=== PATIENT | female | born 1940 | race Caucasian/White ===

== ENCOUNTER 2016-08-28 12:55 | Outpatient (RCR) | payer MEDICARE, OTHER ==
--- OUTSIDE RECORDS SUMMARY | 2016-07-10 09:30 | XMS REPORT | Continuity of Care Document ---
Author Author [facility] Organization [facility] Address Unknown Phone Unavailable Care Team Providers Care Drywall Professional Name Role Phone Elizabeth Jaramillo III PCP [phone] Source Comments Some departments are not documenting in the electronic medical record. If you do not see the information that you expected, contact Release of Information in the Health Information Management department at [phone] for further assistance in locating additional records.[facility] Active Allergies and Adverse Reactions Allergen Noted Date Severity Reactions Comments Amoxicillin 05/07/2015 Medium RASH Chocolate 05/07/2015 Low HEADACHE Lanolin 05/07/2015 Low SEE COMMENTS Patient experiences swelling and hot skin to the touch. Latex 05/07/2015 Medium RASH, ITCHING Current Medications Prescription Sig. Disp. Refills Start End Date Status Date pregabalin (LYRICA) 50 mg Take 50 mg by mouth every Active capsule other day as needed. Patient takes medication once every other day ciprofloxacin HCl (CIPRO) Take 250 mg by mouth Active 250 mg tablet twice daily. lisinopril (PRINIVIL; Take 20 mg by mouth Active ZESTRIL) 20 mg tablet daily. ranitidine(+) (ZANTAC) Take 150 mg by mouth Active 150 mg tablet twice daily. ANTIOX Take by mouth. Active #11/OM3/DHA/EPA/LUT/CLAUDIA (OCUVITE ADULT 50+ PO) MULTIVIT-MIN/FA/LYCOPENE/ Take by mouth daily. Active LUT (SENTRY SENIOR PO) IBUPROFEN PO Take by mouth daily. Active cetirizine (ALLERGY Take 10 mg by mouth as Active RELIEF (CETIRIZINE)) 10 Needed for Allergy mg tablet symptoms. artificial Apply 1 Drop to both eyes Active tears/hypromellose daily. Two drops in each (ISOPTO TEARS) 0.5 % eye daily. ophthalmic solution INSULIN Inject 34 Units into Active GLARGINE,HUM.REC.ANLOG area(s) as directed (LANTUS SC) daily. potassium Patient takes one capsule Active a day for four days every other week. Active Problems Problem Noted Date Adenocarcinoma of the endometrium/uterus (HCC) 05/09/2015 Overview: Referring Physician: Dr. Cirilo Salinas PCP: Blanche Jaramillo APRN Wound care: Dr. Eitan Herreraarp 74 yo with endometrial adenocarcinoma FIGO grade 2 1. Patient has a history of hysterectomy 05/15/[address] Mario Michael in [place], [place] with a diagnosis of endometrial FIGO grade 1. Per pt., was told that they got it all and did not need further tx. Pt. has not had annual pelvic examinations or f/u since that time. 2. Pt. was referred from PCP Dr. Jaramillo to DENT REM[employer] Dr. Salinas in [place], [place] on 04/18/15 for post-menopausal bleeding beginning 03/29 (after LE US) through 04/23 (has had spotting a few days since). Upon examination the vaginal cuff was completely unidentifiable as all that is visible is friable fleshy appearing tissue that bleeds to touch. Tissue was collected and sent to pathology with results of a glandular carcinoma likely endometrial grade 2. She has had no other episodes of bleeding since hysterectomy in 2003 until this March. She had one pelvic exam since her hyst in 2010 during an IP hospital stay for a UTI. Per the pt, no mass or bleeding was noted at that time, but she was told she had some discharge. She is not aware that she received any tx at that time. Testing US 04/23/15 s/p hysterectomy, bilateral oophorectomy Pathology 04/18/15 Vaginal biopsy moderately differentiated adenocarcinoma Sections of fragments of tissue which are heavily infiltrated by atypical glands. Many of the glands show back to back gland formation with large, pleomorphic nuclei which are hyperchromatic and often contain multiple eosinophilic nuclei. Consistent with endometrial primary, but endocervical primary cannot be excluded. CT ABD/PELVIS 04/13/15 1. Diverticulosis 2. s/p hysterectomy 3. fat-containing periumbilical hernia Original Surgical Pathology 05/15/2004 - [place], [facility] Uterus with infiltrating adenocarcinoma of endometrium, FIGO grade I, nuclear grade II, invadnig to 50-80% of the myometrium, with no involvement of parametria, isthmus or cervix, and adenomyoma (3 cm). Last Assessment & Plan: Ms. Nicole is not a surgical candidate for several reasons: 1. She has locally advanced cancer and involves the entire vagina and extends off the vagina to the right sidewall region. While it may not invade the sidewall, it would require an exenteration, at best, to remove the disease. 2. Her medical comorbidites preclude any aggressive surgical intervention, including her diabetes, poor healing, blindness, limited mobility. On her CT Scan, which was done in [place], I suspect the areas of interest are: Series 2-74 to 2-79. The best mode of therapy would be to proceed with a PET to determine whether or not there is metastatic disease. If not, then to proceed with primary radiation and consideration for chemoradiation, and subsequent chemotherapy based upon response. The patient herself may be the limiting factor in getting the chemotherapy, or any therapy for that matter. She is highly anxious about leaving the confines of her home-although she has used the [facility]. She is anxious that she cannot/will not tolerate any therapy, became very upset at the thought of traveling from her home in [place] to the cancer center, radiation/chemotherapy. I also discussed her options should she decline any therapy-would recommend hospice. Consideration for epidural pain pump in the event of progressive pain. I have contacted the [facility] [place] and she has been scheduled with one of the medical oncologists as well as with Dr. Field, the radiation oncologist. If her tumor is ER+, after radiation, consideration for antiestrogen therapy, such as megace, AI, could be considered. Social History Tobacco Use Types Packs/Day Years Used Date Never Smoker Last Filed Vital Signs Vital Sign Reading Time Taken Blood Pressure - - Pulse 66 05/07/2015 1:24 PM CDT Temperature 36.7 C (98.1 F) 05/07/2015 1:24 PM CDT Respiratory Rate - - Height 1.549 m (5' 1") 05/07/2015 1:24 PM CDT Weight 104.509 kg (230 lb 6.4 05/07/2015 1:24 PM CDT oz) Body Mass Index 43.56 05/07/2015 1:24 PM CDT Oxygen Saturation 97% 05/07/2015 1:24 PM CDT Plan of Care Health Maintenance Due Date Last Done Comments Physical (Comprehensive) 1947 Exam Pertussis Vaccine 1949 Tetanus Vaccine 1955 Shingles Vaccine 1998 Osteoporosis Screening 2003 Prevnar/Pneumovax (#1) 2003 Influenza Vaccine 05/15/2016 Results from Last 3 Months Not on file
[2016-07-10 09:53] LABS: BASOPHILS % (AUTO) 1 % (0-10); EOSINOPHILS # (AUTO) 0.3 10^3/uL (0.0-0.3); EOSINOPHILS % (AUTO) 7 % (0-10); LYMPHOCYTES # (AUTO) 0.6 X 10^3 (1.0-4.0); LYMPHOCYTES % (AUTO) 13 % (12-44); MEAN CORPUSCULAR HEMOGLOBIN 33 PG (25-34); MEAN CORPUSCULAR HGB CONC 35 G/DL (32-36); MEAN CORPUSCULAR VOLUME 96 FL (80-99); MEAN PLATELET VOLUME 9.8 FL (7.4-10.4); MONOCYTES # (AUTO) 0.4 X 10^3 (0.0-1.0); MONOCYTES % (AUTO) 9 % (0-12); NEUTROPHILS # (AUTO) 3.1 X 10^3 (1.8-7.8); NEUTROPHILS % (AUTO) 71 % (42-75); PLATELET COUNT 194 10^3/uL (130-400); RED CELL DISTRIBUTION WIDTH 12.6 % (10.0-14.5); WHITE BLOOD COUNT 4.3 10^3/uL (4.3-11.0)
[2016-07-10 10:21] LABS: ALBUMIN 3.7 G/DL (3.2-4.5); BILIRUBIN,TOTAL 0.7 MG/DL (0.1-1.0); CALCIUM 8.5 MG/DL (8.5-10.1); CREATININE SERUM 1.22 MG/DL (0.60-1.30); MAGNESIUM 1.5 MG/DL (1.8-2.4); POTASSIUM 3.4 MMOL/L (3.6-5.0); TOTAL PROTEIN 5.9 G/DL (6.4-8.2)
[~2016-08-28 12:55] MED LIST: ALBU8.5H2 IH; CALC-719 PO; CEFU250T PO; GABPENTIN; HYDR-3730 PO; IBUP-30 PO; IBUP200T48 PO; INSU100V6 SC; IRBE300T13 PO; LEVO500T2 PO; LISI-552 PO; MULT-407 PO; MUPI22OI29; NF-PREG50C PO; NFAMINITAB PO; OMEP20TA7 PO; ONDA8TAB6 PO; POTA99TA18 PO; POTA99TA25 PO; SILV20CR14 TOP; VIT1CAPS8 PO
== END 2016-10-08 | disposition home or self-care (01) ==
LOC: ONC 12:55
PROVIDERS: ATTEND Internal Medicine Hematology & Oncology
DX: C54.1 Malignant neoplasm of endometrium (principal); E11.319 Type 2 diabetes mellitus with unspecified diabetic retinopathy without macular edema; H54.8 Legal blindness, as defined in USA; I10 Essential (primary) hypertension; E66.01 Morbid (severe) obesity due to excess calories; Z68.41 Body mass index [BMI] 40.0-44.9, adult; R82.99 Other abnormal findings in urine; Z79.4 Long term (current) use of insulin; Z79.899 Other long term (current) drug therapy; Z45.2 Encounter for adjustment and management of vascular access device
CPT/HCPCS: 36591; 80053; 83735; 85025; 96523; 99213

== ENCOUNTER 2017-01-05 13:07 | Outpatient (RCR) | payer MEDICARE, OTHER ==
--- OUTSIDE RECORDS SUMMARY | 2016-10-13 12:49 | XMS REPORT | Continuity of Care Document ---
Author Author [facility] Organization [facility] Address Unknown Phone Unavailable Care Team Providers Care Electric Shipyard Operator Name Role Phone Elizabeth Jaramillo III PCP [phone] Source Comments Some departments are not documenting in the electronic medical record. If you do not see the information that you expected, contact Release of Information in the Health Information Management department at [phone] for further assistance in locating additional records.[facility] Active Allergies and Adverse Reactions Allergen [...] hysterectomy 05/15/[address] Mario Michael in [place], [place] with a diagnosis of endometrial FIGO grade 1. Per pt., was told that they got it all and did not need further tx. Pt. has not had annual pelvic examinations or f/u since that time. 2. Pt. was referred from PCP Dr. Jaramillo to [facility] Dr. Salinas in [place], [place] on 04/18/15 for post-menopausal bleeding beginning [...] her CT Scan, which was done in [place], I suspect the areas of interest are: [...] her home-although she has used the hospital [facility]. She is anxious that she cannot/will not tolerate any therapy, became very upset at the thought of traveling from her home in [place] to the cancer center, radiation/chemotherapy. I also discussed her options should she decline any therapy-would recommend hospice. Consideration for epidural pain pump in the event of progressive pain. I have contacted the [facility] [place] and she has been scheduled with one [...]
[2016-10-13 13:36] LABS: BASOPHILS % (AUTO) 1 % (0-10); EOSINOPHILS # (AUTO) 0.4 10^3/uL (0.0-0.3); EOSINOPHILS % (AUTO) 7 % (0-10); LYMPHOCYTES # (AUTO) 0.7 X 10^3 (1.0-4.0); LYMPHOCYTES % (AUTO) 14 % (12-44); MEAN CORPUSCULAR HEMOGLOBIN 32 PG (25-34); MEAN CORPUSCULAR HGB CONC 33 G/DL (32-36); MEAN CORPUSCULAR VOLUME 98 FL (80-99); MEAN PLATELET VOLUME 9.2 FL (7.4-10.4); MONOCYTES # (AUTO) 0.5 X 10^3 (0.0-1.0); MONOCYTES % (AUTO) 10 % (0-12); NEUTROPHILS # (AUTO) 3.3 X 10^3 (1.8-7.8); NEUTROPHILS % (AUTO) 69 % (42-75); PLATELET COUNT 235 10^3/uL (130-400); RED BLOOD COUNT 3.34 10^6/uL (4.35-5.85); RED CELL DISTRIBUTION WIDTH 13.2 % (10.0-14.5); WHITE BLOOD COUNT 4.9 10^3/uL (4.3-11.0)
[2016-10-13 14:23] LABS: ALBUMIN 3.7 G/DL (3.2-4.5); BILIRUBIN,TOTAL 0.2 MG/DL (0.1-1.0); CALCIUM 8.8 MG/DL (8.5-10.1); CREATININE SERUM 0.99 MG/DL (0.60-1.30); POTASSIUM 4.5 MMOL/L (3.6-5.0); TOTAL PROTEIN 6.3 G/DL (6.4-8.2)
[2016-10-13 16:40] LABS: %SAT TOTAL IRON BINDING CAPIC 14 % (15-50); TIBC 314 ug/dL (280-380)
[2016-10-14 07:23] LABS: UIBC 271 ug/dL (55-450)
[2017-01-05 13:49] LABS: BASOPHILS # (AUTO) 0.1 10^3/uL (0.0-0.1); BASOPHILS % (AUTO) 1 % (0-10); EOSINOPHILS # (AUTO) 0.4 10^3/uL (0.0-0.3); EOSINOPHILS % (AUTO) 7 % (0-10); LYMPHOCYTES # (AUTO) 0.6 X 10^3 (1.0-4.0); LYMPHOCYTES % (AUTO) 9 % (12-44); MEAN CORPUSCULAR HEMOGLOBIN 33 PG (25-34); MEAN CORPUSCULAR HGB CONC 33 G/DL (32-36); MEAN CORPUSCULAR VOLUME 98 FL (80-99); MONOCYTES # (AUTO) 0.6 X 10^3 (0.0-1.0); MONOCYTES % (AUTO) 10 % (0-12); NEUTROPHILS # (AUTO) 4.8 X 10^3 (1.8-7.8); NEUTROPHILS % (AUTO) 74 % (42-75); PLATELET COUNT 252 10^3/uL (130-400); RED BLOOD COUNT 3.35 10^6/uL (4.35-5.85); RED CELL DISTRIBUTION WIDTH 14.2 % (10.0-14.5); WHITE BLOOD COUNT 6.5 10^3/uL (4.3-11.0)
[2017-01-05 14:26] LABS: ALBUMIN 3.5 G/DL (3.2-4.5); BILIRUBIN,TOTAL 0.3 MG/DL (0.1-1.0); CALCIUM 8.8 MG/DL (8.5-10.1); CREATININE SERUM 1.27 MG/DL (0.60-1.30); POTASSIUM 4.8 MMOL/L (3.6-5.0)
[2017-01-05 16:39] LABS: %SAT TOTAL IRON BINDING CAPIC 15 % (15-50); TIBC 273 ug/dL (280-380)
[2017-01-06 10:16] LABS: UIBC 231 ug/dL (55-450)
== END 2017-01-11 | disposition home or self-care (01) ==
LOC: ONC 13:07
PROVIDERS: ATTEND Internal Medicine Hematology & Oncology
DX: C54.1 Malignant neoplasm of endometrium (principal); D63.0 Anemia in neoplastic disease; E11.319 Type 2 diabetes mellitus with unspecified diabetic retinopathy without macular edema; H54.8 Legal blindness, as defined in USA; I10 Essential (primary) hypertension; E66.01 Morbid (severe) obesity due to excess calories; Z68.41 Body mass index [BMI] 40.0-44.9, adult; R82.99 Other abnormal findings in urine; Z79.4 Long term (current) use of insulin; Z79.899 Other long term (current) drug therapy; Z45.2 Encounter for adjustment and management of vascular access device; R93.3 Abnormal findings on diagnostic imaging of other parts of digestive tract
CPT/HCPCS: 36591; 80053; 82378; 82728; 83540; 83735; 85025; 96523; 99213

== ENCOUNTER → 2017-02-05 | Outpatient (CLI) | payer MEDICARE, OTHER ==
[2017-02-05] MEDS: IOHEXOL 350 MG/ML 100 ML (OMNIPAQUE 350) VIAL IV ONE (12:54)
[2017-02-05] MEDS: BARIUM SUSPENSION 2.1% (VANILLA SILQ) 450 ML PO ONE (12:54)
[2017-02-05] MEDS: NS 100 ML (IVPB) BAG IV ONE (12:54)
--- NOTE | 2017-02-05 17:48 | Diagnostic Imaging Report ---
PROCEDURE: CT abdomen and pelvis with contrast. TECHNIQUE: Multiple contiguous axial images were obtained through the abdomen and pelvis after administration of intravenous contrast. INDICATION: Endometrial cancer. History of endometriosis. Urinary incontinence. 100 mL of Omnipaque 350 is administered intravenously. COMPARISON: 07/10/2016. FINDINGS: The lung bases demonstrate minimal scarring. The liver, the spleen, the pancreas, and adrenal glands appear unremarkable. The kidneys have symmetric enhancement and excretion. There is no hydronephrosis. The abdominal aorta is normal in caliber. No para-aortic significantly enlarged lymph node is seen. There is a periumbilical fat-containing hernia with defect measuring 1.7 cm transversely and 2.2 cm in craniocaudal dimension. There is thickening in the sigmoid colon and rectum similar to the previous study. As stated previously, it could be from radiation changes. Similarly, radiation cystitis may be responsible for the thickening in the urinary bladder wall. Areas of thickening in the transverse colon have resolved. There is no bowel obstruction. Perirectal fatty stranding is again seen without change. No pelvic lymphadenopathy. No soft tissue mass in the abdomen or pelvis to suggest tumor recurrence. Advanced degenerative changes in the osseous structures seen. IMPRESSION: 1. Stable thickening in the rectosigmoid and the urinary bladder presumably related to radiation changes. No developing mass or lymphadenopathy seen to suggest tumor recurrence or metastasis. 2. Periumbilical fat-containing hernia. Dictated by: Dictated on workstation # [id number]
== END ==
LOC: RAD 12:16
PROVIDERS: ATTEND Internal Medicine Hematology & Oncology
DX: C54.1 Malignant neoplasm of endometrium (principal); K42.9 Umbilical hernia without obstruction or gangrene
CPT/HCPCS: 74177

== ENCOUNTER 2017-02-19 14:02 | Observation (INO) | payer MEDICARE, OTHER ==
[~2017-02-19] VITALS: Ht 149.9 cm; Wt 81.2 kg
[2017-02-19] MEDS ORDERED: fentaNYL INJECTION 100 MCG/2 ML AMP ONE ×2 (14:19→17:01)
--- NOTE | 2017-02-19 14:24 | ED General ---
General Stated Complaint: R SIDE ABD/BREAST PAIN Source of Information: Patient Exam Limitations: No Limitations History of Present Illness Time Seen by Provider: 14:19 Initial Comments The patient is a 76-year-old white female who was to have an appointment with Dr. Vargas at the cancer center this morning. On her arrival there she appeared to be in such distress that she was sent to the emergency room. She reports that she has been having a right lower chest radicular type pain for approximately one month. She has recently been seen at [facility]. Studies from there are not available to us but apparently included CT scanning and perhaps a PET scan. She is known to have endometrial carcinoma of some duration. It is recurrent and she has been treated for this. The extent of disease is not clear to us. Timing/Duration: Other (1 month) Associated Systoms: Chest Pain, Shortness of Air Allergies and Home Medications Allergies Coded Allergies: ampicillin (Unverified Allergy, Unknown, 12/23/06) lanolin (Unverified Allergy, Unknown, 12/23/06) metformin (Unverified Allergy, Unknown, 12/23/06) Munthjb-Bsg-Qou Reductase Inhibitor (Unverified Adverse Reaction, Unknown , 12/17/14) adhesive tape (Unverified Adverse Reaction, Unknown, 12/23/06) latex (Unverified Adverse Reaction, Unknown, 12/17/14) Home Medications Calcium Carbonate 300 Mg Tab.chew, 300 MG PO TID PRN for INDIGESTION, (Reported) Hydrocodone/Acetaminophen 1 Each Tablet, 1-2 EACH PO Q6H, #35 Prescribed by: TELMA GRIER on 10/11/15 0906 Ibuprofen 200 Mg Tablet, 400 MG PO EVERY OTHER NIGHT, (Reported) TAKES 2 (200MG) TABLETS EVERY OTHER NIGHT, TAKES ON NIGHTS SHE DOES NOT TAKE LYRICA Insulin Glargine,Hum.rec.anlog 100 Unit/1 Ml Vial, 34 UNITS SC HS, (Reported) Levofloxacin 500 Mg Tablet, 500 MG PO DAILY, #10 Prescribed by: HUGH MCCULLOUGH on 03/17/16 1410 Lisinopril 20 Mg Tablet, 20 MG PO DAILY, (Reported) Multivitamin with Minerals 1 Each Tablet, 1 TAB PO DAILY, (Reported) Omeprazole 20 Mg Tablet.dr, 20 MG PO, (Reported) Ondansetron HCl 8 Mg Tablet, 8 MG PO, (Reported) Potassium Gluconate 99 Mg Tablet.er, 99 MG PO DAILY PRN for CRAMPS, (Reported) Silver Sulfadiazine 20 Gm Cream..g., 0 GM TOP DAILY, #1 Ref 2 Prescribed by: KAREN MORALES on 08/06/15 0937 Vit C/E/Zn/Coppr/Lutein/Zeaxan 1 Each Capsule, 1 CAP PO DAILY, (Reported) [Gabpentin] , (Reported) Constitutional: see HPI EENTM: no symptoms reported, other (blind) Respiratory: short of breath Cardiovascular: no symptoms reported Gastrointestinal: abdominal pain, loss of appetite, other (weight loss in the 12 pound range) Genitourinary: no symptoms reported Skin: other (as yet undiagnosed rash and ulcerations on both lower legs) Psychiatric/Neurological: No Symptoms Reported Hematologic/Lymphatic: No Symptoms Reported Immunological/Allergic: no symptoms reported Past Bkpvanq-Kwatwm-Xcgoxq Hx Patient Social History Recent Foreign Travel: No Contact w/Someone Who Travel: No Immunizations Up To Date Date of Pneumonia Vaccine: Oct 02, 2015 Date of Influenza Vaccine: Jul 15, 2015 Surgeries HX Surgeries: Yes Surgeries: Abdominal, Section, Eye Surgery, Gallbladder, Hysterectomy , Oophorectomy, Orthopedic Respiratory Hx Respiratory Disorders: No Cardiovascular Hx Cardiac Disorders: Yes Cardiac Disorders: Chronic Edema/Swelling Neurological Hx Neurological Disorders: Yes Neurological Disorders: Neuropathy Reproductive System Hx Reproductive Disorders: No Genitourinary Hx Genitourinary Disorders: No Gastrointestinal Hx Gastrointestinal Disorders: No Musculoskeletal Hx Musculoskeletal Disorders: Yes Musculoskeletal Disorders: Degenerate Disk Disease, Arthritis, Chronic Back Pain Endocrine Hx Endocrine Disorders: Yes (Type II, obesity) Endocrine Disorders: Diabetes, Insulin dep HEENT HX ENT Disorders: Yes HEENT Disorders: Macular Degeneration Loss of Vision: Bilateral Cancer Hx Cancer: Yes Cancer: Uterine, Vaginal Psychosocial Hx Psychiatric Problems: No Integumentary HX Skin/Integumentary Disorder: No Blood Transfusions Hx Blood Disorders: No ("I have thin blood") Adverse Reaction to a Blood Tr: No Physical Exam Vital Signs Vital Sign - Last 12Hours 02/19/17 14:02 Temp 98.2 Pulse 82 Resp 18 B/P (MAP) 158/88 Pulse Ox 99 O2 Delivery Room Air Capillary Refill : General Appearance: Anxious, Chronically ill HEENT: Normal ENT Inspection Neck: Normal Inspection Respiratory: Other (tachypneic but breath sounds are heard throughout) Cardiovascular: Regular Rate, Rhythm, No Edema, No Gallop, No JVD, No Murmur, Normal Peripheral Pulses Gastrointestinal: Normal Bowel Sounds, No Organomegaly, No Pulsatile Mass, Non Tender, Soft Back: Normal Inspection, No CVA Tenderness, No Vertebral Tenderness Extremity: Normal Capillary Refill, Normal Inspection, Normal Range of Motion, Non Tender, No Calf Tenderness, No Pedal Edema Neurologic/Psychiatric: Alert, Oriented x3, No Motor/Sensory Deficits, Normal Mood/Affect Skin: Other Comments No vesicles on the right lower chest to suggest shingles. Both lower extremities show multiple shallow ulcerations from knee to malleoli Progress/Results/Core Measures Results/Orders Lab Results Laboratory Tests Test 02/19/17 14:24 Range/Units White Blood Count 5.8 4.3-11.0 10^3/uL Red Blood Count 2.78 L 4.35-5.85 10^6/uL Hemoglobin 8.9 L 11.5-16.0 G/DL Hematocrit 27 L 35-52 % Mean Corpuscular Volume 98 80-99 FL Mean Corpuscular Hemoglobin 32 25-34 PG Mean Corpuscular Hemoglobin Concent 33 32-36 G/DL Red Cell Distribution Width 13.3 10.0-14.5 % Platelet Count 300 130-400 10^3/uL Mean Platelet Volume 9.0 7.4-10.4 FL Neutrophils (%) (Auto) 78 H 42-75 % Lymphocytes (%) (Auto) 10 L 12-44 % Monocytes (%) (Auto) 9 0-12 % Eosinophils (%) (Auto) 3 0-10 % Basophils (%) (Auto) 1 0-10 % Neutrophils # (Auto) 4.5 1.8-7.8 X 10^3 Lymphocytes # (Auto) 0.6 L 1.0-4.0 X 10^3 Monocytes # (Auto) 0.5 0.0-1.0 X 10^3 Eosinophils # (Auto) 0.2 0.0-0.3 10^3/uL Basophils # (Auto) 0.0 0.0-0.1 10^3/uL Sodium Level 136 135-145 MMOL/L Potassium Level 4.7 3.6-5.0 MMOL/L Chloride Level 105 98-107 MMOL/L Carbon Dioxide Level 21 21-32 MMOL/L Anion Gap 10 5-14 MMOL/L Blood Urea Nitrogen 22 H 7-18 MG/DL Creatinine 1.47 H 0.60-1.30 MG/DL Estimat Glomerular Filtration Rate 34 BUN/Creatinine Ratio 15 Glucose Level 173 H 70-105 MG/DL Calcium Level 8.8 8.5-10.1 MG/DL Total Bilirubin 0.4 0.1-1.0 MG/DL Aspartate Amino Transf (AST/SGOT) 15 5-34 U/L Alanine Aminotransferase (ALT/SGPT) 9 0-55 U/L Alkaline Phosphatase 65 40-136 U/L Total Protein 5.9 L 6.4-8.2 G/DL Albumin 3.3 3.2-4.5 G/DL My Orders Orders - LESIA MERAZ MD Cbc With Automated Diff (02/19/17 14:16) Comprehensive Metabolic Panel (02/19/17 14:16) Ua Culture If Indicated (02/19/17 14:16) Fentanyl Injection (Sublimaze Injection (02/19/17 14:19) Fentanyl Injection (Sublimaze Injection (02/19/17 14:45) Ct Thoracic Spine Wo (02/19/17 14:44) Medications Given in ED Current Medications Medications Dose Ordered Sig/Anupam Route Start Time Stop Time Status Last Admin Dose Admin Fentanyl Citrate 50 mcg ONCE ONCE IVP 02/19/17 14:45 02/19/17 14:46 DC 02/19/17 14:57 50 MCG Fentanyl Citrate 100 mcg STK-MED ONCE .ROUTE 02/19/17 14:19 02/19/17 14:24 DC 02/19/17 14:31 50 MCG Vital Signs/I&O Vital Sign - Last 12Hours 02/19/17 14:02 Temp 98.2 Pulse 82 Resp 18 B/P (MAP) 158/88 Pulse Ox 99 O2 Delivery Room Air Departure Communication Progress Notes [address] Mcdowell and she will be admitted Impression Impression: Primary Impression: right thoracic radicular pain Disposition: ADMITTED INPATIENT Condition: Stable/Unchanged Decision to Admit Reason: Admit from ER (General) Decision to Admit/Date: Feb 19, 2017 Time/Decision to Admit Time: 16:06 Departure-Patient Inst. Referrals: KAREN MORALES DO (PCP/Family) Primary Care Physician LESIA MERAZ MD Feb 19, 2017 14:24
[2017-02-19 14:40] LABS: BASOPHILS % (AUTO) 1 % (0-10); EOSINOPHILS # (AUTO) 0.2 10^3/uL (0.0-0.3); EOSINOPHILS % (AUTO) 3 % (0-10); LYMPHOCYTES # (AUTO) 0.6 X 10^3 (1.0-4.0); LYMPHOCYTES % (AUTO) 10 % (12-44); MEAN CORPUSCULAR HEMOGLOBIN 32 PG (25-34); MEAN CORPUSCULAR HGB CONC 33 G/DL (32-36); MEAN CORPUSCULAR VOLUME 98 FL (80-99); MONOCYTES # (AUTO) 0.5 X 10^3 (0.0-1.0); MONOCYTES % (AUTO) 9 % (0-12); NEUTROPHILS # (AUTO) 4.5 X 10^3 (1.8-7.8); NEUTROPHILS % (AUTO) 78 % (42-75); PLATELET COUNT 300 10^3/uL (130-400); RED BLOOD COUNT 2.78 10^6/uL (4.35-5.85); RED CELL DISTRIBUTION WIDTH 13.3 % (10.0-14.5); WHITE BLOOD COUNT 5.8 10^3/uL (4.3-11.0)
[2017-02-19] MEDS ORDERED: fentaNYL INJECTION 100 MCG/2 ML AMP IVP ONE ×2 (14:45→17:15)
[2017-02-19 14:52] LABS: ALBUMIN 3.3 G/DL (3.2-4.5); BILIRUBIN,TOTAL 0.4 MG/DL (0.1-1.0); CALCIUM 8.8 MG/DL (8.5-10.1); CREATININE SERUM 1.47 MG/DL (0.60-1.30); POTASSIUM 4.7 MMOL/L (3.6-5.0); TOTAL PROTEIN 5.9 G/DL (6.4-8.2)
--- NOTE | 2017-02-19 15:28 | Diagnostic Imaging Report ---
PROCEDURE: CT thoracic spine without contrast. TECHNIQUE: Multiple axial computerized tomography images were obtained from the base of the thoracic spine to the vertex without intravenous contrast. INDICATION: Back pain. FINDINGS: There is satisfactory alignment of the thoracic spine. The vertebral body heights are preserved. Disc heights are also preserved. There is mild right convexity curvature of the thoracic spine. There is bridging syndesmophytes, anteriorly and laterally, in the mid and lower thoracic spine levels. There is minimal posterior osteophyte formation at the lower lumbar spine levels and suggestion of slight disc herniation with no definite evidence of high-grade spinal canal stenosis. This, however, could be better evaluated with MRI. The facet joints have normal alignment. No fracture is seen. There is fluid distention seen within the distal esophagus, presumably related to reflux, with thickening in the distal esophagus suggestive of esophagitis. Correlate clinically and consider endoscopic evaluation. IMPRESSION: Degenerative changes. No fracture is seen. Dictated by: Dictated on workstation # [id number]
[2017-02-19 17:25] VITALS: BP 191/80
[2017-02-19] MEDS: fentaNYL INJECTION 100 MCG/2 ML AMP IV PRN ×2 (17:57→20:35)
[2017-02-19] MEDS ORDERED: CATHETER FLUSH 10 ML SYR IV PRN (18:00)
[2017-02-19] MEDS: NS IV 1000 ML 1,000 ML IV SCH (18:00)
[2017-02-19 19:30] VITALS: BP 189/64
--- NOTE | 2017-02-19 20:19 | CONSULTATION REPORT ---
DATE OF SERVICE: 02/19/2017 HISTORY OF PRESENT ILLNESS: The patient is a 76-year-old female who was seen at the [facility] by Dr. Vargas for an appointment. During the visit, she did have pain in the right lower chest and states that this was a chronic issue; however, this has worsened over time. She has a history of endometrial cancer of some duration; however, we are not sure of what stage this is at this point. She was also recently seen at [facility] for evaluation of this as well as skin lesions of the lower extremities. She reports that she has also had some issues with dysphagia and, also, reports a longstanding history of gastroesophageal reflux disease. She does not report any chasidy episodes of nausea and vomiting as well as no hematemesis, no coffee ground emesis. For the most part, she states that her bowel movements have been normal. PAST MEDICAL HISTORY: Endometrial cancer, degenerative joint disease, type 2 diabetes, macular degeneration, neuropathy, bilateral lower extremity edema. PAST SURGICAL HISTORY: section, bilateral eye surgery, cholecystectomy, hysterectomy and completion oophorectomy. ALLERGIES: AMPICILLIN, LANOLIN, METFORMIN, STATIN DRUGS, SOME ADHESIVE TAPES, LATEX. MEDICATIONS: Hydrocodone p.r.n., insulin 34 units at bedtime, lisinopril 20 mg daily, omeprazole 20 mg daily, potassium 99 mg p.r.n., gabapentin daily. SOCIAL HISTORY: Negative smoke. Negative alcohol. FAMILY HISTORY: Mother, uterine cancer. Sister, brother and child lung cancer and diabetes. Father myocardial infarction at age 46. VITAL SIGNS: Temperature 98.2, blood pressure 150/88, pulse 82, respirations 18, pulse ox 99% on room air. REVIEW OF SYSTEMS: This is a well-nourished female, currently guarded secondary to the pain in the right upper chest. Intermittent episodes of dysphagia. No known hematemesis. No coffee ground emesis. She states that she does have constipation due to pain medication; however, this is her baseline. No red blood per rectum. No dark tarry stools. No fever or chills. No recent inadvertent weight loss. PHYSICAL EXAMINATION: CHEST: Good breath sounds bilaterally. HEART: Regular. EXTREMITIES: No lower extremity edema. Negative Homans sign. HEENT: No scleral icterus. NECK: No cervical lymphadenopathy. ABDOMEN: Soft. Nondistended. There is mild discomfort in the epigastric region upon deep palpation. ASSESSMENT AND PLAN: A 68-year-old female with radicular right upper chest pain as well as esophageal dilatation detected on a computerized tomography scan of the thoracic spine. This may be related to gastroesophageal reflux disease and esophagitis; however, we cannot rule out stricture versus hiatal hernia versus tumor obstruction. We will proceed with esophagogastroduodenoscopy as well as biopsy as appropriate as well as possible dilatation if the stricture is identified. We will also discuss the possibility of a gastrostomy tube if there is metastatic disease that will cause impending distal esophageal obstruction. Job ID: [id number] DocumentID: [id number] Dictated Date: 02/19/2017 18:29:15 Insurance Agency Sales Manager Date: 02/19/2017 20:18:42 Dictated By: TELMA GRIER MD
--- NOTE | 2017-02-19 22:08 | Conscious Sedation/ASA ---
Conscious Sedation Pre-Proced Time Reviewed: 22:00 ASA Class: 4 Airway Mallampati Classification: ([place] appropriate class) I. II. III, IV Lungs Heart ASA score ASA 1: a normal healthy patient ASA 2: a patient with a mild systemic disease (mid diabetes, controlled hypertension, obesity ASA 3: a patient with a severe systemic disease that limits activity (angina , COPD, prior Myocardial infarction) ASA 4: a patient with an incapacitating disease that is a constant threat to life (CHF, renal failure) ASA 5: a moribund patient not expected to survive 24 hrs. (ruptured aneurysm) ASA 6: a declared brain patient whose organs are being harvested. For emergent operations, add the letter E after the classification Grade 3 Sedation Plan: Analgesia, Amnesia, Plan communicated to team members, Discussed options with patient/fam, Discussed risks with patient/fam Note The patient is an appropriate candidate to undergo the planned procedure, sedation, and anesthesia. The patient immediately re-assessed prior to indication. TELMA GRIER MD Feb 19, 2017 10:08 pm
--- NOTE | 2017-02-19 22:10 | Progress Note-Pre Operative ---
Pre-Operative Progress Note H&P Reviewed The H&P was reviewed, patient examined and no changes noted. Date Seen by Provider: Feb 19, 2017 Time Seen by Provider: 22:00 Date H&P Reviewed: Feb 19, 2017 Time H&P Reviewed: 22:00 Pre-Operative Diagnosis: distal esophageal lesion TELMA GRIER MD Feb 19, 2017 10:10 pm
[2017-02-19] MEDS: PANTOPRAZOLE 40 MG/10 ML (PROTONIX) VIAL IV SCH (22:46)
[2017-02-20 00:35] VITALS: BP 167/68
[2017-02-20] MEDS: fentaNYL INJECTION 100 MCG/2 ML AMP IV PRN (01:08)
[2017-02-20] MEDS: NS IV 1000 ML 1,000 ML IV SCH ×3 (02:01→18:05)
[2017-02-20 04:30] VITALS: BP 161/66
[2017-02-20] MEDS: inSUlin ASPART (NovoLOG) 1 UNIT/0.01 ML (CHARGE PER UNIT) SC SCH ×4 (06:33→21:15)
[2017-02-20 08:00] VITALS: BP 137/62
[2017-02-20] MEDS ORDERED: METF500T8 PO (08:56)
[2017-02-20] MEDS ORDERED: TRIM100T PO (08:56)
[2017-02-20] MEDS ORDERED: NF-SOLIF5T PO (08:56)
[2017-02-20] MEDS ORDERED: CITA10TA7 PO (08:56)
[2017-02-20] MEDS ORDERED: AMIT25TA9 PO (08:56)
[2017-02-20] MEDS ORDERED: TRUBIOTIC PO (09:06)
[2017-02-20] MEDS ORDERED: HYDR-700 PO (09:06)
[2017-02-20] MEDS ORDERED: VIT1CAPS9 PO (09:06)
[2017-02-20] MEDS ORDERED: MAGN400C PO (09:06)
[2017-02-20] MEDS ORDERED: RANI150T15 PO (09:06)
[2017-02-20] MEDS ORDERED: CARB15DR58 OU (09:06)
[2017-02-20] MEDS: PANTOPRAZOLE 40 MG/10 ML (PROTONIX) VIAL IV SCH ×2 (09:31→20:30)
[2017-02-20] MEDS ORDERED: LIDOCAINE JELLY 2% (XYLOCAINE) 5 ML TUBE ONE (10:03)
[2017-02-20] MEDS ORDERED: HURRICAINE EXT TUBE (BENZOCAINE) ONE (10:03)
[2017-02-20] MEDS ORDERED: NS IV 500 ML 500 ML ONE (10:03)
[2017-02-20] MEDS ORDERED: fentaNYL INJECTION 100 MCG/2 ML AMP ONE (10:03)
[2017-02-20] MEDS ORDERED: MIDAZOLAM 2 MG/2 ML (VERSED) VIAL ONE ×2 (10:03)
[2017-02-20] MEDS: NS IV 500 ML 500 ML IV SCH (10:10)
[2017-02-20] MEDS ORDERED: FAMOTIDINE 20 MG (PEPCID) TABLET PO PRN (10:14)
[2017-02-20] MEDS ORDERED: ARTIFICAL TEARS 0.4 ML UNIT DOSE (REFRESH PLUS) OU PRN (10:30)
[2017-02-20] MEDS: fentaNYL INJECTION 100 MCG/2 ML AMP IVP PRN ×2 (10:30→10:37)
[2017-02-20] MEDS ORDERED: hydrOXYzine (VISTARIL) 25 MG CAP PO PRN (10:45)
[2017-02-20] MEDS ORDERED: LIDOCAINE JELLY 2% (XYLOCAINE) 5 ML TUBE TOP ONE (11:00)
[2017-02-20] MEDS ORDERED: MIDAZOLAM 2 MG/2 ML (VERSED) VIAL IVP PRN (11:00)
[2017-02-20] MEDS ORDERED: HURRICAINE EXT TUBE (BENZOCAINE) XX ONE (11:00)
--- NOTE | 2017-02-20 11:05 | Progress Note-Post Operative ---
Post-Operative Progess Note Surgeon (s)/Frame Pulley Mortising Machine Operator (s) Surgeon TELMA GRIER MD Frame Pulley Mortising Machine Operator: none Pre-Operative Diagnosis distal esophageal lesion Post-Operative Diagnosis distal esophageal candidiasis, reflux esophagitis(class C), small HH(2cm), moderate gastritis, no distal obstructions. Procedure & Operative Findings Date of Procedure 02/20/17 Procedure Performed/Findings EGD with brushings and bx. Anesthesia Type CS Estimated Blood Loss Estimated blood loss (mL): minimal Specimens/Packing Specimens Removed distal esophageal brushings, GE jxn, antrum TELMA GRIER MD Feb 20, 2017 11:05
--- NOTE | 2017-02-20 11:27 | History & Physical-Hospitalist ---
HPI History of Present Illness: HPI/Chief Complaint CC: Left Side Pain HPI: This is a 76 yoWF pt who presents with Right Thoracic Radiculopathy along with difficulty swallowing with 12# weight loss the past 4 weeks. Left side pain occurs on/off of the past 1 month and multiple scans have been obtained all reveal no abnl. Currently she has no side pain now. Pt sees Dermatology at [facility] for the chronic and itchy skin condition and they have no cure. 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 Pt continues to have skin irritation. EGD revealed yeast esophagitis so appropriate treatment has been started Plan: Reconcile home meds - hold Ibuprofen and Metformin SCDs Scribed by Savannah Cornelius under the direct supervision of Dr. Mcdowell. Source: patient, RN/MD Exam Limitations: no limitations Date Seen 02/20/17 Time Seen by Provider: 12:20 Attending Physician Pauline Mcdowell Mary K MD Referring Physician Date of Admission Feb 19, 2017 at 16:20 Home Medications & Allergies Home Medications Reviewed patient Home Medication Reconciliation Form Allergies Allergies Coded Allergies ampicillin (Unverified Allergy, Unknown, 12/23/06) lanolin (Unverified Allergy, Unknown, 12/23/06) metformin (Unverified Allergy, Unknown, 12/23/06) Ykquprq-Zph-Lsu Reductase Inhibitor (Unverified Adverse Reaction, Unknown, 12/17) adhesive tape (Unverified Adverse Reaction, Unknown, 12/23/06) latex (Unverified Adverse Reaction, Unknown, 12/17/14) Past Gaahwxz-Bjtijd-Mmoclq Hx Patient Social History Marrital Status: Employed/Student: retired Alcohol Use: Denies Use Recreational Drug Use: No Smoking Status: Never a Smoker Physical Abuse Screen: No Sexual Abuse: No Recent Foreign Travel: No Contact w/other who traveled: No Recent Infectious Disease Expo: No Immunizations Up To Date Date of Pneumonia Vaccine: Oct 02, 2015 Date of Influenza Vaccine: Jul 15, 2015 Seasonal Allergies Seasonal Allergies: No Surgeries HX Surgeries: Yes Surgeries: Abdominal, Section, Eye Surgery, Gallbladder, Hysterectomy , Oophorectomy, Orthopedic Respiratory Hx Respiratory Disorders: No Cardiovascular Hx Cardiovascular Disorders: Yes Cardiac Disorders: Chronic Edema/Swelling Neurological Hx Neurological Disorders: Yes Neurological Disorders: Neuropathy Reproductive System Hx Reproductive Disorders: No Genitourinary Hx Genitourinary Disorders: Yes Genitourinary Disorders: Renal Failure Gastrointestinal Hx Gastrointestinal Disorders: No Musculoskeletal Hx Musculoskeletal Disorders: Yes Musculoskeletal Disorders: Degenerate Disk Disease, Arthritis, Chronic Back Pain Endocrine Hx Endocrine Disorders: Yes (Type II, obesity) Endocrine Disorders: Diabetes, Insulin dep HEENT HX ENT Disorders: Yes HEENT Disorders: Macular Degeneration Loss of Vision: Bilateral Cancer Hx Cancer: Yes Cancer: Uterine, Vaginal Psychosocial Hx Psychiatric Problems: No Behavioral Health Disorders: Sleep Difficulties Integumentary HX Skin/Integumentary Disorder: No Skin/Integumentary Disorders: Pruritis, Recent Skin Changes Blood Transfusions Hx Blood Disorders: No ("I have thin blood") Adverse Reaction to a Blood Tr: No Family Medical History Family Hx: FH: lung cancer G8 SISTER FH: stomach cancer G8 BROTHER FH: uterine cancer 19 MOTHER Myocardial infarction 19 FATHER Neoplasm SON Review of Systems Date Seen by Provider: Feb 20, 2017 Time Seen by Provider: 12:20 Constitutional: see HPI, malaise, weakness, weight loss EENTM: no symptoms reported Respiratory: no symptoms reported Cardiovascular: no symptoms reported Gastrointestinal: dysphagia Genitourinary: no symptoms reported Musculoskeletal: no symptoms reported Skin: rash Psychiatric/Neurological: Depressed All Other Systems Reviewed Negative Unless Noted: Yes Physical Exam Physical Exam Vital Signs Vital Sign - Last 12Hours 02/19/17 14:02 Temp 98.2 Pulse 82 Resp 18 B/P (MAP) 158/88 Pulse Ox 99 O2 Delivery Room Air Capillary Refill : Less Than 3 Seconds General Appearance: WD/WN, Mild Distress (due to itching) Eyes: Bilateral Eye Normal Inspection, Bilateral Eye PERRL HEENT: PERRL/EOMI, Normal ENT Inspection, Pharynx Normal Neck: Full Range of Motion, Normal Inspection, Non Tender, Supple, Carotid Bruit Respiratory: Chest Non Tender, Lungs Clear, Normal Breath Sounds, No Accessory Muscle Use, No Respiratory Distress Cardiovascular: Regular Rate, Rhythm, No Edema, No Gallop, No JVD, No Murmur, Normal Peripheral Pulses Gastrointestinal: Normal Bowel Sounds, No Organomegaly, No Pulsatile Mass, Non Tender, Soft Back: Normal Inspection, No CVA Tenderness, No Vertebral Tenderness Extremity: Normal Capillary Refill, Normal Inspection, Normal Range of Motion, Non Tender, No Calf Tenderness, No Pedal Edema Neurologic/Psychiatric: Alert, Oriented x3, No Motor/Sensory Deficits, Normal Mood/Affect Skin: Rash (with multiple ulcerations on arms and legs w/excoriation) Lymphatic: No Adenopathy Results Results/Procedures Lab Laboratory Tests 02/19/17 14:24 Assessment/Plan Admission Diagnosis Assessment: Severe dysphagia with 12 pound weight loss the last 1 month EGD reveals yeast esophagitis placed on appropriate treatment Severe and recurrent left sided rib pain with negative multiple scans done recently but no current pain today Chronic skin condition that has severe itching and subsequent excoriation seen at [facility] but no cure available Diabetes mellitus Acute dehydration with acute renal insufficiency 1.47 creatinine Overactive bladder GERD Recurrent UTI Assessment and Plan Plan: Reconcile all home meds Maintain Diflucan IV maintain itching treatment Continue IV fluids Check labs in a.m. Clinical Quality Measures DVT/VTE Risk/Contraindication: Risk Factor Score Per Nursin RFS Level Per Nursing on Admit: 4+=Very High PAULINE MCDOWELL DO Feb 20, 2017 11:27
[2017-02-20] MEDS ORDERED: FLUCONAZOLE 200 MG/100 ML 100 ML IV NR (11:29)
--- NOTE | 2017-02-20 11:43 | OPERATIVE REPORT ---
DATE OF SERVICE: 02/19/2017 ATTENDING PRIMARY CARE PHYSICIAN: Dr. Missael Jaramillo. PREOPERATIVE DIAGNOSES: Dysphagia and abdominal pain. POSTOPERATIVE DIAGNOSES: Mid to distal esophageal candidiasis, reflux esophagitis class C, small hiatal hernia approximately 2 cm in size, moderate severity gastritis, no distal obstructions. PROCEDURE: EGD with biopsy and brushings. SURGEON: Dr. Telma Grier. ANESTHESIA: Conscious sedation. ESTIMATED BLOOD LOSS: Minimal. FINDINGS: Esophageal candidiasis encompassing the middle and distal third of the esophagus, reflux esophagitis class C, small hiatal hernia 2 cm in size, moderate severity gastritis. No formal ulcers, polyps or any neoplasms identified. Pylorus and duodenum appeared normal with no distal obstructions. DISPOSITION: The patient tolerated the procedure well. INDICATIONS: The patient is a 76-year-old female who presented to [facility] Emergency Department with right upper abdominal quadrant and epigastric pain with radiation towards the back. She reports that this occurs several times a month; however, usually resolves on its own. She does have a history of endometrial cancer and reoccurrence identified approximately 09/2016. She was seen by oncology and a port was placed and then she was started on chemotherapy. She reports that she recently finished her course of chemotherapy. During this process, she does report that she has had some issues with gastroesophageal reflux disease, which have worsened. She also reports dysphagia for solids and liquids. She reports that most of the time she is able to tolerate both of these; however, on occasion she will have dysphagia and have regurgitation and spit up a substantial amount of saliva and has this associated pain. She reports that she does have constipation; however, for the most part this is normal for her. DESCRIPTION OF PROCEDURE: The patient was brought to the endoscopy suite, laid in the left lateral decubitus position. After adequate IV pain and sedating medications and conscious sedation anesthesia, the mouthpiece was applied. Endoscope was placed in the mouth, visualizing the pharynx and hypopharyngeal region. Vocal cords, epiglottis and vallecula identified and appeared to be normal. The endoscope was then advanced through the first and second portions of the esophagus. At the second and distal portion of the esophagus, a esophageal candidiasis, which was circumferential, was identified. Multiple brushings were taken with visualization of good hemostasis. The endoscope was then advanced to the GE junction, where the GE junction was intrathoracic, consistent with a hiatal hernia. There was also significant reflux esophagitis class C; however, no strictures identified. A biopsy was taken using forceps with visualization of good hemostasis. The endoscope was then advanced in the stomach. The endoscope retroflexed, again, visualizing a hiatal hernia approximately 2 cm in size. There was moderate severity gastritis throughout the stomach; however, there were no polyps, ulcers or any neoplasms identified. A biopsy was taken of the antrum with forceps with visualization of good hemostasis. The endoscope was then advanced to the pylorus into the first and second portions of the duodenum, which appeared normal with no distal obstructions. The endoscope was slowly withdrawn, taking a second look and suctioning of residual air with no additional findings. The patient tolerated the procedure well. We will start her on Diflucan 200 mg today and then on 100 mg daily for approximately 14 days. We will also increase her omeprazole to Protonix 40 mg daily and have her proceed with smaller, more frequent meals, avoiding eating at night as well as head elevation while lying supine. She also needs to avoid caffeinated beverages, spicy, greasy and acidic foods. We will start her on a dysphagia soft diet and once she is tolerating a diet and has good pain control, she may be discharged from our perspective. Job ID: [id number] DocumentID: [id number] Dictated Date: 02/20/2017 11:03:26 Certified Wellness Program Coordinator Date: 02/20/2017 11:42:36 Dictated By: TELMA GRIER MD [facility]
[2017-02-20 12:00] VITALS: BP 124/64
[2017-02-20] MEDS ORDERED: MAGNESIUM OXIDE (MAG-OX)400 MG TAB PO SCH (12:00)
--- NOTE | 2017-02-20 13:19 | Consultation ---
History of Present Illness History of Present Illness Patient Consulted On(catarina/time) 02/20/17 13:18 Date of Admission Ayleen Nicole is a 76-year-old lady known history of locally advanced/recurrent endometrial cancer which has been treated as described below in past history. Her last chemotherapy was administered more than one year ago , in January 2016. She has lost 34 pounds in the past 12 months. She has had a CT scan done of her abdomen and pelvis done on 02/12/17 which showed no significant abnormalities and is reported below. No definite evidence of recurrent disease was identified on the study. She continues to have recurrent rashes involving all 4 extremities and has been followed by dermatology for this. She was scheduled for follow-up visit with ar on yesterday when her daughter states she was in severe pain from the time she arrived to transport her to the clinic visit. The pain in her chest was so severe that they were delivered to the emergency room for further evaluation. She is feeling much better today. CT of the T-spine has been reviewed and EGD has been done which showed Jane esophagitis. The biopsies done during the EGD are pending. Past medical history is significant for: 1. Recurrent endometrial cancer treated with local radiation. Initial diagnosis was 2004. a. Patient received 5400 cGy initiated on 06/07/15 and completed . b. Weekly paclitaxel and carboplatin 3 of 4 weeks then off 1 week initiated on 10/18/2015 and 4 cycles completed on 02/07/16. 2. Patient states she had a colonoscopy done in an outside hospital 3 years ago and was told everything was "clean as a whistle". 3. Incontinence /Recurrent UTIs--Denies recent UTI and incontinence is much improved with use of Kegel exercises and Vesicare. 4. Type II diabetes-Longstanding with multiple sequelae 5. History of recurrent skin rashes involving all 4 extremities-- Continue follow-up at [facility] dermatology 6. Legal blindness/diabetic retinopathy 7. Comorbidities including hypertension, obesity, increasing debility 8. Weight loss--patient has lost 34 pounds in the last 1 year and BMI has fallen from 41 to currently level of 34(last clinic visit) to 36 (this admission ). Allergies and Home Medications Allergies Coded Allergies: miconazole (Verified Allergy, Intermediate, RASH, 02/20/17) rash/hives ampicillin (Unverified Allergy, Unknown, 12/23/06) lanolin (Unverified Allergy, Unknown, 12/23/06) metformin (Unverified Allergy, Unknown, 12/23/06) Tlpxowr-Cau-Xld Reductase Inhibitor (Unverified Adverse Reaction, Unknown , 12/17/14) adhesive tape (Unverified Adverse Reaction, Unknown, 12/23/06) latex (Unverified Adverse Reaction, Unknown, 12/17/14) Home Medications Amitriptyline HCl 25 Mg Tablet, 25 MG PO HS, (Reported) Carboxymethylcellulose Sodium 15 Ml Drops, 1-2 DROPS OU QID PRN for DRY EYES, ( Reported) Citalopram Hydrobromide 10 Mg Tablet, 10 MG PO HS, (Reported) Hydroxyzine HCl 25 Mg Tablet, 25 MG PO Q8H PRN for ITCHING, (Reported) Ibuprofen 200 Mg Tablet, 400 MG PO Q8H PRN for PAIN-MILD, (Reported) TAKES 2 (200MG) TABLETS Insulin Glargine,Hum.rec.anlog 100 Unit/1 Ml Vial, 10 UNITS SC HS, (Reported) Lisinopril 20 Mg Tablet, 20 MG PO DAILY, (Reported) Magnesium Oxide 400 Mg Capsule, 400 MG PO 1200, (Reported) Metformin HCl 500 Mg Tab.er.24h, 500 MG PO DAILY, (Reported) Ranitidine HCl 150 Mg Tablet, 150 MG PO DAILY PRN for HEARTBURN, (Reported) Solifenacin Succinate 5 Mg Tablet, 5 MG PO DAILY, (Reported) Trimethoprim 100 Mg Tablet, 100 MG PO HS, (Reported) Vit C/Vit E/Lutein/Min/[place]-3 1 Each Capsule, 1 CAP PO DAILY, (Reported) [Trubiotic] , 1 TAB PO 1200, (Reported) Past Otwnndt-Qfvuvv-Nwroso Hx Patient Social History Alcohol Use: Denies Use Recreational Drug Use: No Smoking Status: Never a Smoker Recent Foreign Travel: No Contact w/Someone Who Travel: No Recent Infectious Disease Expo: No Physical Abuse Screen: No Sexual Abuse: No Immunizations Up To Date Date of Pneumonia Vaccine: Oct 02, 2015 Date of Influenza Vaccine: Jul 15, 2015 Seasonal Allergies Seasonal Allergies: No Surgeries HX Surgeries: Yes Surgeries: Abdominal, Section, Eye Surgery, Gallbladder, Hysterectomy , Oophorectomy, Orthopedic Respiratory Hx Respiratory Disorders: No Cardiovascular Hx Cardiac Disorders: Yes Cardiac Disorders: Chronic Edema/Swelling Neurological Hx Neurological Disorders: Yes Neurological Disorders: Neuropathy Reproductive System Hx Reproductive Disorders: No Genitourinary Hx Genitourinary Disorders: Yes Genitourinary Disorders: Renal Failure Gastrointestinal Hx Gastrointestinal Disorders: No Musculoskeletal Hx Musculoskeletal Disorders: Yes Musculoskeletal Disorders: Degenerate Disk Disease, Arthritis, Chronic Back Pain Endocrine Hx Endocrine Disorders: Yes (Type II, obesity) Endocrine Disorders: Diabetes, Insulin dep HEENT HX ENT Disorders: Yes HEENT Disorders: Macular Degeneration Loss of Vision: Bilateral Cancer Hx Cancer: Yes Cancer: Uterine, Vaginal Psychosocial Hx Psychiatric Problems: No Behavioral Health Disorders: Sleep Difficulties Integumentary HX Skin/Integumentary Disorder: No Skin/Integumentary Disorders: Pruritis, Recent Skin Changes Blood Transfusions Hx Blood Disorders: No ("I have thin blood") Adverse Reaction to a Blood Tr: No Family Medical History Family Medial History: FH: lung cancer G8 SISTER FH: stomach cancer G8 BROTHER FH: uterine cancer 19 MOTHER Myocardial infarction 19 FATHER Neoplasm SON Review of Systems-General Time Seen by Provider: 12:15 Constitutional: malaise, weight loss EENTM: vision loss Gastrointestinal: heartburn Genitourinary: frequency, incontinence Skin: rash Physical Exam-General Problems Physical Exam Vital Signs Vital Sign - Last 12Hours 02/19/17 14:02 Temp 98.2 Pulse 82 Resp 18 B/P (MAP) 158/88 Pulse Ox 99 O2 Delivery Room Air Capillary Refill : Less Than 3 Seconds General Appearance: obese HEENT: PERRL/EOMI Neck: supple Respiratory: lungs clear Cardiovascular: regular rate, rhythm Gastrointestinal: normal bowel sounds, other (mild tenderness epigastric area) Rectal: deferred Back: no CVA tenderness Extremities: swelling Neurologic/Psychiatric: oriented x 3, abnormal gait Skin: rash (scarring and rash all 4 extremities;) Comments Laboratory Tests 02/19/17 14:24 RADIOLOGY REVIEW: CAT scan of the abdomen and pelvis done 02/12/17: FINDINGS: The lung bases demonstrate no significant abnormality. The liver, the spleen, the pancreas, and the adrenal glands appear unremarkable. The kidneys demonstrate no stones or hydronephrosis. The abdominal aorta is normal in caliber. No para-aortic significantly enlarged lymph node is seen. There is slight distention of the urinary bladder with minimal wall thickening. No focal lesion is identified. There is oral contrast seen within the colon. Minimal nonspecific thickening in the sigmoid colon is seen with multiple diverticula noted. No diverticulitis. No bowel obstruction. There is overall moderate amount of fecal material in the colon. There is no significant free fluid or fluid collection in the abdomen or pelvis. Stranding around the rectum and presacral region is similar to prior exam suggestive of scarring. Evidence of prior hysterectomy is seen. There is a fat-containing periumbilical hernia similar to the prior study. The osseous structures demonstrate prominent degenerative changes and mild left convexity scoliosis. Bilateral sacroiliac joints degenerative change is seen. IMPRESSION: 1. Minimal nonspecific thickening in the sigmoid colon with diverticulosis is seen. No evidence of diverticulitis. There is suggestion of perirectal and presacral scarring similar to previous study. 2. Stable fat- containing periumbilical hernia. CT scan of the T-spine done in 02/19/17: No fracture is seen. There is fluid distention seen within the distal esophagus, presumably related to reflux, with thickening in the distal esophagus suggestive of esophagitis. Correlate clinically and consider endoscopic evaluation. IMPRESSION: Degenerative changes. No fracture is seen. Assessment/Plan Assessment/Plan Admission Diagnosis/Plan 1. Epigastric pain/dysphagia-EGD done and shows fungal esophagitis a. Last chemotherapy was more than one year ago. Last radiation to her pelvis received August 2015. Unlikely to be related to chemotherapy. 2. Dehydration/elevated creatinine 1.47 3. Long-standing diabetes 4. History of recurrent skin rashes likely also related to diabetes--such as necrobiosis lipoidica diabeticorum vs other diabetes related skin conditions 5. Weight Loss of 34 lbs in last 8-12 months with BMI falling from morbid obesity to current level of 34-36. 6. Recurrent endometrial cancer-initial diagnosis in 2004; tumor recurrence noted 2014. Last chemotherapy treatment received January 2016 more than one year ago; 7. Comorbidities of history recurrent UTIs, legal blindness, obesity Clinical Quality Measures DVT/VTE Risk/Contraindication: Risk Factor Score Per Nursin RFS Level Per Nursing on Admit: 4+=Very High FABIÁN POSADA MD Feb 20, 2017 13:18
[2017-02-20] MEDS ORDERED: PATIENT MAY USE OWN MEDS, ALL MC SCH (13:45)
[2017-02-20] MEDS ORDERED: diphenhydrAMINE 50 MG/ML INJ (BENADRYL) IV PRN (14:15)
[2017-02-20] MEDS ORDERED: HYDROXYZINE 25 MG PO PRN (14:45)
[2017-02-20] MEDS ORDERED: THERA TEARS OU PRN (14:45)
[2017-02-20] MEDS: MAGNESIUM OXIDE (MAG-OX)400 MG TAB PO SCH (15:07)
[2017-02-20] MEDS: TRUBIOTIC PO SCH (15:07)
[2017-02-20 16:40] VITALS: BP 173/72
[2017-02-20 19:50] VITALS: BP 142/61
[2017-02-20] MEDS ORDERED: AMITRIPTYLINE 25 MG (ELAVIL) TAB PO SCH (21:00)
[2017-02-20] MEDS ORDERED: inSUlin DETERMIR 1 UNIT/0.01 ML (LEVEMIR) CHARGE PER UNIT SQ SCH (21:00)
[2017-02-20] MEDS ORDERED: TRIMETHOPRIM 100 MG TAB (PROLOPRIM) PO SCH (21:00)
[2017-02-21] VITALS: BP 146/63
[2017-02-21] MEDS: NS IV 1000 ML 1,000 ML IV SCH ×2 (03:06→10:10)
[2017-02-21] MEDS: NS IV 500 ML 500 ML IV SCH (03:45)
[2017-02-21 05:42] LABS: BASOPHILS % (AUTO) 1 % (0-10); EOSINOPHILS # (AUTO) 0.4 10^3/uL (0.0-0.3); EOSINOPHILS % (AUTO) 10 % (0-10); LYMPHOCYTES # (AUTO) 0.5 X 10^3 (1.0-4.0); LYMPHOCYTES % (AUTO) 13 % (12-44); MEAN CORPUSCULAR HEMOGLOBIN 32 PG (25-34); MEAN CORPUSCULAR HGB CONC 32 G/DL (32-36); MEAN CORPUSCULAR VOLUME 101 FL (80-99); MEAN PLATELET VOLUME 8.6 FL (7.4-10.4); MONOCYTES # (AUTO) 0.5 X 10^3 (0.0-1.0); MONOCYTES % (AUTO) 11 % (0-12); NEUTROPHILS # (AUTO) 2.6 X 10^3 (1.8-7.8); NEUTROPHILS % (AUTO) 65 % (42-75); PLATELET COUNT 214 10^3/uL (130-400); RED BLOOD COUNT 2.38 10^6/uL (4.35-5.85); RED CELL DISTRIBUTION WIDTH 13.6 % (10.0-14.5)
[2017-02-21 06:25] LABS: ALBUMIN 2.9 G/DL (3.2-4.5); BILIRUBIN,TOTAL 0.2 MG/DL (0.1-1.0); CALCIUM 8.1 MG/DL (8.5-10.1); CREATININE SERUM 0.92 MG/DL (0.60-1.30); POTASSIUM 4.2 MMOL/L (3.6-5.0); TOTAL PROTEIN 4.8 G/DL (6.4-8.2)
[2017-02-21] MEDS: inSUlin ASPART (NovoLOG) 1 UNIT/0.01 ML (CHARGE PER UNIT) SC SCH ×2 (06:34→11:33)
[2017-02-21 08:00] VITALS: BP 147/66
[2017-02-21] MEDS: PANTOPRAZOLE 40 MG/10 ML (PROTONIX) VIAL IV SCH (08:19)
[2017-02-21] MEDS ORDERED: VITAMIN E PO SCH (09:00)
[2017-02-21] MEDS ORDERED: lisINopril 20 MG (ZESTRIL) TAB PO SCH (09:00)
[2017-02-21] MEDS ORDERED: FLUCONAZOLE 200 MG/100 ML 100 ML IV SCH (09:00)
[2017-02-21] MEDS ORDERED: VITAMIN C PO SCH (09:00)
[2017-02-21] MEDS ORDERED: SOLIFENACIN 5 MG PO SCH (09:00)
[2017-02-21] MEDS ORDERED: HYDR-3812 PO (12:56)
[2017-02-21] MEDS ORDERED: FLUC200T PO (12:56)
[2017-02-21] MEDS ORDERED: PANT40VI PO (12:56)
[2017-02-21] MEDS: TRUBIOTIC PO SCH (13:11)
[2017-02-21] MEDS: MAGNESIUM OXIDE (MAG-OX)400 MG TAB PO SCH (13:11)
[2017-02-21] MEDS ORDERED: PANT40TA2 PO (14:21)
[2017-02-21 14:30] VITALS: BP 147/66
== END 2017-02-21 14:45 | disposition home or self-care (01) ==
LOC: EDUNIT# 14:02 → ER 14:04 → 4TH 16:20 → UNDOADMOB 16:20 → 4TH 17:25
PROVIDERS: ADMIT Internal Medicine; ATTEND Internal Medicine
DX: K20.8 Other esophagitis (principal); M54.14 Radiculopathy, thoracic region; R07.9 Chest pain, unspecified; C54.1 Malignant neoplasm of endometrium; L29.9 Pruritus, unspecified; E86.0 Dehydration; N28.9 Disorder of kidney and ureter, unspecified; E11.40 Type 2 diabetes mellitus with diabetic neuropathy, unspecified; E11.319 Type 2 diabetes mellitus with unspecified diabetic retinopathy without macular edema; R63.4 Abnormal weight loss; N32.81 Overactive bladder; E66.9 Obesity, unspecified; K44.9 Diaphragmatic hernia without obstruction or gangrene; Z68.36 Body mass index [BMI] 36.0-36.9, adult; Z79.4 Long term (current) use of insulin; Z87.440 Personal history of urinary (tract) infections; Z92.21 Personal history of antineoplastic chemotherapy; Z92.3 Personal history of irradiation; H54.8 Legal blindness, as defined in USA
CPT/HCPCS: 36415; 72128; 80053; 82962; 85025; 87101; 99284

== ENCOUNTER 2017-03-25 12:40 | Outpatient (RCR) | payer MEDICARE, OTHER ==
[~2017-03-25 12:40] MED LIST changes: +AMIT25TA9 PO; +CARB15DR58 OU; +CITA10TA7 PO; +FLUC200T PO; +HYDR-3812 PO; +HYDR-700 PO; +MAGN400C PO; +METF500T8 PO; +NF-SOLIF5T PO; +PANT40TA2 PO; +PANT40VI PO; +RANI150T15 PO; +TRIM100T PO; +TRUBIOTIC PO; +VIT1CAPS9 PO
== END 2017-03-25 16:00 | disposition home or self-care (01) ==
LOC: WOUNDCARE 12:40
PROVIDERS: ATTEND Surgery
DX: L95.8 Other vasculitis limited to the skin (principal); L97.211 Non-pressure chronic ulcer of right calf limited to breakdown of skin; I87.333 Chronic venous hypertension (idiopathic) with ulcer and inflammation of bilateral lower extremity; L98.491 Non-pressure chronic ulcer of skin of other sites limited to breakdown of skin; E11.622 Type 2 diabetes mellitus with other skin ulcer
CPT/HCPCS: 99213; 99215

== ENCOUNTER 2017-04-09 13:34 | Outpatient (RCR) | payer MEDICARE, OTHER ==
[2017-02-12 14:42] LABS: BASOPHILS % (AUTO) 1 % (0-10); EOSINOPHILS # (AUTO) 0.3 10^3/uL (0.0-0.3); EOSINOPHILS % (AUTO) 5 % (0-10); LYMPHOCYTES # (AUTO) 0.5 X 10^3 (1.0-4.0); LYMPHOCYTES % (AUTO) 7 % (12-44); MEAN CORPUSCULAR HEMOGLOBIN 33 PG (25-34); MEAN CORPUSCULAR HGB CONC 33 G/DL (32-36); MEAN CORPUSCULAR VOLUME 100 FL (80-99); MEAN PLATELET VOLUME 8.5 FL (7.4-10.4); MONOCYTES # (AUTO) 0.5 X 10^3 (0.0-1.0); MONOCYTES % (AUTO) 7 % (0-12); NEUTROPHILS # (AUTO) 5.6 X 10^3 (1.8-7.8); NEUTROPHILS % (AUTO) 81 % (42-75); PLATELET COUNT 287 10^3/uL (130-400); RED BLOOD COUNT 2.72 10^6/uL (4.35-5.85); RED CELL DISTRIBUTION WIDTH 13.9 % (10.0-14.5); WHITE BLOOD COUNT 6.9 10^3/uL (4.3-11.0)
[2017-02-12 15:21] LABS: ALBUMIN 3.3 G/DL (3.2-4.5); BILIRUBIN,TOTAL 0.3 MG/DL (0.1-1.0); CALCIUM 8.5 MG/DL (8.5-10.1); CREATININE SERUM 1.63 MG/DL (0.60-1.30); POTASSIUM 4.8 MMOL/L (3.6-5.0); TOTAL PROTEIN 5.6 G/DL (6.4-8.2)
--- NOTE | 2017-02-12 16:12 | Diagnostic Imaging Report ---
PROCEDURE: CT abdomen and pelvis without contrast. TECHNIQUE: Multiple contiguous axial images were obtained through the abdomen and pelvis without the use of intravenous contrast. INDICATION: Uterine cancer. COMPARISON: 02/05/2017. FINDINGS: The lung bases demonstrate no significant abnormality. The liver, the spleen, the pancreas, and the adrenal glands appear unremarkable. The kidneys demonstrate no stones or hydronephrosis. The abdominal aorta is normal in caliber. No para-aortic significantly enlarged lymph node is seen. There is slight distention of the urinary bladder with minimal wall thickening. No focal lesion is identified. There is oral contrast seen within the colon. Minimal nonspecific thickening in the sigmoid colon is seen with multiple diverticula noted. No diverticulitis. No bowel obstruction. There is overall moderate amount of fecal material in the colon. There is no significant free fluid or fluid collection in the abdomen or pelvis. Stranding around the rectum and presacral region is similar to prior exam suggestive of scarring. Evidence of prior hysterectomy is seen. There is a fat-containing periumbilical hernia similar to the prior study. The osseous structures demonstrate prominent degenerative changes and mild left convexity scoliosis. Bilateral sacroiliac joints degenerative change is seen. IMPRESSION: 1. Minimal nonspecific thickening in the sigmoid colon with diverticulosis is seen. No evidence of diverticulitis. There is suggestion of perirectal and presacral scarring similar to previous study. 2. Stable fat-containing periumbilical hernia. Dictated by: Dictated on workstation # [id number]
[2017-04-02 13:09] LABS: BASOPHILS % (AUTO) 1 % (0-10); EOSINOPHILS # (AUTO) 0.3 10^3/uL (0.0-0.3); EOSINOPHILS % (AUTO) 7 % (0-10); LYMPHOCYTES # (AUTO) 0.5 X 10^3 (1.0-4.0); LYMPHOCYTES % (AUTO) 13 % (12-44); MEAN CORPUSCULAR HEMOGLOBIN 30 PG (25-34); MEAN CORPUSCULAR HGB CONC 31 G/DL (32-36); MEAN CORPUSCULAR VOLUME 96 FL (80-99); MEAN PLATELET VOLUME 8.5 FL (7.4-10.4); MONOCYTES # (AUTO) 0.5 X 10^3 (0.0-1.0); MONOCYTES % (AUTO) 11 % (0-12); NEUTROPHILS # (AUTO) 2.9 X 10^3 (1.8-7.8); NEUTROPHILS % (AUTO) 69 % (42-75); PLATELET COUNT 250 10^3/uL (130-400); RED BLOOD COUNT 2.83 10^6/uL (4.35-5.85); RED CELL DISTRIBUTION WIDTH 13.6 % (10.0-14.5); RETICULOCYTE % 0.52 % (0.50-2.40); WHITE BLOOD COUNT 4.2 10^3/uL (4.3-11.0)
[2017-04-02 13:34] LABS: ALBUMIN 3.5 GM/DL (3.2-4.5); BILIRUBIN,TOTAL 0.3 MG/DL (0.1-1.0); CALCIUM 8.9 MG/DL (8.5-10.1); CREATININE SERUM 1.37 MG/DL (0.60-1.30); POTASSIUM 4.9 MMOL/L (3.6-5.0); TOTAL PROTEIN 6.3 GM/DL (6.4-8.2)
[2017-04-02 16:27] LABS: %SAT TOTAL IRON BINDING CAPIC 10 % (15-50); TIBC 334 ug/dL (280-380)
[2017-04-03 08:01] LABS: FOLIC ACID >24.0 ng/mL (1.5-24.0); UIBC 302 ug/dL
[2017-04-09] MEDS ORDERED: FERRIC CARBOXYMALTOSE (CANCER) 750 MG in NS (IVPB) 250 ML IV SCH (15:15)
== END 2017-04-12 | disposition home or self-care (01) ==
LOC: ONC 13:34
PROVIDERS: ATTEND Internal Medicine Hematology & Oncology
DX: C54.1 Malignant neoplasm of endometrium (principal); D63.0 Anemia in neoplastic disease; D50.0 Iron deficiency anemia secondary to blood loss (chronic); E11.319 Type 2 diabetes mellitus with unspecified diabetic retinopathy without macular edema; H54.8 Legal blindness, as defined in USA; I10 Essential (primary) hypertension; E66.01 Morbid (severe) obesity due to excess calories; Z68.41 Body mass index [BMI] 40.0-44.9, adult; R82.99 Other abnormal findings in urine; Z79.4 Long term (current) use of insulin; Z79.899 Other long term (current) drug therapy
CPT/HCPCS: 36591; 74176; 80053; 82607; 82728; 82746; 83540; 85025; 85045; 86304; 96365; 96372; 99213

== ENCOUNTER → 2017-04-16 | Outpatient (CLI) | payer MEDICARE, OTHER ==
[~2017-04-16] MED LIST changes: +CATHETER FLUSH 10 ML SYR IV PRN; +IOHEXOL 350 MG/ML 100 ML (OMNIPAQUE 350) VIAL IV ONE; +NS 100 ML (IVPB) BAG IV ONE
--- NOTE | 2017-04-16 13:32 | Diagnostic Imaging Report ---
PROCEDURE: CT chest with contrast only. TECHNIQUE: Multiple contiguous axial images were obtained through the chest after administration of intravenous contrast. INDICATION: Unexplained abnormal weight loss, dyspnea. Additional dysphagia. COMPARISON: 10/10/2015. DISCUSSION: Exam is slightly degraded due to patient respiratory motion. Calcified granulomas again noted within the right middle lobe. 3 mm pleural-based nodule within the anterior right mid lung, image #27, stable, likely benign. Suspect focal high-grade stenosis of the mid left subclavian vein, likely related to left chest wall [id number]. Normal heart size. No focal consolidation, pleural fluid, or pneumothorax. Small hiatal hernia is stable. The thoracic aorta is normal in caliber and configuration. The pulmonary arteries are not dilated. The visualized upper abdomen is unremarkable. No acute osseous abnormality. IMPRESSION: 1. Chronic changes of benign granulomatous disease. 2. 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 3. Small hiatal hernia, stable. Dictated by: Dictated on workstation # [id number]
== END ==
LOC: RAD 11:17
PROVIDERS: ATTEND Internal Medicine Hematology & Oncology
DX: J84.10 Pulmonary fibrosis, unspecified (principal); K44.9 Diaphragmatic hernia without obstruction or gangrene; R63.4 Abnormal weight loss; Z12.31 Encounter for screening mammogram for malignant neoplasm of breast
CPT/HCPCS: 71260; 77067

== ENCOUNTER 2017-04-21 13:19 | Outpatient (CLI) | payer MEDICARE, OTHER ==
[~2017-04-21] VITALS: Ht 149.9 cm; Wt 76.2 kg
[~2017-04-21 13:19] MED LIST changes: -CATHETER FLUSH 10 ML SYR IV PRN; -IOHEXOL 350 MG/ML 100 ML (OMNIPAQUE 350) VIAL IV ONE; -NS 100 ML (IVPB) BAG IV ONE
== END 2017-04-21 13:27 ==
LOC: PREOP 13:19
PROVIDERS: ATTEND Surgery
DX: Z01.818 Encounter for other preprocedural examination (principal); R19.5 Other fecal abnormalities; D64.9 Anemia, unspecified

== ENCOUNTER 2017-04-22 11:00 | Day surgery (SDC) | payer MEDICARE, OTHER ==
[2017-04-22 11:05] VITALS: BP 156/75
[2017-04-22] MEDS ORDERED: NS IV 500 ML 500 ML IV PRN (11:05)
--- OUTSIDE RECORDS SUMMARY | 2017-04-22 11:05 | XMS REPORT | Clinical Summary ---
Author Author [facility] Organization [facility] Address Unknown Phone Unavailable Care Team Providers [facility] [employer] Name Role Phone PCP Unavailable Source Comments Some departments are not documenting in the electronic medical record. If you do not see the information that you expected, contact Release of Information in the Health Information Management department at [phone] for further assistance in locating additional records.[facility] Allergies Active Allergy Reactions Severity Noted Date Comments Sulfa (Sulfonamide SHORTNESS OF BREATH High 12/26/2016 Antibiotics) Amoxicillin RASH Medium 05/07/2015 Latex RASH, ITCHING Medium 05/07/2015 Chocolate HEADACHE Low 05/07/2015 Lanolin SEE COMMENTS Low 05/07/2015 Patient experiences swelling and hot skin to the touch. Current Medications Prescription Sig. Disp. Refills Start End Date Status Date lisinopril (PRINIVIL; Take 20 mg by mouth Active ZESTRIL) 20 mg tablet daily. ranitidine(+) (ZANTAC) Take 150 mg by mouth Active 150 mg tablet twice daily. ANTIOX Take by mouth. Active #11/OM3/DHA/EPA/LUT/CLAUDIA (OCUVITE ADULT 50+ PO) MULTIVIT-MIN/FA/LYCOPENE/ Take by mouth daily. Active LUT (SENTRY SENIOR PO) IBUPROFEN PO Take by mouth daily. Active artificial Apply 1 Drop to both eyes Active tears/hypromellose daily. Two drops in each (ISOPTO TEARS) 0.5 % eye daily. ophthalmic solution INSULIN Inject 34 Units into Active GLARGINE,HUM.REC.ANLOG area(s) as directed (LANTUS SC) daily. Amitriptyline-Chlordiazep Take by mouth. Active oxide 25-10 mg tab trimethoprim (TRIMPEX) Take 100 mg by mouth Active 100 mg tablet twice daily. FERROUS SULFATE (IRON PO) Take by mouth. Active metFORMIN-XR(+) Take 500 mg by mouth Active (GLUCOPHAGE XR) 500 mg daily with dinner. extended release tablet hydroCHLOROthiazide Take 25 mg by mouth every Active (HYDRODIURIL) 25 mg morning. tablet Active Problems Problem Noted Date Adenocarcinoma of the endometrium/uterus (HCC) 05/09/2015 Overview: Referring Physician: Dr. Cirilo Salinas PCP: Blanche Jaramillo APRN Wound care: Dr. Eitan Herreraarp 74 yo with endometrial adenocarcinoma FIGO grade 2 1. Patient has a history of hysterectomy 05/15/[address] Mario Michael in [place], [place] with a diagnosis of endometrial FIGO grade 1. Per pt., was told that they got it all and did not need further tx. Pt. has not had annual pelvic examinations or f/u since that time. 2. Pt. was referred from PCP Dr. Jaramillo to [employer] Dr. Salinas in [place], [place] on 04/18/15 for post-menopausal bleeding beginning [...] her CT Scan, which was done in [place], I suspect the areas of interest are: [...] her home-although she has used the hospital [facility] She is anxious that she cannot/will not tolerate any therapy, became very upset at the thought of traveling from her home in [place] to the [facility], radiation/chemotherapy. I also discussed her options should she decline any therapy-would recommend hospice. Consideration for epidural pain pump in the event of progressive pain. I have contacted the [facility] [place] and she has been scheduled with one of the medical oncologists as well as with Dr. Field, the radiation oncologist. If her tumor is ER+, after radiation, consideration for antiestrogen therapy, such as megace, AI, could be considered. Family History Relation Name Status Comments Social History Tobacco Use Types Packs/Day Years Used Date Never Smoker Sex Assigned at Date Recorded Not on file Last Filed Vital Signs Vital Sign Reading Time Taken Blood Pressure - - Pulse 66 05/07/2015 1:24 PM CDT Temperature 36.7 C (98.1 F) 05/07/2015 1:24 PM CDT Respiratory Rate - - Oxygen Saturation 97% 05/07/2015 1:24 PM CDT Inhaled Oxygen - - Concentration Weight 83 kg (183 lb) 12/26/2016 1:39 PM CDT Height 154.9 cm (5' 1") 12/26/2016 1:39 PM CDT Body Mass Index 34.58 12/26/2016 1:39 PM CDT Plan of Treatment Health Maintenance Due Date Last Done Comments PHYSICAL (COMPREHENSIVE) 1945 EXAM PERTUSSIS VACCINE 1949 TETANUS VACCINE 1955 SHINGLES VACCINE 1998 OSTEOPOROSIS SCREENING 2003 PREVNAR/PNEUMOVAX (#1) 2003 INFLUENZA VACCINE 05/15/2017 Results Not on filefrom Last 3 Months
[2017-04-22] MEDS ORDERED: NS IV 500 ML 500 ML ONE (11:46)
[2017-04-22] MEDS ORDERED: ONDANSETRON 4 MG/2 ML (SDV) Z0FRAN IV PRN (12:30)
[2017-04-22] MEDS ORDERED: ACETAMINOPHEN 325 MG TABLET/CAPLET (TYLENOL) PO PRN (12:30)
[2017-04-22] MEDS ORDERED: morphine INJ 10 MG/ML 1ML (SYR OR VIAL) IV PRN (12:30)
--- NOTE | 2017-04-22 12:30 | Progress Note-Pre Operative ---
Pre-Operative Progress Note H&P Reviewed The H&P was reviewed, patient examined and no changes noted. Date Seen by Provider: Apr 22, 2017 Time Seen by Provider: 11:00 Date H&P Reviewed: Apr 22, 2017 Time H&P Reviewed: 11:00 Pre-Operative Diagnosis: anemia, GERD TELMA GRIER MD Apr 22, 2017 12:30 pm
--- NOTE | 2017-04-22 12:30 | Conscious Sedation/ASA ---
Conscious Sedation Pre-Proced Time Reviewed: 11:00 ASA Class: 2 Airway Mallampati Classification: ([place] appropriate class) I. II. III, IV Lungs Heart ASA score ASA 1: a normal healthy patient ASA 2: a patient with a mild systemic disease (mid diabetes, controlled hypertension, obesity ASA 3: a patient with a severe systemic disease that limits activity (angina , COPD, prior Myocardial infarction) ASA 4: a patient with an incapacitating disease that is a constant threat to life (CHF, renal failure) ASA 5: a moribund patient not expected to survive 24 hrs. (ruptured aneurysm) ASA 6: a declared brain patient whose organs are being harvested. For emergent operations, add the letter E after the classification Grade 2 Sedation Plan: Analgesia, Amnesia, Plan communicated to team members, Discussed options with patient/fam, Discussed risks with patient/fam Note The patient is an appropriate candidate to undergo the planned procedure, sedation, and anesthesia. The patient immediately re-assessed prior to indication. TELMA GRIER MD Apr 22, 2017 12:30 pm
[2017-04-22] MEDS ORDERED: LIDOCAINE JELLY 2% (XYLOCAINE) 5 ML TUBE ONE (13:37)
[2017-04-22] MEDS ORDERED: fentaNYL INJECTION 100 MCG/2 ML AMP ONE ×2 (13:37→14:37)
[2017-04-22] MEDS ORDERED: MIDAZOLAM 2 MG/2 ML (VERSED) VIAL ONE ×3 (13:37)
[2017-04-22] MEDS: fentaNYL INJECTION 100 MCG/2 ML AMP IVP PRN ×4 (14:01→14:50)
[2017-04-22] MEDS: MIDAZOLAM 2 MG/2 ML (VERSED) VIAL IVP PRN ×3 (14:05→14:15)
[2017-04-22] MEDS ORDERED: LIDOCAINE JELLY 2% (XYLOCAINE) 5 ML TUBE TOP ONE (14:45)
[2017-04-22 15:20] VITALS: BP 132/72
--- NOTE | 2017-04-22 15:43 | Progress Note-Post Operative ---
Post-Operative Progess Note Surgeon (s)/Fraud Analyst (s) Surgeon TELMA GRIER MD Fraud Analyst: none Pre-Operative Diagnosis anemia, GERD Post-Operative Diagnosis sigmoid polyp, sigmoid diverticulosis. Procedure & Operative Findings Date of Procedure 04/22/17 Procedure Performed/Findings Sigmoidoscopy with bx Anesthesia Type CS Estimated Blood Loss Estimated blood loss (mL): minimal Specimens/Packing Specimens Removed sigmoid polyp TELMA GRIER MD Apr 22, 2017 3:43 pm
--- NOTE | 2017-04-22 15:45 | Discharge Inst-Surgical ---
D/C Lap Instructions-MARVEL Will call to schedule rectal contrast CT colography Activity as tolerated High Fiber Diet 25g or more per day Avoid Alcohol, Caffeine, Spicy [place] and Acid foods. Drink 64 fluid oz or more of fluids per day. Symptoms to Report: Fever over 101 degree F, Nausea/Vomiting If any problems/questions: Contact your physician or go to Emergency Room TELMA GRIER MD Apr 22, 2017 3:45 pm
[2017-04-22 15:49] VITALS: BP 132/72
--- NOTE | 2017-04-23 04:34 | OPERATIVE REPORT ---
DATE OF SERVICE: 04/22/2017 ATTENDING PHYSICIAN: Dr. Jaramillo. PREOPERATIVE DIAGNOSES: History of anemia and endometrial cancer as well as sigmoid colonic thickening identified on CT scan. POSTOPERATIVE DIAGNOSES: Redundant sigmoid colon with a sigmoid colonic polyp due to the tortuosity of the sigmoid colon as well as resistance we did not proceed further from that point. A biopsy was taken of the polyp. PROCEDURE: Sigmoidoscopy and polypectomy. SURGEON: Dr. Grier. ANESTHESIA: Conscious sedation. ESTIMATED BLOOD LOSS: Minimal. FINDINGS: Chronic stage II external and internal hemorrhoids, redundant sigmoid colon with diverticulosis with no signs of diverticulitis, a small polyp of the sigmoid colon. DISPOSITION: The patient tolerated the procedure well. INDICATIONS: The patient is a 76-year-old female with history of endometrial cancer. She had a CT scan performed which showed nonspecific thickening of the sigmoid colon as well as multiple diverticula. There was also stranding around the rectum and presacral region consistent with scarring from her previous hysterectomy as well as radiation. She has had a colonoscopy before in the past which was 6 years ago. She did report that she did notice an episode of a darker stool as well as anemia on laboratory work. She has had a change in bowel habits since starting radiation therapy in August 2015. DESCRIPTION OF PROCEDURE: The patient was brought to the endoscopy suite, laid in the left lateral decubitus position. After adequate IV pain and sedative medications and conscious sedation anesthesia, a digital rectal examination was performed. Chronic stage II external and internal hemorrhoids were identified which were not actually edematous or inflamed and no bleeding. Normal sphincter tone was felt and there were no palpable masses. The endoscope was then intubated to the anus and rectum and gently insufflated. The anal sphincters appeared to be patulous because we could not retain air for very long period. The endoscope was advanced to the valves of [place] of the rectum with no polyps or any neoplasms identified. Through the sigmoid colon, a few diverticulosis identified. A small polyp was also identified at approximately 2 mm in size which was biopsied and destroyed using forceps. Multiple attempts were made to go past the sigmoid colon; however, due to her previous scarring and abdominal surgeries, there was a substantial amount of resistance on the endoscope and it was decided to stop the procedure at this point in risk of perforation. The endoscope was then slowly withdrawn taking a second look and suctioning residual air with no additional findings. The patient tolerated the procedure well. We will await the biopsy results; however, due to the findings and inability to pass the colonoscope, we will talk with interventional radiology to see if they do a contrast colorragraphy to identify the nature of the lesion. Job ID: [id number] DocumentID: [id number] Dictated Date: 04/22/2017 15:15:15 Merchandise Appraiser Date: 04/23/2017 01:40:47 Dictated By: TELMA GRIER MD MTDD
== END 2017-04-22 16:00 | disposition home or self-care (01) ==
LOC: ENDO 11:00
PROVIDERS: ATTEND Surgery
DX: K63.5 Polyp of colon (principal); K64.1 Second degree hemorrhoids; K57.30 Diverticulosis of large intestine without perforation or abscess without bleeding; Z85.44 Personal history of malignant neoplasm of other female genital organs; Z92.3 Personal history of irradiation; E11.40 Type 2 diabetes mellitus with diabetic neuropathy, unspecified; I10 Essential (primary) hypertension; Z79.899 Other long term (current) drug therapy
CPT/HCPCS: 88305

== ENCOUNTER → 2017-04-29 | Outpatient (CLI) | payer MEDICARE, OTHER ==
[~2017-04-29] MED LIST changes: +DIATRIZOATE MEGLUM/SODIUM 37% 120 ML (GASTROGRAFIN) PO ONE
[2017-04-29 11:00] LABS: CREATININE SERUM 1.42 MG/DL (0.60-1.30)
--- NOTE | 2017-04-29 14:06 | Diagnostic Imaging Report ---
PROCEDURE: CT abdomen and pelvis without contrast. TECHNIQUE: Multiple contiguous axial images were obtained through the abdomen and pelvis without the use of intravenous contrast. However, rectal contrast was administered. INDICATION: Sigmoid mass, diverticulosis. FINDINGS: The previous CT abdomen/pelvis exam of 02/12/2017 noted nonspecific minimal thickening of the sigmoid colon as well as diverticulosis. There is no sign of acute diverticulitis. On this exam, there is now a suggestion of a soft tissue density along the anterior wall of the rectosigmoid colon on the left. This area measures approximately 1.1 x 0.7 x 3.0 cm in maximum transverse AP and longitudinal dimensions. This finding could be secondary to incomplete distention of the colon. The possibility that there is a mass in this area should certainly be considered. Endoscopy would be recommended for further study. The remainder of the colon is unremarkable for a mass lesion. The colon is difficult to evaluate as there is a fair amount of fecal material throughout the colon. There are a few diverticula in the sigmoid colon, but there is no sign of acute diverticulitis. As noted on the prior exam, the uterus is surgically absent. The urinary bladder is grossly unremarkable. The liver, spleen, pancreas, adrenals, kidneys, aorta, and inferior vena cava show no sign of an acute abnormality. As seen on the prior exam, the gallbladder is surgically absent. The stomach is not well distended and difficult to assess. The small hiatal hernia seen previously is again evident. The previous exam did note that a portion of the mesenteric fat extending through a defect in the anterior abdominal wall just along the right lateral aspect of the umbilicus. That finding is again evident and unchanged. There is no incarceration or obstruction of the bowel in this area. The lung bases are clear. The bone windows show no sign of a fracture or of a destructive lesion. IMPRESSION: 1. The findings are suspicious for a small mass along the anterior aspect of the rectosigmoid colon on the left. Endoscopy would be recommended for further study. 2. There are a few diverticula in the sigmoid colon, but there is no sign of acute diverticulitis. 3. There is no acute abnormality of the abdomen or pelvis noted otherwise. 4. The uterus and gallbladder are surgically absent. Dictated by: Dictated on workstation # [id number]
== END ==
LOC: RAD 10:17
PROVIDERS: ATTEND Nurse Practitioner Family
DX: K63.89 Other specified diseases of intestine (principal); K57.30 Diverticulosis of large intestine without perforation or abscess without bleeding; Z90.49 Acquired absence of other specified parts of digestive tract; Z90.710 Acquired absence of both cervix and uterus; Z85.42 Personal history of malignant neoplasm of other parts of uterus
CPT/HCPCS: 36415; 74176; 82565; 84520

== ENCOUNTER → 2017-05-06 | Outpatient (CLI) | payer MEDICARE, OTHER ==
[~2017-05-06] MED LIST changes: -DIATRIZOATE MEGLUM/SODIUM 37% 120 ML (GASTROGRAFIN) PO ONE
--- NOTE | 2017-05-06 12:01 | Diagnostic Imaging Report ---
EXAMINATION: Ultrasound of the right breast complete. INDICATION: Abnormal mammogram. FINDINGS: The mammogram performed on 04/16/2017 noted a poorly defined 1.7 x 1.6 cm spiculated mass in the 9 to 10 o'clock position of the right breast roughly 8 cm from the nipple. The ultrasound examination of this area reveals that there is a poorly defined spiculated hypoechoic mass measuring 1.6 x 1.5 x 1.6 cm in this region. There is internal blood flow. This finding should be considered neoplastic until proven otherwise. An ultrasound guided biopsy would be recommended. IMPRESSION: 1. There is a suspicious hypoechoic mass in the area of the previously described spiculated mass seen on the mammogram. This finding should be considered neoplastic until proven otherwise. An ultrasound guided biopsy would be recommended. 2. These results were discussed with Dr. Contreras. ACR BI-RADS Category 5: Highly suggestive of malignancy. Dictated by: Dictated on workstation # [id number]
== END ==
LOC: RAD 10:36
PROVIDERS: ATTEND Internal Medicine Hematology & Oncology
DX: R92.8 Other abnormal and inconclusive findings on diagnostic imaging of breast (principal)
CPT/HCPCS: 76641

== ENCOUNTER → 2017-05-11 | Outpatient (CLI) | payer MEDICARE, OTHER ==
[~2017-05-11] VITALS: Ht 149.9 cm; Wt 76.2 kg
[~2017-05-11] MED LIST changes: +LIDOCAINE 1% INJ 20 ML (XYLOCAINE) VIAL INJ ONE; +LIDOCAINE 1% INJ 20 ML (XYLOCAINE) VIAL ONE
[2017-05-11 13:10] VITALS: BP 127/71
[2017-05-11 13:59] VITALS: BP 120/80
--- NOTE | 2017-05-11 19:33 | Diagnostic Imaging Report ---
INDICATION: Clip placement. FINDINGS: Comparison is made with a prior examination from 04/16/2017. FINDINGS: A surgical clip is immediately adjacent to the mass in the upper-outer aspect of the right breast. IMPRESSION: Satisfactory postbiopsy clip placement, as described. Dictated by: Dictated on workstation # [id number]
--- NOTE | 2017-05-12 15:33 | RADIOLOGY REPORT ---
NAME: SUSANA BELCHER [facility] REC#: [id number] PT STATUS: REG CLI : 1940 PHYSICIAN: ANNETTE JIMENEZ ADMIT DATE: 05/11/17/RAD CORRECTED Signed Date of Exam:05/11/17 US BRST BX 1ST LES RT W/G INDICATION: Right breast mass. TECHNIQUE AND FINDINGS: After explaining the risks, benefits and alternatives of the procedure to the patient written consent was obtained. The patient's right breast was prepped and draped utilizing maximal sterile barrier technique. Local anesthesia was obtained with 2% lidocaine. An 18-gauge Temno needle was advanced into the lesion under ultrasound guidance. Four core biopsy specimens were obtained and submitted directly to pathology for evaluation. Following biopsy a clip was placed. Adequate hemostasis was obtained. Patient tolerated the procedure well and left the department in stable condition. IMPRESSION: Successful ultrasound-guided right breast biopsy as described Dictated by: Dictated on workstation # [id number] Dict: 05/11/17 1425 Trans: 05/12/17 0726 VALENTÍN [id number] Interpreted by: SRUTHI MCKENZIE Electronically signed by: SRUTHI MCKENZIE 05/12/17 0726 MTDD
== END ==
LOC: RAD 12:49
PROVIDERS: ATTEND Nurse Practitioner Adult Health
DX: N63 Unspecified lump in breast (principal)
CPT/HCPCS: 19083

== ENCOUNTER → 2017-05-19 | Outpatient (CLI) | payer MEDICARE, OTHER ==
[~2017-05-19] MED LIST changes: -LIDOCAINE 1% INJ 20 ML (XYLOCAINE) VIAL INJ ONE; -LIDOCAINE 1% INJ 20 ML (XYLOCAINE) VIAL ONE
--- NOTE | 2017-05-20 12:50 | Diagnostic Imaging Report ---
EXAMINATION: PET/CT. INDICATION: Breast cancer. TECHNIQUE: After intravenous administration of 12.95 mCi of F18-FDG, a series of overlapping emission and transmission PET images was obtained. In the coronal, transaxial and sagittal planes, the area imaged extended from the skull base through the upper thighs. FINDINGS: The previous PET/CT exam performed on 05/29/2015 failed to show any sign of malignancy. There was abnormal uptake involving the left side of the posterior arch of C1. This is felt to be related to prior trauma and/or inflammation. There was also moderate physiologic uptake in the sigmoid colon. Moderately increased activity was also noted in the perineum and overlying the vagina. This was felt to be possibly related to urine contamination. The possibility of neoplastic involvement of this area was also raised, given the patient's history of endometrial carcinoma. The bilateral screening mammogram of 04/16/2017 noted an abnormal mass in the 9 to 10 o'clock position of the right breast. This finding was subsequently biopsied with ultrasound guidance on 05/11/2017 and a diagnosis of carcinoma was established. On this study, there is a small area of hypermetabolic activity in the lateral aspect of the right breast in the area of the patient's recent biopsy. The maximum SUV in this area is 2.1. This finding would correspond with the patient's known diagnosis of malignancy. There is no other hypermetabolic focus to suggest neoplastic disease. There is slightly increased uptake in both hilar regions. This appearance is similar to the prior exam and the maximum SUV in this area is only 2.7. There is no hypermetabolic activity in the pelvis to suggest malignancy related to the patient's diagnosis of endometrial carcinoma. The CT abdomen/pelvis exam performed on 04/29/2017 did raise the question of a small mass along the anterior aspect of the rectosigmoid colon on the left. This area is difficult to evaluate as there is a considerable amount of physiologic activity in the rectosigmoid portion of the colon. There is no clear evidence for a mass, however. Even so, clinical followup is recommended. IMPRESSION: 1. There is a small area of slightly increased metabolic activity in the right breast. This would correspond to the patient's recent diagnosis of breast cancer. 2. There is no abnormal hypermetabolic activity to suggest metastatic disease. 3. The questionable small neoplasm involving the rectosigmoid colon on the left seen on the recent CT abdomen/pelvis exam is not clearly hypermetabolic. This area is difficult to assess, however, due to the physiologic activity of the rectosigmoid portion of the colon. If further evaluation is desired, then sigmoidoscopy would be recommended. Dictated by: Dictated on workstation # [id number]
== END ==
LOC: RAD 10:17
PROVIDERS: ATTEND Nurse Practitioner Adult Health
DX: C50.911 Malignant neoplasm of unspecified site of right female breast (principal); K63.9 Disease of intestine, unspecified

== ENCOUNTER 2017-05-26 15:31 | Outpatient (RCR) | payer MEDICARE, OTHER ==
[2017-05-07 14:52] LABS: BILIRUBIN,URINE NEGATIVE (NEGATIVE); KETONES,URINE NEGATIVE (NEGATIVE); NITRITE,URINE NEGATIVE (NEGATIVE); PH,URINE 6 (5-9); PROTEIN,URINE 3+ (NEGATIVE); UROBILINOGEN,URINE NORMAL (NORMAL)
[2017-05-07 14:53] LABS: LEUKOCYTE ESTERASE ,URINE 3+ (NEGATIVE); WBC,URINE TNTC /HPF
[2017-05-07 15:25] LABS: LYMPHOCYTES % (AUTO) 11 % (12-44); MEAN CORPUSCULAR HEMOGLOBIN 31 PG (25-34); MEAN CORPUSCULAR HGB CONC 32 G/DL (32-36); MEAN CORPUSCULAR VOLUME 99 FL (80-99); MEAN PLATELET VOLUME 8.9 FL (7.4-10.4); MONOCYTES % (AUTO) 10 % (0-12); NEUTROPHILS % (AUTO) 66 % (42-75); PLATELET COUNT 224 10^3/uL (130-400); RED BLOOD COUNT 3.15 10^6/uL (4.35-5.85); RED CELL DISTRIBUTION WIDTH 17.3 % (10.0-14.5); WHITE BLOOD COUNT 3.6 10^3/uL (4.3-11.0)
[2017-05-07 15:26] LABS: BASOPHILS % (AUTO) 1 % (0-10); EOSINOPHILS # (AUTO) 0.4 10^3/uL (0.0-0.3); EOSINOPHILS % (AUTO) 12 % (0-10); LYMPHOCYTES # (AUTO) 0.4 X 10^3 (1.0-4.0); MONOCYTES # (AUTO) 0.4 X 10^3 (0.0-1.0); NEUTROPHILS # (AUTO) 2.4 X 10^3 (1.8-7.8)
[2017-05-07 15:29] LABS: BILIRUBIN,TOTAL 0.3 MG/DL (0.1-1.0); CALCIUM 8.9 MG/DL (8.5-10.1); CREATININE SERUM 1.25 MG/DL (0.60-1.30); MAGNESIUM 1.8 MG/DL (1.8-2.4); POTASSIUM 4.9 MMOL/L (3.6-5.0)
[2017-05-07 15:30] LABS: ALBUMIN 3.5 GM/DL (3.2-4.5); TOTAL PROTEIN 6.2 GM/DL (6.4-8.2)
[2017-05-08 06:55] LABS: FERRITIN 371.0 H NG/ML (15.0-150.0)
[~2017-05-26 15:31] MED LIST changes: +FERRIC CARBOXYMALTOSE (CANCER) 750 MG in NS (IVPB) CANCER CENTER 250 ML IV SCH; +NS IV 500 ML (CANCER CENTER) 500 ML ONE
[2017-05-26 15:39] LABS: BASOPHILS % (AUTO) 1 % (0-10); EOSINOPHILS # (AUTO) 0.5 10^3/uL (0.0-0.3); EOSINOPHILS % (AUTO) 12 % (0-10); LYMPHOCYTES # (AUTO) 0.6 X 10^3 (1.0-4.0); LYMPHOCYTES % (AUTO) 14 % (12-44); MEAN CORPUSCULAR HEMOGLOBIN 33 PG (25-34); MEAN CORPUSCULAR HGB CONC 33 G/DL (32-36); MEAN CORPUSCULAR VOLUME 99 FL (80-99); MEAN PLATELET VOLUME 8.6 FL (7.4-10.4); MONOCYTES # (AUTO) 0.5 X 10^3 (0.0-1.0); MONOCYTES % (AUTO) 13 % (0-12); NEUTROPHILS # (AUTO) 2.5 X 10^3 (1.8-7.8); NEUTROPHILS % (AUTO) 60 % (42-75); PLATELET COUNT 202 10^3/uL (130-400); RED BLOOD COUNT 3.16 10^6/uL (4.35-5.85); RED CELL DISTRIBUTION WIDTH 17.1 % (10.0-14.5); WHITE BLOOD COUNT 4.2 10^3/uL (4.3-11.0)
[2017-05-26 16:05] LABS: ALBUMIN 3.7 GM/DL (3.2-4.5); BILIRUBIN,TOTAL 0.4 MG/DL (0.1-1.0); CALCIUM 8.9 MG/DL (8.5-10.1); CREATININE SERUM 1.39 MG/DL (0.60-1.30); POTASSIUM 5.2 MMOL/L (3.6-5.0); TOTAL PROTEIN 6.4 GM/DL (6.4-8.2)
[2017-05-26 16:41] LABS: BILIRUBIN,URINE NEGATIVE (NEGATIVE); KETONES,URINE NEGATIVE (NEGATIVE); LEUKOCYTE ESTERASE ,URINE 2+ (NEGATIVE); NITRITE,URINE NEGATIVE (NEGATIVE); PH,URINE 5 (5-9); PROTEIN,URINE 2+ (NEGATIVE); UROBILINOGEN,URINE NORMAL (NORMAL)
[2017-05-26 16:59] LABS: SQUAMOUS EPITHELIAL CELL,UR 0-2 /HPF
== END 2017-06-13 | disposition home or self-care (01) ==
LOC: ONC 15:31
PROVIDERS: ATTEND Internal Medicine Hematology & Oncology
DX: Z79.899 Other long term (current) drug therapy; E11.319 Type 2 diabetes mellitus with unspecified diabetic retinopathy without macular edema; R82.99 Other abnormal findings in urine; I10 Essential (primary) hypertension; E66.01 Morbid (severe) obesity due to excess calories; Z68.41 Body mass index [BMI] 40.0-44.9, adult; C54.1 Malignant neoplasm of endometrium; Z79.4 Long term (current) use of insulin; H54.8 Legal blindness, as defined in USA; N63 Unspecified lump in breast
CPT/HCPCS: 36415; 36591; 80053; 81000; 82378; 82728; 83735; 85025; 87088; 87186; 96361; 96365; 99213

== ENCOUNTER → 2017-06-25 | Outpatient (CLI) | payer MEDICARE, OTHER ==
[~2017-06-25] MED LIST changes: -FERRIC CARBOXYMALTOSE (CANCER) 750 MG in NS (IVPB) CANCER CENTER 250 ML IV SCH; -NS IV 500 ML (CANCER CENTER) 500 ML ONE
--- NOTE | 2017-06-25 12:26 | Diagnostic Imaging Report ---
EXAMINATION: DEXA scan. INDICATION: Menopause. Breast cancer. TECHNIQUE: Bone mineral density estimated based on dual energy radiography over the lumbar spine and femoral necks, was performed. FINDINGS: The lumbar spine T-score is 1.5. T score over the left femoral neck is -0.3 and on the right side is 0.2. The T score over the lumbar spine is exaggerated by sclerotic degenerative changes. IMPRESSION: Normal bone mineral density. Dictated by: Dictated on workstation # [id number]
== END ==
LOC: RAD 09:57
PROVIDERS: ATTEND Nurse Practitioner Adult Health
DX: Z78.0 Asymptomatic menopausal state (principal); C50.411 Malignant neoplasm of upper-outer quadrant of right female breast; C54.1 Malignant neoplasm of endometrium
CPT/HCPCS: 77080

== ENCOUNTER → 2017-06-29 | Outpatient (CLI) | payer MEDICARE, OTHER ==
--- NOTE | 2017-06-29 10:57 | Diagnostic Imaging Report ---
EXAMINATION: Modified barium swallow. Indication: Dysphagia Different consistencies of fluid and food was given mixed with barium and swallowing was visualized under fluoroscopy. FLUOROSCOPY TIME: 42 seconds FINDINGS: No aspiration seen.. IMPRESSION: No aspiration seen. Please refer to speech therapist's report for additional details . Dictated by: Dictated on workstation # [id number]
== END ==
LOC: RAD 10:04
PROVIDERS: ATTEND Internal Medicine
DX: R13.14 Dysphagia, pharyngoesophageal phase (principal)
CPT/HCPCS: 74230

== ENCOUNTER 2017-08-14 12:36 | Outpatient (RCR) | payer MEDICARE, OTHER ==
[2017-07-06 14:48] LABS: BASOPHILS % (AUTO) 0 % (0-10); EOSINOPHILS # (AUTO) 0.4 10^3/uL (0.0-0.3); EOSINOPHILS % (AUTO) 8 % (0-10); LYMPHOCYTES # (AUTO) 0.6 X 10^3 (1.0-4.0); LYMPHOCYTES % (AUTO) 13 % (12-44); MEAN CORPUSCULAR HEMOGLOBIN 33 PG (25-34); MEAN CORPUSCULAR HGB CONC 33 G/DL (32-36); MEAN CORPUSCULAR VOLUME 99 FL (80-99); MEAN PLATELET VOLUME 9.2 FL (7.4-10.4); MONOCYTES # (AUTO) 0.5 X 10^3 (0.0-1.0); MONOCYTES % (AUTO) 10 % (0-12); NEUTROPHILS # (AUTO) 3.1 X 10^3 (1.8-7.8); NEUTROPHILS % (AUTO) 69 % (42-75); PLATELET COUNT 227 10^3/uL (130-400); RED BLOOD COUNT 3.19 10^6/uL (4.35-5.85); RED CELL DISTRIBUTION WIDTH 13.8 % (10.0-14.5); WHITE BLOOD COUNT 4.6 10^3/uL (4.3-11.0)
[2017-07-06 15:04] LABS: ALBUMIN 3.6 GM/DL (3.2-4.5); BILIRUBIN,TOTAL 0.2 MG/DL (0.1-1.0); CALCIUM 8.9 MG/DL (8.5-10.1); CREATININE SERUM 1.16 MG/DL (0.60-1.30); POTASSIUM 4.6 MMOL/L (3.6-5.0); TOTAL PROTEIN 6.5 GM/DL (6.4-8.2)
[2017-08-14 13:03] LABS: BASOPHILS % (AUTO) 1 % (0-10); EOSINOPHILS # (AUTO) 0.3 10^3/uL (0.0-0.3); EOSINOPHILS % (AUTO) 6 % (0-10); LYMPHOCYTES # (AUTO) 0.6 X 10^3 (1.0-4.0); LYMPHOCYTES % (AUTO) 13 % (12-44); MEAN CORPUSCULAR HEMOGLOBIN 34 PG (25-34); MEAN CORPUSCULAR HGB CONC 35 G/DL (32-36); MEAN CORPUSCULAR VOLUME 97 FL (80-99); MEAN PLATELET VOLUME 8.7 FL (7.4-10.4); MONOCYTES # (AUTO) 0.5 X 10^3 (0.0-1.0); MONOCYTES % (AUTO) 11 % (0-12); NEUTROPHILS # (AUTO) 3.1 X 10^3 (1.8-7.8); NEUTROPHILS % (AUTO) 71 % (42-75); PLATELET COUNT 194 10^3/uL (130-400); RED BLOOD COUNT 3.14 10^6/uL (4.35-5.85); RED CELL DISTRIBUTION WIDTH 11.5 % (10.0-14.5); WHITE BLOOD COUNT 4.4 10^3/uL (4.3-11.0)
[2017-08-14 13:20] LABS: ALBUMIN 3.8 GM/DL (3.2-4.5); BILIRUBIN,TOTAL 0.4 MG/DL (0.1-1.0); CALCIUM 9.3 MG/DL (8.5-10.1); CREATININE SERUM 1.26 MG/DL (0.60-1.30); POTASSIUM 4.7 MMOL/L (3.6-5.0); TOTAL PROTEIN 6.7 GM/DL (6.4-8.2)
== END 2017-08-20 14:30 | disposition home or self-care (01) ==
LOC: ONC 12:36
PROVIDERS: ATTEND Internal Medicine Hematology & Oncology
DX: C50.411 Malignant neoplasm of upper-outer quadrant of right female breast (principal); C54.1 Malignant neoplasm of endometrium; E11.319 Type 2 diabetes mellitus with unspecified diabetic retinopathy without macular edema; E11.40 Type 2 diabetes mellitus with diabetic neuropathy, unspecified; I10 Essential (primary) hypertension; E66.9 Obesity, unspecified
CPT/HCPCS: 36591; 80053; 82728; 85025

== ENCOUNTER → 2017-08-19 | Outpatient (CLI) | payer MEDICARE, OTHER ==
--- NOTE | 2017-08-19 10:15 | Diagnostic Imaging Report ---
EXAMINATION: Right breast ultrasound. INDICATION: Followup right breast cancer. COMPARISON: 05/06/2017. FINDINGS: At the 9:30 o'clock position 6 cm from the nipple, there is a hypoechoic mass with irregular margins measuring 1.3 x 1.5 x 1.4 cm and demonstrates internal vascularity which appears slightly less prominent compared to the prior exam. This is minimally smaller in size compared to the prior measurements of 1.6 x 1.5 x 1.6 cm. IMPRESSION: The biopsy-proven 1.5 cm breast cancer mass is minimally smaller compared to the prior exam. ACR BI-RADS Category 6: Known biopsy proven malignancy. Dictated by: Dictated on workstation # [id number]
== END ==
LOC: RAD 09:08
PROVIDERS: ATTEND Internal Medicine Hematology & Oncology
DX: C50.411 Malignant neoplasm of upper-outer quadrant of right female breast (principal)

== ENCOUNTER → 2017-09-16 | Outpatient (CLI) | payer MEDICARE, OTHER ==
[~2017-09-16] MED LIST changes: +ACHD5005 PO; -HYDR-3812 PO
--- NOTE | 2017-09-16 09:35 | Diagnostic Imaging Report ---
INDICATION: Breast cancer. Comparison made with prior examination from 08/19/2017. TECHNIQUE: Targeted ultrasound of the right breast in the 9 o'clock position was performed. FINDINGS: In the 9:30 position of the right breast 6 cm from the nipple there is an ill-defined hypoechoic mass with posterior acoustic shadowing. The measures 1.5 x 1.3 x 1.3 cm. This is essentially unchanged when compared to prior examination. No other discrete solid or cystic masses are appreciated. IMPRESSION: Stable biopsy-proven 1.5 cm breast cancer. This is unchanged in size when compared to the prior examination. BI-RADS category 6: Known biopsy-proven malignancy. ACR BI-RADS Category 6: Known biopsy proven malignancy. Dictated by: Dictated on workstation # [id number]
== END ==
LOC: RAD 08:54
PROVIDERS: ATTEND Internal Medicine Hematology & Oncology
DX: C50.411 Malignant neoplasm of upper-outer quadrant of right female breast (principal)

== ENCOUNTER → 2017-10-06 | Outpatient (CLI) | payer MEDICARE, OTHER ==
[~2017-10-06] MED LIST changes: +CATHETER FLUSH 10 ML SYR IV PRN; +REGADENOSON 0.4 MG/5 ML SYR (LEXISCAN) IV ONE
[2017-10-06 10:09] VITALS: BP 134/64
--- NOTE | 2017-10-06 17:05 | STRESS TEST ---
DATE OF SERVICE: 10/06/2017 RESTING AND POST REGADENOSON TECHNETIUM-99M TETROFOSMIN SPECT CT IMAGING ORDERING PHYSICIAN: Karolyn Tang MD, ADORE, FACP, FACC Baseline images were carried out after injection of 10.24 mCi of technetium-99m Tetrofosmin for stress imaging. This was followed by 0.4 mg regadenoson and 31.5 mCi of technetium-99m Tetrofosmin for stress imaging. The electrocardiogram showed sinus rhythm with left anterior fascicular and right bundle branch block. The electrocardiogram did not change significantly with the regadenoson infusion. The patient tolerated the procedure well. Review of images at rest and following stress does not indicate significant perfusion defects consistent with significant myocardial ischemia or infarction. Gated images show normal global left ventricular systolic function with normal regional wall motion. Left ventricular ejection fraction is calculated to be 68%. Left ventricular end diastolic volume is 63 mL. TID is absent (1.03). CONCLUSIONS: 1. No evidence of significant myocardial ischemia or infarction on this study. 2. Normal regional wall motion. 3. Normal global left ventricular systolic function with a calculated ejection fraction of 68%. 4. Abnormal electrocardiogram showing right bundle branch block and left anterior fascicular block at baseline. Job ID: [id number] DocumentID: [id number] Dictated Date: 10/06/2017 16:32:06 Rag Washer Date: 10/06/2017 17:04:32 Dictated By: KAROLYN TANG MD, ADORE, FACP, FACC,
== END ==
LOC: CARD 08:21
PROVIDERS: ATTEND Internal Medicine Cardiovascular Disease
DX: R94.31 Abnormal electrocardiogram [ECG] [EKG] (principal); C54.1 Malignant neoplasm of endometrium; C50.411 Malignant neoplasm of upper-outer quadrant of right female breast; H54.8 Legal blindness, as defined in USA; E11.9 Type 2 diabetes mellitus without complications; R06.02 Shortness of breath
CPT/HCPCS: 78452; 93017

== ENCOUNTER → 2017-10-07 | Outpatient (CLI) | payer MEDICARE, OTHER ==
[~2017-10-07] MED LIST changes: -CATHETER FLUSH 10 ML SYR IV PRN; -REGADENOSON 0.4 MG/5 ML SYR (LEXISCAN) IV ONE
== END ==
LOC: CARD 13:21
PROVIDERS: ATTEND Internal Medicine Cardiovascular Disease
DX: R06.02 Shortness of breath (principal); R94.31 Abnormal electrocardiogram [ECG] [EKG]; E11.9 Type 2 diabetes mellitus without complications; H54.8 Legal blindness, as defined in USA; C50.411 Malignant neoplasm of upper-outer quadrant of right female breast; C54.1 Malignant neoplasm of endometrium
CPT/HCPCS: 93306

== ENCOUNTER → 2017-11-19 | Outpatient (RCR) | payer MEDICARE, OTHER ==
[2017-09-18 13:15] LABS: BASOPHILS # (AUTO) 0.1 10^3/uL (0.0-0.1); BASOPHILS % (AUTO) 1 % (0-10); EOSINOPHILS # (AUTO) 0.3 10^3/uL (0.0-0.3); EOSINOPHILS % (AUTO) 8 % (0-10); HEMATOCRIT 25 % (35-52); HEMOGLOBIN 9.5 G/DL (11.5-16.0); LYMPHOCYTES # (AUTO) 0.5 X 10^3 (1.0-4.0); LYMPHOCYTES % (AUTO) 14 % (12-44); MEAN CORPUSCULAR HEMOGLOBIN 34 PG (25-34); MEAN CORPUSCULAR HGB CONC 38 G/DL (32-36); MEAN CORPUSCULAR VOLUME 90 FL (80-99); MEAN PLATELET VOLUME 8.7 FL (7.4-10.4); MONOCYTES # (AUTO) 0.4 X 10^3 (0.0-1.0); MONOCYTES % (AUTO) 12 % (0-12); NEUTROPHILS # (AUTO) 2.4 X 10^3 (1.8-7.8); NEUTROPHILS % (AUTO) 65 % (42-75); PLATELET COUNT 190 10^3/uL (130-400); RED BLOOD COUNT 2.81 10^6/uL (4.35-5.85); RED CELL DISTRIBUTION WIDTH 12.2 % (10.0-14.5); WHITE BLOOD COUNT 3.6 10^3/uL (4.3-11.0)
[2017-09-18 13:42] LABS: ALBUMIN 3.5 GM/DL (3.2-4.5); BILIRUBIN,TOTAL 0.3 MG/DL (0.1-1.0); CALCIUM 8.8 MG/DL (8.5-10.1); CREATININE SERUM 1.05 MG/DL (0.60-1.30); POTASSIUM 4.3 MMOL/L (3.6-5.0)
[2017-11-19 15:07] LABS: BILIRUBIN,URINE NEGATIVE (NEGATIVE); CLARITY,URINE VERY CLOUDY; COLOR,URINE YELLOW; GLUCOSE, URINE (UA) NEGATIVE (NEGATIVE); KETONES,URINE NEGATIVE (NEGATIVE); LEUKOCYTE ESTERASE ,URINE 3+ (NEGATIVE); NITRITE,URINE NEGATIVE (NEGATIVE); PH,URINE 6.5 (5-9); PROTEIN,URINE 2+ (NEGATIVE); UROBILINOGEN,URINE NORMAL (NORMAL)
[2017-11-19 15:29] LABS: RBC,URINE RARE /HPF; WBC,URINE TNTC /HPF
[2017-11-19 15:30] LABS: BACTERIA,URINE LARGE /HPF
== END | disposition home or self-care (01) ==
LOC: ONC 08-21 13:02
PROVIDERS: ATTEND Internal Medicine Hematology & Oncology
DX: C50.411 Malignant neoplasm of upper-outer quadrant of right female breast (principal); C54.1 Malignant neoplasm of endometrium; E11.319 Type 2 diabetes mellitus with unspecified diabetic retinopathy without macular edema; E11.40 Type 2 diabetes mellitus with diabetic neuropathy, unspecified; I10 Essential (primary) hypertension; R82.99 Other abnormal findings in urine; R53.81 Other malaise; K63.9 Disease of intestine, unspecified; E66.9 Obesity, unspecified; Z68.33 Body mass index [BMI] 33.0-33.9, adult; Z17.0 Estrogen receptor positive status [ER+]; Z90.710 Acquired absence of both cervix and uterus; Z79.4 Long term (current) use of insulin; Z79.899 Other long term (current) drug therapy; Z45.2 Encounter for adjustment and management of vascular access device
CPT/HCPCS: 36591; 80053; 81000; 85025; 87077; 87088; 87186; 96523; 99213

== ENCOUNTER 2017-11-24 06:33 | Outpatient (CLI) | payer MEDICARE, OTHER ==
[~2017-11-24] VITALS: Ht 149.9 cm; Wt 78.9 kg
[2017-11-24] MEDS ORDERED: INSU100I10 SQ (12:46)
== END 2017-11-24 12:47 ==
LOC: PREOP 06:33
PROVIDERS: ATTEND Surgery
DX: Z01.818 Encounter for other preprocedural examination (principal); Z12.11 Encounter for screening for malignant neoplasm of colon

== ENCOUNTER 2017-11-27 11:35 | Day surgery (SDC) | payer MEDICARE, OTHER ==
[~2017-11-27] VITALS: Ht 149.9 cm; Wt 78.9 kg
[~2017-11-27 11:35] MED LIST changes: +INSU100I10 SQ
[2017-11-27] MEDS ORDERED: NS IV 500 ML 500 ML IV PRN (11:55)
[2017-11-27] MEDS ORDERED: LIDOCAINE JELLY 2% (XYLOCAINE) 5 ML TUBE MM PRN (12:00)
[2017-11-27] MEDS ORDERED: NS IV 500 ML 500 ML ONE (12:21)
--- NOTE | 2017-11-27 12:25 | Conscious Sedation/ASA ---
Conscious Sedation Pre-Proced Time Reviewed: 12:00 ASA Class: 2 Airway Mallampati Classification: ([place] appropriate class) I. II. III, IV Lungs Heart ASA score ASA 1: a normal healthy patient ASA 2: a patient with a mild systemic disease (mid diabetes, controlled hypertension, obesity ASA 3: a patient with a severe systemic disease that limits activity (angina , COPD, prior Myocardial infarction) ASA 4: a patient with an incapacitating disease that is a constant threat to life (CHF, renal failure) ASA 5: a moribund patient not expected to survive 24 hrs. (ruptured aneurysm) ASA 6: a declared brain patient whose organs are being harvested. For emergent operations, add the letter E after the classification Grade 3 Sedation Plan: Analgesia, Amnesia, Plan communicated to team members, Discussed options with patient/fam, Discussed risks with patient/fam Note The patient is an appropriate candidate to undergo the planned procedure, sedation, and anesthesia. The patient immediately re-assessed prior to indication. TELMA GRIER MD Nov 27, 2017 12:25
--- NOTE | 2017-11-27 12:27 | Progress Note-Pre Operative ---
Pre-Operative Progress Note H&P Reviewed The H&P was reviewed, patient examined and no changes noted. Date Seen by Provider: Nov 27, 2017 Time Seen by Provider: 12:00 Date H&P Reviewed: Nov 27, 2017 Time H&P Reviewed: 12:00 Pre-Operative Diagnosis: hx colon lesion TELMA GRIER MD Nov 27, 2017 12:27
[2017-11-27] MEDS ORDERED: morphine INJ 10 MG/ML 1ML (SYR OR VIAL) IV PRN (12:30)
[2017-11-27] MEDS ORDERED: HYDROcodone/APAP 5 MG/325 MG (LORTAB) TAB PO PRN (12:30)
[2017-11-27] MEDS ORDERED: ACETAMINOPHEN 325 MG TABLET/CAPLET (TYLENOL) PO PRN (12:30)
[2017-11-27] MEDS ORDERED: ONDANSETRON 4 MG/2 ML (SDV) Z0FRAN IV PRN (12:30)
[2017-11-27] MEDS ORDERED: MIDAZOLAM 2 MG/2 ML (VERSED) VIAL ONE ×2 (13:59)
[2017-11-27] MEDS ORDERED: fentaNYL INJECTION 100 MCG/2 ML AMP ONE (13:59)
[2017-11-27] MEDS ORDERED: LIDOCAINE JELLY 2% (XYLOCAINE) 5 ML TUBE ONE (14:00)
[2017-11-27] MEDS: fentaNYL INJECTION 100 MCG/2 ML AMP IVP PRN ×2 (14:15→14:25)
[2017-11-27] MEDS: MIDAZOLAM 2 MG/2 ML (VERSED) VIAL IVP PRN ×2 (14:16→14:21)
[2017-11-27 14:50] VITALS: BP 137/52
--- NOTE | 2017-11-27 14:50 | Progress Note-Post Operative ---
Post-Operative Progess Note Surgeon (s)/Brokerage Office Manager (s) Surgeon TELMA GRIER MD Brokerage Office Manager: none Pre-Operative Diagnosis hx colon lesion Post-Operative Diagnosis mild chronic stage 2 ext and int hemorrhoids, mild sigmoid diverticulosis. Procedure & Operative Findings Date of Procedure 11/27/17 Procedure Performed/Findings Colonoscopy. Anesthesia Type CS Estimated Blood Loss Estimated blood loss (mL): minimal Specimens/Packing Specimens Removed none TELMA GRIER MD Nov 27, 2017 2:50 pm
--- NOTE | 2017-11-27 14:51 | Discharge Inst-Surgical ---
D/C Lap Instructions-MARVEL Follow Up 5 yrs Activity as tolerated High Fiber Diet 25g or more per day Avoid Alcohol, Caffeine, Spicy [place] and Acid foods. Drink 64 fluid oz or more of fluids per day. Symptoms to Report: Fever over 101 degree F, Nausea/Vomiting If any problems/questions: Contact your physician or go to Emergency Room TELMA GRIER MD Nov 27, 2017 2:51 pm
[2017-11-27 15:20] VITALS: BP 129/66
--- NOTE | 2017-11-28 00:16 | OPERATIVE REPORT ---
DATE OF SERVICE: 11/27/2017 ATTENDING PRIMARY CARE PHYSICIAN: Missael Jaramillo DO PREOPERATIVE DIAGNOSES: History of endometrial and breast cancer, screening colonoscopy. POSTOPERATIVE DIAGNOSES: Chronic stage II external and internal hemorrhoids, mild sigmoid diverticulosis. PROCEDURE: Colonoscopy. SURGEON: Telma Grier MD ANESTHESIA: Conscious sedation. ESTIMATED BLOOD LOSS: Minimal. FINDINGS: Chronic stage II external and internal hemorrhoids. A hard mass was identified upon digital rectal examination; however, there was no bleeding identified. Mild sigmoid diverticulosis. Remainder of the colon was normal. There were no polyps or any neoplasms identified throughout the colon or rectum. DISPOSITION: The patient tolerated the procedure well. INDICATIONS: The patient is a 77-year-old female with history of endometrial cancer. She did report some issues with reflux as well as dysphagia and underwent a CT scan, which did show a probable esophagitis as well as thickening around the sigmoid colon. She underwent an EGD as well as an attempt of a colonoscopy in 02/2017. EGD showed a distal esophagitis and found to have esophageal candidiasis. There is no bleeding source identified. A colonoscopy was attempted; however, due to the tortuosity of the sigmoid colon only sigmoidoscopy was performed. Since being treated for endometrial cancer, which encompassed radiation and chemotherapy, she was diagnosed with breast cancer in 04/2017, which was ER/AL positive and HER2-negative. 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 At this time, she is in need of a followup colonoscopy, but she has not had a full colonoscopy up to this point. She states for the most part she is doing well and does not report any major issues with diarrhea, no constipation as well as no red blood per rectum nor any dark tarry stools. She does have a strong family history of cancers, which include mother and sister with uterine cancer; however, no colon cancer in the family. DESCRIPTION OF PROCEDURE: The patient was brought to the endoscopy suite, laid in the left lateral decubitus position. After adequate IV pain and sedating medications and conscious sedation anesthesia, a digital rectal examination was performed. Mild chronic stage II external and internal hemorrhoids were identified, which were not actively edematous nor inflamed and no bleeding. Normal sphincter tone was felt and there was a palpable hardness anteriorly. There were no mucosal erosions identified. There was also no bleeding. The endoscope was then intubated to the anus and the rectum gently insufflated. The endoscope was then advanced to the valves of [place] of the rectum with no polyps or any neoplasms identified. We then proceeded to the sigmoid colon where a mild sigmoid diverticulosis identified. There were no mucosal inflammatory changes to indicate any active diverticulitis. The endoscope was then advanced to the remainder of the descending, transverse and ascending colon to the cecum. These segments were normal. There were no polyps or any neoplasms identified throughout the colon or rectum. The endoscope was then slowly withdrawn while taking a second look and suctioning residual air with no additional findings. The patient tolerated the procedure well. We will recommend medical management with a high fiber diet with at least 25 to 30 grams of fiber per day as well as at least 64 fluid ounces of water daily to promote soft stools on a daily basis. 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 Due to this, we will recommend a followup colonoscopy in 5 years. Job ID: [id number] DocumentID: [id number] Dictated Date: 11/27/2017 14:43:03 Digital Art Director Date: 11/28/2017 00:15:21 Dictated By: TELMA GRIER MD
== END 2017-11-27 15:35 | disposition home or self-care (01) ==
LOC: ENDO 11:35
PROVIDERS: ATTEND Surgery
DX: K57.30 Diverticulosis of large intestine without perforation or abscess without bleeding (principal); K64.1 Second degree hemorrhoids; C50.411 Malignant neoplasm of upper-outer quadrant of right female breast; C54.1 Malignant neoplasm of endometrium; E11.40 Type 2 diabetes mellitus with diabetic neuropathy, unspecified; I10 Essential (primary) hypertension; Z87.19 Personal history of other diseases of the digestive system; Z17.0 Estrogen receptor positive status [ER+]; Z90.710 Acquired absence of both cervix and uterus; Z79.4 Long term (current) use of insulin; Z79.899 Other long term (current) drug therapy
CPT/HCPCS: 82962

== ENCOUNTER → 2017-12-28 | Outpatient (CLI) | payer MEDICARE, OTHER ==
[~2017-12-28] MED LIST changes: -RANI150T15 PO; +RANI150T46 PO
== END ==
LOC: WOUNDCARE 12:18
PROVIDERS: ATTEND Surgery
DX: L95.9 Vasculitis limited to the skin, unspecified (principal); L98.491 Non-pressure chronic ulcer of skin of other sites limited to breakdown of skin; L97.211 Non-pressure chronic ulcer of right calf limited to breakdown of skin; L97.221 Non-pressure chronic ulcer of left calf limited to breakdown of skin
CPT/HCPCS: 99214

== ENCOUNTER → 2018-01-18 | Outpatient (CLI) | payer MEDICARE, OTHER | LOC: WOUNDCARE 13:33 | PROVIDERS: ATTEND Surgery | DX: L95.9 Vasculitis limited to the skin, unspecified (principal); L98.491 Non-pressure chronic ulcer of skin of other sites limited to breakdown of skin; L97.211 Non-pressure chronic ulcer of right calf limited to breakdown of skin; L97.221 Non-pressure chronic ulcer of left calf limited to breakdown of skin | CPT/HCPCS: 99213 ==

== ENCOUNTER 2018-05-04 13:15 | Outpatient (RCR) | payer MEDICARE, OTHER ==
[2018-03-18 13:06] LABS: BASOPHILS % (AUTO) 0 % (0-10); EOSINOPHILS # (AUTO) 0.3 10^3/uL (0.0-0.3); EOSINOPHILS % (AUTO) 4 % (0-10); HEMATOCRIT 30 % (35-52); HEMOGLOBIN 9.8 G/DL (11.5-16.0); LYMPHOCYTES # (AUTO) 0.8 X 10^3 (1.0-4.0); LYMPHOCYTES % (AUTO) 13 % (12-44); MEAN CORPUSCULAR HEMOGLOBIN 32 PG (25-34); MEAN CORPUSCULAR HGB CONC 33 G/DL (32-36); MEAN CORPUSCULAR VOLUME 96 FL (80-99); MEAN PLATELET VOLUME 9.3 FL (7.4-10.4); MONOCYTES # (AUTO) 0.6 X 10^3 (0.0-1.0); MONOCYTES % (AUTO) 10 % (0-12); NEUTROPHILS # (AUTO) 4.5 X 10^3 (1.8-7.8); NEUTROPHILS % (AUTO) 73 % (42-75); PLATELET COUNT 274 10^3/uL (130-400); RED BLOOD COUNT 3.08 10^6/uL (4.35-5.85); RED CELL DISTRIBUTION WIDTH 13.4 % (10.0-14.5); WHITE BLOOD COUNT 6.2 10^3/uL (4.3-11.0)
[2018-03-18 13:27] LABS: ALBUMIN 3.8 GM/DL (3.2-4.5); BILIRUBIN,TOTAL 0.2 MG/DL (0.1-1.0); CALCIUM 9.7 MG/DL (8.5-10.1); CREATININE SERUM 1.56 MG/DL (0.60-1.30); TOTAL PROTEIN 6.6 GM/DL (6.4-8.2)
[2018-06-16 14:11] LABS: BASOPHILS % (AUTO) 1 % (0-10); EOSINOPHILS # (AUTO) 0.1 10^3/uL (0.0-0.3); EOSINOPHILS % (AUTO) 3 % (0-10); HEMATOCRIT 28 % (35-52); HEMOGLOBIN 9.8 G/DL (11.5-16.0); LYMPHOCYTES # (AUTO) 0.6 X 10^3 (1.0-4.0); LYMPHOCYTES % (AUTO) 12 % (12-44); MEAN CORPUSCULAR HEMOGLOBIN 32 PG (25-34); MEAN CORPUSCULAR HGB CONC 35 G/DL (32-36); MEAN CORPUSCULAR VOLUME 91 FL (80-99); MEAN PLATELET VOLUME 7.8 FL (7.4-10.4); MONOCYTES # (AUTO) 0.6 X 10^3 (0.0-1.0); MONOCYTES % (AUTO) 13 % (0-12); NEUTROPHILS # (AUTO) 3.2 X 10^3 (1.8-7.8); NEUTROPHILS % (AUTO) 71 % (42-75); PLATELET COUNT 275 10^3/uL (130-400); RED BLOOD COUNT 3.07 10^6/uL (4.35-5.85); RED CELL DISTRIBUTION WIDTH 13.1 % (10.0-14.5); WHITE BLOOD COUNT 4.5 10^3/uL (4.3-11.0)
[2018-06-16 14:31] LABS: ALBUMIN 3.9 GM/DL (3.2-4.5); BILIRUBIN,TOTAL 0.4 MG/DL (0.1-1.0); CALCIUM 9.4 MG/DL (8.5-10.1); CREATININE SERUM 1.02 MG/DL (0.60-1.30); POTASSIUM 4.8 MMOL/L (3.6-5.0); TOTAL PROTEIN 6.7 GM/DL (6.4-8.2)
== END 2018-06-16 13:45 | disposition home or self-care (01) ==
LOC: ONC 13:15
PROVIDERS: ATTEND Internal Medicine Hematology & Oncology
DX: C50.411 Malignant neoplasm of upper-outer quadrant of right female breast (principal); C54.1 Malignant neoplasm of endometrium; E11.319 Type 2 diabetes mellitus with unspecified diabetic retinopathy without macular edema; E11.40 Type 2 diabetes mellitus with diabetic neuropathy, unspecified; I10 Essential (primary) hypertension; E66.9 Obesity, unspecified; Z68.33 Body mass index [BMI] 33.0-33.9, adult; Z17.0 Estrogen receptor positive status [ER+]; R53.81 Other malaise; K63.9 Disease of intestine, unspecified; Z90.710 Acquired absence of both cervix and uterus; Z79.4 Long term (current) use of insulin; Z79.899 Other long term (current) drug therapy; Z45.2 Encounter for adjustment and management of vascular access device
CPT/HCPCS: 36591; 80053; 85025; 96523

== ENCOUNTER 2018-05-28 07:51 | Emergency (ER) | payer MEDICARE, OTHER ==
[~2018-05-28] VITALS: Ht 152.4 cm; Wt 77.1 kg
--- OUTSIDE RECORDS SUMMARY | 2018-05-28 08:03 | XMS REPORT | Continuity of Care Document ---
Author Author [facility] Organization [facility] Address Unknown Phone Unavailable Allergies Active Description Code Type Severity Reaction Onset Reported/Identified Relationship to Patient Clinical Status Yes LANOLIN 6227 Drug Allergy N/A N/A Yes LATEX Drug Allergy N/A N/A Yes LIPITOR [id number] Drug Allergy N/A N/A Yes STATINS Drug Allergy N/A N/A Yes SULFA Drug Allergy N/A N/A Yes metformin [id number] Drug Allergy Unknown N/A 12/23/2006 Yes miconazole [id number] Drug Allergy Moderate RASH 04/21/2017 Yes adhesive tape [id number] Drug Allergy Unknown N/A 04/21/2017 Yes ampicillin [id number] Drug Allergy Unknown N/A 04/21/2017 Yes lanolin [id number] Drug Allergy Unknown N/A 04/21/2017 Yes latex [id number] Drug Allergy Unknown N/A 04/21/2017 Yes Ncicrro-Dox-Veq Reductase Inhibitor [id number] Drug Allergy Unknown N/A 04/2017 Medications Medication Packaging Start Date Stop Date Route Dosage Sig LANTUS ML 07/05/2014 Subcutaneous [id number] at bedtime LYRICA 09/04/2014 ORAL 3030 at bedtime Problems Date Dx Coded Attending Type Code Diagnosis Diagnosed By 08/13/1029 FABIÁN POSADA MD, Ot 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 ENDOMETRIUM 08/13/1029 FABIÁN POSADA MD, Ot E11.319 TYPE 2 DIABETES W UNSP DIABETIC RTNOP W/ 08/13/1029 FABIÁN POSADA MD, Ot E66.01 MORBID (SEVERE) OBESITY DUE TO EXCESS CA 08/13/1029 FABIÁN POSADA MD, Ot 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, DEFINED IN [place] 08/13/1029 FABIÁN POSADA MD, Ot I10 ESSENTIAL (PRIMARY) HYPERTENSION 08/13/1029 FABIÁN POSADA MD, Ot R82.99 OTHER ABNORMAL FINDINGS IN URINE 08/13/1029 FABIÁN POSADA MD, Ot Z68.41 BODY MASS INDEX (BMI) 40.0-44.9, ADULT 08/13/1029 ALBINO FREY, FABIÁN Haines Ot Z79.4 SHELTER (CURRENT) USE OF INSULIN 08/13/1029 FABIÁN POSADA MD Ot Z79.899 OTHER SHELTER (CURRENT) DRUG THERAPY 08/13/1429 NII BORDEN Ot 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 08/13/1429 NII BORDEN Ot 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 ENDOMETRIUM 08/13/1429 NII BORDEN Ot E11.319 TYPE 2 DIABETES W UNSP DIABETIC RTNOP W/ 08/13/1429 NII BORDEN Ot E11.40 TYPE 2 DIABETES MELLITUS WITH DIABETIC N 08/13/1429 NII BORDEN Ot E66.9 OBESITY, UNSPECIFIED 08/13/1429 NII BORDEN Ot I10 ESSENTIAL (PRIMARY) HYPERTENSION 12/17/2014 VIRGILIO FREY, SANTIAGO Berkowitz Ot 372.30 CONJUNCTIVITIS NOS 12/17/2014 VIRGILIO FREY, SANTIAGO Berkowitz Ot 465.9 ACUTE URI NOS 12/17/2014 VIRGILIO FREY, SANTIAGO Berkowitz Ot 473.9 CHRONIC SINUSITIS NOS 12/17/2014 VIRGILIO FREY, SANTIAGO Berkowitz Ot 491.9 CHRONIC BRONCHITIS NOS 12/17/2014 VIRGILIO FREY, SANTIAGO Berkowitz Ot 786.05 SHORTNESS OF BREATH 03/28/2015 COLTHARP DO, MAYTE A Ot 250.82 03/28/2015 COLTHARP DO, MAYTE Garibay Ot 459.81 03/28/2015 COLTHARP DO, MAYTE [place] Ot 707.19 04/02/2015 COLTHARP DO, MAYTE A Ot 250.82 04/02/2015 COLTHARP DO, MAYTE A Ot 459.81 04/02/2015 COLTHARP DO, MAYTE A Ot 707.19 04/19/2015 COLTHARP DO, MAYTE A Ot 250.82 04/19/2015 COLTHARP DO, MAYTE A Ot 459.81 04/19/2015 COLTHARP DO, MAYTE Garibay Ot 707.19 04/27/2015 YANA BYRNES DO Ot 625.8 04/27/2015 YANA BYRNES DO Ot 627.1 05/04/2015 LY MORALES PET NUTRITION SPECIALIST Ot 553.1 05/04/2015 LY MORALES PET NUTRITION SPECIALIST Ot 562.10 05/15/2015 YANA BYRNES DO S Ot 625.8 05/15/2015 YANA BYRNES DO Ot 627.1 05/25/2015 COLTHARP DO, MAYTE A Ot 250.82 DIAB W OTH SPEC MANIFEST, TYPE II OR UNS 05/25/2015 COLARP DO, MAYTE A Ot 459.81 VENOUS INSUFFICIENCY NOS 05/25/2015 COLARP DO, MAYTE A Ot 707.19 ULCER OF OTHER PART OF LOWER LIMB 06/13/2015 FABIÁN POSADA MD Ot 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 06/13/2015 FABIÁN POSADA MD Ot 250.50 DIAB W OPHTHAL MANIFEST, TYPE II OR UNSP 06/13/2015 FABIÁN POSADA MD Ot 278.01 MORBID OBESITY 06/13/2015 FABIÁN POSADA MD Ot 362.01 DIABETIC RETINOPATHY NOS 06/13/2015 FABIÁN POSADA MD Ot 369.4 LEGAL BLINDNESS-[place] DEF 06/13/2015 FABIÁN POSADA MD Ot 401.9 HYPERTENSION NOS 06/13/2015 FABIÁN POSADA MD Ot V58.11 ENCOUNTER FOR ANTINEOPLASTIC CHEMOTHERAP 06/13/2015 FABIÁN POSADA MD Ot V58.67 LONG-TERM (CURRENT) USE OF INSULIN 06/13/2015 FABIÁN POSADA MD Ot V58.69 OT MED,LT,CURRENT USE 06/13/2015 FABIÁN POSADA MD Ot V85.41 BODY MASS INDEX 40.0-44.9, ADULT 06/20/2015 FABIÁN POSADA MD Ot 182.0 07/12/2015 FABIÁN POSADA MD Ot 182.0 07/12/2015 FABIÁN POSADA MD Ot 250.50 07/12/2015 FABIÁN POSADA MD Ot 278.01 07/12/2015 FABIÁN POSADA MD Ot 362.01 07/12/2015 FABIÁN POSADA MD Ot 369.4 07/12/2015 FABIÁN POSADA MD Ot 401.9 07/12/2015 FABIÁN POSADA MD Ot V58.67 07/12/2015 FABIÁN POSADA MD Ot V58.69 07/12/2015 FABIÁN POSADA MD Ot V85.41 08/06/2015 KAREN MORALES DO, Ot B96.89 OTH BACTERIAL AGENTS THE CAUSE OF DIS 08/06/2015 KAREN MORALES DO, Ot 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 ENDOMETRIUM 08/06/2015 KAREN MORALES DO, Ot E11.319 TYPE 2 DIABETES W UNSP DIABETIC RTNOP W08/06/2015 KAREN MORALES DO, Ot E11.649 TYPE 2 DIABETES MELLITUS WITH HYPOGLYCEM 08/06/2015 KAREN MORALES DO, Ot E11.65 TYPE 2 DIABETES MELLITUS WITH HYPERGLYCE 08/06/2015 KAREN MORALES DO, Ot E66.01 MORBID (SEVERE) OBESITY DUE TO EXCESS CA 08/06/2015 KAREN MORALES DO, Ot 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) 08/06/2015 KAREN MORALES DO, Ot 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, DEFINED IN [place] 08/06/2015 KAREN MORALES DO, Ot I10 ESSENTIAL (PRIMARY) HYPERTENSION 08/06/2015 KAREN MORALES DO, Ot I87.2 VENOUS INSUFFICIENCY (CHRONIC) (PERIPHER 08/06/2015 KAREN MORALES DO, Ot L59.8 OTH DISRD OF THE SKIN, SUBCU RELATED TO 08/06/2015 KAREN MORALES DO, Ot N30.01 ACUTE CYSTITIS WITH HEMATURIA 08/06/2015 KAREN MORALES DO, Ot R06.89 OTHER ABNORMALITIES OF BREATHING 08/06/2015 KAREN MORALES DO Ot R32 UNSPECIFIED URINARY INCONTINENCE 08/06/2015 KAREN MORALES DO, Ot T40.605A ADVERSE EFFECT OF UNSPECIFIED NARCOTICS, 08/06/2015 KAREN MORALES DO, Ot Y84.2 RADIOLOG PROC/RADIOTHRPY CAUSE ABN REACT 08/06/2015 KAREN MORALES DO, Ot Z68.42 BODY MASS INDEX (BMI) 45.0-49.9, ADULT 08/06/2015 KAREN MORALES DO, Ot Z79.4 SHELTER (CURRENT) USE OF INSULIN 09/12/2015 FABIÁN POSADA MD, Ot 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 ENDOMETRIUM 09/12/2015 FABIÁN POSADA MD Ot E11.319 TYPE 2 DIABETES W UNSP DIABETIC RTNOP W09/12/2015 FABIÁN POSADA MD, Ot E66.01 MORBID (SEVERE) OBESITY DUE TO EXCESS CA 09/12/2015 ALBINO FREY, FABIÁN Haines Ot 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, DEFINED IN [place] 09/12/2015 ALBINO FREY, FABIÁN Haines Ot I10 ESSENTIAL (PRIMARY) HYPERTENSION 09/12/2015 ALBINO FREY, FABIÁN Haines Ot Z51.0 ENCOUNTER FOR ANTINEOPLASTIC RADIATION T 09/12/2015 ALBINO FREY, FABIÁN Haines Ot Z68.41 BODY MASS INDEX (BMI) 40.0-44.9, ADULT 09/12/2015 FABIÁN POSADA MD Ot Z79.4 SHELTER (CURRENT) USE OF INSULIN 09/12/2015 FABIÁN POSADA MD Ot 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 09/24/2015 FABIÁN POSADA MD, Ot C54.1 09/24/2015 ALBINO FREY, FABIÁN Haines Ot E11.319 09/24/2015 FABIÁN POSADA MD Ot E66.01 09/24/2015 FABIÁN POSADA MD, Ot H54.8 09/24/2015 FABIÁN POSADA MD Ot I10 09/24/2015 ALBINO FREY, FABIÁN Haines Ot Z51.0 09/24/2015 FABIÁN POSADA MD Ot Z68.41 09/24/2015 FABIÁN POSADA MD, Ot Z79.4 09/24/2015 FABIÁN POSADA MD, Ot Z79.899 10/10/2015 [facility] Ot 250.82 10/10/2015 [facility] A Ot 459.81 10/10/2015 [facility] , MAYTE A Ot 707.19 10/10/2015 LY MORALES PET NUTRITION SPECIALIST Ot 553.1 10/10/2015 LY MORALES PET NUTRITION SPECIALIST Ot 562.10 10/10/2015 [facility] S Ot 625.8 10/10/2015 YANA BYRNES DO Ot 627.1 10/10/2015 ALBINO FREY, FABIÁN Haines Ot 182.0 10/10/2015 ALBINO FREY, FABIÁN Haines Ot C54.1 10/10/2015 ALBINO FREY, FABIÁN Haines Ot E11.319 10/10/2015 ALBINO FREY, FABIÁN Haines Ot E66.01 10/10/2015 ALBINO FREY, FABIÁN Haines Ot H54.8 10/10/2015 ALBINO FREY, FABIÁN Haines Ot I10 10/10/2015 ALBINO FREY, FABIÁN K Ot Z51.0 10/10/2015 ALBINO FREY, FABIÁN K Ot Z68.41 10/10/2015 ALBINO FREY, FABIÁN K Ot Z79.4 10/10/2015 ALBINO FREY, FABIÁN K Ot Z79.899 10/10/2015 TONY ANNETTE S PET NUTRITION SPECIALIST Ot C54.1 10/10/2015 JOHN JIMENEZNENA S PET NUTRITION SPECIALIST Ot E11.319 10/10/2015 JOHN JIMENEZNENA S PET NUTRITION SPECIALIST Ot E66.01 10/10/2015 JOHN JIMENEZNENA S PET NUTRITION SPECIALIST Ot H54.8 10/10/2015 TONY ANNETTE S PET NUTRITION SPECIALIST Ot I10 10/10/2015 JOHN JIMENEZNENA S PET NUTRITION SPECIALIST Ot Z68.41 10/10/2015 JOHN JIMENEZNENA S PET NUTRITION SPECIALIST Ot Z79.4 10/10/2015 TONY ANNETTE S PET NUTRITION SPECIALIST Ot Z79.899 10/10/2015 MARVEL FREY, TELMA Ot C54.1 10/10/2015 MARVEL FREY, TELMA Ot Z01.818 10/11/2015 MARVEL FREY, TELMA Ot 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 ENDOMETRIUM 10/11/2015 MARVEL FREY, TELMA Ot E11.9 TYPE 2 DIABETES MELLITUS WITHOUT COMPLIC 10/15/2015 ALBINO FREY, FABIÁN K Ot C54.1 10/18/2015 ALBINO FREY, FABIÁN K Ot C54.1 10/18/2015 ALBINO FREY, FABIÁN K Ot E11.319 10/18/2015 ALBINO FREY, FABIÁN K Ot E66.01 10/18/2015 ALBINO FREY, FABIÁN K Ot H54.8 10/18/2015 ALBINO FREY, FABIÁN K Ot I10 10/18/2015 ALBINO FREY, FABIÁN K Ot Z51.0 10/18/2015 ALBINO FREY, FABIÁN K Ot Z68.41 10/18/2015 ALBINO FREY, FABIÁN K Ot Z79.4 10/18/2015 ALBINO FREY, FABIÁN K Ot Z79.899 10/25/2015 ANNETTE JIMENEZ S PET NUTRITION SPECIALIST Ot C54.1 10/25/2015 JOHN JIMENEZNENA S PET NUTRITION SPECIALIST Ot E11.319 10/25/2015 ANNETTE JIMENEZ S PET NUTRITION SPECIALIST Ot E66.01 10/25/2015 ANNETTE JIMENEZ S PET NUTRITION SPECIALIST Ot H54.8 10/25/2015 ANNETTE JIMENEZ S PET NUTRITION SPECIALIST Ot I10 10/25/2015 TONYANNETTE PET NUTRITION SPECIALIST Ot Z68.41 10/25/2015 TONY ANNETTE Krueger PET NUTRITION SPECIALIST Ot Z79.4 10/25/2015 TONYANNETTE PET NUTRITION SPECIALIST Ot Z79.899 10/31/2015 ALBINO FREY, FABIÁN Haines Ot C54.1 11/07/2015 ALBINO FREY, FABIÁN Haines Ot C54.1 11/07/2015 ALBINO FREY, FABIÁN Haines Ot E11.319 11/07/2015 ALBINO FREY, FABIÁN Haines Ot E66.01 11/07/2015 ALBINO FREY, FABIÁN Haines Ot H54.8 11/07/2015 ALBINO FREY, FABIÁN Haines Ot I10 11/07/2015 ALBINO FREY, FABIÁN Haines Ot Z51.0 11/07/2015 ALBINO FREY, FABIÁN Haines Ot Z68.41 11/07/2015 ALBINO FREY, FABIÁN Yancy Ot Z79.4 11/07/2015 ALBINO FREY, FABIÁN Haines Ot Z79.899 11/15/2015 ALBINO FREY, FABIÁN Haines Ot C54.1 11/15/2015 ALBINO FREY, FABIÁN Haines Ot E11.319 11/15/2015 ALBINO FREY, FABIÁN Haines Ot E66.01 11/15/2015 ALBINO FREY, FABIÁN Haines Ot H54.8 11/15/2015 ALBINO FREY, FABIÁN Haines Ot I10 11/15/2015 ALBINO FREY, FABIÁN Haines Ot Z51.0 11/15/2015 ALBINO FREY, FABIÁN Haines Ot Z68.41 11/15/2015 ALBINO FREY, FABIÁN Haines Ot Z79.4 11/15/2015 ALBINO FREY, FABIÁN Haines Ot Z79.899 11/23/2015 ALBINO FREY, FABIÁN Haines Ot C54.1 11/23/2015 ALBINO FREY, FABIÁN Haines Ot E11.319 11/23/2015 ALBINO FREY, FABIÁN Haines Ot E66.01 11/23/2015 ALBINO FREY, FABIÁN Haines Ot H54.8 11/23/2015 ALBINO FREY, FABIÁN Haines Ot I10 11/23/2015 ALBINO FREY, FABIÁN Haines Ot Z51.0 11/23/2015 ALBINO FREY, FABIÁN Haines Ot Z68.41 11/23/2015 ALBINO FREY, FABIÁN Haines Ot Z79.4 11/23/2015 ALBINO FREY, FABIÁN Haines Ot Z79.899 11/26/2015 KAREN MORALES DO Ot R60.0 12/30/2015 FABIÁN POSADA MD, Ot 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 ENDOMETRIUM 12/30/2015 FABIÁN POSADA MD, Ot E11.319 TYPE 2 DIABETES W UNSP DIABETIC RTNOP W/ 12/30/2015 FABIÁN POSADA MD, Ot E66.01 MORBID (SEVERE) OBESITY DUE TO EXCESS CA 12/30/2015 FABIÁN POSADA MD, Ot 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, DEFINED IN [place] 12/30/2015 FABIÁN POSADA MD, Ot I10 ESSENTIAL (PRIMARY) HYPERTENSION 12/30/2015 FABIÁN POSADA MD, Ot Z51.0 ENCOUNTER FOR ANTINEOPLASTIC RADIATION T 12/30/2015 FABIÁN POSADA MD, Ot Z51.11 ENCOUNTER FOR ANTINEOPLASTIC CHEMOTHERAP 12/30/2015 FABIÁN POSADA MD, Ot Z68.41 BODY MASS INDEX (BMI) 40.0-44.9, ADULT 12/30/2015 FABIÁN POSADA MD, Ot Z79.4 SHELTER (CURRENT) USE OF INSULIN 12/30/2015 FABIÁN POSADA MD, Ot 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 12/31/2015 FABIÁN POSADA MD, Ot 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 ENDOMETRIUM 12/31/2015 FABIÁN POSADA MD, Ot E11.319 TYPE 2 DIABETES W UNSP DIABETIC RTNOP W/ 12/31/2015 FABIÁN POSADA MD, Ot E66.01 MORBID (SEVERE) OBESITY DUE TO EXCESS CA 12/31/2015 FABIÁN POSADA MD, Ot 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, DEFINED IN [place] 12/31/2015 FABIÁN POSADA MD, Ot I10 ESSENTIAL (PRIMARY) HYPERTENSION 12/31/2015 FABIÁN POSADA MD, Ot Z51.11 ENCOUNTER FOR ANTINEOPLASTIC CHEMOTHERAP 12/31/2015 FABIÁN POSADA MD, Ot Z68.41 BODY MASS INDEX (BMI) 40.0-44.9, ADULT 12/31/2015 FABIÁN POSADA MD Ot Z79.4 SHELTER (CURRENT) USE OF INSULIN 12/31/2015 FABIÁN POSADA MD, Ot Z79.899 OTHER SHELTER (CURRENT) DRUG THERAPY 12/31/2015 FABIÁN POSADA MD, Ot 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 ENDOMETRIUM 12/31/2015 FABIÁN POSADA MD, Ot E11.319 TYPE 2 DIABETES W UNSP DIABETIC RTNOP W/ 12/31/2015 FABIÁN POSADA MD, Ot E66.01 MORBID (SEVERE) OBESITY DUE TO EXCESS CA 12/31/2015 FABIÁN POSADA MD, Ot 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, DEFINED IN [place] 12/31/2015 FABIÁN POSADA MD, Ot I10 ESSENTIAL (PRIMARY) HYPERTENSION 12/31/2015 FABIÁN POSADA MD, Ot Z51.0 ENCOUNTER FOR ANTINEOPLASTIC RADIATION T 12/31/2015 FABIÁN POSADA MD, Ot Z68.41 BODY MASS INDEX (BMI) 40.0-44.9, ADULT 12/31/2015 FABIÁN POSADA MD, Ot Z79.4 SHELTER (CURRENT) USE OF INSULIN 12/31/2015 FABIÁN POSADA MD, Ot Z79.899 OTHER SHELTER (CURRENT) DRUG THERAPY 01/04/2016 YANA HODGSON MD Ot E11.622 TYPE 2 DIABETES MELLITUS WITH OTHER SKIN 01/04/2016 YANA HODGSON MD, Ot I89.0 LYMPHEDEMA, NOT ELSEWHERE CLASSIFIED 01/04/2016 YANA HODGSON MD Ot L97.221 NON-PRS CHRONIC ULCER OF LEFT CALF LIMIT 01/09/2016 YANA HODGSON MD, Ot E11.622 TYPE 2 DIABETES MELLITUS WITH OTHER SKIN 01/09/2016 YANA HODGSON MD, Ot I89.0 LYMPHEDEMA, NOT ELSEWHERE CLASSIFIED 01/09/2016 YANA HODGSON MD Ot L97.221 NON-PRS CHRONIC ULCER OF LEFT CALF LIMIT 01/10/2016 FABIÁN POSADA MD, Ot 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 ENDOMETRIUM 01/10/2016 FABIÁN POSADA MD Ot E11.319 TYPE 2 DIABETES W UNSP DIABETIC RTNOP W/ 01/10/2016 FABIÁN POSADA MD, Ot E66.01 MORBID (SEVERE) OBESITY DUE TO EXCESS CA 01/10/2016 FABIÁN POSADA MD, Ot 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, DEFINED IN [place] 01/10/2016 FABIÁN POSADA MD, Ot I10 ESSENTIAL (PRIMARY) HYPERTENSION 01/10/2016 FABIÁN POSADA MD, Ot Z51.0 ENCOUNTER FOR ANTINEOPLASTIC RADIATION T 01/10/2016 FABIÁN POSADA MD, Ot Z68.41 BODY MASS INDEX (BMI) 40.0-44.9, ADULT 01/10/2016 FABIÁN POSADA MD, Ot Z79.4 SHELTER (CURRENT) USE OF INSULIN 01/10/2016 FABIÁN POSADA MD, Ot 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 01/14/2016 FABIÁN POSADA MD Ot R06.02 SHORTNESS OF BREATH 01/16/2016 FABIÁN POSADA MD, Ot R06.02 SHORTNESS OF BREATH 01/16/2016 FABIÁN POSADA MD, Ot R06.02 SHORTNESS OF BREATH 01/16/2016 FABIÁN POSADA MD, Ot 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 ENDOMETRIUM 01/21/2016 FABIÁN POSADA MD, Ot 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 ENDOMETRIUM 01/31/2016 FABIÁN POSADA MD, Ot R06.02 SHORTNESS OF BREATH 01/31/2016 FABIÁN POSADA MD, Ot 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 ENDOMETRIUM 01/31/2016 FABIÁN POSADA MD, Ot E11.319 TYPE 2 DIABETES W UNSP DIABETIC RTNOP W/ 01/31/2016 FABIÁN POSADA MD, Ot E66.01 MORBID (SEVERE) OBESITY DUE TO EXCESS CA 01/31/2016 FABIÁN POSADA MD, Ot 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, DEFINED IN [place] 01/31/2016 FABIÁN POSADA MD, Ot I10 ESSENTIAL (PRIMARY) HYPERTENSION 01/31/2016 FABIÁN POSADA MD, Ot Z51.0 ENCOUNTER FOR ANTINEOPLASTIC RADIATION T 01/31/2016 FABIÁN POSADA MD, Ot Z68.41 BODY MASS INDEX (BMI) 40.0-44.9, ADULT 01/31/2016 FABIÁN POSADA MD, Ot Z79.4 LOAN REVIEW ANALYST (CURRENT) USE OF INSULIN 01/31/2016 FABIÁN POSADA MD, Ot 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 02/05/2016 FABIÁN POSADA MD, Ot 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 ENDOMETRIUM 03/17/2016 HUGH MCCULLOUGH DO, Ot 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 ENDOMETRIUM 03/17/2016 HUGH MCCULLOUGH DO, Ot 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 03/17/2016 HGUH MCCULLOUGH DO, Ot E11.649 TYPE 2 DIABETES MELLITUS WITH HYPOGLYCEM 03/17/2016 HUGH MCCULLOUGH DO, Ot E66.9 OBESITY, UNSPECIFIED 03/17/2016 HUGH MCCULLOUGH DO, Ot N39.0 URINARY TRACT INFECTION, SITE NOT SPECIF 03/17/2016 HUGH MCCULLOUGH DO, Ot Z79.4 SHELTER (CURRENT) USE OF INSULIN 03/17/2016 HUGH MCCULLOUGH DO, Ot 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 03/20/2016 JAMEL DO, HUGH K Ot 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 ENDOMETRIUM 03/20/2016 JAMEL DO, HUGH K Ot 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 03/20/2016 JAMEL DO HUGH K Ot E11.649 TYPE 2 DIABETES MELLITUS WITH HYPOGLYCEM 03/20/2016 JAMEL DO, HUGH K Ot E66.9 OBESITY, UNSPECIFIED 03/20/2016 JAMEL DO, HUGH K Ot N39.0 URINARY TRACT INFECTION, SITE NOT SPECIF 03/20/2016 JAMEL DO HUGH K Ot Z79.4 LOAN REVIEW ANALYST (CURRENT) USE OF INSULIN 03/20/2016 JAMEL DO, HUGH K Ot Z79.899 OTHER SHELTER (CURRENT) DRUG THERAPY 03/20/2016 JAMEL DO, HUGH K Ot 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 ENDOMETRIUM 03/20/2016 JAMEL DO, HUGH K Ot 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 03/20/2016 JAMEL DO, HUGH K Ot E11.649 TYPE 2 DIABETES MELLITUS WITH HYPOGLYCEM 03/20/2016 JAMEL DO, HUGH K Ot E66.9 OBESITY, UNSPECIFIED 03/20/2016 JAMEL DO, HUGH K Ot N39.0 URINARY TRACT INFECTION, SITE NOT SPECIF 03/20/2016 JAMEL DO, HUGH K Ot Z79.4 LOAN REVIEW ANALYST (CURRENT) USE OF INSULIN 03/20/2016 JAMEL DO, HUGH K Ot Z79.899 OTHER SHELTER (CURRENT) DRUG THERAPY 03/20/2016 MAYTE COUCH DO Ot 250.82 DIAB W OTH SPEC MANIFEST, TYPE II OR UNS 03/20/2016 MAYTE COUCH DO Ot 459.81 VENOUS INSUFFICIENCY NOS 03/20/2016 MAYTE COUCH DO Ot 707.19 ULCER OF OTHER PART OF LOWER LIMB 03/20/2016 LY MORALES PET NUTRITION SPECIALIST Ot 553.1 UMBILICAL HERNIA 03/20/2016 LY MORALES PET NUTRITION SPECIALIST Ot 562.10 DIVERTICULOSIS COLON (W/O MENT OF HEMORR 03/20/2016 YANA BYRNES DO Ot 625.8 FEM GENITAL SYMPTOMS NEC 03/20/2016 YANA BYRNES DO Ot 627.1 POSTMENOPAUSAL BLEEDING 03/20/2016 ALBINO FREY, FABIÁN Haines Ot 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 03/20/2016 FABIÁN POSADA MD, Ot 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 ENDOMETRIUM 03/20/2016 JIMENEZANNETTE DEXTER Ot 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 ENDOMETRIUM 03/20/2016 JIMENEZ ANNETTE Krueger DEXTER Ot E11.319 TYPE 2 DIABETES W [facility] DIABETIC RTNOP W/ 03/20/2016 JIMENEZANNETTE Krueger DEXTER Ot E66.01 MORBID (SEVERE) OBESITY DUE TO EXCESS CA 03/20/2016 JIMENEZ ANNETTE Krueger DEXTER Ot 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, DEFINED IN [place] 03/20/2016 ANNETTE JIMENEZ Ot I10 ESSENTIAL (PRIMARY) HYPERTENSION 03/20/2016 TONY ANNETTE Krueger DEXTER Ot Z68.41 BODY MASS INDEX (BMI) 40.0-44.9, ADULT 03/20/2016 JOHN JIMENEZNENA Krueger DEXTER Ot Z79.4 SHELTER (CURRENT) USE OF INSULIN 03/20/2016 JOHN JIMENEZNENA Krueger DEXTER Ot 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 03/20/2016 TELMA GRIER MD Ot 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 ENDOMETRIUM 03/20/2016 TELMA GRIER MD Ot Z01.818 ENCOUNTER FOR OTHER PREPROCEDURAL EXAMIN 03/20/2016 KAREN MORALES DO Ot R60.0 LOCALIZED EDEMA 03/20/2016 FABIÁN POSADA MD, Ot 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 ENDOMETRIUM 03/20/2016 FABIÁN POSADA MD Ot E11.319 TYPE 2 DIABETES W [facility] DIABETIC RTNOP W/ 03/20/2016 FABIÁN POSADA MD, Ot E66.01 MORBID (SEVERE) OBESITY DUE TO EXCESS CA 03/20/2016 FABIÁN POSADA MD Ot 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, DEFINED IN [place] 03/20/2016 FABIÁN POSADA MD Ot I10 ESSENTIAL (PRIMARY) HYPERTENSION 03/20/2016 FABIÁN POSADA MD Ot Z51.0 ENCOUNTER FOR ANTINEOPLASTIC RADIATION T 03/20/2016 FABIÁN POSADA MD Ot Z68.41 BODY MASS INDEX (BMI) 40.0-44.9, ADULT 03/20/2016 FABIÁN POSADA MD Ot Z79.4 LOAN REVIEW ANALYST (CURRENT) USE OF INSULIN 03/20/2016 FABIÁN POSADA MD Ot 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 03/20/2016 FABIÁN POSADA MD, Ot R06.02 SHORTNESS OF BREATH 03/20/2016 FABIÁN PSOADA MD, Ot 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 ENDOMETRIUM 03/20/2016 JAMEL HUGH BAEZ Ot 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 ENDOMETRIUM 03/20/2016 JAMEL HUGH K Ot 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 03/20/2016 JAMEL DELMI BAEZA K Ot E11.649 TYPE 2 DIABETES MELLITUS WITH HYPOGLYCEM 03/20/2016 JAMEL DELMI BAEZA K Ot E66.9 OBESITY, UNSPECIFIED 03/20/2016 JAMEL DELMI BAEZA K Ot N39.0 URINARY TRACT INFECTION, SITE NOT SPECIF 03/20/2016 JAMEL HUGH BAEZ K Ot Z79.4 SHELTER (CURRENT) USE OF INSULIN 03/20/2016 HUGH MCCULLOUGH DO K Ot Z79.899 OTHER SHELTER (CURRENT) DRUG THERAPY 03/24/2016 FABIÁN POSADA MD, Ot 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 ENDOMETRIUM 03/24/2016 FABIÁN POSADA MD, Ot E11.319 TYPE 2 DIABETES W [facility] DIABETIC RTNOP W03/24/2016 FABIÁN POSADA MD, Ot E66.01 MORBID (SEVERE) OBESITY DUE TO EXCESS CA 03/24/2016 FABIÁN POSADA MD, Ot 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, [place]FINED [place] 03/24/2016 FABIÁN POSADA MD, Ot I10 ESSENTIAL (PRIMARY) HYPERTENSION 03/24/2016 FABIÁN POSADA MD, Ot Z51.0 ENCOUNTER FOR ANTINEOPLASTIC RADIATION T 03/24/2016 FABIÁN POSADA MD, Ot Z68.41 BODY MASS INDEX (BMI) 40.0-44.9, ADULT 03/24/2016 FABIÁN POSADA MD, Ot Z79.4 SHELTER (CURRENT) USE OF INSULIN 03/24/2016 FABIÁN POSADA MD, Ot 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 04/02/2016 FABIÁN POSADA MD, Ot 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 ENDOMETRIUM 04/02/2016 FABIÁN POSADA MD, Ot E11.319 TYPE 2 DIABETES W UNSP DIABETIC RTNOP W04/02/2016 FABIÁN POSADA MD, Ot E66.01 MORBID (SEVERE) OBESITY DUE TO EXCESS CA 04/02/2016 FABIÁN POSADA MD, Ot 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, [place]FINED [place] 04/02/2016 FABIÁN POSADA MD, Ot I10 ESSENTIAL (PRIMARY) HYPERTENSION 04/02/2016 FABIÁN POSADA MD, Ot R82.90 UNSPECIFIED ABNORMAL FINDINGS IN URINE 04/02/2016 FABIÁN POSADA MD, Ot R82.99 OTHER ABNORMAL FINDINGS IN URINE 04/02/2016 FABIÁN POSADA MD, Ot Z51.11 ENCOUNTER FOR ANTINEOPLASTIC CHEMOTHERAP 04/02/2016 FABIÁN POSADA MD, Ot Z68.41 BODY MASS INDEX (BMI) 40.0-44.9, ADULT 04/02/2016 FABIÁN POSADA MD, Ot Z79.4 LOAN REVIEW ANALYST (CURRENT) USE OF INSULIN 04/02/2016 FABIÁN POSADA MD, Ot 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 04/09/2016 JAMEL DO HUGH K Ot 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 ENDOMETRIUM 04/09/2016 JAMELRaleigh BAEZ HUGH K Ot 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 04/09/2016 JAMEL DO HUGH K Ot E11.649 TYPE 2 DIABETES MELLITUS WITH HYPOGLYCEM 04/09/2016 JAMEL BAEZ HUGH K Ot E66.9 OBESITY, UNSPECIFIED 04/09/2016 JAMEL DO HUGH K Ot N39.0 URINARY TRACT INFECTION, SITE NOT SPECIF 04/09/2016 JAMEL DO HUGH K Ot Z79.4 LOAN REVIEW ANALYST (CURRENT) USE OF INSULIN 04/09/2016 JAMEL BAEZ HUGH K Ot Z79.899 OTHER SHELTER (CURRENT) DRUG THERAPY 04/10/2016 FABIÁN POSADA MD, Ot 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 ENDOMETRIUM 04/10/2016 FABIÁN POSADA MD, Ot E11.319 TYPE 2 DIABETES W UNSP DIABETIC RTNOP W/ 04/10/2016 FABIÁN POSADA MD, Ot E66.01 MORBID (SEVERE) OBESITY DUE TO EXCESS CA 04/10/2016 FABIÁN POSADA MD, Ot 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, [place]FINED [place] 04/10/2016 FABIÁN POSADA MD, Ot I10 ESSENTIAL (PRIMARY) HYPERTENSION 04/10/2016 FABIÁN POSADA MD, Ot R82.99 OTHER ABNORMAL FINDINGS IN URINE 04/10/2016 FABIÁN POSADA MD, Ot Z51.11 ENCOUNTER FOR ANTINEOPLASTIC CHEMOTHERAP 04/10/2016 FABIÁN POSADA MD, Ot Z68.41 BODY MASS INDEX (BMI) 40.0-44.9, ADULT 04/10/2016 FABIÁN POSADA MD Ot Z79.4 LOAN REVIEW ANALYST (CURRENT) USE OF INSULIN 04/10/2016 FABIÁN POSADA MD Ot Z79.899 OTHER SHELTER (CURRENT) DRUG THERAPY 04/10/2016 COLYI BAEZ MAYTE Garibay Ot 250.82 DIAB W OTH SPEC MANIFEST, TYPE II OR UNS 04/10/2016 COLTHARP MAYTE A Ot 459.81 VENOUS INSUFFICIENCY NOS 04/10/2016 COLTAYLORARP DO MAYTE Garibay Ot 707.19 ULCER OF OTHER PART OF LOWER LIMB 04/10/2016 LY MORALES PET NUTRITION SPECIALIST Ot 553.1 UMBILICAL HERNIA 04/10/2016 LY MORALES PET NUTRITION SPECIALIST Ot 562.10 DIVERTICULOSIS COLON (W/O MENT OF HEMORR 04/10/2016 YANA BYRNES DO Ot 625.8 FEM GENITAL SYMPTOMS NEC 04/10/2016 YANA BYRNES DO Ot 627.1 POSTMENOPAUSAL BLEEDING 04/10/2016 FABIÁN POSADA MD Ot 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 04/10/2016 FABIÁN POSADA MD Ot 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 ENDOMETRIUM 04/10/2016 ANNETTE JIMENEZ Ot 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 ENDOMETRIUM 04/10/2016 ANNETTE JIMENEZ Ot E11.319 TYPE 2 DIABETES W UNSP DIABETIC RTNOP W/ 04/10/2016 ANNETTE JIMENEZP Ot E66.01 MORBID (SEVERE) OBESITY DUE TO EXCESS CA 04/10/2016 ANNETTE JIMENEZP Ot 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, DEFINED [place] 04/10/2016 ANNETTE JIMENEZP Ot I10 ESSENTIAL (PRIMARY) HYPERTENSION 04/10/2016 ANNETTE JIMENEZP Ot Z68.41 BODY MASS INDEX (BMI) 40.0-44.9, ADULT 04/10/2016 ANNETTE JIMENEZ Ot Z79.4 LOAN REVIEW ANALYST (CURRENT) USE OF INSULIN 04/10/2016 ANNETTE JIMENEZP Ot Z79.899 OTHER SHELTER (CURRENT) DRUG THERAPY 04/10/2016 TELMA GRIER MD Ot 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 ENDOMETRIUM 04/10/2016 TELMA GRIER MD Ot Z01.818 ENCOUNTER FOR OTHER PREPROCEDURAL EXAMIN 04/10/2016 KARNE MORALES DO Ot R60.0 LOCALIZED EDEMA 04/10/2016 FABIÁN POSADA MD, Ot R06.02 SHORTNESS OF BREATH 04/10/2016 FABIÁN POSADA MD, Ot 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 ENDOMETRIUM 04/10/2016 HUGH MCCULLOUGH DO, Ot 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 ENDOMETRIUM 04/10/2016 HUGH MCCULLOUGH DO Ot 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 04/10/2016 HUGH MCCULLOUGH DO Ot E11.649 TYPE 2 DIABETES MELLITUS WITH HYPOGLYCEM 04/10/2016 HUGH MCCULLOUGH DO Ot E66.9 OBESITY, UNSPECIFIED 04/10/2016 HUGH MCCULLOUGH DO Ot N39.0 URINARY TRACT INFECTION, SITE NOT SPECIF 04/10/2016 HUGH MCCULLOUGH DO, Ot Z79.4 LOAN REVIEW ANALYST (CURRENT) USE OF INSULIN 04/10/2016 HUGH MCCULLOUGH DO, Ot 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 04/10/2016 FABIÁN POSADA MD, Ot 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 ENDOMETRIUM 04/10/2016 FABIÁN POSADA MD, Ot E11.319 TYPE 2 DIABETES W UNSP DIABETIC RTNOP W/ 04/10/2016 FABIÁN POSADA MD, Ot E66.01 MORBID (SEVERE) OBESITY DUE TO EXCESS CA 04/10/2016 FABIÁN POSADA MD, Ot 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, DEFINED IN [place] 04/10/2016 FABIÁN POSADA MD Ot I10 ESSENTIAL (PRIMARY) HYPERTENSION 04/10/2016 FABIÁN POSADA MD, Ot R82.99 OTHER ABNORMAL FINDINGS IN URINE 04/10/2016 FABIÁN POSADA MD, Ot Z51.11 ENCOUNTER FOR ANTINEOPLASTIC CHEMOTHERAP 04/10/2016 FABIÁN POSADA MD, Ot Z68.41 BODY MASS INDEX (BMI) 40.0-44.9, ADULT 04/10/2016 FABIÁN POSADA MD, Ot Z79.4 SHELTER (CURRENT) USE OF INSULIN 04/10/2016 FABIÁN POSADA MD, Ot Z79.899 OTHER SHELTER (CURRENT) DRUG THERAPY 04/24/2016 KAREN MORALES DO Ot R19.7 DIARRHEA, UNSPECIFIED 05/07/2016 KAREN MORALES DO, Ot R19.7 DIARRHEA, UNSPECIFIED 05/07/2016 FABIÁN POSADA MD, Ot 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 ENDOMETRIUM 05/07/2016 FABIÁN POSADA MD, Ot E11.319 TYPE 2 DIABETES W [facility] DIABETIC RTNOP W/ 05/07/2016 FABIÁN POSADA MD, Ot E66.01 MORBID (SEVERE) OBESITY DUE TO EXCESS CA 05/07/2016 FABIÁN POSADA MD, Ot 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, [place]FINED [place] 05/07/2016 FABIÁN POSADA MD, Ot I10 ESSENTIAL (PRIMARY) HYPERTENSION 05/07/2016 FABIÁN POSADA MD, Ot R82.99 OTHER ABNORMAL FINDINGS IN URINE 05/07/2016 FABIÁN POSADA MD, Ot Z51.11 ENCOUNTER FOR ANTINEOPLASTIC CHEMOTHERAP 05/07/2016 FABIÁN POSADA MD, Ot Z68.41 BODY MASS INDEX (BMI) 40.0-44.9, ADULT 05/07/2016 FABIÁN POSADA MD, Ot Z79.4 SHELTER (CURRENT) USE OF INSULIN 05/07/2016 FABIÁN POSADA MD, Ot 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 05/07/2016 FABIÁN POSADA MD, Ot 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 ENDOMETRIUM 05/07/2016 FABIÁN POSADA MD, Ot E11.319 TYPE 2 DIABETES W [facility] DIABETIC RTNOP W/ 05/07/2016 FABIÁN POSADA MD, Ot E66.01 MORBID (SEVERE) OBESITY DUE TO EXCESS CA 05/07/2016 FABIÁN POSADA MD, Ot 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, [place]FINED IN [place] 05/07/2016 FABIÁN POSADA MD, Ot I10 ESSENTIAL (PRIMARY) HYPERTENSION 05/07/2016 FABIÁN POSADA MD, Ot R82.99 OTHER ABNORMAL FINDINGS IN URINE 05/07/2016 FABIÁN POSADA MD, Ot Z51.11 ENCOUNTER FOR ANTINEOPLASTIC CHEMOTHERAP 05/07/2016 FABIÁN POSADA MD, Ot Z68.41 BODY MASS INDEX (BMI) 40.0-44.9, ADULT 05/07/2016 FABIÁN POSADA MD, Ot Z79.4 LOAN REVIEW ANALYST (CURRENT) USE OF INSULIN 05/07/2016 FABIÁN POSADA MD, Ot 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 05/09/2016 KAREN MORALES DO Ot R19.7 DIARRHEA, UNSPECIFIED 05/26/2016 KAREN MORALES DO Ot R19.7 DIARRHEA, UNSPECIFIED 06/10/2016 FABIÁN POSADA MD, Ot 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 ENDOMETRIUM 06/10/2016 FABIÁN POSADA MD Ot E11.319 TYPE 2 DIABETES W [facility] DIABETIC RTNOP W/ 06/10/2016 FABIÁN POSADA MD, Ot E66.01 MORBID (SEVERE) OBESITY DUE TO EXCESS CA 06/10/2016 FABIÁN POSADA MD, Ot 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, [place]FINED [place] 06/10/2016 FABIÁN POSADA MD, Ot I10 ESSENTIAL (PRIMARY) HYPERTENSION 06/10/2016 FABIÁN POSADA MD, Ot R82.99 OTHER ABNORMAL FINDINGS IN URINE 06/10/2016 FABIÁN POSADA MD, Ot Z68.41 BODY MASS INDEX (BMI) 40.0-44.9, ADULT 06/10/2016 FABIÁN POSADA MD, Ot Z79.4 LOAN REVIEW ANALYST (CURRENT) USE OF INSULIN 06/10/2016 FABIÁN POSADA MD, Ot 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 06/13/2016 KAREN MORALES DO Ot R30.0 DYSURIA 06/23/2016 FABIÁN POSADA MD, Ot 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 ENDOMETRIUM 06/23/2016 FABIÁN POSADA MD Ot E11.319 TYPE 2 DIABETES W [facility] DIABETIC RTNOP W06/23/2016 FABIÁN POSADA MD, Ot E66.01 MORBID (SEVERE) OBESITY DUE TO EXCESS CA 06/23/2016 FABIÁN POSADA MD, Ot 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, [place]FINED [place] 06/23/2016 FABIÁN POSADA MD, Ot I10 ESSENTIAL (PRIMARY) HYPERTENSION 06/23/2016 FABIÁN POSADA MD, Ot R82.99 OTHER ABNORMAL FINDINGS IN URINE 06/23/2016 FABIÁN POSADA MD, Ot Z68.41 BODY MASS INDEX (BMI) 40.0-44.9, ADULT 06/23/2016 FABIÁN POSADA MD, Ot Z79.4 LOAN REVIEW ANALYST (CURRENT) USE OF INSULIN 06/23/2016 FABIÁN POSADA MD, Ot 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 06/23/2016 KAREN MORALES DO, Ot R30.0 DYSURIA 07/10/2016 MAYTE COUCH DO A Ot 250.82 DIAB W OTH SPEC MANIFEST, TYPE II OR UNS 07/10/2016 COLMAYTE RICHMOND DO Ot 459.81 VENOUS INSUFFICIENCY NOS 07/10/2016 COLTHARP DO, MAYTE A Ot 707.19 ULCER OF OTHER PART OF LOWER LIMB 07/10/2016 CARMEN LY Allen PET NUTRITION SPECIALIST Ot 553.1 UMBILICAL HERNIA 07/10/2016 LY MORALES PET NUTRITION SPECIALIST Ot 562.10 DIVERTICULOSIS COLON (W/O MENT OF HEMORR 07/10/2016 SONIYA DO YANA Pati Ot 625.8 FEM GENITAL SYMPTOMS NEC 07/10/2016 ALMAYANA ABBASI DO Ot 627.1 POSTMENOPAUSAL BLEEDING 07/10/2016 FABIÁN POSADA MD Ot 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 07/10/2016 FABIÁN POSADA MD Ot 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 ENDOMETRIUM 07/10/2016 ANNETTE JIMENEZ Ot 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 ENDOMETRIUM 07/10/2016 ANNETTE JIMENEZ Ot E11.319 TYPE 2 DIABETES W UNSP DIABETIC RTNOP W/ 07/10/2016 ANNETTE JIMENEZ Ot E66.01 MORBID (SEVERE) OBESITY DUE TO EXCESS CA 07/10/2016 ANNETTE JIMENEZ Ot 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, [place]FINED [place] 07/10/2016 ANNETTE JIMENEZ Ot I10 ESSENTIAL (PRIMARY) HYPERTENSION 07/10/2016 ANNETTE JIMENEZ Ot Z68.41 BODY MASS INDEX (BMI) 40.0-44.9, ADULT 07/10/2016 ANNETTE JIMENEZ Ot Z79.4 LOAN REVIEW ANALYST (CURRENT) USE OF INSULIN 07/10/2016 ANNETTE JIMENEZ Ot Z79.899 OTHER SHELTER (CURRENT) DRUG THERAPY 07/10/2016 TELMA GRIER MD Ot 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 ENDOMETRIUM 07/10/2016 TELMA GRIER MD Ot Z01.818 ENCOUNTER FOR OTHER PREPROCEDURAL EXAMIN 07/10/2016 KAREN MORALES DO Ot R60.0 LOCALIZED EDEMA 07/10/2016 FABIÁN POSADA MD Ot R06.02 SHORTNESS OF BREATH 07/10/2016 FABIÁN POSADA MD Ot 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 ENDOMETRIUM 07/10/2016 KAREN MORALES DO Ot R19.7 DIARRHEA, UNSPECIFIED 07/10/2016 KAREN MORALES DO Ot R30.0 DYSURIA 07/10/2016 FABIÁN POSADA MD, Ot 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 ENDOMETRIUM 07/10/2016 FABIÁN POSADA MD Ot E11.319 TYPE 2 DIABETES W UNSP DIABETIC RTNOP W/ 07/10/2016 FABIÁN POSADA MD, Ot E66.01 MORBID (SEVERE) OBESITY DUE TO EXCESS CA 07/10/2016 FABIÁN POSADA MD Ot 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, [place]FINED IN [place] 07/10/2016 FABIÁN POSADA MD Ot I10 ESSENTIAL (PRIMARY) HYPERTENSION 07/10/2016 FABIÁN POSADA MD Ot R82.99 OTHER ABNORMAL FINDINGS IN URINE 07/10/2016 FABIÁN POSADA MD, Ot Z68.41 BODY MASS INDEX (BMI) 40.0-44.9, ADULT 07/10/2016 FABIÁN POSADA MD, Ot Z79.4 LOAN REVIEW ANALYST (CURRENT) USE OF INSULIN 07/10/2016 FABIÁN POSADA MD, Ot Z79.899 OTHER SHELTER (CURRENT) DRUG THERAPY 07/10/2016 KAREN MORALES DO Ot R30.0 DYSURIA 07/11/2016 FABIÁN POSADA MD, Ot 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 ENDOMETRIUM 07/11/2016 FABIÁN POSADA MD, Ot 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 ENDOMETRIUM 07/11/2016 FABIÁN POSADA MD, Ot E11.319 TYPE 2 DIABETES W UNSP DIABETIC RTNOP W/ 07/11/2016 FABIÁN POSADA MD, Ot E66.01 MORBID (SEVERE) OBESITY DUE TO EXCESS CA 07/11/2016 FABIÁN POSADA MD, Ot 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, [place]FINED [place] 07/11/2016 FABIÁN POSADA MD Ot I10 ESSENTIAL (PRIMARY) HYPERTENSION 07/11/2016 FABIÁN POSADA MD, Ot R82.99 OTHER ABNORMAL FINDINGS IN URINE 07/11/2016 FABIÁN POSADA MD, Ot Z68.41 BODY MASS INDEX (BMI) 40.0-44.9, ADULT 07/11/2016 FABIÁN POSADA MD Ot Z79.4 LOAN REVIEW ANALYST (CURRENT) USE OF INSULIN 07/11/2016 FABIÁN POSADA MD, Ot Z79.899 OTHER SHELTER (CURRENT) DRUG THERAPY 08/01/2016 FABIÁN POSADA MD, Ot 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 ENDOMETRIUM 08/13/2016 FABIÁN POSADA MD, Ot 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 ENDOMETRIUM 08/13/2016 FABIÁN POSADA MD Ot E11.319 TYPE 2 DIABETES W UNSP DIABETIC RTNOP W/ 08/13/2016 FABIÁN POSADA MD Ot E66.01 MORBID (SEVERE) OBESITY DUE TO EXCESS CA 08/13/2016 FABIÁN POSADA MD, Ot 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, [place]FINED IN [place] 08/13/2016 FABIÁN POSADA MD, Ot I10 ESSENTIAL (PRIMARY) HYPERTENSION 08/13/2016 FABIÁN POSADA MD Ot R82.99 OTHER ABNORMAL FINDINGS IN URINE 08/13/2016 FABIÁN POSADA MD, Ot Z68.41 BODY MASS INDEX (BMI) 40.0-44.9, ADULT 08/13/2016 FABIÁN POSADA MD Ot Z79.4 SHELTER (CURRENT) USE OF INSULIN 08/13/2016 FABIÁN POSADA MD, Ot Z79.899 OTHER SHELTER (CURRENT) DRUG THERAPY 09/11/2016 FABIÁN POSADA MD, Ot 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 ENDOMETRIUM 09/11/2016 FABIÁN POSADA MD, Ot E11.319 [facility]/ 09/11/2016 FABIÁN POSADA MD, Ot E66.01 MORBID (SEVERE) OBESITY DUE TO EXCESS CA 09/11/2016 FABIÁN POSADA MD, Ot 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, [place]FINED IN [place] 09/11/2016 FABIÁN POSADA MD, Ot I10 ESSENTIAL (PRIMARY) HYPERTENSION 09/11/2016 FABIÁN POSADA MD, Ot R82.99 OTHER ABNORMAL FINDINGS IN URINE 09/11/2016 FABIÁN POSADA MD, Ot Z68.41 BODY MASS INDEX (BMI) 40.0-44.9, ADULT 09/11/2016 FABIÁN POSADA MD Ot Z79.4 LOAN REVIEW ANALYST (CURRENT) USE OF INSULIN 09/11/2016 FABIÁN POSADA MD Ot 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 10/08/2016 FABIÁN POSADA MD, Ot 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 ENDOMETRIUM 10/08/2016 FABIÁN POSADA MD, Ot E11.319 TYPE 2 [facility] RTN[facility] W/ 10/08/2016 FABIÁN POSADA MD, Ot E66.01 MORBID (SEVERE) OBESITY DUE TO EXCESS CA 10/08/2016 FABIÁN POSADA MD Ot 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, DEFINED IN [place] 10/08/2016 FABIÁN POSADA MD Ot I10 ESSENTIAL (PRIMARY) HYPERTENSION 10/08/2016 FABIÁN POSADA MD Ot R82.99 OTHER ABNORMAL FINDINGS IN URINE 10/08/2016 FABIÁN POSADA MD, Ot Z45.2 ENCOUNTER FOR ADJUSTMENT AND MANAGEMENT 10/08/2016 FABIÁN POSADA MD, Ot Z68.41 BODY MASS INDEX (BMI) 40.0-44.9, ADULT 10/08/2016 FABIÁN POSADA MD, Ot Z79.4 SHELTER (CURRENT) USE OF INSULIN 10/08/2016 FABIÁN POSADA MD, Ot 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 10/09/2016 FABIÁN POSADA MD, Ot 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 ENDOMETRIUM 10/09/2016 FABIÁN POSADA MD, Ot E11.319 TYPE 2 DIABETES W [facility] DIABETIC RTNOP W/ 10/09/2016 FABIÁN POSADA MD, Ot E66.01 MORBID (SEVERE) OBESITY DUE TO EXCESS CA 10/09/2016 FABIÁN POSADA MD, Ot 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, [place]FINED IN [place] 10/09/2016 FABIÁN POSADA MD, Ot I10 ESSENTIAL (PRIMARY) HYPERTENSION 10/09/2016 FABIÁN POSADA MD, Ot R82.99 OTHER ABNORMAL FINDINGS IN URINE 10/09/2016 FABIÁN POSADA MD, Ot Z45.2 ENCOUNTER FOR ADJUSTMENT AND MANAGEMENT 10/09/2016 FABIÁN POSADA MD, Ot Z68.41 BODY MASS INDEX (BMI) 40.0-44.9, ADULT 10/09/2016 FABIÁN POSADA MD, Ot Z79.4 SHELTER (CURRENT) USE OF INSULIN 10/09/2016 FABIÁN POSADA MD, Ot Z79.899 OTHER SHELTER (CURRENT) DRUG THERAPY 10/10/2016 FABIÁN POSADA MD, Ot 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 ENDOMETRIUM 10/10/2016 FABIÁN POSADA MD, Ot E11.319 TYPE 2 DIABETES W [facility] DIABETIC RTNOP W/ 10/10/2016 FABIÁN POSADA MD, Ot E66.01 MORBID (SEVERE) OBESITY DUE TO EXCESS CA 10/10/2016 FABIÁN POSADA MD, Ot 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, [place]FINED IN [place] 10/10/2016 FABIÁN POSADA MD, Ot I10 ESSENTIAL (PRIMARY) HYPERTENSION 10/10/2016 FABIÁN POSADA MD, Ot R82.99 OTHER ABNORMAL FINDINGS IN URINE 10/10/2016 FABIÁN POSADA MD, Ot Z68.41 BODY MASS INDEX (BMI) 40.0-44.9, ADULT 10/10/2016 FABIÁN POSADA MD, Ot Z79.4 SHELTER (CURRENT) USE OF INSULIN 10/10/2016 FABIÁN POSADA MD, Ot 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 10/14/2016 FABIÁN POSADA MD, Ot 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 ENDOMETRIUM 10/14/2016 FABIÁN POSADA MD, Ot E11.319 TYPE 2 DIABETES W [facility] DIABETIC RTNOP W/ 10/14/2016 FABIÁN POSADA MD, Ot E66.01 MORBID (SEVERE) OBESITY DUE TO EXCESS CA 10/14/2016 FABIÁN POSADA MD, Ot 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, [place]FINED IN [place] 10/14/2016 FABIÁN POSADA MD Ot I10 ESSENTIAL (PRIMARY) HYPERTENSION 10/14/2016 FABIÁN POSADA MD, Ot R82.99 OTHER ABNORMAL FINDINGS IN URINE 10/14/2016 FABIÁN POSADA MD, Ot Z68.41 BODY MASS INDEX (BMI) 40.0-44.9, ADULT 10/14/2016 FABIÁN POSADA MD, Ot Z79.4 LOAN REVIEW ANALYST (CURRENT) USE OF INSULIN 10/14/2016 FABIÁN POSADA MD, Ot 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 12/04/2016 FABIÁN POSADA MD, Ot 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 ENDOMETRIUM 12/04/2016 FABIÁN POSADA MD, Ot E11.319 TYPE [facility] W12/04/2016 FABIÁN POSADA MD, Ot E66.01 MORBID (SEVERE) OBESITY DUE TO EXCESS CA 12/04/2016 FABIÁN POSADA MD, Ot 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, [place]FINED IN [place] 12/04/2016 FABIÁN POSADA MD Ot I10 ESSENTIAL (PRIMARY) HYPERTENSION 12/04/2016 FABIÁN POSADA MD, Ot R82.99 OTHER ABNORMAL FINDINGS IN URINE 12/04/2016 FABIÁN POSADA MD, Ot Z68.41 BODY MASS INDEX (BMI) 40.0-44.9, ADULT 12/04/2016 FABIÁN POSADA MD, Ot Z79.4 SHELTER (CURRENT) USE OF INSULIN 12/04/2016 FABIÁN POSADA MD, Ot Z79.899 OTHER SHELTER (CURRENT) DRUG THERAPY 01/11/2017 FABIÁN POSADA MD, Ot 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 ENDOMETRIUM 01/11/2017 FABIÁN POSADA MD Ot 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 01/11/2017 ALBINO MD, FABIÁN K Ot E11.319 TYPE 2 DIABETES W [facility] DIABETIC RTNOP W/ 01/11/2017 FABIÁN POSADA MD, Ot E66.01 MORBID (SEVERE) OBESITY DUE TO EXCESS CA 01/11/2017 FABIÁN POSADA MD, Ot 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, [place]FINED IN [place] 01/11/2017 FABIÁN POSADA MD, Ot I10 ESSENTIAL (PRIMARY) HYPERTENSION 01/11/2017 FABIÁN POSADA MD, Ot R82.99 OTHER ABNORMAL FINDINGS IN URINE 01/11/2017 FABIÁN POSADA MD, Ot R93.3 ABNORMAL FINDINGS ON DX IMAGING OF PRT D 01/11/2017 FABIÁN POSADA MD, Ot Z45.2 ENCOUNTER FOR ADJUSTMENT AND MANAGEMENT 01/11/2017 FABIÁN POSADA MD, Ot Z68.41 BODY MASS INDEX (BMI) 40.0-44.9, ADULT 01/11/2017 FABIÁN POSADA MD, Ot Z79.4 SHELTER (CURRENT) USE OF INSULIN 01/11/2017 FABIÁN POSADA MD, Ot 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 01/12/2017 FABIÁN POSADA MD, Ot 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 ENDOMETRIUM 01/12/2017 FABIÁN POSADA MD, Ot 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 01/12/2017 FABIÁN POSADA MD, Ot E11.319 TYPE 2 DIABETES W [facility] DIABETIC RTNOP W/ 01/12/2017 FABIÁN POSADA MD, Ot E66.01 MORBID (SEVERE) OBESITY DUE TO EXCESS CA 01/12/2017 FABIÁN POSADA MD, Ot 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, [place]FINED IN [place] 01/12/2017 FABIÁN POSADA MD, Ot I10 ESSENTIAL (PRIMARY) HYPERTENSION 01/12/2017 FABIÁN POSADA MD, Ot R82.99 OTHER ABNORMAL FINDINGS IN URINE 01/12/2017 FABIÁN POSADA MD, Ot Z45.2 ENCOUNTER FOR ADJUSTMENT AND MANAGEMENT 01/12/2017 FABIÁN POSADA MD, Ot Z68.41 BODY MASS INDEX (BMI) 40.0-44.9, ADULT 01/12/2017 FABIÁN POSADA MD, Ot Z79.4 LOAN REVIEW ANALYST (CURRENT) USE OF INSULIN 01/12/2017 FABIÁN POSADA MD, Ot Z79.899 OTHER SHELTER (CURRENT) DRUG THERAPY 01/13/2017 FABIÁN POSADA MD, Ot 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 ENDOMETRIUM 01/13/2017 FABIÁN POSADA MD, Ot E11.319 TYPE 2 DIABETES W [facility] DIABETIC RTNOP W/ 01/13/2017 FABIÁN POSADA MD, Ot E66.01 MORBID (SEVERE) OBESITY DUE TO EXCESS CA 01/13/2017 FABIÁN POSADA MD, Ot 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, [place]FINED IN [place] 01/13/2017 FABIÁN POSADA MD, Ot I10 ESSENTIAL (PRIMARY) HYPERTENSION 01/13/2017 FABIÁN POSADA MD, Ot R82.99 OTHER ABNORMAL FINDINGS IN URINE 01/13/2017 FABIÁN POSADA MD, Ot Z68.41 BODY MASS INDEX (BMI) 40.0-44.9, ADULT 01/13/2017 FABIÁN POSADA MD, Ot Z79.4 LOAN REVIEW ANALYST (CURRENT) USE OF INSULIN 01/13/2017 FABIÁN POSADA MD, Ot 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 01/14/2017 FABIÁN POSADA MD, Ot 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 ENDOMETRIUM 01/14/2017 FABIÁN POSADA MD, Ot 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 01/14/2017 FABIÁN POSADA MD, Ot E11.319 TYPE 2 DIABETES W [facility] DIABETIC RTNOP W/ 01/14/2017 FABIÁN POSADA MD, Ot E66.01 MORBID (SEVERE) OBESITY DUE TO EXCESS CA 01/14/2017 FABIÁN POSADA MD, Ot 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, [place]FINED IN [place] 01/14/2017 FABIÁN POSADA MD, Ot I10 ESSENTIAL (PRIMARY) HYPERTENSION 01/14/2017 FABIÁN POSADA MD, Ot R82.99 OTHER ABNORMAL FINDINGS IN URINE 01/14/2017 FABIÁN POSADA MD, Ot R93.3 ABNORMAL FINDINGS ON DX IMAGING OF PRT D 01/14/2017 FABIÁN POSADA MD, Ot Z45.2 ENCOUNTER FOR ADJUSTMENT AND MANAGEMENT 01/14/2017 FABIÁN POSADA MD, Ot Z68.41 BODY MASS INDEX (BMI) 40.0-44.9, ADULT 01/14/2017 FABIÁN POSADA MD, Ot Z79.4 LOAN REVIEW ANALYST (CURRENT) USE OF INSULIN 01/14/2017 FABIÁN POSADA MD, Ot Z79.899 OTHER SHELTER (CURRENT) DRUG THERAPY 02/05/2017 COLTHARP DOMAYTE Ot 250.82 DIAB W OTH SPEC MANIFEST, TYPE II OR UNS 02/05/2017 COLTHARP MAYTE BAEZ Ot 459.81 VENOUS INSUFFICIENCY NOS 02/05/2017 COLTHARP DO, MAYTE A Ot 707.19 ULCER OF OTHER PART OF LOWER LIMB 02/05/2017 CARMEN LY Allen PET NUTRITION SPECIALIST Ot 553.1 UMBILICAL HERNIA 02/05/2017 LY MORALES PET NUTRITION SPECIALIST Ot 562.10 DIVERTICULOSIS COLON (W/O MENT OF HEMORR 02/05/2017 YANA BYRNES DO Ot 625.8 FEM GENITAL SYMPTOMS NEC 02/05/2017 YANA BYRNES DO Ot 627.1 POSTMENOPAUSAL BLEEDING 02/05/2017 FABIÁN POSADA MD Ot 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 02/05/2017 FABIÁN POSADA MD, Ot 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 ENDOMETRIUM 02/05/2017 ANNETTE JIMENEZ Ot 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 ENDOMETRIUM 02/05/2017 ANNETTE JIMENEZP Ot E11.319 TYPE 2 DIABETES W UNSP DIABETIC RTNOP W/ 02/05/2017 ANNETTE JIMENEZP Ot E66.01 MORBID (SEVERE) OBESITY DUE TO EXCESS CA 02/05/2017 ANNETTE JIMENEZP Ot 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, DEFINED IN [place] 02/05/2017 ANNETTE JIMENEZP Ot I10 ESSENTIAL (PRIMARY) HYPERTENSION 02/05/2017 ANNETTE JIMENZE PET NUTRITION SPECIALIST Ot Z68.41 BODY MASS INDEX (BMI) 40.0-44.9, ADULT 02/05/2017 ANNETTE JIMENEZ PET NUTRITION SPECIALIST Ot Z79.4 SHELTER (CURRENT) USE OF INSULIN 02/05/2017 ANNETTE JIMENEZP Ot Z79.899 OTHER SHELTER (CURRENT) DRUG THERAPY 02/05/2017 TELMA GRIER MD Ot 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 ENDOMETRIUM 02/05/2017 TELMA GRIER MD Ot Z01.818 ENCOUNTER FOR OTHER PREPROCEDURAL EXAMIN 02/05/2017 KAREN MORALES DO Ot R60.0 LOCALIZED EDEMA 02/05/2017 FABIÁN POSADA MD Ot R06.02 SHORTNESS OF BREATH 02/05/2017 FABIÁN POSADA MD Ot 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 ENDOMETRIUM 02/05/2017 FABIÁN POSADA MD Ot 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 ENDOMETRIUM 02/05/2017 KAREN MORALES DO Ot R19.7 DIARRHEA, UNSPECIFIED 02/05/2017 KAREN MORALES DO Ot R30.0 DYSURIA 02/05/2017 FABIÁN POSADA MD, Ot 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 ENDOMETRIUM 02/05/2017 FABIÁN POSADA MD, Ot E11.319 TYPE 2 DIABETES W UNSP DIABETIC RTNOP W/ 02/05/2017 FABIÁN POSADA MD, Ot E66.01 MORBID (SEVERE) OBESITY DUE TO EXCESS CA 02/05/2017 FABIÁN POSADA MD, Ot 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, DEFINED IN [place] 02/05/2017 FABIÁN POSADA MD, Ot I10 ESSENTIAL (PRIMARY) HYPERTENSION 02/05/2017 FABIÁN POSADA MD, Ot R82.99 OTHER ABNORMAL FINDINGS IN URINE 02/05/2017 FABIÁN POSADA MD, Ot Z68.41 BODY MASS INDEX (BMI) 40.0-44.9, ADULT 02/05/2017 FABIÁN POSADA MD, Ot Z79.4 LOAN REVIEW ANALYST (CURRENT) USE OF INSULIN 02/05/2017 FABIÁN POSADA MD, Ot 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 02/09/2017 FABIÁN POSADA MD, Ot 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 ENDOMETRIUM 02/09/2017 FABIÁN POSADA MD, Ot K42.9 UMBILICAL HERNIA WITHOUT OBSTRUCTION OR 02/10/2017 FABIÁN POSADA MD, Ot 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 ENDOMETRIUM 02/10/2017 FABIÁN POSADA MD, Ot K42.9 UMBILICAL HERNIA WITHOUT OBSTRUCTION OR 02/10/2017 FABIÁN POSADA MD, Ot 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 ENDOMETRIUM 02/10/2017 FABIÁN POSADA MD, Ot K42.9 UMBILICAL HERNIA WITHOUT OBSTRUCTION OR 02/10/2017 FABIÁN POSADA MD, Ot 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 ENDOMETRIUM 02/10/2017 FABIÁN POSADA MD, Ot K42.9 UMBILICAL HERNIA WITHOUT OBSTRUCTION OR 02/10/2017 FABIÁN POSADA MD Ot 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 ENDOMETRIUM 02/10/2017 FABIÁN POSADA MD, Ot K42.9 UMBILICAL HERNIA WITHOUT OBSTRUCTION OR 02/13/2017 FABIÁN POSADA MD, Ot 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 ENDOMETRIUM 02/13/2017 FABIÁN POSADA MD, Ot K42.9 UMBILICAL HERNIA WITHOUT OBSTRUCTION OR 02/13/2017 FABIÁN POSADA MD Ot 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 ENDOMETRIUM 02/13/2017 FABIÁN POSADA MD Ot K42.9 UMBILICAL HERNIA WITHOUT OBSTRUCTION OR 02/19/2017 COLTHARP DO, MAYTE A Ot 250.82 DIAB W OTH SPEC MANIFEST, TYPE II OR UNS 02/19/2017 COLMAYTE RICHMOND DO Ot 459.81 VENOUS INSUFFICIENCY NOS 02/19/2017 IZA MAYTE Ot 707.19 ULCER OF OTHER PART OF LOWER LIMB 02/19/2017 CARMEN LY Allen PET NUTRITION SPECIALIST Ot 553.1 UMBILICAL HERNIA 02/19/2017 LY MORALES PET NUTRITION SPECIALIST Ot 562.10 DIVERTICULOSIS COLON (W/O MENT OF HEMORR 02/19/2017 YANA BYRNES DO S Ot 625.8 FEM GENITAL SYMPTOMS NEC 02/19/2017 YANA BYRNES DO Ot 627.1 POSTMENOPAUSAL BLEEDING 02/19/2017 ALBINO FREY, FABIÁN Haines Ot 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 02/19/2017 ALBINO FREY, FABIÁN Haines Ot 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 ENDOMETRIUM 02/19/2017 ANNETTE JIMENEZP Ot 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 ENDOMETRIUM 02/19/2017 ANNETTE JIMENEZP Ot E11.319 TYPE 2 DIABETES W UNSP DIABETIC RTNOP W/ 02/19/2017 ANNETTE JIMENEZP Ot E66.01 MORBID (SEVERE) OBESITY DUE TO EXCESS CA 02/19/2017 ANNETTE JIMENEZP Ot 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, DEFINED IN [place] 02/19/2017 ANNETTE JIMENEZP Ot I10 ESSENTIAL (PRIMARY) HYPERTENSION 02/19/2017 ANNETTE JIMENEZ PET NUTRITION SPECIALIST Ot Z68.41 BODY MASS INDEX (BMI) 40.0-44.9, ADULT 02/19/2017 ANNETTE JIMENEZP Ot Z79.4 LOAN REVIEW ANALYST (CURRENT) USE OF INSULIN 02/19/2017 ANNETTE JIMENEZP Ot 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 02/19/2017 MARVEL FREY, TELMA Ot 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 ENDOMETRIUM 02/19/2017 TELMA GRIER MD Ot Z01.818 ENCOUNTER FOR OTHER PREPROCEDURAL EXAMIN 02/19/2017 KAERN MORALES DO Ot R60.0 LOCALIZED EDEMA 02/19/2017 ALBINO FREY, FABIÁN Haines Ot R06.02 SHORTNESS OF BREATH 02/19/2017 FABIÁN POSADA MD Ot 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 ENDOMETRIUM 02/19/2017 FABIÁN POSADA MD, Ot 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 ENDOMETRIUM 02/19/2017 KAREN MORALES DO Ot R19.7 DIARRHEA, UNSPECIFIED 02/19/2017 KAREN MORALES DO Ot R30.0 DYSURIA 02/19/2017 FABIÁN POSADA MD, Ot 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 ENDOMETRIUM 02/19/2017 FABIÁN POSADA MD, Ot E11.319 TYPE 2 DIABETES W UNSP DIABETIC RTNOP W/ 02/19/2017 FABIÁN POSADA MD, Ot E66.01 MORBID (SEVERE) OBESITY DUE TO EXCESS CA 02/19/2017 FABIÁN POSADA MD, Ot 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, DEFINED IN [place] 02/19/2017 FABIÁN POSADA MD, Ot I10 ESSENTIAL (PRIMARY) HYPERTENSION 02/19/2017 FABIÁN POSADA MD, Ot R82.99 OTHER ABNORMAL FINDINGS IN URINE 02/19/2017 FABIÁN POSADA MD, Ot Z68.41 BODY MASS INDEX (BMI) 40.0-44.9, ADULT 02/19/2017 FABIÁN POSADA MD, Ot Z79.4 SHELTER (CURRENT) USE OF INSULIN 02/19/2017 FABIÁN POSADA MD, Ot 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 02/19/2017 FABIÁN POSADA MD, Ot 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 ENDOMETRIUM 02/19/2017 FABIÁN POSADA MD, Ot K42.9 UMBILICAL HERNIA WITHOUT OBSTRUCTION OR 02/21/2017 TELMA GRIER MD, Ot B37.81 CANDIDAL ESOPHAGITIS 02/21/2017 TELMA GRIER MD, Ot 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 ENDOMETRIUM 02/21/2017 TELMA GRIER MD, Ot E11.319 TYPE 2 DIABETES W UNSP DIABETIC RTNOP W/ 02/21/2017 TELMA GRIER MD, Ot E11.40 TYPE 2 DIABETES MELLITUS WITH DIABETIC N 02/21/2017 TELMA GRIER MD, Ot E66.9 OBESITY, UNSPECIFIED 02/21/2017 TELMA GRIER MD, Ot E86.0 DEHYDRATION 02/21/2017 TELMA GRIER MD, Ot 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, DEFINED IN [place] 02/21/2017 TELMA GRIER MD, Ot K20.8 OTHER ESOPHAGITIS 02/21/2017 TELMA GRIER MD, Ot K21.0 GASTRO-ESOPHAGEAL REFLUX DISEASE WITH ES 02/21/2017 TELMA GRIER MD, Ot K29.70 GASTRITIS, UNSPECIFIED, WITHOUT BLEEDING 02/21/2017 TELMA GRIER MD, Ot K44.9 DIAPHRAGMATIC HERNIA WITHOUT OBSTRUCTION 02/21/2017 TELMA GRIER MD, Ot L29.9 PRURITUS, UNSPECIFIED 02/21/2017 TELMA GRIER MD, Ot M54.14 RADICULOPATHY, THORACIC REGION 02/21/2017 TELMA GRIER MD, Ot N28.9 DISORDER OF KIDNEY AND URETER, UNSPECIFI 02/21/2017 TELMA GRIER MD, Ot N32.81 OVERACTIVE BLADDER 02/21/2017 TELMA GRIER MD, Ot R07.9 CHEST PAIN, UNSPECIFIED 02/21/2017 TELMA GRIER MD, Ot R63.4 ABNORMAL WEIGHT LOSS 02/21/2017 TELMA GRIER MD, Ot Z68.36 BODY MASS INDEX (BMI) 36.0-36.9, ADULT 02/21/2017 TELMA GRIER MD, Ot Z79.4 LOAN REVIEW ANALYST (CURRENT) USE OF INSULIN 02/21/2017 TELMA GRIER MD, Ot Z87.440 PERSONAL HISTORY OF URINARY (TRACT) INFE 02/21/2017 TELMA GRIER MD, Ot Z92.21 PERSONAL HISTORY OF ANTINEOPLASTIC CHEMO 02/21/2017 TELMA GRIER MD, Ot Z92.3 PERSONAL HISTORY OF IRRADIATION 02/21/2017 TELMA GRIER MD, Ot 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 ENDOMETRIUM 02/21/2017 TELMA GRIER MD, Ot E11.319 TYPE 2 DIABETES W UNSP DIABETIC RTNOP W/ 02/21/2017 TELMA GRIER MD, Ot E11.40 TYPE 2 DIABETES MELLITUS WITH DIABETIC N 02/21/2017 TELMA GRIER MD, Ot E66.9 OBESITY, UNSPECIFIED 02/21/2017 TELMA GRIER MD, Ot E86.0 DEHYDRATION 02/21/2017 TELMA GRIER MD, Ot 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, DEFINED IN [place] 02/21/2017 TELMA GRIER MD, Ot K20.8 OTHER ESOPHAGITIS 02/21/2017 TELMA GRIER MD, Ot K44.9 DIAPHRAGMATIC HERNIA WITHOUT OBSTRUCTION 02/21/2017 TELMA GRIER MD, Ot L29.9 PRURITUS, UNSPECIFIED 02/21/2017 TELMA GRIER MD, Ot M54.14 RADICULOPATHY, THORACIC REGION 02/21/2017 TELMA GRIER MD, Ot N28.9 DISORDER OF KIDNEY AND URETER, UNSPECIFI 02/21/2017 TELMA GRIER MD, Ot N32.81 OVERACTIVE BLADDER 02/21/2017 TELMA GRIER MD, Ot R07.9 CHEST PAIN, UNSPECIFIED 02/21/2017 TELMA GRIER MD, Ot R63.4 ABNORMAL WEIGHT LOSS 02/21/2017 TELMA GRIER MD, Ot Z68.36 BODY MASS INDEX (BMI) 36.0-36.9, ADULT 02/21/2017 TELMA GRIER MD, Ot Z79.4 LOAN REVIEW ANALYST (CURRENT) USE OF INSULIN 02/21/2017 TELMA GRIER MD, Ot Z87.440 PERSONAL HISTORY OF URINARY (TRACT) INFE 02/21/2017 TELMA GRIER MD, Ot Z92.21 PERSONAL HISTORY OF ANTINEOPLASTIC CHEMO 02/21/2017 TELMA GRIER MD, Ot Z92.3 PERSONAL HISTORY OF IRRADIATION 02/25/2017 TELMA GRIER MD, Ot 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 ENDOMETRIUM 02/25/2017 TELMA GRIER MD, Ot E11.319 TYPE 2 DIABETES W UNSP DIABETIC RTNOP W/ 02/25/2017 TELMA GRIER MD, Ot E11.40 TYPE 2 DIABETES MELLITUS WITH DIABETIC N 02/25/2017 TELMA GRIER MD, Ot E66.9 OBESITY, UNSPECIFIED 02/25/2017 TELMA GRIER MD, Ot E86.0 DEHYDRATION 02/25/2017 TELMA GRIER MD, Ot 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, [place]FINED IN [place] 02/25/2017 TELMA GRIER MD, Ot K20.8 OTHER ESOPHAGITIS 02/25/2017 TELMA GRIER MD, Ot K44.9 DIAPHRAGMATIC HERNIA WITHOUT OBSTRUCTION 02/25/2017 TELMA GRIER MD, Ot L29.9 PRURITUS, UNSPECIFIED 02/25/2017 TELMA GRIER MD, Ot M54.14 RADICULOPATHY, THORACIC REGION 02/25/2017 TELMA GRIER MD, Ot N28.9 DISORDER OF KIDNEY AND URETER, UNSPECIFI 02/25/2017 TELMA GRIER MD, Ot N32.81 OVERACTIVE BLADDER 02/25/2017 TELMA GRIER MD, Ot R07.9 CHEST PAIN, UNSPECIFIED 02/25/2017 TELMA GRIER MD, Ot R63.4 ABNORMAL WEIGHT LOSS 02/25/2017 TELMA GRIER MD, Ot Z68.36 BODY MASS INDEX (BMI) 36.0-36.9, ADULT 02/25/2017 TELMA GRIER MD, Ot Z79.4 LOAN REVIEW ANALYST (CURRENT) USE OF INSULIN 02/25/2017 TELMA GRIER MD, Ot Z87.440 PERSONAL HISTORY OF URINARY (TRACT) INFE 02/25/2017 TELMA GRIER MD, Ot Z92.21 PERSONAL HISTORY OF ANTINEOPLASTIC CHEMO 02/25/2017 TELMA GRIER MD, Ot Z92.3 PERSONAL HISTORY OF IRRADIATION 02/26/2017 FABIÁN POSADA MD, Ot 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 ENDOMETRIUM 02/26/2017 FABIÁN POSADA MD, Ot K42.9 UMBILICAL HERNIA WITHOUT OBSTRUCTION OR 02/27/2017 TELMA GRIER MD, Ot B37.81 CANDIDAL ESOPHAGITIS 02/27/2017 TELMA GRIER MD, Ot 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 ENDOMETRIUM 02/27/2017 TELMA GRIER MD, Ot E11.319 TYPE 2 DIABETES W UNSP DIABETIC RTNOP W/ 02/27/2017 TELMA GRIER MD, Ot E11.40 TYPE 2 DIABETES MELLITUS WITH DIABETIC N 02/27/2017 TELMA GRIER MD, Ot E66.9 OBESITY, UNSPECIFIED 02/27/2017 TELMA GRIER MD, Ot E86.0 DEHYDRATION 02/27/2017 TELMA GRIER MD, Ot 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, [place]FINED IN [place] 02/27/2017 TELMA GRIER MD, Ot K21.0 GASTRO-ESOPHAGEAL REFLUX DISEASE WITH ES 02/27/2017 TELMA GRIER MD, Ot K29.70 GASTRITIS, UNSPECIFIED, WITHOUT BLEEDING 02/27/2017 TELMA GRIER MD, Ot K44.9 DIAPHRAGMATIC HERNIA WITHOUT OBSTRUCTION 02/27/2017 TELMA GRIER MD, Ot L29.9 PRURITUS, UNSPECIFIED 02/27/2017 TELMA GRIER MD, Ot M54.14 RADICULOPATHY, THORACIC REGION 02/27/2017 TELMA GRIER MD, Ot N28.9 DISORDER OF KIDNEY AND URETER, UNSPECIFI 02/27/2017 TELMA GRIER MD, Ot N32.81 OVERACTIVE BLADDER 02/27/2017 TELMA GRIER MD, Ot R07.9 CHEST PAIN, UNSPECIFIED 02/27/2017 TELMA GRIER MD, Ot R63.4 ABNORMAL WEIGHT LOSS 02/27/2017 TELMA GRIER MD, Ot Z68.36 BODY MASS INDEX (BMI) 36.0-36.9, ADULT 02/27/2017 TELMA GRIER MD, Ot Z79.4 SHELTER (CURRENT) USE OF INSULIN 02/27/2017 TELMA GRIER MD, Ot Z87.440 PERSONAL HISTORY OF URINARY (TRACT) INFE 02/27/2017 TELMA GRIER MD, Ot Z92.21 PERSONAL HISTORY OF ANTINEOPLASTIC CHEMO 02/27/2017 TELMA GRIER MD, Ot Z92.3 PERSONAL HISTORY OF IRRADIATION 03/04/2017 YANA HODGSON MD, Ot E11.622 TYPE 2 DIABETES MELLITUS WITH OTHER SKIN 03/04/2017 YANA HODGSON MD, Ot I87.333 CHRONIC VENOUS HTN W ULCER AND INFLAM OF 03/04/2017 YANA HODGSON MD, Ot L95.8 OTHER VASCULITIS LIMITED TO THE SKIN 03/04/2017 YANA HODGSON MD, Ot L97.211 NON-PRS CHRONIC ULCER OF RIGHT CALF LIMI 03/04/2017 YANA HODGSON MD, Ot L98.491 NON-PRS CHRONIC ULCER SKIN/ SITES LIMITE 03/06/2017 FABIÁN POSADA MD, Ot 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 ENDOMETRIUM 03/06/2017 FABIÁN POSADA MD, Ot E11.319 TYPE 2 DIABETES W UNSP DIABETIC RTNOP W/ 03/06/2017 FABIÁN POSADA MD, Ot E66.01 MORBID (SEVERE) OBESITY DUE TO EXCESS CA 03/06/2017 FABIÁN POSADA MD, Ot 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, [place]FINED IN [place] 03/06/2017 FABIÁN POSADA MD, Ot I10 ESSENTIAL (PRIMARY) HYPERTENSION 03/06/2017 FABIÁN POSADA MD, Ot R82.99 OTHER ABNORMAL FINDINGS IN URINE 03/06/2017 FABIÁN POSADA MD, Ot Z68.41 BODY MASS INDEX (BMI) 40.0-44.9, ADULT 03/06/2017 FABIÁN POSADA MD, Ot Z79.4 LOAN REVIEW ANALYST (CURRENT) USE OF INSULIN 03/06/2017 FABIÁN POSADA MD, Ot 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 03/25/2017 YANA HODGSON MD, Ot E11.622 TYPE 2 DIABETES MELLITUS WITH OTHER SKIN 03/25/2017 YANA HODGSON MD, Ot I87.333 CHRONIC VENOUS HTN W ULCER AND INFLAM OF 03/25/2017 YANA HODGSON MD, Ot L95.8 OTHER VASCULITIS LIMITED TO THE SKIN 03/25/2017 YANA HODGSON MD, Ot L97.211 NON-PRS CHRONIC ULCER OF RIGHT CALF LIMI 03/25/2017 YANA HODGSON MD, Ot L98.491 NON-PRS CHRONIC ULCER SKIN/ SITES LIMITE 04/06/2017 YANA HODGSON MD, Ot E11.622 TYPE 2 DIABETES MELLITUS WITH OTHER SKIN 04/06/2017 YANA HODGSON MD, Ot I87.333 CHRONIC VENOUS HTN W ULCER AND INFLAM OF 04/06/2017 YANA HODGSON MD, Ot L95.8 OTHER VASCULITIS LIMITED TO THE SKIN 04/06/2017 YANA HODGSON MD, Ot L97.211 NON-PRS CHRONIC ULCER OF RIGHT CALF LIMI 04/06/2017 YANA HODGSON MD, Ot L98.491 NON-PRS CHRONIC ULCER SKIN/ SITES LIMITE 04/12/2017 FABIÁN POSADA MD, Ot 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 ENDOMETRIUM 04/12/2017 FABIÁN POSADA MD, Ot D50.0 IRON DEFICIENCY ANEMIA SECONDARY TO BLOO 04/12/2017 FABIÁN POSADA MD, Ot 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 04/12/2017 FABIÁN POSADA MD, Ot E11.319 TYPE 2 DIABETES W UNSP DIABETIC RTNOP W/ 04/12/2017 FABIÁN POSADA MD, Ot E66.01 MORBID (SEVERE) OBESITY DUE TO EXCESS CA 04/12/2017 FABIÁN POSADA MD, Ot 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, [place]FINED IN [place] 04/12/2017 FABIÁN POSADA MD, Ot I10 ESSENTIAL (PRIMARY) HYPERTENSION 04/12/2017 FABIÁN POSADA MD, Ot R82.99 OTHER ABNORMAL FINDINGS IN URINE 04/12/2017 FABIÁN POSADA MD, Ot Z68.41 BODY MASS INDEX (BMI) 40.0-44.9, ADULT 04/12/2017 FABIÁN POSADA MD, Ot Z79.4 LOAN REVIEW ANALYST (CURRENT) USE OF INSULIN 04/12/2017 FABIÁN POSADA MD Ot 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 04/13/2017 FABIÁN POSADA MD Ot Z12.31 ENCNTR SCREEN MAMMOGRAM FOR MALIGNANT NE 04/13/2017 COLTHARP , MAYTE A Ot 250.82 DIAB W OTH SPEC MANIFEST, TYPE II OR UNS 04/13/2017 COLTHARP , MAYTE A Ot 459.81 VENOUS INSUFFICIENCY NOS 04/13/2017 COLTHARP DO, MAYTE A Ot 707.19 ULCER OF OTHER PART OF LOWER LIMB 04/13/2017 LY MORALES PET NUTRITION SPECIALIST Ot 553.1 UMBILICAL HERNIA 04/13/2017 LY MORALES PET NUTRITION SPECIALIST Ot 562.10 DIVERTICULOSIS COLON (W/O MENT OF HEMORR 04/13/2017 YANA BYRNES DO S Ot 625.8 FEM GENITAL SYMPTOMS NEC 04/13/2017 YANA BYRNES DO Ot 627.1 POSTMENOPAUSAL BLEEDING 04/13/2017 FABIÁN POSADA MD Ot 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 04/13/2017 FABIÁN POSADA MD Ot 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 ENDOMETRIUM 04/13/2017 ANNETTE JIMENEZP Ot 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 ENDOMETRIUM 04/13/2017 ANNETTE JIMENEZP Ot E11.319 TYPE 2 DIABETES W UNSP DIABETIC RTNOP W/ 04/13/2017 ANNETTE JIMENEZP Ot E66.01 MORBID (SEVERE) OBESITY DUE TO EXCESS CA 04/13/2017 ANNETTE JIMENEZP Ot 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, [place]FINED IN [place] 04/13/2017 ANNETTE JIMENEZ PET NUTRITION SPECIALIST Ot I10 ESSENTIAL (PRIMARY) HYPERTENSION 04/13/2017 ANNETTE JIMENEZP Ot Z68.41 BODY MASS INDEX (BMI) 40.0-44.9, ADULT 04/13/2017 ANNETTE JIMENEZP Ot Z79.4 LOAN REVIEW ANALYST (CURRENT) USE OF INSULIN 04/13/2017 ANNETTE JIMENEZP Ot Z79.899 OTHER SHELTER (CURRENT) DRUG THERAPY 04/13/2017 TELMA GRIER MD, Ot 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 ENDOMETRIUM 04/13/2017 TELMA GRIER MD, Ot Z01.818 ENCOUNTER FOR OTHER PREPROCEDURAL EXAMIN 04/13/2017 KAREN MORALES DO Ot R60.0 LOCALIZED EDEMA 04/13/2017 FABIÁN POASDA MD Ot R06.02 SHORTNESS OF BREATH 04/13/2017 FABIÁN POSADA MD, Ot 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 ENDOMETRIUM 04/13/2017 FABIÁN POSADA MD, Ot 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 ENDOMETRIUM 04/13/2017 KAREN MORALES DO Ot R19.7 DIARRHEA, UNSPECIFIED 04/13/2017 KAREN MORALES DO Ot R30.0 DYSURIA 04/13/2017 FABIÁN POSADA MD, Ot 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 ENDOMETRIUM 04/13/2017 FABIÁN POSADA MD, Ot K42.9 UMBILICAL HERNIA WITHOUT OBSTRUCTION OR 04/13/2017 FABIÁN POSADA MD, Ot Z12.31 ENCNTR SCREEN MAMMOGRAM FOR MALIGNANT NE 04/13/2017 FABIÁN POSADA MD, Ot Z12.31 ENCNTR SCREEN MAMMOGRAM FOR MALIGNANT NE 04/13/2017 NII BORDEN Ot 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 ENDOMETRIUM 04/13/2017 NII BORDEN Ot E11.319 TYPE 2 DIABETES W UNSP DIABETIC RTNOP W/ 04/13/2017 NII BORDEN Ot E66.01 MORBID (SEVERE) OBESITY DUE TO EXCESS CA 04/13/2017 NII BORDEN Ot 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, [place]FINED IN [place] 04/13/2017 NII BORDEN Ot I10 ESSENTIAL (PRIMARY) HYPERTENSION 04/13/2017 NII BORDEN Ot R82.99 OTHER ABNORMAL FINDINGS IN URINE 04/13/2017 NII BORDEN Ot Z68.41 BODY MASS INDEX (BMI) 40.0-44.9, ADULT 04/13/2017 NII BORDEN Ot Z79.4 SHELTER (CURRENT) USE OF INSULIN 04/13/2017 NII BORDEN Ot Z79.899 OTHER SHELTER (CURRENT) DRUG THERAPY 04/13/2017 FABIÁN POSADA MD, Ot Z12.31 ENCNTR SCREEN MAMMOGRAM FOR MALIGNANT NE 04/13/2017 FABIÁN POSADA MD, Ot 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 ENDOMETRIUM 04/13/2017 FABIÁN POSADA MD Ot D50.0 IRON DEFICIENCY ANEMIA SECONDARY TO BLOO 04/13/2017 FABIÁN POSADA MD Ot 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 04/13/2017 FABIÁN POSADA MD Ot E11.319 TYPE 2 DIABETES W UNSP DIABETIC RTNOP W/ 04/13/2017 FABIÁN POSADA MD Ot E66.01 MORBID (SEVERE) OBESITY DUE TO EXCESS CA 04/13/2017 FABIÁN POSADA MD Ot 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, [place]FINED [place] 04/13/2017 FABIÁN POSADA MD Ot I10 ESSENTIAL (PRIMARY) HYPERTENSION 04/13/2017 FABIÁN POSADA MD Ot R82.99 OTHER ABNORMAL FINDINGS IN URINE 04/13/2017 FABIÁN POSADA MD, Ot Z68.41 BODY MASS INDEX (BMI) 40.0-44.9, ADULT 04/13/2017 FABIÁN POSADA MD, Ot Z79.4 LOAN REVIEW ANALYST (CURRENT) USE OF INSULIN 04/13/2017 FABIÁN POSADA MD, Ot 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 04/15/2017 COLMAYTE RICHMOND DO A Ot 250.82 DIAB W OTH SPEC MANIFEST, TYPE II OR UNS 04/15/2017 COLMAYTE RICHMOND DO A Ot 459.81 VENOUS INSUFFICIENCY NOS 04/15/2017 MAYTE COUCH DO A Ot 707.19 ULCER OF OTHER PART OF LOWER LIMB 04/15/2017 LY MORALES PET NUTRITION SPECIALIST Ot 553.1 UMBILICAL HERNIA 04/15/2017 LY MORALES PET NUTRITION SPECIALIST Ot 562.10 DIVERTICULOSIS COLON (W/O MENT OF HEMORR 04/15/2017 YANA BYRNES DO Ot 625.8 FEM GENITAL SYMPTOMS NEC 04/15/2017 YANA BYRNES DO Ot 627.1 POSTMENOPAUSAL BLEEDING 04/15/2017 FABIÁN POSADA MD Ot 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 04/15/2017 FABIÁN POSADA MD Ot 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 ENDOMETRIUM 04/15/2017 ANNETTE JIMENEZ Ot 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 ENDOMETRIUM 04/15/2017 ANNETTE JIMENEZ Ot E11.319 TYPE 2 DIABETES W UNSP DIABETIC RTNOP W/ 04/15/2017 ANNETTE JIMENEZ Ot E66.01 MORBID (SEVERE) OBESITY DUE TO EXCESS CA 04/15/2017 ANNETTE JIMENEZ Ot 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, [place]FINED IN [place] 04/15/2017 JIMENEZANNETTE Krueger DEXTER Ot I10 ESSENTIAL (PRIMARY) HYPERTENSION 04/15/2017 ANNETTE JIMENEZ DEXTER Ot Z68.41 BODY MASS INDEX (BMI) 40.0-44.9, ADULT 04/15/2017 ANNETTE JIMENEZ DEXTER Ot Z79.4 LOAN REVIEW ANALYST (CURRENT) USE OF INSULIN 04/15/2017 ANNETTE JIMENEZ DEXTER Ot 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 04/15/2017 TELMA GRIER MD, Ot 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 ENDOMETRIUM 04/15/2017 TELMA GRIER MD, Ot Z01.818 ENCOUNTER FOR OTHER PREPROCEDURAL EXAMIN 04/15/2017 KAREN MORALES DO Ot R60.0 LOCALIZED EDEMA 04/15/2017 FABIÁN POSADA MD Ot R06.02 SHORTNESS OF BREATH 04/15/2017 FABIÁN POSADA MD, Ot 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 ENDOMETRIUM 04/15/2017 FABIÁN POSADA MD, Ot 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 ENDOMETRIUM 04/15/2017 KAREN MORALES DO Ot R19.7 DIARRHEA, UNSPECIFIED 04/15/2017 KAREN MORALES DO Ot R30.0 DYSURIA 04/15/2017 FABIÁN POSADA MD, Ot 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 ENDOMETRIUM 04/15/2017 FABIÁN POSADA MD Ot K42.9 UMBILICAL HERNIA WITHOUT OBSTRUCTION OR 04/15/2017 FABIÁN POSADA MD Ot Z12.31 ENCNTR SCREEN MAMMOGRAM FOR MALIGNANT NE 04/15/2017 FABIÁN POSADA MD Ot Z12.31 ENCNTR SCREEN MAMMOGRAM FOR MALIGNANT NE 04/15/2017 NII BORDEN Ot 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 ENDOMETRIUM 04/15/2017 NII BORDEN Ot E11.319 TYPE 2 DIABETES W UNSP DIABETIC RTNOP W/ 04/15/2017 NII BORDEN Ot E66.01 MORBID (SEVERE) OBESITY DUE TO EXCESS CA 04/15/2017 NII BORDEN Ot 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, [place]FINED IN [place] 04/15/2017 NII BORDEN Ot I10 ESSENTIAL (PRIMARY) HYPERTENSION 04/15/2017 NII BORDEN Ot R82.99 OTHER ABNORMAL FINDINGS IN URINE 04/15/2017 NII BORDEN Natasha Ot Z68.41 BODY MASS INDEX (BMI) 40.0-44.9, ADULT 04/15/2017 NII BORDEN Natasha Ot Z79.4 LOAN REVIEW ANALYST (CURRENT) USE OF INSULIN 04/15/2017 SUHA SELVINFERMIN Natasha Ot Z79.899 OTHER SHELTER (CURRENT) DRUG THERAPY 04/16/2017 FABIÁN POSADA MD Ot J84.10 PULMONARY FIBROSIS, UNSPECIFIED 04/16/2017 FABIÁN POSADA MD Ot K44.9 DIAPHRAGMATIC HERNIA WITHOUT OBSTRUCTION 04/16/2017 FABIÁN POSADA MD Ot R63.4 ABNORMAL WEIGHT LOSS 04/16/2017 FABIÁN POSADA MD Ot Z12.31 ENCNTR SCREEN MAMMOGRAM FOR MALIGNANT NE 04/17/2017 SELVIN BORDENFERMIN Kaur Ot 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 ENDOMETRIUM 04/17/2017 SELVIN BORDENFERMIN Kaur Ot E11.319 TYPE 2 DIABETES W UNSP DIABETIC RTNOP W/ 04/17/2017 SUHANII Ot E66.01 MORBID (SEVERE) OBESITY DUE TO EXCESS CA 04/17/2017 SUHANII Ot 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, [place]FINED IN [place] 04/17/2017 SUHA SELVINFERMIN Natasha Ot I10 ESSENTIAL (PRIMARY) HYPERTENSION 04/17/2017 NII BORDEN Natasha Ot R82.99 OTHER ABNORMAL FINDINGS IN URINE 04/17/2017 NII BORDEN Natasha Ot Z68.41 BODY MASS INDEX (BMI) 40.0-44.9, ADULT 04/17/2017 SELVIN BORDENFERMIN Kaur Ot Z79.4 SHELTER (CURRENT) USE OF INSULIN 04/17/2017 SUHANII ORTEZ Ot Z79.899 OTHER SHELTER (CURRENT) DRUG THERAPY 04/20/2017 FABIÁN POSADA MD Ot J84.10 PULMONARY FIBROSIS, UNSPECIFIED 04/20/2017 FABIÁN POSADA MD Ot K44.9 DIAPHRAGMATIC HERNIA WITHOUT OBSTRUCTION 04/20/2017 FABIÁN POSADA MD Ot R63.4 ABNORMAL WEIGHT LOSS 04/20/2017 FABIÁN POSADA MD Ot Z12.31 ENCNTR SCREEN MAMMOGRAM FOR MALIGNANT NE 04/20/2017 FABIÁN POSADA MD Ot J84.10 PULMONARY FIBROSIS, UNSPECIFIED 04/20/2017 FABIÁN POSADA MD Ot K44.9 DIAPHRAGMATIC HERNIA WITHOUT OBSTRUCTION 04/20/2017 FABIÁN POSADA MD Ot R63.4 ABNORMAL WEIGHT LOSS 04/20/2017 FABIÁN POSADA MD Ot Z12.31 ENCNTR SCREEN MAMMOGRAM FOR MALIGNANT NE 04/20/2017 FABIÁN POSADA MD Ot J84.10 PULMONARY FIBROSIS, UNSPECIFIED 04/20/2017 FABIÁN POSADA MD Ot K44.9 DIAPHRAGMATIC HERNIA WITHOUT OBSTRUCTION 04/20/2017 FABIÁN POSADA MD Ot R63.4 ABNORMAL WEIGHT LOSS 04/20/2017 FABIÁN POSADA MD Ot Z12.31 ENCNTR SCREEN MAMMOGRAM FOR MALIGNANT NE 04/20/2017 FABIÁN POSADA MD Ot J84.10 PULMONARY FIBROSIS, UNSPECIFIED 04/20/2017 FABIÁN POSADA MD Ot K44.9 DIAPHRAGMATIC HERNIA WITHOUT OBSTRUCTION 04/20/2017 FABIÁN POSADA MD Ot R63.4 ABNORMAL WEIGHT LOSS 04/20/2017 FABIÁN POSADA MD Ot Z12.31 ENCNTR SCREEN MAMMOGRAM FOR MALIGNANT NE 04/21/2017 TELMA GRIER MD Ot R19.5 OTHER FECAL ABNORMALITIES 04/21/2017 TELMA GRIER MD Ot Z01.818 ENCOUNTER FOR OTHER PREPROCEDURAL EXAMIN 04/21/2017 TELMA GRIER MD Ot R19.5 OTHER FECAL ABNORMALITIES 04/21/2017 TELMA GRIER MD Ot Z01.818 ENCOUNTER FOR OTHER PREPROCEDURAL EXAMIN 04/21/2017 FABIÁN POSADA MD Ot Z12.31 ENCNTR SCREEN MAMMOGRAM FOR MALIGNANT NE 04/21/2017 TELMA GRIER MD Ot D64.9 ANEMIA, UNSPECIFIED 04/21/2017 TELMA GRIER MD Ot R19.5 OTHER FECAL ABNORMALITIES 04/21/2017 TELMA GRIER MD Ot Z01.818 ENCOUNTER FOR OTHER PREPROCEDURAL EXAMIN 04/22/2017 TELMA GRIER MD Ot E11.40 TYPE 2 DIABETES MELLITUS WITH DIABETIC N 04/22/2017 TELMA GRIER MD Ot I10 ESSENTIAL (PRIMARY) HYPERTENSION 04/22/2017 TELMA GRIER MD, Ot K57.30 DVRTCLOS OF LG INT W/O PERFORATION OR AB 04/22/2017 TELMA GRIER MD, Ot K63.5 POLYP OF COLON 04/22/2017 KIDO MD, TAKAAKI Ot 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 04/22/2017 TELMA GRIER MD, Ot 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 04/22/2017 TELMA GRIER MD, Ot Z85.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 OF FE 04/22/2017 TELMA GRIER MD, Ot Z92.3 PERSONAL HISTORY OF IRRADIATION 04/28/2017 TELMA GRIER MD Ot E11.40 TYPE 2 DIABETES MELLITUS WITH DIABETIC N 04/28/2017 TELMA GRIER MD Ot I10 ESSENTIAL (PRIMARY) HYPERTENSION 04/28/2017 TELMA GRIER MD, Ot K57.30 DVRTCLOS OF LG INT W/O PERFORATION OR AB 04/28/2017 TELMA GRIER MD, Ot K63.5 POLYP OF COLON 04/28/2017 TELMA GRIER MD, Ot 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 04/28/2017 TELMA GRIER MD, Ot Z79.899 OTHER SHELTER (CURRENT) DRUG THERAPY 04/28/2017 TELMA GRIER MD, Ot Z85.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 OF FE 04/28/2017 TLEMA GRIER MD, Ot Z92.3 PERSONAL HISTORY OF IRRADIATION 05/07/2017 SANDRA FREY, LEILA Ot R92.8 OTH ABN AND INCONCLUSIVE FINDINGS ON DX 05/08/2017 ANNETTE JIMENEZ Ot R92.8 OTH ABN AND INCONCLUSIVE FINDINGS ON DX 05/09/2017 FABIÁN POSADA MD Ot J84.10 PULMONARY FIBROSIS, UNSPECIFIED 05/09/2017 FABIÁN POSADA MD Ot K44.9 DIAPHRAGMATIC HERNIA WITHOUT OBSTRUCTION 05/09/2017 FABIÁN POSADA MD Ot R63.4 ABNORMAL WEIGHT LOSS 05/09/2017 FABIÁN POSADA MD Ot Z12.31 ENCNTR SCREEN MAMMOGRAM FOR MALIGNANT NE 05/11/2017 ANNETTE JIMENEZ Ot R92.8 OTH ABN AND INCONCLUSIVE FINDINGS ON DX 05/14/2017 ANNETTE JIMENEZ Ot C50.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 05/14/2017 ANNETTE JIMENEZP Ot 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 05/15/2017 ANNETTE JIMENEZP Ot 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 05/15/2017 ANNETTE JIMENEZ PET NUTRITION SPECIALIST Ot N63 UNSPECIFIED LUMP IN BREAST 05/20/2017 ANNETTE JIMENEZ PET NUTRITION SPECIALIST Ot N63 UNSPECIFIED LUMP IN BREAST 05/20/2017 CHEKONOBLE L MUSIC COMPOSER Ot K57.30 DVRTCLOS OF LG INT W/O PERFORATION OR AB 05/20/2017 CHEKOCRISTYIN L MUSIC COMPOSER Ot K63.89 OTHER SPECIFIED DISEASES OF INTESTINE 05/20/2017 CHEKOCRISTYIN L MUSIC COMPOSER Ot Z85.42 PERSONAL HISTORY OF MALIGNANT NEOPLASM O 05/20/2017 CHEKOCRISTYIN L MUSIC COMPOSER Ot Z90.49 ACQUIRED ABSENCE OF OTHER SPECIFIED PART 05/20/2017 CHEKOCRISTYIN L MUSIC COMPOSER Ot Z90.710 ACQUIRED ABSENCE OF BOTH CERVIX AND UTER 05/25/2017 ANNETTE JIMENEZ PET NUTRITION SPECIALIST Ot C50.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 05/25/2017 ANNETTE JIMENEZ PET NUTRITION SPECIALIST Ot K63.9 DISEASE OF INTESTINE, UNSPECIFIED 05/29/2017 SANDRA FREY, CARRASCOJAVIER Ot R92.8 OTH ABN AND INCONCLUSIVE FINDINGS ON DX 06/05/2017 ANNETTE JIMENEZ PET NUTRITION SPECIALIST Ot N63 UNSPECIFIED LUMP IN BREAST 06/10/2017 ANNETTE JIMENEZ PET NUTRITION SPECIALIST Ot C50.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 06/10/2017 ANNETTE JIMENEZ PET NUTRITION SPECIALIST Ot K63.9 DISEASE OF INTESTINE, UNSPECIFIED 06/13/2017 NII BORDEN Ot 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 ENDOMETRIUM 06/13/2017 NII BORDEN Ot E11.319 TYPE 2 DIABETES W UNSP DIABETIC RTNOP W/ 06/13/2017 NII BORDEN Ot E66.01 MORBID (SEVERE) OBESITY DUE TO EXCESS CA 06/13/2017 NII BORDEN Ot 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, DEFINED IN [place] 06/13/2017 NII BORDEN Ot I10 ESSENTIAL (PRIMARY) HYPERTENSION 06/13/2017 NII BORDEN Ot N63 UNSPECIFIED LUMP IN BREAST 06/13/2017 NII BORDEN Ot R82.99 OTHER ABNORMAL FINDINGS IN URINE 06/13/2017 NII BORDEN Ot Z68.41 BODY MASS INDEX (BMI) 40.0-44.9, ADULT 06/13/2017 NII BORDEN Ot Z79.4 SHELTER (CURRENT) USE OF INSULIN 06/13/2017 NII BORDEN Ot Z79.899 OTHER SHELTER (CURRENT) DRUG THERAPY 06/18/2017 NII BORDEN Ot 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 ENDOMETRIUM 06/18/2017 NII BORDEN Ot E11.319 TYPE 2 DIABETES W UNSP DIABETIC RTNOP W/ 06/18/2017 NII BORDEN Ot E66.01 MORBID (SEVERE) OBESITY DUE TO EXCESS CA 06/18/2017 NII BORDEN Ot 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, [place]FINED IN [place] 06/18/2017 NII BORDEN Natasha Ot I10 ESSENTIAL (PRIMARY) HYPERTENSION 06/18/2017 NII BORDEN Ot N63 UNSPECIFIED LUMP IN BREAST 06/18/2017 NII BORDEN Ot R82.99 OTHER ABNORMAL FINDINGS IN URINE 06/18/2017 NII BORDEN Ot Z68.41 BODY MASS INDEX (BMI) 40.0-44.9, ADULT 06/18/2017 NII BORDEN Ot Z79.4 SHELTER (CURRENT) USE OF INSULIN 06/18/2017 NII BORDEN Ot 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 06/26/2017 KAREN MORALES DO Ot R13.10 DYSPHAGIA, UNSPECIFIED 06/26/2017 KAREN MORALES DO Ot R13.10 DYSPHAGIA, UNSPECIFIED 06/26/2017 KAREN MORALES DO Ot R13.10 DYSPHAGIA, UNSPECIFIED 06/29/2017 KAREN MORALES DO Ot R13.10 DYSPHAGIA, UNSPECIFIED 06/29/2017 KAREN MORALES DO Ot R13.10 DYSPHAGIA, UNSPECIFIED 06/29/2017 KAREN MORALES DO Ot R13.10 DYSPHAGIA, UNSPECIFIED 06/29/2017 KAREN MORALES DO Ot R13.10 DYSPHAGIA, UNSPECIFIED 06/29/2017 KAREN MORALES DO Ot R13.14 DYSPHAGIA, PHARYNGOESOPHAGEAL PHASE 06/29/2017 MAYTE COUCH DO Ot 250.82 DIAB W OTH SPEC MANIFEST, TYPE II OR UNS 06/29/2017 MAYTE COUCH DO A Ot 459.81 VENOUS INSUFFICIENCY NOS 06/29/2017 COLTHMAYTE CARDOSO DO Ot 707.19 ULCER OF OTHER PART OF LOWER LIMB 06/29/2017 CARMENLY PET NUTRITION SPECIALIST Ot 553.1 UMBILICAL HERNIA 06/29/2017 CARMEN LY L PET NUTRITION SPECIALIST Ot 562.10 DIVERTICULOSIS COLON (W/O MENT OF HEMORR 06/29/2017 YANA BYRNES DO Ot 625.8 FEM GENITAL SYMPTOMS NEC 06/29/2017 YANA BYRNES DO Ot 627.1 POSTMENOPAUSAL BLEEDING 06/29/2017 FABIÁN POSADA MD Ot 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 06/29/2017 FABIÁN POSADA MD Ot 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 ENDOMETRIUM 06/29/2017 ANNETTE JIMENEZP Ot 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 ENDOMETRIUM 06/29/2017 ANNETTE JIMENEZP Ot E11.319 TYPE 2 DIABETES W UNSP DIABETIC RTNOP W/ 06/29/2017 ANNETTE JIMENEZ PET NUTRITION SPECIALIST Ot E66.01 MORBID (SEVERE) OBESITY DUE TO EXCESS CA 06/29/2017 ANNTETE JIMENEZ PET NUTRITION SPECIALIST Ot 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, DEFINED IN [place] 06/29/2017 ANNETTE JIMENEZ PET NUTRITION SPECIALIST Ot I10 ESSENTIAL (PRIMARY) HYPERTENSION 06/29/2017 ANNETTE JIMENEZ PET NUTRITION SPECIALIST Ot Z68.41 BODY MASS INDEX (BMI) 40.0-44.9, ADULT 06/29/2017 ANNETTE JIMENEZ PET NUTRITION SPECIALIST Ot Z79.4 SHELTER (CURRENT) USE OF INSULIN 06/29/2017 ANNETTE JIMENEZP Ot Z79.899 OTHER SHELTER (CURRENT) DRUG THERAPY 06/29/2017 TELMA GRIER MD Ot 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 ENDOMETRIUM 06/29/2017 TELMA GRIER MD Ot Z01.818 ENCOUNTER FOR OTHER PREPROCEDURAL EXAMIN 06/29/2017 KAREN MORALES DO Ot R60.0 LOCALIZED EDEMA 06/29/2017 FABIÁN POSADA MD Ot R06.02 SHORTNESS OF BREATH 06/29/2017 FABIÁN POSADA MD Ot 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 ENDOMETRIUM 06/29/2017 FABIÁN POSADA MD Ot 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 ENDOMETRIUM 06/29/2017 KAREN MORALES DO Ot R19.7 DIARRHEA, UNSPECIFIED 06/29/2017 KAREN MORALES DO Ot R30.0 DYSURIA 06/29/2017 FABIÁN POSADA MD Ot 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 ENDOMETRIUM 06/29/2017 FABIÁN POSADA MD Ot K42.9 UMBILICAL HERNIA WITHOUT OBSTRUCTION OR 06/29/2017 FABIÁN POSADA MD Ot J84.10 PULMONARY FIBROSIS, UNSPECIFIED 06/29/2017 FABIÁN POSADA MD Ot K44.9 DIAPHRAGMATIC HERNIA WITHOUT OBSTRUCTION 06/29/2017 FABIÁN POSADA MD Ot R63.4 ABNORMAL WEIGHT LOSS 06/29/2017 FABIÁN POSADA MD Ot Z12.31 ENCNTR SCREEN MAMMOGRAM FOR MALIGNANT NE 06/29/2017 FABIÁN POSADA MD Ot Z12.31 ENCNTR SCREEN MAMMOGRAM FOR MALIGNANT NE 06/29/2017 NOBLE STILL MUSIC COMPOSER Ot K57.30 DVRTCLOS OF LG INT W/O PERFORATION OR AB 06/29/2017 NOBLE STILL L MUSIC COMPOSER Ot K63.89 OTHER SPECIFIED DISEASES OF INTESTINE 06/29/2017 CRISTY STILLIN L MUSIC COMPOSER Ot Z85.42 PERSONAL HISTORY OF MALIGNANT NEOPLASM O 06/29/2017 NOBLE STILL MUSIC COMPOSER Ot Z90.49 ACQUIRED ABSENCE OF OTHER SPECIFIED PART 06/29/2017 CHEKOCRISTY RAOIN L MUSIC COMPOSER Ot Z90.710 ACQUIRED ABSENCE OF BOTH CERVIX AND UTER 06/29/2017 SANDRA FREY, CARRASCOJAVIER Ot R92.8 OTH ABN AND INCONCLUSIVE FINDINGS ON DX 06/29/2017 ANNETTE JIMENEZ PET NUTRITION SPECIALIST Ot N63 UNSPECIFIED LUMP IN BREAST 06/29/2017 ANNETTE JIMENEZ PET NUTRITION SPECIALIST Ot C50.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 06/29/2017 ANNETTE JIMENEZ PET NUTRITION SPECIALIST Ot K63.9 DISEASE OF INTESTINE, UNSPECIFIED 06/29/2017 ANNETTE JIMENEZ PET NUTRITION SPECIALIST Ot 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 06/29/2017 ANNETTE JIMENEZ PET NUTRITION SPECIALIST Ot 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 ENDOMETRIUM 06/29/2017 ANNETTE JIMENEZ PET NUTRITION SPECIALIST Ot Z78.0 ASYMPTOMATIC MENOPAUSAL STATE 06/29/2017 NII BORDEN Ot 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 ENDOMETRIUM 06/29/2017 SUHANII Ot E11.319 TYPE 2 DIABETES W UNSP DIABETIC RTNOP W/ 06/29/2017 NII BORDEN Ot E66.01 MORBID (SEVERE) OBESITY DUE TO EXCESS CA 06/29/2017 SUHA NII Kaur Ot 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, DEFINED IN [place] 06/29/2017 NII BORDEN Ot I10 ESSENTIAL (PRIMARY) HYPERTENSION 06/29/2017 NII BORDEN Ot N63 UNSPECIFIED LUMP IN BREAST * DO NOT USE 06/29/2017 SUHANII ORTEZ Ot R82.99 OTHER ABNORMAL FINDINGS IN URINE 06/29/2017 SUHA, NII Kaur Ot Z68.41 BODY MASS INDEX (BMI) 40.0-44.9, ADULT 06/29/2017 NII BORDEN Ot Z79.4 LOAN REVIEW ANALYST (CURRENT) USE OF INSULIN 06/29/2017 NII BORDEN Ot 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 06/29/2017 KAREN MORALES DO Ot R13.14 DYSPHAGIA, PHARYNGOESOPHAGEAL PHASE 07/16/2017 ANNETTE JIMENEZ Ot 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 07/16/2017 ANNETTE JIMENEZ Ot 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 ENDOMETRIUM 07/16/2017 ANNETTE JIMENEZ Ot Z78.0 ASYMPTOMATIC MENOPAUSAL STATE 07/27/2017 KAREN MORALES DO Ot R13.14 DYSPHAGIA, PHARYNGOESOPHAGEAL PHASE 08/07/2017 NII BORDEN Ot 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 08/07/2017 NII BORDEN Ot 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 ENDOMETRIUM 08/07/2017 NII BORDEN Ot E11.319 TYPE 2 DIABETES W UNSP DIABETIC RTNOP W/ 08/07/2017 NII BORDEN Ot E11.40 TYPE 2 DIABETES MELLITUS WITH DIABETIC N 08/07/2017 NII BORDEN Ot E66.9 OBESITY, UNSPECIFIED 08/07/2017 NII BORDEN Ot I10 ESSENTIAL (PRIMARY) HYPERTENSION 08/20/2017 NII BORDEN Ot 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 08/20/2017 SUHANII ORTEZ Natasha Ot 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 ENDOMETRIUM 08/20/2017 NII BORDEN Natasha Ot E11.319 TYPE 2 DIABETES W UNSP DIABETIC RTNOP W/ 08/20/2017 NII BORDEN Natasha Ot E11.40 TYPE 2 DIABETES MELLITUS WITH DIABETIC N 08/20/2017 NII BORDEN Natasha Ot E66.9 OBESITY, UNSPECIFIED 08/20/2017 NII BORDEN Natasha Ot I10 ESSENTIAL (PRIMARY) HYPERTENSION 08/24/2017 RICHMOND PADILLA MD, Ot 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 08/24/2017 RICHMOND PADILLA MD, Ot 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 ENDOMETRIUM 08/24/2017 RICHMOND PADILLA MD, Ot E11.319 TYPE 2 DIABETES W UNSP DIABETIC RTNOP W/ 08/24/2017 RICHMOND PADILLA MD, Ot E11.40 TYPE 2 DIABETES MELLITUS WITH DIABETIC N 08/24/2017 RICHMOND PADILLA MD, Ot E66.9 OBESITY, UNSPECIFIED 08/24/2017 RICHMOND PADILLA MD Ot I10 ESSENTIAL (PRIMARY) HYPERTENSION 08/24/2017 RICHMOND PADILLA MD Ot K63.9 DISEASE OF INTESTINE, UNSPECIFIED 08/24/2017 RICHMOND PADILLA MD Ot R53.81 OTHER MALAISE 08/24/2017 RICHMOND PADILLA MD, Ot 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+] 08/24/2017 RICHMOND PADILLA MD Ot Z68.33 BODY MASS INDEX (BMI) 33.0-33.9, ADULT 08/24/2017 RICHMOND PADILLA MD Ot Z79.4 SHELTER (CURRENT) USE OF INSULIN 08/24/2017 RICHMOND PADILLA MD Ot Z79.899 OTHER SHELTER (CURRENT) DRUG THERAPY 08/24/2017 RICHMOND PADILLA MD Ot Z90.710 ACQUIRED ABSENCE OF BOTH CERVIX AND UTER 09/09/2017 RICHMOND PADILLA MD Ot 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 09/17/2017 RICHMOND PADILLA MD Ot 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 10/06/2017 RICHMOND PADILLA MD Ot 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 10/06/2017 RICHMOND PADILLA MD Ot 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 ENDOMETRIUM 10/06/2017 RICHMOND PADILLA MD, Ot E11.319 TYPE 2 DIABETES W UNSP DIABETIC RTNOP W/ 10/06/2017 RICHMOND PADILLA MD, Ot E11.40 TYPE 2 DIABETES MELLITUS WITH DIABETIC N 10/06/2017 RICHMOND PADILLA MD, Ot E66.9 OBESITY, UNSPECIFIED 10/06/2017 RICHMOND PADILLA MD Ot I10 ESSENTIAL (PRIMARY) HYPERTENSION 10/06/2017 RICHMOND PADILLA MD, Ot K63.9 DISEASE OF INTESTINE, UNSPECIFIED 10/06/2017 RICHMOND PADILLA MD, Ot R53.81 OTHER MALAISE 10/06/2017 RICHMOND PADILLA MD, Ot 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+] 10/06/2017 RICHMOND PADILLA MD, Ot Z68.33 BODY MASS INDEX (BMI) 33.0-33.9, ADULT 10/06/2017 RICHMOND PADILLA MD, Ot Z79.4 LOAN REVIEW ANALYST (CURRENT) USE OF INSULIN 10/06/2017 RICHMOND PADILLA MD, Ot 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 10/06/2017 RICHMOND PADILLA MD, Ot Z90.710 ACQUIRED ABSENCE OF BOTH CERVIX AND UTER 10/07/2017 JOSE ARMANDO FREY FACC, NOEMI FACP CCDS Ot 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 10/07/2017 JOSE ARMANDO FREY FACC, NOEMI FACP CCDS Ot 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 ENDOMETRIUM 10/07/2017 JOSE ARMANDO FREY FACC, NOEMI FACP CCDS Ot E11.9 TYPE 2 DIABETES MELLITUS WITHOUT COMPLIC 10/07/2017 JOSE ARMANDO FREY FACC, ALI FACP CCDS Ot 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, [place]FINED [place] 10/07/2017 JOSE ARMANDO FREY FACC, ALI FACP CCDS Ot R06.02 SHORTNESS OF BREATH 10/07/2017 JOSE ARMANDO FREY FACC, ALI FACP CCDS Ot R94.31 ABNORMAL ELECTROCARDIOGRAM [ECG] [EKG] 10/08/2017 JOSE ARMANDO FREY FACC, ALI FACP CCDS Ot 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 10/08/2017 JOSE ARMANDO FREY FACC, ALI FACP CCDS Ot 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 ENDOMETRIUM 10/08/2017 JOSE ARMANDO FREY FACC, ALI FACP CCDS Ot E11.9 TYPE 2 DIABETES MELLITUS WITHOUT COMPLIC 10/08/2017 JOSE ARMANDO MD FACC, ALI FACP CCDS Ot 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, [place]FINED [place] 10/08/2017 JOSE ARMANDO FREY FACC, ALI FACP CCDS Ot R06.02 SHORTNESS OF BREATH 10/08/2017 JOSE ARMANDO MD FACC, ALI FACP CCDS Ot R94.31 ABNORMAL ELECTROCARDIOGRAM [ECG] [EKG] 10/12/2017 RICHMOND PADILLA MD Ot 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 10/28/2017 JOSE ARMANDO MD FACC, ALI FACP CCDS Ot 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 10/28/2017 JOSE ARMANDO MD FACC, ALI FACP CCDS Ot 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 ENDOMETRIUM 10/28/2017 JOSE ARMANDO MD FACC, ALI FACP CCDS Ot E11.9 TYPE 2 DIABETES MELLITUS WITHOUT COMPLIC 10/28/2017 JOSE ARMANDO MD FACC, ALI FACP CCDS Ot 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, [place]FINED [place] 10/28/2017 JOSE ARMANDO FREY FACC, ALI FACP CCDS Ot R06.02 SHORTNESS OF BREATH 10/28/2017 JOSE ARMANDO FREY FACC, ALI FACP CCDS Ot R94.31 ABNORMAL ELECTROCARDIOGRAM [ECG] [EKG] 10/28/2017 JOSE ARMANDO FREY FACC, ALI FACP CCDS Ot 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 10/28/2017 JOSE ARMANDO FREY FACC, ALI FACP CCDS Ot 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 ENDOMETRIUM 10/28/2017 JOSE ARMANDO FREY FACC, ALI FACP CCDS Ot E11.9 TYPE 2 DIABETES MELLITUS WITHOUT COMPLIC 10/28/2017 JOSE ARMANDO MD FACC, ALI FACP CCDS Ot 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, [place]FINED [place] 10/28/2017 JOSE ARMANDO FREY FACC, ALI FACP CCDS Ot R06.02 SHORTNESS OF BREATH 10/28/2017 JOSE ARMANDO FREY FACC, ALI FACP CCDS Ot R94.31 ABNORMAL ELECTROCARDIOGRAM [ECG] [EKG] 11/19/2017 RICHMOND PADILLA MD Ot 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 11/19/2017 RICHMOND PADILLA MD Ot 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 ENDOMETRIUM 11/19/2017 RICHMOND PADILLA MD Ot E11.319 TYPE 2 DIABETES W UNSP DIABETIC RTNOP W/ 11/19/2017 RICHMOND PADILLA MD Ot E11.40 TYPE 2 DIABETES MELLITUS WITH DIABETIC N 11/19/2017 RICHMOND PADILLA MD Ot E66.9 OBESITY, UNSPECIFIED 11/19/2017 RICHMOND PADILLA MD Ot I10 ESSENTIAL (PRIMARY) HYPERTENSION 11/19/2017 RICHMOND PADILLA MD Ot K63.9 DISEASE OF INTESTINE, UNSPECIFIED 11/19/2017 RICHMOND PADILLA MD Ot R53.81 OTHER MALAISE 11/19/2017 RICHMOND PADILLA MD Ot 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+] 11/19/2017 RICHMOND PADILLA MD Ot Z68.33 BODY MASS INDEX (BMI) 33.0-33.9, ADULT 11/19/2017 RICHMOND PADILLA MD Ot Z79.4 SHELTER (CURRENT) USE OF INSULIN 11/19/2017 RICHMOND PADILLA MD Ot Z79.899 OTHER SHELTER (CURRENT) DRUG THERAPY 11/19/2017 RICHMOND PADILLA MD Ot Z90.710 ACQUIRED ABSENCE OF BOTH CERVIX AND UTER 11/20/2017 RICHMOND PADILLA MD Ot 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 11/20/2017 RICHMOND PADILLA MD Ot 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 ENDOMETRIUM 11/20/2017 RICHMOND PADILLA MD Ot E11.319 TYPE 2 DIABETES W UNSP DIABETIC RTNOP W/ 11/20/2017 RICHMOND PADLILA MD Ot E11.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 2 DIABETES MELLITUS WITH DIABETIC N 11/20/2017 RICHMOND PADILLA MD Ot E66.9 OBESITY, UNSPECIFIED 11/20/2017 RICHMOND PADILLA MD Ot I10 ESSENTIAL (PRIMARY) HYPERTENSION 11/20/2017 RICHMOND PADILLA MD Ot K63.9 DISEASE OF INTESTINE, UNSPECIFIED 11/20/2017 RICHMOND PADILLA MD Ot R53.81 OTHER MALAISE 11/20/2017 RICHMOND PADILLA MD Ot R82.99 OTHER ABNORMAL FINDINGS IN URINE 11/20/2017 RICHMOND PADILLA MD Ot 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+] 11/20/2017 RICHMOND PADILLA MD Ot Z45.2 ENCOUNTER FOR ADJUSTMENT AND MANAGEMENT 11/20/2017 RICHMOND PADILLA MD Ot Z68.33 BODY MASS INDEX (BMI) 33.0-33.9, ADULT 11/20/2017 RICHMOND PADILLA MD Ot Z79.4 SHELTER (CURRENT) USE OF INSULIN 11/20/2017 RICHMOND PADILLA MD Ot 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 11/20/2017 RICHMOND PADILLA MD Ot Z90.710 ACQUIRED ABSENCE OF BOTH CERVIX AND UTER 11/25/2017 TELMA GRIER MD, Ot Z01.818 ENCOUNTER FOR OTHER PREPROCEDURAL EXAMIN 11/25/2017 TELMA GRIER MD, Ot Z12.11 ENCOUNTER FOR SCREENING FOR MALIGNANT NE 11/27/2017 TELMA GRIER MD, Ot 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 11/27/2017 TELMA GRIER MD, Ot 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 ENDOMETRIUM 11/27/2017 TELMA GRIER MD Ot E11.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 2 DIABETES MELLITUS WITH DIABETIC N 11/27/2017 TELMA GRIER MD Ot I10 ESSENTIAL (PRIMARY) HYPERTENSION 11/27/2017 TELMA GRIER MD Ot K57.30 DVRTCLOS OF LG INT W/O PERFORATION OR AB 11/27/2017 TELMA GRIER MD, Ot 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 11/27/2017 TELMA GRIER MD Ot 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+] 11/27/2017 TELMA GRIER MD, Ot Z79.4 SHELTER (CURRENT) USE OF INSULIN 11/27/2017 TELMA GRIER MD, Ot Z79.899 OTHER SHELTER (CURRENT) DRUG THERAPY 11/27/2017 TELMA GRIER MD, Ot Z87.19 PERSONAL HISTORY OF OTHER DISEASES OF TH 11/27/2017 TELMA GRIER MD Ot Z90.710 ACQUIRED ABSENCE OF BOTH CERVIX AND UTER 11/30/2017 TELMA GRIER MD, Ot 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 11/30/2017 TELMA GRIER MD Ot 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 ENDOMETRIUM 11/30/2017 TELMA GRIER MD Ot E11.40 TYPE 2 DIABETES MELLITUS WITH DIABETIC N 11/30/2017 TELMA GRIER MD Ot I10 ESSENTIAL (PRIMARY) HYPERTENSION 11/30/2017 TELMA GRIER MD Ot K57.30 DVRTCLOS OF LG INT W/O PERFORATION OR AB 11/30/2017 TELMA GRIER MD, Ot 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 11/30/2017 TELMA GRIER MD, Ot 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+] 11/30/2017 TELMA GRIER MD, Ot Z79.4 SHELTER (CURRENT) USE OF INSULIN 11/30/2017 TELMA GRIER MD, Ot 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 11/30/2017 TELMA GRIER MD, Ot Z87.19 PERSONAL HISTORY OF OTHER DISEASES OF TH 11/30/2017 TELMA GRIER MD, Ot Z90.710 ACQUIRED ABSENCE OF BOTH CERVIX AND UTER 12/09/2017 RICHMOND PADILLA MD Ot 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 12/09/2017 RICHMOND PADILLA MD, Ot 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 ENDOMETRIUM 12/09/2017 RICHMOND PADILLA MD Ot E11.319 TYPE 2 DIABETES W UNSP DIABETIC RTNOP W/ 12/09/2017 RICHMOND PADILLA MD Ot E11.40 TYPE 2 DIABETES MELLITUS WITH DIABETIC N 12/09/2017 RICHMOND PADILLA MD Ot E66.9 OBESITY, UNSPECIFIED 12/09/2017 RICHMOND PADILLA MD Ot I10 ESSENTIAL (PRIMARY) HYPERTENSION 12/09/2017 RICHMOND PADILLA MD, Ot K63.9 DISEASE OF INTESTINE, UNSPECIFIED 12/09/2017 RICHMOND PADILLA MD Ot R53.81 OTHER MALAISE 12/09/2017 RICHMOND PADILLA MD, Ot 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+] 12/09/2017 RICHMOND PADILLA MD Ot Z68.33 BODY MASS INDEX (BMI) 33.0-33.9, ADULT 12/09/2017 RICHMOND PADILLA MD, Ot Z79.4 SHELTER (CURRENT) USE OF INSULIN 12/09/2017 RICHMOND PADILLA MD Ot Z79.899 OTHER SHELTER (CURRENT) DRUG THERAPY 12/09/2017 RICHMOND PADILLA MD Ot Z90.710 ACQUIRED ABSENCE OF BOTH CERVIX AND UTER 12/11/2017 RICHMOND PADILLA MD Ot 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 12/11/2017 RICHMOND PADILLA MD Ot 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 ENDOMETRIUM 12/11/2017 RICHMOND PADILLA MD Ot E11.319 TYPE 2 DIABETES W UNSP DIABETIC RTNOP W/ 12/11/2017 RICHMOND PADILLA MD, Ot E11.40 TYPE 2 DIABETES MELLITUS WITH DIABETIC N 12/11/2017 RICHMOND PADILLA MD, Ot E66.9 OBESITY, UNSPECIFIED 12/11/2017 RICHMOND PADILLA MD, Ot I10 ESSENTIAL (PRIMARY) HYPERTENSION 12/11/2017 RICHMOND PADILLA MD, Ot K63.9 DISEASE OF INTESTINE, UNSPECIFIED 12/11/2017 RICHMOND PADILLA MD, Ot R53.81 OTHER MALAISE 12/11/2017 RICHMOND PADILLA MD, Ot 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+] 12/11/2017 RICHMOND PADILLA MD, Ot Z68.33 BODY MASS INDEX (BMI) 33.0-33.9, ADULT 12/11/2017 RICHMOND PADILLA MD, Ot Z79.4 SHELTER (CURRENT) USE OF INSULIN 12/11/2017 RICHMOND PADILLA MD, Ot 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 12/11/2017 RICHMOND PADILLA MD, Ot Z90.710 ACQUIRED ABSENCE OF BOTH CERVIX AND UTER 12/15/2017 TELMA GRIER MD, Ot 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 12/15/2017 TELMA GRIER MD, Ot 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 ENDOMETRIUM 12/15/2017 TELMA GRIER MD, Ot E11.40 TYPE 2 DIABETES MELLITUS WITH DIABETIC N 12/15/2017 TELMA GRIER MD, Ot I10 ESSENTIAL (PRIMARY) HYPERTENSION 12/15/2017 TELMA GRIER MD, Ot K57.30 DVRTCLOS OF LG INT W/O PERFORATION OR AB 12/15/2017 TELMA GRIER MD, Ot 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 12/15/2017 TELMA GRIER MD, Ot 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+] 12/15/2017 TELMA GRIER MD, Ot Z79.4 LOAN REVIEW ANALYST (CURRENT) USE OF INSULIN 12/15/2017 TELMA GRIER MD, Ot 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 12/15/2017 TELMA GRIER MD, Ot Z87.19 PERSONAL HISTORY OF OTHER DISEASES OF TH 12/15/2017 TELMA GRIER MD, Ot Z90.710 ACQUIRED ABSENCE OF BOTH CERVIX AND UTER 12/29/2017 YANA HODGSON MD, Ot L95.9 VASCULITIS LIMITED TO THE SKIN, UNSPECIF 12/29/2017 YANA HODGSON MD, Ot L97.211 NON-PRS CHRONIC ULCER OF RIGHT CALF LIMI 12/29/2017 YANA HODGSON MD, Ot L97.221 NON-PRS CHRONIC ULCER OF LEFT CALF LIMIT 12/29/2017 YANA HODGSON MD, Ot L98.491 NON-PRS CHRONIC ULCER SKIN/ SITES LIMITE 01/06/2018 RICHMOND PADILLA MD Ot 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 01/06/2018 RICHMOND PADILLA MD, Ot 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 ENDOMETRIUM 01/06/2018 RICHMOND PADILLA MD Ot E11.319 TYPE 2 DIABETES W UNSP DIABETIC RTNOP W/ 01/06/2018 RICHMOND PADILLA MD, Ot E11.40 TYPE 2 DIABETES MELLITUS WITH DIABETIC N 01/06/2018 RICHMOND PADILLA MD Ot E66.9 OBESITY, UNSPECIFIED 01/06/2018 RICHMOND PADILLA MD Ot I10 ESSENTIAL (PRIMARY) HYPERTENSION 01/06/2018 RICHMOND PADILLA MD Ot K63.9 DISEASE OF INTESTINE, UNSPECIFIED 01/06/2018 RICHMOND PADILLA MD Ot R53.81 OTHER MALAISE 01/06/2018 RICHMOND PADILLA MD Ot 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+] 01/06/2018 RICHMOND PADILLA MD Ot Z68.33 BODY MASS INDEX (BMI) 33.0-33.9, ADULT 01/06/2018 RICHMOND PADILLA MD Ot Z79.4 LOAN REVIEW ANALYST (CURRENT) USE OF INSULIN 01/06/2018 RICHMOND PADILLA MD, Ot Z79.899 OTHER SHELTER (CURRENT) DRUG THERAPY 01/06/2018 RICHMOND PADILLA MD Ot Z90.710 ACQUIRED ABSENCE OF BOTH CERVIX AND UTER 01/19/2018 YANA HODGSON MD, Ot L95.9 VASCULITIS LIMITED TO THE SKIN, UNSPECIF 01/19/2018 YANA HODGSON MD, Ot L97.211 NON-PRS CHRONIC ULCER OF RIGHT CALF LIMI 01/19/2018 YANA HODGSON MD, Ot L97.221 NON-PRS CHRONIC ULCER OF LEFT CALF LIMIT 01/19/2018 YANA HODGSON MD, Ot L98.491 NON-PRS CHRONIC ULCER SKIN/ SITES LIMITE 01/20/2018 YANA HODGSON MD, Ot L95.9 VASCULITIS LIMITED TO THE SKIN, UNSPECIF 01/20/2018 YANA HODGSON MD, Ot L97.211 NON-PRS CHRONIC ULCER OF RIGHT CALF LIMI 01/20/2018 YANA HODGSON MD Ot L97.221 NON-PRS CHRONIC ULCER OF LEFT CALF LIMIT 01/20/2018 YANA HODGSON MD Ot L98.491 NON-PRS CHRONIC ULCER SKIN/ SITES LIMITE 01/20/2018 YANA HODGSON MD, Ot L95.9 VASCULITIS LIMITED TO THE SKIN, UNSPECIF 01/20/2018 YANA HODGSON MD, Ot L97.211 NON-PRS CHRONIC ULCER OF RIGHT CALF LIMI 01/20/2018 YANA HODGSON MD, Ot L97.221 NON-PRS CHRONIC ULCER OF LEFT CALF LIMIT 01/20/2018 YANA HODGSON MD, Ot L98.491 NON-PRS CHRONIC ULCER SKIN/ SITES LIMITE 01/26/2018 YANA HODGSON MD, Ot L95.9 VASCULITIS LIMITED TO THE SKIN, UNSPECIF 01/26/2018 YANA HODGSON MD Ot L97.211 NON-PRS CHRONIC ULCER OF RIGHT CALF LIMI 01/26/2018 YANA HODGSON MD Ot L97.221 NON-PRS CHRONIC ULCER OF LEFT CALF LIMIT 01/26/2018 YANA HODGSON MD, Ot L98.491 NON-PRS CHRONIC ULCER SKIN/ SITES LIMITE 02/10/2018 YANA HODGSON MD, Ot L95.9 VASCULITIS LIMITED TO THE SKIN, UNSPECIF 02/10/2018 YANA HODGSON MD Ot L97.211 NON-PRS CHRONIC ULCER OF RIGHT CALF LIMI 02/10/2018 YANA HODGSON MD Ot L97.221 NON-PRS CHRONIC ULCER OF LEFT CALF LIMIT 02/10/2018 YANA HODGSON MD, Ot L98.491 NON-PRS CHRONIC ULCER SKIN/ SITES LIMITE 02/18/2018 RICHMOND PADILLA MD Ot 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 02/18/2018 RICHMOND PADILLA MD, Ot 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 ENDOMETRIUM 02/18/2018 RICHMOND PADILLA MD Ot E11.319 TYPE 2 DIABETES W UNSP DIABETIC RTNOP W/ 02/18/2018 RICHMOND PADILLA MD Ot E11.40 TYPE 2 DIABETES MELLITUS WITH DIABETIC N 02/18/2018 RICHMOND PADILLA MD, Ot E66.9 OBESITY, UNSPECIFIED 02/18/2018 RICHMOND PADILLA MD Ot I10 ESSENTIAL (PRIMARY) HYPERTENSION 02/18/2018 RICHMOND PADILLA MD, Ot K63.9 DISEASE OF INTESTINE, UNSPECIFIED 02/18/2018 RICHMOND PADILLA MD, Ot R53.81 OTHER MALAISE 02/18/2018 RICHMOND PADILLA MD, Ot 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+] 02/18/2018 RICHMOND PADILLA MD, Ot Z68.33 BODY MASS INDEX (BMI) 33.0-33.9, ADULT 02/18/2018 RICHMOND PADILLA MD, Ot Z79.4 SHELTER (CURRENT) USE OF INSULIN 02/18/2018 RICHMOND PADILLA MD, Ot 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 02/18/2018 RICHMOND PADILLA MD, Ot Z90.710 ACQUIRED ABSENCE OF BOTH CERVIX AND UTER 02/22/2018 YANA HODGSON MD, Ot L95.9 VASCULITIS LIMITED TO THE SKIN, UNSPECIF 02/22/2018 YANA HODGSON MD, Ot L97.211 NON-PRS CHRONIC ULCER OF RIGHT CALF LIMI 02/22/2018 YANA HODGSON MD, Ot L97.221 NON-PRS CHRONIC ULCER OF LEFT CALF LIMIT 02/22/2018 YANA HODGSON MD, Ot L98.491 NON-PRS CHRONIC ULCER SKIN/ SITES LIMITE 03/10/2018 RICHMOND PADILLA MD, Ot 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 03/10/2018 RICHMOND PADILAL MD, Ot 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 ENDOMETRIUM 03/10/2018 RICHMOND PADILLA MD Ot E11.319 TYPE 2 DIABETES W UNSP DIABETIC RTNOP W/ 03/10/2018 RICHMOND PADILLA MD, Ot E11.40 TYPE 2 DIABETES MELLITUS WITH DIABETIC N 03/10/2018 RICHMOND PADILLA MD, Ot E66.9 OBESITY, UNSPECIFIED 03/10/2018 RICHMOND PADILLA MD, Ot I10 ESSENTIAL (PRIMARY) HYPERTENSION 03/10/2018 RICHMOND PADILLA MD, Ot K63.9 DISEASE OF INTESTINE, UNSPECIFIED 03/10/2018 RICHMOND PADILLA MD, Ot R53.81 OTHER MALAISE 03/10/2018 RICHMOND PADILLA MD, Ot 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+] 03/10/2018 RICHMOND PADILLA MD, Ot Z68.33 BODY MASS INDEX (BMI) 33.0-33.9, ADULT 03/10/2018 RICHMOND PADILLA MD Ot Z79.4 SHELTER (CURRENT) USE OF INSULIN 03/10/2018 RICHMOND PADILLA MD Ot 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 03/10/2018 RICHMOND PADILLA MD Ot Z90.710 ACQUIRED ABSENCE OF BOTH CERVIX AND UTER 03/11/2018 RICHMOND PADILLA MD Ot 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 03/11/2018 RICHMOND PADILLA MD Ot 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 ENDOMETRIUM 03/11/2018 RICHMOND PADILLA MD Ot E11.319 TYPE 2 DIABETES W UNSP DIABETIC RTNOP W/ 03/11/2018 RICHMOND PADILLA MD Ot E11.40 TYPE 2 DIABETES MELLITUS WITH DIABETIC N 03/11/2018 RICHMOND PADILLA MD Ot E66.9 OBESITY, UNSPECIFIED 03/11/2018 RICHMOND PADILLA MD Ot I10 ESSENTIAL (PRIMARY) HYPERTENSION 03/11/2018 RICHMOND PADILLA MD Ot K63.9 DISEASE OF INTESTINE, UNSPECIFIED 03/11/2018 RICHMOND PADILLA MD Ot R53.81 OTHER MALAISE 03/11/2018 RICHMOND PADILLA MD Ot 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+] 03/11/2018 RICHMOND PADILLA MD Ot Z68.33 BODY MASS INDEX (BMI) 33.0-33.9, ADULT 03/11/2018 RICHMOND PADILLA MD Ot Z79.4 SHELTER (CURRENT) USE OF INSULIN 03/11/2018 RICHMOND PADILLA MD Ot 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 03/11/2018 RICHMOND PADILLA MD Ot Z90.710 ACQUIRED ABSENCE OF BOTH CERVIX AND UTER 03/19/2018 RICHMOND PADILLA MD Ot 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 03/19/2018 RICHMOND PADILLA MD Ot 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 ENDOMETRIUM 03/19/2018 RICHMOND PADILLA MD Ot E11.319 TYPE 2 DIABETES W UNSP DIABETIC RTNOP W/ 03/19/2018 RICHMOND PADILLA MD Ot E11.40 TYPE 2 DIABETES MELLITUS WITH DIABETIC N 03/19/2018 RICHMOND PADILLA MD Ot E66.9 OBESITY, UNSPECIFIED 03/19/2018 RICHMOND PADILLA MD Ot I10 ESSENTIAL (PRIMARY) HYPERTENSION 03/19/2018 RICHMOND PADILLA MD Ot K63.9 DISEASE OF INTESTINE, UNSPECIFIED 03/19/2018 RICHMOND PADILLA MD Ot R53.81 OTHER MALAISE 03/19/2018 RICHMOND PADILLA MD Ot 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+] 03/19/2018 RICHMOND PADILLA MD Ot Z68.33 BODY MASS INDEX (BMI) 33.0-33.9, ADULT 03/19/2018 RICHMOND PADILLA MD Ot Z79.4 SHELTER (CURRENT) USE OF INSULIN 03/19/2018 RICHMOND PADILLA MD Ot 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 03/19/2018 RICHMOND PADILLA MD Ot Z90.710 ACQUIRED ABSENCE OF BOTH CERVIX AND UTER 05/04/2018 RICHMOND PADILLA MD Ot 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 05/04/2018 RICHMOND PADILLA MD Ot 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 ENDOMETRIUM 05/04/2018 RICHMOND PADILLA MD Ot E11.319 TYPE 2 DIABETES W UNSP DIABETIC RTNOP W/ 05/04/2018 RICHMOND PADILLA MD Ot E11.40 TYPE 2 DIABETES MELLITUS WITH DIABETIC N 05/04/2018 RICHMOND PADILLA MD Ot E66.9 OBESITY, UNSPECIFIED 05/04/2018 RICHMOND PADILLA MD Ot I10 ESSENTIAL (PRIMARY) HYPERTENSION 05/04/2018 RICHMOND PADILLA MD, Ot K63.9 DISEASE OF INTESTINE, UNSPECIFIED 05/04/2018 RICHMOND PADILLA MD Ot R53.81 OTHER MALAISE 05/04/2018 RICHMOND PADILLA MD Ot 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+] 05/04/2018 RICHMOND PADILLA MD Ot Z68.33 BODY MASS INDEX (BMI) 33.0-33.9, ADULT 05/04/2018 RICHMOND PADILLA MD Ot Z79.4 SHELTER (CURRENT) USE OF INSULIN 05/04/2018 RICHMOND PADILLA MD Ot Z79.899 OTHER SHELTER (CURRENT) DRUG THERAPY 05/04/2018 RICHMOND PADILLA MD Ot Z90.710 ACQUIRED ABSENCE OF BOTH CERVIX AND UTER 05/14/2018 YANA HODGSON MD Ot L95.9 VASCULITIS LIMITED TO THE SKIN, UNSPECIF 05/14/2018 YANA HODGSON MD Ot L97.211 NON-PRS CHRONIC ULCER OF RIGHT CALF LIMI 05/14/2018 YANA HODGSON MD, Ot L97.221 NON-PRS CHRONIC ULCER OF LEFT CALF LIMIT 05/14/2018 YANA HODGSON MD, Ot L98.491 NON-PRS CHRONIC ULCER SKIN/ SITES LIMITE 05/14/2018 YANA HODGSON MD, Ot Z46.89 ENCOUNTER FOR FITTING AND ADJUSTMENT OF Procedures There is no data. Results Test Result Range Bacterial urine culture - 04/17/16 15:25 Bacterial urine culture [id number] NRG COLONY COUNT >100,000/ML NRG FTX;REPORTABLE SENSITIVITY REPORTED 04/19/16 11:40 NRG Bacterial susceptibility panel - 04/17/16 15:25 Oxacillin susceptibility test by minimum inhibitory concentration > = NRG Gentamicin susceptibility test by minimum inhibitory concentration < = NRG Trimethoprim/sulfamethoxazole susceptibility test by minimum inhibitoryconcentration 80 NRG Vancomycin susceptibility test by minimum inhibitory concentration 1 NRG Levofloxacin susceptibility test by minimum inhibitory concentration >= NRG Rifampin susceptibility test by minimum inhibitory concentration <= NRG Tetracycline susceptibility test by minimum inhibitory concentration 2 NRG Ciprofloxacin susceptibility test by minimum inhibitory concentration R NRG Stool occult blood screen - 04/23/16 09:40 Stool gastrointestinal hemoglobin detection POSITIVE NEGATIVE Clostridium difficile detection - 04/23/16 09:40 C DIFF MOLECULAR RESULT Negative for toxigenic C diff by DNA amplification NRG Complete urinalysis with reflex to culture - 06/12/16 09:00 Urine color determination YELLOW NRG Urine clarity determination CLEAR NRG Urine pH measurement by test strip 6 5-9 Specific gravity of urine by test strip 1.010 1.016- 1.022 Urine protein assay by test strip, semi-quantitative 1+ NEGATIVE Urine glucose detection by automated test strip NEGATIVE NEGATIVE Erythrocytes detection in urine sediment by light microscopy NEGATIVE NEGATIVE Urine ketones detection by automated test strip NEGATIVE NEGATIVE Urine nitrite detection by test strip NEGATIVE NEGATIVE Urine total bilirubin detection by test strip NEGATIVE NEGATIVE Urine urobilinogen measurement by automated test strip (mass/volume) NORMAL NORMAL Urine leukocyte esterase detection by dipstick NEGATIVE NEGATIVE Automated urine sediment erythrocyte count by microscopy (number/high power field) NONE NRG Automated urine sediment leukocyte count by microscopy (number/high power field ) NONE NRG Bacteria detection in urine sediment by light microscopy NEGATIVE NRG Squamous epithelial cells detection in urine sediment by light microscopy NONE NRG Crystals detection in urine sediment by light microscopy NONE NRG Casts detection in urine sediment by light microscopy NONE NRG Mucus detection in urine sediment by light microscopy NEGATIVE NRG Complete urinalysis with reflex to culture NO NRG Complete blood count (CBC) with automated white blood cell (WBC) differential - 02/19/17 14:24 Blood leukocytes automated count (number/volume) 5.8 10*3/uL 4.3-11.0 Blood erythrocytes automated count (number/volume) 2.78 10*6/uL 4.35-5.85 Venous blood hemoglobin measurement (mass/volume) 8.9 g/dL 11.5-16.0 Blood hematocrit (volume fraction) 27 % 35-52 Automated erythrocyte mean corpuscular volume 98 [foz_us] 80-99 Automated erythrocyte mean corpuscular hemoglobin (mass per erythrocyte) 32 pg 25-34 Automated erythrocyte mean corpuscular hemoglobin concentration measurement ( mass/volume) 33 g/dL 32-36 Automated erythrocyte distribution width ratio 13.3 % 10.0-14.5 Automated blood platelet count (count/volume) 300 10*3/uL 130-400 Automated blood platelet mean volume measurement 9.0 [foz_us] 7.4-10.4 Automated blood neutrophils/100 leukocytes 78 % 42-75 Automated blood lymphocytes/100 leukocytes 10 % 12-44 Blood monocytes/100 leukocytes 9 % 0-12 Automated blood eosinophils/100 leukocytes 3 % 0-10 Automated blood basophils/100 leukocytes 1 % 0-10 Blood neutrophils automated count (number/volume) 4.5 10*3 1.8-7.8 Blood lymphocytes automated count (number/volume) 0.6 10*3 1.0-4.0 Blood monocytes automated count (number/volume) 0.5 10*3 0.0-1.0 Automated eosinophil count 0.2 10*3/uL 0.0-0.3 Automated blood basophil count (count/volume) 0.0 10*3/uL 0.0-0.1 Comprehensive metabolic panel - 02/19/17 14:24 Serum or plasma sodium measurement (moles/volume) 136 mmol/L 135-145 Serum or plasma potassium measurement (moles/volume) 4.7 mmol/L 3.6-5.0 Serum or plasma chloride measurement (moles/volume) 105 mmol/L 98-107 Carbon dioxide 21 mmol/L 21-32 Serum or plasma anion gap determination (moles/volume) 10 mmol/L 5-14 Serum or plasma urea nitrogen measurement (mass/volume) 22 mg/dL 7-18 Serum or plasma creatinine measurement (mass/volume) 1.47 mg/dL 0.60-1.30 Serum or plasma urea nitrogen/creatinine mass ratio 15 NRG Serum or plasma creatinine measurement with calculation of estimated glomerular filtration rate 34 NRG Serum or plasma glucose measurement (mass/volume) 173 mg/dL 70-105 Serum or plasma calcium measurement (mass/volume) 8.8 mg/dL 8.5-10.1 Serum or plasma total bilirubin measurement (mass/volume) 0.4 mg/dL 0.1-1.0 Serum or plasma alkaline phosphatase measurement (enzymatic activity/volume) 65 U/L 40-136 Serum or plasma aspartate aminotransferase measurement (enzymatic activity/ volume) 15 U/L 5-34 Serum or plasma alanine aminotransferase measurement (enzymatic activity/volume ) 9 U/L 0-55 Serum or plasma protein measurement (mass/volume) 5.9 g/dL 6.4-8.2 Serum or plasma albumin measurement (mass/volume) 3.3 g/dL 3.2-4.5 Capillary blood glucose measurement by glucometer (mass/volume) - 02/20/17 06: 03 Capillary blood glucose measurement by glucometer (mass/volume) 113 mg/dL 70-110 Capillary blood glucose measurement by glucometer (mass/volume) - 02/20/17 11: 28 Capillary blood glucose measurement by glucometer (mass/volume) 94 mg/dL 70-110 Fungus culture - 02/20/17 12:08 FUNGUS REPORT NO FUNGUS GROWTH OBSERVED NR Capillary blood glucose measurement by glucometer (mass/volume) - 02/20/17 16: 36 Capillary blood glucose measurement by glucometer (mass/volume) 74 mg/dL 70-110 Capillary blood glucose measurement by glucometer (mass/volume) - 02/20/17 21: 10 Capillary blood glucose measurement by glucometer (mass/volume) 87 mg/dL 70-110 Complete blood count (CBC) with automated white blood cell (WBC) differential - 02/21/17 05:23 Blood leukocytes automated count (number/volume) 4.0 10*3/uL 4.3-11.0 Blood erythrocytes automated count (number/volume) 2.38 10*6/uL 4.35-5.85 Venous blood hemoglobin measurement (mass/volume) 7.7 g/dL 11.5-16.0 Blood hematocrit (volume fraction) 24 % 35-52 Automated erythrocyte mean corpuscular volume 101 [foz_us] 80-99 Automated erythrocyte mean corpuscular hemoglobin (mass per erythrocyte) 32 pg 25-34 Automated erythrocyte mean corpuscular hemoglobin concentration measurement ( mass/volume) 32 g/dL 32-36 Automated erythrocyte distribution width ratio 13.6 % 10.0-14.5 Automated blood platelet count (count/volume) 214 10*3/uL 130-400 Automated blood platelet mean volume measurement 8.6 [foz_us] 7.4-10.4 Automated blood neutrophils/100 leukocytes 65 % 42-75 Automated blood lymphocytes/100 leukocytes 13 % 12-44 Blood monocytes/100 leukocytes 11 % 0-12 Automated blood eosinophils/100 leukocytes 10 % 0-10 Automated blood basophils/100 leukocytes 1 % 0-10 Blood neutrophils automated count (number/volume) 2.6 10*3 1.8-7.8 Blood lymphocytes automated count (number/volume) 0.5 10*3 1.0-4.0 Blood monocytes automated count (number/volume) 0.5 10*3 0.0-1.0 Automated eosinophil count 0.4 10*3/uL 0.0-0.3 Automated blood basophil count (count/volume) 0.0 10*3/uL 0.0-0.1 Comprehensive metabolic panel - 02/21/17 05:23 Serum or plasma sodium measurement (moles/volume) 139 mmol/L 135-145 Serum or plasma potassium measurement (moles/volume) 4.2 mmol/L 3.6-5.0 Serum or plasma chloride measurement (moles/volume) 113 mmol/L 98-107 Carbon dioxide 17 mmol/L 21-32 Serum or plasma anion gap determination (moles/volume) 9 mmol/L 5-14 Serum or plasma urea nitrogen measurement (mass/volume) 12 mg/dL 7-18 Serum or plasma creatinine measurement (mass/volume) 0.92 mg/dL 0.60-1.30 Serum or plasma urea nitrogen/creatinine mass ratio 13 NRG Serum or plasma creatinine measurement with calculation of estimated glomerular filtration rate 59 NRG Serum or plasma glucose measurement (mass/volume) 61 mg/dL 70-105 Serum or plasma calcium measurement (mass/volume) 8.1 mg/dL 8.5-10.1 Serum or plasma total bilirubin measurement (mass/volume) 0.2 mg/dL 0.1-1.0 Serum or plasma alkaline phosphatase measurement (enzymatic activity/volume) 66 U/L 40-136 Serum or plasma aspartate aminotransferase measurement (enzymatic activity/ volume) 15 U/L 5-34 Serum or plasma alanine aminotransferase measurement (enzymatic activity/volume ) 9 U/L 0-55 Serum or plasma protein measurement (mass/volume) 4.8 g/dL 6.4-8.2 Serum or plasma albumin measurement (mass/volume) 2.9 g/dL 3.2-4.5 Capillary blood glucose measurement by glucometer (mass/volume) - 02/21/17 11: 12 Capillary blood glucose measurement by glucometer (mass/volume) 77 mg/dL 70-110 [id number] - 04/29/17 10:39 Serum or plasma urea nitrogen measurement (mass/volume) 30 mg/dL 7-18 Serum or plasma creatinine measurement (mass/volume) 1.42 mg/dL 0.60-1.30 Serum or plasma urea nitrogen/creatinine mass ratio 21 NRG Serum or plasma creatinine measurement with calculation of estimated glomerular filtration rate 36 NRG Complete blood count (CBC) with automated white blood cell (WBC) differential - 05/07/17 11:27 Blood leukocytes automated count (number/volume) 3.6 10*3/uL 4.3-11.0 Blood erythrocytes automated count (number/volume) 3.15 10*6/uL 4.35-5.85 Venous blood hemoglobin measurement (mass/volume) 9.9 g/dL 11.5-16.0 Blood hematocrit (volume fraction) 31 % 35-52 Automated erythrocyte mean corpuscular volume 99 [foz_us] 80-99 Automated erythrocyte mean corpuscular hemoglobin (mass per erythrocyte) 31 pg 25-34 Automated erythrocyte mean corpuscular hemoglobin concentration measurement ( mass/volume) 32 g/dL 32-36 Automated erythrocyte distribution width ratio 17.3 % 10.0-14.5 Automated blood platelet count (count/volume) 224 10*3/uL 130-400 Automated blood platelet mean volume measurement 8.9 [foz_us] 7.4-10.4 Automated blood neutrophils/100 leukocytes 66 % 42-75 Automated blood lymphocytes/100 leukocytes 11 % 12-44 Blood monocytes/100 leukocytes 10 % 0-12 Automated blood eosinophils/100 leukocytes 12 % 0-10 Automated blood basophils/100 leukocytes 1 % 0-10 Blood neutrophils automated count (number/volume) 2.4 10*3 1.8-7.8 Blood lymphocytes automated count (number/volume) 0.4 10*3 1.0-4.0 Blood monocytes automated count (number/volume) 0.4 10*3 0.0-1.0 Automated eosinophil count 0.4 10*3/uL 0.0-0.3 Automated blood basophil count (count/volume) 0.0 10*3/uL 0.0-0.1 Comprehensive metabolic panel - 05/07/17 11:27 Serum or plasma sodium measurement (moles/volume) 138 mmol/L 135-145 Serum or plasma potassium measurement (moles/volume) 4.9 mmol/L 3.6-5.0 Serum or plasma chloride measurement (moles/volume) 108 mmol/L 98-107 Carbon dioxide 24 mmol/L 21-32 Serum or plasma anion gap determination (moles/volume) 6 mmol/L 5-14 Serum or plasma urea nitrogen measurement (mass/volume) 32 mg/dL 7-18 Serum or plasma creatinine measurement (mass/volume) 1.25 mg/dL 0.60-1.30 Serum or plasma urea nitrogen/creatinine mass ratio 26 NRG Serum or plasma creatinine measurement with calculation of estimated glomerular filtration rate 41 NRG Serum or plasma glucose measurement (mass/volume) 133 mg/dL 70-105 Serum or plasma calcium measurement (mass/volume) 8.9 mg/dL 8.5-10.1 Serum or plasma total bilirubin measurement (mass/volume) 0.3 mg/dL 0.1-1.0 Serum or plasma alkaline phosphatase measurement (enzymatic activity/volume) 89 U/L 40-136 Serum or plasma aspartate aminotransferase measurement (enzymatic activity/ volume) 16 U/L 5-34 Serum or plasma alanine aminotransferase measurement (enzymatic activity/volume ) 11 U/L 0-55 Serum or plasma protein measurement (mass/volume) 6.2 g/dL 6.4-8.2 Serum or plasma albumin measurement (mass/volume) 3.5 g/dL 3.2-4.5 Magnesium - 05/07/17 11:27 Magnesium 1.8 mg/dL 1.8-2.4 Bacterial urine culture - 05/07/17 12:00 Bacterial urine culture [id number] NRG COLONY COUNT >100,000/ML NRG FTX;REPORTABLE SENSITIVITY REPORTED 05/09/17 11:00 NRG Bacterial susceptibility panel - 05/07/17 12:00 Gentamicin susceptibility test by minimum inhibitory concentration < = NRG Trimethoprim/sulfamethoxazole susceptibility test by minimum inhibitoryconcentration >= NRG Ampicillin susceptibility test by minimum inhibitory concentration > = NRG Tobramycin susceptibility test by minimum inhibitory concentration < = NRG Cefazolin susceptibility test by minimum inhibitory concentration S NRG Ceftriaxone susceptibility test by minimum inhibitory concentration S NRG Ampicillin/sulbactam susceptibility test by minimum inhibitory concentration <= NRG Piperacillin/tazobactam susceptibility test by minimum inhibitory concentration <= NRG Ciprofloxacin susceptibility test by minimum inhibitory concentration <= NRG Meropenem susceptibility test by minimum inhibitory concentration < = NRG Nitrofurantoin susceptibility test by minimum inhibitory concentration R NRG Aztreonam susceptibility test by minimum inhibitory concentration S NRG Bacterial urine culture - 05/26/17 16:35 URINE CULTURE RESULTS STAPH) NRG Complete urinalysis with reflex to culture - 11/19/17 14:55 Urine color determination YELLOW NRG Urine clarity determination VERY CLOUDY NRG Urine pH measurement by test strip 6.5 5-9 Specific gravity of urine by test strip 1.010 1.016- 1.022 Urine protein assay by test strip, semi-quantitative 2+ NEGATIVE Urine glucose detection by automated test strip NEGATIVE NEGATIVE Erythrocytes detection in urine sediment by light microscopy 2+ NEGATIVE Urine ketones detection by automated test strip NEGATIVE NEGATIVE Urine nitrite detection by test strip NEGATIVE NEGATIVE Urine total bilirubin detection by test strip NEGATIVE NEGATIVE Urine urobilinogen measurement by automated test strip (mass/volume) NORMAL NORMAL Urine leukocyte esterase detection by dipstick 3+ NEGATIVE Automated urine sediment erythrocyte count by microscopy (number/high power field) RARE NRG Automated urine sediment leukocyte count by microscopy (number/high power field ) TNTC NRG Bacteria detection in urine sediment by light microscopy LARGE NRG Squamous epithelial cells detection in urine sediment by light microscopy 10-25 NRG Crystals detection in urine sediment by light microscopy NONE NRG Casts detection in urine sediment by light microscopy NONE NRG Mucus detection in urine sediment by light microscopy NEGATIVE NRG Complete urinalysis with reflex to culture YES NRG Renal epithelial cells detection in urine sediment by light microscopy NONE NRG Bacterial urine culture - 11/19/17 14:55 Bacterial urine culture [id number] NRG COLONY COUNT >100,000/ML NRG FTX;REPORTABLE SENSITIVITY REPORTED AT 1745, 3 NR Bacterial susceptibility panel - 11/19/17 14:55 Gentamicin susceptibility test by minimum inhibitory concentration < = NRG Trimethoprim/sulfamethoxazole susceptibility test by minimum inhibitoryconcentration R NRG Ampicillin susceptibility test by minimum inhibitory concentration R NRG Tobramycin susceptibility test by minimum inhibitory concentration < = NRG Cefazolin susceptibility test by minimum inhibitory concentration < = NRG Ceftriaxone susceptibility test by minimum inhibitory concentration <= NRG Ampicillin/sulbactam susceptibility test by minimum inhibitory concentration <= NRG Piperacillin/tazobactam susceptibility test by minimum inhibitory concentration S NRG Ciprofloxacin susceptibility test by minimum inhibitory concentration <= NRG Meropenem susceptibility test by minimum inhibitory concentration < = NRG Nitrofurantoin susceptibility test by minimum inhibitory concentration <= NRG Aztreonam susceptibility test by minimum inhibitory concentration < = NRG Capillary blood glucose measurement by glucometer (mass/volume) - 11/27/17 12: 31 Capillary blood glucose measurement by glucometer (mass/volume) 121 mg/dL 70-110 Encounters ACCT No. Visit Date/Time Discharge Status Pt. Type Provider Facility Loc./Unit Complaint [id number] 05/04/2018 13:15:00 05/04/2018 23:59:59 CLS Outpatient RICHMOND PDAILLA MD [facility] ONC [id number] 03/18/2018 14:10:00 03/18/2018 23:59:59 CLS Preadmit RICHMOND PADILLA MD [facility] RAD MEMORY LOSS [id number] 02/18/2018 16:39:00 03/10/2018 00:01:00 DIS Outpatient RICHMOND PADILLA MD [facility] ONC [id number] 01/18/2018 13:33:00 01/18/2018 23:59:59 CLS Outpatient YANA HODGSON MD [facility] WOUNDCARE [id number] 01/04/2018 14:03:00 01/04/2018 23:59:59 CLS Outpatient YANA HODGSON MD [facility] WOUNDCARE [id number] 12/28/2017 12:18:00 12/28/2017 23:59:59 CLS Outpatient YANA HODGSON MD [facility] WOUNDCARE [id number] 11/27/2017 11:35:00 11/27/2017 15:35:00 DIS Outpatient TELMA GRIER MD [facility] ENDO HX OF COLON MASS [id number] 11/24/2017 06:33:00 11/24/2017 12:47:00 DIS Outpatient TELMA GRIER MD [facility] PREOP COLONOSCOPY [id number] 11/19/2017 13:56:00 11/19/2017 00:01:00 DIS Outpatient RICHMOND PADILLA MD [facility] ONC [id number] 10/07/2017 13:21:00 10/07/2017 23:59:59 CLS Outpatient JOSE ARMANDO FREY FACC, ALI FACP CCDS [facility] CARD R06.02 SHORTNESS OF BREATH [id number] 10/06/2017 08:21:00 10/06/2017 23:59:59 CLS Outpatient JOSE ARMANDO FREY FACC, ALI FACP CCDS [facility] CARD R06.02 SHORTNESS OF BREATH [id number] 09/16/2017 08:54:00 09/16/2017 23:59:59 CLS Outpatient RICHMOND PADILLA MD [facility] RAD 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 [id number] 08/14/2017 12:36:00 08/20/2017 14:30:00 DIS Outpatient NII BORDEN [facility] ONC [id number] 08/19/2017 09:08:00 08/19/2017 23:59:59 CLS Outpatient RICHMOND PADILLA MD [facility] RAD 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 [id number] 06/29/2017 10:04:00 06/29/2017 23:59:59 CLS Outpatient KAREN MORALES DO [facility] RAD DYSPHAGIA TO SOLIDS R13.10 [id number] 06/25/2017 09:57:00 06/25/2017 23:59:59 CLS Outpatient ANNETTE JIMENEZ [facility] RAD Z78.0 [id number] 05/26/2017 15:31:00 06/13/2017 00:01:00 DIS Outpatient NII BORDEN [facility] ONC [id number] 05/19/2017 10:17:00 05/19/2017 23:59:59 CLS Outpatient ANNETTE JIMENEZ PET NUTRITION SPECIALIST [facility] 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 [id number] 05/11/2017 12:49:00 05/11/2017 23:59:59 CLS Outpatient ANNETTE JIMENEZ PET NUTRITION SPECIALIST [facility] RAD R92.8 [id number] 05/06/2017 10:36:00 05/06/2017 23:59:59 CLS Outpatient LEILA FLORES MD [facility] RAD R92.8 [id number] 04/29/2017 10:17:00 04/29/2017 23:59:59 CLS Outpatient NOBLE STILL APRN [facility] RAD SIGMOID MASS, DIVERTICULOSIS [id number] 04/22/2017 11:00:00 04/22/2017 16:00:00 DIS Outpatient TELMA GRIER MD [facility] ENDO ANEMIA CHANGE BOWEL HABITS HX OF BLACK TARRY STOOL [id number] 04/21/2017 13:19:00 04/21/2017 13:27:00 DIS Outpatient TELMA GRIER MD [facility] PREOP ANEMIA CHANGE BOWEL HABITS HX BLACK TARRY STOOL [id number] 04/16/2017 11:30:00 04/16/2017 23:59:59 CLS Preadmit FABIÁN POSADA MD [facility] RAD SCREENING [id number] 04/16/2017 11:17:00 04/16/2017 23:59:59 CLS Outpatient FABIÁN POSADA MD [facility] RAD R63.4 ABNORMAL WEIGHT LOSS SCREENING [id number] 04/09/2017 13:34:00 04/09/2017 23:59:59 CLS Outpatient FABIÁN POSADA MD [facility] ONC [id number] 03/25/2017 12:40:00 03/25/2017 16:00:00 DIS Outpatient YANA HODGSON MD [facility] WOUNDCARE [id number] 02/19/2017 17:25:00 02/21/2017 12:57:00 DIS Outpatient TELMA GRIER MD [facility] SDC R THORACIC RADICULOPATHY [id number] 02/05/2017 12:16:00 02/05/2017 23:59:59 CLS Outpatient FABIÁN POSADA MD [facility] RAD C54.1 [id number] 01/05/2017 13:07:00 01/11/2017 00:01:00 DIS Outpatient FABIÁN POSADA MD [facility] ONC [id number] 08/28/2016 12:55:00 10/08/2016 00:01:00 DIS Outpatient FABIÁN POSADA MD [facility] ONC [id number] 07/10/2016 09:13:00 07/10/2016 23:59:59 CLS Outpatient FABIÁN POSADA MD [facility] RAD UTERINE CA [id number] 04/17/2016 13:49:00 06/23/2016 10:30:00 DIS Outpatient FABIÁN POSADA MD [facility] ONC [id number] 06/12/2016 11:57:00 06/12/2016 23:59:59 CLS Outpatient KAREN MORALES DO [facility] HH DYSURIA, POSSIBLE UTI [id number] 04/23/2016 16:55:00 04/23/2016 23:59:59 CLS Outpatient KAREN MORALES DO [facility] HH POSSIBLE C DIFF, DIARRHEA [id number] 03/20/2016 10:27:00 04/02/2016 00:01:00 DIS Outpatient FABIÁN POSADA MD [facility] ONC [id number] 03/17/2016 11:38:00 03/17/2016 15:24:00 DIS Emergency JAMELHUGH Storey DO [facility] ER DIZZINESS [id number] 01/15/2016 12:02:00 01/15/2016 23:59:59 CLS Outpatient FABIÁN POSADA MD [facility] RAD UTERINE CANCER [id number] 01/10/2016 11:44:00 01/10/2016 23:59:59 CLS Outpatient FABIÁN POSADA MD [facility] RAD [id number] 01/09/2016 12:25:00 01/09/2016 15:00:00 DIS Outpatient YANA HODGSON MD [facility] WOUNDCARE [id number] 12/27/2015 09:54:00 12/30/2015 00:01:00 DIS Outpatient FABIÁN POSADA MD [facility] ONC [id number] 10/31/2015 12:55:00 10/31/2015 23:59:59 CLS Outpatient KAREN MORALES DO [facility] RAD EDEMA LEFT LEG [id number] 10/11/2015 06:16:00 10/11/2015 23:59:59 CLS Outpatient TELMA GRIER MD [facility] SDC ENDOMETRIAL CANCER [id number] 10/10/2015 13:30:00 10/10/2015 23:59:59 CLS Outpatient FABIÁN POSADA MD [facility] RAD ENDOMETRIAL CA [id number] 10/09/2015 10:57:00 10/09/2015 23:59:59 CLS Outpatient TELMA GRIER MD [facility] PREOP PORT PLACEMENT [id number] 10/04/2015 10:58:00 10/04/2015 23:59:59 CLS Outpatient ANNETTE JIMENEZ [facility] ONC [id number] 08/24/2015 12:26:00 09/12/2015 00:01:00 DIS Outpatient FABIÁN POSADA MD [facility] ONC [id number] 08/02/2015 21:58:00 08/06/2015 13:45:00 DIS Inpatient KAREN MORALES DO [facility] 4TH UTI,INTRACTABLE PAIN OF BUTTOCK,R/T RADIATION BURN [id number] 06/13/2015 12:33:00 06/13/2015 00:01:00 DIS Outpatient FABIÁN POSADA MD [facility] ONC [id number] 05/29/2015 10:34:00 05/29/2015 23:59:59 CLS Outpatient FABIÁN POSADA MD [facility] RAD ENDOMETRIAL CA [id number] 05/16/2015 12:32:00 05/25/2015 12:00:00 DIS Outpatient COLTHARP MAYTE BAEZ [facility] WOUNDCARE [id number] 04/23/2015 13:56:00 04/23/2015 23:59:59 CLS Outpatient FENECH YANA BAEZ S [facility] RAD POST MENOPAUSAL BLEEDING WITH MASS [id number] 04/13/2015 12:24:00 04/13/2015 23:59:59 CLS Outpatient LY MORALES [facility] RAD VAG BLEEDING [id number] 03/28/2015 12:02:00 03/28/2015 23:59:59 CLS Outpatient COLTHARP DO MAYTE Garibay [facility] RAD ULCER,DM,VENOUS INSUFFICIENCY [id number] 12/17/2014 07:48:00 12/17/2014 10:14:00 DIS Emergency VIRGILIO FREY, SANTIAGO Berkowitz [facility] ER CONGESTION [id number] 05/28/2018 07:52:00 ACT Emergency MARIYA FREY, LESIA Haines [facility] ER FALL;R SIDE PAIN;NECK PAIN [id number] 05/27/2018 16:02:00 PEN Preadmit RICHMOND PADILLA MD [facility] RAD R41.3 MEMORY LOSS [id number] 10/05/2014 13:17:34 10/05/2014 13:17:34 DIS Outpatient [id number] 03/05/2015 17:16:57 Document Registration [id number] 03/05/2015 17:16:54 Document Registration [id number] 03/05/2015 17:16:50 Document Registration [id number] 03/05/2015 17:16:46 Document Registration [id number] 02/19/2015 14:34:20 Document Registration [id number] 02/19/2015 14:34:17 Document Registration [id number] 02/19/2015 14:34:13 Document Registration [id number] 02/19/2015 14:34:10 Document Registration [id number] 02/19/2015 14:34:05 Document Registration [id number] 02/19/2015 14:33:50 Document Registration [id number] 02/19/2015 14:33:45 Document Registration [id number] 08/07/2014 15:17:00 Document Registration [id number] 05/23/2014 18:42:00 Document Registration [id number] 06/25/2015 14:01:15 ACT Document Registration
--- NOTE | 2018-05-28 08:13 | ED Fall/Injury ---
General Stated Complaint: FALL;R SIDE PAIN;NECK PAIN Source: patient, EMS Exam Limitations: no limitations History of Present Illness Date Seen by Provider: May 28, 2018 Time Seen by Provider: 08:08 Initial Comments The patient is a 77-year-old white female who was brought to the emergency room by ambulance. She apparently fell in her home at about 2200 last night. There was apparently a miscommunication with her daughter. The patient had a medic alert button but thought she was not to use it until she had called her daughter. She was unable to complete the call 4 hours before finally pushing the medical alert button. She states that she did not lose consciousness. She fell heavily on her right side. She complains of pain in the right pelvis and hip area and in the right shoulder area. It is noted that there is no external rotation of the right foot while on the gurney. Occurred: this evening Injuries/Pain Location: neck, upper extremity, pelvis, lower extremity Loss of Consciousness: no loss of consciousness Allergies and Home Medications Allergies Coded Allergies: miconazole (Verified Allergy, Intermediate, RASH, 04/21/17) rash/hives ampicillin (Unverified Allergy, Unknown, 04/21/17) lanolin (Unverified Allergy, Unknown, 04/21/17) Jhidxiq-Atn-Qom Reductase Inhibitor (Unverified Adverse Reaction, Unknown , 04/21/17) adhesive tape (Unverified Adverse Reaction, Unknown, 04/21/17) latex (Unverified Adverse Reaction, Unknown, 04/21/17) Home Medications Amitriptyline HCl 25 Mg Tablet, 25 MG PO HS, (Reported) Carboxymethylcellulose Sodium 15 Ml Drops, 1-2 DROPS OU QID PRN for DRY EYES, ( Reported) Citalopram Hydrobromide 10 Mg Tablet, 10 MG PO HS, (Reported) Hydroxyzine HCl 25 Mg Tablet, 25 MG PO Q8H PRN for ITCHING, (Reported) Insulin Glargine,Hum.rec.anlog 100 Unit/1 Ml Insuln.pen, 10 UNIT SQ HS, ( Reported) Lisinopril 20 Mg Tablet, 20 MG PO DAILY, (Reported) Magnesium Oxide 400 Mg Capsule, 400 MG PO 1200, (Reported) Metformin HCl 500 Mg Tab.er.24h, 500 MG PO DAILY, (Reported) Pantoprazole Sodium 40 Mg Tablet.dr, 40 MG PO DAILY Prescribed by: JASON BE on 02/21/17 1421 Ranitidine HCl 150 Mg Tablet, 150 MG PO DAILY PRN for HEARTBURN, (Reported) Solifenacin Succinate 5 Mg Tablet, 5 MG PO DAILY, (Reported) Trimethoprim 100 Mg Tablet, 100 MG PO HS, (Reported) Vit C/Vit E/Lutein/Min/[place]-3 1 Each Capsule, 1 CAP PO DAILY, (Reported) [Trubiotic] , 1 TAB PO 1200, (Reported) Patient Home Medication List Home Medication List Reviewed: Yes Review of Systems Review of Systems Constitutional: see HPI Eyes: No Symptoms Reported Ears, Nose, Mouth, Throat: no symptoms reported Respiratory: no symptoms reported Cardiovascular: no symptoms reported Gastrointestinal: no symptoms reported Genitourinary: no symptoms reported Musculoskeletal: back pain, joint pain Skin: no symptoms reported Psychiatric/Neurological: No Symptoms Reported Past By[place]lt-Lzasnm-Bvdnpn Hx Patient Social History Recent Hopitalizations: No Immunizations Up To Date Tetanus Booster (TDap): Unknown Date of Pneumonia Vaccine: Oct 02, 2015 Date of Influenza Vaccine: Jun 23, 2017 Seasonal Allergies Seasonal Allergies: No Past Medical History Surgeries: Yes Abdominal, Section, Eye Surgery, Gallbladder, Hysterectomy, Oophorectomy, Orthopedic Respiratory: No Cardiac: Yes Chronic Edema/Swelling Neurological: Yes Neuropathy Reproductive Disorders: Yes (CANCER--SEE BELOW) Sexually Transmitted Disease: No HIV/AIDS: No Genitourinary: No Renal Failure Gastrointestinal: No Musculoskeletal: Yes Degenerate Disk Disease, Arthritis, Chronic Back Pain Endocrine: Yes (Type II, obesity) Diabetes, Insulin dep HEENT: Yes Macular Degeneration Loss of Vision: Bilateral Hearing Impairment: Denies Cancer: Yes Breast, Uterine, Vaginal Did You Recieve Any Treatments: Yes What Type of Treatment Did You: Chemotherapy, Radiation, Surgical Intervention Psychosocial: Yes Sleep Difficulties Integumentary: Yes Pruritis, Recent Skin Changes Blood Disorders: No Adverse Reaction/Blood Tranf: No Family Medical History FH: lung cancer G8 SISTER FH: stomach cancer G8 BROTHER FH: uterine cancer 19 MOTHER Myocardial infarction 19 FATHER Neoplasm SON Physical Exam Vital Signs Vital Signs - First Documented 05/28/18 07:55 Temp 97.5 Pulse 84 Resp 18 B/P (MAP) 170/60 (96) O2 Delivery Room Air Capillary Refill : Height, Weight, BMI Height: 4'11.00" Weight: 174lbs. 0.0oz. 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 There are quite scars, consistent with chronicity) Lymphatic: no adenopathy Oblong Coma Score Best Eye Response: (4) Open Spontaneously Best Verbal Response: (5) Oriented Best Motor Response: (6) Obeys Commands Progress/Results/Core Measures Results/Orders Lab Results Laboratory Tests Test 05/28/18 08:00 Range/Units White Blood Count 6.7 4.3-11.0 10^3/uL Red Blood Count 3.02 L 4.35-5.85 10^6/uL Hemoglobin 9.8 L 11.5-16.0 G/DL Hematocrit 29 L 35-52 % Mean Corpuscular Volume 95 80-99 FL Mean Corpuscular Hemoglobin 33 25-34 PG Mean Corpuscular Hemoglobin Concent 34 32-36 G/DL Red Cell Distribution Width 14.0 10.0-14.5 % Platelet Count 251 130-400 10^3/uL Mean Platelet Volume 9.4 7.4-10.4 FL Neutrophils (%) (Auto) 74 42-75 % Lymphocytes (%) (Auto) 13 12-44 % Monocytes (%) (Auto) 11 0-12 % Eosinophils (%) (Auto) 3 0-10 % Basophils (%) (Auto) 0 0-10 % Neutrophils # (Auto) 4.9 1.8-7.8 X 10^3 Lymphocytes # (Auto) 0.9 L 1.0-4.0 X 10^3 Monocytes # (Auto) 0.7 0.0-1.0 X 10^3 Eosinophils # (Auto) 0.2 0.0-0.3 10^3/uL Basophils # (Auto) 0.0 0.0-0.1 10^3/uL Urine Color YELLOW Urine Clarity VERY CLOUDY H Urine pH 5 5-9 Urine Specific [place] 1.020 1.016-1.022 Urine Protein 2+ H NEGATIVE Urine Glucose (UA) NEGATIVE NEGATIVE Urine Ketones NEGATIVE NEGATIVE Urine Nitrite NEGATIVE NEGATIVE Urine Bilirubin NEGATIVE NEGATIVE Urine Urobilinogen NORMAL NORMAL MG/DL Urine Leukocyte Esterase 3+ H NEGATIVE Urine RBC (Auto) 1+ H NEGATIVE Urine RBC 0-2 /HPF Urine WBC 50-100 H /HPF Urine Squamous Epithelial Cells RARE /HPF Urine Crystals NONE /LPF Urine Bacteria LARGE H /HPF Urine Casts NONE /LPF Urine Mucus NEGATIVE /LPF Urine Culture Indicated YES Sodium Level 135 135-145 MMOL/L Potassium Level 4.1 3.6-5.0 MMOL/L Chloride Level 103 98-107 MMOL/L Carbon Dioxide Level 23 21-32 MMOL/L Anion Gap 9 5-14 MMOL/L Blood Urea Nitrogen 47 H 7-18 MG/DL Creatinine 1.64 H 0.60-1.30 MG/DL Estimat Glomerular Filtration Rate 30 BUN/Creatinine Ratio 29 Glucose Level 242 H 70-105 MG/DL Calcium Level 9.4 8.5-10.1 MG/DL Corrected Calcium 9.5 8.5-10.1 MG/DL Total Bilirubin 0.2 0.1-1.0 MG/DL Aspartate Amino Transf (AST/SGOT) 20 5-34 U/L Alanine Aminotransferase (ALT/SGPT) 12 0-55 U/L Alkaline Phosphatase 92 40-136 U/L Total Protein 6.7 6.4-8.2 GM/DL Albumin 3.9 3.2-4.5 GM/DL My Orders Orders - LESIA MERAZ MD Cbc With Automated Diff (05/28/18 07:59) Comprehensive Metabolic Panel (05/28/18 07:59) Ua Culture If Indicated (05/28/18 07:59) Humerus, Right, 2 Views (05/28/18 07:59) Pelvis With Right Hip 2-3views (05/28/18 07:59) Ct Head/Cervical Spine Wo (05/28/18 07:59) Urine Culture (05/28/18 08:00) Vital Signs/I&O 05/28/18 07:55 Temp 97.5 Pulse 84 Resp 18 B/P (MAP) 170/60 (96) O2 Delivery Room Air Departure Communication (Admissions) X-rays all proved to be negative. The patient was assisted and was able to stand and walk independently. Impression Primary Impression: multiple contusions Additional Impression: fall at home Disposition: 01 HOME, SELF-CARE Condition: Stable/Unchanged Departure-Patient Inst. Decision time for Depature: 10:35 Referrals: KAREN MORALES DO (PCP/Family) Primary Care Physician Add. Discharge Instructions: Apply ice to any sore spots today. You may use Tylenol or ibuprofen 400 as needed for pain LESIA MERAZ MD May 28, 2018 08:13
[2018-05-28 08:37] LABS: BASOPHILS % (AUTO) 0 % (0-10); EOSINOPHILS # (AUTO) 0.2 10^3/uL (0.0-0.3); EOSINOPHILS % (AUTO) 3 % (0-10); HEMATOCRIT 29 % (35-52); HEMOGLOBIN 9.8 G/DL (11.5-16.0); LYMPHOCYTES # (AUTO) 0.9 X 10^3 (1.0-4.0); LYMPHOCYTES % (AUTO) 13 % (12-44); MEAN CORPUSCULAR HEMOGLOBIN 33 PG (25-34); MEAN CORPUSCULAR HGB CONC 34 G/DL (32-36); MEAN CORPUSCULAR VOLUME 95 FL (80-99); MEAN PLATELET VOLUME 9.4 FL (7.4-10.4); MONOCYTES # (AUTO) 0.7 X 10^3 (0.0-1.0); MONOCYTES % (AUTO) 11 % (0-12); NEUTROPHILS # (AUTO) 4.9 X 10^3 (1.8-7.8); NEUTROPHILS % (AUTO) 74 % (42-75); PLATELET COUNT 251 10^3/uL (130-400); RED BLOOD COUNT 3.02 10^6/uL (4.35-5.85); WHITE BLOOD COUNT 6.7 10^3/uL (4.3-11.0)
[2018-05-28 08:40] LABS: BILIRUBIN,URINE NEGATIVE (NEGATIVE); CLARITY,URINE VERY CLOUDY; COLOR,URINE YELLOW; GLUCOSE, URINE (UA) NEGATIVE (NEGATIVE); KETONES,URINE NEGATIVE (NEGATIVE); LEUKOCYTE ESTERASE ,URINE 3+ (NEGATIVE); NITRITE,URINE NEGATIVE (NEGATIVE); PH,URINE 5 (5-9); PROTEIN,URINE 2+ (NEGATIVE); UROBILINOGEN,URINE NORMAL (NORMAL)
--- NOTE | 2018-05-28 08:54 | Diagnostic Imaging Report ---
PROCEDURE: CT head and CT cervical spine without contrast. TECHNIQUE: Multiple contiguous axial images were obtained through the brain and cervical spine without the use of intravenous contrast. Sagittal and coronal reformations through the cervical spine were then performed. INDICATION: Fall with right-sided pain. No prior studies are available for comparison. CT brain: The ventricles and sulci are consistent with the patient's age. Moderate periventricular hypodensity is noted consistent with senescent change. No sulcal effacement, midline shift or hemorrhage is detected. The cisterns are patent. The visualized paranasal sinuses are clear. IMPRESSION: No acute intracranial process is detected. CT cervical spine: Curvature and alignment is normal. 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 No fractures are identified. Prevertebral tissues are normal. Odontoid is intact. IMPRESSION: Chronic changes. No acute bony abnormality is detected. Dictated by: Dictated on workstation # [id number]
[2018-05-28 08:59] LABS: BACTERIA,URINE LARGE /HPF; RBC,URINE 0-2 /HPF; SQUAMOUS EPITHELIAL CELL,UR RARE /HPF; WBC,URINE 50-100 /HPF
[2018-05-28 09:06] LABS: ALBUMIN 3.9 GM/DL (3.2-4.5); BILIRUBIN,TOTAL 0.2 MG/DL (0.1-1.0); CALCIUM 9.4 MG/DL (8.5-10.1); CREATININE SERUM 1.64 MG/DL (0.60-1.30); POTASSIUM 4.1 MMOL/L (3.6-5.0); TOTAL PROTEIN 6.7 GM/DL (6.4-8.2)
--- NOTE | 2018-05-28 09:22 | Diagnostic Imaging Report ---
INDICATION: Fall with pelvic pain. TIME OF EXAMINATION: 09:07 a.m. FINDINGS: An AP view of the pelvis and two views of the right hip were obtained. Femoroacetabular alignment is normal bilaterally. There are osteoarthritic changes of both hips with joint space narrowing. Both femoral heads and necks appear intact. The rami appear intact. No fractures are seen. IMPRESSION: No acute bony abnormality is detected. Dictated by: Dictated on workstation # [id number]
--- NOTE | 2018-05-28 09:22 | Diagnostic Imaging Report ---
INDICATION: Fall with right arm pain. Time of exam: 9:05 AM Two views of the right humerus were obtained. Alignment at the shoulder and elbow appears normal. The humerus appears intact. No fractures are seen. IMPRESSION: No acute abnormality is detected. Dictated by: Dictated on workstation # [id number]
[2018-05-28 11:12] VITALS: BP 117/70
== END 2018-05-28 11:15 | disposition home or self-care (01) ==
LOC: EDUNIT# 07:51 → ER 07:52
DX: S10.93XA Contusion of unspecified part of neck, initial encounter (principal); S30.0XXA Contusion of lower back and pelvis, initial encounter; S40.021A Contusion of right upper arm, initial encounter; S40.022A Contusion of left upper arm, initial encounter; S80.11XA Contusion of right lower leg, initial encounter; S80.12XA Contusion of left lower leg, initial encounter; R40.2142 Coma scale, eyes open, spontaneous, at arrival to emergency department; R40.2252 Coma scale, best verbal response, oriented, at arrival to emergency department; R40.2362 Coma scale, best motor response, obeys commands, at arrival to emergency department; E11.9 Type 2 diabetes mellitus without complications; E66.9 Obesity, unspecified; Z85.3 Personal history of malignant neoplasm of breast; Z85.42 Personal history of malignant neoplasm of other parts of uterus; Z85.44 Personal history of malignant neoplasm of other female genital organs; Z92.21 Personal history of antineoplastic chemotherapy; Z80.1 Family history of malignant neoplasm of trachea, bronchus and lung; Z80.0 Family history of malignant neoplasm of digestive organs; Z80.8 Family history of malignant neoplasm of other organs or systems; Z82.49 Family history of ischemic heart disease and other diseases of the circulatory system; Z68.35 Body mass index [BMI] 35.0-35.9, adult; Z88.0 Allergy status to penicillin; Z88.8 Allergy status to other drugs, medicaments and biological substances; Z91.040 Latex allergy status; Z91.048 Other nonmedicinal substance allergy status; Z79.4 Long term (current) use of insulin; Z87.59 Personal history of other complications of pregnancy, childbirth and the puerperium; Z90.710 Acquired absence of both cervix and uterus; W18.30XA Fall on same level, unspecified, initial encounter; Y92.009 Unspecified place in unspecified non-institutional (private) residence as the place of occurrence of the external cause
CPT/HCPCS: 36415; 70450; 72125; 73060; 80053; 81000; 85025; 87077; 87088; 87186

== ENCOUNTER → 2018-06-22 | Outpatient (CLI) | payer MEDICARE, OTHER ==
[~2018-06-22] MED LIST changes: +GADOBUTROL 10 MMOL/10 ML (GADAVIST) VIAL IV ONE
--- NOTE | 2018-06-22 13:13 | Diagnostic Imaging Report ---
PROCEDURE: MR imaging of the brain with and without contrast. TECHNIQUE: Multiplanar, multisequence MR imaging of the brain was performed with and without contrast. INDICATION: Memory problems. FINDINGS: There are no prior MRI examinations available for comparison. The CT head exam of 05/28/2018 failed to show any sign of an acute intracranial abnormality. On this exam, there is no mass, shift of the midline, or hemorrhage to indicate an acute intracranial abnormality. There is no abnormal signal arising from the brain on the diffusion series to suggest an area of acute ischemia either. Furthermore, there is no abnormal enhancement on the post contrast series to indicate a neoplastic or infectious process. The ventricles are not abnormally dilated and stable in size when compared to the previous CT head exam. There is cortical atrophy present. The degree of atrophy is consistent with the patient's age. The FLAIR series also shows focal and diffuse areas of increased signal throughout the periventricular white matter bilaterally. These findings are nonspecific but may be secondary to encephalomalacia from microvascular ischemia. The sella is not enlarged and the expected carotid flow voids are evident bilaterally. The orbits are symmetrical and within normal limits. The sinuses are generally clear. The seventh and eighth nerve complexes are unremarkable. IMPRESSION: 1. There is no evidence for an acute intracranial abnormality. 2. There is no abnormal enhancement to suggest a neoplastic or infectious process. 3. There are senescent changes including cortical atrophy and periventricular encephalomalacia. Dictated by: Dictated on workstation # [id number]
== END ==
LOC: RAD 11:17
PROVIDERS: ATTEND Internal Medicine Hematology & Oncology
DX: C50.919 Malignant neoplasm of unspecified site of unspecified female breast (principal); C54.1 Malignant neoplasm of endometrium; G93.89 Other specified disorders of brain; G31.9 Degenerative disease of nervous system, unspecified
CPT/HCPCS: 70553

== ENCOUNTER 2018-08-18 15:20 | Outpatient (RCR) | payer MEDICARE, OTHER ==
[~2018-08-18 15:20] MED LIST changes: -GADOBUTROL 10 MMOL/10 ML (GADAVIST) VIAL IV ONE
[2018-09-06] MEDS ORDERED: LETR2.5T5 PO ×2 (18:39)
[2018-09-06] MEDS ORDERED: CALC1TAB PO ×2 (18:39)
[2018-09-06] MEDS ORDERED: DESM0.2T2 PO ×2 (18:39)
[2018-09-06] MEDS ORDERED: CRAN1CAP3 PO ×2 (18:39)
[2018-09-06] MEDS ORDERED: MULT-884 PO ×2 (18:39)
[2018-09-06] MEDS ORDERED: TR1C15 TP ×2 (18:39)
[2018-09-09] MEDS ORDERED: CIPR500T4 PO ×2 (08:59)
[2018-09-09] MEDS ORDERED: AMLO5TAB7 PO ×2 (08:59)
== END 2018-09-14 | disposition home or self-care (01) ==
LOC: ONC 15:20
PROVIDERS: ATTEND Internal Medicine Hematology & Oncology
DX: C50.411 Malignant neoplasm of upper-outer quadrant of right female breast (principal); C54.1 Malignant neoplasm of endometrium; E11.319 Type 2 diabetes mellitus with unspecified diabetic retinopathy without macular edema; E11.40 Type 2 diabetes mellitus with diabetic neuropathy, unspecified; I10 Essential (primary) hypertension; E66.9 Obesity, unspecified; Z68.33 Body mass index [BMI] 33.0-33.9, adult; Z17.0 Estrogen receptor positive status [ER+]; R53.81 Other malaise; K63.9 Disease of intestine, unspecified; Z90.710 Acquired absence of both cervix and uterus; Z79.4 Long term (current) use of insulin; Z79.899 Other long term (current) drug therapy; Z45.2 Encounter for adjustment and management of vascular access device
CPT/HCPCS: 36591; 96523

== ENCOUNTER 2018-09-06 14:03 | Inpatient (IN) | payer MEDICARE, OTHER ==
[~2018-09-06] VITALS: Ht 149.9 cm; Wt 83.7 kg
--- OUTSIDE RECORDS SUMMARY | 2018-09-06 14:09 | XMS REPORT | Encounter Summary ---
Author Author [facility] Organization [facility] Address Unknown Phone Unavailable Care Team Providers Care Tool Dresser Name Role Phone Missael Jaramillo MD PCP Nadege Knapp RN Unavailable Unavailable Natasha Echols MD Unavailable Reason for Visit * Reason Comments Heme/Onc Care Encounter Details Care Team Description Date Type Department Kirk Cho DO [address] [place] [address] [phone] Franca Bills PA-C [address] [place] [address] [phone] Malignant neoplasm of upper-outer quadrant of right breast in female, estrogen receptor positive (HCC) (Primary Dx) 08/03/2018 Office Visit [facility] - IC Exam [id number] [place], [place] [address] Social History Date Tobacco Use Types Packs/Day Years Used Never Smoker Smokeless Tobacco: Never Used Alcohol Use Drinks/Week oz/Week Comments No 0 Standard 0.0 drinks or equivalent Sex Assigned at Date Recorded Not on file Industry Job Start Date Occupation Not on file Not on file Not on file Travel End Travel History Travel Start No recent travel history available. as of this encounter Last Filed Vital Signs Time Taken Vital Sign Reading 08/03/2018 2:16 PM [employer] Blood Pressure 158/61 08/03/2018 2:16 PM [employer] Pulse 65 08/03/2018 2:16 PM [employer] Temperature 36.8 C (98.2 F) 08/03/2018 2:16 PM CAR [employer] Respiratory Rate 18 08/03/2018 2:16 PM CAR GRO[employer]ER Oxygen Saturation 100% - Inhaled Oxygen - Concentration 08/03/2018 2:16 PM CAR GROOMER Weight 83.7 kg (184 lb 9.6 oz) 08/03/2018 2:16 PM CAR GRO[employer] Height 154.9 cm (5' 1") 08/03/2018 2:16 PM CAR GROOMER Body Mass Index 34.88 in this encounter Functional Status Date of Assessment Functional Status Response 08/03/2018 Does the patient have a hearing impairment: No 08/03/2018 Does the patient have a visual impairment: Yes 08/03/2018 Does the patient have impaired ambulation: Yes 08/03/2018 Does the patient have an activity of daily living Yes (ADL) impairment: 03/11/2018 Does the patient have an instrumental activity of No daily living (IADL) impairment: Date of Assessment Cognitive Status Response 08/03/2018 Does the patient have a cognitive impairment: No as of this encounter Progress Notes * Franca Bills PA-C - 08/03/2018 2:15 PM CAR GROOMER Name: Ayleen Nicole : 1940 AGE: 78 y.o. DATE OF SERVICE: 08/03/2018 Cancer Staging Malignant neoplasm of upper-outer quadrant of right breast in female, estrogen receptor positive (HCC) Staging form: Breast, AJCC 8th Edition - Clinical stage from 05/06/2017: Stage IA (cT1c, cN0, cM0, G2, ER: Positive, OK : Positive, HER2: Negative) - Signed by Franca Bills PA-C on 09/21/2017 - Pathologic stage from 10/29/2017: Stage IA (pT1c, pN0, cM0, G2, ER: Positive, OK: Positive, HER2: Negative) - Signed by Franca Bills PA-C on 03/11/2018 DIAGNOSIS: Right grade 2 IDC (ER90%, PR20%, HER2 1+, Ki-67 25%) at 9:30, dx 2016 History of Present Illness Ms. Nicole returns to the clinic for routine 8 month follow up. HISTORY: Ms. Nicole is a female who presented [facility] on 10/02/2017 at age 77 for evaluation of right breast cancer. Ms. Nicole had no complaints prior to screening mammogram. A new right breast mass was seen on screening mammogram that was suspicious. It continued to be suspcious on ultrasound and biopsy was recommended. Right breast sono-guided biopsy 05/11/17 ([place], [place]) revealed grade 2 invasive ductal carcinoma. Ms. Nicole has been followed by Dr. Tello and is currently getting endocrine therapy. A PET/CT was ordered in May 2017 which showed abnormal uptake in the pelvis and there was a possible rectosigmoid mass. Ms. Nicole underwent right lumpectomy on 10/29/17. PATHOLOGY: Tumor: 1.5 cm ILC Margins Free From Tumor: Yes ER: positive OK: positive Her 2: negative Grade: 2 LVSI: no BREAST IMAGING: Mammogram: -- Bilateral screening mammogram 04/16/17 ([place], [place]) revealed scattered fibroglandular densities. In the interval since previous exam, a poorly defined 1.7 x 1.6 cm spiculated mass had developed at 9-10:00 in the right breast 8-9 cm FTN. The tomographic images showed architectural distortion associated with this finding and this mass should be considered neoplastic until proven otherwise. Ultrasound recommended. The overall appearance of the left breast had not changed significantly since prior study. -- Right diagnostic mammogram 10/02/17 () revealed at 9:30, 6 cm the nipple there was a spiculated mass with a few associated microcalcifications. In comparison to the prior examination, this appeared slightly less prominent mammographically and measured approximately 2.1 cm x 1.9 cm x 1.9 cm mammographically. At approximately 7:00 at posterior depth in the right breast there was a 4 mm group of microcalcifications which were mildly suspicious. There was no evidence of associated mass or distortion. The visualized portions of the axilla were unremarkable. Ultrasound: -- Right breast ultrasound 05/06/17 ([place], [place]) revealed a poorly defined spiculated hypoechoic mass measuring 1.6 x 1.5 x 1.6 cm in the region of mammogram finding. There was internal blood flow. Biopsy was recommended. -- Right breast ultrasound 08/19/17 ([place], [place]) revealed at 9:30, 6 cm FTN, there was a hypoechoic mass with irregular margins measuring 1.3 x 1.5 x 1.4 cm and demonstrated internal vascularity which appeared slightly less prominent compared to previous exam. This was minimally smaller in size compared to prior measurement of 1.6 x 1.5 x 1.6 cm. -- Right breast ultrasound 09/16/17 ([place], [place]) revealed at 9:30, 6 cm FTN there was an ill-defined hypoechoic mass with posterior acoustic shadowing. This measured 1.5 x 1.3 x 1.3 cm and was essentially unchanged when compared to prior exam. No other discrete solid or cystic mass identified. -- Targeted right breast ultrasound 10/02/17 () revealed a spiculated mass at 9 :30, 6 cm the nipple consistent with known malignancy. The mass measured 1.3 cm a 1.7 cm x 1.4 cm. There appeared to be a few associated microcalcifications within the mass. No satellite lesions were identified. Extensive scanning of the axilla was performed with visualization of only a single normal-appearing level 1 axillary lymph node. Other: -- PET/CT 05/19/17 ([place], [place]) revealed abnormal uptake involving the left side of the posterior arch of C1. This was felt to be related to prior trauma and/or inflammation. There was also moderate physiologic uptake in the sigmoid colon. Moderately increased activity was also noted in the perineum and overlying the vagina. This was felt to be possibly related to urine contamination. The possibility of neoplastic involvement of this area was also raised given patient's history of endometrial carcinoma. There was a small area of hypermetabolic activity in the lateral aspect of the right breast in the area of recent biopsy. This finding corresponded to known malignancy. There was uptake in both hilar regions, but this was similar to previous exam. There was no hypermetabolic activity in the pelvis to suggest malignancy related to diagnosis of endometrial cancer. The CT abdomen/pelvis on 04/29/17 did raise the question of a small mass along the anterior aspect of the rectosigmoid colon on the left. This area was difficult to evaluate due to a considerable amount of physiologic activity in the rectosigmoid colon. There was no clear evidence of a mass, however. Clinical follow up recommended. REPRODUCTIVE HEALTH: Age at first Menarche: Unknown Age at First Live : 13 Age at Menopause: Hysterectomy in 2003 due to endometrial cancer : 2 Para: 2 : None PROCEDURE: Right lumpectomy, 10/29/17 PERTINENT PMH: Personal history of endometrial cancer in 2004 with recurrence in 2014, DM2, osteoarthritis, PVD FAMILY HISTORY: maternal aunt was diagnosed with breast cancer. Her mother was diagnosed with uterine cancer. PHYSICAL EXAM on PRESENTATION: Right - 2 cm mass at 9:00 with puckering of the skin. Left - No palpable breast masses. No skin, nipple, or areolar change. No supraclavicular or axillary adenopathy. MEDICAL ONCOLOGY: Dr. Tello PRESENT THERAPY: Letrozole started 05/2017 REFERRED BY: Dr. Tello Review of Systems Review of 13 systems negative except for: activity change, fatigue, congestion, dental problem, trouble swallowing, voice change, cold intolerance, increased urination, light sensitivity, visual disturbance, choking, cough, shortness of breath, leg swelling, diarrhea, incontinence, frequency, urgency, arthralgia, gait problem, joint swelling, myalgia, neck pain, neck stiffness, environmental allergies, dizziness, headaches, light-headedness, numbness, weakness, bruises/bleeds easily, confusion, decreased concentration, hallucinations, nervous/anxious Allergies Allergen Reactions Sulfa (Sulfonamide Antibiotics) SHORTNESS OF BREATH Amoxicillin RASH Irbesartan RASH Latex RASH and ITCHING Qchrypk-Tgb-Bvj Reductase Inhibitors HEADACHE and RASH Chocolate HEADACHE Lanolin SEE COMMENTS Patient experiences swelling and hot skin to the touch. The following medical/surgical/family/social history and the list of medications are current, as of 08/03/2018 Past Medical History: Diagnosis Date Acid reflux Arthritis Back pain Bleeding disorder (HCC) Breast cancer (HCC) Diabetes mellitus (HCC) Endometrial cancer (HCC) 2003 Hearing reduced Hiatal hernia History of MRSA infection 2008 Infection Vision decreased Past Surgical History: Procedure Laterality Date HX SECTION 1955 HX TONSILLECTOMY 1959 HX CHOLECYSTECTOMY 1959 HX HYSTERECTOMY 2004 UMBILICAL HERNIA REPAIR 2013 BREAST LUMPECTOMY Right 10/29/2017 RIGHT LUMPECTOMY performed by Kirk Cho DO at [facility] OR/PERIOP COLONOSCOPY HX CATARACT REMOVAL HX REFRACTIVE SURGERY KNEE SURGERY WRIST SURGERY Bilateral Family History Problem Relation Age of Onset Cancer Mother 49 cervical Heart Disease Father 50 High Cholesterol Father Cancer-Lung Sister 75 Diabetes Sister 50 Arthritis-rheumatoid Sister Rashes/Skin Problems Sister Cancer-Lung Brother 73 Diabetes Brother 50 Heart Disease Brother 50 Hypertension Brother 50 Depression Brother Coronary Artery Disease Brother Cancer-Breast Maternal Aunt 34 Cancer-Lung Son 58 Diabetes Son Hypertension Son High Cholesterol Son Asthma Son Migraines Son Depression Son Migraines Daughter Depression Daughter Melanoma Neg Hx Social History Social History Marital status: Spouse name: N/A Number of children: N/A Years of education: N/A Social History Main Topics Smoking status: Never Smoker Smokeless tobacco: Never Used Alcohol use No Drug use: No Sexual activity: Not on file Other Topics Concern Not on file Social History Narrative No narrative on file Objective: Amitriptyline-Chlordiazepoxide 25-10 mg tab Take by mouth. ANTIOX #11/OM3/DHA/EPA/LUT/CLAUDIA (OCUVITE ADULT 50+ PO) Take by mouth. CALCIUM CARBONATE/VITAMIN D3 (CALTRATE WITH VITAMIN D3 PO) Take by mouth. citalopram (CELEXA) 10 mg tablet Take 10 mg by mouth daily. desmopressin (DDAVP) 0.2 mg tablet DOCUSATE SODIUM (STOOL SOFTENER PO) Take by mouth. hydroCHLOROthiazide (HYDRODIURIL) 25 mg tablet Take 25 mg by mouth every morning. HYDROcodone/acetaminophen (NORCO) 5/325 mg tablet Take 1-2 tablets by mouth every 4 hours as needed for Pain Earliest Fill Date: 10/29/17 hydrOXYzine pamoate (VISTARIL) 25 mg capsule Take 25 mg by mouth three times daily as needed for Itching. IBUPROFEN PO Take by mouth daily. INSULIN GLARGINE,HUM.REC.ANLOG (LANTUS SC) Inject 34 Units into area(s) as directed daily. letrozole (FEMARA) 2.5 mg tablet lisinopril (PRINIVIL; ZESTRIL) 20 mg tablet Take 20 mg by mouth daily. magnesium oxide (MAG-OX) 400 mg tablet Take 400 mg by mouth daily. metFORMIN-XR(+) (GLUCOPHAGE XR) 500 mg extended release tablet Take 500 mg by mouth daily with dinner. pantoprazole DR (PROTONIX) 40 mg tablet ranitidine(+) (ZANTAC) 150 mg tablet Take 150 mg by mouth twice daily. senna/docusate (SENOKOT-S) 8.6/50 mg tablet Take 1 tablet by mouth twice daily. While taking narcotic pain medication solifenacin(+) (VESICARE) 5 mg tablet Take 5 mg by mouth daily. trimethoprim (TRIMPEX) 100 mg tablet Take 100 mg by mouth twice daily. Vitals: 08/03/18 1416 BP: 158/61 Pulse: 65 Resp: 18 Temp: 36.8 C (98.2 F) TempSrc: Oral SpO2: 100% Weight: 83.7 kg (184 lb 9.6 oz) Height: 154.9 cm (61") Body mass index is 34.88 kg/m. Pain Score: Six Pain Loc: Neck Pain Addressed: N/A Patient Evaluated for a Clinical Trial: No treatment clinical trial available for this patient. Eastern Cooperative Oncology Group performance status is 3, Capable of only limited selfcare, confined to bed or chair more than 50% of waking hours. Physical Exam Pulmonary/Chest: Vitals reviewed. Exam in wheelchair RIGHT BREAST EXAM: Breast: S/p lumpectomy. No palpable masses Skin Erythema: No Attachment of Overlying Skin: No Peau d' orange: No Chest Wall Attachment: No Nipple Inversion: No Nipple Discharge: No LEFT BREAST EXAM: Breast: No palpable masses Skin Erythema: No Attachment of Overlying Skin: No Peau d' orange: No Chest Wall Attachment: No Nipple Inversion: No Nipple Discharge: No RIGHT DAWSON BASIN EXAM: Axillary: negative Infraclavicular: negative Supraclavicular: negative LEFT DAWSON BASIN EXAM: Axillary: negative Infraclavicular: negative Supraclavicular: negative Constitutional: No acute distress. HEENT: Head: Normocephalic and atraumatic. Eyes: No discharge. No scleral icterus. Pulmonary/Chest: No respiratory distress. Neurological: Alert and oriented to person, place and time. No cranial nerve deficit. Skin: Warm and dry. No rash noted. No erythema. No pallor. Psychiatric: Normal mood and affect. Behavior is normal. Judgement and thought content normal. 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 Nicole and her daughter presented to the office today. Ms. Nicole had to go to the ED in May after a fall. Her daughter went to the house and found that Ms. Nicole had not been taking her medication. She has since moved in with her daughter. She continues on Femara with Dr. Dale and is tolerating. She is scheduled for bilateral diagnostic mammogram today. We will call her with the results. Ms. Nicole has a lot of difficulty getting up to [place]. She can continue mammograms and breast exams with Dr. Dale. If they have any new concerns, they are to call the office. She was given ample time to ask questions all of which were answered to her satisfaction. She was encouraged to call with any interval questions or concerns. This patient was evaluated and treated by Dr. Cho. 1. Continue follow up with Dr. Dale 2. Bilateral diagnostic mammogram today 3. RTC PRN Franca Bills PA-C GROOMER in this encounter Plan of Treatment Not on fileas of this encounter Visit Diagnoses Diagnosis Malignant neoplasm of upper-outer quadrant of right breast in female, estrogen receptor positive (HCC) - Primary in this encounter
--- OUTSIDE RECORDS SUMMARY | 2018-09-06 14:09 | XMS REPORT | Clinical Summary ---
Author Author [facility] Organization [facility] Address Unknown Phone Unavailable Care Team Providers Care Radio Repair Teacher Name Role Phone Missael Jaramillo MD PCP Nadege Knapp RN Unavailable Unavailable Natasha Echols MD Unavailable Source Comments Some departments are not documenting in the electronic medical record. If you do not see the information that you expected, contact Release of Information in the Health Information Management department at [phone] for further assistance in locating additional records.[facility] Allergies Comments Active Allergy Reactions Severity Noted Date Amoxicillin RASH Medium 05/07/2015 Chocolate HEADACHE Low 05/07/2015 Irbesartan RASH Medium 10/02/2017 Patient experiences swelling and hot skin to the touch. Lanolin SEE COMMENTS Low 05/07/2015 Latex RASH, ITCHING Medium 05/07/2015 Ywmogdl-Wqy-Qkj Reductase HEADACHE, Medium 10/02/2017 Inhibitors RASH Sulfa (Sulfonamide SHORTNESS OF High 12/26/2016 Antibiotics) BREATH Medications End Date Status Medication Sig Dispensed Refills Start Date Active lisinopril (PRINIVIL; Take 20 mg by 0 ZESTRIL) 20 mg tablet mouth daily. Active ranitidine(+) (ZANTAC) Take 150 mg 0 150 mg tablet by mouth twice daily. Active ANTIOX Take by 0 #11/OM3/DHA/EPA/LUT/CLAUDIA mouth. (OCUVITE ADULT 50+ PO) Active IBUPROFEN PO Take by 0 mouth daily. Active INSULIN Inject 34 0 GLARGINE,HUM.REC.ANLOG Units into (LANTUS SC) area(s) as directed daily. Active Amitriptyline-Chlordiazep Take by 0 oxide 25-10 mg tab mouth. Active trimethoprim (TRIMPEX) Take 100 mg 0 100 mg tablet by mouth twice daily. Active metFORMIN-XR(+) Take 500 mg 0 (GLUCOPHAGE XR) 500 mg by mouth extended release tablet daily with dinner. Active hydroCHLOROthiazide Take 25 mg by 0 (HYDRODIURIL) 25 mg mouth every tablet morning. Active pantoprazole DR 0 (PROTONIX) 40 mg tablet 8 Active letrozole (FEMARA) 2.5 mg 0 tablet 8 Active desmopressin (DDAVP) 0.2 0 mg tablet 8 Active solifenacin(+) (VESICARE) Take 5 mg by 0 5 mg tablet mouth daily. Active citalopram (CELEXA) 10 mg Take 10 mg by 0 tablet mouth daily. Active magnesium oxide (MAG-OX) Take 400 mg 0 400 mg tablet by mouth daily. Active hydrOXYzine pamoate Take 25 mg by 0 (VISTARIL) 25 mg capsule mouth three times daily as needed for Itching. Active CALCIUM CARBONATE/VITAMIN Take by 0 D3 (CALTRATE WITH VITAMIN mouth. D3 PO) Active DOCUSATE SODIUM (STOOL Take by 0 SOFTENER PO) mouth. Active HYDROcodone/acetaminophen Take 1-2 40 tablet 0 (NORCO) 5/325 mg tablet tablets by 8 mouth every 4 hours as needed for Pain Earliest Fill Date: 10/29/17 Active senna/docusate Take 1 tablet 30 tablet 1 (SENOKOT-S) 8.6/50 mg by mouth 8 tablet twice daily. 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 Nicole is a female who [facility] 10[facility]2017 at age 77 for evaluation of right breast cancer. Ms. Nicole had no complaints prior to screening mammogram. A new right breast mass was seen on screening mammogram that was suspicious. It continued to be suspcious on ultrasound and biopsy was recommended. Right breast sono-guided biopsy 05/11/17 ([place], [place]) revealed grade 2 invasive ductal carcinoma. Ms. Nicole has been followed by Dr. Tello and is currently getting endocrine therapy. A PET/CT was ordered in May 2017 which showed abnormal uptake in the pelvis and there was a possible rectosigmoid mass. Ms. Nicole underwent right lumpectomy on 10/29/17. PATHOLOGY: Tumor: 1.5 cm ILC Margins Free From Tumor: Yes ER: positive MA: positive Her 2: negative Grade: 2 LVSI: no BREAST IMAGING: Mammogram: -- Bilateral screening mammogram 04/16/17 ([place], [place]) revealed scattered fibroglandular densities. In the [...] unremarkable. Ultrasound: -- Right breast ultrasound 05/06/17 ([place], [place]) revealed a poorly defined spiculated hypoechoic mass measuring 1.6 x 1.5 x 1.6 cm in the region of mammogram finding. There was internal blood flow. Biopsy was recommended. -- Right breast ultrasound 08/19/17 ([place], [place]) revealed at 9:30, 6 cm FTN, there was a hypoechoic mass with irregular margins measuring 1.3 x 1.5 x 1.4 cm and demonstrated internal vascularity which appeared slightly less prominent compared to previous exam. This was minimally smaller in size compared to prior measurement of 1.6 x 1.5 x 1.6 cm. -- Right breast ultrasound 09/16/17 ([place], [place]) revealed at 9:30, 6 cm FTN there was an ill-defined hypoechoic mass with posterior acoustic shadowing. This measured 1.5 x 1.3 x 1.3 cm and was essentially unchanged when compared to prior exam. No other discrete solid or cystic mass identified. -- Targeted right breast ultrasound 10/02/17 () revealed a spiculated mass at 9:30, 6 cm the nipple consistent with known malignancy. The mass measured 1.3 cm a 1.7 cm x 1.4 cm. There appeared to be a few associated microcalcifications within the mass. No satellite lesions were identified. Extensive scanning of the axilla was performed with visualization of only a single normal-appearing level 1 axillary lymph node. Other: -- PET/CT 05/19/17 ([place], [place]) revealed abnormal uptake involving the left [...] PMH: Personal history of endometrial cancer in 2003 with recurrence in 2014, DM2, osteoarthritis, PVD [...] Letrozole started 05/2017 REFERRED BY: Dr. Tello Adenocarcinoma of the endometrium/uterus 05/09/2015 Overview: Referring Physician: Dr. Cirilo Salinas PCP: Blanche Jaramillo APRN Wound care: Dr. Eitan Herreraarp 74 yo with endometrial adenocarcinoma FIGO grade 2 1. Patient has a history of hysterectomy 05/15/[address] Mario Michael in [place], [place] with a diagnosis of endometrial FIGO grade 1. Per pt., was told that they got it all and did not need further tx. Pt. has not had annual pelvic examinations or f/u since that time. 2. Pt. was referred from PCP Dr. Jaramillo to [facility] Dr. Salinas in [place], [place] on 04/18/15 for post-menopausal bleeding beginning [...] her CT Scan, which was done in [place], I suspect the areas of interest are: [...] her home-although she has used the hospital caravan. She is anxious that she cannot/will not tolerate any therapy, became very upset at the thought of traveling from her home in [place] to the cancer center, radiation/chemotherapy. I also discussed her options should she decline any therapy-would recommend hospice. Consideration for epidural pain pump in the event of progressive pain. I have contacted the [facility] [place] and she has been scheduled with one of the medical oncologists as well as with Dr. Field, the radiation oncologist. If her tumor is ER+, after radiation, consideration for antiestrogen therapy, such as megace, AI, could be considered. Encounters Care Team Description Date Type Specialty Kirk Cho DO Results 08/09/2018 Telephone Oncology Kirk Cho DO 08/03/2018 Hospital Radiology Encounter Kirk Cho DO Miller, Veronica, PA-C Malignant neoplasm of upper-outer quadrant of right breast in female, estrogen receptor positive (HCC) (Primary Dx) 08/03/2018 Office Visit Oncology from Last 3 Months Family History Medical History Relation Name Comments Cancer-Lung Brother Coronary Artery Disease Brother Depression Brother Diabetes Brother Heart Disease Brother Hypertension Brother Depression Daughter Migraines Daughter Heart Disease Father High Cholesterol Father Cancer-Breast Maternal Aunt Cancer Mother cervical Arthritis-rheumatoid Sister Cancer-Lung Sister Diabetes Sister Rashes/Skin Problems Sister Asthma Son Cancer-Lung Son Depression Son Diabetes Son High Cholesterol Son Hypertension Son Migraines Son Melanoma Neg Hx Relation Name Status Comments Brother Daughter Alive Father Maternal Aunt Mother Sister Son Social History Date Tobacco Use Types Packs/Day Years Used Never Smoker Smokeless Tobacco: Never Used Alcohol Use Drinks/Week oz/Week Comments No 0 Standard 0.0 drinks or equivalent Sex Assigned at Date Recorded Not on file Industry Job Start Date Occupation Not on file Not on file Not on file Travel End Travel History Travel Start No recent travel history available. Last Filed Vital Signs Time Taken Vital Sign Reading 08/03/2018 2:16 PM TELEGRAPHIC TYPEWRITER INSTALLER Blood Pressure 158/61 08/03/2018 2:16 PM TELEGRAPHIC TYPEWRITER INSTALLER Pulse 65 08/03/2018 2:16 PM TELEGRAPHIC TYPEWRITER INSTALLER Temperature 36.8 C (98.2 F) 08/03/2018 2:16 PM TELEGRAPHIC TYPEWRITER INSTALLER Respiratory Rate 18 08/03/2018 2:16 PM TELEGRAPHIC TYPEWRITER INSTALLER Oxygen Saturation 100% - Inhaled Oxygen - Concentration 08/03/2018 2:16 PM TELEGRAPHIC TYPEWRITER INSTALLER Weight 83.7 kg (184 lb 9.6 oz) 08/03/2018 2:16 PM TELEGRAPHIC TYPEWRITER INSTALLER Height 154.9 cm (5' 1") 08/03/2018 2:16 PM TELEGRAPHIC TYPEWRITER INSTALLER Body Mass Index 34.88 Plan of Treatment Health Maintenance Due Date Last Done Comments PHYSICAL (COMPREHENSIVE) 1947 EXAM DILATED EYE EXAM 1956 DTAP/TDAP VACCINES (1 - 1956 Tdap) FOOT EXAM 1956 HBA1C 1956 SHINGLES RECOMBINANT 1988 VACCINE (1 of 2) OSTEOPOROSIS 2003 SCREENING/MONITORING PNEUMONIA (PCV13/PPSV23) 2003 VACCINES (1 of 2 - PCV13) INFLUENZA VACCINE 04/14/2018 06/18/2009, 06/21/2008, 07/14/2003, Additional history exists Implants Device Identifier Shelf Expiration Date Model / Serial / Lot Implanted Type Area Manufactur er 06/02/2018 / / [id number] [employer]-10/08/2017 Clip Implanted: Qty: 1 on 10/08/2017 by Mauro Pacheco MD Procedures Comments Procedure Name Priority Date/Time Associated Diagnosis MAMMO DIAGNOSTIC JUAN PABLO/DAYANA Routine 08/03/2018 Malignant neoplasm of 3:15 PM TELEGRAPHIC TYPEWRITER INSTALLER upper-outer quadrant of right breast in female, estrogen receptor positive (HCC) from Last 3 Months Results * MAMMO DIAGNOSTIC JUAN PABLO/DAYANA (08/03/2018 3:15 PM TELEGRAPHIC TYPEWRITER INSTALLER) Impressions Performed At [facility] BI-RADS Assessments: BIRAD 2-Benign [facility] RESULTS RECOMMENDATION: Routine screening mammogram in 1 year. Narrative Performed At Last mammogram was performed 1 year and 3 months ago. [facility] RAD RESULTS Reason for exam: history of breast cancer, conservation therapy. first time back since surgery [id number] MAMMO DIAGNOSTIC JUAN PABLO/DAYANA: AUGUST 03, 2018 - 2D/3D Procedure 3D Routine views. 2D Routine views. Technologists: Angie Young, Vendor Representatives; Eladia Goodson Prior study comparison: October 08, 2017, right breast [id number] MAMMO DIAG RT performed at [facility].October 02, 2017, right breast [id number] MAMMO DIAGNOSTIC RT/DAYANA performed at [facility]. May 11, 2017, mammogram.April 16, 2017, mammogram. There are scattered areas of fibroglandular density.78-year-old female, history of breast cancer, conservation therapy. 3-D tomographic and reconstructed 2-D images of the bilateral breasts were obtained. Additional spot compression images were obtained of the right breast. Post surgical changes are noted from interval right lumpectomy. No new suspicious masses, calcifications, or areas of architectural distortion. Approved by Irlanda Harrell M.D. on 08/03/2018 3:28 PM By my electronic signature, I attest that I have personally reviewed the images for this examination and formulated the interpretations and opinions expressed in this report Finalized by Mauro Pacheco M.D. on 08/03/2018 3:43 PM. Dictated by Irlanda Harrell M.D. on 08/03/2018 3:16 PM. Electronically signed and approved by: Mauro Pacheco M.D. [id number] Procedure Note Interface, Radiant Results - 08/03/2018 3:43 PM TELEGRAPHIC TYPEWRITER INSTALLER Last mammogram was performed 1 year and 3 months ago. Reason for exam: history of breast cancer, conservation therapy. first time back since surgery [id number] MAMMO DIAGNOSTIC JUAN PABLO/DAYANA: AUGUST 03, 2018 - 2D/3D Procedure 3D Routine views. 2D Routine views. Technologists: Angie Young, Vendor Representatives; Eladia Goodson Prior study comparison: October 08, 2017, right breast [id number] MAMMO DIAG RT performed at [facility]. October 02, 2017, right breast [id number] MAMMO DIAGNOSTIC RT/DAYANA performed at [facility]. May 11, 2017, mammogram. April 16, 2017, mammogram. There are scattered areas of fibroglandular density. 78-year-old female, history of breast cancer, conservation therapy. 3-D tomographic and reconstructed 2-D images of the bilateral breasts were obtained. Additional spot compression images were obtained of the right breast. Post surgical changes are noted from interval right lumpectomy. No new suspicious masses, calcifications, or areas of architectural distortion. Approved by Irlanda Harrell M.D. on 08/03/2018 3:28 PM By my electronic signature, I attest that I have personally reviewed the images for this examination and formulated the interpretations and opinions expressed in this report Finalized by Mauro Pacheco M.D. on 08/03/2018 3:43 PM. Dictated by Irlanda Harrell M.D. on 08/03/2018 3:16 PM. Electronically signed and approved by: Mauro Pacheco M.D. [id number] IMPRESSION ACR BI-RADS Assessments: BIRAD 2-Benign RECOMMENDATION: Routine screening mammogram in 1 year. Performing Organization Address City/State/Zipcode Phone Number [facility] RAD RESULTS from Last 3 Months Insurance Payer Benefit Subscriber ID Type Phone Address Plan / Group MEDICARE MEDICARE xxxxxxxxxx Medicare PART A AND B [employer] xxxxxxxxx PPO [employer] Advance Directives Patient has advance care planning documents on file. For more information, please contact: [facility] [address] [place] [address]
--- OUTSIDE RECORDS SUMMARY | 2018-09-06 14:09 | XMS REPORT | Encounter Summary ---
Author Author [facility] Organization [facility] Address Unknown Phone Unavailable Care Team Providers Care Global Climate Change Analyst Name Role Phone Missael Jaramillo MD PCP Nadege Knapp RN Unavailable Unavailable Natasha Echols MD Unavailable Reason for Visit * Reason Comments Results Encounter Details Care Team Description Date Type Department Kirk Cho DO [address] [place] [address] [phone] Results 08/09/2018 Telephone [facility] - IC Exam [address] [place] [address] Social History Date Tobacco Use Types Packs/Day [...] travel history available. as of this encounter Functional Status Date of Assessment [...] cognitive impairment: No as of this encounter Miscellaneous Notes * Telephone Encounter - Ruchi Bills RN - 08/09/2018 11:33 AM VOLCANOLOGY PROFESSOR Left message for patient with results of mammogram as listed below. Patient educated she will be due for screening mamm in 1 year. Contact information provided for any questions or concerns or if patients needs us in the future. Encouraged patient to continue follow up with Dr. Dale. Post surgical changes are noted from interval [...] signed and approved by: Mauro Pacheco M.D. [id number] IMPRESSION ACR BI-RADS Assessments: BIRAD 2-Benign RECOMMENDATION: Routine screening mammogram in 1 year. ANOLOGY PROFESSOR in this encounter Plan of Treatment Not on fileas of this encounter Visit Diagnoses Not on filein this encounter
--- OUTSIDE RECORDS SUMMARY | 2018-09-06 14:09 | XMS REPORT | Encounter Summary ---
Author Author [facility] Organization [facility] Address Unknown Phone Unavailable Care Team Providers Care Long Filler Cigar Roller Machine Name Role Phone Missael Jaramillo MD PCP Nadege Knapp RN Unavailable Unavailable Natasha Echols MD Unavailable Reason for Visit * Radiology Services (Routine) Referred By Contact Referred To Contact Status Reason Specialty Diagnoses / Procedures Franca Bills PA-C [address] [place] [address] Ic1 Mammo [address] [place] [address] No Auth Needed Radiology Diagnoses nilda [id number] P rocedures DIGITAL MAMMO SCREEN BILAT HR/DAYANA/CAD DIGITAL MAMMO DX JUAN PABLO DAYANA Encounter Details Care Team Description Date Type Department Kirk Cho DO [address] [place] [address] [phone] 08/03/2018 Hospital [facility] Encounter [facility] [address] [place] [address] Social History Date Tobacco Use Types Packs/Day [...] cognitive impairment: No as of this encounter Medications at Time of Discharge Start Date End Date Medication Sig Dispensed Refills Amitriptyline-Chlordiazep Take by 0 oxide 25-10 mg tab mouth. ANTIOX Take by 0 #11/OM3/DHA/EPA/LUT/CLAUDIA mouth. (OCUVITE ADULT 50+ PO) CALCIUM CARBONATE/VITAMIN Take by 0 D3 (CALTRATE WITH VITAMIN mouth. D3 PO) citalopram (CELEXA) 10 mg Take 10 mg by 0 tablet mouth daily. 09/16/2017 desmopressin (DDAVP) 0.2 0 mg tablet DOCUSATE SODIUM (STOOL Take by 0 SOFTENER PO) mouth. hydroCHLOROthiazide Take 25 mg by 0 (HYDRODIURIL) 25 mg mouth every tablet morning. 10/29/2017 HYDROcodone/acetaminophen Take 1-2 40 tablet 0 (NORCO) 5/325 mg tablet tablets by mouth every 4 hours as needed for Pain Earliest Fill Date: 10/29/17 hydrOXYzine pamoate Take 25 mg by 0 (VISTARIL) 25 mg capsule mouth three times daily as needed for Itching. IBUPROFEN PO Take by 0 mouth daily. INSULIN Inject 34 0 GLARGINE,HUM.REC.ANLOG Units into (LANTUS SC) area(s) as directed daily. 09/21/2017 letrozole (FEMARA) 2.5 mg 0 tablet lisinopril (PRINIVIL; Take 20 mg by 0 ZESTRIL) 20 mg tablet mouth daily. magnesium oxide (MAG-OX) Take 400 mg 0 400 mg tablet by mouth daily. metFORMIN-XR(+) Take 500 mg 0 (GLUCOPHAGE XR) 500 mg by mouth extended release tablet daily with dinner. 09/28/[address] 0 (PROTONIX) 40 mg tablet ranitidine(+) (ZANTAC) Take 150 mg 0 150 mg tablet by mouth twice daily. 10/29/2017 senna/docusate Take 1 tablet 30 tablet 1 (SENOKOT-S) 8.6/50 mg by mouth tablet twice daily. While taking narcotic pain medication solifenacin(+) (VESICARE) Take 5 mg by 0 5 mg tablet mouth daily. trimethoprim (TRIMPEX) Take 100 mg 0 100 mg tablet by mouth twice daily. as of this encounter Plan of Treatment Not on fileas of this encounter Procedures Comments Procedure Name Priority Date/Time Associated Diagnosis MAMMO DIAGNOSTIC JUAN PABLO/DAYANA Routine 08/03/2018 Malignant neoplasm of 3:15 PM FINANCIAL SERVICES SPECIALIST upper-outer quadrant of right breast in female, estrogen receptor positive (HCC) in this encounter Results * MAMMO DIAGNOSTIC JUAN PABLO/DAYANA (08/03/2018 3:15 PM FINANCIAL SERVICES SPECIALIST) Impressions Performed At [facility] BI-RADS Assessments: BIRAD 2-Benign [facility] RESULTS RECOMMENDATION: Routine screening mammogram in 1 year. Narrative Performed At Last mammogram was performed 1 year and 3 months ago. [facility] RAD RESULTS Reason for exam: history of breast cancer, conservation therapy. first time back since surgery [id number] MAMMO DIAGNOSTIC JUAN PABLO/DAYANA: AUGUST 03, 2018 - 2D/3D Procedure 3D Routine views. 2D Routine views. Technologists: Angie Young, Dynamic Etching Processor; Eladia Goodson Prior study comparison: October 08, 2017, right breast [id number] MAMMO DIAG RT performed at [facility].October 02, 2017, right breast [id number] MAMMO DIAGNOSTIC RT/DAYANA performed at [facility]. May 11, 2017, mammogram.April 16, 2017, mammogram. [...] or areas of architectural distortion. Approved by rIlanda Harrell M.D. on 08/03/2018 3:28 PM By my electronic signature, I attest that I have personally reviewed the images for this examination and formulated the interpretations and opinions expressed in this report Finalized by Mauro Pacheco M.D. on 08/03/2018 3:43 PM. Dictated by Irlanda Harrell M.D. on 08/03/2018 3:16 PM. Electronically signed and approved by: Mauro Pacheco M.D. [id number] Procedure Note Interface, Radiant Results - 08/03/2018 3:43 PM FINANCIAL SERVICES SPECIALIST Last mammogram was performed 1 year and 3 months ago. Reason for exam: history of breast cancer, conservation therapy. first time back since surgery [id number] MAMMO DIAGNOSTIC JUAN PABLO/DAYANA: AUGUST 03, 2018 - 2D/3D Procedure 3D Routine views. 2D Routine views. Technologists: Angie Young, Dynamic Etching Processor; Eladia Goodson Prior study comparison: October 08, 2017, right breast [id number] MAMMO DIAG RT performed at [facility]. October 02, 2017, right breast [id number] MAMMO DIAGNOSTIC RT/DAYANA performed at [facility]. May 11, 2017, mammogram. April 16, 2017, [...] signed and approved by: Mauro Pacheco M.D. [id number] IMPRESSION ACR BI-RADS Assessments: BIRAD 2-Benign RECOMMENDATION: Routine screening mammogram in 1 year. Performing Organization Address City/State/Zipcode Phone Number [facility] RAD RESULTS in this encounter Visit Diagnoses Diagnosis Malignant neoplasm of upper-outer quadrant of right breast in female, estrogen receptor positive (HCC) in this encounter
--- OUTSIDE RECORDS SUMMARY | 2018-09-06 14:17 | XMS REPORT | Continuity of Care Document ---
Author Author [facility] Organization [facility] Address Unknown Phone Unavailable Allergies Active Description Code Type Severity Reaction Onset Reported/Identified Relationship to Patient Clinical Status Yes LANOLIN 6227 Drug Allergy N/A N/A Yes LATEX Drug Allergy N/A N/A Yes LIPITOR [id number] Drug Allergy N/A N/A Yes STATINS Drug Allergy N/A N/A Yes SULFA Drug Allergy N/A N/A Yes metformin [id number] Drug Allergy Unknown N/A 12/23/2006 Yes miconazole [id number] Drug Allergy Moderate RASH 04/21/2017 Yes adhesive tape [id number] Drug Allergy Unknown N/A 04/21/2017 Yes ampicillin [id number] Drug Allergy Unknown N/A 04/21/2017 Yes lanolin [id number] Drug Allergy Unknown N/A 04/21/2017 Yes latex [id number] Drug Allergy Unknown N/A 04/21/2017 Yes Psbqwmu-Fvm-Sjq Reductase Inhibitor [id number] Drug Allergy Unknown N/A 04/2017 Medications Medication Packaging Start Date Stop Date Route Dosage Sig LANTUS ML 07/05/2014 Subcutaneous [id number] at bedtime LYRICA 09/04/2014 ORAL 3030 at [...] BODY MASS INDEX (BMI) 40.0-44.9, ADULT 08/13/1029 FABIÁN POSADA MD, Ot Z79.4 SHELTER (CURRENT) USE OF INSULIN 08/13/1029 FABIÁN POSADA MD, Ot Z79.899 OTHER SHELTER (CURRENT) DRUG THERAPY 08/13/1344 RICHMOND PADILLA MD, Ot 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 08/13/1344 RICHMOND PADILLA MD, Ot 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 ENDOMETRIUM 08/13/1344 RICHMOND PADILLA MD Ot E11.319 TYPE 2 DIABETES W UNSP DIABETIC RTNOP W/ 08/13/1344 RICHMOND PADILLA MD, Ot E11.40 TYPE 2 DIABETES MELLITUS WITH DIABETIC N 08/13/1344 RICHMOND PADILLA MD, Ot E66.9 OBESITY, UNSPECIFIED 08/13/1344 RICHMOND PADILLA MD, Ot I10 ESSENTIAL (PRIMARY) HYPERTENSION 08/13/1344 RICHMOND PADILLA MD, Ot K63.9 DISEASE OF INTESTINE, UNSPECIFIED 08/13/1344 RICHMOND PADILLA MD Ot R53.81 OTHER MALAISE 08/13/1344 RICHMOND PADILLA MD Ot 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+] 08/13/1344 RICHMOND PADILLA MD Ot Z45.2 ENCOUNTER FOR ADJUSTMENT AND MANAGEMENT 08/13/1344 RICHMOND PADILLA MD, Ot Z68.33 BODY MASS INDEX (BMI) 33.0-33.9, ADULT 08/13/1344 RICHMOND PADILLA MD, Ot Z79.4 SHELTER (CURRENT) USE OF INSULIN 08/13/1344 RICHMOND PADILLA MD, Ot Z79.899 OTHER SHELTER (CURRENT) DRUG THERAPY 08/13/1344 RICHMOND PADILLA MD Ot Z90.710 ACQUIRED ABSENCE OF BOTH CERVIX AND UTER 08/13/1429 NII BORDEN Ot 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 08/13/1429 NII BORDEN Ot 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 ENDOMETRIUM 08/13/1429 NII BORDEN Ot E11.319 TYPE 2 DIABETES W UNSP DIABETIC RTNOP W/ 08/13/1429 NII BORDEN Ot E11.40 TYPE 2 DIABETES MELLITUS WITH DIABETIC N 08/13/1429 SUHA, BOBAN N Ot E66.9 OBESITY, UNSPECIFIED 08/13/1429 NII BORDEN [...] SHORTNESS OF BREATH 03/28/2015 COLTHARP DO, MAYTE [place] Ot 250.82 03/28/2015 COLTHARP DO, MAYTE Garibay Ot 459.81 03/28/2015 COLTHARP DO, MAYTE Garibay Ot 707.19 04/02/2015 COLTHARP DO, MAYTE Phoenix Ot 250.82 04/02/2015 COLTHARP DO, MAYTE Garibay Ot 459.81 04/02/2015 COLTHARP DO, MAYTE Phoenxi Ot 707.19 04/19/2015 COLTHARP DO, MAYTE Garibay Ot 250.82 04/19/2015 COLTHARP DO, MAYTE Garibay Ot 459.81 04/19/2015 COLTHARP DO, MAYTE Phoenix Ot 707.19 04/27/2015 FENECH DO, YANA S Ot 625.8 04/27/2015 [facility], YANA S Ot 627.1 05/04/2015 [facility] Ot 553.1 05/04/2015 [facility] Ot 562.10 05/15/2015 FENECH DO, YANA S Ot 625.8 05/15/2015 FENECH DO, YANA S Ot 627.1 05/25/2015 COLTHARP DO, MAYTE A Ot 250.82 DIAB W OTH SPEC MANIFEST, TYPE II OR UNS 05/25/2015 COLTHARP DO, MAYTE A Ot 459.81 VENOUS INSUFFICIENCY NOS 05/25/2015 COLTHARP DO, MAYTE A Ot 707.19 ULCER [...] ENCOUNTER FOR ANTINEOPLASTIC CHEMOTHERAP 06/13/2015 FABIÁN POSADA MD, Ot V58.67 LONG-TERM (CURRENT) USE OF INSULIN 06/13/2015 FABIÁN POSADA MD, Ot V58.69 OTH MED,LT,CURRENT USE 06/13/2015 FABIÁN POSADA MD, Ot V85.41 BODY MASS INDEX 40.0-44.9, ADULT 06/20/2015 FABIÁN POSADA MD Ot 182.0 07/12/2015 FABIÁN POSADA MD, Ot 182.0 07/12/2015 FABIÁN POSADA MD Ot 250.50 07/12/2015 FABIÁN POSADA MD Ot 278.01 07/12/2015 FABIÁN POSADA MD Ot 362.01 07/12/2015 FABIÁN POSADA MD Ot 369.4 07/12/2015 FABIÁN POSADA MD Ot 401.9 07/12/2015 FABIÁN POSADA MD, Ot V58.67 07/12/2015 FABIÁN POSADA MD, Ot V58.69 07/12/2015 FABIÁN POSADA MD Ot V85.41 08/06/2015 KAREN MORALES DO, Ot B96.89 OTH BACTERIAL AGENTS THE CAUSE OF DIS 08/06/2015 KAREN MOARLES DO Ot 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 ENDOMETRIUM 08/06/2015 KAREN MORALES DO Ot E11.319 TYPE 2 DIABETES W UNSP DIABETIC RTNOP W/ 08/06/2015 KAREN MORALES DO, Ot E11.649 TYPE 2 [...] OTHER ABNORMALITIES OF BREATHING 08/06/2015 KAREN MORALES DO, Ot R32 UNSPECIFIED URINARY INCONTINENCE 08/06/2015 KAREN MORALES DO, Ot T40.605A ADVERSE EFFECT OF UNSPECIFIED NARCOTICS, 08/06/2015 KAREN MORALES DO, Ot Y84.2 RADIOLOG PROC/RADIOTHRPY CAUSE ABN REACT 08/06/2015 KAREN MORALES DO, Ot Z68.42 BODY MASS INDEX (BMI) 45.0-49.9, ADULT 08/06/2015 KAREN MORALES DO, Ot Z79.4 SHELTER (CURRENT) USE OF INSULIN 09/12/2015 FABIÁN POSADA MD, Ot 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 ENDOMETRIUM 09/12/2015 FABIÁN POSADA MD, Ot E11.319 TYPE 2 DIABETES W UNSP DIABETIC RTNOP W/ 09/12/2015 FABIÁN POSADA MD, Ot E66.01 MORBID (SEVERE) OBESITY DUE TO EXCESS CA 09/12/2015 FABIÁN POSADA MD, Ot 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, DEFINED IN [place] 09/12/2015 FABIÁN POSADA MD, Ot I10 ESSENTIAL (PRIMARY) HYPERTENSION 09/12/2015 FABIÁN POSADA MD, Ot Z51.0 ENCOUNTER FOR ANTINEOPLASTIC RADIATION T 09/12/2015 FABIÁN POSADA MD, Ot Z68.41 BODY MASS INDEX (BMI) 40.0-44.9, ADULT 09/12/2015 FABIÁN POSADA MD, Ot Z79.4 SHELTER (CURRENT) USE OF INSULIN 09/12/2015 FABIÁN POSADA MD, Ot Z79.899 OTHER SHELTER (CURRENT) DRUG THERAPY 09/24/2015 FABIÁN POSADA MD, Ot C54.1 09/24/2015 FABIÁN POSADA MD, Ot E11.319 09/24/2015 ALBINO FREY, FABIÁN Haines Ot E66.01 09/24/2015 ALBINO FREY, FABIÁN Haines Ot H54.8 09/24/2015 ALBINO FREY, FABIÁN Haines Ot I10 09/24/2015 ALBINO FREY, FABIÁN Haines Ot Z51.0 09/24/2015 ALBINO FREY, FABIÁN Haines Ot Z68.41 09/24/2015 ALBINO FREY, FABIÁN Haines Ot Z79.4 09/24/2015 ALBINO FREY, FABIÁN Haines Ot Z79.899 10/10/2015 COLTHARP DO, MAYTE A Ot 250.82 10/10/2015 COLTHARP DO, MAYTE A Ot 459.81 10/10/2015 COLTHARP DO, MAYTE A Ot 707.19 10/10/2015 [facility] APPR[facility]ER Ot 553.1 10/10/2015 [facility] AP[facility] Ot 562.10 10/10/2015 FENECH DO, YANA S Ot 625.8 10/10/2015 [facility] DO, YANA S Ot 627.1 10/10/2015 ALBINO FREY, FABIÁN Hianes Ot 182.0 10/10/2015 ALBINO FREY, FABIÁN Haines Ot C54.1 10/10/2015 ALBINO FREY, FABIÁN Haines Ot E11.319 10/10/2015 ALBINO FREY, FABIÁN Haines Ot E66.01 10/10/2015 ALBINO FREY, FABIÁN Haines Ot H54.8 10/10/2015 ALBINO FREY, FABIÁN Haines Ot I10 10/10/2015 ALBINO FREY, FABIÁN Haines Ot Z51.0 10/10/2015 ALBINO FREY, FABIÁN Haines Ot Z68.41 10/10/2015 ALBINO FREY, FABIÁN Haines Ot Z79.4 10/10/2015 ALBINO FREY, FABIÁN Haines Ot Z79.899 10/10/2015 [facility] Ot C54.1 10/10/2015 [facility] Ot E11.319 10/10/2015 [facility] Ot E66.01 10/10/2015 [facility] Ot H54.8 10/10/2015 [facility] Ot I10 10/10/2015 [facility] AP[facility] Ot Z68.41 10/10/2015 [facility] Ot Z79.4 10/10/2015 [facility] AP[facility] Ot Z79.899 10/10/2015 MARVEL FREY, TELMA Ot C54.1 10/10/2015 MARVEL FREY, TELMA Ot Z01.818 10/11/2015 MARVEL FREY, TELMA Ot 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 ENDOMETRIUM 10/11/2015 MARVEL FREY, TELMA Ot E11.9 TYPE 2 DIABETES MELLITUS WITHOUT COMPLIC 10/15/2015 ALBINO FREY, FABIÁN Yancy Ot C54.1 10/18/2015 ALBINO FREY, FABIÁN Haines Ot C54.1 10/18/2015 ALBINO FREY, FABIÁN K Ot E11.319 10/18/2015 ALBINO FREY, FABIÁN K Ot E66.01 10/18/2015 ALBINO FREY, FABIÁN Yancy Ot H54.8 10/18/2015 ALBINO FREY, FABIÁN K Ot I10 10/18/2015 ALBINO FREY, FABIÁN K Ot Z51.0 10/18/2015 ALBINO FREY, FABIÁN K Ot Z68.41 10/18/2015 ALBINO FREY, FABIÁN K Ot Z79.4 10/18/2015 ALBINO FREY, FABIÁN K Ot Z79.899 10/25/2015 [facility] APPR[facility] Ot C54.1 10/25/2015 [facility] Ot E11.319 10/25/2015 [facility] Ot E66.01 10/25/2015 [facility] Ot H54.8 10/25/2015 [facility] Ot I10 10/25/2015 [facility] Ot Z68.41 10/25/2015 [facility] Ot Z79.4 10/25/2015 [facility] Ot Z79.899 10/31/2015 ALBINO FREY, FABIÁN Haines Ot C54.1 11/07/2015 ALBINO FREY, FABIÁN Haines Ot C54.1 11/07/2015 ALBINO FREY, FABIÁN K Ot E11.319 11/07/2015 ALBINO FREY, FABIÁN Haines Ot E66.01 11/07/2015 ALBINO FREY, FABIÁN Haines Ot H54.8 11/07/2015 ALBINO FREY, FABIÁN K Ot I10 11/07/2015 ALBINO FREY, FABIÁN Yancy Ot Z51.0 11/07/2015 ALBINO FREY, FABIÁN K Ot Z68.41 11/07/2015 ALBINO FREY, FABIÁN Haines Ot Z79.4 11/07/2015 ALBINO FREY, FABIÁN Hanies Ot Z79.899 11/15/2015 ALBINO FREY, FABIÁN Haines [...] 11/26/2015 KAREN MORALES DO Ot R60.0 12/30/2015 ALBINO FREY, FABIÁN Haines Ot 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 ENDOMETRIUM 12/30/2015 ALBINO FREY, FABIÁN Haines Ot E11.319 TYPE 2 DIABETES W UNSP DIABETIC RTNOP W/ 12/30/2015 ALBINO FREY, FABIÁN Haines Ot E66.01 MORBID (SEVERE) OBESITY DUE TO EXCESS CA 12/30/2015 ALBINO FREY, FABIÁN Haines Ot 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, [place]FINED IN [place] 12/30/2015 ALBINO FREY, FABIÁN Haines Ot I10 ESSENTIAL (PRIMARY) HYPERTENSION 12/30/2015 ALBINO FREY, FABIÁN Haines Ot Z51.0 ENCOUNTER FOR ANTINEOPLASTIC RADIATION T 12/30/2015 FABIÁN POSADA MD Ot Z51.11 ENCOUNTER FOR ANTINEOPLASTIC CHEMOTHERAP 12/30/2015 ALBINO FREY, FABIÁN Haines Ot Z68.41 BODY MASS INDEX (BMI) 40.0-44.9, ADULT 12/30/2015 FABIÁN POSADA MD Ot Z79.4 SANITATION SUPERINTENDENT (CURRENT) USE OF INSULIN 12/30/2015 FABIÁN POSADA MD, Ot Z79.899 OTHER SANITATION SUPERINTENDENT (CURRENT) DRUG THERAPY 12/31/2015 FABIÁN POSADA MD, Ot 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 ENDOMETRIUM 12/31/2015 FABIÁN POSADA MD Ot E11.319 TYPE 2 DIABETES W UNSP DIABETIC RTNOP W/ 12/31/2015 FABIÁN POSADA MD Ot E66.01 MORBID (SEVERE) OBESITY DUE TO EXCESS CA 12/31/2015 FABIÁN POSADA MD Ot 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, DEFINED IN [place] 12/31/2015 FABIÁN POSADA MD Ot I10 ESSENTIAL (PRIMARY) HYPERTENSION 12/31/2015 FABIÁN POSADA MD Ot Z51.11 ENCOUNTER FOR ANTINEOPLASTIC CHEMOTHERAP 12/31/2015 FABIÁN POSADA MD, Ot Z68.41 BODY MASS INDEX (BMI) 40.0-44.9, ADULT 12/31/2015 FABIÁN POSADA MD, Ot Z79.4 SANITATION SUPERINTENDENT (CURRENT) USE OF INSULIN 12/31/2015 FABIÁN POSADA MD, Ot Z79.899 OTHER SHELTER (CURRENT) DRUG THERAPY 12/31/2015 FABIÁN POSADA MD, Ot 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 ENDOMETRIUM 12/31/2015 FABIÁN POSADA MD, Ot E11.319 TYPE 2 DIABETES W UNSP DIABETIC RTNOP W/ 12/31/2015 FABIÁN POSADA MD Ot E66.01 MORBID (SEVERE) OBESITY DUE TO EXCESS CA 12/31/2015 FABIÁN POSADA MD Ot 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, [place]FINED IN [place] 12/31/2015 FABIÁN POSADA MD Ot I10 ESSENTIAL (PRIMARY) HYPERTENSION 12/31/2015 FABIÁN POSADA MD Ot Z51.0 ENCOUNTER FOR ANTINEOPLASTIC RADIATION T 12/31/2015 FABIÁN POSADA MD Ot Z68.41 BODY MASS INDEX (BMI) 40.0-44.9, ADULT 12/31/2015 FABIÁN POSADA MD Ot Z79.4 SANITATION SUPERINTENDENT (CURRENT) USE OF INSULIN 12/31/2015 FABIÁN POSADA MD, Ot Z79.899 OTHER SHELTER (CURRENT) DRUG THERAPY 01/04/2016 YANA HODGSON MD Ot E11.622 TYPE 2 DIABETES MELLITUS WITH OTHER SKIN 01/04/2016 YANA HODGSON MD Ot I89.0 LYMPHEDEMA, NOT ELSEWHERE CLASSIFIED 01/04/2016 YANA HODGSON MD Ot L97.221 NON-PRS CHRONIC ULCER OF LEFT CALF LIMIT 01/09/2016 YANA HODGSON MD Ot E11.622 TYPE 2 DIABETES MELLITUS WITH OTHER SKIN 01/09/2016 YANA HODGSON MD, Ot I89.0 LYMPHEDEMA, NOT ELSEWHERE CLASSIFIED 01/09/2016 YANA HODGSON MD, Ot L97.221 NON-PRS CHRONIC ULCER OF LEFT CALF LIMIT 01/10/2016 FABIÁN POSADA MD, Ot 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 ENDOMETRIUM 01/10/2016 FABIÁN POSADA MD, Ot E11.319 TYPE 2 [...] ADULT 01/10/2016 FABIÁN POSADA MD, Ot Z79.4 SANITATION SUPERINTENDENT (CURRENT) USE OF INSULIN 01/10/2016 FABIÁN POSADA MD, Ot Z79.899 OTHER SHELTER (CURRENT) DRUG THERAPY 01/14/2016 FABIÁN POSADA MD Ot R06.02 SHORTNESS OF BREATH 01/16/2016 FABIÁN POSADA MD Ot R06.02 SHORTNESS OF [...] BLINDNESS, [place]FINED IN [place] 01/31/2016 FABIÁN POSADA MD Ot I10 ESSENTIAL (PRIMARY) HYPERTENSION 01/31/2016 FABIÁN POSADA MD, Ot Z51.0 ENCOUNTER FOR ANTINEOPLASTIC RADIATION T 01/31/2016 FABIÁN POSADA MD, Ot Z68.41 BODY MASS INDEX (BMI) 40.0-44.9, ADULT 01/31/2016 FABIÁN POSADA MD, Ot Z79.4 SANITATION SUPERINTENDENT (CURRENT) USE OF INSULIN 01/31/2016 FABIÁN POSADA MD, Ot Z79.899 OTHER SHELTER (CURRENT) DRUG THERAPY 02/05/2016 FABIÁN POSADA MD, Ot 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 ENDOMETRIUM 03/17/2016 JAMEL DO, HUGH K Ot 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 ENDOMETRIUM 03/17/2016 JAMEL DO, HUGH K Ot 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 03/17/2016 JAMEL DO, HUGH K Ot E11.649 TYPE 2 DIABETES MELLITUS WITH HYPOGLYCEM 03/17/2016 JAMEL DO, HUGH K Ot E66.9 OBESITY, UNSPECIFIED 03/17/2016 JAMEL DO, HUGH K Ot N39.0 URINARY TRACT INFECTION, SITE NOT SPECIF 03/17/2016 JAMEL DO, HUGH K Ot Z79.4 SHELTER (CURRENT) USE OF INSULIN 03/17/2016 JAMEL DO, HUGH K Ot Z79.899 OTHER [...] 03/20/2016 JAMEL DO, HUGH K Ot Z79.4 SHELTER (CURRENT) USE OF INSULIN 03/20/2016 JAMEL DO, HUGH K Ot Z79.899 OTHER SANITATION SUPERINTENDENT (CURRENT) DRUG THERAPY 03/20/2016 JAMEL DO, HUGH K Ot 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 ENDOMETRIUM 03/20/2016 HUGH MCCULLOUGH DO Ot 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 03/20/2016 HUGH MCCULLOUGH DO Ot E11.649 TYPE 2 DIABETES MELLITUS WITH HYPOGLYCEM 03/20/2016 HUGH MCCULLOUGH DO Ot E66.9 OBESITY, UNSPECIFIED 03/20/2016 HUGH MCCULLOUGH DO Ot N39.0 URINARY TRACT INFECTION, SITE NOT SPECIF 03/20/2016 HUGH MCCULLOUGH DO Ot Z79.4 SANITATION SUPERINTENDENT (CURRENT) USE OF INSULIN 03/20/2016 HUGH MCCULLOUGH DO Ot Z79.899 OTHER SHELTER (CURRENT) DRUG THERAPY 03/20/2016 COLTHARP MAYTE BAEZ A Ot 250.82 DIAB W OTH SPEC MANIFEST, TYPE II OR UNS 03/20/2016 COLTAYLORMAYTE CARDOSO DO Ot 459.81 VENOUS INSUFFICIENCY NOS 03/20/2016 COLARP MAYTE BAEZ Ot 707.19 ULCER OF OTHER PART OF LOWER LIMB 03/20/2016 [facility] Ot 553.1 UMBILICAL HERNIA 03/20/2016 [facility] Ot 562.10 DIVERTICULOSIS COLON (W/O MENT OF HEMORR 03/20/2016 YANA BYRNES DO Ot 625.8 FEM GENITAL SYMPTOMS NEC 03/20/2016 YANA BYRNES DO Ot 627.1 POSTMENOPAUSAL BLEEDING 03/20/2016 ALBINO FREY, FABIÁN Haines Ot 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 03/20/2016 ALBINO FREY, FABIÁN Haines Ot 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 ENDOMETRIUM 03/20/2016 ANNETTE JIMENEZ Ot 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 ENDOMETRIUM 03/20/2016 ANNETTE JIMENEZ Ot E11.319 TYPE 2 DIABETES W UNSP DIABETIC RTNOP W/ 03/20/2016 ANNETTE JIMENEZ Ot E66.01 MORBID (SEVERE) OBESITY DUE TO EXCESS CA 03/20/2016 [facility] Ot 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, DEFINED IN [place] 03/20/2016 ANNETTE JIMENEZ Ot I10 ESSENTIAL (PRIMARY) HYPERTENSION 03/20/2016 ANNETTE JIMENEZ Ot Z68.41 BODY MASS INDEX (BMI) 40.0-44.9, ADULT 03/20/2016 ANNETTE JIMENEZ Ot Z79.4 SHELTER (CURRENT) USE OF INSULIN 03/20/2016 ANNETTE JIMENEZ Ot Z79.899 OTHER SANITATION SUPERINTENDENT (CURRENT) DRUG THERAPY 03/20/2016 TELMA GRIER MD, Ot 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 ENDOMETRIUM 03/20/2016 TELMA GRIER MD, Ot Z01.818 ENCOUNTER FOR OTHER PREPROCEDURAL EXAMIN 03/20/2016 KAREN MORALES DO Ot R60.0 LOCALIZED EDEMA 03/20/2016 FABIÁN POSADA MD, Ot 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 ENDOMETRIUM 03/20/2016 FABIÁN POSADA MD, Ot E11.319 TYPE 2 DIABETES W UNSP DIABETIC RTNOP W/ 03/20/2016 FABIÁN POSADA MD, Ot E66.01 MORBID (SEVERE) OBESITY DUE TO EXCESS CA 03/20/2016 FABIÁN POSADA MD Ot 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, DEFINED IN [place] 03/20/2016 FABIÁN POSADA MD Ot I10 ESSENTIAL (PRIMARY) HYPERTENSION 03/20/2016 FABIÁN POSADA MD Ot Z51.0 ENCOUNTER FOR ANTINEOPLASTIC RADIATION T 03/20/2016 FABIÁN POSADA MD Ot Z68.41 BODY MASS INDEX (BMI) 40.0-44.9, ADULT 03/20/2016 FABIÁN POSADA MD, Ot Z79.4 SHELTER (CURRENT) USE OF INSULIN 03/20/2016 FABIÁN POSADA MD, Ot Z79.899 OTHER SANITATION SUPERINTENDENT (CURRENT) DRUG THERAPY 03/20/2016 FABIÁN POSADA MD Ot R06.02 SHORTNESS OF BREATH 03/20/2016 FABIÁN POSADA MD, Ot 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 ENDOMETRIUM 03/20/2016 HUGH MCCULLOUGH DO Ot 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 ENDOMETRIUM 03/20/2016 HUGH MCCULLOUGH DO Ot 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 03/20/2016 HUGH MCCULLOUGH DO Ot E11.649 TYPE 2 DIABETES MELLITUS WITH HYPOGLYCEM 03/20/2016 HUGH MCCULLOUGH DO Ot E66.9 OBESITY, UNSPECIFIED 03/20/2016 HUGH MCCULLOUGH DO Ot N39.0 URINARY TRACT INFECTION, SITE NOT SPECIF 03/20/2016 HUGH MCCULLOUGH DO Ot Z79.4 SANITATION SUPERINTENDENT (CURRENT) USE OF INSULIN 03/20/2016 HUGH MCCULLOUGH DO Ot Z79.899 OTHER SHELTER (CURRENT) DRUG THERAPY 03/24/2016 FABIÁN POSADA MD, Ot 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 ENDOMETRIUM 03/24/2016 FABIÁN POSADA MD, Ot E11.319 TYPE 2 DIABETES W [facility] DIABETIC RTNOP W/ 03/24/2016 FABIÁN POSADA MD Ot E66.01 MORBID (SEVERE) OBESITY DUE TO EXCESS CA 03/24/2016 FABIÁN POSADA MD, Ot 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, DEFINED IN [place] 03/24/2016 FABIÁN POSADA MD, Ot I10 ESSENTIAL (PRIMARY) HYPERTENSION 03/24/2016 FABIÁN POSADA MD Ot Z51.0 ENCOUNTER FOR ANTINEOPLASTIC RADIATION T 03/24/2016 FABIÁN POSADA MD, Ot Z68.41 BODY MASS INDEX (BMI) 40.0-44.9, ADULT 03/24/2016 FABIÁN POSADA MD, Ot Z79.4 SANITATION SUPERINTENDENT (CURRENT) USE OF INSULIN 03/24/2016 FABIÁN POSADA MD, Ot Z79.899 OTHER SANITATION SUPERINTENDENT (CURRENT) DRUG THERAPY 04/02/2016 FABIÁN POSADA MD, Ot 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 ENDOMETRIUM 04/02/2016 FABIÁN POSADA MD, Ot E11.319 TYPE 2 DIABETES W [facility] DIABETIC RTNOP W04/02/2016 FABIÁN POSAAD MD, Ot E66.01 MORBID (SEVERE) OBESITY DUE TO EXCESS CA 04/02/2016 FABIÁN POSADA MD, Ot 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, DEFINED IN [place] 04/02/2016 FABIÁN POSADA MD, Ot I10 ESSENTIAL (PRIMARY) HYPERTENSION 04/02/2016 FABIÁN POSADA MD Ot R82.90 UNSPECIFIED ABNORMAL FINDINGS IN URINE 04/02/2016 FABIÁN POSADA MD, Ot R82.99 OTHER ABNORMAL FINDINGS IN URINE 04/02/2016 FABIÁN POSADA MD Ot Z51.11 ENCOUNTER FOR ANTINEOPLASTIC CHEMOTHERAP 04/02/2016 FABIÁN POSADA MD, Ot Z68.41 BODY MASS INDEX (BMI) 40.0-44.9, ADULT 04/02/2016 FABIÁN POSADA MD, Ot Z79.4 SANITATION SUPERINTENDENT (CURRENT) USE OF INSULIN 04/02/2016 FABIÁN POSADA MD, Ot Z79.899 OTHER SHELTER (CURRENT) DRUG THERAPY 04/09/2016 HUGH MCCULLOUGH DO Ot 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 ENDOMETRIUM 04/09/2016 JAMEL DO HUGH Haines Ot 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 04/09/2016 JAMEL DO HUGH Yancy Ot E11.649 TYPE 2 DIABETES MELLITUS WITH HYPOGLYCEM 04/09/2016 JAMEL BAEZ HUGH Yancy Ot E66.9 OBESITY, UNSPECIFIED 04/09/2016 JAMEL BAEZ HUGH Haines Ot N39.0 URINARY TRACT INFECTION, SITE NOT SPECIF 04/09/2016 HUGH MCCULLOUGH DO Ot Z79.4 SANITATION SUPERINTENDENT (CURRENT) USE OF INSULIN 04/09/2016 HUGH MCCULLOUGH DO Ot Z79.899 OTHER SANITATION SUPERINTENDENT (CURRENT) DRUG THERAPY 04/10/2016 FABIÁN POSADA MD, Ot 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 ENDOMETRIUM 04/10/2016 FABIÁN POSADA MD, Ot E11.319 TYPE 2 DIABETES W UNSP DIABETIC RTNOP W/ 04/10/2016 FABIÁN POSADA MD, Ot E66.01 MORBID (SEVERE) OBESITY DUE TO EXCESS CA 04/10/2016 FABIÁN POSADA MD Ot 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81 VENOUS INSUFFICIENCY NOS 04/10/2016 COLMAYTE RICHMOND DO Ot 707.19 ULCER OF OTHER PART OF LOWER LIMB 04/10/2016 [facility] Ot 553.1 UMBILICAL HERNIA 04/10/2016 [facility] APPR[facility]ER Ot 562.10 DIVERTICULOSIS COLON (W/O MENT OF HEMORR 04/10/2016 YANA BYRNES DO Ot 625.8 FEM GENITAL SYMPTOMS NEC 04/10/2016 YANA BYRNES DO Ot 627.1 POSTMENOPAUSAL BLEEDING 04/10/2016 FABIÁN POSADA MD Ot 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 04/10/2016 FABIÁN POSADA MD, Ot 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 ENDOMETRIUM 04/10/2016 ANNETTE JIMENEZP Ot 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 ENDOMETRIUM 04/10/2016 ANNETTE JIMENEZP Ot E11.319 TYPE 2 DIABETES W UNSP DIABETIC RTNOP W/ 04/10/2016 ANNETTE JIMENEZ Ot E66.01 MORBID (SEVERE) OBESITY DUE TO EXCESS CA 04/10/2016 ANNTETE JIMENEZ Ot 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, DEFINED IN [place] 04/10/2016 ANNETTE JIMENEZ Ot I10 ESSENTIAL (PRIMARY) HYPERTENSION 04/10/2016 ANNETTE JIMENEZP Ot Z68.41 BODY MASS INDEX (BMI) 40.0-44.9, ADULT 04/10/2016 ANNETTE JIMENEZP Ot Z79.4 SHELTER (CURRENT) USE OF INSULIN 04/10/2016 ANNETTE JIMENEZP Ot Z79.899 OTHER SANITATION SUPERINTENDENT (CURRENT) DRUG THERAPY 04/10/2016 TELMA GRIER MD Ot 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 ENDOMETRIUM 04/10/2016 TELMA GRIER MD Ot Z01.818 ENCOUNTER FOR OTHER PREPROCEDURAL EXAMIN 04/10/2016 KAREN MORALES DO Ot R60.0 LOCALIZED EDEMA 04/10/2016 FABIÁN POSADA MD Ot R06.02 SHORTNESS OF BREATH 04/10/2016 FABIÁN POSADA MD Ot 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 ENDOMETRIUM 04/10/2016 HUGH MCCULLOUGH DO Ot 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 ENDOMETRIUM 04/10/2016 HUGH MCCULLOUGH DO Ot 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 04/10/2016 HUGH MCCULLOUGH DO Ot E11.649 TYPE 2 DIABETES MELLITUS WITH HYPOGLYCEM 04/10/2016 HUGH MCCULLOUGH DO Ot E66.9 OBESITY, UNSPECIFIED 04/10/2016 HUGH MCCULLOUGH DO Ot N39.0 URINARY TRACT INFECTION, SITE NOT SPECIF 04/10/2016 HUGH MCCULLOUGH DO, Ot Z79.4 SHELTER (CURRENT) USE OF INSULIN 04/10/2016 HUGH MCCULLOUGH DO, Ot Z79.899 OTHER SANITATION SUPERINTENDENT (CURRENT) DRUG THERAPY 04/10/2016 FABIÁN POSADA MD, [...] 04/10/2016 FABIÁN POSADA MD, Ot Z79.899 OTHER SANITATION SUPERINTENDENT (CURRENT) DRUG THERAPY 04/24/2016 KAREN MORALES DO Ot R19.7 DIARRHEA, UNSPECIFIED 05/07/2016 KAREN MORALES DO Ot R19.7 DIARRHEA, UNSPECIFIED 05/07/2016 FABIÁN POSADA MD, Ot 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 ENDOMETRIUM 05/07/2016 FABIÁN POSADA MD, Ot E11.319 [facility] 05/07/2016 FABIÁN POSADA MD, Ot E66.01 MORBID (SEVERE) OBESITY DUE TO EXCESS CA 05/07/2016 FABIÁN POSADA MD, Ot 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, DEFINED IN [place] 05/07/2016 FABIÁN POSADA MD, Ot I10 ESSENTIAL (PRIMARY) HYPERTENSION 05/07/2016 FABIÁN POSADA MD, Ot R82.99 OTHER ABNORMAL FINDINGS IN URINE 05/07/2016 FABIÁN POSADA MD Ot Z51.11 ENCOUNTER FOR ANTINEOPLASTIC CHEMOTHERAP 05/07/2016 FABIÁN POSADA MD, Ot Z68.41 BODY MASS INDEX (BMI) 40.0-44.9, ADULT 05/07/2016 FABIÁN POSADA MD Ot Z79.4 SHELTER (CURRENT) USE OF INSULIN 05/07/2016 FABIÁN POSADA MD, Ot Z79.899 OTHER SHELTER (CURRENT) DRUG THERAPY 05/07/2016 FABIÁN POSADA MD, Ot 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 ENDOMETRIUM 05/07/2016 FABIÁN POSADA MD Ot E11.319 TYPE 2 DIABETES W [facility] DIABETIC RTNOP W05/07/2016 FABIÁN POSADA MD, Ot E66.01 MORBID (SEVERE) [...] ADULT 05/07/2016 FABIÁN POSADA MD, Ot Z79.4 SANITATION SUPERINTENDENT (CURRENT) USE OF INSULIN 05/07/2016 FABIÁN POSADA MD, Ot Z79.899 OTHER SANITATION SUPERINTENDENT (CURRENT) DRUG THERAPY 05/09/2016 KAREN MORALES DO Ot R19.7 DIARRHEA, UNSPECIFIED 05/26/2016 KAREN MORALES DO Ot R19.7 DIARRHEA, UNSPECIFIED 06/10/2016 FABIÁN POSADA MD, Ot 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 ENDOMETRIUM 06/10/2016 FABIÁN POSADA MD, Ot E11.319 TYPE 2 DIABETES W [facility] DIABETIC RTNOP W/ 06/10/2016 FABIÁN POSADA MD, [...] ADULT 06/10/2016 FABIÁN POSADA MD, Ot Z79.4 SHELTER (CURRENT) USE OF INSULIN 06/10/2016 FABIÁN POSADA MD, Ot Z79.899 OTHER SANITATION SUPERINTENDENT (CURRENT) DRUG THERAPY 06/13/2016 KAREN MORALES DO Ot R30.0 DYSURIA 06/23/2016 FABIÁN POSADA MD, Ot 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 ENDOMETRIUM 06/23/2016 FABIÁN POSADA MD Ot E11.319 TYPE 2 DIABETES W UNSP DIABETIC RTNOP W/ 06/23/2016 FABIÁN POSADA MD Ot E66.01 MORBID (SEVERE) OBESITY DUE TO EXCESS CA 06/23/2016 FABIÁN POSADA MD Ot 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, [place]FINED IN [place] 06/23/2016 FABIÁN POSADA MD Ot I10 ESSENTIAL (PRIMARY) HYPERTENSION 06/23/2016 FABIÁN POSADA MD Ot R82.99 OTHER ABNORMAL FINDINGS IN URINE 06/23/2016 FABIÁN POSADA MD, Ot Z68.41 BODY MASS INDEX (BMI) 40.0-44.9, ADULT 06/23/2016 FABIÁN POSADA MD, Ot Z79.4 SANITATION SUPERINTENDENT (CURRENT) USE OF INSULIN 06/23/2016 FABIÁN POSADA MD, Ot Z79.899 OTHER SANITATION SUPERINTENDENT (CURRENT) DRUG THERAPY 06/23/2016 KAREN MORALES DO Ot R30.0 DYSURIA 07/10/2016 COLYI BAEZ MAYTE A Ot 250.82 DIAB W OTH SPEC MANIFEST, TYPE II OR UNS 07/10/2016 COLYI BAEZ MAYTE A Ot 459.81 VENOUS INSUFFICIENCY NOS 07/10/2016 IZA BAEZ MAYTE A Ot 707.19 ULCER OF OTHER PART OF LOWER LIMB 07/10/2016 [facility]PR[facility]ER Ot 553.1 UMBILICAL HERNIA 07/10/2016 [facility] APPR[facility]ER Ot 562.10 DIVERTICULOSIS COLON (W/O MENT OF HEMORR 07/10/2016 YANA BYRNES DO Ot 625.8 FEM GENITAL SYMPTOMS NEC 07/10/2016 YANA BYRNES DO Ot 627.1 POSTMENOPAUSAL BLEEDING 07/10/2016 FABIÁN POSADA MD Ot 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 07/10/2016 FABIÁN POSADA MD Ot 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 ENDOMETRIUM 07/10/2016 ANNETTE JIMENEZ Ot 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 ENDOMETRIUM 07/10/2016 ANNETTE JIMENEZ Ot E11.319 TYPE 2 DIABETES W [facility] DIABETIC RTNOP W/ 07/10/2016 JIMENEZANNETTE Krueger DEXTER Ot E66.01 MORBID (SEVERE) OBESITY DUE TO EXCESS CA 07/10/2016 ANNETTE JIMENEZ DEXTER Ot 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, [place]FINED [place] 07/10/2016 JIMENEZANNETTE Krueger DEXTER Ot I10 ESSENTIAL (PRIMARY) HYPERTENSION 07/10/2016 JIMENEZANNETTE Krueger DEXTER Ot Z68.41 BODY MASS INDEX (BMI) 40.0-44.9, ADULT 07/10/2016 JIMENEZANNETTE Krueger DXETER Ot Z79.4 SANITATION SUPERINTENDENT (CURRENT) USE OF INSULIN 07/10/2016 JIMENEZANNETTE Krueger DEXTER Ot Z79.899 OTHER SHELTER (CURRENT) DRUG THERAPY 07/10/2016 TELMA GRIER MD, Ot 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 ENDOMETRIUM 07/10/2016 TELMA GRIER MD Ot Z01.818 ENCOUNTER FOR OTHER PREPROCEDURAL EXAMIN 07/10/2016 KAREN MORALES DO Ot R60.0 LOCALIZED EDEMA 07/10/2016 FABIÁN POSADA MD Ot R06.02 SHORTNESS OF BREATH 07/10/2016 FABIÁN POSADA MD, Ot 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 ENDOMETRIUM 07/10/2016 KAREN MORALES DO Ot R19.7 DIARRHEA, UNSPECIFIED 07/10/2016 KAREN MORALES DO Ot R30.0 DYSURIA 07/10/2016 FABIÁN POSADA MD Ot 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 ENDOMETRIUM 07/10/2016 FABIÁN POSADA MD Ot E11.319 TYPE 2 DIABETES W [facility] DIABETIC RTNOP W/ 07/10/2016 FABIÁN POSADA MD Ot E66.01 MORBID (SEVERE) OBESITY DUE TO EXCESS CA 07/10/2016 FABIÁN POSADA MD Ot 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, [place]ED [place] 07/10/2016 FABIÁN POSADA MD Ot I10 ESSENTIAL (PRIMARY) HYPERTENSION 07/10/2016 FABIÁN POSADA MD Ot R82.99 OTHER ABNORMAL FINDINGS IN URINE 07/10/2016 FABIÁN POSADA MD Ot Z68.41 BODY MASS INDEX (BMI) 40.0-44.9, ADULT 07/10/2016 FABIÁN POSADA MD Ot Z79.4 SHELTER (CURRENT) USE OF INSULIN 07/10/2016 FABIÁN POSADA MD, Ot Z79.899 OTHER SANITATION SUPERINTENDENT (CURRENT) DRUG THERAPY 07/10/2016 KAREN MORALES DO [...] BLINDNESS, [place]ED [place] 07/11/2016 FABIÁN POSADA MD, Ot I10 ESSENTIAL (PRIMARY) HYPERTENSION 07/11/2016 FABIÁN POSADA MD, Ot R82.99 OTHER ABNORMAL FINDINGS IN URINE 07/11/2016 FABIÁN POSADA MD, Ot Z68.41 BODY MASS INDEX (BMI) 40.0-44.9, ADULT 07/11/2016 FABIÁN POSADA MD, Ot Z79.4 SHELTER (CURRENT) USE OF INSULIN 07/11/2016 FABIÁN POSADA MD, Ot Z79.899 OTHER SANITATION SUPERINTENDENT (CURRENT) DRUG THERAPY 08/01/2016 FABIÁN POSADA MD, Ot 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 ENDOMETRIUM 08/13/2016 FABIÁN POSADA MD, Ot 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 ENDOMETRIUM 08/13/2016 FABIÁN POSADA MD, Ot E11.319 TYPE 2 DIABETES W [facility] DIABETIC RTNOP W/ 08/13/2016 FABIÁN POSADA MD, Ot E66.01 MORBID (SEVERE) OBESITY DUE TO EXCESS CA 08/13/2016 FABIÁN POSADA MD, Ot 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, [place]ED [place] 08/13/2016 FABIÁN POSADA MD, Ot I10 ESSENTIAL (PRIMARY) HYPERTENSION 08/13/2016 FABIÁN POSADA MD, Ot R82.99 OTHER ABNORMAL FINDINGS IN URINE 08/13/2016 FABIÁN POSADA MD, Ot Z68.41 BODY MASS INDEX (BMI) 40.0-44.9, ADULT 08/13/2016 FABIÁN POSADA MD, Ot Z79.4 SANITATION SUPERINTENDENT (CURRENT) USE OF INSULIN 08/13/2016 FABIÁN POSADA MD, Ot Z79.899 OTHER SHELTER (CURRENT) DRUG THERAPY 09/11/2016 FABIÁN POSADA MD, Ot 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 ENDOMETRIUM 09/11/2016 FABIÁN POSADA MD, Ot E11.319 TYPE 2 DIABETES W [facility] DIABETIC RTNOP W/ 09/11/2016 FABIÁN POSADA MD, Ot E66.01 MORBID (SEVERE) OBESITY DUE TO EXCESS CA 09/11/2016 FABIÁN POSADA MD Ot 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, [place] 09/11/2016 FABIÁN POSADA MD Ot I10 ESSENTIAL (PRIMARY) HYPERTENSION 09/11/2016 FABIÁN POSADA MD Ot R82.99 OTHER ABNORMAL FINDINGS IN URINE 09/11/2016 FABIÁN POSADA MD, Ot Z68.41 BODY MASS INDEX (BMI) 40.0-44.9, ADULT 09/11/2016 FABIÁN POSADA MD, Ot Z79.4 SHELTER (CURRENT) USE OF INSULIN 09/11/2016 FABIÁN POSADA MD, Ot Z79.899 OTHER SANITATION SUPERINTENDENT (CURRENT) DRUG THERAPY 10/08/2016 FABIÁN POSADA MD, Ot 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 ENDOMETRIUM 10/08/2016 FABIÁN POSADA MD, Ot E11.319 TYPE 2 DIABETES W [facility] DIABETIC RTNOP W/ 10/08/2016 FABIÁN POSADA MD, Ot E66.01 MORBID (SEVERE) OBESITY DUE TO EXCESS CA 10/08/2016 FABIÁN POSADA MD, Ot 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, [place]FINED [place] 10/08/2016 FABIÁN POSADA MD, Ot I10 ESSENTIAL (PRIMARY) HYPERTENSION 10/08/2016 FABIÁN POSADA MD Ot R82.99 OTHER ABNORMAL FINDINGS IN URINE 10/08/2016 FABIÁN POSADA MD Ot Z45.2 ENCOUNTER FOR ADJUSTMENT AND MANAGEMENT 10/08/2016 FABIÁN POSADA MD, Ot Z68.41 BODY MASS INDEX (BMI) 40.0-44.9, ADULT 10/08/2016 FABIÁN POSADA MD Ot Z79.4 SHELTER (CURRENT) USE OF INSULIN 10/08/2016 FABIÁN POSADA MD, Ot Z79.899 OTHER SHELTER (CURRENT) DRUG THERAPY 10/09/2016 FABIÁN POSADA MD, Ot 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 ENDOMETRIUM 10/09/2016 FABIÁN POSADA MD, Ot E11.319 TYPE 2 DIABETES W [facility] DIABETIC RTNOP W10/09/2016 FABIÁN POSADA MD, Ot E66.01 MORBID (SEVERE) [...] ADULT 10/09/2016 FABIÁN POSADA MD, Ot Z79.4 SANITATION SUPERINTENDENT (CURRENT) USE OF INSULIN 10/09/2016 FABIÁN POSADA MD, Ot Z79.899 OTHER SHELTER (CURRENT) DRUG THERAPY 10/10/2016 FABIÁN POSADA MD, Ot 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 ENDOMETRIUM 10/10/2016 FABIÁN POSADA MD Ot E11.319 TYPE 2 DIABETES W [facility] DIABETIC RTNOP W/ 10/10/2016 FABIÁN POSADA MD, [...] ADULT 10/10/2016 FABIÁN POSADA MD, Ot Z79.4 SANITATION SUPERINTENDENT (CURRENT) USE OF INSULIN 10/10/2016 FABIÁN POSADA MD, Ot Z79.899 OTHER SHELTER (CURRENT) DRUG THERAPY 10/14/2016 FABIÁN POSADA MD, Ot 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 ENDOMETRIUM 10/14/2016 FABIÁN POSADA MD Ot E11.319 TYPE 2 DIABETES W [facility] DIABETIC RTNOP W/ 10/14/2016 FABIÁN POSADA MD Ot E66.01 MORBID (SEVERE) OBESITY DUE TO EXCESS CA 10/14/2016 FABIÁN POSADA MD Ot 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, [place]FINED [place] 10/14/2016 FABIÁN POSADA MD, Ot I10 ESSENTIAL (PRIMARY) HYPERTENSION 10/14/2016 FABIÁN POSADA MD Ot R82.99 OTHER ABNORMAL FINDINGS IN URINE 10/14/2016 FABIÁN POSADA MD, Ot Z68.41 BODY MASS INDEX (BMI) 40.0-44.9, ADULT 10/14/2016 FABIÁN POSADA MD, Ot Z79.4 SANITATION SUPERINTENDENT (CURRENT) USE OF INSULIN 10/14/2016 FABIÁN POSADA MD, Ot Z79.899 OTHER SHELTER (CURRENT) DRUG THERAPY 12/04/2016 FABIÁN POSADA MD, Ot 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899 OTHER SANITATION SUPERINTENDENT (CURRENT) DRUG THERAPY 01/11/2017 FABIÁN POSADA MD, Ot 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 ENDOMETRIUM 01/11/2017 FABIÁN POSADA MD, Ot 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 01/11/2017 FABIÁN POSADA MD, Ot E11.319 TYPE 2 [...] ENCOUNTER FOR ADJUSTMENT AND MANAGEMENT 01/11/2017 FABIÁN POSAAD MD, Ot Z68.41 BODY MASS INDEX (BMI) 40.0-44.9, ADULT 01/11/2017 FABIÁN POSADA MD, Ot Z79.4 SHELTER (CURRENT) USE OF INSULIN 01/11/2017 FABIÁN POSADA MD, Ot Z79.899 OTHER SHELTER (CURRENT) DRUG THERAPY 01/12/2017 FABIÁN POSADA MD, Ot 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 ENDOMETRIUM 01/12/2017 FABIÁN POSADA MD, Ot 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 01/12/2017 FABIÁN POSADA MD, Ot E11.319 [facility]/ 01/12/2017 FABIÁN POSADA MD, [...] ADULT 01/12/2017 FABIÁN POSADA MD, Ot Z79.4 SHELTER (CURRENT) USE OF INSULIN 01/12/2017 FABIÁN POSADA MD, Ot Z79.899 OTHER SANITATION SUPERINTENDENT (CURRENT) DRUG THERAPY 01/13/2017 FABIÁN POSADA MD, Ot 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 ENDOMETRIUM 01/13/2017 FABIÁN POSADA MD, Ot E11.319 TYPE 2 DIABETES W [facility] DIABETIC RTNOP W/ 01/13/2017 FABIÁN POSADA MD, [...] ADULT 01/13/2017 FABIÁN POSADA MD, Ot Z79.4 SHELTER (CURRENT) USE OF INSULIN 01/13/2017 FABIÁN POSADA MD, Ot Z79.899 OTHER SHELTER (CURRENT) DRUG THERAPY 01/14/2017 FABIÁN POSADA MD, Ot 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 ENDOMETRIUM 01/14/2017 FABIÁN POSADA MD, Ot 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 01/14/2017 AFBIÁN POSADA MD, Ot E11.319 TYPE 2 DIABETES W [facility] DIABETIC RTNOP W/ 01/14/2017 FABIÁN POSADA MD, [...] ADULT 01/14/2017 FABIÁN POSADA MD, Ot Z79.4 SHELTER (CURRENT) USE OF INSULIN 01/14/2017 FABIÁN POSADA MD, Ot Z79.899 OTHER SHELTER (CURRENT) DRUG THERAPY 02/05/2017 COLTHARP MAYTE BAEZ A Ot 250.82 DIAB W OTH SPEC MANIFEST, TYPE II OR UNS 02/05/2017 COLTHMAYTE CARDOSO DO Ot 459.81 VENOUS INSUFFICIENCY NOS 02/05/2017 COLMAYTE CARDOSO DO Ot 707.19 ULCER OF OTHER PART OF LOWER LIMB 02/05/2017 [facility] APPR[facility]ER Ot 553.1 UMBILICAL HERNIA 02/05/2017 [facility] APPR[facility]ER Ot 562.10 DIVERTICULOSIS COLON (W/O MENT OF HEMORR 02/05/2017 YANA BYRNES DO Ot 625.8 FEM GENITAL SYMPTOMS NEC 02/05/2017 YANA BYRNES DO Ot 627.1 POSTMENOPAUSAL BLEEDING 02/05/2017 FABIÁN POSADA MD Ot 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 02/05/2017 FABIÁN POSADA MD, Ot 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 ENDOMETRIUM 02/05/2017 ANNETTE JIMENEZ Ot 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 ENDOMETRIUM 02/05/2017 ANNETTE JIMENEZ Ot E11.319 TYPE 2 DIABETES W [facility] DIABETIC RTNOP W/ 02/05/2017 ANNETTE JIMENEZ Ot E66.01 MORBID (SEVERE) OBESITY DUE TO EXCESS CA 02/05/2017 ANNETTE JIMENEZP Ot 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, [place]FINED IN [place] 02/05/2017 [facility] APPR[facility] Ot I10 ESSENTIAL (PRIMARY) HYPERTENSION 02/05/2017 ANNETTE JIMENEZP Ot Z68.41 BODY MASS INDEX (BMI) 40.0-44.9, ADULT 02/05/2017 ANNETTE JIMENEZP Ot Z79.4 SHELTER (CURRENT) USE OF INSULIN 02/05/2017 [facility] APPR[facility] Ot Z79.899 OTHER SANITATION SUPERINTENDENT (CURRENT) DRUG THERAPY 02/05/2017 TELMA GRIER MD, Ot 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 ENDOMETRIUM 02/05/2017 TELMA GRIER MD Ot Z01.818 ENCOUNTER FOR OTHER PREPROCEDURAL EXAMIN 02/05/2017 KAREN MORALES DO Ot R60.0 LOCALIZED EDEMA 02/05/2017 FABIÁN POSADA MD Ot R06.02 SHORTNESS OF BREATH 02/05/2017 FABIÁN POSADA MD, Ot 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 ENDOMETRIUM 02/05/2017 FABIÁN POSADA MD, Ot 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 ENDOMETRIUM 02/05/2017 KAREN MORALES DO Ot R19.7 DIARRHEA, UNSPECIFIED 02/05/2017 KAREN MORALES DO Ot R30.0 DYSURIA 02/05/2017 FABIÁN POSADA MD Ot 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 ENDOMETRIUM 02/05/2017 FABIÁN POSADA MD Ot E11.319 TYPE 2 DIABETES W [facility] DIABETIC RTNOP W/ 02/05/2017 FABIÁN POSADA MD Ot E66.01 MORBID (SEVERE) OBESITY DUE TO EXCESS CA 02/05/2017 FABIÁN POSADA MD Ot 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, [place]FINED [place] 02/05/2017 FABIÁN POSADA MD Ot I10 ESSENTIAL (PRIMARY) HYPERTENSION 02/05/2017 FABIÁN POSADA MD Ot R82.99 OTHER ABNORMAL FINDINGS IN URINE 02/05/2017 FABIÁN POSADA MD Ot Z68.41 BODY MASS INDEX (BMI) 40.0-44.9, ADULT 02/05/2017 FABIÁN POSADA MD, Ot Z79.4 SHELTER (CURRENT) USE OF INSULIN 02/05/2017 FABIÁN POSADA MD, Ot Z79.899 OTHER SHELTER (CURRENT) DRUG THERAPY 02/09/2017 FABIÁN POSADA MD, [...] Ot 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 ENDOMETRIUM 02/10/2017 AFBIÁN POSADA MD, Ot K42.9 UMBILICAL HERNIA WITHOUT [...] SPEC MANIFEST, TYPE II OR UNS 02/19/2017 COLTHARP DO MAYTE A Ot 459.81 VENOUS INSUFFICIENCY NOS 02/19/2017 COLTHARP DO MAYTE A Ot 707.19 ULCER OF OTHER PART OF LOWER LIMB 02/19/2017 [facility] APPR[facility]ISER Ot 553.1 UMBILICAL HERNIA 02/19/2017 [facility] APPR[facility]ISER Ot 562.10 DIVERTICULOSIS COLON (W/O MENT OF HEMORR 02/19/2017 YANA BYRNES DO Ot 625.8 FEM GENITAL SYMPTOMS NEC 02/19/2017 YANA BYRNES DO Ot 627.1 POSTMENOPAUSAL BLEEDING 02/19/2017 FABIÁN POSADA MD Ot 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 02/19/2017 FABIÁN POSADA MD Ot 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 ENDOMETRIUM 02/19/2017 TONYANNETTE DEXTER Ot 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 ENDOMETRIUM 02/19/2017 JIMENEZ ANNETTE Krueger DEXTER Ot E11.319 TYPE 2 DIABETES W [facility] DIABETIC RTNOP W/ 02/19/2017 JIMENEZANNETTE Krueger DEXTER Ot E66.01 MORBID (SEVERE) OBESITY DUE TO EXCESS CA 02/19/2017 JOHN JIMENEZNENA Krueger DEXTER Ot 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, [place]ED [place] 02/19/2017 ANNETTE JIMENEZ Ot I10 ESSENTIAL (PRIMARY) HYPERTENSION 02/19/2017 TONY JOHNNENA Krueger DEXTER Ot Z68.41 BODY MASS INDEX (BMI) 40.0-44.9, ADULT 02/19/2017 JOHN JIMENEZNENA Pati RENTERIA Ot Z79.4 SHELTER (CURRENT) USE OF INSULIN 02/19/2017 JOHN JIMENEZNENA Pati RENTERIA Ot Z79.899 OTHER SHELTER (CURRENT) DRUG THERAPY 02/19/2017 TELMA GRIER MD, Ot 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 ENDOMETRIUM 02/19/2017 TELMA GRIER MD Ot Z01.818 ENCOUNTER FOR OTHER PREPROCEDURAL EXAMIN 02/19/2017 KAREN MORALES DO Ot R60.0 LOCALIZED EDEMA 02/19/2017 FABIÁN POSADA MD Ot R06.02 SHORTNESS OF BREATH 02/19/2017 FABIÁN POSADA MD Ot 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 ENDOMETRIUM 02/19/2017 FABIÁN POSADA MD Ot 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 ENDOMETRIUM 02/19/2017 KAREN MORALES DO Ot R19.7 DIARRHEA, UNSPECIFIED 02/19/2017 KAREN MORALES DO Ot R30.0 DYSURIA 02/19/2017 FABIÁN POSADA MD Ot 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 ENDOMETRIUM 02/19/2017 FABIÁN POSADA MD Ot E11.319 TYPE 2 DIABETES W [facility] DIABETIC RTNOP W02/19/2017 FABIÁN POSADA MD Ot E66.01 MORBID (SEVERE) OBESITY DUE TO EXCESS CA 02/19/2017 FABIÁN POSADA MD Ot 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, [place]ED [place] 02/19/2017 FABIÁN POSADA MD Ot I10 ESSENTIAL (PRIMARY) HYPERTENSION 02/19/2017 FABIÁN POSADA MD, Ot R82.99 OTHER ABNORMAL FINDINGS IN URINE 02/19/2017 FABIÁN POSADA MD, Ot Z68.41 BODY MASS INDEX (BMI) 40.0-44.9, ADULT 02/19/2017 FABIÁN POSADA MD, Ot Z79.4 SHELTER (CURRENT) USE OF INSULIN 02/19/2017 FABIÁN POSADA MD, Ot Z79.899 OTHER SHELTER (CURRENT) DRUG THERAPY 02/19/2017 FABIÁN POSADA MD, [...] MELLITUS WITH DIABETIC N 02/21/2017 TELMA GRIER MD Ot E66.9 OBESITY, UNSPECIFIED 02/21/2017 TELMA GRIER [...] ADULT 02/21/2017 TELMA GRIER MD, Ot Z79.4 SANITATION SUPERINTENDENT (CURRENT) USE OF INSULIN 02/21/2017 TELMA GRIER [...] Ot K44.9 DIAPHRAGMATIC HERNIA WITHOUT OBSTRUCTION 02/21/2017 ETLMA GRIER MD, Ot L29.9 PRURITUS, UNSPECIFIED 02/21/2017 [...] BODY MASS INDEX (BMI) 36.0-36.9, ADULT 02/21/2017 KIDO MD, TAKAAKI Ot Z79.4 SANITATION SUPERINTENDENT (CURRENT) USE OF INSULIN 02/21/2017 TELMA GRIER [...] OF KIDNEY AND URETER, UNSPECIFI 02/25/2017 TELMA GREIR MD, Ot N32.81 OVERACTIVE BLADDER 02/25/2017 TELMA GRIER MD, Ot R07.9 CHEST PAIN, UNSPECIFIED 02/25/2017 TELMA GRIER MD, Ot R63.4 ABNORMAL WEIGHT LOSS 02/25/2017 TELMA GRIER MD, Ot Z68.36 BODY MASS INDEX (BMI) 36.0-36.9, ADULT 02/25/2017 TELMA GRIER MD, Ot Z79.4 SHELTER (CURRENT) USE OF INSULIN 02/25/2017 TELMA GRIER [...] BLINDNESS, [place]ED [place] 03/06/2017 FABIÁN POSADA MD Ot I10 ESSENTIAL (PRIMARY) HYPERTENSION 03/06/2017 FABIÁN POSADA MD, Ot R82.99 OTHER ABNORMAL FINDINGS IN URINE 03/06/2017 FABIÁN POSADA MD, Ot Z68.41 BODY MASS INDEX (BMI) 40.0-44.9, ADULT 03/06/2017 FABIÁN POSADA MD, Ot Z79.4 SHELTER (CURRENT) USE OF INSULIN 03/06/2017 FABIÁN POSADA MD, Ot Z79.899 OTHER SANITATION SUPERINTENDENT (CURRENT) DRUG THERAPY 03/25/2017 YANA HODGSON MD, Ot E11.622 TYPE 2 DIABETES MELLITUS WITH OTHER SKIN 03/25/2017 YANA HODGSON MD, Ot I87.333 CHRONIC VENOUS HTN W ULCER AND INFLAM OF 03/25/2017 YANA HODGSON MD, Ot L95.8 OTHER VASCULITIS LIMITED TO THE SKIN 03/25/2017 YANA HODGSON MD, Ot L97.211 NON-PRS CHRONIC ULCER OF RIGHT CALF LIMI 03/25/2017 AYNA HODGSON MD, Ot L98.491 NON-PRS CHRONIC ULCER [...] DUE TO EXCESS CA 04/12/2017 FABIÁN POSADA MD Ot 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, [place]ED [place] 04/12/2017 FABIÁN POSADA MD Ot I10 ESSENTIAL (PRIMARY) HYPERTENSION 04/12/2017 FABIÁN POSADA MD Ot R82.99 OTHER ABNORMAL FINDINGS IN URINE 04/12/2017 FABIÁN POSADA MD Ot Z68.41 BODY MASS INDEX (BMI) 40.0-44.9, ADULT 04/12/2017 FABIÁN POASDA MD Ot Z79.4 SHELTER (CURRENT) USE OF INSULIN 04/12/2017 FABIÁN POSADA MD, Ot Z79.899 OTHER SHELTER (CURRENT) DRUG THERAPY 04/13/2017 FABIÁN POSADA MD Ot Z12.31 ENCNTR SCREEN MAMMOGRAM FOR MALIGNANT NE 04/13/2017 COLTHARP DO, MAYTE A Ot 250.82 DIAB W OTH SPEC MANIFEST, TYPE II OR UNS 04/13/2017 COLTHARP DO, MAYTE A Ot 459.81 VENOUS INSUFFICIENCY NOS 04/13/2017 COLTHARP DO MAYTE A Ot 707.19 ULCER OF OTHER PART OF LOWER LIMB 04/13/2017 [facility] APPR[facility]ISER Ot 553.1 UMBILICAL HERNIA 04/13/2017 [facility] APPR[facility]ISER Ot 562.10 DIVERTICULOSIS COLON (W/O MENT OF HEMORR 04/13/2017 YANA BYRNES DO Ot 625.8 FEM GENITAL SYMPTOMS NEC 04/13/2017 YANA BYRNES DO Ot 627.1 POSTMENOPAUSAL BLEEDING 04/13/2017 FABIÁN POSADA MD Ot 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 04/13/2017 FABIÁN POSADA MD, Ot 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 ENDOMETRIUM 04/13/2017 ANNETTE JIMENEZ Ot 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 ENDOMETRIUM 04/13/2017 ANNETTE JIMENEZP Ot E11.319 TYPE 2 DIABETES W [facility] DIABETIC RTNOP W/ 04/13/2017 ANNETTE JIMENEZ Ot E66.01 MORBID (SEVERE) OBESITY DUE TO EXCESS CA 04/13/2017 ANNETTE JIMENEZ Ot 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, [place]FINED [place] 04/13/2017 ANNETTE JIMENEZ Ot I10 ESSENTIAL (PRIMARY) HYPERTENSION 04/13/2017 ANNETTE JIMENEZ Ot Z68.41 BODY MASS INDEX (BMI) 40.0-44.9, ADULT 04/13/2017 ANNETTE JIMENEZ Ot Z79.4 SANITATION SUPERINTENDENT (CURRENT) USE OF INSULIN 04/13/2017 ANNETTE JIMENEZ Ot Z79.899 OTHER SANITATION SUPERINTENDENT (CURRENT) DRUG THERAPY 04/13/2017 TELMA GRIER MD, Ot 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 ENDOMETRIUM 04/13/2017 TELMA GRIER MD Ot Z01.818 ENCOUNTER FOR OTHER PREPROCEDURAL EXAMIN 04/13/2017 KAREN MORALES DO Ot R60.0 LOCALIZED EDEMA 04/13/2017 FABIÁN POSADA MD Ot R06.02 SHORTNESS OF BREATH 04/13/2017 FABIÁN POSADA MD Ot 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 ENDOMETRIUM 04/13/2017 FABIÁN POSADA MD, Ot 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 ENDOMETRIUM 04/13/2017 KAREN MORALES DO Ot R19.7 DIARRHEA, UNSPECIFIED 04/13/2017 KAREN MORALES DO Ot R30.0 DYSURIA 04/13/2017 FABIÁN POSADA MD Ot 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 ENDOMETRIUM 04/13/2017 FABIÁN POSADA MD Ot K42.9 UMBILICAL HERNIA WITHOUT OBSTRUCTION OR 04/13/2017 FABIÁN POSADA MD, Ot Z12.31 ENCNTR SCREEN MAMMOGRAM FOR MALIGNANT NE 04/13/2017 FABIÁN POSADA MD, Ot Z12.31 ENCNTR SCREEN MAMMOGRAM FOR MALIGNANT NE 04/13/2017 SUHANII Ot 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 ENDOMETRIUM 04/13/2017 SUHA, NII Kaur Ot E11.319 TYPE 2 DIABETES W UNSP DIABETIC RTNOP W04/13/2017 SUHA, SELVINFERMIN Natasha Ot E66.01 MORBID (SEVERE) OBESITY DUE TO EXCESS CA 04/13/2017 NII BORDEN Ot 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, DEFINED IN [place] 04/13/2017 NII BORDEN Ot I10 ESSENTIAL (PRIMARY) HYPERTENSION 04/13/2017 SUHA, NII Kaur Ot R82.99 OTHER ABNORMAL FINDINGS IN URINE 04/13/2017 SUHA, NII Kaur Ot Z68.41 BODY MASS INDEX (BMI) 40.0-44.9, ADULT 04/13/2017 NII BORDEN Ot Z79.4 SANITATION SUPERINTENDENT (CURRENT) USE OF INSULIN 04/13/2017 NII BORDEN Ot Z79.899 OTHER SHELTER (CURRENT) DRUG THERAPY 04/13/2017 FABIÁN POSADA MD, Ot Z12.31 ENCNTR SCREEN MAMMOGRAM FOR MALIGNANT NE 04/13/2017 FABIÁN POSADA MD, Ot 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 ENDOMETRIUM 04/13/2017 FABIÁN POSADA MD Ot D50.0 IRON DEFICIENCY ANEMIA SECONDARY TO BLOO 04/13/2017 FABIÁN POSADA MD, Ot 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 04/13/2017 FABIÁN POSADA MD, Ot E11.319 TYPE 2 DIABETES W UNSP DIABETIC RTNOP W04/13/2017 FABIÁN POSADA MD, Ot E66.01 MORBID (SEVERE) OBESITY DUE TO EXCESS CA 04/13/2017 FABIÁN POSADA MD, Ot 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, [place]FINED [place] 04/13/2017 FABIÁN POSADA MD, Ot I10 ESSENTIAL (PRIMARY) HYPERTENSION 04/13/2017 FABIÁN POSADA MD Ot R82.99 OTHER ABNORMAL FINDINGS IN URINE 04/13/2017 FABIÁN POSADA MD Ot Z68.41 BODY MASS INDEX (BMI) 40.0-44.9, ADULT 04/13/2017 FABIÁN POSADA MD Ot Z79.4 SANITATION SUPERINTENDENT (CURRENT) USE OF INSULIN 04/13/2017 ALBINO FREY, FABIÁN Haines Ot Z79.899 OTHER SANITATION SUPERINTENDENT (CURRENT) DRUG THERAPY 04/15/2017 COLTHARP MAYTE Garibay Ot 250.82 DIAB W OTH SPEC MANIFEST, TYPE II OR UNS 04/15/2017 COLYI BAEZ MAYTE Garibay Ot 459.81 VENOUS INSUFFICIENCY NOS 04/15/2017 COLTAYLORARP DO MAYTE Garibay Ot 707.19 ULCER OF OTHER PART OF LOWER LIMB 04/15/2017 [facility] Ot 553.1 UMBILICAL HERNIA 04/15/2017 [facility] Ot 562.10 DIVERTICULOSIS COLON (W/O MENT OF HEMORR 04/15/2017 YANA BYRNES DO Ot 625.8 FEM GENITAL SYMPTOMS NEC 04/15/2017 YANA BYRNES DO Ot 627.1 POSTMENOPAUSAL BLEEDING 04/15/2017 FABIÁN POSADA MD Ot 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 04/15/2017 FABIÁN POSADA MD Ot 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 ENDOMETRIUM 04/15/2017 ANNETTE JIMENEZ Ot C54.1 MALIGNANT NEOPLASM OF ENDOMETRIUM 04/15/2017 ANNETTE JIMENEZP Ot E11.319 TYPE 2 DIABETES W UNSP DIABETIC RTNOP W/ 04/15/2017 ANNETTE JIMENEZ Ot E66.01 MORBID (SEVERE) OBESITY DUE TO EXCESS CA 04/15/2017 ANNETTE JIMENEZP Ot 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, [place]FINED [place] 04/15/2017 ANNETTE JIMENEZ Ot I10 ESSENTIAL (PRIMARY) HYPERTENSION 04/15/2017 ANNETTE JIMENEZP Ot Z68.41 BODY MASS INDEX (BMI) 40.0-44.9, ADULT 04/15/2017 ANNETTE JIMENEZ Ot Z79.4 SANITATION SUPERINTENDENT (CURRENT) USE OF INSULIN 04/15/2017 ANNETTE JIMENEZ Ot Z79.899 OTHER SANITATION SUPERINTENDENT (CURRENT) DRUG THERAPY 04/15/2017 TELMA GRIER MD Ot C54.1 MALIGNANT NEOPLASM OF ENDOMETRIUM 04/15/2017 TELMA GRIER MD Ot Z01.818 ENCOUNTER FOR [...] OF ENDOMETRIUM 04/15/2017 FABIÁN POSADA MD, Ot K42.9 UMBILICAL HERNIA WITHOUT OBSTRUCTION OR 04/15/2017 FABIÁN POSADA MD, Ot Z12.31 ENCNTR SCREEN MAMMOGRAM FOR MALIGNANT NE 04/15/2017 FABIÁN POSADA MD, Ot Z12.31 ENCNTR SCREEN [...] ABNORMAL FINDINGS IN URINE 04/15/2017 NII BORDEN Ot Z68.41 BODY MASS INDEX (BMI) 40.0-44.9, ADULT 04/15/2017 NII BORDEN Ot Z79.4 SANITATION SUPERINTENDENT (CURRENT) USE OF INSULIN 04/15/2017 NII BORDEN Ot Z79.899 OTHER SHELTER (CURRENT) DRUG THERAPY 04/16/2017 FABIÁN POSADA MD Ot J84.10 PULMONARY FIBROSIS, UNSPECIFIED 04/16/2017 FABIÁN POSADA MD, Ot K44.9 DIAPHRAGMATIC HERNIA WITHOUT OBSTRUCTION 04/16/2017 FABIÁN POSADA MD Ot R63.4 ABNORMAL WEIGHT LOSS 04/16/2017 FABIÁN POSADA MD Ot Z12.31 ENCNTR SCREEN MAMMOGRAM FOR MALIGNANT NE 04/17/2017 NII BORDEN Ot C54.1 MALIGNANT NEOPLASM OF ENDOMETRIUM 04/17/2017 NII BORDEN Ot E11.319 TYPE 2 DIABETES W UNSP DIABETIC RTNOP W/ 04/17/2017 NII BORDEN Ot E66.01 MORBID (SEVERE) OBESITY DUE TO EXCESS CA 04/17/2017 NII BORDEN Ot 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, DEFINED IN [place] 04/17/2017 NII BORDEN Ot I10 ESSENTIAL (PRIMARY) HYPERTENSION 04/17/2017 NII BORDEN Ot R82.99 OTHER ABNORMAL FINDINGS IN URINE 04/17/2017 NII BORDEN Ot Z68.41 BODY MASS INDEX (BMI) 40.0-44.9, ADULT 04/17/2017 NII BORDEN Ot Z79.4 SANITATION SUPERINTENDENT (CURRENT) USE OF INSULIN 04/17/2017 NII BORDEN Ot Z79.899 OTHER SANITATION SUPERINTENDENT (CURRENT) DRUG THERAPY 04/20/2017 FABIÁN POSADA MD [...] MD Ot R63.4 ABNORMAL WEIGHT LOSS 04/20/2017 ALBINO FREY, FABIÁN Haines Ot Z12.31 ENCNTR SCREEN MAMMOGRAM FOR MALIGNANT NE 04/21/2017 TELMA GRIER MD Ot R19.5 OTHER FECAL ABNORMALITIES 04/21/2017 TELMA GRIER MD Ot Z01.818 ENCOUNTER FOR OTHER PREPROCEDURAL EXAMIN 04/21/2017 TELMA GRIER MD Ot R19.5 OTHER FECAL ABNORMALITIES 04/21/2017 TELMA GRIER MD Ot Z01.818 ENCOUNTER FOR OTHER PREPROCEDURAL EXAMIN 04/21/2017 FABIÁN POSADA MD Ot Z12.31 ENCNTR SCREEN MAMMOGRAM FOR MALIGNANT NE 04/21/2017 TELMA GRIER MD, Ot D64.9 ANEMIA, UNSPECIFIED 04/21/2017 TELMA GRIER MD Ot R19.5 OTHER FECAL ABNORMALITIES 04/21/2017 TELMA GRIER MD, Ot Z01.818 ENCOUNTER FOR OTHER PREPROCEDURAL EXAMIN 04/22/2017 TELMA GRIER MD Ot E11.40 TYPE 2 DIABETES MELLITUS WITH DIABETIC N 04/22/2017 TELMA GRIER MD Ot I10 ESSENTIAL (PRIMARY) HYPERTENSION 04/22/2017 TELMA GRIER MD Ot K57.30 DVRTCLOS OF LG INT W/O PERFORATION OR AB 04/22/2017 TELMA GRIER MD Ot K63.5 POLYP OF COLON 04/22/2017 TELMA GRIER MD Ot 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 04/22/2017 TELMA GRIER MD Ot Z79.899 OTHER SANITATION SUPERINTENDENT (CURRENT) DRUG THERAPY 04/22/2017 TELMA GRIER MD Ot Z85.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 OF FE 04/22/2017 TELMA GRIER MD, Ot Z92.3 PERSONAL HISTORY OF IRRADIATION 04/28/2017 TELMA GRIER MD Ot E11.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 2 DIABETES MELLITUS WITH DIABETIC N 04/28/2017 TELMA GRIER MD Ot I10 ESSENTIAL (PRIMARY) HYPERTENSION 04/28/2017 TELMA GRIER MD Ot K57.30 DVRTCLOS OF LG INT W/O PERFORATION OR AB 04/28/2017 TELMA GRIER MD, Ot K63.5 POLYP OF COLON 04/28/2017 TELMA GRIER MD, Ot 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 04/28/2017 TELMA GRIER MD, Ot Z79.899 OTHER SANITATION SUPERINTENDENT (CURRENT) DRUG THERAPY 04/28/2017 TELMA GRIER MD, Ot Z85.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 OF FE 04/28/2017 TELMA GREIR MD, Ot Z92.3 PERSONAL HISTORY OF IRRADIATION 05/07/2017 SANDRA FREY, LEILA Ot R92.8 OTH ABN AND INCONCLUSIVE FINDINGS ON DX 05/08/2017 ANNETTE JIMNEEZ Ot R92.8 OTH ABN AND INCONCLUSIVE FINDINGS ON DX 05/09/2017 ALBINO FREY, FABIÁN Haines Ot J84.10 PULMONARY FIBROSIS, UNSPECIFIED 05/09/2017 ALBINO FREY, FABIÁN Haines Ot K44.9 DIAPHRAGMATIC HERNIA WITHOUT OBSTRUCTION 05/09/2017 FABIÁN POSADA MD Ot R63.4 ABNORMAL WEIGHT LOSS 05/09/2017 FABIÁN POSADA MD Ot Z12.31 ENCNTR SCREEN MAMMOGRAM FOR MALIGNANT NE 05/11/2017 [facility] Ot R92.8 OTH ABN AND INCONCLUSIVE FINDINGS ON DX 05/14/2017 [facility] Ot C50.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 05/14/2017 [facility] Ot 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 05/15/2017 [facility]PR[facility] Ot 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 05/15/2017 [facility] Ot N63 UNSPECIFIED LUMP IN BREAST 05/20/2017 [facility] Ot N63 UNSPECIFIED LUMP IN BREAST 05/20/2017 [employer] [employer] Ot K57.30 DVRTCLOS OF LG INT W/O PERFORATION OR AB 05/20/2017 [facility] Ot K63.89 OTHER SPECIFIED DISEASES OF INTESTINE 05/20/2017 [facility] [facility] Ot Z85.42 PERSONAL HISTORY OF MALIGNANT NEOPLASM O 05/20/2017 [facility] Ot Z90.49 ACQUIRED ABSENCE OF OTHER SPECIFIED PART 05/20/2017 [facility] Ot Z90.710 ACQUIRED ABSENCE OF BOTH CERVIX AND UTER 05/25/2017 [facility]PR[facility] Ot C50.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 05/25/2017 [facility] Ot K63.9 DISEASE OF INTESTINE, UNSPECIFIED 05/29/2017 SANDRA FREY, LEILA Ot R92.8 OTH ABN AND INCONCLUSIVE FINDINGS ON DX 06/05/2017 [facility] Ot N63 UNSPECIFIED LUMP IN BREAST 06/10/2017 [facility] Ot C50.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 06/10/2017 [facility] Ot K63.9 DISEASE OF INTESTINE, UNSPECIFIED 06/13/2017 NII BORDEN Natasha Ot C54.1 MALIGNANT NEOPLASM OF ENDOMETRIUM 06/13/2017 SUHA NII Kaur Ot E11.319 TYPE 2 DIABETES W UNSP DIABETIC RTNOP W06/13/2017 SUHANII ORTEZ N Ot E66.01 MORBID (SEVERE) OBESITY DUE TO EXCESS CA 06/13/2017 SUHA, NII N Ot 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, [place]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 [place] 06/13/2017 NII BORDEN N Ot I10 ESSENTIAL (PRIMARY) HYPERTENSION 06/13/2017 NII BORDEN N Ot N63 UNSPECIFIED LUMP IN BREAST 06/13/2017 SELVIN BORDENFERMIN Kaur Ot R82.99 OTHER ABNORMAL FINDINGS IN URINE 06/13/2017 NII BORDEN N Ot Z68.41 BODY MASS INDEX (BMI) 40.0-44.9, ADULT 06/13/2017 SUHASELVIN ORTEZFERMIN Kaur Ot Z79.4 SHELTER (CURRENT) USE OF INSULIN 06/13/2017 NII BORDEN N Ot Z79.899 OTHER SANITATION SUPERINTENDENT (CURRENT) DRUG THERAPY 06/18/2017 SUHA NII N Ot C54.1 MALIGNANT NEOPLASM OF ENDOMETRIUM 06/18/2017 NII BORDEN N Ot E11.319 TYPE 2 DIABETES W UNSP DIABETIC RTNOP W06/18/2017 NII BORDEN N Ot E66.01 MORBID (SEVERE) OBESITY DUE TO EXCESS CA 06/18/2017 SUHA NII N Ot 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, [place]FINED [place] 06/18/2017 NII BORDEN N Ot I10 ESSENTIAL (PRIMARY) HYPERTENSION 06/18/2017 NII BORDEN Ot N63 UNSPECIFIED LUMP IN BREAST 06/18/2017 NII BORDEN Ot R82.99 OTHER ABNORMAL FINDINGS IN URINE 06/18/2017 NII BORDEN Ot Z68.41 BODY MASS INDEX (BMI) 40.0-44.9, ADULT 06/18/2017 NII BORDEN Ot Z79.4 SHELTER (CURRENT) USE OF INSULIN 06/18/2017 NII BORDEN Ot Z79.899 OTHER SHELTER (CURRENT) DRUG THERAPY 06/26/2017 KAREN MORALES DO J Ot R13.10 DYSPHAGIA, UNSPECIFIED 06/26/2017 MORALES DO, KAREN J Ot R13.10 DYSPHAGIA, UNSPECIFIED 06/26/2017 KAREN MORALES DO Ot R13.10 DYSPHAGIA, UNSPECIFIED 06/29/2017 KAREN MORALES DO Ot R13.10 DYSPHAGIA, UNSPECIFIED 06/29/2017 KAREN MORALES DO Ot R13.10 DYSPHAGIA, UNSPECIFIED 06/29/2017 KAREN MORALES DO Ot R13.10 DYSPHAGIA, UNSPECIFIED 06/29/2017 MORALES DO, KAREN Johnson Ot R13.10 DYSPHAGIA, UNSPECIFIED 06/29/2017 CARMEN BAEZ, KAREN Johnson Ot R13.14 DYSPHAGIA, PHARYNGOESOPHAGEAL PHASE 06/29/2017 MAYTE COUCH DO Ot 250.82 DIAB W OTH SPEC MANIFEST, TYPE II OR UNS 06/29/2017 MAYTE COUCH DO Ot 459.81 VENOUS INSUFFICIENCY NOS 06/29/2017 MAYTE COUCH DO Ot 707.19 ULCER OF OTHER PART OF LOWER LIMB 06/29/2017 [facility] Ot 553.1 UMBILICAL HERNIA 06/29/2017 [facility] Ot 562.10 DIVERTICULOSIS COLON (W/O MENT OF HEMORR 06/29/2017 YANA BYRNES DO Ot 625.8 FEM GENITAL SYMPTOMS NEC 06/29/2017 YANA BYRNES DO Ot 627.1 POSTMENOPAUSAL BLEEDING 06/29/2017 ALBINO FREY, FABIÁN Haines Ot 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 06/29/2017 ALBINO FREY, FABIÁN Haines Ot C54.1 MALIGNANT NEOPLASM OF ENDOMETRIUM 06/29/2017 [facility] Ot C54.1 MALIGNANT NEOPLASM OF ENDOMETRIUM 06/29/2017 [facility] Ot E11.319 TYPE 2 DIABETES W UNSP DIABETIC RTNOP W/ 06/29/2017 [facility] Ot E66.01 MORBID (SEVERE) OBESITY DUE TO EXCESS CA 06/29/2017 [facility] Ot 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, [place]FINED [place] 06/29/2017 [facility] Ot I10 ESSENTIAL (PRIMARY) HYPERTENSION 06/29/2017 [facility] Ot Z68.41 BODY MASS INDEX (BMI) 40.0-44.9, ADULT 06/29/2017 [facility] Ot Z79.4 SANITATION SUPERINTENDENT (CURRENT) USE OF INSULIN 06/29/2017 [facility] JIMENEZ[facility] Ot Z79.899 OTHER SHELTER (CURRENT) DRUG THERAPY 06/29/2017 TELMA GRIER MD, Ot C54.1 MALIGNANT NEOPLASM OF ENDOMETRIUM 06/29/2017 TELMA GRIER MD Ot Z01.818 ENCOUNTER FOR OTHER PREPROCEDURAL EXAMIN 06/29/2017 KAREN MORALES DO Ot R60.0 LOCALIZED EDEMA 06/29/2017 FABIÁN POSADA MD Ot R06.02 SHORTNESS OF BREATH 06/29/2017 FABIÁN POSADA MD, Ot C54.1 MALIGNANT NEOPLASM OF ENDOMETRIUM 06/29/2017 FABIÁN POSADA MD, Ot C54.1 MALIGNANT NEOPLASM OF ENDOMETRIUM 06/29/2017 [...] ENCNTR SCREEN MAMMOGRAM FOR MALIGNANT NE 06/29/2017 ALBINO MD, FABIÁN K Ot Z12.31 ENCNTR SCREEN MAMMOGRAM FOR MALIGNANT NE 06/29/2017 [employer] [employer] Ot K57.30 DVRTCLOS OF LG INT W/O PERFORATION OR AB 06/29/2017 CHEKOCRISTYIN L [employer] Ot K63.89 OTHER SPECIFIED DISEASES OF INTESTINE 06/29/2017 CHEKOCRISTYIN L [employer] Ot Z85.42 PERSONAL HISTORY OF MALIGNANT NEOPLASM O 06/29/2017 CHEKOCRISTYIN L [employer] Ot Z90.49 ACQUIRED ABSENCE OF OTHER SPECIFIED PART 06/29/2017 CHEKOCRISTYIN L [employer] Ot Z90.710 ACQUIRED ABSENCE OF BOTH CERVIX AND UTER 06/29/2017 SANDRA FREY, LEILA Ot R92.8 OTH ABN AND INCONCLUSIVE FINDINGS ON DX 06/29/2017 [facility] Ot N63 UNSPECIFIED LUMP IN BREAST 06/29/2017 [facility] Ot C50.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 06/29/2017 [facility] Ot K63.9 DISEASE OF INTESTINE, UNSPECIFIED 06/29/2017 [facility] Ot 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 06/29/2017 [facility] Ot C54.1 MALIGNANT NEOPLASM OF ENDOMETRIUM 06/29/2017 [facility] Ot Z78.0 ASYMPTOMATIC MENOPAUSAL STATE 06/29/2017 NII BORDEN Ot C54.1 MALIGNANT NEOPLASM OF ENDOMETRIUM 06/29/2017 NII BORDEN Ot E11.319 TYPE 2 DIABETES W UNSP DIABETIC RTNOP W/ 06/29/2017 NII BORDEN Ot E66.01 MORBID (SEVERE) OBESITY DUE TO EXCESS CA 06/29/2017 NII BORDEN Ot 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, [place]FINED [place] 06/29/2017 NII BORDEN Ot I10 ESSENTIAL (PRIMARY) HYPERTENSION 06/29/2017 NII BORDEN Ot N63 UNSPECIFIED LUMP IN BREAST * DO NOT USE 06/29/2017 NII BORDEN Ot R82.99 OTHER ABNORMAL FINDINGS IN URINE 06/29/2017 NII BORDEN Ot Z68.41 BODY MASS INDEX (BMI) 40.0-44.9, ADULT 06/29/2017 INI BORDEN Natasha Ot Z79.4 SANITATION SUPERINTENDENT (CURRENT) USE OF INSULIN 06/29/2017 SUHA NII Kaur Ot Z79.899 OTHER SHELTER (CURRENT) DRUG THERAPY 06/29/2017 KAREN MORALES DO Ot R13.14 DYSPHAGIA, PHARYNGOESOPHAGEAL PHASE 07/16/2017 [facility] Ot 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 07/16/2017 [facility] Ot C54.1 MALIGNANT NEOPLASM OF ENDOMETRIUM 07/16/2017 [facility]NETTE JIMENEZP Ot Z78.0 ASYMPTOMATIC MENOPAUSAL STATE 07/27/2017 KAREN MORALES DO Ot R13.14 DYSPHAGIA, PHARYNGOESOPHAGEAL PHASE 08/07/2017 NII BORDEN Ot 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 08/07/2017 NII BORDEN Ot C54.1 MALIGNANT NEOPLASM OF ENDOMETRIUM 08/07/2017 NII BORDEN Ot E11.319 TYPE 2 DIABETES W UNSP DIABETIC RTNOP W/ 08/07/2017 SUHANII N Ot E11.40 TYPE 2 DIABETES MELLITUS WITH DIABETIC N 08/07/2017 SUHA, NII N Ot E66.9 OBESITY, UNSPECIFIED 08/07/2017 SUHANII Ot I10 ESSENTIAL (PRIMARY) HYPERTENSION 08/20/2017 NII BORDEN Ot 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 08/20/2017 SUHANII Ot C54.1 MALIGNANT NEOPLASM OF ENDOMETRIUM 08/20/2017 NII BORDEN Ot E11.319 TYPE 2 DIABETES W UNSP DIABETIC RTNOP W/ 08/20/2017 SUHANII N Ot E11.40 TYPE 2 DIABETES MELLITUS WITH DIABETIC N 08/20/2017 NII BORDEN N Ot E66.9 OBESITY, UNSPECIFIED 08/20/2017 NII BORDEN Ot I10 ESSENTIAL (PRIMARY) HYPERTENSION 08/24/2017 RICHMOND PADILLA MD Ot 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 08/24/2017 RICHMOND PADILLA MD Ot C54.1 MALIGNANT NEOPLASM OF ENDOMETRIUM 08/24/2017 RICHMOND PADILLA MD Ot E11.319 TYPE 2 DIABETES W UNSP DIABETIC RTNOP W/ 08/24/2017 RICHMOND PADILLA MD Ot E11.40 TYPE 2 DIABETES MELLITUS WITH DIABETIC N 08/24/2017 RICHMOND PADILLA MD Ot E66.9 OBESITY, UNSPECIFIED 08/24/2017 RICHMOND PADILLA MD Ot I10 ESSENTIAL (PRIMARY) HYPERTENSION 08/24/2017 RICHMOND PADILLA MD Ot K63.9 DISEASE OF INTESTINE, UNSPECIFIED 08/24/2017 RICHMOND PADILLA MD Ot R53.81 OTHER MALAISE 08/24/2017 RICHMOND PADILLA MD Ot Z17.0 ESTROGEN RECEPTOR [...] MALIGNANT NEOPLASM OF ENDOMETRIUM 10/06/2017 RICHMOND PADILLA MD Ot E11.319 TYPE 2 DIABETES W UNSP DIABETIC RTNOP W/ 10/06/2017 RICHMOND PADILLA MD Ot E11.40 TYPE 2 DIABETES MELLITUS WITH DIABETIC N 10/06/2017 RICHMOND PADILLA MD Ot E66.9 OBESITY, UNSPECIFIED 10/06/2017 RICHMOND PADILLA MD Ot I10 ESSENTIAL (PRIMARY) HYPERTENSION 10/06/2017 RICHMOND PADILLA MD Ot K63.9 DISEASE OF INTESTINE, UNSPECIFIED 10/06/2017 RICHMOND PADILLA MD Ot R53.81 OTHER MALAISE 10/06/2017 RICHMOND PADILLA MD Ot 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+] 10/06/2017 RICHMOND PADILLA MD Ot Z68.33 BODY MASS INDEX (BMI) 33.0-33.9, ADULT 10/06/2017 RICHMOND PADILLA MD Ot Z79.4 SHELTER (CURRENT) USE OF INSULIN 10/06/2017 RICHMOND PADILLA MD Ot Z79.899 OTHER SHELTER (CURRENT) DRUG THERAPY 10/06/2017 RICHMOND PADILLA MD Ot Z90.710 ACQUIRED ABSENCE OF BOTH CERVIX AND UTER 10/07/2017 JOSE ARMANDO FREY FACC, ALI FACP CCDS Ot 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 10/07/2017 JOSE ARMANDO CHENC, ALI FACP CCDS Ot C54.1 MALIGNANT NEOPLASM OF ENDOMETRIUM 10/07/2017 JOSE ARMANDO FREY FACC, ALI FACP CCDS Ot E11.9 TYPE 2 DIABETES MELLITUS WITHOUT COMPLIC 10/07/2017 JOSE ARMANDO CHENC, ALI FACP CCDS Ot 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, [place]FINED [place] 10/07/2017 JOSE ARMANDO CHENC, ALI FACP CCDS Ot R06.02 SHORTNESS OF BREATH 10/07/2017 JOSE ARMANDO CHENC, ALI FACP CCDS Ot R94.31 ABNORMAL ELECTROCARDIOGRAM [ECG] [EKG] 10/08/2017 JOSE ARMANDO CHENC, ALI FACP CCDS Ot 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 10/08/2017 JOSE ARMANDO CHENC, ALI FACP CCDS Ot C54.1 MALIGNANT NEOPLASM OF ENDOMETRIUM 10/08/2017 JOSE ARAMNDO FREY FACC, ALI FACP CCDS Ot E11.9 TYPE 2 DIABETES MELLITUS WITHOUT COMPLIC 10/08/2017 JOSE ARMANDO CHENC, ALI FACP CCDS Ot 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, [place]FINED [place] 10/08/2017 JOSE ARMANDO CHENC, ALI FACP CCDS Ot R06.02 SHORTNESS OF BREATH 10/08/2017 JOSE ARMANDO FREY FACC, ALI FACP CCDS Ot R94.31 ABNORMAL ELECTROCARDIOGRAM [ECG] [EKG] 10/12/2017 RICHMOND PADILLA MD Ot 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 10/28/2017 JOSE ARMANDO CHENC, ALI FACP CCDS Ot 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 10/28/2017 JOSE ARMANDO CHENC, ALI FACP CCDS Ot C54.1 MALIGNANT NEOPLASM OF ENDOMETRIUM 10/28/2017 JOSE ARMANDO MD FACC, ALI FACP CCDS Ot E11.9 TYPE 2 DIABETES MELLITUS WITHOUT COMPLIC 10/28/2017 JOSE ARMANDO MD FACC, ALI FACP CCDS Ot 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, [place]FINED [place] 10/28/2017 JOSE ARMANDO FREY FACC, ALI FACP CCDS Ot R06.02 SHORTNESS OF BREATH 10/28/2017 JOSE ARMANDO FACC, ALI FACP CCDS Ot R94.31 ABNORMAL [...] ABNORMAL ELECTROCARDIOGRAM [ECG] [EKG] 11/19/2017 RICHMOND PADILLA MD, Ot 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 11/19/2017 RICHMOND PADILLA MD, Ot C54.1 MALIGNANT NEOPLASM OF ENDOMETRIUM 11/19/2017 RICHMOND PADILLA MD, Ot E11.319 TYPE 2 DIABETES W UNSP DIABETIC RTNOP W/ 11/19/2017 RICHMOND PADILLA MD, Ot E11.40 TYPE 2 DIABETES MELLITUS WITH DIABETIC N 11/19/2017 RICHMOND PADILLA MD, Ot E66.9 OBESITY, UNSPECIFIED 11/19/2017 RICHMOND PADILLA MD, Ot I10 ESSENTIAL (PRIMARY) HYPERTENSION 11/19/2017 RICHMOND PADILLA MD, Ot K63.9 DISEASE OF INTESTINE, UNSPECIFIED 11/19/2017 RICHMOND PADILLA MD, Ot R53.81 OTHER MALAISE 11/19/2017 RICHMOND PADILLA MD, Ot R82.99 OTHER ABNORMAL FINDINGS IN URINE 11/19/2017 RICHMOND PADILLA MD, Ot 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+] 11/19/2017 RICHMOND PADILLA MD, Ot Z45.2 ENCOUNTER FOR ADJUSTMENT AND MANAGEMENT 11/19/2017 RICHMOND PADILLA MD Ot Z68.33 BODY MASS INDEX (BMI) 33.0-33.9, ADULT 11/19/2017 RICHMOND PADILLA MD Ot Z79.4 SANITATION SUPERINTENDENT (CURRENT) USE OF INSULIN 11/19/2017 RICHMOND PADILLA [...] W UNSP DIABETIC RTNOP W/ 11/20/2017 RICHMOND PADILLA MD, Ot E11.40 TYPE 2 [...] FOR ADJUSTMENT AND MANAGEMENT 11/20/2017 RICHMOND PADILLA MD, Ot Z68.33 BODY MASS INDEX (BMI) 33.0-33.9, ADULT 11/20/2017 RICHMOND PADILLA MD Ot Z79.4 SHELTER (CURRENT) USE OF INSULIN 11/20/2017 RICHMOND PADILLA MD Ot Z79.899 OTHER SANITATION SUPERINTENDENT (CURRENT) DRUG THERAPY 11/20/2017 RICHMOND PADILLA MD Ot Z90.710 ACQUIRED ABSENCE OF BOTH CERVIX AND UTER 11/24/2017 TELMA GRIER MD Ot Z01.818 ENCOUNTER FOR OTHER PREPROCEDURAL EXAMIN 11/24/2017 TELMA GRIER MD Ot Z12.11 ENCOUNTER FOR SCREENING FOR MALIGNANT NE 11/25/2017 TELMA GRIER MD Ot Z01.818 ENCOUNTER FOR [...] I10 ESSENTIAL (PRIMARY) HYPERTENSION 11/27/2017 TELMA GRIER MD, Ot K57.30 DVRTCLOS OF LG INT W/O PERFORATION OR AB 11/27/2017 TELMA GRIER MD, Ot 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 11/27/2017 TELMA GRIER MD, Ot 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+] 11/27/2017 TELMA GRIER MD, Ot Z79.4 SHELTER (CURRENT) USE OF INSULIN 11/27/2017 TELMA GRIER MD Ot Z79.899 OTHER SHELTER (CURRENT) DRUG THERAPY 11/27/2017 TELMA GRIER MD, Ot Z87.19 PERSONAL HISTORY OF OTHER DISEASES OF TH 11/27/2017 TELMA GRIER MD, Ot Z90.710 ACQUIRED ABSENCE OF BOTH CERVIX AND UTER 11/30/2017 TELMA GRIER MD, Ot 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 11/30/2017 TELMA GRIER MD, Ot C54.1 MALIGNANT NEOPLASM OF ENDOMETRIUM 11/30/2017 TELMA GRIER MD, Ot E11.40 TYPE 2 DIABETES MELLITUS WITH DIABETIC N 11/30/2017 TELMA GRIER MD Ot I10 ESSENTIAL (PRIMARY) HYPERTENSION 11/30/2017 TELMA GRIER MD, Ot K57.30 DVRTCLOS OF LG INT W/O PERFORATION OR AB 11/30/2017 TELMA GRIER MD, Ot 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 11/30/2017 TELMA GRIER MD, Ot 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+] 11/30/2017 TELMA GRIER MD, Ot Z79.4 SANITATION SUPERINTENDENT (CURRENT) USE OF INSULIN 11/30/2017 TELMA GRIER MD, Ot Z79.899 OTHER SANITATION SUPERINTENDENT (CURRENT) DRUG THERAPY 11/30/2017 TELMA GRIER MD, Ot Z87.19 PERSONAL HISTORY OF OTHER DISEASES OF TH 11/30/2017 TELMA GRIER MD, Ot Z90.710 ACQUIRED ABSENCE OF BOTH CERVIX AND UTER 12/09/2017 RICHMOND PADILLA MD Ot 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 12/09/2017 RICHMOND PADILLA MD Ot C54.1 MALIGNANT NEOPLASM OF ENDOMETRIUM 12/09/2017 RICHMOND PADILLA MD Ot E11.319 TYPE 2 DIABETES W UNSP DIABETIC RTNOP W/ 12/09/2017 RICHMOND PADILLA MD Ot E11.40 TYPE 2 DIABETES MELLITUS WITH DIABETIC N 12/09/2017 RICHMOND PADILLA MD Ot E66.9 OBESITY, UNSPECIFIED 12/09/2017 RICHMOND PADILLA MD Ot I10 ESSENTIAL (PRIMARY) HYPERTENSION 12/09/2017 RICHMOND PADILLA MD Ot K63.9 DISEASE OF INTESTINE, UNSPECIFIED 12/09/2017 RICHMOND PADILLA MD Ot R53.81 OTHER MALAISE 12/09/2017 RICHMOND PADILLA MD Ot 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+] 12/09/2017 RICHMOND PADILLA MD Ot Z68.33 BODY MASS INDEX (BMI) 33.0-33.9, ADULT 12/09/2017 RICHMOND PADILLA MD Ot Z79.4 SHELTER (CURRENT) USE OF INSULIN 12/09/2017 RICHMOND PADILLA MD Ot Z79.899 OTHER SANITATION SUPERINTENDENT (CURRENT) DRUG THERAPY 12/09/2017 RICHMOND PADILLA MD Ot Z90.710 ACQUIRED ABSENCE OF BOTH CERVIX AND UTER 12/11/2017 RICHMOND PADILLA MD Ot 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 12/11/2017 RICHMOND PADILLA MD Ot C54.1 MALIGNANT NEOPLASM OF ENDOMETRIUM 12/11/2017 RICHMOND PADILLA MD Ot E11.319 TYPE 2 DIABETES W UNSP DIABETIC RTNOP W/ 12/11/2017 RICHMOND PADILLA MD Ot E11.40 TYPE 2 DIABETES MELLITUS WITH DIABETIC N 12/11/2017 RICHMOND PADILLA MD Ot E66.9 OBESITY, UNSPECIFIED 12/11/2017 RICHMOND PADILLA MD Ot I10 ESSENTIAL (PRIMARY) HYPERTENSION 12/11/2017 RICHMOND PADILLA MD Ot K63.9 DISEASE OF INTESTINE, UNSPECIFIED 12/11/2017 RICHMOND PADILLA MD, Ot R53.81 OTHER MALAISE 12/11/2017 RICHMOND PADILLA MD, Ot 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+] 12/11/2017 RICHMOND PADILLA MD, Ot Z68.33 BODY MASS INDEX (BMI) 33.0-33.9, ADULT 12/11/2017 RICHMOND PADILLA MD, Ot Z79.4 SANITATION SUPERINTENDENT (CURRENT) USE OF INSULIN 12/11/2017 RICHMOND PADILLA MD, Ot Z79.899 OTHER SANITATION SUPERINTENDENT (CURRENT) DRUG THERAPY 12/11/2017 RICHMOND PADILLA MD, [...] [ER+] 12/15/2017 TELMA GRIER MD, Ot Z79.4 SANITATION SUPERINTENDENT (CURRENT) USE OF INSULIN 12/15/2017 TELMA GRIER MD, Ot Z79.899 OTHER SANITATION SUPERINTENDENT (CURRENT) DRUG THERAPY 12/15/2017 TELMA GRIER MD, [...] ULCER SKIN/ SITES LIMITE 01/06/2018 RICHMOND PADILLA MD, Ot 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 01/06/2018 IRCHMOND PADILLA MD, Ot C54.1 MALIGNANT NEOPLASM OF ENDOMETRIUM 01/06/2018 RICHMOND PADILLA MD, Ot E11.319 TYPE 2 DIABETES W UNSP DIABETIC RTNOP W/ 01/06/2018 RICHMOND PADILLA MD, Ot E11.40 TYPE 2 DIABETES MELLITUS WITH DIABETIC N 01/06/2018 RICHMOND PADILLA MD, Ot E66.9 OBESITY, UNSPECIFIED 01/06/2018 RICHMOND PADILLA MD Ot I10 ESSENTIAL (PRIMARY) HYPERTENSION 01/06/2018 RICHMOND PADILLA MD, Ot K63.9 DISEASE OF INTESTINE, UNSPECIFIED 01/06/2018 RICHMOND PADILLA MD, Ot R53.81 OTHER MALAISE 01/06/2018 RICHMOND PADILLA MD, Ot 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+] 01/06/2018 RICHMOND PADILLA MD, Ot Z68.33 BODY MASS INDEX (BMI) 33.0-33.9, ADULT 01/06/2018 RICHMOND PADILLA MD, Ot Z79.4 SHELTER (CURRENT) USE OF INSULIN 01/06/2018 RICHMOND PADILLA MD, Ot Z79.899 OTHER SHELTER (CURRENT) DRUG THERAPY 01/06/2018 RICHMOND PADILLA MD, Ot Z90.710 ACQUIRED ABSENCE [...] TO THE SKIN, UNSPECIF 01/26/2018 YANA HODGSON MD, Ot L97.211 NON-PRS CHRONIC ULCER OF RIGHT CALF LIMI 01/26/2018 YANA HODGSON MD, Ot L97.221 NON-PRS CHRONIC ULCER OF LEFT CALF LIMIT 01/26/2018 YANA HODGSON MD, Ot L98.491 NON-PRS CHRONIC ULCER SKIN/ SITES LIMITE 02/10/2018 YANA HODGSON MD, Ot L95.9 VASCULITIS LIMITED TO THE SKIN, UNSPECIF 02/10/2018 YANA HODGSON MD, Ot L97.211 NON-PRS CHRONIC ULCER OF RIGHT CALF LIMI 02/10/2018 YANA HODGSON MD, Ot L97.221 NON-PRS CHRONIC ULCER OF LEFT CALF LIMIT 02/10/2018 YANA HODGSON MD, Ot L98.491 NON-PRS CHRONIC ULCER SKIN/ SITES LIMITE 02/18/2018 RICHMOND PADILLA MD, Ot 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 02/18/2018 RICHMOND PADILLA MD, Ot C54.1 MALIGNANT NEOPLASM OF ENDOMETRIUM 02/18/2018 RICHMOND PADILLA MD, Ot E11.319 TYPE 2 DIABETES W UNSP DIABETIC RTNOP W/ 02/18/2018 RICHMOND PADILLA MD, Ot E11.40 TYPE 2 DIABETES MELLITUS WITH DIABETIC N 02/18/2018 RICHMOND PADILLA MD, Ot E66.9 OBESITY, UNSPECIFIED 02/18/2018 RICHMOND PADILLA MD, Ot I10 ESSENTIAL (PRIMARY) HYPERTENSION 02/18/2018 RICHMOND PADILLA MD, Ot K63.9 DISEASE OF INTESTINE, UNSPECIFIED 02/18/2018 RICHMOND PADILLA MD, Ot R53.81 OTHER MALAISE 02/18/2018 RICHMOND PADILLA MD, Ot 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+] 02/18/2018 RICHMOND PADILLA MD, Ot Z68.33 BODY MASS INDEX (BMI) 33.0-33.9, ADULT 02/18/2018 RICHMOND PADILLA MD, Ot Z79.4 SANITATION SUPERINTENDENT (CURRENT) USE OF INSULIN 02/18/2018 RICHMOND PADILLA MD, Ot Z79.899 OTHER SHELTER (CURRENT) DRUG THERAPY 02/18/2018 RICHMOND PADILLA MD, [...] NEOPLM OF UPPER-OUTER QUADRANT OF 03/10/2018 RICHMOND PDAILLA MD, Ot C54.1 MALIGNANT NEOPLASM OF ENDOMETRIUM 03/10/2018 RICHMOND PADILLA MD Ot E11.319 TYPE 2 DIABETES W UNSP DIABETIC RTNOP W/ 03/10/2018 RICHMOND PADILLA MD, Ot E11.40 TYPE 2 DIABETES MELLITUS WITH DIABETIC N 03/10/2018 RICHMOND PADILLA MD, Ot E66.9 OBESITY, UNSPECIFIED 03/10/2018 RICHMOND PADILLA MD Ot I10 ESSENTIAL (PRIMARY) HYPERTENSION 03/10/2018 RICHMOND PADILLA MD, Ot K63.9 DISEASE OF INTESTINE, UNSPECIFIED 03/10/2018 RICHMOND PADILLA MD, Ot R53.81 OTHER MALAISE 03/10/2018 RICHMOND PADILLA MD, Ot 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+] 03/10/2018 RICHMOND PADILLA MD, Ot Z68.33 BODY MASS INDEX (BMI) 33.0-33.9, ADULT 03/10/2018 RICHMOND PADILLA MD, Ot Z79.4 SHELTER (CURRENT) USE OF INSULIN 03/10/2018 RICHMOND PADILLA MD, Ot Z79.899 OTHER SANITATION SUPERINTENDENT (CURRENT) DRUG THERAPY 03/10/2018 RICHMOND PADILLA MD, Ot Z90.710 ACQUIRED ABSENCE [...] 03/11/2018 RICHMOND PADILLA MD Ot Z79.899 OTHER SHELTER (CURRENT) DRUG THERAPY 03/11/2018 RICHMOND PADILLA MD [...] 03/19/2018 RICHMOND PADILLA MD Ot Z79.899 OTHER SHELTER (CURRENT) DRUG THERAPY 03/19/2018 RICHMOND PADILLA MD Ot Z90.710 ACQUIRED ABSENCE OF BOTH CERVIX AND UTER 05/04/2018 RICHMOND PADILLA MD, Ot 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 05/04/2018 RICHMOND PADILLA MD, Ot C54.1 MALIGNANT NEOPLASM OF ENDOMETRIUM 05/04/2018 RICHMOND PADILLA MD Ot E11.319 TYPE 2 DIABETES W UNSP DIABETIC RTNOP W/ 05/04/2018 RICHMOND PADILLA MD, Ot E11.40 TYPE 2 DIABETES MELLITUS WITH DIABETIC N 05/04/2018 RICHMOND PADILLA MD Ot E66.9 OBESITY, UNSPECIFIED 05/04/2018 RICHMOND PADILLA MD Ot I10 ESSENTIAL (PRIMARY) HYPERTENSION 05/04/2018 RICHMOND PADILLA MD, Ot K63.9 DISEASE OF INTESTINE, UNSPECIFIED 05/04/2018 RICHMOND PADILLA MD Ot R53.81 OTHER MALAISE 05/04/2018 RICHMOND PADILLA MD Ot 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+] 05/04/2018 RICHMOND PADILLA MD, Ot Z68.33 BODY MASS INDEX (BMI) 33.0-33.9, ADULT 05/04/2018 RICHMOND PADILLA MD Ot Z79.4 SHELTER (CURRENT) USE OF INSULIN 05/04/2018 RICHMOND PADILLA MD, Ot Z79.899 OTHER SHELTER (CURRENT) DRUG THERAPY 05/04/2018 RICHMOND PADILLA MD Ot Z90.710 ACQUIRED ABSENCE OF BOTH CERVIX AND UTER 05/14/2018 YANA HODGSON MD, Ot L95.9 VASCULITIS LIMITED TO THE SKIN, UNSPECIF 05/14/2018 YANA HODGSON MD, Ot L97.211 NON-PRS CHRONIC ULCER OF RIGHT CALF LIMI 05/14/2018 YANA HODGSON MD, Ot L97.221 NON-PRS CHRONIC ULCER OF LEFT CALF LIMIT 05/14/2018 YANA HODGSON MD, Ot L98.491 NON-PRS CHRONIC ULCER SKIN/ SITES LIMITE 05/14/2018 YANA HODGSON MD, Ot Z46.89 ENCOUNTER FOR FITTING AND ADJUSTMENT OF 05/28/2018 LESIA MERAZ MD Ot E11.9 TYPE 2 DIABETES MELLITUS WITHOUT COMPLIC 05/28/2018 LESIA MERAZ MD Ot E66.9 OBESITY, UNSPECIFIED 05/28/2018 LESIA MERAZ MD Ot R10.2 PELVIC AND PERINEAL PAIN 05/28/2018 LESIA MERAZ MD Ot R40.2142 COMA SCALE, EYES OPEN, SPONTANEOUS, EMR 05/28/2018 LESIA MERAZ MD Ot R40.2252 COMA SCALE, BEST VERBAL RESPONSE, ORIENT 05/28/2018 LESIA MERAZ MD Ot R40.2362 COMA SCALE, BEST MOTOR RESPONSE, OBEYS C 05/28/2018 LESIA MERAZ MD Ot S10.93XA CONTUSION OF UNSPECIFIED PART OF NECK, I 05/28/2018 LESIA MERAZ MD Ot S30.0XXA CONTUSION OF LOWER BACK AND PELVIS, INIT 05/28/2018 LESIA MERAZ MD Ot S40.021A CONTUSION OF RIGHT UPPER ARM, INITIAL EN 05/28/2018 LESIA MERAZ MD Ot S40.022A CONTUSION OF LEFT UPPER ARM, INITIAL ENC 05/28/2018 LESIA MERAZ MD Ot S80.11XA CONTUSION OF RIGHT LOWER LEG, INITIAL EN 05/28/2018 LESIA MERAZ MD Ot S80.12XA CONTUSION OF LEFT LOWER LEG, INITIAL ENC 05/28/2018 LESIA MERAZ MD Ot W18.30XA FALL ON SAME LEVEL, UNSPECIFIED, INITIAL 05/28/2018 LESIA MERAZ MD Ot Y92.[address] [facility] [address] IN [facility] NON-INSTITUT (PRIVATE 05/28/2018 LESIA MERAZ MD, Ot Z68.35 BODY MASS INDEX (BMI) 35.0-35.9, ADULT 05/28/2018 LESIA MERAZ MD Ot Z79.4 SHELTER (CURRENT) USE OF INSULIN 05/28/2018 LESIA MERAZ MD Ot Z80.0 FAMILY HISTORY OF MALIGNANT NEOPLASM OF 05/28/2018 LESIA MERAZ MD Ot Z80.1 FAMILY HISTORY OF MALIG NEOPLASM OF TRAC 05/28/2018 LESIA MERAZ MD Ot Z80.8 FAMILY HISTORY OF MALIGNANT NEOPLASM OF 05/28/2018 LESIA MERAZ MD Ot Z82.49 FAMILY HX OF ISCHEM HEART DIS AND OTH DI 05/28/2018 LESIA MERAZ MD, Ot Z85.3 PERSONAL HISTORY OF MALIGNANT NEOPLASM O 05/28/2018 LESIA MERAZ MD, Ot Z85.42 PERSONAL HISTORY OF MALIGNANT NEOPLASM O 05/28/2018 LESIA MERAZ MD, Ot Z85.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 OF FE 05/28/2018 LESIA MERAZ MD Ot Z87.59 PERSONAL HISTORY OF COMP OF PREG, CHLDBR 05/28/2018 LESIA MEARZ MD, Ot Z88.0 ALLERGY STATUS TO PENICILLIN 05/28/2018 LESIA MERAZ MD, Ot Z88.8 ALLERGY STATUS TO OTH DRUG/MEDS/BIOL SUB 05/28/2018 LESIA MERAZ MD Ot Z90.710 ACQUIRED ABSENCE OF BOTH CERVIX AND UTER 05/28/2018 LESIA MERAZ MD Ot Z91.040 LATEX ALLERGY STATUS 05/28/2018 LESIA MERAZ MD Ot Z91.048 OTHER NONMEDICINAL SUBSTANCE ALLERGY STA 05/28/2018 LESIA MERAZ MD Ot Z92.21 PERSONAL HISTORY OF ANTINEOPLASTIC CHEMO 05/31/2018 LESIA MERAZ MD Ot E11.9 TYPE 2 DIABETES MELLITUS WITHOUT COMPLIC 05/31/2018 LESIA MERAZ MD Ot E66.9 OBESITY, UNSPECIFIED 05/31/2018 LESIA MERAZ MD Ot R10.2 PELVIC AND PERINEAL PAIN 05/31/2018 LESIA MERAZ MD Ot R40.2142 COMA SCALE, EYES OPEN, SPONTANEOUS, EMR 05/31/2018 LESIA MERAZ MD Ot R40.2252 COMA SCALE, BEST VERBAL RESPONSE, ORIENT 05/31/2018 LESIA MERAZ MD Ot R40.2362 COMA SCALE, BEST MOTOR RESPONSE, OBEYS C 05/31/2018 LESIA MERAZ MD Ot S10.93XA CONTUSION OF UNSPECIFIED PART OF NECK, I 05/31/2018 LESIA MERAZ MD Ot S30.0XXA CONTUSION OF LOWER BACK AND PELVIS, INIT 05/31/2018 LESIA MERAZ MD Ot S40.021A CONTUSION OF RIGHT UPPER ARM, INITIAL EN 05/31/2018 LESIA MERAZ MD Ot S40.022A CONTUSION OF LEFT UPPER ARM, INITIAL ENC 05/31/2018 LESIA MERAZ MD, Ot S80.11XA CONTUSION OF RIGHT LOWER LEG, INITIAL EN 05/31/2018 LESIA MERAZ MD, Ot S80.12XA CONTUSION OF LEFT LOWER LEG, INITIAL ENC 05/31/2018 LESIA MERAZ MD Ot W18.30XA FALL ON SAME LEVEL, UNSPECIFIED, INITIAL 05/31/2018 LESIA MERAZ MD Ot Y92.[address] IN [facility] NON-INSTITUT (PRIVATE 05/31/2018 LSEIA MERAZ MD, Ot Z68.35 BODY MASS INDEX (BMI) 35.0-35.9, ADULT 05/31/2018 LESIA MERAZ MD, Ot Z79.4 SANITATION SUPERINTENDENT (CURRENT) USE OF INSULIN 05/31/2018 LESIA MERAZ MD, Ot Z80.0 FAMILY HISTORY OF MALIGNANT NEOPLASM OF 05/31/2018 LESIA MERAZ MD, Ot Z80.1 FAMILY HISTORY OF MALIG NEOPLASM OF TRAC 05/31/2018 LESIA MERAZ MD, Ot Z80.8 FAMILY HISTORY OF MALIGNANT NEOPLASM OF 05/31/2018 LESIA MERAZ MD Ot Z82.49 FAMILY HX OF ISCHEM HEART DIS AND OTH DI 05/31/2018 LESIA MERAZ MD Ot Z85.3 PERSONAL HISTORY OF MALIGNANT NEOPLASM O 05/31/2018 LESIA MERAZ MD Ot Z85.42 PERSONAL HISTORY OF MALIGNANT NEOPLASM O 05/31/2018 LESIA MERAZ MD, Ot Z85.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 OF FE 05/31/2018 LESIA MERAZ MD Ot Z87.59 PERSONAL HISTORY OF COMP OF PREG, CHLDBR 05/31/2018 LESIA MERAZ MD Ot Z88.0 ALLERGY STATUS TO PENICILLIN 05/31/2018 LESIA MERAZ MD Ot Z88.8 ALLERGY STATUS TO OTH DRUG/MEDS/BIOL SUB 05/31/2018 LESIA MERAZ MD Ot Z90.710 ACQUIRED ABSENCE OF BOTH CERVIX AND UTER 05/31/2018 LESIA MERAZ MD Ot Z91.040 LATEX ALLERGY STATUS 05/31/2018 LESIA MERAZ MD Ot Z91.048 OTHER NONMEDICINAL SUBSTANCE ALLERGY STA 05/31/2018 MARIYA FREY, LESIA Haines Ot Z92.21 PERSONAL HISTORY OF ANTINEOPLASTIC CHEMO 06/16/2018 RICHMOND PADILLA MD Ot 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 06/16/2018 RICHMOND PADILLA MD Ot C54.1 MALIGNANT NEOPLASM OF ENDOMETRIUM 06/16/2018 RICHMOND PADILLA MD Ot E11.319 TYPE 2 DIABETES W UNSP DIABETIC RTNOP W/ 06/16/2018 RICHMOND PADILLA MD Ot E11.40 TYPE 2 DIABETES MELLITUS WITH DIABETIC N 06/16/2018 RCIHMOND PADILLA MD Ot E66.9 OBESITY, UNSPECIFIED 06/16/2018 RICHMOND PADILLA MD Ot I10 ESSENTIAL (PRIMARY) HYPERTENSION 06/16/2018 RICHMOND PADILLA MD, Ot K63.9 DISEASE OF INTESTINE, UNSPECIFIED 06/16/2018 RICHMOND PADILLA MD Ot R53.81 OTHER MALAISE 06/16/2018 RICHMOND PADILLA MD Ot 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+] 06/16/2018 RICHMOND PADILLA MD, Ot Z45.2 ENCOUNTER FOR ADJUSTMENT AND MANAGEMENT 06/16/2018 RICHMOND PADILLA MD Ot Z68.33 BODY MASS INDEX (BMI) 33.0-33.9, ADULT 06/16/2018 RICHMOND PADILLA MD Ot Z79.4 SHELTER (CURRENT) USE OF INSULIN 06/16/2018 RICHMOND PADILLA MD Ot Z79.899 OTHER SHELTER (CURRENT) DRUG THERAPY 06/16/2018 RICHMOND PADILLA MD Ot Z90.710 ACQUIRED ABSENCE OF BOTH CERVIX AND UTER 06/16/2018 [facility] 250.82 DIAB W OTH SPEC MANIFEST, TYPE II OR UNS 06/16/2018 [facility] MAYTE BAEZ A Ot 459.81 VENOUS INSUFFICIENCY NOS 06/16/2018 [facility] MAYTE BAEZ A Ot 707.19 ULCER OF OTHER PART OF LOWER LIMB 06/16/2018 [facility] Ot 553.1 UMBILICAL HERNIA 06/16/2018 [facility] Ot 562.10 DIVERTICULOSIS COLON (W/O MENT OF HEMORR 06/16/2018 YANA BYRNES DO Ot 625.8 FEM GENITAL SYMPTOMS NEC 06/16/2018 YANA BYRNES DO Ot 627.1 POSTMENOPAUSAL BLEEDING 06/16/2018 FABIÁN POSADA MD Ot 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 06/16/2018 FABIÁN POSADA MD Ot C54.1 MALIGNANT NEOPLASM OF ENDOMETRIUM 06/16/2018 [facility] DEXTER Ot C54.1 MALIGNANT NEOPLASM OF ENDOMETRIUM 06/16/2018 [facility] APPR[facility] Ot E11.319 TYPE 2 DIABETES W UNSP DIABETIC RTNOP W/ 06/16/2018 [facility] Ot E66.01 MORBID (SEVERE) OBESITY DUE TO EXCESS CA 06/16/2018 [facility]PR[facility] Ot 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, 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[place] 06/16/2018 [facility] APPR[facility]ER Ot I10 ESSENTIAL (PRIMARY) HYPERTENSION 06/16/2018 TONY [facility] APPR[facility]ER Ot Z68.41 BODY MASS INDEX (BMI) 40.0-44.9, ADULT 06/16/2018 [facility] APPR[facility]ER Ot Z79.4 SANITATION SUPERINTENDENT (CURRENT) USE OF INSULIN 06/16/2018 [facility] APPR[facility] Ot Z79.899 OTHER SANITATION SUPERINTENDENT (CURRENT) DRUG THERAPY 06/16/2018 TELMA GRIER MD, Ot C54.1 MALIGNANT NEOPLASM OF ENDOMETRIUM 06/16/2018 TELMA GRIER MD Ot Z01.818 ENCOUNTER FOR OTHER PREPROCEDURAL EXAMIN 06/16/2018 KAREN MORALES DO Ot R60.0 LOCALIZED EDEMA 06/16/2018 FABIÁN POSADA MD Ot R06.02 SHORTNESS OF BREATH 06/16/2018 FABIÁN POSADA MD Ot C54.1 MALIGNANT NEOPLASM OF ENDOMETRIUM 06/16/2018 FABIÁN POSADA MD Ot C54.1 MALIGNANT NEOPLASM OF ENDOMETRIUM 06/16/2018 KAREN MORALES DO Ot R19.7 DIARRHEA, UNSPECIFIED 06/16/2018 KAREN MORALES DO Ot R30.0 DYSURIA 06/16/2018 FABIÁN POSADA MD Ot C54.1 MALIGNANT NEOPLASM OF ENDOMETRIUM 06/16/2018 FABIÁN POSADA MD Ot K42.9 UMBILICAL HERNIA WITHOUT OBSTRUCTION OR 06/16/2018 FABIÁN POSADA MD Ot J84.10 PULMONARY FIBROSIS, UNSPECIFIED 06/16/2018 FABIÁN POSADA MD Ot K44.9 DIAPHRAGMATIC HERNIA WITHOUT OBSTRUCTION 06/16/2018 FABIÁN POSADA MD Ot R63.4 ABNORMAL WEIGHT LOSS 06/16/2018 ALBINO FREY, FABIÁN Haines Ot Z12.31 ENCNTR SCREEN MAMMOGRAM FOR MALIGNANT NE 06/16/2018 ALBINO FREY, FABIÁN Haines Ot Z12.31 ENCNTR SCREEN MAMMOGRAM FOR MALIGNANT NE 06/16/2018 [facility] [facility] Ot K57.30 DVRTCLOS OF LG INT W/O PERFORATION OR AB 06/16/2018 CHEKOCRISTYIN L [employer] [facility] [facility] Ot K63.89 OTHER SPECIFIED DISEASES OF INTESTINE 06/16/2018 CHEKOCRISTY RAOIN L [facility] [facility] Ot Z85.42 PERSONAL HISTORY OF MALIGNANT NEOPLASM O 06/16/2018 [facility] RAOIN [facility] Ot Z90.49 ACQUIRED ABSENCE OF OTHER SPECIFIED PART 06/16/2018 [facility]CR[facility]YIN [facility] [facility] Ot Z90.710 ACQUIRED ABSENCE OF BOTH CERVIX AND UTER 06/16/2018 SANDRA FREY, LEILA Ot R92.8 OTH ABN AND INCONCLUSIVE FINDINGS ON DX 06/16/2018 [facility] AP[facility] Ot N63 UNSPECIFIED LUMP IN BREAST 06/16/2018 [facility] APPR[facility]ER Ot C50.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 06/16/2018 [facility] APPR[facility]ER Ot K63.9 DISEASE OF INTESTINE, UNSPECIFIED 06/16/2018 [facility] APPR[facility]ER Ot 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 06/16/2018 [facility] APPR[facility] Ot C54.1 MALIGNANT NEOPLASM OF ENDOMETRIUM 06/16/2018 [facility] APPR[facility] Ot Z78.0 ASYMPTOMATIC MENOPAUSAL STATE 06/16/2018 KAREN MORALES DO Ot R13.14 DYSPHAGIA, PHARYNGOESOPHAGEAL PHASE 06/16/2018 RICHMOND PADILLA MD Ot 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 06/16/2018 RICHMOND PADILLA MD Ot 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 06/16/2018 JOSE ARMANDO FREY FACC, ALI FACP CCDS Ot 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 06/16/2018 JOSE ARMANDO FREY FACC, ALI FACP CCDS Ot C54.1 MALIGNANT NEOPLASM OF ENDOMETRIUM 06/16/2018 JOSE ARMANDO FREY FACC, ALI FACP CCDS Ot E11.9 TYPE 2 DIABETES MELLITUS WITHOUT COMPLIC 06/16/2018 JOSE ARMANDO MD FACC, ALI FACP CCDS Ot 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, [place]FINED [place] 06/16/2018 JOSE ARMANDO FREY FACC, ALI FACP CCDS Ot R06.02 SHORTNESS OF BREATH 06/16/2018 JOSE ARMANDO FREY FACC, ALI FACP CCDS Ot R94.31 ABNORMAL ELECTROCARDIOGRAM [ECG] [EKG] 06/16/2018 JOSE ARMANDO FREY FACC, ALI FACP CCDS Ot 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 06/16/2018 JOSE ARMANDO FREY FACC, ALI FACP CCDS Ot C54.1 MALIGNANT NEOPLASM OF ENDOMETRIUM 06/16/2018 JOSE ARMANDO FREY FACC, ALI FACP CCDS Ot E11.9 TYPE 2 DIABETES MELLITUS WITHOUT COMPLIC 06/16/2018 JOSE ARMANDO FREY FACC, ALI FACP CCDS Ot 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, DEFINED IN [place] 06/16/2018 JOSE ARMANDO FREY FAC, ALI FACP CCDS Ot R06.02 SHORTNESS OF BREATH 06/16/2018 JOSE ARMANDO FREY FACC, ALI FACP CCDS Ot R94.31 ABNORMAL ELECTROCARDIOGRAM [ECG] [EKG] 06/16/2018 YANA HODGSON MD, Ot L95.9 VASCULITIS LIMITED TO THE SKIN, UNSPECIF 06/16/2018 YANA HODGSON MD, Ot L97.211 NON-PRS CHRONIC ULCER OF RIGHT CALF LIMI 06/16/2018 YANA HODGSON MD, Ot L97.221 NON-PRS CHRONIC ULCER OF LEFT CALF LIMIT 06/16/2018 YANA HODGSNO MD, Ot L98.491 NON-PRS CHRONIC ULCER SKIN/ SITES LIMITE 06/16/2018 YANA HODGSON MD, Ot L95.9 VASCULITIS LIMITED TO THE SKIN, UNSPECIF 06/16/2018 YANA HODGSON MD, Ot L97.211 NON-PRS CHRONIC ULCER OF RIGHT CALF LIMI 06/16/2018 YANA HODGSON MD, Ot L97.221 NON-PRS CHRONIC ULCER OF LEFT CALF LIMIT 06/16/2018 YANA HODGSON MD, Ot L98.491 NON-PRS CHRONIC ULCER SKIN/ SITES LIMITE 06/16/2018 YANA HODGSON MD, Ot Z46.89 ENCOUNTER FOR FITTING AND ADJUSTMENT OF 06/16/2018 YANA HODGSON MD, Ot L95.9 VASCULITIS LIMITED TO THE SKIN, UNSPECIF 06/16/2018 YANA HODGSON MD Ot L97.211 NON-PRS CHRONIC ULCER OF RIGHT CALF LIMI 06/16/2018 YANA HODGSON MD, Ot L97.221 NON-PRS CHRONIC ULCER OF LEFT CALF LIMIT 06/16/2018 YANA HODGSON MD, Ot L98.491 NON-PRS CHRONIC ULCER SKIN/ SITES LIMITE 06/23/2018 RICHMOND PADILLA MD Ot C50.919 MALIGNANT NEOPLASM OF UNSP SITE OF UNSPE 06/23/2018 RICHMOND PADILLA MD Ot C54.1 MALIGNANT NEOPLASM OF ENDOMETRIUM 06/23/2018 RICHMOND PADILLA MD Ot 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, 06/23/2018 RICHMOND PADILLA MD Ot G93.89 OTHER SPECIFIED DISORDERS OF BRAIN 06/23/2018 RICHMOND PADILLA MD Ot C50.919 MALIGNANT NEOPLASM OF UNSP SITE OF UNSPE 06/23/2018 RICHMOND PADILLA MD Ot C54.1 MALIGNANT NEOPLASM OF ENDOMETRIUM 06/23/2018 RICHMOND PADILLA MD Ot 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, 06/23/2018 LISA PADILLA MDNER Ot G93.89 OTHER SPECIFIED DISORDERS OF BRAIN 06/28/2018 RICHMOND PADILLA MD Ot C50.919 MALIGNANT NEOPLASM OF UNSP SITE OF UNSPE 06/28/2018 RICHMOND PADILLA MD Ot C54.1 MALIGNANT NEOPLASM OF ENDOMETRIUM 06/28/2018 RICHMOND PADILLA MD Ot 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, 06/28/2018 LISA PADILLA MDNER Ot G93.89 OTHER SPECIFIED DISORDERS OF BRAIN 07/13/2018 RICHMOND PADILLA MD Ot C50.919 MALIGNANT NEOPLASM OF UNSP SITE OF UNSPE 07/13/2018 RICHMOND PADILLA MD Ot C54.1 MALIGNANT NEOPLASM OF ENDOMETRIUM 07/13/2018 RICHMOND PADILLA MD Ot 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, 07/13/2018 LISA PADILLA MDNER Ot G93.89 OTHER SPECIFIED DISORDERS OF BRAIN 08/09/2018 RICHMOND PADILLA MD Ot 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 08/09/2018 RICHMOND PADILLA MD Ot C54.1 MALIGNANT NEOPLASM OF ENDOMETRIUM 08/09/2018 RICHMOND PADILLA MD Ot E11.319 TYPE 2 DIABETES W UNSP DIABETIC RTNOP W/ 08/09/2018 RICHMOND PADILLA MD Ot E11.40 TYPE 2 DIABETES MELLITUS WITH DIABETIC N 08/09/2018 RICHMOND PADILLA MD Ot E66.9 OBESITY, UNSPECIFIED 08/09/2018 RICHMOND PADILLA MD Ot I10 ESSENTIAL (PRIMARY) HYPERTENSION 08/09/2018 RICHMOND PADILLA MD, Ot K63.9 DISEASE OF INTESTINE, UNSPECIFIED 08/09/2018 RICHMOND PADILLA MD Ot R53.81 OTHER MALAISE 08/09/2018 RICHMOND PADILLA MD, Ot 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 Results Test Result Range Bacterial urine culture - 04/17/16 15:25 Bacterial urine culture [id number] NRG COLONY COUNT >100,000/ML NRG FTX;REPORTABLE SENSITIVITY REPORTED 04/19/16 11:40 NR Bacterial susceptibility panel - 04/17/16 15:25 Oxacillin [...] measurement by glucometer (mass/volume) 77 mg/dL 70-110 [id number] - 04/29/17 10:39 Serum or plasma urea [...] culture - 05/07/17 12:00 Bacterial urine culture [id number] NR COLONY COUNT >100,000/ML NR FTX;REPORTABLE SENSITIVITY REPORTED 05/09/17 11:00 [facility] Bacterial susceptibility panel - 05/07/17 12:00 Gentamicin susceptibility test by minimum inhibitory concentration < = NRG Trimethoprim/sulfamethoxazole susceptibility test by minimum inhibitoryconcentration >= NR Ampicillin susceptibility test by minimum inhibitory concentration > = NR Tobramycin susceptibility test by minimum inhibitory concentration < = NR Cefazolin susceptibility test by minimum inhibitory concentration S NR Ceftriaxone susceptibility test by minimum inhibitory concentration S [facility] Ampicillin/sulbactam susceptibility test by minimum inhibitory concentration <= NRG Piperacillin/tazobactam susceptibility test by minimum inhibitory concentration <= NRG Ciprofloxacin susceptibility test by minimum inhibitory concentration <= NR Meropenem susceptibility test by minimum inhibitory concentration < = NRG Nitrofurantoin susceptibility test by minimum inhibitory concentration R NR Aztreonam susceptibility test by minimum inhibitory concentration S [facility] Bacterial urine culture - 05/26/17 16:35 URINE CULTURE RESULTS STAPH) NR Complete urinalysis with reflex to culture - [...] culture - 11/19/17 14:55 Bacterial urine culture [id number] NRG COLONY COUNT >100,000/ML NRG FTX;REPORTABLE SENSITIVITY REPORTED AT 1745, 3--18 NRG Bacterial susceptibility panel - 11/19/17 14:55 Gentamicin [...] measurement by glucometer (mass/volume) 121 mg/dL 70-110 Complete blood count (CBC) with automated white blood cell (WBC) differential - 05/28/18 08:00 Blood leukocytes automated count (number/volume) 6.7 10*3/uL 4.3-11.0 Blood erythrocytes automated count (number/volume) 3.02 10*6/uL 4.35-5.85 Venous blood hemoglobin measurement (mass/volume) 9.8 g/dL 11.5-16.0 Blood hematocrit (volume fraction) 29 % 35-52 Automated erythrocyte mean corpuscular volume 95 [foz_us] 80-99 Automated erythrocyte mean corpuscular hemoglobin (mass per erythrocyte) 33 pg 25-34 Automated erythrocyte mean corpuscular hemoglobin concentration measurement ( mass/volume) 34 g/dL 32-36 Automated erythrocyte distribution width ratio 14.0 % 10.0-14.5 Automated blood platelet count (count/volume) 251 10*3/uL 130-400 Automated blood platelet mean volume measurement 9.4 [foz_us] 7.4-10.4 Automated blood neutrophils/100 leukocytes 74 % 42-75 Automated blood lymphocytes/100 leukocytes 13 % 12-44 Blood monocytes/100 leukocytes 11 % 0-12 Automated blood eosinophils/100 leukocytes 3 % 0-10 Automated blood basophils/100 leukocytes 0 % 0-10 Blood neutrophils automated count (number/volume) 4.9 10*3 1.8-7.8 Blood lymphocytes automated count (number/volume) 0.9 10*3 1.0-4.0 Blood monocytes automated count (number/volume) 0.7 10*3 0.0-1.0 Automated eosinophil count 0.2 10*3/uL 0.0-0.3 Automated blood basophil count (count/volume) 0.0 10*3/uL 0.0-0.1 Complete urinalysis with reflex to culture - 05/28/18 08:00 Urine color determination YELLOW NRG Urine clarity determination VERY CLOUDY NRG Urine pH measurement by test strip 5 5-9 Specific gravity of urine by test strip 1.020 1.016- 1.022 Urine protein assay by test strip, semi-quantitative 2+ NEGATIVE Urine glucose detection by automated test strip NEGATIVE NEGATIVE Erythrocytes detection in urine sediment by light microscopy 1+ NEGATIVE Urine ketones detection by automated test strip NEGATIVE NEGATIVE Urine nitrite detection by test strip NEGATIVE NEGATIVE Urine total bilirubin detection by test strip NEGATIVE NEGATIVE Urine urobilinogen measurement by automated test strip (mass/volume) NORMAL NORMAL Urine leukocyte esterase detection by dipstick 3+ NEGATIVE Automated urine sediment erythrocyte count by microscopy (number/high power field) [HPF] NRG Automated urine sediment leukocyte count by microscopy (number/high power field ) [HPF] NRG Bacteria detection in urine sediment by light microscopy LARGE NRG Squamous epithelial cells detection in urine sediment by light microscopy RARE NRG Crystals detection in urine sediment by light microscopy NONE NRG Casts detection in urine sediment by light microscopy NONE NRG Mucus detection in urine sediment by light microscopy NEGATIVE NRG Complete urinalysis with reflex to culture YES NRG Comprehensive metabolic panel - 05/28/18 08:00 Serum or plasma sodium measurement (moles/volume) 135 mmol/L 135-145 Serum or plasma potassium measurement (moles/volume) 4.1 mmol/L 3.6-5.0 Serum or plasma chloride measurement (moles/volume) 103 mmol/L 98-107 Carbon dioxide 23 mmol/L 21-32 Serum or plasma anion gap determination (moles/volume) 9 mmol/L 5-14 Serum or plasma urea nitrogen measurement (mass/volume) 47 mg/dL 7-18 Serum or plasma creatinine measurement (mass/volume) 1.64 mg/dL 0.60-1.30 Serum or plasma urea nitrogen/creatinine mass ratio 29 NRG Serum or plasma creatinine measurement with calculation of estimated glomerular filtration rate 30 NRG Serum or plasma glucose measurement (mass/volume) 242 mg/dL 70-105 Serum or plasma calcium measurement (mass/volume) 9.4 mg/dL 8.5-10.1 Serum or plasma total bilirubin measurement (mass/volume) 0.2 mg/dL 0.1-1.0 Serum or plasma alkaline phosphatase measurement (enzymatic activity/volume) 92 U/L 40-136 Serum or plasma aspartate aminotransferase measurement (enzymatic activity/ volume) 20 U/L 5-34 Serum or plasma alanine aminotransferase measurement (enzymatic activity/volume ) 12 U/L 0-55 Serum or plasma protein measurement (mass/volume) 6.7 g/dL 6.4-8.2 Serum or plasma albumin measurement (mass/volume) 3.9 g/dL 3.2-4.5 CALCIUM CORRECTED 9.5 mg/dL 8.5-10.1 Bacterial urine culture - 05/28/18 08:00 Bacterial urine culture [id number] NRG COLONY COUNT >100,000/ML NRG FTX;REPORTABLE RML SENT SENSITIVITY REPORT 05/30 09:05 NR RML Sensitivity Panel - 05/28/18 08:00 Gentamicin susceptibility test by minimum inhibitory concentration < = NRG Trimethoprim/sulfamethoxazole susceptibility test by minimum inhibitoryconcentration R NRG Levofloxacin susceptibility test by minimum inhibitory concentration <= NRG Ampicillin susceptibility test by minimum inhibitory concentration R NRG Cefazolin susceptibility test by minimum inhibitory concentration R NRG Ceftriaxone susceptibility test by minimum inhibitory concentration <= NRG Ciprofloxacin susceptibility test by minimum inhibitory concentration 1 NRG Meropenem susceptibility test by minimum inhibitory concentration < = NRG Nitrofurantoin susceptibility test by minimum inhibitory concentration <= NRG Amoxicillin and clavulanate potassium susc LEWIS R NRG Encounters ACCT No. Visit Date/Time Discharge Status Pt. Type Provider Facility Loc./Unit Complaint [id number] 08/18/2018 15:20:00 08/18/2018 23:59:59 CLS Outpatient RICHMOND PADILLA MD [facility] ONC [id number] 06/22/2018 11:17:00 06/22/2018 23:59:59 CLS Outpatient RICHMOND PADILLA MD [facility] RAD MEMORY LOSS [id number] 05/04/2018 13:15:00 06/16/2018 13:45:00 DIS Outpatient RICHMOND PADILLA MD [facility] ONC [id number] 05/28/2018 07:52:00 05/28/2018 11:15:00 DIS Emergency MARIYA FREY, LESIA Haines [facility] ER FALL;R SIDE PAIN;NECK PAIN [id number] 05/27/2018 16:02:00 05/27/2018 23:59:59 CLS Preadmit RICHMOND PADILLA MD [facility] RAD R41.3 MEMORY LOSS [id number] 03/18/2018 14:10:00 03/18/2018 23:59:59 CLS Preadmit RICHMOND PADILLA MD [facility] RAD MEMORY LOSS [id number] 02/18/2018 16:39:00 03/10/2018 00:01:00 DIS Outpatient RICHMOND PADILLA MD [facility] ONC [id number] 01/18/2018 13:33:00 01/18/2018 23:59:59 CLS Outpatient YANA HODGSON MD [facility] WOUNDCARE [id number] 01/04/2018 14:03:00 01/04/2018 23:59:59 CLS Outpatient YANA HODGSON MD [facility] WOUNDCARE [id number] 12/28/2017 12:18:00 12/28/2017 23:59:59 CLS Outpatient YANA HODGSON MD [facility] WOUNDCARE [id number] 11/27/2017 11:35:00 11/27/2017 15:35:00 DIS Outpatient TELMA GRIER MD [facility] ENDO HX OF COLON MASS [id number] 11/24/2017 06:33:00 11/24/2017 12:47:00 DIS Outpatient TELMA GRIER MD [facility] PREOP COLONOSCOPY [id number] 11/19/2017 13:56:00 11/19/2017 00:01:00 DIS Outpatient RICHMOND PADILLA MD [facility] ONC [id number] 10/07/2017 13:21:00 10/07/2017 23:59:59 CLS Outpatient JOSE ARMANDO FREY FACNOEMI Tavera FACP CCDS [facility] CARD R06.02 SHORTNESS OF BREATH [id number] 10/06/2017 08:21:00 10/06/2017 23:59:59 CLS Outpatient JOSE ARMANDO FREY FACC, NOEMI FACVaishali CCDS [facility] CARD R06.02 SHORTNESS OF BREATH [id number] 09/16/2017 08:54:00 09/16/2017 23:59:59 CLS Outpatient RICHMOND PADILLA MD [facility] RAD 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 [id number] 08/14/2017 12:36:00 08/20/2017 14:30:00 DIS Outpatient NII BORDEN [facility] ONC [id number] 08/19/2017 09:08:00 08/19/2017 23:59:59 CLS Outpatient RICHMOND PADILLA MD [facility] RAD 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 [id number] 06/29/2017 10:04:00 06/29/2017 23:59:59 CLS Outpatient KAREN MORALES DO [facility] RAD DYSPHAGIA TO SOLIDS R13.10 [id number] 06/25/2017 09:57:00 06/25/2017 23:59:59 CLS Outpatient ANNETTE JIMENEZ [facility] RAD Z78.0 [id number] 05/26/2017 15:31:00 06/13/2017 00:01:00 DIS Outpatient NII BORDEN [facility] ONC [id number] 05/19/2017 10:17:00 05/19/2017 23:59:59 CLS Outpatient [facility] 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 [id number] 05/11/2017 12:49:00 05/11/2017 23:59:59 CLS Outpatient [facility] RAD R92.8 [id number] 05/06/2017 10:36:00 05/06/2017 23:59:59 CLS Outpatient LEILA FLORES MD [facility] RAD R92.8 [id number] 04/29/2017 10:17:00 04/29/2017 23:59:59 CLS Outpatient NOBLE STILL APRN [facility] RAD SIGMOID MASS, DIVERTICULOSIS [id number] 04/22/2017 11:00:00 04/22/2017 16:00:00 DIS Outpatient TELMA GRIER MD [facility] ENDO ANEMIA CHANGE BOWEL HABITS HX OF BLACK TARRY STOOL [id number] 04/21/2017 13:19:00 04/21/2017 13:27:00 DIS Outpatient TELMA GRIER MD [facility] PREOP ANEMIA CHANGE BOWEL HABITS HX BLACK TARRY STOOL [id number] 04/16/2017 11:30:00 04/16/2017 23:59:59 CLS Preadmit FABIÁN POSADA MD [facility] RAD SCREENING [id number] 04/16/2017 11:17:00 04/16/2017 23:59:59 CLS Outpatient FABIÁN POSADA MD [facility] RAD R63.4 ABNORMAL WEIGHT LOSS SCREENING [id number] 04/09/2017 13:34:00 04/09/2017 23:59:59 CLS Outpatient FABIÁN POSADA MD [facility] ONC [id number] 03/25/2017 12:40:00 03/25/2017 16:00:00 DIS Outpatient YANA HODGSON MD [facility] WOUNDCARE [id number] 02/19/2017 17:25:00 02/21/2017 12:57:00 DIS Outpatient TELMA GRIER MD [facility] SDC R THORACIC RADICULOPATHY [id number] 02/05/2017 12:16:00 02/05/2017 23:59:59 CLS Outpatient FABIÁN POSADA MD [facility] RAD C54.1 [id number] 01/05/2017 13:07:00 01/11/2017 00:01:00 DIS Outpatient FABIÁN POSADA MD [facility] ONC [id number] 08/28/2016 12:55:00 10/08/2016 00:01:00 DIS Outpatient FABIÁN POSADA MD [facility] ONC [id number] 07/10/2016 09:13:00 07/10/2016 23:59:59 CLS Outpatient FABIÁN POSADA MD [facility] RAD UTERINE CA [id number] 04/17/2016 13:49:00 06/23/2016 10:30:00 DIS Outpatient FABIÁN POSADA MD [facility] ONC [id number] 06/12/2016 11:57:00 06/12/2016 23:59:59 CLS Outpatient KAREN MORALES DO [facility] HH DYSURIA, POSSIBLE UTI [id number] 04/23/2016 16:55:00 04/23/2016 23:59:59 CLS Outpatient KAREN MORALES DO [facility] HH POSSIBLE C DIFF, DIARRHEA [id number] 03/20/2016 10:27:00 04/02/2016 00:01:00 DIS Outpatient FABIÁN POSADA MD [facility] ONC [id number] 03/17/2016 11:38:00 03/17/2016 15:24:00 DIS Emergency HUGH MCCULLOUGH DO [facility] ER DIZZINESS [id number] 01/15/2016 12:02:00 01/15/2016 23:59:59 CLS Outpatient FABIÁN POSADA MD [facility] RAD UTERINE CANCER [id number] 01/10/2016 11:44:00 01/10/2016 23:59:59 CLS Outpatient FABIÁN POSADA MD [facility] RAD [id number] 01/09/2016 12:25:00 01/09/2016 15:00:00 DIS Outpatient YANA HODGSON MD [facility] WOUNDCARE [id number] 12/27/2015 09:54:00 12/30/2015 00:01:00 DIS Outpatient FABIÁN POSADA MD [facility] ONC [id number] 10/31/2015 12:55:00 10/31/2015 23:59:59 CLS Outpatient KAREN MORALES DO [facility] RAD EDEMA LEFT LEG [id number] 10/11/2015 06:16:00 10/11/2015 23:59:59 CLS Outpatient TELMA GRIER MD [facility] SDC ENDOMETRIAL CANCER [id number] 10/10/2015 13:30:00 10/10/2015 23:59:59 CLS Outpatient FABIÁN POSADA MD [facility] RAD ENDOMETRIAL CA [id number] 10/09/2015 10:57:00 10/09/2015 23:59:59 CLS Outpatient TELMA GRIER MD [facility] PREOP PORT PLACEMENT [id number] 10/04/2015 10:58:00 10/04/2015 23:59:59 CLS Outpatient ANNETTE JIMENEZ [facility] ONC [id number] 08/24/2015 12:26:00 09/12/2015 00:01:00 DIS Outpatient FABIÁN POSADA MD [facility] ONC [id number] 08/02/2015 21:58:00 08/06/2015 13:45:00 DIS Inpatient KAREN MORALES DO [facility] 4TH UTI,INTRACTABLE PAIN OF BUTTOCK,R/T RADIATION BURN [id number] 06/13/2015 12:33:00 06/13/2015 00:01:00 DIS Outpatient FABIÁN POSADA MD [facility] ONC [id number] 05/29/2015 10:34:00 05/29/2015 23:59:59 CLS Outpatient FABIÁN POSADA MD [facility] RAD ENDOMETRIAL CA [id number] 05/16/2015 12:32:00 05/25/2015 12:00:00 DIS Outpatient COLTHARP MAYTE BAEZ [facility] WOUNDCARE [id number] 04/23/2015 13:56:00 04/23/2015 23:59:59 CLS Outpatient FENECH YANA BAEZ S [facility] RAD POST MENOPAUSAL BLEEDING WITH MASS [id number] 04/13/2015 12:24:00 04/13/2015 23:59:59 CLS Outpatient LY MORALES [facility] RAD VAG BLEEDING [id number] 03/28/2015 12:02:00 03/28/2015 23:59:59 CLS Outpatient IZA MAYTE Garibay [facility] RAD ULCER,DM,VENOUS INSUFFICIENCY [id number] 12/17/2014 07:48:00 12/17/2014 10:14:00 DIS Emergency VIRGILIO FREY, SANTIAGO Berkowitz [facility] ER CONGESTION [id number] 10/05/2014 13:17:34 10/05/2014 13:17:34 DIS Outpatient [id number] 03/05/2015 17:16:57 Document Registration [id number] 03/05/2015 17:16:54 Document Registration [id number] 03/05/2015 17:16:50 Document Registration [id number] 03/05/2015 17:16:46 Document Registration [id number] 02/19/2015 14:34:20 Document Registration [id number] 02/19/2015 14:34:17 Document Registration [id number] 02/19/2015 14:34:13 Document Registration [id number] 02/19/2015 14:34:10 Document Registration [id number] 02/19/2015 14:34:05 Document Registration [id number] 02/19/2015 14:33:50 Document Registration [id number] 02/19/2015 14:33:45 Document Registration [id number] 08/07/2014 15:17:00 Document Registration [id number] 05/23/2014 18:42:00 Document Registration [email or web address] 06/25/2015 14:01:15 ACT Document Registration
[2018-09-06] MEDS ORDERED: NS IV 500 ML 500 ML IV ONE (14:47)
[2018-09-06 15:01] LABS: BILIRUBIN,URINE NEGATIVE (NEGATIVE); CLARITY,URINE CLEAR; COLOR,URINE YELLOW; GLUCOSE, URINE (UA) NEGATIVE (NEGATIVE); KETONES,URINE NEGATIVE (NEGATIVE); LEUKOCYTE ESTERASE ,URINE 2+ (NEGATIVE); NITRITE,URINE NEGATIVE (NEGATIVE); PH,URINE 8 (5-9); PROTEIN,URINE 3+ (NEGATIVE); UROBILINOGEN,URINE NORMAL (NORMAL)
--- NOTE | 2018-09-06 15:07 | ED General ---
General Chief Complaint: Altered Mental Status Stated Complaint: LOW SODIUM LEVELS/CONFUSION/MEMORY LOSS Source of Information: Patient, Family Exam Limitations: No Limitations History of Present Illness Date Seen by Provider: Sep 06, 2018 Time Seen by Provider: 14:33 Initial Comments Here with report of confusion and that has worsened over the last several days and over the last month. The family is concerned about sodium level as that has apparently been declining over the last couple of months. They are unsure why that happened. She has daily evaluation ongoing. They have been using Gatorade and sodium additions and her diet. Does have strong odor of urine. She does live with the daughter and son-in-law who have started care for her as she has become increasingly debilitated through dementia and general decline. She fell a few months back and has lived with her family since then. No report of vomiting or diarrhea. Patient is complaining of posterior head pain. No report of falls. Timing/Duration: 1 Week, Getting Worse Severity: Moderate Modifying Factors: worse with Rest Associated Systoms: No Chest Pain, No Cough, No Fever/Chills; Headaches; No Nausea/Vomiting, No Shortness of Air; Weakness Allergies and Home Medications Allergies Coded Allergies: miconazole (Verified Allergy, Intermediate, RASH, 04/21/17) rash/hives ampicillin (Unverified Allergy, Unknown, 04/21/17) lanolin (Unverified Allergy, Unknown, 04/21/17) Ymlzgwy-Xac-Lpl Reductase Inhibitor (Unverified Adverse Reaction, Unknown , 04/21/17) adhesive tape (Unverified Adverse Reaction, Unknown, 04/21/17) latex (Unverified Adverse Reaction, Unknown, 04/21/17) Home Medications Amitriptyline HCl 25 Mg Tablet, 25 MG PO HS, (Reported) Carboxymethylcellulose Sodium 15 Ml Drops, 1-2 DROPS OU QID PRN for DRY EYES, ( Reported) Citalopram Hydrobromide 10 Mg Tablet, 10 MG PO HS, (Reported) Hydroxyzine HCl 25 Mg Tablet, 25 MG PO Q8H PRN for ITCHING, (Reported) Insulin Glargine,Hum.rec.anlog 100 Unit/1 Ml Insuln.pen, 10 UNIT SQ HS, ( Reported) Lisinopril 20 Mg Tablet, 20 MG PO DAILY, (Reported) Magnesium Oxide 400 Mg Capsule, 400 MG PO 1200, (Reported) Metformin HCl 500 Mg Tab.er.24h, 500 MG PO DAILY, (Reported) Pantoprazole Sodium 40 Mg Tablet.dr, 40 MG PO DAILY Prescribed by: JASON BE on 02/21/17 1421 Ranitidine HCl 150 Mg Tablet, 150 MG PO DAILY PRN for HEARTBURN, (Reported) Solifenacin Succinate 5 Mg Tablet, 5 MG PO DAILY, (Reported) Trimethoprim 100 Mg Tablet, 100 MG PO HS, (Reported) Vit C/Vit E/Lutein/Min/[place]-3 1 Each Capsule, 1 CAP PO DAILY, (Reported) [Trubiotic] , 1 TAB PO 1200, (Reported) Patient Home Medication List Home Medication List Reviewed: Yes Review of Systems Review of Systems Constitutional: see HPI; No chills, No fever EENTM: No ear pain, No throat pain Respiratory: No cough, No short of breath Cardiovascular: No chest pain, No edema Gastrointestinal: abdominal pain (middle abdomen), loss of appetite Genitourinary: incontinence, other (dark and foul-smelling urine per the daughter) Musculoskeletal: back pain; No neck pain Skin: lesions (multiple abrasions to the lower extremities bilateral that are apparently improved from previous) Psychiatric/Neurological: Headache, Weakness All Other Systems Reviewed Negative Unless Noted: Yes Past Rztoins-Ffpxwf-Yiqjcq Hx Past Med/Social Hx: Reviewed Nursing Past Med/Soc Hx Patient Social History Alcohol Use: Denies Use Smoking Status: Never a Smoker Recent Foreign Travel: No Contact w/Someone Who Travel: No Recent Hopitalizations: No Immunizations Up To Date Tetanus Booster (TDap): Unknown Date of Pneumonia Vaccine: Oct 02, 2015 Date of Influenza Vaccine: Jun 23, 2017 Seasonal Allergies Seasonal Allergies: No Past Medical History Surgeries: Yes (bilat knee scopes, umb hernia, R breast lumpectomy, ) Abdominal, Section, Eye Surgery, Gallbladder, Hysterectomy, Oophorectomy, Orthopedic Respiratory: No Cardiac: Yes Chronic Edema/Swelling Neurological: Yes Neuropathy Reproductive Disorders: Yes (CANCER--SEE BELOW) Sexually Transmitted Disease: No HIV/AIDS: No Genitourinary: No Renal Failure Gastrointestinal: No (hx of colon mass) Musculoskeletal: Yes Degenerate Disk Disease, Arthritis, Chronic Back Pain Endocrine: Yes (Type II, obesity) Diabetes, Insulin dep HEENT: Yes Macular Degeneration Loss of Vision: Bilateral Hearing Impairment: Denies Cancer: Yes (ENDOMETRIAL ) Breast, Uterine, Vaginal Did You Recieve Any Treatments: Yes What Type of Treatment Did You: Chemotherapy, Radiation, Surgical Intervention Psychosocial: Yes Sleep Difficulties Integumentary: Yes Pruritis, Recent Skin Changes Blood Disorders: No ("bleeds easily") Adverse Reaction/Blood Tranf: No Family Medical History FH: lung cancer G8 SISTER FH: stomach cancer G8 BROTHER FH: uterine cancer 19 MOTHER Myocardial infarction 19 FATHER Neoplasm SON No Pertinent Family Hx Physical Exam Vital Signs Vital Signs - First Documented 09/06/18 14:28 Temp 97.7 Pulse 75 Resp 14 B/P (MAP) 167/75 (105) Pulse Ox 96 Capillary Refill : Height, Weight, BMI Height: 5'0" Weight: 170lbs. 0.0oz. 77.043412al; 35.1 BMI Method:Stated General Appearance: WD/WN, Anxious HEENT: PERRL/EOMI, Pharynx Normal, Other (mucous membranes dry) Neck: Non Tender, Supple Respiratory: Lungs Clear, Normal Breath Sounds Cardiovascular: Regular Rate, Rhythm, No Murmur Gastrointestinal: Non Tender, Soft Back: Normal Inspection, No CVA Tenderness, No Vertebral Tenderness Extremity: Normal Range of Motion, Non Tender Neurologic/Psychiatric: Alert, Disoriented (place, time and situation), Motor Weakness (global) Focused Exam Lactate Level 09/06/18 15:13: Lactic Acid Level 0.63 Lactic Acid Level Laboratory Tests Test 09/06/18 15:13 Lactic Acid Level 0.63 MMOL/L (0.50-2.00) Progress/Results/Core Measures Suspected Sepsis SIRS Temperature: Pulse: Respiratory Rate: Laboratory Tests 09/06/18 14:55: White Blood Count 5.0 Blood Pressure / Mean: 09/06/18 15:13: Lactic Acid Level 0.63 Laboratory Tests 09/06/18 14:55: Creatinine 0.89, Platelet Count 290, Total Bilirubin 0.3 Results/Orders Lab Results Laboratory Tests Test 09/06/18 14:54 09/06/18 14:55 09/06/18 15:13 Range/Units Urine Color YELLOW Urine Clarity CLEAR Urine pH 8 5-9 Urine Specific [employer] 1.015 L 1.016-1.022 Urine Protein 3+ H NEGATIVE Urine Glucose (UA) NEGATIVE NEGATIVE Urine Ketones NEGATIVE NEGATIVE Urine Nitrite NEGATIVE NEGATIVE Urine Bilirubin NEGATIVE NEGATIVE Urine Urobilinogen NORMAL NORMAL MG/DL Urine Leukocyte Esterase 2+ H NEGATIVE Urine RBC (Auto) 1+ H NEGATIVE Urine RBC 2-5 H /HPF Urine WBC 25-50 H /HPF Urine Squamous Epithelial Cells 0-2 /HPF Urine Renal Epithelial Cells 0-2 /HPF Urine Crystals NONE /LPF Urine Bacteria FEW H /HPF Urine Casts NONE /LPF Urine Mucus NEGATIVE /LPF Urine Culture Indicated YES White Blood Count 5.0 4.3-11.0 10^3/uL Red Blood Count 3.10 L 4.35-5.85 10^6/uL Hemoglobin 9.8 L 11.5-16.0 G/DL Hematocrit 28 L 35-52 % Mean Corpuscular Volume 90 80-99 FL Mean Corpuscular Hemoglobin 32 25-34 PG Mean Corpuscular Hemoglobin Concent 35 32-36 G/DL Red Cell Distribution Width 13.6 10.0-14.5 % Platelet Count 290 130-400 10^3/uL Mean Platelet Volume 8.4 7.4-10.4 FL Neutrophils (%) (Auto) 74 42-75 % Lymphocytes (%) (Auto) 9 L 12-44 % Monocytes (%) (Auto) 10 0-12 % Eosinophils (%) (Auto) 7 0-10 % Basophils (%) (Auto) 0 0-10 % Neutrophils # (Auto) 3.7 1.8-7.8 X 10^3 Lymphocytes # (Auto) 0.5 L 1.0-4.0 X 10^3 Monocytes # (Auto) 0.5 0.0-1.0 X 10^3 Eosinophils # (Auto) 0.3 0.0-0.3 10^3/uL Basophils # (Auto) 0.0 0.0-0.1 10^3/uL Sodium Level 122 *L 135-145 MMOL/L Potassium Level 3.8 3.6-5.0 MMOL/L Chloride Level 82 L 98-107 MMOL/L Carbon Dioxide Level 30 21-32 MMOL/L Anion Gap 10 5-14 MMOL/L Blood Urea Nitrogen 18 7-18 MG/DL Creatinine 0.89 0.60-1.30 MG/DL Estimat Glomerular Filtration Rate > 60 BUN/Creatinine Ratio 20 Glucose Level 93 70-105 MG/DL Calcium Level 8.7 8.5-10.1 MG/DL Corrected Calcium 9.2 8.5-10.1 MG/DL Total Bilirubin 0.3 0.1-1.0 MG/DL Aspartate Amino Transf (AST/SGOT) 19 5-34 U/L Alanine Aminotransferase (ALT/SGPT) 12 0-55 U/L Alkaline Phosphatase 79 40-136 U/L Troponin I < 0.30 <0.30 NG/ML C-Reactive Protein High Sensitivity 0.39 0.00-0.50 MG/DL Total Protein 6.1 L 6.4-8.2 GM/DL Albumin 3.4 3.2-4.5 GM/DL TSH Barton Testing 2.30 0.35-4.94 UIU/ML Lactic Acid Level 0.63 0.50-2.00 MMOL/L My Orders Orders - DEANNA ARZATE MD Hs C Reactive Protein (09/06/18 14:47) Thyroid Analyzer (09/06/18 14:47) Troponin I (09/06/18 14:47) Chest 1 View, Ap/Pa Only (09/06/18 14:47) Ct Head Wo (09/06/18 14:47) Ns Iv 500 Ml (Sodium Chloride 0.9%) (09/06/18 14:47) Lactic Acid Analyzer (09/06/18 14:47) Blood Culture (09/06/18 14:47) Ekg Tracing (09/06/18 15:07) Ceftriaxone For Iv Use (Rocephin For I (09/06/18 17:00) Medications Given in ED Current Medications Medications Dose Ordered Sig/Anupam Route Start Time Stop Time Status Last Admin Dose Admin Sodium Chloride 500 ml @ 0 mls/hr Q0M ONCE IV 09/06/18 14:47 09/06/18 14:50 DC 09/06/18 15:53 500 MLS/HR Vital Signs/I&O 09/06/18 14:28 Temp 97.7 Pulse 75 Resp 14 B/P (MAP) 167/75 (105) Pulse Ox 96 Capillary Refill : Progress Note : Progress Note Seen and evaluated. Likely multifactorial problem. We will check CT the head as well as chest x-ray and EKG and get labs and UA. Normal saline 500 mL bolus ordered. Monitor patient. No acute findings on CT. Sodium is low at 122. Patient does have urinary tract infection. Due to her underlying disease and current state, admission is indicated. We will need to do fluid restriction and monitor sodium as well as treat the urinary tract infection. Review of previous urinary tract infections shows multiple drug-resistant organisms but Rocephin seems to work for the different organisms that she has had. Rocephin 1 g IV ordered. I did discuss the case with Dr. Mcdowell at 1636 and she accepts patient for admission, inpatient status. Patient and family agree with plan. ECG Initial ECG Impression Date: Sep 06, 2018 Initial ECG Impression Time: 15:27 Initial ECG Rate: 71 Initial ECG Rhythm: Normal Sinus Comment Sinus rhythm with first-degree AV block. Left axis deviation. Left ventricular hypertrophy. No evidence of ST elevation [place]. Change from 03/17/16 with new right bundle branch block. Interpreted by me. Diagnostic Imaging Diagonstic Imaging: Xray Plain Films/CT/US/NM/MRI: chest Comments [facility], [place] NAME: SUSANA BELCHER Tiffany MED REC#: [id number] PT STATUS: REG ER : 1940 PHYSICIAN: DEANNA ARZATE MD ADMIT DATE: 09/06/18/ER Draft Date of Exam:09/06/18 CHEST 1 VIEW, AP/PA ONLY INDICATION: Hyponatremia. COMPARISON: None available. FINDINGS: Visualized lungs are clear. Specifically, no pulmonary mass is appreciated. Posterior lower lobes are poorly evaluated by portable radiography. No pleural effusion or pneumothorax. Heart is borderline enlarged. Degenerative changes are present in both glenohumeral joints. IMPRESSION: No acute cardiopulmonary process by portable radiography. Dictated on workstation # [id number] Dict: 09/06/18 1518 Trans: 09/06/18 1521 [facility] [id number] Interpreted by: LEROY CHUA MD Electronically signed by: Diagonstic Imaging: CT Plain Films/CT/US/NM/MRI: head Comments NAME: SUSANA BELCHER MED REC#: [id number] PT STATUS: REG ER : 1940 PHYSICIAN: DEANNA ARZATE MD ADMIT DATE: 09/06/18/ER Signed Date of Exam: 09/06/18 CT HEAD WO PROCEDURE: CT head without contrast. TECHNIQUE: Multiple contiguous axial images were obtained through the brain without the use of intravenous contrast. DATE: September 06, 2018. COMPARISON: MRI brain June 22, 2018. CT head and cervical spine May 28, 2018. INDICATION: 78-year-old female, altered mental status. Dementia. Right eye pain and headache. FINDINGS: The orbits are grossly unremarkable in appearance. There is mild proportional prominence of the ventricles and CSF spaces compatible with mild cerebral volume loss. There are areas of low attenuation in the periventricular and subcortical white matter likely reflecting moderate changes of chronic small vessel ischemic disease. There is no mass effect or midline shift. There is no acute intracranial hemorrhage. There is no abnormal extra-axial fluid collection. The visualized portions of the paranasal sinuses, mastoid air cells and middle ears are well aerated. IMPRESSION: 1. No identified acute intracranial abnormality. 2. Mild cerebral volume loss with moderate changes of chronic small vessel ischemic disease. Dictated by: Dictated on workstation # [id number] Dict: 09/06/18 1524 Trans: 09/06/18 1546 Interpreted by: IDRIS TRINIDAD MD Electronically signed by: IDRIS TRINIDAD MD 09/06/18 1546 Departure Communication (Admissions) Time/Spoke to Admitting Phy: 16:36 Impression Primary Impression: Hyponatremia Additional Impression: Urinary tract infection Qualified Codes: N30.00 - Acute cystitis without hematuria Disposition: ADMITTED INPATIENT Condition: Stable Admissions Decision to Admit Reason: Admit from ER (General) Decision to Admit/Date: Sep 06, 2018 Time/Decision to Admit Time: 16:36 Departure-Patient Inst. Referrals: KAREN MORALES DO (PCP/Family) Primary Care Physician DENANA ARZATE MD Sep 06, 2018 15:07
[2018-09-06 15:08] LABS: BACTERIA,URINE FEW /HPF; SQUAMOUS EPITHELIAL CELL,UR 0-2 /HPF; WBC,URINE 25-50 /HPF
[2018-09-06 15:09] LABS: RENAL EPITHELIAL CELLS,URINE 0-2 /HPF
[2018-09-06 15:21] LABS: BASOPHILS % (AUTO) 0 % (0-10); EOSINOPHILS # (AUTO) 0.3 10^3/uL (0.0-0.3); EOSINOPHILS % (AUTO) 7 % (0-10); HEMATOCRIT 28 % (35-52); HEMOGLOBIN 9.8 G/DL (11.5-16.0); LYMPHOCYTES # (AUTO) 0.5 X 10^3 (1.0-4.0); LYMPHOCYTES % (AUTO) 9 % (12-44); MEAN CORPUSCULAR HEMOGLOBIN 32 PG (25-34); MEAN CORPUSCULAR HGB CONC 35 G/DL (32-36); MEAN CORPUSCULAR VOLUME 90 FL (80-99); MEAN PLATELET VOLUME 8.4 FL (7.4-10.4); MONOCYTES # (AUTO) 0.5 X 10^3 (0.0-1.0); MONOCYTES % (AUTO) 10 % (0-12); NEUTROPHILS # (AUTO) 3.7 X 10^3 (1.8-7.8); NEUTROPHILS % (AUTO) 74 % (42-75); PLATELET COUNT 290 10^3/uL (130-400); RED CELL DISTRIBUTION WIDTH 13.6 % (10.0-14.5)
--- NOTE | 2018-09-06 15:21 | Diagnostic Imaging Report ---
INDICATION: Hyponatremia. COMPARISON: None available. FINDINGS: Visualized lungs are clear. Specifically, no pulmonary mass is appreciated. Posterior lower lobes are poorly evaluated by portable radiography. No pleural effusion or pneumothorax. Heart is borderline enlarged. Degenerative changes are present in both glenohumeral joints. IMPRESSION: No acute cardiopulmonary process by portable radiography. Dictated by: Dictated on workstation # [id number]
[2018-09-06 15:32] LABS: ALANINE AMINOTRANSFERASE 12 U/L (0-55); ALBUMIN 3.4 GM/DL (3.2-4.5); ALKALINE PHOSPHATASE 79 U/L (40-136); BILIRUBIN,TOTAL 0.3 MG/DL (0.1-1.0); BUN/CREATININE RATIO 20; CALCIUM 8.7 MG/DL (8.5-10.1); CARBON DIOXIDE 30 MMOL/L (21-32); CHLORIDE 82 MMOL/L (98-107); CREATININE SERUM 0.89 MG/DL (0.60-1.30); GFR ESTIMATED > 60; GLUCOSE 93 MG/DL (70-105); POTASSIUM 3.8 MMOL/L (3.6-5.0); TOTAL PROTEIN 6.1 GM/DL (6.4-8.2)
--- NOTE | 2018-09-06 15:32 | Diagnostic Imaging Report ---
PROCEDURE: CT head without contrast. TECHNIQUE: Multiple contiguous axial images were obtained through the brain without the use of intravenous contrast. DATE: September 06, 2018. COMPARISON: MRI brain June 22, 2018. CT head and cervical spine May 28, 2018. INDICATION: 78-year-old female, altered mental status. Dementia. Right eye pain and headache. FINDINGS: The orbits are grossly unremarkable in appearance. There is mild proportional prominence of the ventricles and CSF spaces compatible with mild cerebral volume loss. There are areas of low attenuation in the periventricular and subcortical white matter likely reflecting moderate changes of chronic small vessel ischemic disease. There is no mass effect or midline shift. There is no acute intracranial hemorrhage. There is no abnormal extra-axial fluid collection. The visualized portions of the paranasal sinuses, mastoid air cells and middle ears are well aerated. IMPRESSION: 1. No identified acute intracranial abnormality. 2. Mild cerebral volume loss with moderate changes of chronic small vessel ischemic disease. Dictated by: Dictated on workstation # [id number]
[2018-09-06 15:39] LABS: SODIUM 122 MMOL/L (135-145)
[2018-09-06] MEDS ORDERED: cefTRIAXone FOR IV USE 1,000 MG in NS (IVPB) 50 ML IV ONE (17:00)
--- OUTSIDE RECORDS SUMMARY | 2018-09-06 17:09 | XMS REPORT | Clinical Summary ---
Author Author [facility] Organization [facility] Address Unknown Phone Unavailable Care Team Providers Care Plasma Table Operator Name Role Phone Missael Jaramillo MD PCP Nadege Knapp RN Unavailable Unavailable Natasha Echols MD Unavailable Source Comments Some departments are not documenting in the electronic medical record. If you do not see the information that you expected, contact Release of Information in the Health Information Management department at [phone] for further assistance in locating additional records.[facility] Allergies Comments Active Allergy Reactions Severity Noted Date Amoxicillin RASH Medium 05/07/2015 Chocolate HEADACHE Low 05/07/2015 Irbesartan RASH Medium 10/02/2017 Patient experiences swelling and hot skin to the touch. 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 Right breast sono-guided biopsy 05/11/17 ([place], [place]) revealed grade 2 invasive ductal carcinoma. Ms. Nicole has been followed by Dr. Tello and is currently getting endocrine therapy. A PET/CT was ordered in May 2017 which showed abnormal uptake in the pelvis and there was a possible rectosigmoid mass. Ms. Nicole underwent right lumpectomy on 10/29/17. PATHOLOGY: Tumor: 1.5 cm ILC Margins Free From Tumor: Yes ER: positive MO: positive Her 2: negative Grade: 2 LVSI: no BREAST IMAGING: Mammogram: -- Bilateral screening mammogram 04/16/17 ([place], [place]) revealed scattered fibroglandular densities. In the [...] unremarkable. Ultrasound: -- Right breast ultrasound 05/06/17 ([place], [place]) revealed a poorly defined spiculated hypoechoic mass measuring 1.6 x 1.5 x 1.6 cm in the region of mammogram finding. There was internal blood flow. Biopsy was recommended. -- Right breast ultrasound 08/19/17 ([place], [place]) revealed at 9:30, 6 cm FTN, there was a hypoechoic mass with irregular margins measuring 1.3 x 1.5 x 1.4 cm and demonstrated internal vascularity which appeared slightly less prominent compared to previous exam. This was minimally smaller in size compared to prior measurement of 1.6 x 1.5 x 1.6 cm. -- Right breast ultrasound 09/16/17 ([place], [place]) revealed at 9:30, 6 cm FTN [...] axillary lymph node. Other: -- PET/CT 05/19/17 ([place], [place]) revealed abnormal uptake involving the left [...] hysterectomy 05/15/[address] Mario Michael in [place], [place] with a diagnosis of endometrial FIGO grade 1. Per pt., was told that they got it all and did not need further tx. Pt. has not had annual pelvic examinations or f/u since that time. 2. Pt. was referred from PCP Dr. Jaramillo to [facility] Salinas in [place], [place] on 04/18/15 for post-menopausal bleeding beginning [...] her CT Scan, which was done in [place], I suspect the areas of interest are: [...] thought of traveling from her home in [place] to the cancer center, radiation/chemotherapy. I also discussed her options should she decline any therapy-would recommend hospice. Consideration for epidural pain pump in the event of progressive pain. I have contacted the [facility] [place] and she has been scheduled with one [...] Taken Vital Sign Reading 08/03/2018 2:16 PM LINUX NETWORK SYSTEMS ADMINISTRATOR Blood Pressure 158/61 08/03/2018 2:16 PM LINUX NETWORK SYSTEMS ADMINISTRATOR Pulse 65 08/03/2018 2:16 PM LINUX NETWORK SYSTEMS ADMINISTRATOR Temperature 36.8 C (98.2 F) 08/03/2018 2:16 PM LINUX NETWORK SYSTEMS ADMINISTRATOR Respiratory Rate 18 08/03/2018 2:16 PM LINUX NETWORK SYSTEMS ADMINISTRATOR Oxygen Saturation 100% - Inhaled Oxygen - Concentration 08/03/2018 2:16 PM LINUX NETWORK SYSTEMS ADMINISTRATOR Weight 83.7 kg (184 lb 9.6 oz) 08/03/2018 2:16 PM LINUX NETWORK SYSTEMS ADMINISTRATOR Height 154.9 cm (5' 1") 08/03/2018 2:16 PM LINUX NETWORK SYSTEMS ADMINISTRATOR Body Mass Index 34.88 Plan of Treatment [...] Type Area Manufactur er 06/02/2018 / / [id number] Smark-10/08/2017 Clip Implanted: Qty: 1 on 10/08/2017 by Mauro Pacheco MD Procedures Comments Procedure Name Priority Date/Time Associated Diagnosis MAMMO DIAGNOSTIC JUAN PABLO/DAYANA Routine 08/03/2018 Malignant neoplasm of 3:15 PM LINUX NETWORK SYSTEMS ADMINISTRATOR upper-outer quadrant of right breast in female, estrogen receptor positive (HCC) from Last 3 Months Results * MAMMO DIAGNOSTIC JUAN PABLO/DAYANA (08/03/2018 3:15 PM LINUX NETWORK SYSTEMS ADMINISTRATOR) Impressions Performed At [facility] BI-RADS Assessments: BIRAD 2-Benign [facility] RESULTS RECOMMENDATION: Routine screening mammogram in 1 year. Narrative Performed At Last mammogram was performed 1 year and 3 months ago. [facility] RAD RESULTS Reason for exam: history of breast cancer, conservation therapy. first time back since surgery [id number] MAMMO DIAGNOSTIC JUAN PABLO/DAYANA: AUGUST 03, 2018 - 2D/3D Procedure 3D Routine views. 2D Routine views. Technologists: Angie Young, Aquaculture Farmer; Eladia Goodson Prior study comparison: October 08, 2017, right breast [id number] MAMMO DIAG RT performed at [facility].October 02, 2017, right breast [id number] MAMMO DIAGNOSTIC RT/DAYANA performed at [facility]. May 11, 2017, mammogram.April 16, 2017, [...] or areas of architectural distortion. Approved by Irladna Harrell M.D. on 08/03/2018 3:28 PM By my electronic signature, I attest that I have personally reviewed the images for this examination and formulated the interpretations and opinions expressed in this report Finalized by Mauro Pacheco M.D. on 08/03/2018 3:43 PM. Dictated by Irlanda Harrell M.D. on 08/03/2018 3:16 PM. Electronically signed and approved by: Mauro Pacheco M.D. [id number] Procedure Note Interface, Radiant Results - 08/03/2018 3:43 PM LINUX NETWORK SYSTEMS ADMINISTRATOR Last mammogram was performed 1 year and 3 months ago. Reason for exam: history of breast cancer, conservation therapy. first time back since surgery [id number] MAMMO DIAGNOSTIC JUAN PABLO/DAYANA: AUGUST 03, 2018 - 2D/3D Procedure 3D Routine views. 2D Routine views. Technologists: Angie Young, Aquaculture Farmer; Eladia Goodson Prior study comparison: October 08, 2017, right breast [id number] MAMMO DIAG RT performed at [facility]. October 02, 2017, right breast [id number] MAMMO DIAGNOSTIC RT/DAYANA performed at [facility]. May 11, 2017, mammogram. April 16, [...] signed and approved by: Mauro Pacheco M.D. [id number] IMPRESSION ACR BI-RADS Assessments: BIRAD 2-Benign RECOMMENDATION: [...] on file. For more information, please contact: [facility] [address] [place] [address]
--- OUTSIDE RECORDS SUMMARY | 2018-09-06 17:09 | XMS REPORT | Encounter Summary ---
Author Author [facility] Organization [facility] Address Unknown Phone Unavailable Care Team Providers Care Water Systems Designer Name Role Phone Missael Jaramillo MD PCP Nadege Knapp RN Unavailable Unavailable Natasha Echols MD Unavailable Reason for Visit * Radiology Services (Routine) Referred By Contact Referred To Contact Status Reason Specialty Diagnoses / Procedures Franca Bills PA-C [address] [place] [address] Ic1 Mammo [address] [place] [address] No Auth Needed Radiology Diagnoses nilda [id number] P rocedures DIGITAL MAMMO SCREEN BILAT HR/DAYANA/CAD DIGITAL MAMMO DX JUAN PABLO DAYANA Encounter Details Care Team Description Date Type Department Kirk Cho DO [address] [place] [address] [phone] 08/03/2018 Hospital [facility] Encounter [facility] [address] [place] [address] Social History Date Tobacco Use Types Packs/Day [...] Routine 08/03/2018 Malignant neoplasm of 3:15 PM DELIVERY ASSOCIATE upper-outer quadrant of right breast in female, estrogen receptor positive (HCC) in this encounter Results * MAMMO DIAGNOSTIC JUAN PABLO/DAYANA (08/03/2018 3:15 PM DELIVERY ASSOCIATE) Impressions Performed At [facility] BI-RADS Assessments: BIRAD 2-Benign [facility] RESULTS RECOMMENDATION: Routine screening mammogram in 1 year. Narrative Performed At Last mammogram was performed 1 year and 3 months ago. [facility] RAD RESULTS Reason for exam: history of breast cancer, conservation therapy. first time back since surgery [id number] MAMMO DIAGNOSTIC JUAN PABLO/DAYANA: AUGUST 03, 2018 - 2D/3D Procedure 3D Routine views. 2D Routine views. Technologists: Angie Young, Senior Technical Architect; Eladia Goodson Prior study comparison: October 08, 2017, right breast [id number] MAMMO DIAG RT performed at [facility].October 02, 2017, right breast [id number] MAMMO DIAGNOSTIC RT/DAYANA performed at [facility]. May 11, 2017, mammogram.April 16, 2017, mammogram. [...] signed and approved by: Mauro Pacheco M.D. [id number] Procedure Note Interface, Radiant Results - 08/03/2018 3:43 PM DELIVERY ASSOCIATE Last mammogram was performed 1 year and 3 months ago. Reason for exam: history of breast cancer, conservation therapy. first time back since surgery [id number] MAMMO DIAGNOSTIC JUAN PABLO/DAYANA: AUGUST 03, 2018 - 2D/3D Procedure 3D Routine views. 2D Routine views. Technologists: Angie Young, Senior Technical Architect; Eladia Goodson Prior study comparison: October 08, 2017, right breast [id number] MAMMO DIAG RT performed at [facility]. October 02, 2017, right breast [id number] MAMMO DIAGNOSTIC RT/DAYANA performed at [facility]. May 11, 2017, mammogram. April 16, 2017, [...] signed and approved by: Mauro Pacheco M.D. [id number] IMPRESSION ACR BI-RADS Assessments: BIRAD 2-Benign RECOMMENDATION: Routine screening mammogram in 1 year. Performing Organization Address City/State/Zipcode Phone Number [facility] RESULTS in this encounter Visit Diagnoses Diagnosis Malignant neoplasm of upper-outer quadrant of right breast in female, estrogen receptor positive (HCC) in this encounter
--- OUTSIDE RECORDS SUMMARY | 2018-09-06 17:09 | XMS REPORT | Encounter Summary ---
Author Author [facility] Organization [facility] Address Unknown Phone Unavailable Care Team Providers Care Shank Scourer Name Role Phone Missael Jaramillo MD PCP Nadege Knapp RN Unavailable Unavailable Natasha Echols MD Unavailable Reason for Visit * Reason Comments Heme/Onc Care Encounter Details Care Team Description Date Type Department Kirk Cho DO [address] [place] [address] [phone] Franca Bills PA-C [address] [place] [address] [phone] Malignant neoplasm of upper-outer quadrant of right breast in female, estrogen receptor positive (HCC) (Primary Dx) 08/03/2018 Office Visit [facility] - IC Exam [id number] [place], [place] [address] Social History Date Tobacco Use Types Packs/Day [...] Taken Vital Sign Reading 08/03/2018 2:16 PM FUR FLOOR WORKER Blood Pressure 158/61 08/03/2018 2:16 PM FUR FLOOR WORKER Pulse 65 08/03/2018 2:16 PM FUR FLOOR WORKER Temperature 36.8 C (98.2 F) 08/03/2018 2:16 PM FUR FLOOR WORKER Respiratory Rate 18 08/03/2018 2:16 PM FUR FLOOR WORKER Oxygen Saturation 100% - Inhaled Oxygen - Concentration 08/03/2018 2:16 PM FUR FLOOR WORKER Weight 83.7 kg (184 lb 9.6 oz) 08/03/2018 2:16 PM FUR FLOOR WORKER Height 154.9 cm (5' 1") 08/03/2018 2:16 PM FUR FLOOR WORKER Body Mass Index 34.88 in this encounter [...] Franca Bills PA-C - 08/03/2018 2:15 PM FUR FLOOR WORKER Name: Ayleen Nicole : 1940 AGE: 78 y.o. DATE OF SERVICE: 08/03/2018 Cancer Staging Malignant neoplasm of upper-outer quadrant of right breast in female, estrogen receptor positive (HCC) Staging form: Breast, AJCC 8th Edition - Clinical stage from 05/06/2017: Stage IA (cT1c, cN0, cM0, G2, ER: Positive, MN : Positive, HER2: Negative) - Signed by Franca Bills PA-C on 09/21/2017 - Pathologic stage from 10/29/2017: Stage IA (pT1c, pN0, cM0, G2, ER: Positive, MN: Positive, HER2: Negative) - Signed by Franca [...] was recommended. Right breast sono-guided biopsy 05/11/17 ([place], [place]) revealed grade 2 invasive ductal carcinoma. Ms. Nicole has been followed by Dr. Tello and is currently getting endocrine therapy. A PET/CT was ordered in May 2017 which showed abnormal uptake in the pelvis and there was a possible rectosigmoid mass. Ms. Nicole underwent right lumpectomy on 10/29/17. PATHOLOGY: Tumor: 1.5 cm ILC Margins Free From Tumor: Yes ER: positive MN: positive Her 2: negative Grade: 2 LVSI: no BREAST IMAGING: Mammogram: -- Bilateral screening mammogram 04/16/17 ([place], [place]) revealed scattered fibroglandular densities. In the [...] unremarkable. Ultrasound: -- Right breast ultrasound 05/06/17 ([place], [place]) revealed a poorly defined spiculated hypoechoic mass measuring 1.6 x 1.5 x 1.6 cm in the region of mammogram finding. There was internal blood flow. Biopsy was recommended. -- Right breast ultrasound 08/19/17 ([place], [place]) revealed at 9:30, 6 cm FTN, there was a hypoechoic mass with irregular margins measuring 1.3 x 1.5 x 1.4 cm and demonstrated internal vascularity which appeared slightly less prominent compared to previous exam. This was minimally smaller in size compared to prior measurement of 1.6 x 1.5 x 1.6 cm. -- Right breast ultrasound 09/16/17 ([place], [place]) revealed at 9:30, 6 cm FTN [...] axillary lymph node. Other: -- PET/CT 05/19/17 ([place], [place]) revealed abnormal uptake involving the left [...] RASH Irbesartan RASH Latex RASH and ITCHING Lllhfjk-Iih-Pwp Reductase Inhibitors HEADACHE and RASH Chocolate HEADACHE [...] LUMPECTOMY performed by Kirk Cho DO at [facility] OR/PERIOP COLONOSCOPY HX CATARACT REMOVAL HX REFRACTIVE [...] a lot of difficulty getting up to [place]. She can continue mammograms and breast exams [...] today 3. RTC PRN Franca Bills PA-C FLOOR WORKER in this encounter Plan of Treatment Not on fileas of this encounter Visit Diagnoses Diagnosis Malignant neoplasm of upper-outer quadrant of right breast in female, estrogen receptor positive (HCC) - Primary in this encounter
--- OUTSIDE RECORDS SUMMARY | 2018-09-06 17:09 | XMS REPORT | Encounter Summary ---
Author Author [facility] Organization [facility] Address Unknown Phone Unavailable Care Team Providers Care Pan Pusher Name Role Phone Missael Jaramillo MD PCP Nadege Knapp RN Unavailable Unavailable Natasha Echols MD Unavailable Reason for Visit * Reason Comments Results Encounter Details Care Team Description Date Type Department Kirk Cho DO [address] [place] [address] [phone] Results 08/09/2018 Telephone [facility] - IC Exam [id number] [place] [address] Social History Date Tobacco Use Types Packs/Day [...] Ruchi Bills RN - 08/09/2018 11:33 AM OYSTERMAN Left message for patient with results of [...] signed and approved by: Mauro Pacheco M.D. [id number] IMPRESSION ACR BI-RADS Assessments: BIRAD 2-Benign RECOMMENDATION: Routine screening mammogram in 1 year. ERMAN in this encounter Plan of Treatment Not on fileas of this encounter Visit Diagnoses Not on filein this encounter
--- OUTSIDE RECORDS SUMMARY | 2018-09-06 17:17 | XMS REPORT | Continuity of Care Document ---
Author Author [facility] Organization [facility] Address Unknown Phone Unavailable Allergies Active Description Code Type Severity Reaction Onset Reported/Identified Relationship to Patient Clinical Status Yes LANOLIN 6227 Drug Allergy N/A N/A Yes LATEX Drug Allergy N/A N/A Yes LIPITOR [id number] Drug Allergy N/A N/A Yes STATINS Drug Allergy N/A N/A Yes SULFA Drug Allergy N/A N/A Yes metformin [id number] Drug Allergy Unknown N/A 12/23/2006 Yes miconazole [id number] Drug Allergy Moderate RASH 04/21/2017 Yes adhesive tape [id number] Drug Allergy Unknown N/A 04/21/2017 Yes ampicillin [id number] Drug Allergy Unknown N/A 04/21/2017 Yes lanolin [id number] Drug Allergy Unknown N/A 04/21/2017 Yes latex [id number] Drug Allergy Unknown N/A 04/21/2017 Yes Oadjnwh-Rzr-Wer Reductase Inhibitor [id number] Drug Allergy Unknown N/A 04/2017 Medications Medication Packaging Start Date Stop Date Route Dosage Sig LANTUS ML 07/05/2014 Subcutaneous [id number] at bedtime LYRICA 09/04/2014 ORAL 3030 at [...] ADULT 08/13/1029 FABIÁN POSADA MD, Ot Z79.4 HALF-WAY (CURRENT) USE OF INSULIN 08/13/1029 FABIÁN POSADA MD, Ot Z79.899 OTHER HALF-WAY (CURRENT) DRUG THERAPY 08/13/1344 RICHMOND PADILLA MD, [...] ADULT 08/13/1344 RICHMOND PADILLA MD, Ot Z79.4 HALF-WAY (CURRENT) USE OF INSULIN 08/13/1344 RICHMOND PADILLA MD, Ot Z79.899 OTHER HALF-WAY (CURRENT) DRUG THERAPY 08/13/1344 RICHMOND PADILLA MD [...] Garibay Ot 459.81 04/02/2015 COLTHARP DO, MAYTE [place] Ot 707.19 04/19/2015 COLTHARP DO, MAYTE Garibay Ot 250.82 04/19/2015 COLTHARP DO, MAYTE Garibay Ot 459.81 04/19/2015 COLTHARP DO, MAYTE [place] Ot 707.19 04/27/2015 FENECH DO, YANA S Ot 625.8 04/27/2015 [facility] DO, YANA S Ot 627.1 05/04/2015 LY MORALES SENIOR LOAN OFFICER Ot 553.1 05/04/2015 LY MORALES SENIOR LOAN OFFICER Ot 562.10 05/15/2015 FENECH DO, YANA S [...] THE CAUSE OF DIS 08/06/2015 KAREN MORALES DO Ot C54.1 MALIGNANT NEOPLASM OF ENDOMETRIUM [...] ADULT 08/06/2015 KAREN MORALES DO, Ot Z79.4 HALF-WAY (CURRENT) USE OF INSULIN 09/12/2015 FABIÁN POSADA [...] ADULT 09/12/2015 FABIÁN POSADA MD, Ot Z79.4 HALF-WAY (CURRENT) USE OF INSULIN 09/12/2015 FABIÁN POSADA MD, Ot Z79.899 OTHER HALF-WAY (CURRENT) DRUG THERAPY 09/24/2015 FABIÁN POSADA MD, [...] MAYTE A Ot 707.19 10/10/2015 LY MORALES SENIOR LOAN OFFICER Ot 553.1 10/10/2015 LY MORALES SENIOR LOAN OFFICER Ot 562.10 10/10/2015 FENECH DO, YANA S Ot 625.8 10/10/2015 [facility] DO, YANA S Ot 627.1 10/10/2015 ALBINO FREY, FABIÁN Haines [...] FABIÁN Haines Ot Z79.899 10/10/2015 ANNETTE JIMENEZ SENIOR LOAN OFFICER Ot C54.1 10/10/2015 ANNETTE JIMENEZ SENIOR LOAN OFFICER Ot E11.319 10/10/2015 ANNETTE JIMENEZ SENIOR LOAN OFFICER Ot E66.01 10/10/2015 ANNETTE JIMENEZ SENIOR LOAN OFFICER Ot H54.8 10/10/2015 ANNETTE JIMENEZ SENIOR LOAN OFFICER Ot I10 10/10/2015 ANNETTE JIEMNEZ SENIOR LOAN OFFICER Ot Z68.41 10/10/2015 ANNETTE JIMENEZ SENIOR LOAN OFFICER Ot Z79.4 10/10/2015 ANNETTE JIMENEZ SENIOR LOAN OFFICER Ot Z79.899 10/10/2015 MARVEL FREY, TELMA Ot C54.1 10/10/2015 MARVEL FREY, TEMLA Ot Z01.818 10/11/2015 MARVEL FREY, TELMA Ot [...] FREY, FABIÁN K Ot Z51.0 10/18/2015 ALBINO RFEY, FABIÁN K Ot Z68.41 10/18/2015 ALBINO FREY, FABIÁN K Ot Z79.4 10/18/2015 ALBINO FREY, FABIÁN K Ot Z79.899 10/25/2015 ANNETTE JIMENEZ SENIOR LOAN OFFICER Ot C54.1 10/25/2015 ANNETTE JIMENEZ SENIOR LOAN OFFICER Ot E11.319 10/25/2015 ANNETTE JIMENEZ SENIOR LOAN OFFICER Ot E66.01 10/25/2015 ANNETTE JIMENEZ SENIOR LOAN OFFICER Ot H54.8 10/25/2015 ANNETTE JIMENEZ SENIOR LOAN OFFICER Ot I10 10/25/2015 ANNETTE JIMENEZ SENIOR LOAN OFFICER Ot Z68.41 10/25/2015 ANNETTE JIMENZE SENIOR LOAN OFFICER Ot Z79.4 10/25/2015 ANNETTE JIMENEZ SENIOR LOAN OFFICER Ot Z79.899 10/31/2015 ALBINO FREY, FABIÁN Haines Ot C54.1 11/07/2015 ALBINO FREY, FABIÁN Haines Ot C54.1 11/07/2015 ALBINO FREY, FABÁIN K Ot E11.319 11/07/2015 ALBINO FREY, FABIÁN Haines Ot E66.01 11/07/2015 ALBINO FREY, FABIÁN Haines Ot H54.8 11/07/2015 ALBINO FREY, FABIÁN K Ot I10 11/07/2015 ALBINO FREY, FABIÁN Yancy Ot Z51.0 11/07/2015 ALBINO FREY, FABIÁN K Ot Z68.41 11/07/2015 ALBINO FREY, FABIÁN Haines Ot Z79.4 11/07/2015 ALBINO FREY, FABIÁN Haines [...] KAREN MORALES DO Ot R60.0 12/30/2015 ALBINO FERY, FABIÁN Haines Ot C54.1 MALIGNANT NEOPLASM OF [...] ADULT 12/30/2015 FABIÁN POSADA MD Ot Z79.4 TOWER SWITCH OPERATOR (CURRENT) USE OF INSULIN 12/30/2015 FABIÁN POSADA MD, Ot Z79.899 OTHER TOWER SWITCH OPERATOR (CURRENT) DRUG THERAPY 12/31/2015 FABIÁN POSADA MD, [...] ADULT 12/31/2015 FABIÁN POSADA MD, Ot Z79.4 TOWER SWITCH OPERATOR (CURRENT) USE OF INSULIN 12/31/2015 FABIÁN POSADA MD, Ot Z79.899 OTHER HALF-WAY (CURRENT) DRUG THERAPY 12/31/2015 FABIÁN POSADA MD, [...] ADULT 12/31/2015 FABIÁN POSADA MD Ot Z79.4 TOWER SWITCH OPERATOR (CURRENT) USE OF INSULIN 12/31/2015 FABIÁN POSADA MD, Ot Z79.899 OTHER HALF-WAY (CURRENT) DRUG THERAPY 01/04/2016 YANA HODGSON MD [...] ADULT 01/10/2016 FABIÁN POSADA MD, Ot Z79.4 TOWER SWITCH OPERATOR (CURRENT) USE OF INSULIN 01/10/2016 FABIÁN POSADA MD, Ot Z79.899 OTHER HALF-WAY (CURRENT) DRUG THERAPY 01/14/2016 FABIÁN POSADA MD [...] ADULT 01/31/2016 FABIÁN POSADA MD, Ot Z79.4 TOWER SWITCH OPERATOR (CURRENT) USE OF INSULIN 01/31/2016 FABIÁN POSADA MD, Ot Z79.899 OTHER HALF-WAY (CURRENT) DRUG THERAPY 02/05/2016 FABIÁN POSADA MD, [...] 03/17/2016 JAMEL DO, HUGH K Ot Z79.4 HALF-WAY (CURRENT) USE OF INSULIN 03/17/2016 JAMEL DO, HUGH K Ot Z79.899 OTHER HALF-WAY (CURRENT) DRUG THERAPY 03/20/2016 JAMEL DO, HUGH [...] 03/20/2016 JAMEL DO, HUGH K Ot Z79.4 HALF-WAY (CURRENT) USE OF INSULIN 03/20/2016 JAMEL DO, HUGH K Ot Z79.899 OTHER TOWER SWITCH OPERATOR (CURRENT) DRUG THERAPY 03/20/2016 JAMEL DO, HUGH K Ot C54.1 MALIGNANT NEOPLASM OF ENDOMETRIUM 03/20/2016 HUGH MCCULLOUGH DO Ot 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 03/20/2016 HUGH MCCULLOUGH DO Ot E11.649 TYPE 2 DIABETES MELLITUS WITH HYPOGLYCEM 03/20/2016 HUGH MCCULLOUGH DO Ot E66.9 OBESITY, UNSPECIFIED 03/20/2016 HUGH MCCULLOUGH DO Ot N39.0 URINARY TRACT INFECTION, SITE NOT SPECIF 03/20/2016 HUGH MCCULLOUGH DO Ot Z79.4 TOWER SWITCH OPERATOR (CURRENT) USE OF INSULIN 03/20/2016 HUGH MCCULLOUGH DO Ot Z79.899 OTHER HALF-WAY (CURRENT) DRUG THERAPY 03/20/2016 COLTHARP MAYTE BAEZ A Ot 250.82 DIAB W OTH SPEC MANIFEST, TYPE II OR UNS 03/20/2016 COLTAYLORMAYTE CARDOSO DO Ot 459.81 VENOUS INSUFFICIENCY NOS 03/20/2016 COLARP MAYTE BAEZ Ot 707.19 ULCER OF OTHER PART OF LOWER LIMB 03/20/2016 LY MORALES SENIOR LOAN OFFICER Ot 553.1 UMBILICAL HERNIA 03/20/2016 LY MORALES SENIOR LOAN OFFICER Ot 562.10 DIVERTICULOSIS COLON (W/O MENT OF [...] 40.0-44.9, ADULT 03/20/2016 ANNETTE JIMENEZ Ot Z79.4 HALF-WAY (CURRENT) USE OF INSULIN 03/20/2016 ANNETTE JIMENEZ Ot Z79.899 OTHER TOWER SWITCH OPERATOR (CURRENT) DRUG THERAPY 03/20/2016 TELMA GRIER MD, [...] ADULT 03/20/2016 FABIÁN POSADA MD, Ot Z79.4 HALF-WAY (CURRENT) USE OF INSULIN 03/20/2016 FABIÁN POSADA MD, Ot Z79.899 OTHER TOWER SWITCH OPERATOR (CURRENT) DRUG THERAPY 03/20/2016 FABIÁN POSADA MD [...] MCCULLOUGH DO Ot E66.9 OBESITY, UNSPECIFIED 03/20/2016 HGUH MCCULLOUGH DO Ot N39.0 URINARY TRACT INFECTION, SITE NOT SPECIF 03/20/2016 HUGH MCCULLOUGH DO Ot Z79.4 TOWER SWITCH OPERATOR (CURRENT) USE OF INSULIN 03/20/2016 HUGH MCCULLOUGH DO Ot Z79.899 OTHER HALF-WAY (CURRENT) DRUG THERAPY 03/24/2016 FABIÁN POSADA MD, Ot 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 NEOPLASM OF ENDOMETRIUM 03/24/2016 FABIÁN POSADA MD, Ot E11.319 TYPE 2 DIABETES W [facility] DIABETIC RTNOP W/ 03/24/2016 FABIÁN POSADA MD Ot E66.01 MORBID (SEVERE) OBESITY DUE TO EXCESS CA 03/24/2016 FABIÁN POSADA MD, Ot 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, DEFINED IN [place] 03/24/2016 FABIÁN POSADA MD, Ot I10 ESSENTIAL (PRIMARY) HYPERTENSION 03/24/2016 FABIÁN POASDA MD Ot Z51.0 ENCOUNTER FOR ANTINEOPLASTIC RADIATION T 03/24/2016 FABIÁN POSADA MD, Ot Z68.41 BODY MASS INDEX (BMI) 40.0-44.9, ADULT 03/24/2016 FABIÁN POSADA MD, Ot Z79.4 TOWER SWITCH OPERATOR (CURRENT) USE OF INSULIN 03/24/2016 FABIÁN POSADA MD, Ot Z79.899 OTHER TOWER SWITCH OPERATOR (CURRENT) DRUG THERAPY 04/02/2016 FABIÁN POSADA MD, Ot C54.1 MALIGNANT NEOPLASM OF ENDOMETRIUM 04/02/2016 FABIÁN POSADA MD, Ot E11.319 TYPE 2 DIABETES W [facility] DIABETIC RTNOP W04/02/2016 FABIÁN POSADA MD, Ot [...] ADULT 04/02/2016 FABIÁN POSADA MD, Ot Z79.4 TOWER SWITCH OPERATOR (CURRENT) USE OF INSULIN 04/02/2016 FABIÁN POSADA MD, Ot Z79.899 OTHER HALF-WAY (CURRENT) DRUG THERAPY 04/09/2016 HUGH MCCULLOUGH DO [...] SPECIF 04/09/2016 HUGH MCCULLOUGH DO Ot Z79.4 TOWER SWITCH OPERATOR (CURRENT) USE OF INSULIN 04/09/2016 HUGH MCCULLOUGH DO Ot Z79.899 OTHER TOWER SWITCH OPERATOR (CURRENT) DRUG THERAPY 04/10/2016 FABIÁN POSADA MD, [...] ADULT 04/10/2016 FABIÁN POSADA MD Ot Z79.4 HALF-WAY (CURRENT) USE OF INSULIN 04/10/2016 FABIÁN POSADA MD, Ot Z79.899 OTHER TOWER SWITCH OPERATOR (CURRENT) DRUG THERAPY 04/10/2016 COLTHMAYTE CARDOSO DO Ot 250.82 DIAB W OTH SPEC MANIFEST, TYPE II OR UNS 04/10/2016 COLMAYTE RICHMOND DO Ot 459.81 VENOUS INSUFFICIENCY NOS 04/10/2016 COLMAYTE RICHMOND DO Ot 707.19 ULCER OF OTHER PART OF LOWER LIMB 04/10/2016 LY MORALES SENIOR LOAN OFFICER Ot 553.1 UMBILICAL HERNIA 04/10/2016 LY MORALES SENIOR LOAN OFFICER Ot 562.10 DIVERTICULOSIS COLON (W/O MENT OF [...] OBESITY DUE TO EXCESS CA 04/10/2016 ANNETTE JIMENEZ Ot 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, DEFINED IN [place] 04/10/2016 ANNETTE JIMENEZ Ot I10 ESSENTIAL (PRIMARY) HYPERTENSION 04/10/2016 ANNETTE JIMENEZP Ot Z68.41 BODY MASS INDEX (BMI) 40.0-44.9, ADULT 04/10/2016 ANNETTE JIMENEZP Ot Z79.4 HALF-WAY (CURRENT) USE OF INSULIN 04/10/2016 ANNETTE JIMENEZP Ot Z79.899 OTHER TOWER SWITCH OPERATOR (CURRENT) DRUG THERAPY 04/10/2016 TELMA GRIER MD [...] TRACT INFECTION, SITE NOT SPECIF 04/10/2016 HUGH MCCULLOUHG DO, Ot Z79.4 HALF-WAY (CURRENT) USE OF INSULIN 04/10/2016 HUGH MCCULLOUGH DO, Ot Z79.899 OTHER TOWER SWITCH OPERATOR (CURRENT) DRUG THERAPY 04/10/2016 FABIÁN POSADA MD, [...] ADULT 04/10/2016 FABIÁN POSADA MD, Ot Z79.4 HALF-WAY (CURRENT) USE OF INSULIN 04/10/2016 FABIÁN POSADA MD, Ot Z79.899 OTHER TOWER SWITCH OPERATOR (CURRENT) DRUG THERAPY 04/24/2016 KAREN MORALES DO Ot R19.7 DIARRHEA, UNSPECIFIED 05/07/2016 KAREN MORALES DO Ot R19.7 DIARRHEA, UNSPECIFIED 05/07/2016 FABIÁN POSADA MD, Ot 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 NEOPLASM OF ENDOMETRIUM 05/07/2016 FABIÁN POSADA MD, Ot E11.319 TYPE 2 DIABETES W [facility] DIABETIC RTNOP W/ 05/07/2016 FABIÁN POSADA MD, [...] ADULT 05/07/2016 FABIÁN POSADA MD Ot Z79.4 HALF-WAY (CURRENT) USE OF INSULIN 05/07/2016 FABIÁN POSADA MD, Ot Z79.899 OTHER HALF-WAY (CURRENT) DRUG THERAPY 05/07/2016 FABIÁN POSADA MD, Ot 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 NEOPLASM OF ENDOMETRIUM 05/07/2016 FABIÁN POSADA MD Ot E11.319 TYPE 2 DIABETES W [facility] DIABETIC RTNOP W05/07/2016 FABIÁN POSADA MD, [...] ADULT 05/07/2016 FABIÁN POSADA MD, Ot Z79.4 TOWER SWITCH OPERATOR (CURRENT) USE OF INSULIN 05/07/2016 FABIÁN POSADA MD, Ot Z79.899 OTHER TOWER SWITCH OPERATOR (CURRENT) DRUG THERAPY 05/09/2016 KAREN MORALES DO Ot R19.7 DIARRHEA, UNSPECIFIED 05/26/2016 KAREN MORALES DO Ot R19.7 DIARRHEA, UNSPECIFIED 06/10/2016 FABIÁN POSADA MD, Ot C54.1 MALIGNANT NEOPLASM OF ENDOMETRIUM 06/10/2016 FABIÁN POSADA MD, Ot E11.319 TYPE 2 DIABETES W [facility] DIABETIC RTNOP W/ 06/10/2016 FABIÁN POSADA [...] ADULT 06/10/2016 FABIÁN POSADA MD, Ot Z79.4 HALF-WAY (CURRENT) USE OF INSULIN 06/10/2016 FABIÁN POSADA MD, Ot Z79.899 OTHER TOWER SWITCH OPERATOR (CURRENT) DRUG THERAPY 06/13/2016 KAREN MORALES DO [...] ADULT 06/23/2016 FABIÁN POSADA MD, Ot Z79.4 TOWER SWITCH OPERATOR (CURRENT) USE OF INSULIN 06/23/2016 FABIÁN POSADA MD, Ot Z79.899 OTHER TOWER SWITCH OPERATOR (CURRENT) DRUG THERAPY 06/23/2016 KAREN MORALES DO Ot R30.0 DYSURIA 07/10/2016 COLYI BAEZ MAYTE A Ot 250.82 DIAB W OTH SPEC MANIFEST, TYPE II OR UNS 07/10/2016 COLYI BAEZ MAYTE A Ot 459.81 VENOUS INSUFFICIENCY NOS 07/10/2016 IZA BAEZ MAYTE A Ot 707.19 ULCER OF OTHER PART OF LOWER LIMB 07/10/2016 LY MORALES SENIOR LOAN OFFICER Ot 553.1 UMBILICAL HERNIA 07/10/2016 LY MORALES SENIOR LOAN OFFICER Ot 562.10 DIVERTICULOSIS COLON (W/O MENT OF [...] JIMENEZ Ot E11.319 TYPE 2 DIABETES W [facility] DIABETIC RTNOP W/ 07/10/2016 JIMENEZANNETTE Krueger DEXTER Ot E66.01 MORBID (SEVERE) OBESITY DUE TO EXCESS CA 07/10/2016 ANNETTE JIMENEZ DEXTER Ot 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, DEFINED IN [place] 07/10/2016 JIMENEZANNETTE Krueger DEXTER Ot I10 ESSENTIAL (PRIMARY) HYPERTENSION 07/10/2016 JIMENEZANNETTE Krueger DEXTER Ot Z68.41 BODY MASS INDEX (BMI) 40.0-44.9, ADULT 07/10/2016 JIMENEZANNETTE Krueger DEXTER Ot Z79.4 TOWER SWITCH OPERATOR (CURRENT) USE OF INSULIN 07/10/2016 JIMENEZANNETTE Krueger DEXTER Ot Z79.899 OTHER HALF-WAY (CURRENT) DRUG THERAPY 07/10/2016 TELMA GRIER MD, [...] MD Ot E11.319 TYPE 2 DIABETES W [facility] DIABETIC RTNOP W/ 07/10/2016 FABIÁN POSADA [...] ADULT 07/10/2016 FABIÁN POSADA MD Ot Z79.4 HALF-WAY (CURRENT) USE OF INSULIN 07/10/2016 FABIÁN POSADA MD, Ot Z79.899 OTHER TOWER SWITCH OPERATOR (CURRENT) DRUG THERAPY 07/10/2016 KAREN MORALES DO [...] ADULT 07/11/2016 FABIÁN POSADA MD, Ot Z79.4 HALF-WAY (CURRENT) USE OF INSULIN 07/11/2016 FABIÁN POSADA MD, Ot Z79.899 OTHER TOWER SWITCH OPERATOR (CURRENT) DRUG THERAPY 08/01/2016 FABIÁN POSADA MD, [...] ADULT 08/13/2016 FABIÁN POSADA MD, Ot Z79.4 TOWER SWITCH OPERATOR (CURRENT) USE OF INSULIN 08/13/2016 FABIÁN POSADA MD, Ot Z79.899 OTHER HALF-WAY (CURRENT) DRUG THERAPY 09/11/2016 FABIÁN POSADA MD, [...] ADULT 09/11/2016 FABIÁN POSADA MD, Ot Z79.4 HALF-WAY (CURRENT) USE OF INSULIN 09/11/2016 FABIÁN POSADA MD, Ot Z79.899 OTHER TOWER SWITCH OPERATOR (CURRENT) DRUG THERAPY 10/08/2016 FABIÁN POSADA MD, [...] ADULT 10/08/2016 FABIÁN POSADA MD Ot Z79.4 HALF-WAY (CURRENT) USE OF INSULIN 10/08/2016 FABIÁN POSADA MD, Ot Z79.899 OTHER HALF-WAY (CURRENT) DRUG THERAPY 10/09/2016 FABIÁN POSADA MD, [...] ADULT 10/09/2016 FABIÁN POSADA MD, Ot Z79.4 TOWER SWITCH OPERATOR (CURRENT) USE OF INSULIN 10/09/2016 FABIÁN POSADA MD, Ot Z79.899 OTHER HALF-WAY (CURRENT) DRUG THERAPY 10/10/2016 FABIÁN POSADA MD, [...] ADULT 10/10/2016 FABIÁN POSADA MD, Ot Z79.4 TOWER SWITCH OPERATOR (CURRENT) USE OF INSULIN 10/10/2016 FABIÁN POSADA MD, Ot Z79.899 OTHER HALF-WAY (CURRENT) DRUG THERAPY 10/14/2016 FABIÁN POSADA MD, [...] ADULT 10/14/2016 FABIÁN POSADA MD, Ot Z79.4 TOWER SWITCH OPERATOR (CURRENT) USE OF INSULIN 10/14/2016 FABIÁN POSADA MD, Ot Z79.899 OTHER HALF-WAY (CURRENT) DRUG THERAPY 12/04/2016 FABIÁN POSADA MD, [...] ADULT 12/04/2016 FABIÁN POSADA MD, Ot Z79.4 TOWER SWITCH OPERATOR (CURRENT) USE OF INSULIN 12/04/2016 FABIÁN POSADA MD, Ot Z79.899 OTHER TOWER SWITCH OPERATOR (CURRENT) DRUG THERAPY 01/11/2017 FABIÁN POSADA MD, [...] ADULT 01/11/2017 FABIÁN POSADA MD, Ot Z79.4 HALF-WAY (CURRENT) USE OF INSULIN 01/11/2017 FABIÁN POSADA MD, Ot Z79.899 OTHER HALF-WAY (CURRENT) DRUG THERAPY 01/12/2017 FABIÁN POSADA MD, Ot C54.1 MALIGNANT NEOPLASM OF ENDOMETRIUM 01/12/2017 FABIÁN POSADA MD, Ot 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 01/12/2017 FABIÁN POSADA MD, Ot E11.319 TYPE 2 DIABETES W [facility] DIABETIC RTNOP W/ 01/12/2017 FABIÁN POSADA MD, [...] ADULT 01/12/2017 FABIÁN POSADA MD, Ot Z79.4 HALF-WAY (CURRENT) USE OF INSULIN 01/12/2017 FABIÁN POSADA MD, Ot Z79.899 OTHER TOWER SWITCH OPERATOR (CURRENT) DRUG THERAPY 01/13/2017 FABIÁN POSADA MD, Ot C54.1 MALIGNANT NEOPLASM OF ENDOMETRIUM 01/13/2017 FABIÁN POSADA MD, Ot E11.319 TYPE 2 DIABETES W [facility] DIABETIC RTNOP W/ 01/13/2017 FABIÁN POSADA [...] ADULT 01/13/2017 FABIÁN POSADA MD, Ot Z79.4 HALF-WAY (CURRENT) USE OF INSULIN 01/13/2017 FABIÁN POSADA MD, Ot Z79.899 OTHER HALF-WAY (CURRENT) DRUG THERAPY 01/14/2017 FABIÁN POSADA MD, Ot C54.1 MALIGNANT NEOPLASM OF ENDOMETRIUM 01/14/2017 FABIÁN POSADA MD, Ot 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 01/14/2017 FABIÁN POSADA MD, Ot E11.319 TYPE 2 DIABETES W [facility] DIABETIC RTNOP W/ 01/14/2017 FABIÁN POSADA MD, Ot E66.01 MORBID (SEVERE) OBESITY DUE TO EXCESS CA 01/14/2017 FABIÁN POSAAD MD, Ot 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, DEFINED IN [...] ADULT 01/14/2017 FABIÁN POSADA MD, Ot Z79.4 HALF-WAY (CURRENT) USE OF INSULIN 01/14/2017 FABIÁN POSADA MD, Ot Z79.899 OTHER HALF-WAY (CURRENT) DRUG THERAPY 02/05/2017 COLTHARP MAYTE BAEZ A Ot 250.82 DIAB W OTH SPEC MANIFEST, TYPE II OR UNS 02/05/2017 COLTHMAYTE CARDOSO DO Ot 459.81 VENOUS INSUFFICIENCY NOS 02/05/2017 COLMAYTE CARDOSO DO Ot 707.19 ULCER OF OTHER PART OF LOWER LIMB 02/05/2017 LY MORALES SENIOR LOAN OFFICER Ot 553.1 UMBILICAL HERNIA 02/05/2017 LY MORALES SENIOR LOAN OFFICER Ot 562.10 DIVERTICULOSIS COLON (W/O MENT OF [...] JIMENEZ Ot E11.319 TYPE 2 DIABETES W [facility] DIABETIC RTNOP W/ 02/05/2017 ANNETTE JIMENEZ Ot E66.01 MORBID (SEVERE) OBESITY DUE TO EXCESS CA 02/05/2017 ANNETTE JIMENEZP Ot 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, DEFINED IN [place] 02/05/2017 ANNETTE JIMENEZ SENIOR LOAN OFFICER Ot I10 ESSENTIAL (PRIMARY) HYPERTENSION 02/05/2017 ANNETTE JIMENEZP Ot Z68.41 BODY MASS INDEX (BMI) 40.0-44.9, ADULT 02/05/2017 ANNETTE JIMENEZP Ot Z79.4 HALF-WAY (CURRENT) USE OF INSULIN 02/05/2017 ANNETTE JIMENEZ SENIOR LOAN OFFICER Ot Z79.899 OTHER TOWER SWITCH OPERATOR (CURRENT) DRUG THERAPY 02/05/2017 TELMA GRIER MD, [...] MD Ot E11.319 TYPE 2 DIABETES W [facility] DIABETIC RTNOP W/ 02/05/2017 FABIÁN POSADA [...] ADULT 02/05/2017 FABIÁN POSADA MD, Ot Z79.4 HALF-WAY (CURRENT) USE OF INSULIN 02/05/2017 FABIÁN POSADA MD, Ot Z79.899 OTHER HALF-WAY (CURRENT) DRUG THERAPY 02/09/2017 FABIÁN POSADA MD, [...] PART OF LOWER LIMB 02/19/2017 LY MORALES SENIOR LOAN OFFICER Ot 553.1 UMBILICAL HERNIA 02/19/2017 LY MORALES SENIOR LOAN OFFICER Ot 562.10 DIVERTICULOSIS COLON (W/O MENT OF [...] DEXTER Ot E11.319 TYPE 2 DIABETES W [facility] DIABETIC RTNOP W/ 02/19/2017 JIMENEZANNETTE Krueger DEXTER Ot E66.01 MORBID (SEVERE) OBESITY DUE TO EXCESS CA 02/19/2017 JOHN JIMENEZNENA Krueger DEXTER Ot 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, DEFINED IN [place] 02/19/2017 ANNETTE JIMENEZ Ot I10 ESSENTIAL (PRIMARY) HYPERTENSION 02/19/2017 TONY JOHNNENA Krueger DEXTER Ot Z68.41 BODY MASS INDEX (BMI) 40.0-44.9, ADULT 02/19/2017 JOHN JIMENEZNENA Pati RENTERIA Ot Z79.4 HALF-WAY (CURRENT) USE OF INSULIN 02/19/2017 JOHN JIMENEZNENA Pati RENTERIA Ot Z79.899 OTHER HALF-WAY (CURRENT) DRUG THERAPY 02/19/2017 TELMA GRIER MD, [...] MD Ot E11.319 TYPE 2 DIABETES W [facility] DIABETIC RTNOP W02/19/2017 FABIÁN POSADA MD [...] ADULT 02/19/2017 FABIÁN POSADA MD, Ot Z79.4 HALF-WAY (CURRENT) USE OF INSULIN 02/19/2017 FABIÁN POSADA MD, Ot Z79.899 OTHER HALF-WAY (CURRENT) DRUG THERAPY 02/19/2017 FABIÁN POSADA MD, [...] ADULT 02/21/2017 TELMA GRIER MD, Ot Z79.4 TOWER SWITCH OPERATOR (CURRENT) USE OF INSULIN 02/21/2017 TELMA GRIER [...] ADULT 02/21/2017 KIDO MD, TAKAAKI Ot Z79.4 TOWER SWITCH OPERATOR (CURRENT) USE OF INSULIN 02/21/2017 TELMA GRIER [...] ADULT 02/25/2017 TELMA GRIER MD, Ot Z79.4 HALF-WAY (CURRENT) USE OF INSULIN 02/25/2017 TELMA GRIER [...] ADULT 02/27/2017 TELMA GRIER MD, Ot Z79.4 HALF-WAY (CURRENT) USE OF INSULIN 02/27/2017 TELMA GRIER [...] ADULT 03/06/2017 FABIÁN POSADA MD, Ot Z79.4 HALF-WAY (CURRENT) USE OF INSULIN 03/06/2017 FABIÁN POSADA MD, Ot Z79.899 OTHER TOWER SWITCH OPERATOR (CURRENT) DRUG THERAPY 03/25/2017 YANA HODGSON MD, [...] INDEX (BMI) 40.0-44.9, ADULT 04/12/2017 FABIÁN POSADA MD Ot Z79.4 HALF-WAY (CURRENT) USE OF INSULIN 04/12/2017 FABIÁN POSADA MD, Ot Z79.899 OTHER HALF-WAY (CURRENT) DRUG THERAPY 04/13/2017 FABIÁN POSADA MD Ot Z12.31 ENCNTR SCREEN MAMMOGRAM FOR MALIGNANT NE 04/13/2017 COLTHARP DO, MAYTE A Ot 250.82 DIAB W OTH SPEC MANIFEST, TYPE II OR UNS 04/13/2017 COLTHARP DO, MAYTE A Ot 459.81 VENOUS INSUFFICIENCY NOS 04/13/2017 COLTHARP DO MAYTE A Ot 707.19 ULCER OF OTHER PART OF LOWER LIMB 04/13/2017 LY MORALES SENIOR LOAN OFFICER Ot 553.1 UMBILICAL HERNIA 04/13/2017 LY MORALES SENIOR LOAN OFFICER Ot 562.10 DIVERTICULOSIS COLON (W/O MENT OF [...] 40.0-44.9, ADULT 04/13/2017 ANNETTE JIMENEZ Ot Z79.4 TOWER SWITCH OPERATOR (CURRENT) USE OF INSULIN 04/13/2017 ANNETTE JIMENEZ Ot Z79.899 OTHER TOWER SWITCH OPERATOR (CURRENT) DRUG THERAPY 04/13/2017 TELMA GRIER MD, [...] 40.0-44.9, ADULT 04/13/2017 NII BORDEN Ot Z79.4 TOWER SWITCH OPERATOR (CURRENT) USE OF INSULIN 04/13/2017 NII BORDEN Ot Z79.899 OTHER HALF-WAY (CURRENT) DRUG THERAPY 04/13/2017 FABIÁN POSADA MD, [...] ADULT 04/13/2017 FABIÁN POSADA MD Ot Z79.4 TOWER SWITCH OPERATOR (CURRENT) USE OF INSULIN 04/13/2017 ALBINO FREY, FABIÁN Haines Ot Z79.899 OTHER TOWER SWITCH OPERATOR (CURRENT) DRUG THERAPY 04/15/2017 COLTHARP MAYTE Garibay Ot 250.82 DIAB W OTH SPEC MANIFEST, TYPE II OR UNS 04/15/2017 COLYI BAEZ MAYTE Garibay Ot 459.81 VENOUS INSUFFICIENCY NOS 04/15/2017 COLTAYLROARP DO MAYTE Garibay Ot 707.19 ULCER OF OTHER PART OF LOWER LIMB 04/15/2017 LY MORALES SENIOR LOAN OFFICER Ot 553.1 UMBILICAL HERNIA 04/15/2017 LY MORALES SENIOR LOAN OFFICER Ot 562.10 DIVERTICULOSIS COLON (W/O MENT OF [...] 40.0-44.9, ADULT 04/15/2017 ANNETTE JIMENEZ Ot Z79.4 TOWER SWITCH OPERATOR (CURRENT) USE OF INSULIN 04/15/2017 ANNETTE JIMENEZ Ot Z79.899 OTHER TOWER SWITCH OPERATOR (CURRENT) DRUG THERAPY 04/15/2017 TELMA GRIER MD [...] 40.0-44.9, ADULT 04/15/2017 NII BORDEN Ot Z79.4 TOWER SWITCH OPERATOR (CURRENT) USE OF INSULIN 04/15/2017 NII BORDEN Ot Z79.899 OTHER HALF-WAY (CURRENT) DRUG THERAPY 04/16/2017 FABIÁN POSADA MD [...] 40.0-44.9, ADULT 04/17/2017 NII BORDEN Ot Z79.4 TOWER SWITCH OPERATOR (CURRENT) USE OF INSULIN 04/17/2017 NII BORDEN Ot Z79.899 OTHER TOWER SWITCH OPERATOR (CURRENT) DRUG THERAPY 04/20/2017 FABIÁN POSADA MD [...] 04/22/2017 TELMA GRIER MD Ot Z79.899 OTHER TOWER SWITCH OPERATOR (CURRENT) DRUG THERAPY 04/22/2017 TELMA GRIER MD [...] 04/28/2017 TELMA GRIER MD, Ot Z79.899 OTHER TOWER SWITCH OPERATOR (CURRENT) DRUG THERAPY 04/28/2017 TELMA GRIER MD, Ot Z85.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 OF FE 04/28/2017 TELMA GRIER MD, Ot Z92.3 PERSONAL HISTORY [...] MAMMOGRAM FOR MALIGNANT NE 05/11/2017 ANNETTE JIMENEZ SENIOR LOAN OFFICER Ot R92.8 OTH ABN AND INCONCLUSIVE FINDINGS ON DX 05/14/2017 ANNETTE JIMENEZ SENIOR LOAN OFFICER Ot C50.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 05/14/2017 ANNETTE JIMENEZ SENIOR LOAN OFFICER Ot 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 05/15/2017 ANNETTE JIMENEZ SENIOR LOAN OFFICER Ot 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 05/15/2017 ANNETTE JIMENEZ SENIOR LOAN OFFICER Ot N63 UNSPECIFIED LUMP IN BREAST 05/20/2017 ANNETTE JIMENEZ SENIOR LOAN OFFICER Ot N63 UNSPECIFIED LUMP IN BREAST 05/20/2017 NOBLE STILL BAT PERSON Ot K57.30 DVRTCLOS OF LG INT W/O PERFORATION OR AB 05/20/2017 NOBLE STILL BAT PERSON Ot K63.89 OTHER SPECIFIED DISEASES OF INTESTINE 05/20/2017 NOBLE STILL BAT PERSON Ot Z85.42 PERSONAL HISTORY OF MALIGNANT NEOPLASM O 05/20/2017 NOBLE STILL BAT PERSON Ot Z90.49 ACQUIRED ABSENCE OF OTHER SPECIFIED PART 05/20/2017 NOBLE STILL BAT PERSON Ot Z90.710 ACQUIRED ABSENCE OF BOTH CERVIX AND UTER 05/25/2017 ANNETTE JIMENEZ SENIOR LOAN OFFICER Ot C50.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 05/25/2017 ANNETTE JIMENEZ SENIOR LOAN OFFICER Ot K63.9 DISEASE OF INTESTINE, UNSPECIFIED 05/29/2017 SANDRA FREY, LEILA Ot R92.8 OTH ABN AND INCONCLUSIVE FINDINGS ON DX 06/05/2017 ANNETTE JIMENEZ SENIOR LOAN OFFICER Ot N63 UNSPECIFIED LUMP IN BREAST 06/10/2017 ANNETTE JIMENEZ SENIOR LOAN OFFICER Ot C50.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 06/10/2017 ANNETTE JIMENEZ SENIOR LOAN OFFICER Ot K63.9 DISEASE OF INTESTINE, UNSPECIFIED 06/13/2017 [...] ADULT 06/13/2017 SUHASELVIN ORTEZFERMIN Kaur Ot Z79.4 HALF-WAY (CURRENT) USE OF INSULIN 06/13/2017 NII BORDEN N Ot Z79.899 OTHER TOWER SWITCH OPERATOR (CURRENT) DRUG THERAPY 06/18/2017 SUHA NII N [...] 40.0-44.9, ADULT 06/18/2017 NII BORDEN Ot Z79.4 HALF-WAY (CURRENT) USE OF INSULIN 06/18/2017 NII BORDEN Ot Z79.899 OTHER HALF-WAY (CURRENT) DRUG THERAPY 06/26/2017 KAREN MORAELS DO J Ot R13.10 DYSPHAGIA, UNSPECIFIED 06/26/2017 [...] PART OF LOWER LIMB 06/29/2017 LY MORALES SENIOR LOAN OFFICER Ot 553.1 UMBILICAL HERNIA 06/29/2017 LY MORALES SENIOR LOAN OFFICER Ot 562.10 DIVERTICULOSIS COLON (W/O MENT OF HEMORR 06/29/2017 YANA BYRNES DO Ot 625.8 FEM GENITAL SYMPTOMS NEC 06/29/2017 YANA BYRNES DO Ot 627.1 POSTMENOPAUSAL BLEEDING 06/29/2017 ALBINO FREY, AFBIÁN Haines Ot 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 06/29/2017 ALBINO FREY, FABIÁN Haines Ot C54.1 MALIGNANT NEOPLASM OF ENDOMETRIUM 06/29/2017 ANNETTE JIMENEZ SENIOR LOAN OFFICER Ot C54.1 MALIGNANT NEOPLASM OF ENDOMETRIUM 06/29/2017 ANNETTE JIMENEZ SENIOR LOAN OFFICER Ot E11.319 TYPE 2 DIABETES W UNSP DIABETIC RTNOP W/ 06/29/2017 ANNETTE JIMENEZ SENIOR LOAN OFFICER Ot E66.01 MORBID (SEVERE) OBESITY DUE TO EXCESS CA 06/29/2017 ANNETTE JIMENEZ SENIOR LOAN OFFICER Ot 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, DEFINED IN [place] 06/29/2017 ANNETTE JIMENEZ SENIOR LOAN OFFICER Ot I10 ESSENTIAL (PRIMARY) HYPERTENSION 06/29/2017 ANNETTE JIMENEZ SENIOR LOAN OFFICER Ot Z68.41 BODY MASS INDEX (BMI) 40.0-44.9, ADULT 06/29/2017 ANNETTE JIMENEZP Ot Z79.4 TOWER SWITCH OPERATOR (CURRENT) USE OF INSULIN 06/29/2017 ANNETTE JIMENEZP Ot Z79.899 OTHER HALF-WAY (CURRENT) DRUG THERAPY 06/29/2017 TELMA GRIER MD, [...] Ot R63.4 ABNORMAL WEIGHT LOSS 06/29/2017 FABIÁN POASDA MD Ot Z12.31 ENCNTR SCREEN MAMMOGRAM FOR MALIGNANT NE 06/29/2017 ALBINO MD, FABIÁN K Ot Z12.31 ENCNTR SCREEN MAMMOGRAM FOR MALIGNANT NE 06/29/2017 CHEKONOBLE BAT PERSON Ot K57.30 DVRTCLOS OF LG INT W/O PERFORATION OR AB 06/29/2017 CHEKOCRISTYIN L BAT PERSON Ot K63.89 OTHER SPECIFIED DISEASES OF INTESTINE 06/29/2017 CHEKOCRISTYIN L BAT PERSON Ot Z85.42 PERSONAL HISTORY OF MALIGNANT NEOPLASM O 06/29/2017 CHEKOCRISTYIN L BAT PERSON Ot Z90.49 ACQUIRED ABSENCE OF OTHER SPECIFIED PART 06/29/2017 CHEKOCRISTYIN L BAT PERSON Ot Z90.710 ACQUIRED ABSENCE OF BOTH CERVIX AND UTER 06/29/2017 SANDRA FREY, LEILA Ot R92.8 OTH ABN AND INCONCLUSIVE FINDINGS ON DX 06/29/2017 ANNETTE JIMENEZ SENIOR LOAN OFFICER Ot N63 UNSPECIFIED LUMP IN BREAST 06/29/2017 ANNETTE JIMENEZ SENIOR LOAN OFFICER Ot C50.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 06/29/2017 ANNETTE JIMENEZ SENIOR LOAN OFFICER Ot K63.9 DISEASE OF INTESTINE, UNSPECIFIED 06/29/2017 ANNETTE JIMENEZ SENIOR LOAN OFFICER Ot 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 06/29/2017 ANNETTE JIMENEZ SENIOR LOAN OFFICER Ot C54.1 MALIGNANT NEOPLASM OF ENDOMETRIUM 06/29/2017 ANNETTE JIMENEZ SENIOR LOAN OFFICER Ot Z78.0 ASYMPTOMATIC MENOPAUSAL STATE 06/29/2017 NII [...] INDEX (BMI) 40.0-44.9, ADULT 06/29/2017 NII BORDEN Natasha Ot Z79.4 TOWER SWITCH OPERATOR (CURRENT) USE OF INSULIN 06/29/2017 SUHA NII Kaur Ot Z79.899 OTHER HALF-WAY (CURRENT) DRUG THERAPY 06/29/2017 KAREN MORALES DO Ot R13.14 DYSPHAGIA, PHARYNGOESOPHAGEAL PHASE 07/16/2017 ANNETTE JIMENEZP Ot 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 07/16/2017 ANNETTE JIMENEZ SENIOR LOAN OFFICER Ot C54.1 MALIGNANT NEOPLASM OF ENDOMETRIUM 07/16/2017 [...] ADULT 08/24/2017 RICHMOND PADILLA MD Ot Z79.4 HALF-WAY (CURRENT) USE OF INSULIN 08/24/2017 RICHMOND PADILLA MD Ot Z79.899 OTHER HALF-WAY (CURRENT) DRUG THERAPY 08/24/2017 RICHMOND PADILLA MD [...] ADULT 10/06/2017 RICHMOND PADILLA MD Ot Z79.4 HALF-WAY (CURRENT) USE OF INSULIN 10/06/2017 RICHMOND PADILLA MD Ot Z79.899 OTHER HALF-WAY (CURRENT) DRUG THERAPY 10/06/2017 RICHMOND PADILLA MD [...] ADULT 11/19/2017 RICHMOND PADILLA MD Ot Z79.4 TOWER SWITCH OPERATOR (CURRENT) USE OF INSULIN 11/19/2017 RICHMOND PADILLA MD Ot Z79.899 OTHER HALF-WAY (CURRENT) DRUG THERAPY 11/19/2017 RICHMOND PADILLA MD Ot Z90.710 ACQUIRED ABSENCE OF BOTH CERVIX AND UTER 11/20/2017 RICHMOND PADILLA MD Ot 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 11/20/2017 RICHMODN PADILLA MD Ot C54.1 MALIGNANT NEOPLASM OF [...] ADULT 11/20/2017 RICHMOND PADILLA MD Ot Z79.4 HALF-WAY (CURRENT) USE OF INSULIN 11/20/2017 RICHMOND PADILLA MD Ot Z79.899 OTHER TOWER SWITCH OPERATOR (CURRENT) DRUG THERAPY 11/20/2017 RICHMOND PADILLA MD [...] [ER+] 11/27/2017 TELMA GRIER MD, Ot Z79.4 HALF-WAY (CURRENT) USE OF INSULIN 11/27/2017 TELMA GRIER MD Ot Z79.899 OTHER HALF-WAY (CURRENT) DRUG THERAPY 11/27/2017 TELMA GRIER MD, [...] [ER+] 11/30/2017 TELMA GRIER MD, Ot Z79.4 TOWER SWITCH OPERATOR (CURRENT) USE OF INSULIN 11/30/2017 TELMA GRIER MD, Ot Z79.899 OTHER TOWER SWITCH OPERATOR (CURRENT) DRUG THERAPY 11/30/2017 TELMA GRIER MD, [...] ADULT 12/09/2017 RICHMOND PADILLA MD Ot Z79.4 HALF-WAY (CURRENT) USE OF INSULIN 12/09/2017 RICHMOND PADILLA MD Ot Z79.899 OTHER TOWER SWITCH OPERATOR (CURRENT) DRUG THERAPY 12/09/2017 RICHMOND PADILLA MD [...] ADULT 12/11/2017 RICHMOND PADILLA MD, Ot Z79.4 TOWER SWITCH OPERATOR (CURRENT) USE OF INSULIN 12/11/2017 RICHMOND PADILLA MD, Ot Z79.899 OTHER TOWER SWITCH OPERATOR (CURRENT) DRUG THERAPY 12/11/2017 RICHMOND PADILLA MD, [...] [ER+] 12/15/2017 TELMA GRIER MD, Ot Z79.4 TOWER SWITCH OPERATOR (CURRENT) USE OF INSULIN 12/15/2017 TELMA GRIER MD, Ot Z79.899 OTHER TOWER SWITCH OPERATOR (CURRENT) DRUG THERAPY 12/15/2017 TELMA GRIER MD, [...] NON-PRS CHRONIC ULCER SKIN/ SITES LIMITE 01/06/2018 RICMHOND PADILLA MD, Ot 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 OF [...] ADULT 01/06/2018 RICHMOND PADILLA MD, Ot Z79.4 HALF-WAY (CURRENT) USE OF INSULIN 01/06/2018 RICHMOND PADILLA MD, Ot Z79.899 OTHER HALF-WAY (CURRENT) DRUG THERAPY 01/06/2018 RICHMOND PADILLA MD, [...] ADULT 02/18/2018 RICHMOND PADILLA MD, Ot Z79.4 TOWER SWITCH OPERATOR (CURRENT) USE OF INSULIN 02/18/2018 RICHMOND PADILLA MD, Ot Z79.899 OTHER HALF-WAY (CURRENT) DRUG THERAPY 02/18/2018 RICHMOND PADILLA MD, [...] NEOPLM OF UPPER-OUTER QUADRANT OF 03/10/2018 RICHMOND PADILLA MD, Ot C54.1 MALIGNANT NEOPLASM [...] PADILLA MD, Ot R53.81 OTHER MALAISE 03/10/2018 RICMHOND PADILLA MD, Ot 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+] 03/10/2018 RICHMOND PADILLA MD, Ot Z68.33 BODY MASS INDEX (BMI) 33.0-33.9, ADULT 03/10/2018 RICHMOND PADILLA MD, Ot Z79.4 HALF-WAY (CURRENT) USE OF INSULIN 03/10/2018 RICHMOND PADILLA MD, Ot Z79.899 OTHER TOWER SWITCH OPERATOR (CURRENT) DRUG THERAPY 03/10/2018 RICHMOND PADILLA MD, [...] ADULT 03/11/2018 RICHMOND PADILLA MD Ot Z79.4 HALF-WAY (CURRENT) USE OF INSULIN 03/11/2018 RICHMOND PADILLA MD Ot Z79.899 OTHER HALF-WAY (CURRENT) DRUG THERAPY 03/11/2018 RICHMOND PADILLA MD Ot Z90.710 ACQUIRED ABSENCE OF BOTH CERVIX AND UTER 03/19/2018 RICHMOND PADILLA MD Ot 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 03/19/2018 RIHCMOND PADILLA MD Ot C54.1 MALIGNANT NEOPLASM OF [...] ADULT 03/19/2018 RICHMOND PADILLA MD Ot Z79.4 HALF-WAY (CURRENT) USE OF INSULIN 03/19/2018 RICHMOND PADILLA MD Ot Z79.899 OTHER HALF-WAY (CURRENT) DRUG THERAPY 03/19/2018 RICHMOND PADILLA MD [...] PADILLA MD Ot E66.9 OBESITY, UNSPECIFIED 05/04/2018 RICHMNOD PADILLA MD Ot I10 ESSENTIAL (PRIMARY) HYPERTENSION 05/04/2018 RICHMOND PADILLA MD, Ot K63.9 DISEASE OF INTESTINE, UNSPECIFIED 05/04/2018 RICHMOND PADILLA MD Ot R53.81 OTHER MALAISE 05/04/2018 RICHMOND PADILLA MD Ot 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+] 05/04/2018 RICHMOND PADILLA MD, Ot Z68.33 BODY MASS INDEX (BMI) 33.0-33.9, ADULT 05/04/2018 RICHMOND PADILLA MD Ot Z79.4 HALF-WAY (CURRENT) USE OF INSULIN 05/04/2018 RICHMOND PADILLA MD, Ot Z79.899 OTHER HALF-WAY (CURRENT) DRUG THERAPY 05/04/2018 RICHMOND PADILLA MD [...] INITIAL 05/28/2018 LESIA MERAZ MD Ot Y92.[address] [facility] [address] IN [facility] NON-[facility] (PRIVATE 05/28/2018 LESIA MERAZ MD, Ot Z68.35 BODY MASS INDEX (BMI) 35.0-35.9, ADULT 05/28/2018 LESIA MERAZ MD Ot Z79.4 HALF-WAY (CURRENT) USE OF INSULIN 05/28/2018 LESIA MERAZ [...] OF COMP OF PREG, CHLDBR 05/28/2018 LESIA MERAZ MD, Ot Z88.0 ALLERGY STATUS TO PENICILLIN [...] MERAZ MD Ot Y92.[address] IN [facility] NON-INST[facility] (PRIVATE 05/31/2018 LESIA MERAZ MD, Ot Z68.35 BODY MASS INDEX (BMI) 35.0-35.9, ADULT 05/31/2018 LESIA MERAZ MD, Ot Z79.4 TOWER SWITCH OPERATOR (CURRENT) USE OF INSULIN 05/31/2018 LESIA MERAZ [...] C54.1 MALIGNANT NEOPLASM OF ENDOMETRIUM 06/16/2018 RICHMOND PAIDLLA MD Ot E11.319 TYPE 2 DIABETES W UNSP DIABETIC RTNOP W/ 06/16/2018 RICHMOND PADILLA MD Ot E11.40 TYPE 2 DIABETES MELLITUS WITH DIABETIC N 06/16/2018 RICHMOND PADILLA MD Ot E66.9 OBESITY, UNSPECIFIED 06/16/2018 [...] ADULT 06/16/2018 RICHMOND PADILLA MD Ot Z79.4 HALF-WAY (CURRENT) USE OF INSULIN 06/16/2018 RICHMOND PADILLA MD Ot Z79.899 OTHER HALF-WAY (CURRENT) DRUG THERAPY 06/16/2018 RICHMOND PADILLA MD Ot Z90.710 ACQUIRED ABSENCE OF BOTH CERVIX AND UTER 06/16/2018 [facility] 250.82 DIAB W OTH SPEC MANIFEST, TYPE II OR UNS 06/16/2018 [facility] MAYTE BAEZ A Ot 459.81 VENOUS INSUFFICIENCY NOS 06/16/2018 [facility] MAY[facility] B[facility] A Ot 707.19 ULCER OF OTHER PART OF LOWER LIMB 06/16/2018 LY MORALES SENIOR LOAN OFFICER Ot 553.1 UMBILICAL HERNIA 06/16/2018 LY MORALES SENIOR LOAN OFFICER Ot 562.10 DIVERTICULOSIS COLON (W/O MENT OF HEMORR 06/16/2018 YANA BYRNES DO Ot 625.8 FEM GENITAL SYMPTOMS NEC 06/16/2018 YANA BYRNES DO Ot 627.1 POSTMENOPAUSAL BLEEDING 06/16/2018 FABIÁN POSADA MD Ot 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 06/16/2018 FABIÁN POSADA MD Ot C54.1 MALIGNANT NEOPLASM OF ENDOMETRIUM 06/16/2018 JIMENEZANNETTE Krueger DEXTER Ot C54.1 MALIGNANT NEOPLASM OF ENDOMETRIUM 06/16/2018 JIMENEZANNETTE Krueger SENIOR LOAN OFFICER Ot E11.319 TYPE 2 DIABETES W UNSP DIABETIC RTNOP W/ 06/16/2018 ANNETTE JIMENEZ SENIOR LOAN OFFICER Ot E66.01 MORBID (SEVERE) OBESITY DUE TO EXCESS CA 06/16/2018 ANNETTE JIMENEZ SENIOR LOAN OFFICER Ot 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, [place]FINED IN [place] 06/16/2018 JOHN JIMENEZNENA Krueger SENIOR LOAN OFFICER Ot I10 ESSENTIAL (PRIMARY) HYPERTENSION 06/16/2018 TONY ANNETTE Krueger SENIOR LOAN OFFICER Ot Z68.41 BODY MASS INDEX (BMI) 40.0-44.9, ADULT 06/16/2018 TONY ANNETTE Krueger SENIOR LOAN OFFICER Ot Z79.4 TOWER SWITCH OPERATOR (CURRENT) USE OF INSULIN 06/16/2018 TONY ANNETTE Krueger SENIOR LOAN OFFICER Ot Z79.899 OTHER TOWER SWITCH OPERATOR (CURRENT) DRUG THERAPY 06/16/2018 TELMA GRIER MD, [...] MAMMOGRAM FOR MALIGNANT NE 06/16/2018 CHEKONOBLE L BAT PERSON Ot K57.30 DVRTCLOS OF LG INT W/O PERFORATION OR AB 06/16/2018 CHEKOCRISTYIN L BAT PERSON Ot K63.89 OTHER SPECIFIED DISEASES OF INTESTINE 06/16/2018 CHEKOCRISTY RAOIN L BAT PERSON Ot Z85.42 PERSONAL HISTORY OF MALIGNANT NEOPLASM O 06/16/2018 CHEKOCRISTY RAOIN L BAT PERSON Ot Z90.49 ACQUIRED ABSENCE OF OTHER SPECIFIED PART 06/16/2018 CHEKOCRISTYIN L BAT PERSON Ot Z90.710 ACQUIRED ABSENCE OF BOTH CERVIX AND UTER 06/16/2018 SANDRA FREY, LEILA Ot R92.8 OTH ABN AND INCONCLUSIVE FINDINGS ON DX 06/16/2018 ANNETTE JIMENEZ SENIOR LOAN OFFICER Ot N63 UNSPECIFIED LUMP IN BREAST 06/16/2018 ANNETTE JIMENEZ SENIOR LOAN OFFICER Ot C50.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 06/16/2018 ANNETTE JIMENEZ SENIOR LOAN OFFICER Ot K63.9 DISEASE OF INTESTINE, UNSPECIFIED 06/16/2018 ANNETTE JIMENEZ SENIOR LOAN OFFICER Ot 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 06/16/2018 ANNETTE JIMENEZ SENIOR LOAN OFFICER Ot C54.1 MALIGNANT NEOPLASM OF ENDOMETRIUM 06/16/2018 ANNETTE JIMENEZ SENIOR LOAN OFFICER Ot Z78.0 ASYMPTOMATIC MENOPAUSAL STATE 06/16/2018 KAREN [...] ADULT 08/09/2018 RICHMOND PADILLA MD, Ot Z79.4 HALF-WAY (CURRENT) USE OF INSULIN 08/09/2018 RICHMOND PADILLA MD, Ot Z79.899 OTHER TOWER SWITCH OPERATOR (CURRENT) DRUG THERAPY 08/09/2018 RICHMOND PADILLA MD, Ot Z90.710 ACQUIRED ABSENCE OF BOTH CERVIX AND UTER Procedures There is no data. Results Test Result Range Bacterial urine culture - 04/17/16 15:25 Bacterial urine culture [id number] NRG COLONY COUNT >100,000/ML NRG FTX;REPORTABLE SENSITIVITY [...] measurement by glucometer (mass/volume) 77 mg/dL 70-110 [id number] - 04/29/17 10:39 Serum or plasma urea [...] culture - 05/07/17 12:00 Bacterial urine culture [id number] NR COLONY COUNT >100,000/ML NR FTX;REPORTABLE SENSITIVITY REPORTED 05/09/17 11:00 [facility] Bacterial susceptibility panel - 05/07/17 12:00 Gentamicin susceptibility test by minimum inhibitory concentration < = NRG Trimethoprim/sulfamethoxazole susceptibility test by minimum inhibitoryconcentration >= NR Ampicillin susceptibility test by minimum inhibitory concentration > = NR Tobramycin susceptibility test by minimum inhibitory concentration < = NR Cefazolin susceptibility test by minimum inhibitory concentration S NR Ceftriaxone susceptibility test by minimum inhibitory concentration S [facility] Ampicillin/sulbactam susceptibility test by minimum inhibitory concentration <= NRG Piperacillin/tazobactam susceptibility test by minimum inhibitory concentration <= NRG Ciprofloxacin susceptibility test by minimum inhibitory concentration <= NR Meropenem susceptibility test by minimum inhibitory concentration < = NRG Nitrofurantoin susceptibility test by minimum inhibitory concentration R NR Aztreonam susceptibility test by minimum inhibitory concentration S [facility] Bacterial urine culture - 05/26/17 16:35 URINE [...] culture - 11/19/17 14:55 Bacterial urine culture [id number] NRG COLONY COUNT >100,000/ML NRG FTX;REPORTABLE SENSITIVITY [...] culture - 05/28/18 08:00 Bacterial urine culture [id number] NRG COLONY COUNT >100,000/ML NRG FTX;REPORTABLE RML [...] Status Pt. Type Provider Facility Loc./Unit Complaint [id number] 08/18/2018 15:20:00 08/18/2018 23:59:59 CLS Outpatient RICHMOND PADILLA MD [facility] ONC [id number] 06/22/2018 11:17:00 06/22/2018 23:59:59 CLS Outpatient RICHMOND PADILLA MD [facility] RAD MEMORY LOSS [id number] 05/04/2018 13:15:00 06/16/2018 13:45:00 DIS Outpatient RICHMOND PADILLA MD [facility] ONC [id number] 05/28/2018 07:52:00 05/28/2018 11:15:00 DIS Emergency MARIYA FREY, LESIA Haines [facility] ER FALL;R SIDE PAIN;NECK PAIN [id number] 05/27/2018 16:02:00 05/27/2018 23:59:59 CLS Preadmit RICHMOND PADILLA MD [facility] RAD R41.3 MEMORY LOSS [id number] 03/18/2018 14:10:00 03/18/2018 23:59:59 CLS Preadmit RICHMOND PADILLA MD [facility] RAD MEMORY LOSS [id number] 02/18/2018 16:39:00 03/10/2018 00:01:00 DIS Outpatient RICHMOND PADILLA MD [facility] ONC [id number] 01/18/2018 13:33:00 01/18/2018 23:59:59 CLS Outpatient YANA HODGSON MD [facility] WOUNDCARE [id number] 01/04/2018 14:03:00 01/04/2018 23:59:59 CLS Outpatient YANA HODGSON MD [facility] WOUNDCARE [id number] 12/28/2017 12:18:00 12/28/2017 23:59:59 CLS Outpatient YANA HODGSON MD [facility] WOUNDCARE [id number] 11/27/2017 11:35:00 11/27/2017 15:35:00 DIS Outpatient TELMA GRIER MD [facility] ENDO HX OF COLON MASS [id number] 11/24/2017 06:33:00 11/24/2017 12:47:00 DIS Outpatient TELMA GRIER MD [facility] PREOP COLONOSCOPY [id number] 11/19/2017 13:56:00 11/19/2017 00:01:00 DIS Outpatient RICHMOND PADILLA MD [facility] ONC [id number] 10/07/2017 13:21:00 10/07/2017 23:59:59 CLS Outpatient JOSE ARMANDO FREY FACNOEMI Tavera FACP CCDS [facility] CARD R06.02 SHORTNESS OF BREATH [id number] 10/06/2017 08:21:00 10/06/2017 23:59:59 CLS Outpatient JOSE ARMANDO FREY FACC, NOEMI FACVaishali CCDS [facility] CARD R06.02 SHORTNESS OF BREATH [id number] 09/16/2017 08:54:00 09/16/2017 23:59:59 CLS Outpatient RICHMOND PADILLA MD [facility] RAD 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 [id number] 08/14/2017 12:36:00 08/20/2017 14:30:00 DIS Outpatient NII BORDEN [facility] ONC [id number] 08/19/2017 09:08:00 08/19/2017 23:59:59 CLS Outpatient RICHMOND PADILLA MD [facility] RAD 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 [id number] 06/29/2017 10:04:00 06/29/2017 23:59:59 CLS Outpatient KAREN MORALES DO [facility] RAD DYSPHAGIA TO SOLIDS R13.10 [id number] 06/25/2017 09:57:00 06/25/2017 23:59:59 CLS Outpatient ANNETTE JIMENEZ [facility] RAD Z78.0 [id number] 05/26/2017 15:31:00 06/13/2017 00:01:00 DIS Outpatient NII BORDEN [facility] ONC [id number] 05/19/2017 10:17:00 05/19/2017 23:59:59 CLS Outpatient ANNETTE JIMENEZ SENIOR LOAN OFFICER [facility] 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 [id number] 05/11/2017 12:49:00 05/11/2017 23:59:59 CLS Outpatient ANNETTE JIMENEZ SENIOR LOAN OFFICER [facility] RAD R92.8 [id number] 05/06/2017 10:36:00 05/06/2017 23:59:59 CLS Outpatient LEILA FLORES MD [facility] RAD R92.8 [id number] 04/29/2017 10:17:00 04/29/2017 23:59:59 CLS Outpatient NOBLE STILL APRN [facility] RAD SIGMOID MASS, DIVERTICULOSIS [id number] 04/22/2017 11:00:00 04/22/2017 16:00:00 DIS Outpatient TELMA GRIER MD [facility] ENDO ANEMIA CHANGE BOWEL HABITS HX OF BLACK TARRY STOOL [id number] 04/21/2017 13:19:00 04/21/2017 13:27:00 DIS Outpatient TELMA GRIER MD [facility] PREOP ANEMIA CHANGE BOWEL HABITS HX BLACK TARRY STOOL [id number] 04/16/2017 11:30:00 04/16/2017 23:59:59 CLS Preadmit FABIÁN POSADA MD [facility] RAD SCREENING [id number] 04/16/2017 11:17:00 04/16/2017 23:59:59 CLS Outpatient FABIÁN POSADA MD [facility] RAD R63.4 ABNORMAL WEIGHT LOSS SCREENING [id number] 04/09/2017 13:34:00 04/09/2017 23:59:59 CLS Outpatient FABIÁN POSADA MD [facility] ONC [id number] 03/25/2017 12:40:00 03/25/2017 16:00:00 DIS Outpatient YANA HODGSON MD [facility] WOUNDCARE [id number] 02/19/2017 17:25:00 02/21/2017 12:57:00 DIS Outpatient TELMA GRIER MD [facility] SDC R THORACIC RADICULOPATHY [id number] 02/05/2017 12:16:00 02/05/2017 23:59:59 CLS Outpatient FABIÁN POSADA MD [facility] RAD C54.1 [id number] 01/05/2017 13:07:00 01/11/2017 00:01:00 DIS Outpatient FABIÁN POSADA MD [facility] ONC [id number] 08/28/2016 12:55:00 10/08/2016 00:01:00 DIS Outpatient FABIÁN POSADA MD [facility] ONC [id number] 07/10/2016 09:13:00 07/10/2016 23:59:59 CLS Outpatient FABIÁN POSADA MD [facility] RAD UTERINE CA [id number] 04/17/2016 13:49:00 06/23/2016 10:30:00 DIS Outpatient FABIÁN POSADA MD [facility] ONC [id number] 06/12/2016 11:57:00 06/12/2016 23:59:59 CLS Outpatient KAREN MORALES DO [facility] HH DYSURIA, POSSIBLE UTI [id number] 04/23/2016 16:55:00 04/23/2016 23:59:59 CLS Outpatient KRAEN MORALES DO [facility] HH POSSIBLE C DIFF, DIARRHEA [id number] 03/20/2016 10:27:00 04/02/2016 00:01:00 DIS Outpatient FABIÁN POSADA MD [facility] ONC [id number] 03/17/2016 11:38:00 03/17/2016 15:24:00 DIS Emergency HUGH MCCULLOUGH DO [facility] ER DIZZINESS [id number] 01/15/2016 12:02:00 01/15/2016 23:59:59 CLS Outpatient FABIÁN POSADA MD [facility] RAD UTERINE CANCER [id number] 01/10/2016 11:44:00 01/10/2016 23:59:59 CLS Outpatient FABIÁN POSADA MD [facility] RAD [id number] 01/09/2016 12:25:00 01/09/2016 15:00:00 DIS Outpatient YANA HODGSON MD [facility] WOUNDCARE [id number] 12/27/2015 09:54:00 12/30/2015 00:01:00 DIS Outpatient FABIÁN POSADA MD [facility] ONC [id number] 10/31/2015 12:55:00 10/31/2015 23:59:59 CLS Outpatient KAREN MORALES DO [facility] RAD EDEMA LEFT LEG [id number] 10/11/2015 06:16:00 10/11/2015 23:59:59 CLS Outpatient TELMA GRIER MD [facility] SDC ENDOMETRIAL CANCER [id number] 10/10/2015 13:30:00 10/10/2015 23:59:59 CLS Outpatient FABIÁN POSADA MD [facility] RAD ENDOMETRIAL CA [id number] 10/09/2015 10:57:00 10/09/2015 23:59:59 CLS Outpatient TELMA GRIER MD [facility] PREOP PORT PLACEMENT [id number] 10/04/2015 10:58:00 10/04/2015 23:59:59 CLS Outpatient ANNETTE JIMENEZ [facility] ONC [id number] 08/24/2015 12:26:00 09/12/2015 00:01:00 DIS Outpatient FABIÁN POSADA MD [facility] ONC [id number] 08/02/2015 21:58:00 08/06/2015 13:45:00 DIS Inpatient KAREN MORALES DO [facility] 4TH UTI,INTRACTABLE PAIN OF BUTTOCK,R/T RADIATION BURN [id number] 06/13/2015 12:33:00 06/13/2015 00:01:00 DIS Outpatient FABIÁN POSADA MD [facility] ONC [id number] 05/29/2015 10:34:00 05/29/2015 23:59:59 CLS Outpatient FABIÁN POSADA MD [facility] RAD ENDOMETRIAL CA [id number] 05/16/2015 12:32:00 05/25/2015 12:00:00 DIS Outpatient COLTHARP MAYTE BAEZ [facility] WOUNDCARE [id number] 04/23/2015 13:56:00 04/23/2015 23:59:59 CLS Outpatient FENECH YANA BAEZ S [facility] RAD POST MENOPAUSAL BLEEDING WITH MASS [id number] 04/13/2015 12:24:00 04/13/2015 23:59:59 CLS Outpatient LY MORALES [facility] RAD VAG BLEEDING [id number] 03/28/2015 12:02:00 03/28/2015 23:59:59 CLS Outpatient IZA MAYTE Garibay [facility] RAD ULCER,DM,VENOUS INSUFFICIENCY [id number] 12/17/2014 07:48:00 12/17/2014 10:14:00 DIS Emergency VIRGILIO FREY, SANTIAGO Berkowitz [facility] ER CONGESTION [id number] 10/05/2014 13:17:34 10/05/2014 13:17:34 DIS Outpatient [id number] 03/05/2015 17:16:57 Document Registration [id number] 03/05/2015 17:16:54 Document Registration [id number] 03/05/2015 17:16:50 Document Registration [id number] 03/05/2015 17:16:46 Document Registration [id number] 02/19/2015 14:34:20 Document Registration [id number] 02/19/2015 14:34:17 Document Registration [id number] 02/19/2015 14:34:13 Document Registration [id number] 02/19/2015 14:34:10 Document Registration [id number] 02/19/2015 14:34:05 Document Registration [id number] 02/19/2015 14:33:50 Document Registration [id number] 02/19/2015 14:33:45 Document Registration [id number] 08/07/2014 15:17:00 Document Registration [id number] 05/23/2014 18:42:00 Document Registration [email or web address] 06/25/2015 14:01:15 ACT Document Registration
[2018-09-06] MEDS ORDERED: NS IV 1000 ML 1,000 ML ONE (17:38)
[2018-09-06 17:40] VITALS: BP 162/82
--- NOTE | 2018-09-06 17:40 | NUR ---
SUSANA BELCHER admitted to room 415-1, with an admitting diagnosis of HYPONATREMIA AND URINARY TRACT INFECTION, on 09/06/18 from ED via [facility], accompanied by ADULT DAUGHTER AND ED STAFF. SUSANA BELCHER introduced to surroundings, call light, bed controls, phone, TV, temperature control, lights, meal times, smoking policy, visitor policy, side rail policy, bathrooms and showers. Patient Rights given to patient in the handbook. SUSANA BELCHER verbalizes understanding that [facility] is not responsible for the loss or damage to any personal effects or valuables that are kept in the patients possession during their hospitalization. The following Patient Care Plans were discussed with the PATIENT AND HER ADULT DAUGHTER: Discharge Planning, ELECTROLYTE IMBALANCE--HYPONATREMIA,, URINARY TRACT INFECTION and KNOWLEDGE DEFICIT. SUSANA BELCHER verbalizes understanding of Interdisciplinary Patient Education. Patient and/or family were informed about the Rapid Response Team and its purpose.
[2018-09-06] MEDS ORDERED: ONDANSETRON 4 MG/2 ML (SDV) Z0FRAN IV PRN (17:45)
[2018-09-06] MEDS ORDERED: CATHETER FLUSH 10 ML SYR IV PRN (18:00)
[2018-09-06] MEDS: NS IV 1000 ML 1,000 ML IV SCH (18:21)
[2018-09-06] MEDS ORDERED: FLU QUADRIvalent (5+ YOA) 2018-2019 (AFLURIA) 0.5 ML IM ONE (18:30)
[2018-09-06] MEDS ORDERED: MULT-884 PO ×2 (18:39)
[2018-09-06] MEDS ORDERED: CRAN1CAP3 PO ×2 (18:39)
[2018-09-06] MEDS ORDERED: TR1C15 TP ×2 (18:39)
[2018-09-06] MEDS ORDERED: DESM0.2T2 PO ×2 (18:39)
[2018-09-06] MEDS ORDERED: CALC1TAB PO ×2 (18:39)
[2018-09-06] MEDS ORDERED: LETR2.5T5 PO ×2 (18:39)
--- NOTE | 2018-09-06 19:04 | NUR ---
This RN completed patient med rec to the fullest of my abilities using medications brought by daughter and medication list she provided as well.
[2018-09-06 20:50] VITALS: BP 174/75
[2018-09-06] MEDS: inSUlin ASPART (NovoLOG) 1 UNIT/0.01 ML (CHARGE PER UNIT) SC SCH (21:52)
[2018-09-07] VITALS: BP 167/80
[2018-09-07 04:00] VITALS: BP 167/80
[2018-09-07] MEDS: NS IV 1000 ML 1,000 ML IV SCH ×2 (04:49→13:23)
[2018-09-07 06:22] LABS: BASOPHILS % (AUTO) 1 % (0-10); EOSINOPHILS # (AUTO) 0.3 10^3/uL (0.0-0.3); EOSINOPHILS % (AUTO) 8 % (0-10); HEMATOCRIT 27 % (35-52); HEMOGLOBIN 9.2 G/DL (11.5-16.0); LYMPHOCYTES # (AUTO) 0.7 X 10^3 (1.0-4.0); LYMPHOCYTES % (AUTO) 15 % (12-44); MEAN CORPUSCULAR HEMOGLOBIN 31 PG (25-34); MEAN CORPUSCULAR HGB CONC 35 G/DL (32-36); MEAN CORPUSCULAR VOLUME 90 FL (80-99); MEAN PLATELET VOLUME 8.1 FL (7.4-10.4); MONOCYTES # (AUTO) 0.6 X 10^3 (0.0-1.0); MONOCYTES % (AUTO) 14 % (0-12); NEUTROPHILS # (AUTO) 2.8 X 10^3 (1.8-7.8); NEUTROPHILS % (AUTO) 63 % (42-75); PLATELET COUNT 294 10^3/uL (130-400); RED BLOOD COUNT 2.97 10^6/uL (4.35-5.85); RED CELL DISTRIBUTION WIDTH 13.7 % (10.0-14.5); WHITE BLOOD COUNT 4.4 10^3/uL (4.3-11.0)
[2018-09-07 06:52] LABS: ALANINE AMINOTRANSFERASE 8 U/L (0-55); ALBUMIN 3.1 GM/DL (3.2-4.5); ALKALINE PHOSPHATASE 74 U/L (40-136); BILIRUBIN,TOTAL 0.4 MG/DL (0.1-1.0); BUN/CREATININE RATIO 20; CALCIUM 8.5 MG/DL (8.5-10.1); CARBON DIOXIDE 24 MMOL/L (21-32); CHLORIDE 91 MMOL/L (98-107); CREATININE SERUM 0.79 MG/DL (0.60-1.30); GFR ESTIMATED > 60; GLUCOSE 90 MG/DL (70-105); POTASSIUM 3.3 MMOL/L (3.6-5.0); SODIUM 126 MMOL/L (135-145); TOTAL PROTEIN 5.5 GM/DL (6.4-8.2)
[2018-09-07] MEDS: inSUlin ASPART (NovoLOG) 1 UNIT/0.01 ML (CHARGE PER UNIT) SC SCH ×4 (07:19→20:19)
[2018-09-07 08:00] VITALS: BP 177/61
[2018-09-07] MEDS ORDERED: FLU QUADRIvalent (5+ YOA) 2018-2019 (AFLURIA) 0.5 ML IM ONE (10:51)
--- NOTE | 2018-09-07 11:29 | History & Physical-Hospitalist ---
History of Present Illness HPI/Chief Complaint CC: AMS with hyponatremia HPI: This is an 78yoWF clinic patient of Dr Jaramillo'sabrina who lives with her family and has significant dementia who presented to the ER with increased confusion and dx with UTI and severe hyponatremia of 122 near seizure level so she was admitted to 4th floor and given IVF NS and fluid restriction and is currently improved. No pain is reported. No reliable hx obtainable from the patient due to dementia. Source: RN/MD, old records Exam Limitations: clinical condition Date Seen 09/07/18 Time Seen by a Provider: 10:30 Attending Physician Pauline Mcdowell DO PCP Missael Jaramillo DO Referring Physician Date of Admission Sep 06, 2018 at 16:36 Home Medications & Allergies Home Medications Reviewed patient Home Medication Reconciliation performed by pharmacy medication reconciliations ecologist technician and/or nursing. Patients Allergies have been reviewed. Allergies Allergies Coded Allergies miconazole (Verified Allergy, Intermediate, RASH, 04/21/17) rash/hives ampicillin (Unverified Allergy, Unknown, 04/21/17) lanolin (Unverified Allergy, Unknown, 04/21/17) Rjtmqnt-Amt-Nuv Reductase Inhibitor (Unverified Adverse Reaction, Unknown, 04/21) adhesive tape (Unverified Adverse Reaction, Unknown, 04/21/17) latex (Unverified Adverse Reaction, Unknown, 04/21/17) Past Haudkei-Dyfrxq-Eifvcm Hx Past Med/Social Hx: Reviewed Nursing Past Med/Soc Hx, Reviewed and Corrections made Patient Social History Employed/Student: retired Alcohol Use: Denies Use Recreational Drug Use: No Smoking Status: Never a Smoker Physical Abuse Screen: No Sexual Abuse: No Recent Foreign Travel: No Contact w/other who traveled: No Recent Hopitalizations: No Recent Infectious Disease Expo: No Immunizations Up To Date Tetanus Booster (TDap): Unknown Date of Pneumonia Vaccine: Oct 02, 2015 Date of Influenza Vaccine: Jun 23, 2017 Seasonal Allergies Seasonal Allergies: No Past Medical History Surgeries: Abdominal, Section, Eye Surgery, Gallbladder, Hysterectomy , Oophorectomy, Orthopedic Cardiac: Chronic Edema/Swelling Neurological: Neuropathy : No Reproductive: Yes (CANCER--SEE BELOW) Sexually Transmitted Disease: No HIV/AIDS: No Genitourinary: Renal Failure Musculoskeletal: Degenerate Disk Disease, Arthritis, Chronic Back Pain Endocrine: Diabetes, Insulin dep HEENT: Macular Degeneration Loss of Vision: Bilateral Hearing Impairment: Denies Cancer: Breast, Uterine, Vaginal Did You Recieve Any Treatments: Yes What Type of Treatment Did You: Chemotherapy, Radiation, Surgical Intervention Psychosocial: Sleep Difficulties Skin/Integumentary: Pruritis, Recent Skin Changes History of Blood Disorders: No ("bleeds easily") Adverse Reaction to Blood Nation: No Family History FH: lung cancer G8 SISTER FH: stomach cancer G8 BROTHER FH: uterine cancer 19 MOTHER Myocardial infarction 19 FATHER Neoplasm SON No Pertinent Family Hx, Hypertension Review of Systems Constitutional: see HPI, dizziness, weakness EENTM: no symptoms reported Respiratory: no symptoms reported Cardiovascular: no symptoms reported Gastrointestinal: no symptoms reported Musculoskeletal: no symptoms reported Skin: no symptoms reported Psychiatric/Neurological: No Symptoms Reported All Other Systems Reviewed Negative Unless Noted: Yes Physical Exam Physical Exam Vital Signs Vital Signs - First Documented 09/06/18 09/06/18 14:28 17:40 Temp 97.7 Pulse 75 Resp 14 B/P (MAP) 167/75 (105) Pulse Ox 96 O2 Delivery Room Air Capillary Refill : Less Than 3 Seconds Height, Weight, BMI Height: 4'11.00" Weight: 184lbs. 8.0oz. 83.895401pn; 37.2 BMI Method:Stated General Appearance: No Apparent Distress, WD/WN, Chronically ill Eyes: Bilateral Eye Normal Inspection, Bilateral Eye PERRL HEENT: PERRL/EOMI, Normal ENT Inspection, Pharynx Normal Neck: Full Range of Motion, Normal Inspection, Non Tender, Supple, Carotid Bruit Respiratory: Chest Non Tender, Lungs Clear, Normal Breath Sounds, No Accessory Muscle Use, No Respiratory Distress Cardiovascular: Regular Rate, Rhythm, No Edema, No Gallop, No JVD, No Murmur, Normal Peripheral Pulses Gastrointestinal: Normal Bowel Sounds, No Organomegaly, No Pulsatile Mass, Non Tender, Soft Back: Normal Inspection, No CVA Tenderness, No Vertebral Tenderness Extremity: Normal Capillary Refill, Normal Inspection, Normal Range of Motion, Non Tender, No Calf Tenderness, No Pedal Edema Neurologic/Psychiatric: Alert, No Motor/Sensory Deficits, Normal Mood/Affect, Disoriented Skin: Normal Color, Warm/Dry Lymphatic: No Adenopathy Results Results/Procedures Labs Laboratory Tests 09/06/18 14:55 09/07/18 06:00 Patient resulted labs reviewed. Assessment/Plan Admission Diagnosis Hyponatremia Altered mental status Baseline dementia Hypertension Acute UTI Admission Status: Inpatient Order (span 2 midnights) Reason for Inpatient Admission: Severe hyponatremia with UTI will require 3 days of inpt treatment Assessment and Plan Plan: Fluid restriction Normal saline IV fluid Empiric antibiotics with Rocephin Home meds Monitor closely Fall risk Diagnosis/Problems Diagnosis/Problems (1) Hyponatremia Status: Acute (2) Dementia Status: Chronic Qualifiers: Dementia type: Alzheimer's disease Alzheimer's disease onset: unspecified onset Dementia behavioral disturbance: without behavioral disturbance Qualified Codes: G30.9 - Alzheimer's disease, unspecified; F02.80 - Dementia in other diseases classified elsewhere without behavioral disturbance (3) Debility Status: Chronic (4) Urinary tract infection Status: Acute Qualifiers: Urinary tract infection type: acute cystitis Hematuria presence: without hematuria Qualified Codes: N30.00 - Acute cystitis without hematuria (5) History of uterine cancer Status: Chronic Clinical Quality Measures DVT/VTE Risk/Contraindication: Risk Factor Score Per Nursin RFS Level Per Nursing on Admit: 4+=Very High PAULINE MCDOWELL DO Sep 07, 2018 11:29
[2018-09-07] MEDS ORDERED: NON-FORMULARY MEDICATION 1 EA EA (Ranitidine HCl (Zantac) 150 MG) PO PRN (11:30)
[2018-09-07] MEDS ORDERED: CARBOXYMETHYLCELLULOSE SODIUM OU PRN (11:30)
[2018-09-07] MEDS ORDERED: CALCIUM CARBONATE 500 MG (TUMS) TAB.CHEW PO PRN (11:30)
[2018-09-07] MEDS ORDERED: DOCUSATE SODIUM 100 MG (COLACE) CAP PO PRN (11:30)
[2018-09-07] MEDS ORDERED: FAMOTIDINE 20 MG (PEPCID) TABLET PO PRN (11:45)
[2018-09-07] MEDS ORDERED: ARTIFICAL TEARS 0.4 ML UNIT DOSE (REFRESH PLUS) OU PRN (11:45)
[2018-09-07] MEDS: MAGNESIUM OXIDE (MAG-OX)400 MG TAB PO SCH (11:51)
[2018-09-07] MEDS: ENOXAPARIN 40 MG/0.4 ML (LOVENOX) SYR SC SCH (11:52)
[2018-09-07] MEDS ORDERED: NON-FORMULARY MEDICATION 1 EA EA (Magnesium Oxide (Magnesium) 500 MG) PO SCH (12:00)
[2018-09-07] MEDS: ALPRAZolam 0.25 MG (XANAX) TAB PO PRN ×2 (12:09→20:19)
[2018-09-07] MEDS: ACETAMINOPHEN 325 MG TABLET PO PRN (12:12)
[2018-09-07] MEDS ORDERED: PATIENT MAY USE OWN MED,SINGLE MED PO SCH (12:15)
[2018-09-07] MEDS ORDERED: PATIENT MAY USE OWN MEDS, ALL MC SCH (12:15)
[2018-09-07 16:00] VITALS: BP 153/68
[2018-09-07] MEDS: CALCIUM CARB + VIT D 600 MG (CALCARB + D) TAB PO SCH (16:59)
[2018-09-07] MEDS ORDERED: cefTRIAXone 1 GM/NS 50 ML IVPB IV SCH ×2 (17:00)
[2018-09-07] MEDS: AMITRIPTYLINE 25 MG (ELAVIL) TAB PO SCH (20:19)
[2018-09-07] MEDS: DESMOPRESSIN 0.2 MG TAB (NON-FORMULARY) PO SCH (20:20)
[2018-09-07] MEDS: inSUlin DETERMIR 1 UNIT/0.01 ML (LEVEMIR) CHARGE PER UNIT SQ SCH (20:20)
[2018-09-07] MEDS ORDERED: DESMOPRESSIN 0.2 MG TAB (NON-FORMULARY) PO SCH (21:00)
[2018-09-07] MEDS ORDERED: DESMOPRESSIN ACETATE 0.2 MG PO SCH (21:00)
[2018-09-07] MEDS ORDERED: NON-FORMULARY MEDICATION 1 EA EA (Calcium Carbonate/Vitamin D3 (Caltrate 600 + D Tablet) 1 PO SCH (21:00)
[2018-09-07] MEDS ORDERED: NON-FORMULARY MEDICATION 1 EA EA (Insulin Glargine,Hum.rec.anlog (Lantus Solostar) 20 UNIT SQ SCH (21:00)
[2018-09-08] VITALS: BP 182/81
--- NOTE | 2018-09-08 01:39 | NUR ---
Pt BP reported to this RN at 0030 was 182/81. Pt assessed to be very anxious and needing to toilet. Pt toiletted, given warm blanket and reassesed at 0115 to have manual BP 152/78, pt appears calmer now. Will continue to monitor.
[2018-09-08] MEDS: NS IV 1000 ML 1,000 ML IV SCH (03:32)
[2018-09-08 05:30] LABS: BASOPHILS % (AUTO) 0 % (0-10); EOSINOPHILS # (AUTO) 0.2 10^3/uL (0.0-0.3); EOSINOPHILS % (AUTO) 5 % (0-10); HEMATOCRIT 27 % (35-52); HEMOGLOBIN 9.1 G/DL (11.5-16.0); LYMPHOCYTES # (AUTO) 0.5 X 10^3 (1.0-4.0); LYMPHOCYTES % (AUTO) 11 % (12-44); MEAN CORPUSCULAR HEMOGLOBIN 31 PG (25-34); MEAN CORPUSCULAR HGB CONC 34 G/DL (32-36); MEAN CORPUSCULAR VOLUME 91 FL (80-99); MEAN PLATELET VOLUME 7.9 FL (7.4-10.4); MONOCYTES # (AUTO) 0.6 X 10^3 (0.0-1.0); MONOCYTES % (AUTO) 12 % (0-12); NEUTROPHILS # (AUTO) 3.5 X 10^3 (1.8-7.8); NEUTROPHILS % (AUTO) 72 % (42-75); PLATELET COUNT 270 10^3/uL (130-400); RED BLOOD COUNT 2.92 10^6/uL (4.35-5.85); WHITE BLOOD COUNT 4.8 10^3/uL (4.3-11.0)
[2018-09-08 05:45] LABS: ALANINE AMINOTRANSFERASE 10 U/L (0-55); ALBUMIN 3.2 GM/DL (3.2-4.5); ALKALINE PHOSPHATASE 63 U/L (40-136); BILIRUBIN,TOTAL 0.2 MG/DL (0.1-1.0); BUN/CREATININE RATIO 15; CALCIUM 8.5 MG/DL (8.5-10.1); CARBON DIOXIDE 25 MMOL/L (21-32); CHLORIDE 99 MMOL/L (98-107); CREATININE SERUM 0.66 MG/DL (0.60-1.30); GFR ESTIMATED > 60; POTASSIUM 2.9 MMOL/L (3.6-5.0); SODIUM 134 MMOL/L (135-145); TOTAL PROTEIN 5.7 GM/DL (6.4-8.2)
[2018-09-08 05:52] LABS: GLUCOSE 54 MG/DL (70-105)
[2018-09-08] MEDS: inSUlin ASPART (NovoLOG) 1 UNIT/0.01 ML (CHARGE PER UNIT) SC SCH ×4 (06:14→20:02)
[2018-09-08] MEDS: TROSPIUM 20 MG (SANCTURA) TAB PO SCH ×2 (06:24→16:28)
[2018-09-08] MEDS: PANTOPRAZOLE 40 MG (PROTONIX) TAB PO SCH (06:24)
[2018-09-08] MEDS: CALCIUM CARB + VIT D 600 MG (CALCARB + D) TAB PO SCH ×2 (06:24→16:28)
[2018-09-08] MEDS: ACETAMINOPHEN 325 MG TABLET PO PRN ×2 (06:24→18:52)
[2018-09-08 08:00] VITALS: BP 161/74
[2018-09-08] MEDS ORDERED: ASCORBIC ACID PO SCH (09:00)
[2018-09-08] MEDS ORDERED: SOLIFENACIN 5 MG TAB (VESICARE) NON-FORMULARY PO SCH (09:00)
[2018-09-08] MEDS ORDERED: CRANBERRY PO SCH (09:00)
[2018-09-08] MEDS ORDERED: [UNRECOGNIZED DRUG - OTHER] PO SCH (09:00)
[2018-09-08] MEDS ORDERED: KCL 10 MEQ TAB (MICRO K) PO NR (09:00)
[2018-09-08] MEDS: lisINopril 20 MG (PRINIVIL) TABLET PO SCH (09:27)
[2018-09-08] MEDS: TRIAMCINOLONE 0.1% CR (KENALOG) 15 GM TUBE TP SCH (09:28)
[2018-09-08] MEDS: LETROZOLE 2.5 MG (FEMARA) TAB PO SCH (09:29)
[2018-09-08] MEDS ORDERED: amLODIPine 5 MG (NORVASC) TAB PO NR (10:15)
--- NOTE | 2018-09-08 10:45 | Progress Note-Hospitalist ---
Subjective HPI/CC On Admission Date Seen by Provider: Sep 08, 2018 Time Seen by Provider: 09:00 CC: AMS with hyponatremia HPI: This is an 78yoWF clinic patient of Dr Jaramillo'sabrina who lives with her family and has significant dementia who presented to the ER with increased confusion and dx with UTI and severe hyponatremia of 122 near seizure level so she was admitted to 4th floor and given IVF NS and fluid restriction and is currently improved. No pain is reported. No reliable hx obtainable from the patient due to dementia. Subjective/Events-last exam Patient doing about the same as confusion goes Palliative care reached out to family and may need fdc placement or hospice Awaiting urine culture Hyponatremia much improved Eating and drinking well Will Hep-Lock IV fluid She states her bowels are not moving but she has 6 bowel movements documented yesterday Review of Systems Neurological: Confusion Focused Exam Lactate Level 09/06/18 15:13: Lactic Acid Level 0.63 Objective Exam Vital Signs Vital Signs Date Time Temp Pulse Resp B/P (MAP) Pulse Ox O2 Delivery O2 Flow Rate FiO2 09/08/18 08:00 97.5 75 20 161/74 (103) 97 Room Air Capillary Refill : Less Than 3 Seconds General Appearance: No Apparent Distress, WD/WN, Chronically ill Respiratory: Chest Non Tender, Lungs Clear, Normal Breath Sounds, No Accessory Muscle Use, No Respiratory Distress Cardiovascular: Regular Rate, Rhythm, No Edema, No Gallop, No JVD, No Murmur, Normal Peripheral Pulses Neurologic/Psychiatric: Alert, No Motor/Sensory Deficits, Normal Mood/Affect, Disoriented Skin: Normal Color, Warm/Dry Results/Procedures Lab Laboratory Tests 09/08/18 05:23 Patient resulted labs reviewed. Assessment/Plan Assessment and Plan Assess & Plan/Chief Complaint Assessment: Hyponatremia UTI with enterococcus Dementia with worsening status may need fdc placement or hospice Plan: Fluid restriction HL IV fluid Empiric antibiotics but await UCx results and may narrow Home meds Monitor closely Fall risk NHP versus home on Hospice Diagnosis/Problems Diagnosis/Problems (1) Hyponatremia Status: Acute (2) Dementia Status: Chronic Qualifiers: Dementia type: Alzheimer's disease Alzheimer's disease onset: unspecified onset Dementia behavioral disturbance: without behavioral disturbance Qualified Codes: G30.9 - Alzheimer's disease, unspecified; F02.80 - Dementia in other diseases classified elsewhere without behavioral disturbance (3) Debility Status: Chronic (4) Urinary tract infection Status: Acute Qualifiers: Urinary tract infection type: acute cystitis Hematuria presence: without hematuria Qualified Codes: N30.00 - Acute cystitis without hematuria (5) History of uterine cancer Status: Chronic Clinical Quality Measures DVT/VTE Risk/Contraindication: Risk Factor Score Per Nursin RFS Level Per Nursing on Admit: 4+=Very High LIBORIO FELDMAN DO Sep 08, 2018 10:45
--- NOTE | 2018-09-08 10:49 | NUR ---
Palliative Care RN in to see patient to determine what the discharge plan is for the patient. Found an elderly female in bed resting but easily aroused to name and light tough. She is not able to answer questions due to significant dementia which has progressed significantly since . She occasionally ambulates using walker but some days is not able, she has many words that she knows but does not use them appropriately when conversing. Oral intake is hit or miss and she doesn't always remember when she has hor has not eaten. Spoke to her granddaughter and to her son-in-law about the possibility of hospice at discharge which is anticipated for tomorrow. Both are interested in this but this is not the decision maker and they will talk to patient daughter. Gave list of hospice choices over the phone and suggested they talk to them today for anticipated discharge tomorrow. Discharge complicated by daughter's knee replacement surgery tomorrow.
[2018-09-08] MEDS: CIPROFLOXACIN 500 MG (CIPRO) TABLET PO SCH ×2 (11:03→20:22)
[2018-09-08] MEDS: ENOXAPARIN 40 MG/0.4 ML (LOVENOX) SYR SC SCH (11:04)
[2018-09-08] MEDS: MAGNESIUM OXIDE (MAG-OX)400 MG TAB PO SCH (12:10)
[2018-09-08] MEDS: diphenhydrAMINE 25 MG TAB (BENADRYL) PO PRN (14:25)
[2018-09-08] MEDS: ALPRAZolam 0.25 MG (XANAX) TAB PO PRN (14:25)
--- NOTE | 2018-09-08 14:58 | Physical Therapy Evaluation ---
PT Evaluation-General Medical Diagnosis Admission Date Sep 06, 2018 at 16:36 Medical Diagnosis: weakness Onset Date: Sep 06, 2018 Therapy Diagnosis Therapy Diagnosis: impaired mobility, endurance Height/Weight Height (Feet): 4 Height (Inches): 11.00 Weight (Pounds): 184 Weight (Ounces): 8.0 Precautions Precautions/Isolations: Fall Prevention, Standard Precautions Referral Physician: Pauline Mcdowell DO Reason for Referral: Evaluation/Treatment Medical History Pertinent Medical History: DM, Neuropathy Additional Medical History Past Medical History Surgeries: Abdominal, Section, Eye Surgery, Gallbladder, Hysterectomy , Oophorectomy, Orthopedic Cardiac: Chronic Edema/Swelling Neurological: Neuropathy : No Reproductive: Yes (CANCER--SEE BELOW) Sexually Transmitted Disease: No HIV/AIDS: No Genitourinary: Renal Failure Musculoskeletal: Degenerate Disk Disease, Arthritis, Chronic Back Pain Endocrine: Diabetes, Insulin dep HEENT: Macular Degeneration Loss of Vision: Bilateral Hearing Impairment: Denies Cancer: Breast, Uterine, Vaginal Did You Recieve Any Treatments: Yes What Type of Treatment Did You: Chemotherapy, Radiation, Surgical Intervention Psychosocial: Sleep Difficulties Skin/Integumentary: Pruritis, Recent Skin Changes History of Blood Disorders: No ("bleeds easily") Current History Patient went to ER with confusion and dx of UTI and severe hyponatremia Social History Patient has dementia and cannot relay info about her home or prior mobility Prior/Core FIM Prior Level of Function Therapy Code Descriptions/Definitions Functional [place] Measure: 0=Not Assessed/NA 4=Minimal Assistance 1=Total Assistance 5=Supervision or Setup 2=Maximal Assistance 6=Modified [place] 3=Moderate Assistance 7=Complete [place] Therapy Quality Codes: 6 Independent with activity with or without an assistive device 5 Patient requires set up or clean up by helper. Patient completes activity by themselves 4 Supervision or touching assist (CGA). [place] provide cues , steadying assist 3 The helper provides less than half the effort to complete the activity 2 The helper provides more than half the effort to complete the activity 1 Dependent. The helper does all the effort to complete an activity 7 Patient refused to complete or attempt activity 9 The patient did not perform the activity before the current illness or injury 88 Not attempted due to Medical conditions or safety concerns Functional Abilities and Goals: Independent: Patient completed the activities by him/herself, with or without an assistive device, with no assistance from a helper. Needed Some Help: Patient needed partial assistance from another person to complete activities. Dependent: A helper completed the activities for the patient. Unknown: Not Applicable: unknown PT Evaluation-Current Subjective Patient in bed pre tx, agrees reluctantly to PT, patient is very nervous. She says yes that she has pain but cannot locate it or quantify it. Pt/Family Goals none stated Objective Patient Orientation: Person, Confused Attachments: IV ROM/Strength ROM Lower Extremities WNL Strength Lower Extremities NT due to patient not being able to follow directions Integumentary/Posture Integumentary Patient has scratched her legs and made them bleed on the sheet, has blood on her hands. Nurse aide comes in during therapy to clean her up and change bed. Sensory Hearing: Functional Transfers Therapy Code Descriptions/Definitions Functional [place] Measure: 0=Not Assessed/NA 4=Minimal Assistance 1=Total Assistance 5=Supervision or Setup 2=Maximal Assistance 6=Modified [place] 3=Moderate Assistance 7=Complete [place] Transfers (B, C, W/C) (FIM): 4 Scootin Rollin Supine to/from Sit: 4 Sit to/from Stand: 4 bed t/f WC(FIM only if WC use): 4 Min assist for bed mobility and transfers, cues for hand placement. Gait Mode of Locomotion: Walk Anticipated Mode of Locomotion: Walk Gait (FIM): 1 Distance: 25' Gait Level of Assist: 4 Gait Persons Needed: 1 Gait Assistive Device: FWW Comments/Gait Description Min assist for ambulation to help guide walker, needs cues to stay close to walker, slumped posture, slow and unsteady ambulation. Balance Sitting Static: Fair Sitting Dynamic: Fair Standing Static: Fair Standing Dynamic: Fair Treatment Supine exercises attempted but patient could not follow directions. Assessment/Needs Patient has impaired mobility, endurance, balance. She is confused and a fall risk. Patient in bed post tx with nurse call, phone, tray, all needs met. Bed alarm on. Nurse aide in room when PT left. Rehab Potential: Guarded PT Short Term Goals Short Term Goals Time Frame: Sep 15, 2018 Transfers (B,C,W/C) (FIM): 5 Gait (FIM): 2 Gait Distance Comment: 50' Gait Level of Assist: 4 Gait Assistive Device: FWW PT Plan Problem List Problem List: Activity Tolerance, Functional Strength, Safety, Balance, Gait, Transfer, Bed Mobility, ROM Treatment/Plan Treatment Plan: Continue Plan of Care Treatment Plan: Bed Mobility, Concurrent Therapy, Education, Functional Activity [place], Functional Strength, Gait, Safety, Therapeutic Exercise, Transfers Treatment Duration: Sep 15, 2018 Frequency: 6 times per week Estimated Hrs Per Day: .25 hour per day Patient and/or Family Agrees t: Yes Safety Risks/Education Patient Education: Gait Training, Transfer Techniques, Correct Positioning, Safety Issues Teaching Recipient: Patient Teaching Methods: Demonstration, Discussion Response to Teaching: Reinforcement Needed Discharge Recommendations Plan Patient will perform bed mobility and transfer training, balance and endurance training, functional strengthening, gait training, and education, to improve functional mobility and independence at home. Therapy D/C Recommendations: Home w/ Family Support Time/GCodes Time In: 1435 Time Out: 1450 Total Billed Treatment Time: 15 Total Billed Treatment [address] [facility] 15' PIERCE RAY PT Sep 08, 2018 14:58
--- NOTE | 2018-09-08 15:26 | Occupational Therapy Eval ---
OT Evaluation-General/PLF Medical Diagnosis Admission Date Sep 06, 2018 at 16:36 Medical Diagnosis: weakness Onset Date: Sep 06, 2018 Therapy Diagnosis Therapy Diagnosis: decr self care, decr funct mob, decr cognition Height/Weight Height (Feet): 4 Height (Inches): 11.00 Weight (Pounds): 184 Weight (Ounces): 8.0 Precautions Precautions/Isolations: Fall Prevention, Standard Precautions Safety Interventions: Notify Family, Bed Exit Alarm, Reorient-Attempt Referral Physician: Pauline Mcdowell DO Referral Reason: Evaluation/Treatment Medical History Pertinent Medical History: Arthritis, DM, Dementia, HTN, Macular Degenertion, Neuropathy, Renal Insufficiency Additional Medical History R breast lumpectomy, breast, uterine, vaginal cancer. Chronic edema/swelling. DDD. Chronic back pain. Sleep difficulties Current History Admitted after several days of worsening confusion. Has UTI, dementia, hyponatremia Reviewed History: Yes Social History Pt lives with daughter but is unable to give any information about the house or bathroom ADL-Prior Level of Function Therapy Code Descriptions/Definitions Functional [place] Measure: 0=Not Assessed/NA 4=Minimal Assistance 1=Total Assistance 5=Supervision or Setup 2=Maximal Assistance 6=Modified [place] 3=Moderate Assistance 7=Complete [place] Therapy Quality Codes: 6 Independent with activity with or without an assistive device 5 Patient requires set up or clean up by helper. Patient completes activity by themselves 4 Supervision or touching assist (CGA). [place] provide cues , steadying assist 3 The helper provides less than half the effort to complete the activity 2 The helper provides more than half the effort to complete the activity 1 Dependent. The helper does all the effort to complete an activity 7 Patient refused to complete or attempt activity 9 The patient did not perform the activity before the current illness or injury 88 Not attempted due to Medical conditions or safety concerns Functional Abilities and Goals: Independent: Patient completed the activities by him/herself, with or without an assistive device, with no assistance from a helper. Needed Some Help: Patient needed partial assistance from another person to complete activities. Dependent: A helper completed the activities for the patient. Unknown: Not Applicable: ADL PLOF Comments Pt was unable to provide any information on her prior functional status. Chart reported that she occasionally walked with a walker. Self Care: Needed Some Help Functional Cognition: Needed Some Help OT Current Status Subjective Pt seen in room, up in bed, agreeable to OT. No pain mentioned. Appearance Oriented to name and . Knew today was the day after [place], 1920. Mental Status/Objective Patient Orientation: Person Attachments: IV Current Upper Extremity ROM Grossly WFL bilat Upper Extremity Strength Grossly 4/5 bilat, with some difficulty following instructions Pt had blood on hands and around fingernails. She apparently scratched her legs to bleeding point. ADL-Treatment ADL-Current Nursing reported that she can feed herself but eats poorly. She can transfer onto [facility] with min assist but needs help managing clothing and hygiene. She was handed a toothbrush and toothpaste and needed cues to take cap off toothpaste, assist to put toothpaste on brush, cues to rinse her mouth. Able to wash face and hands with cues, setup. Therapy Code Descriptions/Definitions Functional [place] Measure: 0=Not Assessed/NA 4=Minimal Assistance 1=Total Assistance 5=Supervision or Setup 2=Maximal Assistance 6=Modified [place] 3=Moderate Assistance 7=Complete [place] Therapy Quality Codes: 6 Independent with activity with or without an assistive device 5 Patient requires set up or clean up by helper. Patient completes activity by themselves 4 Supervision or touching assist (CGA). [place] provide cues , steadying assist 3 The helper provides less than half the effort to complete the activity 2 The helper provides more than half the effort to complete the activity 1 Dependent. The helper does all the effort to complete an activity 7 Patient refused to complete or attempt activity 9 The patient did not perform the activity before the current illness or injury 88 Not attempted due to Medical conditions or safety concerns Eating (FIM): 5 Grooming (FIM): 4 Toileting (FIM): 1 Toilet/Commode Transfer (FIM): 4 (BS) Education OT Patient Education: Purpose of tx/functional activities, Rehab process Teaching Recipient: Patient Teaching Methods: Discussion Response to Teaching: Verbalize Understanding, Reinforcement Needed OT Railroad Car Checker Goals Railroad Car Checker Goals Time Frame: Sep 10, 2018 Grooming(FIM): 5 Toileting(FIM): 3 Toilet/Commode Transfer(FIM): 5 (SBA) Additional Goals: 3-ImproveStrength/[place] 3=Patient will improve strength/tolerance for activity to enable patient to perform ADL's. OT Education/Plan Problem List/Assessment Assessment: Decreased UE Strength, Dependent Transfers (funct mobility), Impaired Self-Care Skills Discharge Recommendations Plan/Recommendations: Continue POC Comment Anticipated discharge to Hospice and respite care. Treatment Plan/Plan of Care Treatment,Training & Education: Yes Patient would benefit from OT for education, treatment and training to promote independence in ADL's, mobility, safety and/or upper extremity function for ADL' s. Plan of Care: ADL Retraining Treatment Duration: Sep 10, 2018 Frequency: 3 times per week Estimated Hrs Per Day: .25 hour per day Agreement: Yes Rehab Potential: Guarded Time/GCodes Start Time: 14:47 Stop Time: 15:05 Total Time Billed (hr/min): 18 Billed Treatment Time visit, 18 minutes evaluation low intensity RENAN ODONNELL OT Sep 08, 2018 15:26
[2018-09-08 15:35] VITALS: BP 156/72
--- NOTE | 2018-09-08 16:30 | NUR ---
PT SON-IN-LAW, VARSHA, WOULD LIKE TO KNOW THE SODIUM LEVELS AND TO SPEAK WITH THE DR. PRIOR TO PT DISCHARGE.
[2018-09-08] MEDS: inSUlin DETERMIR 1 UNIT/0.01 ML (LEVEMIR) CHARGE PER UNIT SQ SCH (20:22)
[2018-09-08] MEDS: AMITRIPTYLINE 25 MG (ELAVIL) TAB PO SCH (20:22)
[2018-09-08] MEDS: DESMOPRESSIN 0.2 MG TAB (NON-FORMULARY) PO SCH (20:22)
[2018-09-09 00:13] VITALS: BP 162/76
[2018-09-09] MEDS: inSUlin ASPART (NovoLOG) 1 UNIT/0.01 ML (CHARGE PER UNIT) SC SCH ×4 (05:45→19:51)
[2018-09-09 05:51] LABS: BASOPHILS % (AUTO) 1 % (0-10); EOSINOPHILS # (AUTO) 0.4 10^3/uL (0.0-0.3); EOSINOPHILS % (AUTO) 9 % (0-10); HEMATOCRIT 27 % (35-52); LYMPHOCYTES # (AUTO) 0.6 X 10^3 (1.0-4.0); LYMPHOCYTES % (AUTO) 16 % (12-44); MEAN CORPUSCULAR HEMOGLOBIN 31 PG (25-34); MEAN CORPUSCULAR HGB CONC 34 G/DL (32-36); MEAN CORPUSCULAR VOLUME 93 FL (80-99); MEAN PLATELET VOLUME 7.9 FL (7.4-10.4); MONOCYTES # (AUTO) 0.6 X 10^3 (0.0-1.0); MONOCYTES % (AUTO) 16 % (0-12); NEUTROPHILS # (AUTO) 2.3 X 10^3 (1.8-7.8); NEUTROPHILS % (AUTO) 58 % (42-75); PLATELET COUNT 255 10^3/uL (130-400); RED CELL DISTRIBUTION WIDTH 14.3 % (10.0-14.5)
[2018-09-09] MEDS: KCL 10 MEQ TAB (MICRO K) PO SCH (05:54)
[2018-09-09] MEDS: CALCIUM CARB + VIT D 600 MG (CALCARB + D) TAB PO SCH ×2 (05:54→16:21)
[2018-09-09] MEDS: TROSPIUM 20 MG (SANCTURA) TAB PO SCH ×2 (05:54→16:21)
[2018-09-09] MEDS: PANTOPRAZOLE 40 MG (PROTONIX) TAB PO SCH (05:54)
[2018-09-09 06:12] LABS: ALANINE AMINOTRANSFERASE 8 U/L (0-55); ALKALINE PHOSPHATASE 61 U/L (40-136); BILIRUBIN,TOTAL 0.3 MG/DL (0.1-1.0); BUN/CREATININE RATIO 14; CALCIUM 8.9 MG/DL (8.5-10.1); CARBON DIOXIDE 27 MMOL/L (21-32); CHLORIDE 100 MMOL/L (98-107); CREATININE SERUM 0.71 MG/DL (0.60-1.30); GFR ESTIMATED > 60; POTASSIUM 3.5 MMOL/L (3.6-5.0); SODIUM 135 MMOL/L (135-145); TOTAL PROTEIN 5.6 GM/DL (6.4-8.2)
[2018-09-09 06:14] LABS: GLUCOSE 57 MG/DL (70-105)
--- NOTE | 2018-09-09 06:55 | NUR ---
Dr. Mcdowell notified of hypoglycemia; no new orders received at this time.
[2018-09-09 08:00] VITALS: BP 198/81
[2018-09-09] MEDS: lisINopril 20 MG (PRINIVIL) TABLET PO SCH (08:53)
[2018-09-09] MEDS: LETROZOLE 2.5 MG (FEMARA) TAB PO SCH (08:54)
[2018-09-09] MEDS: CIPROFLOXACIN 500 MG (CIPRO) TABLET PO SCH ×2 (08:54→20:23)
[2018-09-09] MEDS: amLODIPine 5 MG (NORVASC) TAB PO SCH (08:54)
[2018-09-09] MEDS: TRIAMCINOLONE 0.1% CR (KENALOG) 15 GM TUBE TP SCH (08:55)
[2018-09-09] MEDS ORDERED: CIPR500T4 PO ×2 (08:59)
[2018-09-09] MEDS ORDERED: AMLO5TAB7 PO ×2 (08:59)
--- NOTE | 2018-09-09 09:00 | Discharge Summary-Hospitalist ---
Diagnosis/Chief Complaint Date of Admission Sep 06, 2018 at 16:36 Date of Discharge Discharge Date: Sep 09, 2018 Admission Diagnosis Hyponatremia Altered mental status Baseline dementia Hypertension Acute UTI Discharge Diagnosis (1) Hyponatremia Status: Resolved (2) Dementia Status: Chronic (3) Debility Status: Chronic (4) Urinary tract infection Status: Acute (5) History of uterine cancer Status: Chronic Discharge Summary Discharge Physical Exam Allergies: Coded Allergies: miconazole (Verified Allergy, Intermediate, RASH, 04/21/17) rash/hives ampicillin (Unverified Allergy, Unknown, 04/21/17) lanolin (Unverified Allergy, Unknown, 04/21/17) Bhuatob-Bog-Cti Reductase Inhibitor (Unverified Adverse Reaction, Unknown , 04/21/17) adhesive tape (Unverified Adverse Reaction, Unknown, 04/21/17) latex (Unverified Adverse Reaction, Unknown, 04/21/17) Vitals & I&Os Vital Signs Date Time Temp Pulse Resp B/P (MAP) Pulse Ox O2 Delivery O2 Flow Rate FiO2 09/09/18 08:00 96.9 78 18 198/81 (120) 95 09/09/18 08:00 Room Air General Appearance: No Apparent Distress, WD/WN, Chronically ill Neurologic/Psychiatric: Alert, No Motor/Sensory Deficits, Normal Mood/Affect, Disoriented Hospital Course Hospital course: Patient had an uneventful hospital course she was placed on IV fluid of normal saline to correct the dehydration with hypernatremia and placed on oral fluid restriction of free water. UTI was treated with antibiotics and patient ultimately returned back to baseline which was severe dementia and confusion at baseline. Hospice was discussed with the family by palliative care nurse but they wanted to return home and possibly visit hospice enrollment in the future. residential was declined. Labs (last 24 hrs) Laboratory Tests 09/08/18 15:04: Glucometer 99 09/08/18 20:01: Glucometer 191H 09/09/18 05:25: Glucometer 78 09/09/18 05:45: White Blood Count 4.0L, Red Blood Count 2.90L, Hemoglobin 9.0L, Hematocrit 27L, Mean Corpuscular Volume 93, Mean Corpuscular Hemoglobin 31, Mean Corpuscular Hemoglobin Concent 34, Red Cell Distribution Width 14.3, Platelet Count 255, Mean Platelet Volume 7.9, Neutrophils (%) (Auto) 58, Lymphocytes (%) (Auto) 16, Monocytes (%) (Auto) 16H, Eosinophils (%) (Auto) 9, Basophils (%) (Auto) 1, Neutrophils # (Auto) 2.3, Lymphocytes # (Auto) 0.6L, Monocytes # (Auto) 0.6, Eosinophils # (Auto) 0.4H, Basophils # (Auto) 0.0, Sodium Level 135, Potassium Level 3.5L, Chloride Level 100, Carbon Dioxide Level 27, Anion Gap 8, Blood Urea Nitrogen 10, Creatinine 0.71, Estimat Glomerular Filtration Rate > 60, BUN/ Creatinine Ratio 14, Glucose Level 57*L, Calcium Level 8.9, Corrected Calcium 9.7, Total Bilirubin 0.3, Aspartate Amino Transf (AST/SGOT) 16, Alanine Aminotransferase (ALT/SGPT) 8, Alkaline Phosphatase 61, Total Protein 5.6L, Albumin 3.0L 09/09/18 06:41: Glucometer 81 09/09/18 10:19: Glucometer 69L Microbiology 09/06/18 Blood Culture - Preliminary, Resulted No growth 09/06/18 Urine Culture - Final, Complete Enterococcus faecalis Patient resulted labs reviewed. Pending Labs Laboratory Tests 09/09/18 05:25: Glucometer 78 09/09/18 05:45: White Blood Count 4.0, Red Blood Count 2.90, Hemoglobin 9.0, Hematocrit 27, Mean Corpuscular Volume 93, Mean Corpuscular Hemoglobin 31, Mean Corpuscular Hemoglobin Concent 34, Red Cell Distribution Width 14.3, Platelet Count 255, Mean Platelet Volume 7.9, Neutrophils (%) (Auto) 58, Lymphocytes (%) (Auto) 16, Monocytes (%) (Auto) 16, Eosinophils (%) (Auto) 9, Basophils (%) (Auto) 1, Neutrophils # (Auto) 2.3, Lymphocytes # (Auto) 0.6, Monocytes # (Auto) 0.6, Eosinophils # (Auto) 0.4, Basophils # (Auto) 0.0, Sodium Level 135, Potassium Level 3.5, Chloride Level 100, Carbon Dioxide Level 27, Anion Gap 8, Blood Urea Nitrogen 10, Creatinine 0.71, Estimat Glomerular Filtration Rate > 60, BUN/ Creatinine Ratio 14, Glucose Level 57, Calcium Level 8.9, Corrected Calcium 9.7 , Total Bilirubin 0.3, Aspartate Amino Transf (AST/SGOT) 16, Alanine Aminotransferase (ALT/SGPT) 8, Alkaline Phosphatase 61, Total Protein 5.6, Albumin 3.0 09/09/18 06:41: Glucometer 81 09/09/18 10:19: Glucometer 69 Discussion & Recommendations Discharge Planning: <30 minutes discharge planning Discharge Home Medications: Active Scripts Active Amlodipine Besylate 5 Mg Tablet 5 Mg PO DAILY Ciprofloxacin HCl 500 Mg Tablet 500 Mg PO BID Protonix (Pantoprazole Sodium) 40 Mg Tablet.dr 40 Mg PO DAILY 14 Days Reported Cranberry 12,600 mg Softgel (Cranberry Conc/Ascorbic Acid) 1 Each Capsule 2 Each PO DAILY Caltrate 600 + D Tablet (Calcium Carbonate/Vitamin D3) 1 Each Tablet 1 Each PO BID Women's Daily Caplet (Multivits,Ca,Minerals/Iron/FA) 1 Each Tablet 1 Each PO DAILY Desmopressin Acetate 0.2 Mg Tablet 0.2 Mg PO HS Triamcinolone Acetonide 0.1% Cream (Triamcinolone Acet) 15 Gm Cr 1 Gm TP DAILY Letrozole 2.5 Mg Tablet 2.5 Mg PO DAILY Lantus Solostar (Insulin Glargine,Hum.rec.anlog) 100 Unit/1 Ml Insuln.pen 20 Unit SQ HS Zantac (Ranitidine HCl) 150 Mg Tablet 150 Mg PO DAILY PRN Thera Tears (Carboxymethylcellulose Sodium) 15 Ml Drops 1-2 Drops OU QID PRN [Trubiotic] 1 Tab PO 1200 Magnesium (Magnesium Oxide) 400 Mg Capsule 500 Mg PO 1200 Ocuvite Softgel (Vit C/Vit E/Lutein/Min/[place]-3) 1 Each Capsule 1 Cap PO DAILY Citalopram HBr (Citalopram Hydrobromide) 10 Mg Tablet 10 Mg PO HS Vesicare (Solifenacin Succinate) 5 Mg Tablet 10 Mg PO DAILY Amitriptyline HCl 25 Mg Tablet 25 Mg PO HS Lisinopril 20 Mg Tablet 20 Mg PO DAILY Instructions to patient/family Please see electronic discharge instructions given to patient. Clinical Quality Measures DVT/VTE Risk/Contraindication: Risk Factor Score Per Nursin RFS Level Per Nursing on Admit: 4+=Very High Problem Qualifiers (1) Dementia: Dementia type: Alzheimer's disease Alzheimer's disease onset: unspecified onset Dementia behavioral disturbance: without behavioral disturbance Qualified Codes: G30.9 - Alzheimer's disease, unspecified; F02.80 - Dementia in other diseases classified elsewhere without behavioral disturbance (2) Urinary tract infection: Urinary tract infection type: acute cystitis Hematuria presence: without hematuria Qualified Codes: N30.00 - Acute cystitis without hematuria LIBORIO FELDMAN DO Sep 09, 2018 09:00
--- NOTE | 2018-09-09 09:33 | NUR ---
DISCHARGE PLANNING: This RN call and spoke to patients son-in-law Isauro about discharge plans. Yesterday I had suggested that hospice might be beneficial in the care of this patient who seems to have had a significant decline in her dementia process. He had spoken to his and they are likely going to interview once patient returns to the home. Explain to him the process and if he needed any help post discharge that he could call. I informed Dr. Mcdowell of the plan for discharge to home today. No additional needs voiced.
[2018-09-09] MEDS: MAGNESIUM OXIDE (MAG-OX)400 MG TAB PO SCH (11:50)
[2018-09-09] MEDS: ENOXAPARIN 40 MG/0.4 ML (LOVENOX) SYR SC SCH (11:50)
--- NOTE | 2018-09-09 14:03 | NUR ---
CM/SS as family would now like to try for a SNF, referral packet was sent to [facility] as patient's family's first choice facility. Spoke to Cirilo at [facility], he will review the information and get back on to if they have beds available or can accept her as Skilled.
--- NOTE | 2018-09-09 15:10 | NUR ---
Pastoral Care Visit.
[2018-09-09 15:40] VITALS: BP 177/72
--- NOTE | 2018-09-09 16:47 | Occupational Ther Daily Note ---
OT Current Status-Daily Note Subjective Pt seen in room, up in recliner, agreeable to OT. No pain mentioned Appearance Alert, cooperative Mental Status/Objective Therapy Code Descriptions/Definitions Functional Morgan Measure: 0=Not Assessed/NA 4=Minimal Assistance 1=Total Assistance 5=Supervision or Setup 2=Maximal Assistance 6=Modified Morgan 3=Moderate Assistance 7=Complete Morgan ADL-Treatment Pt agreed to ADLs. Skilled cue to take cap off toothpaste, assist to put toothpaste on toothbrush. She was able to brush her teeth and rinse mouth, cue to find basin. Pt found washcloth to wipe mouth off after brushing teeth. Pt left up in recliner, all needs met. Grooming (FIM): 5 Education OT Patient Education: Purpose of tx/functional activities Teaching Recipient: Patient Teaching Methods: Discussion Response to Teaching: Return Demonstration, Reinforcement Needed OT Short Term Goals Short Term Goals 1=Demonstrate adherence to instructed precautions during ADL tasks. 2=Patient will verbalize/demonstrate understanding of assistive devices/ modifications for ADL. 3=Patient will improve strength/tolerance for activity to enable patient to perform ADL's. OT Retirement Goals Delivery Agent Goals Time Frame: Sep 10, 2018 Grooming(FIM): 5 Toileting(FIM): 3 Toilet/Commode Transfer(FIM): 5 (SBA) Additional Goals: 3-ImproveStrength/Pedro 1=Demonstrate adherence to instructed precautions during ADL tasks. 2=Patient will verbalize/demonstrate understanding of assistive devices/ modifications for ADL. 3=Patient will improve strength/tolerance for activity to enable patient to perform ADL's. OT Education/Plan Discharge Recommendations Plan/Recommendations: Continue POC Treatment Plan/Plan of Care Patient would benefit from OT for education, treatment and training to promote independence in ADL's, mobility, safety and/or upper extremity function for ADL' s. Plan of Care: ADL Retraining Treatment Duration: Sep 10, 2018 Frequency: 3 times per week Estimated Hrs Per Day: .25 hour per day Agreement: Yes Rehab Potential: Guarded Time/GCodes Start Time: 15:12 Stop Time: 15:28 Total Time Billed (hr/min): 16 Billed Treatment Time visit, 16 minutes ADL RENAN ODONNELL OT Sep 09, 2018 16:47
[2018-09-09] MEDS: ALPRAZolam 0.25 MG (XANAX) TAB PO PRN (17:20)
[2018-09-09] MEDS: ACETAMINOPHEN 325 MG TABLET PO PRN (17:21)
[2018-09-09] MEDS: DESMOPRESSIN 0.2 MG TAB (NON-FORMULARY) PO SCH (20:23)
[2018-09-09] MEDS: AMITRIPTYLINE 25 MG (ELAVIL) TAB PO SCH (20:23)
[2018-09-09] MEDS: inSUlin DETERMIR 1 UNIT/0.01 ML (LEVEMIR) CHARGE PER UNIT SQ SCH (20:24)
[2018-09-10 00:06] VITALS: BP 161/83
[2018-09-10] MEDS: diphenhydrAMINE 25 MG TAB (BENADRYL) PO PRN (03:22)
[2018-09-10] MEDS: PANTOPRAZOLE 40 MG (PROTONIX) TAB PO SCH (06:28)
[2018-09-10] MEDS: TROSPIUM 20 MG (SANCTURA) TAB PO SCH (06:28)
[2018-09-10] MEDS: CALCIUM CARB + VIT D 600 MG (CALCARB + D) TAB PO SCH (06:28)
[2018-09-10] MEDS: inSUlin ASPART (NovoLOG) 1 UNIT/0.01 ML (CHARGE PER UNIT) SC SCH ×3 (06:29→15:17)
[2018-09-10] MEDS: KCL 10 MEQ TAB (MICRO K) PO SCH (06:29)
[2018-09-10 08:00] VITALS: BP 164/70
[2018-09-10] MEDS: lisINopril 20 MG (PRINIVIL) TABLET PO SCH (08:05)
[2018-09-10] MEDS: TRIAMCINOLONE 0.1% CR (KENALOG) 15 GM TUBE TP SCH (08:05)
[2018-09-10] MEDS: LETROZOLE 2.5 MG (FEMARA) TAB PO SCH (08:05)
[2018-09-10] MEDS: amLODIPine 5 MG (NORVASC) TAB PO SCH (08:05)
[2018-09-10] MEDS: CIPROFLOXACIN 500 MG (CIPRO) TABLET PO SCH (08:05)
--- NOTE | 2018-09-10 09:14 | Physical Therapy Progress Note ---
Therapy Progress Note Patient declined PT on this date stating, "I just want to go home. I want someone to tell me what is going on." Nursing notified. PT to dismiss patient from services due to dismissal to NH. 1 ref KAI LICEA PT Sep 10, 2018 09:14
--- NOTE | 2018-09-10 10:28 | NUR ---
CM/SS [facility] is here to evaluate the patient before making a decision on acceptance to their facility for Skilled. Daughter, Selena ([phone]) will be at hospital around noon this day and the family is planning to take patient home after a skilled stay.
--- NOTE | 2018-09-10 10:44 | Discharge Inst-Skilled Nursing ---
Discharge Inst-Skilled NF Patient Instructions Patient Problems: UTI Hyponatremia Dementia Falls Goal: Independent ADL's Consult/Follow Up/Orders Follow Up Appt.: Dr Jaramillo in 1 week Skilled NF Admit to: [facility] Certification (SNF) I certify that SNF services are required to be given on an inpatient basis because of the above named patient's need for long-term care on a continuing basis for the conditions(s) for which he/she was receiving inpatient hospital services prior to his/her transfer to the SNF. Group Home Facility Order: Nursing Services, Train Station Server-Evaluate & Treat, Physical Therapy-Evaluate & Treat, Speech Language-Evaluate & Treat Discharge Diet: Other Diet (fluid restriction 1200cc/day) Daily Activity as Tolerated: Yes New & Resume Previous Orders Pauline Mcdowell Sep 10, 2018 10:43 PAULINE MCDOWELL DO Sep 10, 2018 10:44
--- NOTE | 2018-09-10 10:45 | Discharge Summary-Hospitalist ---
Diagnosis/Chief Complaint Date of Admission Sep 06, 2018 at 16:36 Date of Discharge Discharge Date: Sep 10, 2018 Admission Diagnosis Hyponatremia Altered mental status Baseline dementia Hypertension Acute UTI Discharge Diagnosis (1) Hyponatremia Status: Resolved (2) Dementia Status: Chronic (3) Debility Status: Chronic (4) Urinary tract infection Status: Acute (5) History of uterine cancer Status: Chronic Discharge Summary Discharge Physical Exam Allergies: Coded Allergies: miconazole (Verified Allergy, Intermediate, RASH, 04/21/17) rash/hives ampicillin (Unverified Allergy, Unknown, 04/21/17) lanolin (Unverified Allergy, Unknown, 04/21/17) Kivzjpw-Ztw-Qok Reductase Inhibitor (Unverified Adverse Reaction, Unknown , 04/21/17) adhesive tape (Unverified Adverse Reaction, Unknown, 04/21/17) latex (Unverified Adverse Reaction, Unknown, 04/21/17) Vitals & I&Os Vital Signs Date Time Temp Pulse Resp B/P (MAP) Pulse Ox O2 Delivery O2 Flow Rate FiO2 09/10/18 15:14 74 18 164/70 96 Room Air 09/10/18 08:00 98.2 General Appearance: No Apparent Distress, WD/WN, Chronically ill Neurologic/Psychiatric: Alert, No Motor/Sensory Deficits, Normal Mood/Affect, Disoriented Hospital Course Hospital course: Patient had no change in hospital course from previously dictated hospital course discharge summary but family changed their mind and wanted [facility] to go to [facility] so via [facility] was arranged and patient was discharged in improved condition but overall prognosis poor considering the severity of her dementia. Fluid restriction will be maintained in close follow-up with her primary care provider Dr. Jaramillo will be completed in one week. Labs (last 24 hrs) Laboratory Tests 09/10/18 15:08: Glucometer 92 Microbiology 09/06/18 Blood Culture - Preliminary, Resulted No growth 09/06/18 Urine Culture - Final, Complete Enterococcus faecalis Patient resulted labs reviewed. Pending Labs Discussion & Recommendations Discharge Planning: <30 minutes discharge planning Discharge Home Medications: Active Scripts Active Amlodipine Besylate 5 Mg Tablet 5 Mg PO DAILY Ciprofloxacin HCl 500 Mg Tablet 500 Mg PO BID Protonix (Pantoprazole Sodium) 40 Mg Tablet.dr 40 Mg PO DAILY 14 Days Reported Cranberry 12,600 mg Softgel (Cranberry Conc/Ascorbic Acid) 1 Each Capsule 2 Each PO DAILY Caltrate 600 + D Tablet (Calcium Carbonate/Vitamin D3) 1 Each Tablet 1 Each PO BID Women's Daily Caplet (Multivits,Ca,Minerals/Iron/FA) 1 Each Tablet 1 Each PO DAILY Desmopressin Acetate 0.2 Mg Tablet 0.2 Mg PO HS Triamcinolone Acetonide 0.1% Cream (Triamcinolone Acet) 15 Gm Cr 1 Gm TP DAILY Letrozole 2.5 Mg Tablet 2.5 Mg PO DAILY Lantus Solostar (Insulin Glargine,Hum.rec.anlog) 100 Unit/1 Ml Insuln.pen 20 Unit SQ HS Zantac (Ranitidine HCl) 150 Mg Tablet 150 Mg PO DAILY PRN Thera Tears (Carboxymethylcellulose Sodium) 15 Ml Drops 1-2 Drops OU QID PRN [Trubiotic] 1 Tab PO 1200 Magnesium (Magnesium Oxide) 400 Mg Capsule 500 Mg PO 1200 Ocuvite Softgel (Vit C/Vit E/Lutein/Min/[place]-3) 1 Each Capsule 1 Cap PO DAILY Citalopram HBr (Citalopram Hydrobromide) 10 Mg Tablet 10 Mg PO HS Vesicare (Solifenacin Succinate) 5 Mg Tablet 10 Mg PO DAILY Amitriptyline HCl 25 Mg Tablet 25 Mg PO HS Lisinopril 20 Mg Tablet 20 Mg PO DAILY Instructions to patient/family Please see electronic discharge instructions given to patient. Clinical Quality Measures DVT/VTE Risk/Contraindication: Risk Factor Score Per Nursin RFS Level Per Nursing on Admit: 4+=Very High Problem Qualifiers (1) Dementia: Dementia type: Alzheimer's disease Alzheimer's disease onset: unspecified onset Dementia behavioral disturbance: without behavioral disturbance Qualified Codes: G30.9 - Alzheimer's disease, unspecified; F02.80 - Dementia in other diseases classified elsewhere without behavioral disturbance (2) Urinary tract infection: Urinary tract infection type: acute cystitis Hematuria presence: without hematuria Qualified Codes: N30.00 - Acute cystitis without hematuria LIBORIO FELDMAN DO Sep 10, 2018 10:45
--- NOTE | 2018-09-10 11:37 | NUR ---
CM/SS [facility] has accepted the patient and will transport her this day at around 1430.
[2018-09-10] MEDS: MAGNESIUM OXIDE (MAG-OX)400 MG TAB PO SCH (11:56)
[2018-09-10] MEDS: ENOXAPARIN 40 MG/0.4 ML (LOVENOX) SYR SC SCH (11:57)
--- NOTE | 2018-09-10 13:48 | NUR ---
THE NURSE FROM [facility] CALLED BACK TO GET REPORT
--- NOTE | 2018-09-10 14:22 | NUR ---
CM/SS completed the CARE assessment with the patient and her daughter(POA). Copy to [facility], [facility], and patient chart.
[2018-09-10 15:14] VITALS: BP 164/70
== END 2018-09-10 15:15 | DRG 641 ==
LOC: EDUNIT# 14:03 → ER 14:04 → 4TH 16:36
PROVIDERS: ADMIT Internal Medicine; ATTEND Internal Medicine
DX: E87.1 Hypo-osmolality and hyponatremia (principal); N30.00 Acute cystitis without hematuria; B95.2 Enterococcus as the cause of diseases classified elsewhere; I10 Essential (primary) hypertension; G30.9 Alzheimer's disease, unspecified; F02.80 Dementia in other diseases classified elsewhere, unspecified severity, without behavioral disturbance, psychotic disturbance, mood disturbance, and anxiety; E11.40 Type 2 diabetes mellitus with diabetic neuropathy, unspecified; M19.91 Primary osteoarthritis, unspecified site; E66.9 Obesity, unspecified; Z66 Do not resuscitate; H35.30 Unspecified macular degeneration; R63.0 Anorexia; G47.9 Sleep disorder, unspecified; R53.81 Other malaise; Z68.37 Body mass index [BMI] 37.0-37.9, adult; Z79.4 Long term (current) use of insulin; Z91.81 History of falling; Z85.42 Personal history of malignant neoplasm of other parts of uterus; Z85.44 Personal history of malignant neoplasm of other female genital organs; Z92.21 Personal history of antineoplastic chemotherapy; Z92.3 Personal history of irradiation; Z90.710 Acquired absence of both cervix and uterus; Z88.1 Allergy status to other antibiotic agents; Z88.8 Allergy status to other drugs, medicaments and biological substances
CPT/HCPCS: 36415; 70450; 71045; 80053; 81000; 82962; 83605; 84443; 84484; 85025; 86141; 87040; 87077; 87088; 87186; 90686; 93005; 96361; 96374

== ENCOUNTER 2018-09-17 01:59 | Outpatient (RCR) | payer MEDICARE, OTHER ==
[~2018-09-17 01:59] MED LIST changes: +AMLO5TAB9 PO; +CALC1TAB PO; +CIPR500T4 PO; +CRAN1CAP3 PO; +DESM0.2T29 PO; +LETR2.5T5 PO; +MULT-884 PO; +OCUVITE SOFTGE1 EACH PO; +TR1C15 TP; -VIT1CAPS9 PO
[2018-09-17 14:25] LABS: BASOPHILS % (AUTO) 1 % (0-10); EOSINOPHILS # (AUTO) 0.2 10^3/uL (0.0-0.3); EOSINOPHILS % (AUTO) 7 % (0-10); HEMATOCRIT 28 % (35-52); HEMOGLOBIN 9.5 G/DL (11.5-16.0); LYMPHOCYTES # (AUTO) 0.6 X 10^3 (1.0-4.0); LYMPHOCYTES % (AUTO) 16 % (12-44); MEAN CORPUSCULAR HEMOGLOBIN 32 PG (25-34); MEAN CORPUSCULAR HGB CONC 34 G/DL (32-36); MEAN CORPUSCULAR VOLUME 94 FL (80-99); MEAN PLATELET VOLUME 8.4 FL (7.4-10.4); MONOCYTES # (AUTO) 0.4 X 10^3 (0.0-1.0); MONOCYTES % (AUTO) 10 % (0-12); NEUTROPHILS # (AUTO) 2.3 X 10^3 (1.8-7.8); NEUTROPHILS % (AUTO) 66 % (42-75); PLATELET COUNT 295 10^3/uL (130-400); RED CELL DISTRIBUTION WIDTH 14.1 % (10.0-14.5); WHITE BLOOD COUNT 3.6 10^3/uL (4.3-11.0)
[2018-09-17 14:53] LABS: ALANINE AMINOTRANSFERASE 12 U/L (0-55); ALBUMIN 3.3 GM/DL (3.2-4.5); ALKALINE PHOSPHATASE 60 U/L (40-136); BILIRUBIN,TOTAL 0.2 MG/DL (0.1-1.0); BUN/CREATININE RATIO 21; CARBON DIOXIDE 26 MMOL/L (21-32); CHLORIDE 99 MMOL/L (98-107); CREATININE SERUM 0.84 MG/DL (0.60-1.30); GFR ESTIMATED > 60; GLUCOSE 148 MG/DL (70-105); POTASSIUM 3.7 MMOL/L (3.6-5.0); SODIUM 134 MMOL/L (135-145); TOTAL PROTEIN 6.1 GM/DL (6.4-8.2)
[2018-10-02] MEDS ORDERED: LACT1CAP39 PO (03:03)
[2018-10-02] MEDS ORDERED: NF-SOLIF5T PO (03:03)
[2018-10-02] MEDS ORDERED: GABA-486 PO (03:03)
[2018-10-02] MEDS ORDERED: MAGN400T6 PO (03:03)
[2018-10-02] MEDS ORDERED: ACET325T49 PO (03:03)
[2018-10-02] MEDS ORDERED: ALPR0.25 PO (03:03)
[2018-10-04] MEDS ORDERED: GUAI237L82 PO (10:31)
[2018-10-04] MEDS ORDERED: PANT40TA2 PO (10:31)
[2018-10-04] MEDS ORDERED: CALC-901 PO (10:31)
[2018-10-04] MEDS ORDERED: VIT1TABL26 PO (10:31)
[2018-10-04] MEDS ORDERED: AMLO5TAB9 PO (10:31)
[2018-10-04] MEDS ORDERED: CHOL5000 PO (10:31)
[2018-10-04] MEDS ORDERED: DEXT15DR23 OU (10:31)
[2018-11-12] MEDS ORDERED: ONDA4TAB11 PO (15:18)
== END 2018-12-16 | disposition home or self-care (01) ==
LOC: ONC 01:59
PROVIDERS: ATTEND Internal Medicine Hematology & Oncology
DX: C50.411 Malignant neoplasm of upper-outer quadrant of right female breast (principal); C54.1 Malignant neoplasm of endometrium; E11.319 Type 2 diabetes mellitus with unspecified diabetic retinopathy without macular edema; E11.40 Type 2 diabetes mellitus with diabetic neuropathy, unspecified; I10 Essential (primary) hypertension; E66.9 Obesity, unspecified; Z68.33 Body mass index [BMI] 33.0-33.9, adult; Z17.0 Estrogen receptor positive status [ER+]; R53.81 Other malaise; K63.9 Disease of intestine, unspecified; Z90.710 Acquired absence of both cervix and uterus; Z79.4 Long term (current) use of insulin; Z79.899 Other long term (current) drug therapy
CPT/HCPCS: 36591; 80053; 82728; 83540; 85025

== ENCOUNTER 2018-10-01 15:50 | Inpatient (IN) | payer MEDICARE, OTHER ==
[~2018-10-01] VITALS: Ht 160 cm; Wt 78.9 kg
[~2018-10-01 15:50] MED LIST changes: +DESM0.2T2 PO; -DESM0.2T29 PO; -OCUVITE SOFTGE1 EACH PO; +VIT1CAPS9 PO
--- OUTSIDE RECORDS SUMMARY | 2018-10-01 15:57 | XMS REPORT | Encounter Summary ---
Author Author [facility] Organization [facility] Address Unknown Phone Unavailable Care Team Providers Care Risk Assessment Consultant Name Role Phone Missael Jaramillo MD PCP Nadege Knapp RN Unavailable Unavailable Natasha Echols MD Unavailable Reason for Visit * Reason Comments Results Encounter Details Care Team Description Date Type Department Kirk Cho DO [address] [place] [address] [phone] Results 08/09/2018 Telephone [facility] - IC Exam [address] [place] [address] Social History Date Tobacco Use Types Packs/Day [...] Ruchi Bills RN - 08/09/2018 11:33 AM RN CHEMICAL DEPENDENCY Left message for patient with results of [...] signed and approved by: Mauro Pacheco M.D. [id number] IMPRESSION ACR BI-RADS Assessments: BIRAD 2-Benign RECOMMENDATION: Routine screening mammogram in 1 year. CHEMICAL DEPENDENCY in this encounter Plan of Treatment Not on fileas of this encounter Visit Diagnoses Not on filein this encounter
--- OUTSIDE RECORDS SUMMARY | 2018-10-01 15:57 | XMS REPORT | Clinical Summary ---
Author Author [facility] Organization [facility] Address Unknown Phone Unavailable Care Team Providers Care Balance Wheel Screw Hole Driller Name Role Phone Missael Jaramillo MD PCP Nadege Knapp RN Unavailable Unavailable Natasha Echols MD Unavailable Source Comments Some departments are not documenting in the electronic medical record. If you do not see the information that you expected, contact Release of Information in the Health Information Management department at [phone] for further assistance in locating additional records.[facility] Allergies Comments Active Allergy Reactions Severity Noted Date Amoxicillin RASH Medium 05/07/2015 Chocolate HEADACHE Low 05/07/2015 Irbesartan RASH Medium 10/02/2017 Patient experiences swelling and hot skin to the touch. 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 Right breast sono-guided biopsy 05/11/17 ([place], [place]) revealed grade 2 invasive ductal carcinoma. Ms. Nicole has been followed by Dr. Tello and is currently getting endocrine therapy. A PET/CT was ordered in May 2017 which showed abnormal uptake in the pelvis and there was a possible rectosigmoid mass. Ms. Nicole underwent right lumpectomy on 10/29/17. PATHOLOGY: Tumor: 1.5 cm ILC Margins Free From Tumor: Yes ER: positive MS: positive Her 2: negative Grade: 2 LVSI: no BREAST IMAGING: Mammogram: -- Bilateral screening mammogram 04/16/17 ([place], [place]) revealed scattered fibroglandular densities. In the [...] unremarkable. Ultrasound: -- Right breast ultrasound 05/06/17 ([place], [place]) revealed a poorly defined spiculated hypoechoic mass measuring 1.6 x 1.5 x 1.6 cm in the region of mammogram finding. There was internal blood flow. Biopsy was recommended. -- Right breast ultrasound 08/19/17 ([place], [place]) revealed at 9:30, 6 cm FTN, there was a hypoechoic mass with irregular margins measuring 1.3 x 1.5 x 1.4 cm and demonstrated internal vascularity which appeared slightly less prominent compared to previous exam. This was minimally smaller in size compared to prior measurement of 1.6 x 1.5 x 1.6 cm. -- Right breast ultrasound 09/16/17 ([place], [place]) revealed at 9:30, 6 cm FTN [...] axillary lymph node. Other: -- PET/CT 05/19/17 ([place], [place]) revealed abnormal uptake involving the left [...] history of hysterectomy 05/15/[address] Mario Michale in [place], [place] with a diagnosis of endometrial FIGO grade 1. Per pt., was told that they got it all and did not need further tx. Pt. has not had annual pelvic examinations or f/u since that time. 2. Pt. was referred from PCP Dr. Jaramillo to RESPIRATORY CARE ASSISTANT Dr. Salinas in [place], [place] on 04/18/15 for post-menopausal bleeding beginning [...] her CT Scan, which was done in [place], I suspect the areas of interest are: [...] thought of traveling from her home in [place] to the cancer center, radiation/chemotherapy. I also discussed her options should she decline any therapy-would recommend hospice. Consideration for epidural pain pump in the event of progressive pain. I have contacted the [facility] [place] and she has been scheduled with one [...] Taken Vital Sign Reading 08/03/2018 2:16 PM LENS COATING TECHNICIAN Blood Pressure 158/61 08/03/2018 2:16 PM LENS COATING TECHNICIAN Pulse 65 08/03/2018 2:16 PM LENS COATING TECHNICIAN Temperature 36.8 C (98.2 F) 08/03/2018 2:16 PM LENS COATING TECHNICIAN Respiratory Rate 18 08/03/2018 2:16 PM LENS COATING TECHNICIAN Oxygen Saturation 100% - Inhaled Oxygen - Concentration 08/03/2018 2:16 PM LENS COATING TECHNICIAN Weight 83.7 kg (184 lb 9.6 oz) 08/03/2018 2:16 PM LENS COATING TECHNICIAN Height 154.9 cm (5' 1") 08/03/2018 2:16 PM LENS COATING TECHNICIAN Body Mass Index 34.88 Plan of Treatment [...] Type Area Manufactur er 06/02/2018 / / [id number] Smark-10/08/2017 Clip Implanted: Qty: 1 on 10/08/2017 by Mauro Pacheco MD Procedures Comments Procedure Name Priority Date/Time Associated Diagnosis MAMMO DIAGNOSTIC JUAN PABLO/DAYANA Routine 08/03/2018 Malignant neoplasm of 3:15 PM LENS COATING TECHNICIAN upper-outer quadrant of right breast in female, estrogen receptor positive (HCC) from Last 3 Months Results * MAMMO DIAGNOSTIC JUAN PABLO/DAYANA (08/03/2018 3:15 PM LENS COATING TECHNICIAN) Impressions Performed At [facility] BI-RADS Assessments: BIRAD 2-Benign KU RAD RESULTS RECOMMENDATION: Routine screening mammogram in 1 year. Narrative Performed At Last mammogram was performed 1 year and 3 months ago. KU RAD RESULTS Reason for exam: history of breast cancer, conservation therapy. first time back since surgery [id number] MAMMO DIAGNOSTIC JUAN PABLO/DAYANA: AUGUST 03, 2018 - 2D/3D Procedure 3D Routine views. 2D Routine views. Technologists: Angie Young, Staff Pharmacist Hospital; Eladia Goodson Prior study comparison: October 08, 2017, right breast [id number] MAMMO DIAG RT performed at [facility].October 02, 2017, right breast [id number] MAMMO DIAGNOSTIC RT/DAYANA performed at [facility]. May 11, 2017, mammogram.April 16, 2017, mammogram. [...] signed and approved by: Mauro Pacheco M.D. [id number] Procedure Note Interface, Radiant Results - 08/03/2018 3:43 PM LENS COATING TECHNICIAN Last mammogram was performed 1 year and 3 months ago. Reason for exam: history of breast cancer, conservation therapy. first time back since surgery [id number] MAMMO DIAGNOSTIC JUAN PABLO/DAYANA: AUGUST 03, 2018 - 2D/3D Procedure 3D Routine views. 2D Routine views. Technologists: Angie Young, Staff Pharmacist Hospital; Eladia Goodson Prior study comparison: October 08, 2017, right breast [id number] MAMMO DIAG RT performed at [facility]. October 02, 2017, right breast [id number] MAMMO DIAGNOSTIC RT/DAYANA performed at [facility]. May 11, 2017, mammogram. April 16, 2017, [...] signed and approved by: Mauro Pacheco M.D. [id number] IMPRESSION ACR BI-RADS Assessments: BIRAD 2-Benign RECOMMENDATION: [...] on file. For more information, please contact: [facility] [address] [place] [address]
--- OUTSIDE RECORDS SUMMARY | 2018-10-01 15:57 | XMS REPORT | Encounter Summary ---
Author Author [facility] Organization [facility] Address Unknown Phone Unavailable Care Team Providers Care Construction Contractor Name Role Phone Missael Jaramillo MD PCP Nadege Knapp RN Unavailable Unavailable Natasha Echols MD Unavailable Reason for Visit * Reason Comments Heme/Onc Care Encounter Details Care Team Description Date Type Department Kirk Cho DO [address] [place] [address] [phone] Franca Bills PA-C [address] [place] [address] [phone] Malignant neoplasm of upper-outer quadrant of right breast in female, estrogen receptor positive (HCC) (Primary Dx) 08/03/2018 Office Visit [facility] - IC Exam [id number] [place], [place] [address] Social History Date Tobacco Use Types Packs/Day [...] Taken Vital Sign Reading 08/03/2018 2:16 PM PARATRANSIT OPERATOR Blood Pressure 158/61 08/03/2018 2:16 PM PARATRANSIT OPERATOR Pulse 65 08/03/2018 2:16 PM PARATRANSIT OPERATOR Temperature 36.8 C (98.2 F) 08/03/2018 2:16 PM PARATRANSIT OPERATOR Respiratory Rate 18 08/03/2018 2:16 PM PARATRANSIT OPERATOR Oxygen Saturation 100% - Inhaled Oxygen - Concentration 08/03/2018 2:16 PM PARATRANSIT OPERATOR Weight 83.7 kg (184 lb 9.6 oz) 08/03/2018 2:16 PM PARATRANSIT OPERATOR Height 154.9 cm (5' 1") 08/03/2018 2:16 PM PARATRANSIT OPERATOR Body Mass Index 34.88 in this encounter [...] Franca Bills PA-C - 08/03/2018 2:15 PM PARATRANSIT OPERATOR Name: Ayleen Nicole : 1940 AGE: 78 y.o. DATE OF SERVICE: 08/03/2018 Cancer Staging Malignant neoplasm of upper-outer quadrant of right breast in female, estrogen receptor positive (HCC) Staging form: Breast, AJCC 8th Edition - Clinical stage from 05/06/2017: Stage IA (cT1c, cN0, cM0, G2, ER: Positive, IA : Positive, HER2: Negative) - Signed by Franca Bills PA-C on 09/21/2017 - Pathologic stage from 10/29/2017: Stage IA (pT1c, pN0, cM0, G2, ER: Positive, IA: Positive, HER2: Negative) - Signed by Franca [...] was recommended. Right breast sono-guided biopsy 05/11/17 ([place], [place]) revealed grade 2 invasive ductal carcinoma. Ms. Nicole has been followed by Dr. Tello and is currently getting endocrine therapy. A PET/CT was ordered in May 2017 which showed abnormal uptake in the pelvis and there was a possible rectosigmoid mass. Ms. Nicole underwent right lumpectomy on 10/29/17. PATHOLOGY: Tumor: 1.5 cm ILC Margins Free From Tumor: Yes ER: positive IA: positive Her 2: negative Grade: 2 LVSI: no BREAST IMAGING: Mammogram: -- Bilateral screening mammogram 04/16/17 ([place], [place]) revealed scattered fibroglandular densities. In the [...] unremarkable. Ultrasound: -- Right breast ultrasound 05/06/17 ([place], [place]) revealed a poorly defined spiculated hypoechoic mass measuring 1.6 x 1.5 x 1.6 cm in the region of mammogram finding. There was internal blood flow. Biopsy was recommended. -- Right breast ultrasound 08/19/17 ([place], [place]) revealed at 9:30, 6 cm FTN, there was a hypoechoic mass with irregular margins measuring 1.3 x 1.5 x 1.4 cm and demonstrated internal vascularity which appeared slightly less prominent compared to previous exam. This was minimally smaller in size compared to prior measurement of 1.6 x 1.5 x 1.6 cm. -- Right breast ultrasound 09/16/17 ([place], [place]) revealed at 9:30, 6 cm FTN [...] axillary lymph node. Other: -- PET/CT 05/19/17 ([place], [place]) revealed abnormal uptake involving the left [...] RASH Irbesartan RASH Latex RASH and ITCHING Uctjvqj-Htt-Tsw Reductase Inhibitors HEADACHE and RASH Chocolate HEADACHE [...] LUMPECTOMY performed by Kirk Cho DO at [facility] OR/PERIOP COLONOSCOPY HX CATARACT REMOVAL HX REFRACTIVE [...] a lot of difficulty getting up to [place]. She can continue mammograms and breast exams [...] Cho. 1. Continue follow up with Dr. Dlae 2. Bilateral diagnostic mammogram today 3. RTC PRN Franca Bills PA-C TRANSIT OPERATOR in this encounter Plan of Treatment Not on fileas of this encounter Visit Diagnoses Diagnosis Malignant neoplasm of upper-outer quadrant of right breast in female, estrogen receptor positive (HCC) - Primary in this encounter
--- OUTSIDE RECORDS SUMMARY | 2018-10-01 15:57 | XMS REPORT | Encounter Summary ---
Author Author [facility] Organization [facility] Address Unknown Phone Unavailable Care Team Providers Care Precision Dyer Name Role Phone Missael Jaramillo MD PCP Nadege Knapp RN Unavailable Unavailable Natasha Echols MD Unavailable Reason for Visit * Radiology Services (Routine) Referred By Contact Referred To Contact Status Reason Specialty Diagnoses / Procedures Franca Bills PA-C [address] [place] [address] [id number] Mammo [address] [place] [address] No Auth Needed Radiology Diagnoses [id number] P rocedures DIGITAL MAMMO SCREEN BILAT HR/DAYANA/CAD DIGITAL MAMMO DX JUAN PABLO DAYANA Encounter Details Care Team Description Date Type Department Kirk Cho DO [address] [place] [address] [phone] 08/03/2018 [facility] Encounter [facility] [address] [place] [address] Social History Date Tobacco Use Types Packs/Day [...] Routine 08/03/2018 Malignant neoplasm of 3:15 PM BUSINESS LIBRARIAN upper-outer quadrant of right breast in female, estrogen receptor positive (HCC) in this encounter Results * MAMMO DIAGNOSTIC JUAN PABLO/DAYANA (08/03/2018 3:15 PM BUSINESS LIBRARIAN) Impressions Performed At [facility] BI-RADS Assessments: BIRAD 2-Benign [facility] RESULTS RECOMMENDATION: Routine screening mammogram in 1 year. Narrative Performed At Last mammogram was performed 1 year and 3 months ago. [facility] RESULTS Reason for exam: history of breast cancer, conservation therapy. first time back since surgery [id number] MAMMO DIAGNOSTIC JUAN PABLO/DAYANA: AUGUST 03, 2018 - 2D/3D Procedure 3D Routine views. 2D Routine views. Technologists: Angie Young, Architectural Inspector; Eladia Goodson Prior study comparison: October 08, 2017, right breast [id number] MAMMO DIAG RT performed at [facility].October 02, 2017, right breast [id number] MAMMO DIAGNOSTIC RT/DAYANA performed at [facility]. May 11, 2017, mammogram.April 16, [...] signed and approved by: Mauro Pacheco M.D. [id number] Procedure Note Interface, Radiant Results - 08/03/2018 3:43 PM BUSINESS LIBRARIAN Last mammogram was performed 1 year and 3 months ago. Reason for exam: history of breast cancer, conservation therapy. first time back since surgery [id number] MAMMO DIAGNOSTIC JUAN PABLO/DAYANA: AUGUST 03, 2018 - 2D/3D Procedure 3D Routine views. 2D Routine views. Technologists: Angie Young, Architectural Inspector; Eladia Goodson Prior study comparison: October 08, 2017, right breast [id number] MAMMO DIAG RT performed at [facility]. October 02, 2017, right breast [id number] MAMMO DIAGNOSTIC RT/DAYANA performed at [facility]. May 11, 2017, mammogram. April [...] signed and approved by: Mauro Pacheco M.D. [id number] IMPRESSION ACR BI-RADS Assessments: BIRAD 2-Benign RECOMMENDATION: Routine screening mammogram in 1 year. Performing Organization Address City/State/Zipcode Phone Number [facility] RESULTS in this encounter Visit Diagnoses Diagnosis Malignant neoplasm of upper-outer quadrant of right breast in female, estrogen receptor positive (HCC) in this encounter
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
[2018-10-01] MEDS ORDERED: NS IV 1000 ML 1,000 ML IV SCH (16:00)
--- OUTSIDE RECORDS SUMMARY | 2018-10-01 16:05 | XMS REPORT | Continuity of Care Document ---
Author Author [facility] Organization [facility] Address Unknown Phone Unavailable Allergies Active Description Code Type Severity Reaction Onset Reported/Identified Relationship to Patient Clinical Status Yes LANOLIN 6227 Drug Allergy N/A N/A Yes LATEX Drug Allergy N/A N/A Yes LIPITOR [id number] Drug Allergy N/A N/A Yes STATINS Drug Allergy N/A N/A Yes SULFA Drug Allergy N/A N/A Yes metformin [id number] Drug Allergy Unknown N/A 12/23/2006 Yes miconazole [id number] Drug Allergy Moderate RASH 04/21/2017 Yes adhesive tape [id number] Drug Allergy Unknown N/A 04/21/2017 Yes ampicillin [id number] Drug Allergy Unknown N/A 04/21/2017 Yes lanolin [id number] Drug Allergy Unknown N/A 04/21/2017 Yes latex [id number] Drug Allergy Unknown N/A 04/21/2017 Yes Zjpztkp-Jbg-Elw Reductase Inhibitor [id number] Drug Allergy Unknown N/A 04/2017 Medications Medication Packaging Start Date Stop Date Route Dosage Sig LANTUS ML 07/05/2014 Subcutaneous [id number] at bedtime LYRICA 09/04/2014 ORAL 3030 at [...] FENECH DO, YANA S Ot 625.8 04/27/2015 [facility] DO, YANA S Ot 627.1 05/04/2015 LY MORALES METEOROLOGICAL ENGINEER Ot 553.1 05/04/2015 LY MORALES METEOROLOGICAL ENGINEER Ot 562.10 05/15/2015 FENECH DO, YANA S [...] LONG-TERM (CURRENT) USE OF INSULIN 06/13/2015 FABIÁN OPSADA MD, Ot V58.69 OTH MED,LT,CURRENT USE 06/13/2015 [...] MAYTE A Ot 707.19 10/10/2015 LY MORALES METEOROLOGICAL ENGINEER Ot 553.1 10/10/2015 LY MORALES METEOROLOGICAL ENGINEER Ot 562.10 10/10/2015 FENECH DO, YANA S Ot 625.8 10/10/[address] [facility] DO, YANA S Ot 627.1 10/10/2015 [...] FABIÁN Haines Ot Z79.899 10/10/2015 ANNETTE JIMENEZ METEOROLOGICAL ENGINEER Ot C54.1 10/10/2015 ANNETTE JIMENEZ METEOROLOGICAL ENGINEER Ot E11.319 10/10/2015 ANNETTE JIMENEZ METEOROLOGICAL ENGINEER Ot E66.01 10/10/2015 ANNETTE JIMENEZ METEOROLOGICAL ENGINEER Ot H54.8 10/10/2015 ANNETTE JIMENEZ METEOROLOGICAL ENGINEER Ot I10 10/10/2015 ANNETTE JIMENEZ METEOROLOGICAL ENGINEER Ot Z68.41 10/10/2015 ANNETTE JIMENEZ METEOROLOGICAL ENGINEER Ot Z79.4 10/10/2015 ANNETTE JIMENEZ METEOROLOGICAL ENGINEER Ot Z79.899 10/10/2015 MARVEL FREY, TELMA Ot [...] FABIÁN K Ot Z79.899 10/25/2015 ANNETTE JIMENEZ METEOROLOGICAL ENGINEER Ot C54.1 10/25/2015 ANNETTE JIMENEZ METEOROLOGICAL ENGINEER Ot E11.319 10/25/2015 ANNETTE JIMENEZ METEOROLOGICAL ENGINEER Ot E66.01 10/25/2015 ANNETTE JIMENEZ METEOROLOGICAL ENGINEER Ot H54.8 10/25/2015 ANNETTE JIMENEZ METEOROLOGICAL ENGINEER Ot I10 10/25/2015 ANNETTE JIMENEZ METEOROLOGICAL ENGINEER Ot Z68.41 10/25/2015 ANNETTE JIMENEZ METEOROLOGICAL ENGINEER Ot Z79.4 10/25/2015 ANNETTE JIMENEZ METEOROLOGICAL ENGINEER Ot Z79.899 10/31/2015 ALBINO FREY, FABIÁN Haines [...] Ot C54.1 MALIGNANT NEOPLASM OF ENDOMETRIUM 12/30/2015 ALIBNO FREY, FABIÁN Haines Ot E11.319 TYPE 2 [...] ADULT 12/30/2015 FABIÁN POSADA MD Ot Z79.4 MEAT CUTTER (CURRENT) USE OF INSULIN 12/30/2015 FABIÁN POSADA MD, Ot Z79.899 OTHER MEAT CUTTER (CURRENT) DRUG THERAPY 12/31/2015 FABIÁN POSADA MD, [...] ADULT 12/31/2015 FABIÁN POSADA MD, Ot Z79.4 MEAT CUTTER (CURRENT) USE OF INSULIN 12/31/2015 FABIÁN POSADA [...] ADULT 12/31/2015 FABIÁN POSADA MD Ot Z79.4 MEAT CUTTER (CURRENT) USE OF INSULIN 12/31/2015 FABIÁN POSADA [...] I89.0 LYMPHEDEMA, NOT ELSEWHERE CLASSIFIED 01/09/2016 YANA HODGSNO MD, Ot L97.221 NON-PRS CHRONIC ULCER OF [...] Ot I10 ESSENTIAL (PRIMARY) HYPERTENSION 01/10/2016 FABIÁN POASDA MD, Ot Z51.0 ENCOUNTER FOR ANTINEOPLASTIC RADIATION T 01/10/2016 FABIÁN POSADA MD, Ot Z68.41 BODY MASS INDEX (BMI) 40.0-44.9, ADULT 01/10/2016 FABIÁN POSADA MD, Ot Z79.4 MEAT CUTTER (CURRENT) USE OF INSULIN 01/10/2016 FABIÁN POSADA [...] ADULT 01/31/2016 FABIÁN POSADA MD, Ot Z79.4 MEAT CUTTER (CURRENT) USE OF INSULIN 01/31/2016 FABIÁN POSADA [...] JAMEL DO, HUGH K Ot Z79.899 OTHER MEAT CUTTER (CURRENT) DRUG THERAPY 03/20/2016 JAMEL DO, HUGH K Ot C54.1 MALIGNANT NEOPLASM OF ENDOMETRIUM 03/20/2016 HUGH MCCULLOUGH DO Ot 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 03/20/2016 HUGH MCCULLOUGH DO Ot E11.649 TYPE 2 DIABETES MELLITUS WITH HYPOGLYCEM 03/20/2016 HUGH MCCULLOUGH DO Ot E66.9 OBESITY, UNSPECIFIED 03/20/2016 HUGH MCCULLOUGH DO Ot N39.0 URINARY TRACT INFECTION, SITE NOT SPECIF 03/20/2016 HUGH MCCULLOUGH DO Ot Z79.4 MEAT CUTTER (CURRENT) USE OF INSULIN 03/20/2016 HUGH MCCULLOUGH DO Ot Z79.899 OTHER HALF-WAY (CURRENT) DRUG THERAPY 03/20/2016 COLTHARP MAYTE BAEZ A Ot 250.82 DIAB W OTH SPEC MANIFEST, TYPE II OR UNS 03/20/2016 COLTAYLORMAYTE CARDOSO DO Ot 459.81 VENOUS INSUFFICIENCY NOS 03/20/2016 COLARP MAYTE BAEZ Ot 707.19 ULCER OF OTHER PART OF LOWER LIMB 03/20/2016 LY MORALES METEOROLOGICAL ENGINEER Ot 553.1 UMBILICAL HERNIA 03/20/2016 LY MORALES METEOROLOGICAL ENGINEER Ot 562.10 DIVERTICULOSIS COLON (W/O MENT OF [...] INSULIN 03/20/2016 ANNETTE JIMENEZ Ot Z79.899 OTHER MEAT CUTTER (CURRENT) DRUG THERAPY 03/20/2016 TELMA GRIER MD, [...] 03/20/2016 FABIÁN POSADA MD, Ot Z79.899 OTHER MEAT CUTTER (CURRENT) DRUG THERAPY 03/20/2016 FABIÁN POSADA MD [...] SPECIF 03/20/2016 HUGH MCCULLOUGH DO Ot Z79.4 MEAT CUTTER (CURRENT) USE OF INSULIN 03/20/2016 HUGH MCCULLOUGH DO Ot Z79.899 OTHER HALF-WAY (CURRENT) DRUG THERAPY 03/24/2016 FABIÁN POSADA MD, Ot C54.1 MALIGNANT NEOPLASM OF ENDOMETRIUM 03/24/2016 FABIÁN POSADA MD, Ot E11.319 TYPE 2 DIABETES W [facility] DIABETIC RTNOP W/ 03/24/2016 FABIÁN POSADA MD [...] ADULT 03/24/2016 FABIÁN POSADA MD, Ot Z79.4 MEAT CUTTER (CURRENT) USE OF INSULIN 03/24/2016 FABIÁN POSADA MD, Ot Z79.899 OTHER MEAT CUTTER (CURRENT) DRUG THERAPY 04/02/2016 FABIÁN POSADA MD, Ot C54.1 MALIGNANT NEOPLASM OF ENDOMETRIUM 04/02/2016 FABIÁN POSADA MD, Ot E11.319 TYPE 2 DIABETES W [facility] DIABETIC RTNOP W04/02/2016 FABIÁN POSADA MD, Ot [...] ADULT 04/02/2016 FABIÁN POSADA MD, Ot Z79.4 MEAT CUTTER (CURRENT) USE OF INSULIN 04/02/2016 FABIÁN POSADA [...] SPECIF 04/09/2016 HUGH MCCULLOUGH DO Ot Z79.4 MEAT CUTTER (CURRENT) USE OF INSULIN 04/09/2016 HUGH MCCULLOUGH DO Ot Z79.899 OTHER MEAT CUTTER (CURRENT) DRUG THERAPY 04/10/2016 FABIÁN POSADA MD, [...] 04/10/2016 FABIÁN POSADA MD, Ot Z79.899 OTHER MEAT CUTTER (CURRENT) DRUG THERAPY 04/10/2016 COLTHMAYTE CARDOSO DO Ot 250.82 DIAB W OTH SPEC MANIFEST, TYPE II OR UNS 04/10/2016 COLMAYTE RICHMOND DO Ot 459.81 VENOUS INSUFFICIENCY NOS 04/10/2016 COLMAYTE RICHMOND DO Ot 707.19 ULCER OF OTHER PART OF LOWER LIMB 04/10/2016 LY MORALES METEOROLOGICAL ENGINEER Ot 553.1 UMBILICAL HERNIA 04/10/2016 LY MORALES METEOROLOGICAL ENGINEER Ot 562.10 DIVERTICULOSIS COLON (W/O MENT OF [...] INSULIN 04/10/2016 ANNETTE JIMENEZP Ot Z79.899 OTHER MEAT CUTTER (CURRENT) DRUG THERAPY 04/10/2016 TELMA GRIER MD [...] SPECIF 04/10/2016 HUGH MCCULLOUGH DO, Ot Z79.4 HALF-WAY (CURRENT) USE OF INSULIN 04/10/2016 HUGH MCCULLOUGH DO, Ot Z79.899 OTHER MEAT CUTTER (CURRENT) DRUG THERAPY 04/10/2016 FABIÁN POSADA MD, [...] 04/10/2016 FABIÁN POSADA MD, Ot Z79.899 OTHER MEAT CUTTER (CURRENT) DRUG THERAPY 04/24/2016 KAREN MORALES DO Ot R19.7 DIARRHEA, UNSPECIFIED 05/07/2016 KAREN MORALES DO Ot R19.7 DIARRHEA, UNSPECIFIED 05/07/2016 FABIÁN POSADA MD, Ot 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 NEOPLASM OF ENDOMETRIUM 05/07/2016 FABIÁN POSADA MD, Ot E11.319 [facility] 05/07/2016 FABIÁN [...] MD Ot E11.319 TYPE 2 DIABETES W [facility] DIABETIC RTNOP W05/07/2016 FABIÁN POSADA MD, Ot [...] ADULT 05/07/2016 FABIÁN POSADA MD, Ot Z79.4 MEAT CUTTER (CURRENT) USE OF INSULIN 05/07/2016 FABIÁN POSADA MD, Ot Z79.899 OTHER MEAT CUTTER (CURRENT) DRUG THERAPY 05/09/2016 KAREN MORALES DO Ot R19.7 DIARRHEA, UNSPECIFIED 05/26/2016 KAREN MORALES DO Ot R19.7 DIARRHEA, UNSPECIFIED 06/10/2016 FABIÁN POSADA MD, Ot 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 NEOPLASM OF ENDOMETRIUM 06/10/2016 FABIÁN POSADA MD, Ot E11.319 TYPE 2 DIABETES W [facility] DIABETIC RTNOP W/ 06/10/2016 FABIÁN POSADA MD, [...] 06/10/2016 FABIÁN POSADA MD, Ot Z79.899 OTHER MEAT CUTTER (CURRENT) DRUG THERAPY 06/13/2016 KAREN MORALES DO [...] ADULT 06/23/2016 FABIÁN POSADA MD, Ot Z79.4 MEAT CUTTER (CURRENT) USE OF INSULIN 06/23/2016 FABIÁN POSADA MD, Ot Z79.899 OTHER MEAT CUTTER (CURRENT) DRUG THERAPY 06/23/2016 KAREN MORALES DO Ot R30.0 DYSURIA 07/10/2016 COLYI BAEZ MAYTE A Ot 250.82 DIAB W OTH SPEC MANIFEST, TYPE II OR UNS 07/10/2016 COLYI BAEZ MAYTE A Ot 459.81 VENOUS INSUFFICIENCY NOS 07/10/2016 IZA BAEZ MAYTE A Ot 707.19 ULCER OF OTHER PART OF LOWER LIMB 07/10/2016 LY MORALES METEOROLOGICAL ENGINEER Ot 553.1 UMBILICAL HERNIA 07/10/2016 LY MORALES METEOROLOGICAL ENGINEER Ot 562.10 DIVERTICULOSIS COLON (W/O MENT OF [...] JIMENEZ Ot E11.319 TYPE 2 DIABETES W [facility] DIABETIC RTNOP W/ 07/10/2016 JIMENEZANNETTE Krueger DEXTER Ot E66.01 MORBID (SEVERE) OBESITY DUE TO EXCESS CA 07/10/2016 ANNETTE JIMENEZ DEXTER Ot 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, DEFINED IN [place] 07/10/2016 JIMENEZANNETTE Krueger DEXTER Ot I10 ESSENTIAL (PRIMARY) HYPERTENSION 07/10/2016 JIMENEZANNETTE Krueger DEXTER Ot Z68.41 BODY MASS INDEX (BMI) 40.0-44.9, ADULT 07/10/2016 JIMENEZANNETTE Krueger DEXTER Ot Z79.4 MEAT CUTTER (CURRENT) USE OF INSULIN 07/10/2016 JIMENEZANNETTE Krueger [...] MD Ot E11.319 TYPE 2 DIABETES W [facility] DIABETIC RTNOP W/ 07/10/2016 FABIÁN POSADA MD [...] 07/10/2016 FABIÁN POSADA MD, Ot Z79.899 OTHER MEAT CUTTER (CURRENT) DRUG THERAPY 07/10/2016 KAREN MORALES DO [...] 07/11/2016 FABIÁN POSADA MD, Ot Z79.899 OTHER MEAT CUTTER (CURRENT) DRUG THERAPY 08/01/2016 FABIÁN POSADA MD, [...] ADULT 08/13/2016 FABIÁN POSADA MD, Ot Z79.4 MEAT CUTTER (CURRENT) USE OF INSULIN 08/13/2016 FABIÁN POSADA [...] 09/11/2016 FABIÁN POSADA MD, Ot Z79.899 OTHER MEAT CUTTER (CURRENT) DRUG THERAPY 10/08/2016 FABIÁN POSADA MD, [...] ADULT 10/09/2016 FABIÁN POSADA MD, Ot Z79.4 MEAT CUTTER (CURRENT) USE OF INSULIN 10/09/2016 FABIÁN POSADA [...] ADULT 10/10/2016 FABIÁN POSADA MD, Ot Z79.4 MEAT CUTTER (CURRENT) USE OF INSULIN 10/10/2016 FABIÁN POSADA [...] ADULT 10/14/2016 FABIÁN POSADA MD, Ot Z79.4 MEAT CUTTER (CURRENT) USE OF INSULIN 10/14/2016 FABIÁN POSADA [...] ADULT 12/04/2016 FABIÁN POSADA MD, Ot Z79.4 MEAT CUTTER (CURRENT) USE OF INSULIN 12/04/2016 FABIÁN POSADA MD, Ot Z79.899 OTHER MEAT CUTTER (CURRENT) DRUG THERAPY 01/11/2017 FABIÁN POSADA MD, [...] C54.1 MALIGNANT NEOPLASM OF ENDOMETRIUM 01/12/2017 FABIÁN POSDAA MD, Ot 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 01/12/2017 FABIÁN POSADA MD, Ot E11.319 TYPE [facility]/ 01/12/2017 FABIÁN [...] 01/12/2017 FABIÁN POSADA MD, Ot Z79.899 OTHER MEAT CUTTER (CURRENT) DRUG THERAPY 01/13/2017 FABIÁN POSADA MD, Ot 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 OF ENDOMETRIUM 01/13/2017 FABIÁN POSADA MD, Ot E11.319 TYPE 2 DIABETES W [facility] DIABETIC RTNOP W/ 01/13/2017 FABIÁN POSADA MD, [...] PART OF LOWER LIMB 02/05/2017 LY MORALES METEOROLOGICAL ENGINEER Ot 553.1 UMBILICAL HERNIA 02/05/2017 LY MORALES METEOROLOGICAL ENGINEER Ot 562.10 DIVERTICULOSIS COLON (W/O MENT OF [...] JIMENEZ Ot E11.319 TYPE 2 DIABETES W [facility] DIABETIC RTNOP W/ 02/05/2017 ANNETTE JIMENEZ Ot E66.01 MORBID (SEVERE) OBESITY DUE TO EXCESS CA 02/05/2017 ANNETTE JIMENEZP Ot 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, DEFINED IN [place] 02/05/2017 ANNETTE JIMENEZ METEOROLOGICAL ENGINEER Ot I10 ESSENTIAL (PRIMARY) HYPERTENSION 02/05/2017 ANNETTE JIMENEZP Ot Z68.41 BODY MASS INDEX (BMI) 40.0-44.9, ADULT 02/05/2017 ANNETTE JIMENEZP Ot Z79.4 HALF-WAY (CURRENT) USE OF INSULIN 02/05/2017 ANNETTE JIMENEZ METEOROLOGICAL ENGINEER Ot Z79.899 OTHER MEAT CUTTER (CURRENT) DRUG THERAPY 02/05/2017 TELMA GRIER MD, [...] MD Ot E11.319 TYPE 2 DIABETES W [facility] DIABETIC RTNOP W/ 02/05/2017 FABIÁN POSADA MD [...] PART OF LOWER LIMB 02/19/2017 LY MORALES METEOROLOGICAL ENGINEER Ot 553.1 UMBILICAL HERNIA 02/19/2017 LY MORALES METEOROLOGICAL ENGINEER Ot 562.10 DIVERTICULOSIS COLON (W/O MENT OF [...] DEXTER Ot E11.319 TYPE 2 DIABETES W [facility] DIABET[facility] RTNOP W/ 02/19/2017 JIMENEZANNETTE Krueger DEXTER [...] MD Ot E11.319 TYPE 2 DIABETES W [facility] DIABETIC RTNOP W02/19/2017 FABIÁN POSADA MD Ot E66.01 MORBID (SEVERE) OBESITY DUE TO EXCESS CA 02/19/2017 FABIÁN PSOADA MD Ot 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, DEFINED IN [...] ADULT 02/21/2017 TELMA GRIER MD, Ot Z79.4 MEAT CUTTER (CURRENT) USE OF INSULIN 02/21/2017 TELMA GRIER [...] ADULT 02/21/2017 KIDO MD, TAKAAKI Ot Z79.4 MEAT CUTTER (CURRENT) USE OF INSULIN 02/21/2017 TELMA GRIER [...] 03/06/2017 FABIÁN POSADA MD, Ot Z79.899 OTHER MEAT CUTTER (CURRENT) DRUG THERAPY 03/25/2017 YANA HODGSON MD, [...] PART OF LOWER LIMB 04/13/2017 LY MORALES METEOROLOGICAL ENGINEER Ot 553.1 UMBILICAL HERNIA 04/13/2017 LY MORALES METEOROLOGICAL ENGINEER Ot 562.10 DIVERTICULOSIS COLON (W/O MENT OF [...] MASS INDEX (BMI) 40.0-44.9, ADULT 04/13/2017 ANNETTE JIMEENZ Ot Z79.4 MEAT CUTTER (CURRENT) USE OF INSULIN 04/13/2017 ANNETTE JIMENEZ Ot Z79.899 OTHER MEAT CUTTER (CURRENT) DRUG THERAPY 04/13/2017 TELMA GRIER MD, Ot C54.1 MALIGNANT NEOPLASM OF ENDOMETRIUM 04/13/2017 TELMA GRIER MD Ot Z01.818 ENCOUNTER FOR OTHER PREPROCEDURAL EXAMIN 04/13/2017 KAREN MORALES DO Ot R60.0 LOCALIZED EDEMA 04/13/2017 FABIÁN POSADA MD Ot R06.02 SHORTNESS OF BREATH 04/13/2017 AFBIÁN POSADA MD Ot C54.1 MALIGNANT NEOPLASM OF [...] 40.0-44.9, ADULT 04/13/2017 NII BORDEN Ot Z79.4 MEAT CUTTER (CURRENT) USE OF INSULIN 04/13/2017 NII BORDEN [...] ADULT 04/13/2017 FABIÁN POSADA MD Ot Z79.4 MEAT CUTTER (CURRENT) USE OF INSULIN 04/13/2017 ALBINO FREY, FABIÁN Haines Ot Z79.899 OTHER MEAT CUTTER (CURRENT) DRUG THERAPY 04/15/2017 COLTHARP MAYTE Garibay Ot 250.82 DIAB W OTH SPEC MANIFEST, TYPE II OR UNS 04/15/2017 COLYI BAEZ MAYTE Garibay Ot 459.81 VENOUS INSUFFICIENCY NOS 04/15/2017 COLTAYLORARP DO MAYTE Garibay Ot 707.19 ULCER OF OTHER PART OF LOWER LIMB 04/15/2017 LY MORALES METEOROLOGICAL ENGINEER Ot 553.1 UMBILICAL HERNIA 04/15/2017 LY MORALES METEOROLOGICAL ENGINEER Ot 562.10 DIVERTICULOSIS COLON (W/O MENT OF [...] 40.0-44.9, ADULT 04/15/2017 ANNETTE JIMENEZ Ot Z79.4 MEAT CUTTER (CURRENT) USE OF INSULIN 04/15/2017 ANNETTE JIMENEZ Ot Z79.899 OTHER MEAT CUTTER (CURRENT) DRUG THERAPY 04/15/2017 TELMA GRIER MD [...] 40.0-44.9, ADULT 04/15/2017 NII BORDEN Ot Z79.4 MEAT CUTTER (CURRENT) USE OF INSULIN 04/15/2017 NII BORDEN [...] 40.0-44.9, ADULT 04/17/2017 NII BORDEN Ot Z79.4 MEAT CUTTER (CURRENT) USE OF INSULIN 04/17/2017 NII BORDEN Ot Z79.899 OTHER MEAT CUTTER (CURRENT) DRUG THERAPY 04/20/2017 FABIÁN POSADA MD [...] 04/22/2017 TELMA GRIER MD Ot Z79.899 OTHER MEAT CUTTER (CURRENT) DRUG THERAPY 04/22/2017 TELMA GRIER MD [...] 04/28/2017 TELMA GRIER MD, Ot Z79.899 OTHER MEAT CUTTER (CURRENT) DRUG THERAPY 04/28/2017 TELMA GRIER MD, [...] MAMMOGRAM FOR MALIGNANT NE 05/11/2017 ANNETTE JIMENEZ METEOROLOGICAL ENGINEER Ot R92.8 OTH ABN AND INCONCLUSIVE FINDINGS ON DX 05/14/2017 ANNETTE JIMENEZ METEOROLOGICAL ENGINEER Ot C50.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 05/14/2017 ANNETTE JIMENEZ METEOROLOGICAL ENGINEER Ot 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 05/15/2017 ANNETTE JIMENEZ METEOROLOGICAL ENGINEER Ot 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 05/15/2017 ANNETTE JIMENEZ METEOROLOGICAL ENGINEER Ot N63 UNSPECIFIED LUMP IN BREAST 05/20/2017 ANNETTE JIMENEZ METEOROLOGICAL ENGINEER Ot N63 UNSPECIFIED LUMP IN BREAST 05/20/2017 NOBLE STILL BENZOL OPERATOR Ot K57.30 DVRTCLOS OF LG INT W/O PERFORATION OR AB 05/20/2017 NOBLE STILL BENZOL OPERATOR Ot K63.89 OTHER SPECIFIED DISEASES OF INTESTINE 05/20/2017 NOBLE STILL BENZOL OPERATOR Ot Z85.42 PERSONAL HISTORY OF MALIGNANT NEOPLASM O 05/20/2017 NOBLE STILL BENZOL OPERATOR Ot Z90.49 ACQUIRED ABSENCE OF OTHER SPECIFIED PART 05/20/2017 NOBLE STILL BENZOL OPERATOR Ot Z90.710 ACQUIRED ABSENCE OF BOTH CERVIX AND UTER 05/25/2017 ANNETTE JIMENEZ METEOROLOGICAL ENGINEER Ot C50.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 05/25/2017 ANNETTE JIMENEZ METEOROLOGICAL ENGINEER Ot K63.9 DISEASE OF INTESTINE, UNSPECIFIED 05/29/2017 SANDRA FREY, LEILA Ot R92.8 OTH ABN AND INCONCLUSIVE FINDINGS ON DX 06/05/2017 ANNETTE JIMENEZ METEOROLOGICAL ENGINEER Ot N63 UNSPECIFIED LUMP IN BREAST 06/10/2017 ANNETTE JIMENEZ METEOROLOGICAL ENGINEER Ot C50.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 06/10/2017 ANNETTE JIMENEZ METEOROLOGICAL ENGINEER Ot K63.9 DISEASE OF INTESTINE, UNSPECIFIED 06/13/2017 [...] 06/13/2017 NII BORDEN N Ot Z79.899 OTHER MEAT CUTTER (CURRENT) DRUG THERAPY 06/18/2017 SUHA NII N [...] OTHER HALF-WAY (CURRENT) DRUG THERAPY 06/26/2017 KAREN MORALES DO [...] PART OF LOWER LIMB 06/29/2017 LY MORALES METEOROLOGICAL ENGINEER Ot 553.1 UMBILICAL HERNIA 06/29/2017 LY MORALES METEOROLOGICAL ENGINEER Ot 562.10 DIVERTICULOSIS COLON (W/O MENT OF HEMORR 06/29/2017 YANA BYRNES DO Ot 625.8 FEM GENITAL SYMPTOMS NEC 06/29/2017 YANA BYRNES DO Ot 627.1 POSTMENOPAUSAL BLEEDING 06/29/2017 ALBINO FREY, FABIÁN Haines Ot 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 06/29/2017 ALBINO FREY, FABIÁN Haines Ot C54.1 MALIGNANT NEOPLASM OF ENDOMETRIUM 06/29/2017 ANNETTE JIMENEZ METEOROLOGICAL ENGINEER Ot C54.1 MALIGNANT NEOPLASM OF ENDOMETRIUM 06/29/2017 ANNETTE JIMENEZ METEOROLOGICAL ENGINEER Ot E11.319 TYPE 2 DIABETES W [facility] DIABETIC RTNOP W/ 06/29/2017 ANNETTE JIMENEZ METEOROLOGICAL ENGINEER Ot E66.01 MORBID (SEVERE) OBESITY DUE TO EXCESS CA 06/29/2017 ANNETTE JIMENEZ METEOROLOGICAL ENGINEER Ot 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, DEFINED IN [place] 06/29/2017 ANNETTE JIMENEZ METEOROLOGICAL ENGINEER Ot I10 ESSENTIAL (PRIMARY) HYPERTENSION 06/29/2017 ANNETTE JIMENEZ METEOROLOGICAL ENGINEER Ot Z68.41 BODY MASS INDEX (BMI) 40.0-44.9, ADULT 06/29/2017 ANNETTE JIMENEZP Ot Z79.4 MEAT CUTTER (CURRENT) USE OF INSULIN 06/29/2017 ANNETTE JIMENEZP [...] SCREEN MAMMOGRAM FOR MALIGNANT NE 06/29/2017 CHEKONOBLE BENZOL OPERATOR Ot K57.30 DVRTCLOS OF LG INT W/O PERFORATION OR AB 06/29/2017 CHEKOCRISTYIN L BENZOL OPERATOR Ot K63.89 OTHER SPECIFIED DISEASES OF INTESTINE 06/29/2017 CHEKOCRISTYIN L BENZOL OPERATOR Ot Z85.42 PERSONAL HISTORY OF MALIGNANT NEOPLASM O 06/29/2017 CHEKOCRISTYIN L BENZOL OPERATOR Ot Z90.49 ACQUIRED ABSENCE OF OTHER SPECIFIED PART 06/29/2017 CHEKOCRISTYIN L BENZOL OPERATOR Ot Z90.710 ACQUIRED ABSENCE OF BOTH CERVIX AND UTER 06/29/2017 SANDRA FREY, LEILA Ot R92.8 OTH ABN AND INCONCLUSIVE FINDINGS ON DX 06/29/2017 ANNETTE JIMENEZ METEOROLOGICAL ENGINEER Ot N63 UNSPECIFIED LUMP IN BREAST 06/29/2017 ANNETTE JIMENEZ METEOROLOGICAL ENGINEER Ot C50.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 06/29/2017 ANNETTE JIMENEZ METEOROLOGICAL ENGINEER Ot K63.9 DISEASE OF INTESTINE, UNSPECIFIED 06/29/2017 ANNETTE JIMENEZ METEOROLOGICAL ENGINEER Ot 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 06/29/2017 ANNETTE JIMENEZ METEOROLOGICAL ENGINEER Ot 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 NEOPLASM OF ENDOMETRIUM 06/29/2017 ANNETTE JIMENEZ METEOROLOGICAL ENGINEER Ot Z78.0 ASYMPTOMATIC MENOPAUSAL STATE 06/29/2017 NII [...] ADULT 06/29/2017 NII BORDEN Natasha Ot Z79.4 MEAT CUTTER (CURRENT) USE OF INSULIN 06/29/2017 SUHA NII Kaur Ot Z79.899 OTHER HALF-WAY (CURRENT) DRUG THERAPY 06/29/2017 KAREN MORALES DO Ot R13.14 DYSPHAGIA, PHARYNGOESOPHAGEAL PHASE 07/16/2017 ANNETTE JIMENEZP Ot 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 07/16/2017 ANNETTE JIMENEZ METEOROLOGICAL ENGINEER Ot C54.1 MALIGNANT NEOPLASM OF ENDOMETRIUM 07/16/2017 [...] Ot K63.9 DISEASE OF INTESTINE, UNSPECIFIED 10/06/2017 RIHCMOND PADILLA MD Ot R53.81 OTHER MALAISE 10/06/2017 [...] Ot I10 ESSENTIAL (PRIMARY) HYPERTENSION 11/19/2017 RICHMOND PDAILLA MD, Ot K63.9 DISEASE OF INTESTINE, UNSPECIFIED [...] ADULT 11/19/2017 RICHMOND PADILLA MD Ot Z79.4 MEAT CUTTER (CURRENT) USE OF INSULIN 11/19/2017 RICHMOND PADILLA [...] 11/20/2017 RICHMOND PADILLA MD Ot Z79.899 OTHER MEAT CUTTER (CURRENT) DRUG THERAPY 11/20/2017 RICHMOND PADILLA MD Ot Z90.710 ACQUIRED ABSENCE OF BOTH CERVIX AND UTER 11/24/2017 TELMA GRIER MD Ot Z01.818 ENCOUNTER FOR OTHER PREPROCEDURAL EXAMIN 11/24/2017 TELMA GRIER MD Ot Z12.11 ENCOUNTER FOR SCREENING FOR MALIGNANT NE 11/25/2017 TELMA GRIER MD Ot Z01.818 ENCOUNTER FOR OTHER PREPROCEDURAL EXAMIN 11/25/2017 TELMA GRIER MD, Ot Z12.11 ENCOUNTER FOR SCREENING FOR MALIGNANT NE 11/27/2017 TELAM GRIER MD, Ot 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 OF [...] [ER+] 11/30/2017 TELMA GRIER MD, Ot Z79.4 MEAT CUTTER (CURRENT) USE OF INSULIN 11/30/2017 TELMA GRIER MD, Ot Z79.899 OTHER MEAT CUTTER (CURRENT) DRUG THERAPY 11/30/2017 TELMA GRIER MD, [...] 12/09/2017 RICHMOND PADILLA MD Ot Z79.899 OTHER MEAT CUTTER (CURRENT) DRUG THERAPY 12/09/2017 RICHMOND PADILLA MD [...] ADULT 12/11/2017 RICHMOND PADILLA MD, Ot Z79.4 MEAT CUTTER (CURRENT) USE OF INSULIN 12/11/2017 RICHMOND PADILLA MD, Ot Z79.899 OTHER MEAT CUTTER (CURRENT) DRUG THERAPY 12/11/2017 RICHMOND PADILLA MD, [...] [ER+] 12/15/2017 TELMA GRIER MD, Ot Z79.4 MEAT CUTTER (CURRENT) USE OF INSULIN 12/15/2017 TELMA GRIER MD, Ot Z79.899 OTHER MEAT CUTTER (CURRENT) DRUG THERAPY 12/15/2017 TELMA GRIER MD, [...] ADULT 02/18/2018 RICHMOND PADILLA MD, Ot Z79.4 MEAT CUTTER (CURRENT) USE OF INSULIN 02/18/2018 RICHMOND PADILLA [...] 03/10/2018 RICHMOND PADILLA MD, Ot Z79.899 OTHER MEAT CUTTER (CURRENT) DRUG THERAPY 03/10/2018 RICHMOND PADILLA MD, [...] INITIAL 05/28/2018 LESIA MERAZ MD Ot Y92.[address] IN [place] NON-INSTITUT (PRIVATE 05/28/2018 LESIA MERAZ MD, Ot [...] MERAZ MD Ot Y92.[address] IN [place] NON-INSTITUT (PRIVATE 05/31/2018 LESIA MERAZ MD, Ot Z68.35 BODY MASS INDEX (BMI) 35.0-35.9, ADULT 05/31/2018 LESIA MERAZ MD, Ot Z79.4 MEAT CUTTER (CURRENT) USE OF INSULIN 05/31/2018 LESIA MERAZ [...] ABSENCE OF BOTH CERVIX AND UTER 06/16/2018 [facility] Ot 250.82 DIAB W OTH SPEC MANIFEST, TYPE II OR UNS 06/16/2018 [facility] MAYTE BAEZ A Ot 459.81 VENOUS INSUFFICIENCY NOS 06/16/2018 [facility] MAYTE BAEZ A Ot 707.19 ULCER OF OTHER PART OF LOWER LIMB 06/16/2018 LY MORALES METEOROLOGICAL ENGINEER Ot 553.1 UMBILICAL HERNIA 06/16/2018 LY MORALES METEOROLOGICAL ENGINEER Ot 562.10 DIVERTICULOSIS COLON (W/O MENT OF HEMORR 06/16/2018 YANA BYRNES DO Ot 625.8 FEM GENITAL SYMPTOMS NEC 06/16/2018 YANA BYRNES DO Ot 627.1 POSTMENOPAUSAL BLEEDING 06/16/2018 FABIÁN POSADA MD Ot 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 06/16/2018 FABIÁN POSADA MD Ot C54.1 MALIGNANT NEOPLASM OF ENDOMETRIUM 06/16/2018 JIMENEZANNETTE Krueger DEXTER Ot C54.1 MALIGNANT NEOPLASM OF ENDOMETRIUM 06/16/2018 JIMENEZANNETTE Krueger METEOROLOGICAL ENGINEER Ot E11.319 TYPE 2 DIABETES W UNSP DIABETIC RTNOP W/ 06/16/2018 ANNETTE JIMENEZ METEOROLOGICAL ENGINEER Ot E66.01 MORBID (SEVERE) OBESITY DUE TO EXCESS CA 06/16/2018 ANNETTE JIMENEZ METEOROLOGICAL ENGINEER Ot 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, DEFINED IN [place] 06/16/2018 JOHN JIMENEZNENA Krueger METEOROLOGICAL ENGINEER Ot I10 ESSENTIAL (PRIMARY) HYPERTENSION 06/16/2018 TONY ANNETTE Krueger METEOROLOGICAL ENGINEER Ot Z68.41 BODY MASS INDEX (BMI) 40.0-44.9, ADULT 06/16/2018 TONY ANNETTE Krueger METEOROLOGICAL ENGINEER Ot Z79.4 MEAT CUTTER (CURRENT) USE OF INSULIN 06/16/2018 TONY ANNETTE Krueger METEOROLOGICAL ENGINEER Ot Z79.899 OTHER MEAT CUTTER (CURRENT) DRUG THERAPY 06/16/2018 TELMA GRIER MD, [...] MAMMOGRAM FOR MALIGNANT NE 06/16/2018 CHEKONOBLE L BENZOL OPERATOR Ot K57.30 DVRTCLOS OF LG INT W/O PERFORATION OR AB 06/16/2018 CHEKOCRISTYIN L BENZOL OPERATOR Ot K63.89 OTHER SPECIFIED DISEASES OF INTESTINE 06/16/2018 CHEKOCRISTY RAOIN L BENZOL OPERATOR Ot Z85.42 PERSONAL HISTORY OF MALIGNANT NEOPLASM O 06/16/2018 CHEKOCRISTY RAOIN L BENZOL OPERATOR Ot Z90.49 ACQUIRED ABSENCE OF OTHER SPECIFIED PART 06/16/2018 CHEKOCRISTYIN L BENZOL OPERATOR Ot Z90.710 ACQUIRED ABSENCE OF BOTH CERVIX AND UTER 06/16/2018 SANDRA FREY, LEILA Ot R92.8 OTH ABN AND INCONCLUSIVE FINDINGS ON DX 06/16/2018 ANNETTE JIMENEZ METEOROLOGICAL ENGINEER Ot N63 UNSPECIFIED LUMP IN BREAST 06/16/2018 ANNETTE JIMENEZ METEOROLOGICAL ENGINEER Ot C50.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 06/16/2018 ANNETTE JIMENEZ METEOROLOGICAL ENGINEER Ot K63.9 DISEASE OF INTESTINE, UNSPECIFIED 06/16/2018 ANNETTE JIMENEZ METEOROLOGICAL ENGINEER Ot 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 06/16/2018 ANNETTE JIMENEZ METEOROLOGICAL ENGINEER Ot C54.1 MALIGNANT NEOPLASM OF ENDOMETRIUM 06/16/2018 ANNETTE JIMENEZ METEOROLOGICAL ENGINEER Ot Z78.0 ASYMPTOMATIC MENOPAUSAL STATE 06/16/2018 KAREN [...] VASCULITIS LIMITED TO THE SKIN, UNSPECIF 06/16/2018 AYNA HODGSON MD, Ot L97.211 NON-PRS CHRONIC ULCER [...] 08/09/2018 RICHMOND PADILLA MD, Ot Z79.899 OTHER MEAT CUTTER (CURRENT) DRUG THERAPY 08/09/2018 RICHMOND PADILLA MD, Ot Z90.710 ACQUIRED ABSENCE OF BOTH CERVIX AND UTER 09/10/2018 FRANCIA BAEZ LIBORIO Ot B95.2 ENTEROCOCCUS THE CAUSE OF DISEASES CL 09/10/2018 LIBORIO FELDMAN DO Ot E11.40 TYPE 2 DIABETES MELLITUS WITH DIABETIC N 09/10/2018 FRANCIA BAEZ LIBORIO Ot E66.9 OBESITY, UNSPECIFIED 09/10/2018 FRANCIA BAEZ LIBORIO Ot E87.1 HYPO-OSMOLALITY AND HYPONATREMIA 09/10/2018 FRANCIA BAEZ LIBORIO Ot F02.80 DEMENTIA IN OTH DISEASES CLASSD ELSWHR W 09/10/2018 FRANCIA BAEZ LIBORIO Ot G30.9 ALZHEIMER'S DISEASE, UNSPECIFIED 09/10/2018 FRANCIA BAEZ LIBORIO Ot G47.9 SLEEP DISORDER, UNSPECIFIED 09/10/2018 FRANCIA BAEZ LIBORIO Ot H35.30 UNSPECIFIED MACULAR DEGENERATION 09/10/2018 FRANCIA BAEZ LIBORIO Ot I10 ESSENTIAL (PRIMARY) HYPERTENSION 09/10/2018 FRANCIA BAEZ LIBORIO Ot M19.91 PRIMARY OSTEOARTHRITIS, UNSPECIFIED SITE 09/10/2018 FRANCIA BAEZ LIBORIO Ot N30.00 ACUTE CYSTITIS WITHOUT HEMATURIA 09/10/2018 FRANCIA BAEZ LIBORIO Ot R53.81 OTHER MALAISE 09/10/2018 LIBORIO FELDMAN DO Ot R63.0 ANOREXIA 09/10/2018 LIBORIO FELDMAN DO Ot Z66 DO NOT RESUSCITATE 09/10/2018 LIBORIO FELDMAN DO Ot Z68.37 BODY MASS INDEX (BMI) 37.0-37.9, ADULT 09/10/2018 LIBORIO FELDMAN DO Ot Z79.4 HALF-WAY (CURRENT) USE OF INSULIN 09/10/2018 LIBORIO FELDMAN DO Ot Z85.42 PERSONAL HISTORY OF MALIGNANT NEOPLASM O 09/10/2018 LIBORIO FELDMAN DO Ot Z85.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 OF FE 09/10/2018 LIBORIO FELDMAN DO Ot Z88.1 ALLERGY STATUS TO OTHER ANTIBIOTIC AGENT 09/10/2018 LIBORIO FELDMAN DO Ot Z88.8 ALLERGY STATUS TO OTH DRUG/MEDS/BIOL SUB 09/10/2018 LIBORIO FELDMAN DO Ot Z90.710 ACQUIRED ABSENCE OF BOTH CERVIX AND UTER 09/10/2018 LIBORIO FELDMAN DO Ot Z91.81 HISTORY OF FALLING 09/10/2018 LIBORIO FELDMAN DO Ot Z92.21 PERSONAL HISTORY OF ANTINEOPLASTIC CHEMO 09/10/2018 LIBORIO FELDMAN DO Ot Z92.3 PERSONAL HISTORY OF IRRADIATION 09/14/2018 RICHMOND PADILLA MD Ot 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 09/14/2018 RICHMOND PADILLA MD, Ot C54.1 MALIGNANT NEOPLASM OF ENDOMETRIUM 09/14/2018 RICHMOND PADILLA MD Ot E11.319 TYPE 2 DIABETES W UNSP DIABETIC RTNOP W/ 09/14/2018 RICHMOND PADILLA MD, Ot E11.40 TYPE 2 DIABETES MELLITUS WITH DIABETIC N 09/14/2018 RICHMOND PADILLA MD, Ot E66.9 OBESITY, UNSPECIFIED 09/14/2018 RICHMOND PADILLA MD Ot I10 ESSENTIAL (PRIMARY) HYPERTENSION 09/14/2018 RICHMOND PADILLA MD, Ot K63.9 DISEASE OF INTESTINE, UNSPECIFIED 09/14/2018 RICHMOND PADILLA MD, Ot R53.81 OTHER MALAISE 09/14/2018 RICHMOND PADILLA MD, Ot 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+] 09/14/2018 RICHMOND PADILLA MD, Ot Z45.2 ENCOUNTER FOR ADJUSTMENT AND MANAGEMENT 09/14/2018 RICHMOND PADILLA MD, Ot Z68.33 BODY MASS INDEX (BMI) 33.0-33.9, ADULT 09/14/2018 RICHMOND PADILLA MD Ot Z79.4 MEAT CUTTER (CURRENT) USE OF INSULIN 09/14/2018 RICHMOND PADILLA MD Ot Z79.899 OTHER MEAT CUTTER (CURRENT) DRUG THERAPY 09/14/2018 RICHMOND PADILLA MD Ot Z90.710 ACQUIRED ABSENCE OF BOTH CERVIX AND UTER 09/15/2018 RICHMOND PADILLA MD Ot 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 09/15/2018 RICHMOND PADILLA MD Ot C54.1 MALIGNANT NEOPLASM OF ENDOMETRIUM 09/15/2018 RICHMOND PADILLA MD Ot E11.319 TYPE 2 DIABETES W UNSP DIABETIC RTNOP W/ 09/15/2018 RICHMOND PADILLA MD Ot E11.40 TYPE 2 DIABETES MELLITUS WITH DIABETIC N 09/15/2018 RICHMOND PADILLA MD Ot E66.9 OBESITY, UNSPECIFIED 09/15/2018 RICHMOND PADILLA MD Ot I10 ESSENTIAL (PRIMARY) HYPERTENSION 09/15/2018 RICHMOND PADILLA MD Ot K63.9 DISEASE OF INTESTINE, UNSPECIFIED 09/15/2018 RICHMOND PADILLA MD Ot R53.81 OTHER MALAISE 09/15/2018 RICHMOND PADILLA MD Ot 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+] 09/15/2018 RICHMOND PADILLA MD Ot Z45.2 ENCOUNTER FOR ADJUSTMENT AND MANAGEMENT 09/15/2018 RICHMOND PADILLA MD Ot Z68.33 BODY MASS INDEX (BMI) 33.0-33.9, ADULT 09/15/2018 RICHMOND PADILLA MD Ot Z79.4 MEAT CUTTER (CURRENT) USE OF INSULIN 09/15/2018 RICHMOND PADILLA MD Ot Z79.899 OTHER MEAT CUTTER (CURRENT) DRUG THERAPY 09/15/2018 RICHMOND PADILLA MD Ot Z90.710 ACQUIRED ABSENCE OF BOTH CERVIX AND UTER 09/20/2018 RICHMOND PADILLA MD Ot 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 09/20/2018 RICHMOND PADILLA MD Ot C54.1 MALIGNANT NEOPLASM OF ENDOMETRIUM 09/20/2018 RICHMOND PADILLA MD Ot E11.319 TYPE 2 DIABETES W UNSP DIABETIC RTNOP W/ 09/20/2018 RICHMOND PADILLA MD Ot E11.40 TYPE 2 DIABETES MELLITUS WITH DIABETIC N 09/20/2018 RICHMOND PADILLA MD Ot E66.9 OBESITY, UNSPECIFIED 09/20/2018 RICHMOND PADILLA MD Ot I10 ESSENTIAL (PRIMARY) HYPERTENSION 09/20/2018 RICHMOND PADILLA MD, Ot K63.9 DISEASE OF INTESTINE, UNSPECIFIED 09/20/2018 RICHMOND PADILLA MD Ot R53.81 OTHER MALAISE 09/20/2018 RICHMOND PADILLA MD Ot 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+] 09/20/2018 RICHMOND PADILLA MD Ot Z45.2 ENCOUNTER FOR ADJUSTMENT AND MANAGEMENT 09/20/2018 RICHMOND PADILLA MD, Ot Z68.33 BODY MASS INDEX (BMI) 33.0-33.9, ADULT 09/20/2018 RICHMOND PADILLA MD, Ot Z79.4 HALF-WAY (CURRENT) USE OF INSULIN 09/20/2018 RICHMOND PADILLA MD, Ot Z79.899 OTHER MEAT CUTTER (CURRENT) DRUG THERAPY 09/20/2018 RICHMOND PADILLA MD, Ot Z90.710 ACQUIRED ABSENCE OF BOTH CERVIX AND UTER Procedures There is no data. Results Test Result Range Bacterial urine culture - 04/17/16 15:25 Bacterial urine culture [id number] NRG COLONY COUNT >100,000/ML NRG [facility];REPORTABLE SENSITIVITY [...] 12:08 FUNGUS REPORT NO FUNGUS GROWTH OBSERVED NRG Capillary blood glucose measurement by glucometer [...] measurement by glucometer (mass/volume) 77 mg/dL 70-110 [id number] - 04/29/17 10:39 Serum or plasma urea [...] culture - 05/07/17 12:00 Bacterial urine culture [id number] NR COLONY COUNT >100,000/ML NR [facility];REPORTABLE SENSITIVITY REPORTED 05/09/17 11:00 [facility] Bacterial susceptibility panel - 05/07/17 12:00 Gentamicin susceptibility test by minimum inhibitory concentration < = NR Trimethoprim/sulfamethoxazole susceptibility test by minimum inhibitoryconcentration >= NR Ampicillin susceptibility test by minimum inhibitory concentration > = NR Tobramycin susceptibility test by minimum inhibitory concentration < = NR Cefazolin susceptibility test by minimum inhibitory concentration S [facility] Ceftriaxone susceptibility test by minimum inhibitory concentration S [facility] Ampicillin/sulbactam susceptibility test by minimum inhibitory concentration <= NR Piperacillin/tazobactam susceptibility test by minimum inhibitory concentration <= NR Ciprofloxacin susceptibility test by minimum inhibitory concentration <= NR Meropenem susceptibility test by minimum inhibitory concentration < = NR Nitrofurantoin susceptibility test by minimum inhibitory concentration R [facility] Aztreonam susceptibility test by minimum inhibitory concentration S [facility] Bacterial urine culture - 05/26/17 16:35 URINE CULTURE RESULTS [facility]) NR Complete urinalysis with reflex to culture - 11/19/17 14:55 Urine color determination YELLOW NRG Urine clarity determination VERY CLOUDY NR Urine pH measurement by test strip 6.5 [...] culture - 11/19/17 14:55 Bacterial urine culture [id number] NRG COLONY COUNT >100,000/ML NRG [facility];REPORTABLE SENSITIVITY REPORTED AT 1745, 3-18 NRG Bacterial susceptibility panel - 11/19/17 14:55 [...] Complete urinalysis with reflex to culture YES NR Comprehensive metabolic panel - 05/28/18 08:00 Serum [...] culture - 05/28/18 08:00 Bacterial urine culture [id number] NR COLONY COUNT >100,000/ML NR [facility];REPORTABLE [facility] SENT SENSITIVITY REPORT 05/30 09:05 [facility] RML Sensitivity Panel - 05/28/18 08:00 Gentamicin susceptibility test by minimum inhibitory concentration < = NRG Trimethoprim/sulfamethoxazole susceptibility test by minimum inhibitoryconcentration R NR Levofloxacin susceptibility test by minimum inhibitory concentration [...] and clavulanate potassium susc LEWIS R NRG Complete urinalysis with reflex to culture - 09/06/18 14:54 Urine color determination YELLOW NRG Urine clarity determination CLEAR NRG Urine pH measurement by test strip 8 5-9 Specific gravity of urine by test strip 1.015 1.016- 1.022 Urine protein assay by test strip, semi-quantitative 3+ NEGATIVE Urine glucose detection by automated test strip NEGATIVE NEGATIVE Erythrocytes detection in urine sediment by light microscopy 1+ NEGATIVE Urine ketones detection by automated test strip NEGATIVE NEGATIVE Urine nitrite detection by test strip NEGATIVE NEGATIVE Urine total bilirubin detection by test strip NEGATIVE NEGATIVE Urine urobilinogen measurement by automated test strip (mass/volume) NORMAL NORMAL Urine leukocyte esterase detection by dipstick 2+ NEGATIVE Automated urine sediment erythrocyte count by microscopy (number/high power field) [HPF] NRG Automated urine sediment leukocyte count by microscopy (number/high power field ) [HPF] NRG Bacteria detection in urine sediment by light microscopy FEW NRG Squamous epithelial cells detection in urine sediment by light microscopy 0-2 NRG Crystals detection in urine sediment by light microscopy NONE NRG Casts detection in urine sediment by light microscopy NONE NRG Mucus detection in urine sediment by light microscopy NEGATIVE NRG Complete urinalysis with reflex to culture YES NRG Renal epithelial cells detection in urine sediment by light microscopy 0-2 NRG Bacterial urine culture - 09/06/18 14:54 Bacterial urine culture [id number] NRG COLONY COUNT >100,000/ML NRG [facility];REPORTABLE ID REPORTED 09/07/18 14:05 NRG FREE TEXT ENTRY 2 SUSCEPTIBILITY REPORTED 09/09/18 11:05 NR RML Sensitivity Panel - 09/06/18 14:54 Vancomycin susceptibility test by minimum inhibitory concentration 1 NRG Levofloxacin susceptibility test by minimum inhibitory concentration 2 NRG Ampicillin susceptibility test by minimum inhibitory concentration 2 NRG Nitrofurantoin susceptibility test by minimum inhibitory concentration <= NRG Linezolid susceptibility test by minimum inhibitory concentration 2 NRG Daptomycin susc LEWIS 4 NRG Complete blood count (CBC) with automated white blood cell (WBC) differential - 09/06/18 14:55 Blood leukocytes automated count (number/volume) 5.0 10*3/uL 4.3-11.0 Blood erythrocytes automated count (number/volume) 3.10 10*6/uL 4.35-5.85 Venous blood hemoglobin measurement (mass/volume) 9.8 g/dL 11.5-16.0 Blood hematocrit (volume fraction) 28 % 35-52 Automated erythrocyte mean corpuscular volume 90 [foz_us] 80-99 Automated erythrocyte mean corpuscular hemoglobin (mass per erythrocyte) 32 pg 25-34 Automated erythrocyte mean corpuscular hemoglobin concentration measurement ( mass/volume) 35 g/dL 32-36 Automated erythrocyte distribution width ratio 13.6 % 10.0-14.5 Automated blood platelet count (count/volume) 290 10*3/uL 130-400 Automated blood platelet mean volume measurement 8.4 [foz_us] 7.4-10.4 Automated blood neutrophils/100 leukocytes 74 % 42-75 Automated blood lymphocytes/100 leukocytes 9 % 12-44 Blood monocytes/100 leukocytes 10 % 0-12 Automated blood eosinophils/100 leukocytes 7 % 0-10 Automated blood basophils/100 leukocytes 0 % 0-10 Blood neutrophils automated count (number/volume) 3.7 10*3 1.8-7.8 Blood lymphocytes automated count (number/volume) 0.5 10*3 1.0-4.0 Blood monocytes automated count (number/volume) 0.5 10*3 0.0-1.0 Automated eosinophil count 0.3 10*3/uL 0.0-0.3 Automated blood basophil count (count/volume) 0.0 10*3/uL 0.0-0.1 Comprehensive metabolic panel - 09/06/18 14:55 Serum or plasma sodium measurement (moles/volume) 122 mmol/L 135-145 Serum or plasma potassium measurement (moles/volume) 3.8 mmol/L 3.6-5.0 Serum or plasma chloride measurement (moles/volume) 82 mmol/L 98-107 Carbon dioxide 30 mmol/L 21-32 Serum or plasma anion gap determination (moles/volume) 10 mmol/L 5-14 Serum or plasma urea nitrogen measurement (mass/volume) 18 mg/dL 7-18 Serum or plasma creatinine measurement (mass/volume) 0.89 mg/dL 0.60-1.30 Serum or plasma urea nitrogen/creatinine mass ratio 20 NRG Serum or plasma creatinine measurement with calculation of estimated glomerular filtration rate > NRG Serum or plasma glucose measurement (mass/volume) 93 mg/dL 70-105 Serum or plasma calcium measurement (mass/volume) 8.7 mg/dL 8.5-10.1 Serum or plasma total bilirubin measurement (mass/volume) 0.3 mg/dL 0.1-1.0 Serum or plasma alkaline phosphatase measurement (enzymatic activity/volume) 79 U/L 40-136 Serum or plasma aspartate aminotransferase measurement (enzymatic activity/ volume) 19 U/L 5-34 Serum or plasma alanine aminotransferase measurement (enzymatic activity/volume ) 12 U/L 0-55 Serum or plasma protein measurement (mass/volume) 6.1 g/dL 6.4-8.2 Serum or plasma albumin measurement (mass/volume) 3.4 g/dL 3.2-4.5 CALCIUM CORRECTED 9.2 mg/dL 8.5-10.1 Serum or plasma troponin i.cardiac measurement (mass/volume) - 09/06/18 14:55 Serum or plasma troponin i.cardiac measurement (mass/volume) < ng/ mL <0.30 Serum or plasma thyrotropin measurement by detection limit <=0.05 miu/l (units/ volume) - 09/06/18 14:55 Serum or plasma thyrotropin measurement by detection limit <=0.05 miu/l (units/ volume) 2.30 u[iU]/mL 0.35-4.94 Serum or plasma C reactive protein measurement (mass/volume) - 09/06/18 14:55 Serum or plasma C reactive protein measurement (mass/volume) 0.39 mg /dL 0.00-0.50 Blood lactic acid measurement (moles/volume) - 09/06/18 15:13 Blood lactic acid measurement (moles/volume) 0.63 mmol/L 0.50-2.00 Bacterial blood culture - 09/06/18 15:13 Bacterial blood culture NG NRG Bacterial blood culture - 09/06/18 15:35 Bacterial blood culture NG NRG Capillary blood glucose measurement by glucometer (mass/volume) - 09/06/18 21: 42 Capillary blood glucose measurement by glucometer (mass/volume) 151 mg/dL 70-110 Complete blood count (CBC) with automated white blood cell (WBC) differential - 09/07/18 06:00 Blood leukocytes automated count (number/volume) 4.4 10*3/uL 4.3-11.0 Blood erythrocytes automated count (number/volume) 2.97 10*6/uL 4.35-5.85 Venous blood hemoglobin measurement (mass/volume) 9.2 g/dL 11.5-16.0 Blood hematocrit (volume fraction) 27 % 35-52 Automated erythrocyte mean corpuscular volume 90 [foz_us] 80-99 Automated erythrocyte mean corpuscular hemoglobin (mass per erythrocyte) 31 pg 25-34 Automated erythrocyte mean corpuscular hemoglobin concentration measurement ( mass/volume) 35 g/dL 32-36 Automated erythrocyte distribution width ratio 13.7 % 10.0-14.5 Automated blood platelet count (count/volume) 294 10*3/uL 130-400 Automated blood platelet mean volume measurement 8.1 [foz_us] 7.4-10.4 Automated blood neutrophils/100 leukocytes 63 % 42-75 Automated blood lymphocytes/100 leukocytes 15 % 12-44 Blood monocytes/100 leukocytes 14 % 0-12 Automated blood eosinophils/100 leukocytes 8 % 0-10 Automated blood basophils/100 leukocytes 1 % 0-10 Blood neutrophils automated count (number/volume) 2.8 10*3 1.8-7.8 Blood lymphocytes automated count (number/volume) 0.7 10*3 1.0-4.0 Blood monocytes automated count (number/volume) 0.6 10*3 0.0-1.0 Automated eosinophil count 0.3 10*3/uL 0.0-0.3 Automated blood basophil count (count/volume) 0.0 10*3/uL 0.0-0.1 Comprehensive metabolic panel - 09/07/18 06:00 Serum or plasma sodium measurement (moles/volume) 126 mmol/L 135-145 Serum or plasma potassium measurement (moles/volume) 3.3 mmol/L 3.6-5.0 Serum or plasma chloride measurement (moles/volume) 91 mmol/L 98-107 Carbon dioxide 24 mmol/L 21-32 Serum or plasma anion gap determination (moles/volume) 11 mmol/L 5-14 Serum or plasma urea nitrogen measurement (mass/volume) 16 mg/dL 7-18 Serum or plasma creatinine measurement (mass/volume) 0.79 mg/dL 0.60-1.30 Serum or plasma urea nitrogen/creatinine mass ratio 20 NRG Serum or plasma creatinine measurement with calculation of estimated glomerular filtration rate > NRG Serum or plasma glucose measurement (mass/volume) 90 mg/dL 70-105 Serum or plasma calcium measurement (mass/volume) 8.5 mg/dL 8.5-10.1 Serum or plasma total bilirubin measurement (mass/volume) 0.4 mg/dL 0.1-1.0 Serum or plasma alkaline phosphatase measurement (enzymatic activity/volume) 74 U/L 40-136 Serum or plasma aspartate aminotransferase measurement (enzymatic activity/ volume) 17 U/L 5-34 Serum or plasma alanine aminotransferase measurement (enzymatic activity/volume ) 8 U/L 0-55 Serum or plasma protein measurement (mass/volume) 5.5 g/dL 6.4-8.2 Serum or plasma albumin measurement (mass/volume) 3.1 g/dL 3.2-4.5 CALCIUM CORRECTED 9.2 mg/dL 8.5-10.1 Capillary blood glucose measurement by glucometer (mass/volume) - 09/07/18 07: 01 Capillary blood glucose measurement by glucometer (mass/volume) 106 mg/dL 70-110 Capillary blood glucose measurement by glucometer (mass/volume) - 09/07/18 11: 32 Capillary blood glucose measurement by glucometer (mass/volume) 130 mg/dL 70-110 Capillary blood glucose measurement by glucometer (mass/volume) - 09/07/18 15: 13 Capillary blood glucose measurement by glucometer (mass/volume) 261 mg/dL 70-110 Capillary blood glucose measurement by glucometer (mass/volume) - 09/07/18 16: 17 Capillary blood glucose measurement by glucometer (mass/volume) 237 mg/dL 70-110 Capillary blood glucose measurement by glucometer (mass/volume) - 09/07/18 20: 17 Capillary blood glucose measurement by glucometer (mass/volume) 172 mg/dL 70-110 Complete blood count (CBC) with automated white blood cell (WBC) differential - 09/08/18 05:23 Blood leukocytes automated count (number/volume) 4.8 10*3/uL 4.3-11.0 Blood erythrocytes automated count (number/volume) 2.92 10*6/uL 4.35-5.85 Venous blood hemoglobin measurement (mass/volume) 9.1 g/dL 11.5-16.0 Blood hematocrit (volume fraction) 27 % 35-52 Automated erythrocyte mean corpuscular volume 91 [foz_us] 80-99 Automated erythrocyte mean corpuscular hemoglobin (mass per erythrocyte) 31 pg 25-34 Automated erythrocyte mean corpuscular hemoglobin concentration measurement ( mass/volume) 34 g/dL 32-36 Automated erythrocyte distribution width ratio 14.0 % 10.0-14.5 Automated blood platelet count (count/volume) 270 10*3/uL 130-400 Automated blood platelet mean volume measurement 7.9 [foz_us] 7.4-10.4 Automated blood neutrophils/100 leukocytes 72 % 42-75 Automated blood lymphocytes/100 leukocytes 11 % 12-44 Blood monocytes/100 leukocytes 12 % 0-12 Automated blood eosinophils/100 leukocytes 5 % 0-10 Automated blood basophils/100 leukocytes 0 % 0-10 Blood neutrophils automated count (number/volume) 3.5 10*3 1.8-7.8 Blood lymphocytes automated count (number/volume) 0.5 10*3 1.0-4.0 Blood monocytes automated count (number/volume) 0.6 10*3 0.0-1.0 Automated eosinophil count 0.2 10*3/uL 0.0-0.3 Automated blood basophil count (count/volume) 0.0 10*3/uL 0.0-0.1 Comprehensive metabolic panel - 09/08/18 05:23 Serum or plasma sodium measurement (moles/volume) 134 mmol/L 135-145 Serum or plasma potassium measurement (moles/volume) 2.9 mmol/L 3.6-5.0 Serum or plasma chloride measurement (moles/volume) 99 mmol/L 98-107 Carbon dioxide 25 mmol/L 21-32 Serum or plasma anion gap determination (moles/volume) 10 mmol/L 5-14 Serum or plasma urea nitrogen measurement (mass/volume) 10 mg/dL 7-18 Serum or plasma creatinine measurement (mass/volume) 0.66 mg/dL 0.60-1.30 Serum or plasma urea nitrogen/creatinine mass ratio 15 NRG Serum or plasma creatinine measurement with calculation of estimated glomerular filtration rate > NRG Serum or plasma glucose measurement (mass/volume) 54 mg/dL 70-105 Serum or plasma calcium measurement (mass/volume) 8.5 mg/dL 8.5-10.1 Serum or plasma total bilirubin measurement (mass/volume) 0.2 mg/dL 0.1-1.0 Serum or plasma alkaline phosphatase measurement (enzymatic activity/volume) 63 U/L 40-136 Serum or plasma aspartate aminotransferase measurement (enzymatic activity/ volume) 16 U/L 5-34 Serum or plasma alanine aminotransferase measurement (enzymatic activity/volume ) 10 U/L 0-55 Serum or plasma protein measurement (mass/volume) 5.7 g/dL 6.4-8.2 Serum or plasma albumin measurement (mass/volume) 3.2 g/dL 3.2-4.5 CALCIUM CORRECTED 9.1 mg/dL 8.5-10.1 Capillary blood glucose measurement by glucometer (mass/volume) - 09/08/18 06: 34 Capillary blood glucose measurement by glucometer (mass/volume) 87 mg/dL 70-110 Capillary blood glucose measurement by glucometer (mass/volume) - 09/08/18 11: 07 Capillary blood glucose measurement by glucometer (mass/volume) 84 mg/dL 70-110 Capillary blood glucose measurement by glucometer (mass/volume) - 09/08/18 15: 04 Capillary blood glucose measurement by glucometer (mass/volume) 99 mg/dL 70-110 Capillary blood glucose measurement by glucometer (mass/volume) - 09/08/18 20: 01 Capillary blood glucose measurement by glucometer (mass/volume) 191 mg/dL 70-110 Capillary blood glucose measurement by glucometer (mass/volume) - 09/09/18 05: 25 Capillary blood glucose measurement by glucometer (mass/volume) 78 mg/dL 70-110 Complete blood count (CBC) with automated white blood cell (WBC) differential - 09/09/18 05:45 Blood leukocytes automated count (number/volume) 4.0 10*3/uL 4.3-11.0 Blood erythrocytes automated count (number/volume) 2.90 10*6/uL 4.35-5.85 Venous blood hemoglobin measurement (mass/volume) 9.0 g/dL 11.5-16.0 Blood hematocrit (volume fraction) 27 % 35-52 Automated erythrocyte mean corpuscular volume 93 [foz_us] 80-99 Automated erythrocyte mean corpuscular hemoglobin (mass per erythrocyte) 31 pg 25-34 Automated erythrocyte mean corpuscular hemoglobin concentration measurement ( mass/volume) 34 g/dL 32-36 Automated erythrocyte distribution width ratio 14.3 % 10.0-14.5 Automated blood platelet count (count/volume) 255 10*3/uL 130-400 Automated blood platelet mean volume measurement 7.9 [foz_us] 7.4-10.4 Automated blood neutrophils/100 leukocytes 58 % 42-75 Automated blood lymphocytes/100 leukocytes 16 % 12-44 Blood monocytes/100 leukocytes 16 % 0-12 Automated blood eosinophils/100 leukocytes 9 % 0-10 Automated blood basophils/100 leukocytes 1 % 0-10 Blood neutrophils automated count (number/volume) 2.3 10*3 1.8-7.8 Blood lymphocytes automated count (number/volume) 0.6 10*3 1.0-4.0 Blood monocytes automated count (number/volume) 0.6 10*3 0.0-1.0 Automated eosinophil count 0.4 10*3/uL 0.0-0.3 Automated blood basophil count (count/volume) 0.0 10*3/uL 0.0-0.1 Comprehensive metabolic panel - 09/09/18 05:45 Serum or plasma sodium measurement (moles/volume) 135 mmol/L 135-145 Serum or plasma potassium measurement (moles/volume) 3.5 mmol/L 3.6-5.0 Serum or plasma chloride measurement (moles/volume) 100 mmol/L 98-107 Carbon dioxide 27 mmol/L 21-32 Serum or plasma anion gap determination (moles/volume) 8 mmol/L 5-14 Serum or plasma urea nitrogen measurement (mass/volume) 10 mg/dL 7-18 Serum or plasma creatinine measurement (mass/volume) 0.71 mg/dL 0.60-1.30 Serum or plasma urea nitrogen/creatinine mass ratio 14 NRG Serum or plasma creatinine measurement with calculation of estimated glomerular filtration rate > NRG Serum or plasma glucose measurement (mass/volume) 57 mg/dL 70-105 Serum or plasma calcium measurement (mass/volume) 8.9 mg/dL 8.5-10.1 Serum or plasma total bilirubin measurement (mass/volume) 0.3 mg/dL 0.1-1.0 Serum or plasma alkaline phosphatase measurement (enzymatic activity/volume) 61 U/L 40-136 Serum or plasma aspartate aminotransferase measurement (enzymatic activity/ volume) 16 U/L 5-34 Serum or plasma alanine aminotransferase measurement (enzymatic activity/volume ) 8 U/L 0-55 Serum or plasma protein measurement (mass/volume) 5.6 g/dL 6.4-8.2 Serum or plasma albumin measurement (mass/volume) 3.0 g/dL 3.2-4.5 CALCIUM CORRECTED 9.7 mg/dL 8.5-10.1 Capillary blood glucose measurement by glucometer (mass/volume) - 09/09/18 06: 41 Capillary blood glucose measurement by glucometer (mass/volume) 81 mg/dL 70-110 Capillary blood glucose measurement by glucometer (mass/volume) - 09/09/18 10: 19 Capillary blood glucose measurement by glucometer (mass/volume) 69 mg/dL 70-110 Capillary blood glucose measurement by glucometer (mass/volume) - 09/09/18 14: 38 Capillary blood glucose measurement by glucometer (mass/volume) 113 mg/dL 70-110 Capillary blood glucose measurement by glucometer (mass/volume) - 09/09/18 19: 45 Capillary blood glucose measurement by glucometer (mass/volume) 189 mg/dL 70-110 Capillary blood glucose measurement by glucometer (mass/volume) - 09/10/18 05: 26 Capillary blood glucose measurement by glucometer (mass/volume) 53 mg/dL 70-110 Capillary blood glucose measurement by glucometer (mass/volume) - 09/10/18 06: 24 Capillary blood glucose measurement by glucometer (mass/volume) 66 mg/dL 70-110 Capillary blood glucose measurement by glucometer (mass/volume) - 09/10/18 09: 58 Capillary blood glucose measurement by glucometer (mass/volume) 87 mg/dL 70-110 Capillary blood glucose measurement by glucometer (mass/volume) - 09/10/18 15: 08 Capillary blood glucose measurement by glucometer (mass/volume) 92 mg/dL 70-110 Encounters ACCT No. Visit Date/Time Discharge Status Pt. Type Provider Facility Loc./Unit Complaint [id number] 09/17/2018 01:59:00 09/17/2018 23:59:59 CLS Outpatient RICHMOND PADILLA MD [facility] ONC [id number] 08/18/2018 15:20:00 09/14/2018 00:01:00 DIS Outpatient RICHMOND PADILLA MD [facility] ONC [id number] 09/06/2018 16:36:00 09/10/2018 15:15:00 DIS Inpatient LIBORIO FELDMAN DO [facility] 4TH HYPONATREMIA,UTI [id number] 06/22/2018 11:17:00 06/22/2018 23:59:59 CLS Outpatient RICHMOND PADILLA MD [facility] RAD MEMORY LOSS [id number] 05/04/2018 13:15:00 06/16/2018 13:45:00 DIS Outpatient RICHMOND PADILLA MD [facility] ONC [id number] 05/28/2018 07:52:00 05/28/2018 11:15:00 DIS Emergency LESIA MERAZ MD [facility] ER FALL;R SIDE PAIN;NECK PAIN [id number] 05/27/2018 16:02:00 05/27/2018 23:59:59 CLS Preadmit RICHMOND PADILLA MD [facility] RAD R41.3 MEMORY LOSS [id number] 03/18/2018 14:10:00 03/18/2018 23:59:59 CLS Preadmit RICHMOND PADILLA MD [facility] RAD MEMORY LOSS [id number] 02/18/2018 16:39:00 03/10/2018 00:01:00 DIS Outpatient RICHMOND PADILLA MD [facility] ONC [id number] 01/18/2018 13:33:00 01/18/2018 23:59:59 CLS Outpatient YANA HODGSON MD [facility] WOUNDCARE [id number] 01/04/2018 14:03:00 01/04/2018 23:59:59 CLS Outpatient YANA HODGSON MD [facility] WOUNDCARE [id number] 12/28/2017 12:18:00 12/28/2017 23:59:59 CLS Outpatient YANA HODGSON MD [facility] WOUNDCARE [id number] 11/27/2017 11:35:00 11/27/2017 15:35:00 DIS Outpatient TELMA GRIER MD [facility] ENDO HX OF COLON MASS [id number] 11/24/2017 06:33:00 11/24/2017 12:47:00 DIS Outpatient TELMA GRIER MD [facility] PREOP COLONOSCOPY [id number] 11/19/2017 13:56:00 11/19/2017 00:01:00 DIS Outpatient RICHMOND PADILLA MD [facility] ONC [id number] 10/07/2017 13:21:00 10/07/2017 23:59:59 CLS Outpatient JOSE ARMANDO FREY FACC, ALI FACP CCDS [facility] CARD R06.02 SHORTNESS OF BREATH [id number] 10/06/2017 08:21:00 10/06/2017 23:59:59 CLS Outpatient JOSE ARMANDO FREY FACC, NOEMI FACVaishali CCDS [facility] CARD R06.02 SHORTNESS OF BREATH [id number] 09/16/2017 08:54:00 09/16/2017 23:59:59 CLS Outpatient RICHMOND PADILLA MD [facility] RAD 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 [id number] 08/14/2017 12:36:00 08/20/2017 14:30:00 DIS Outpatient NII BORDEN [facility] ONC [id number] 08/19/2017 09:08:00 08/19/2017 23:59:59 CLS Outpatient RICHMOND PADILLA MD [facility] RAD 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 [id number] 06/29/2017 10:04:00 06/29/2017 23:59:59 CLS Outpatient KAREN MORALES DO [facility] RAD DYSPHAGIA TO SOLIDS R13.10 [id number] 06/25/2017 09:57:00 06/25/2017 23:59:59 CLS Outpatient ANNETTE JIMENEZ [facility] RAD Z78.0 [id number] 05/26/2017 15:31:00 06/13/2017 00:01:00 DIS Outpatient NII BORDEN [facility] ONC [id number] 05/19/2017 10:17:00 05/19/2017 23:59:59 CLS Outpatient ANNETTE JIMENEZ [facility] 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 [id number] 05/11/2017 12:49:00 05/11/2017 23:59:59 CLS Outpatient JIMENEZ ANNETTE Pati RENTERIA [facility] RAD R92.8 [id number] 05/06/2017 10:36:00 05/06/2017 23:59:59 CLS Outpatient LEILA FLORES MD [facility] RAD R92.8 [id number] 04/29/2017 10:17:00 04/29/2017 23:59:59 CLS Outpatient NOBLE STILL APRN [facility] RAD SIGMOID MASS, DIVERTICULOSIS [id number] 04/22/2017 11:00:00 04/22/2017 16:00:00 DIS Outpatient TELMA GRIER MD [facility] ENDO ANEMIA CHANGE BOWEL HABITS HX OF BLACK TARRY STOOL [id number] 04/21/2017 13:19:00 04/21/2017 13:27:00 DIS Outpatient TELMA GRIER MD [facility] PREOP ANEMIA CHANGE BOWEL HABITS HX BLACK TARRY STOOL [id number] 04/16/2017 11:30:00 04/16/2017 23:59:59 CLS Preadmit FABIÁN POSADA MD [facility] RAD SCREENING [id number] 04/16/2017 11:17:00 04/16/2017 23:59:59 CLS Outpatient FABIÁN POSADA MD [facility] RAD R63.4 ABNORMAL WEIGHT LOSS SCREENING [id number] 04/09/2017 13:34:00 04/09/2017 23:59:59 CLS Outpatient FABIÁN POSADA MD [facility] ONC [id number] 03/25/2017 12:40:00 03/25/2017 16:00:00 DIS Outpatient YANA HODGSON MD [facility] WOUNDCARE [id number] 02/19/2017 17:25:00 02/21/2017 12:57:00 DIS Outpatient TELMA GRIER MD [facility] SDC R THORACIC RADICULOPATHY [id number] 02/05/2017 12:16:00 02/05/2017 23:59:59 CLS Outpatient FABIÁN POSADA MD [facility] RAD C54.1 [id number] 01/05/2017 13:07:00 01/11/2017 00:01:00 DIS Outpatient FABIÁN POSADA MD [facility] ONC [id number] 08/28/2016 12:55:00 10/08/2016 00:01:00 DIS Outpatient FABIÁN POSADA MD [facility] ONC [id number] 07/10/2016 09:13:00 07/10/2016 23:59:59 CLS Outpatient FABIÁN POSADA MD [facility] RAD UTERINE CA [id number] 04/17/2016 13:49:00 06/23/2016 10:30:00 DIS Outpatient FABIÁN POSADA MD [facility] ONC [id number] 06/12/2016 11:57:00 06/12/2016 23:59:59 CLS Outpatient KAREN MORALES DO [facility] DYSURIA, POSSIBLE UTI [id number] 04/23/2016 16:55:00 04/23/2016 23:59:59 CLS Outpatient KAREN MORALES DO [facility] POSSIBLE C DIFF, DIARRHEA [id number] 03/20/2016 10:27:00 04/02/2016 00:01:00 DIS Outpatient FABIÁN POSADA MD [facility] ONC [id number] 03/17/2016 11:38:00 03/17/2016 15:24:00 DIS Emergency JAMEL HUGH BAEZ [facility] ER DIZZINESS [id number] 01/15/2016 12:02:00 01/15/2016 23:59:59 CLS Outpatient FABIÁN POSADA MD [facility] RAD UTERINE CANCER [id number] 01/10/2016 11:44:00 01/10/2016 23:59:59 CLS Outpatient FABIÁN POSADA MD [facility] RAD [id number] 01/09/2016 12:25:00 01/09/2016 15:00:00 DIS Outpatient YANA HODGSON MD [facility] WOUNDCARE [id number] 12/27/2015 09:54:00 12/30/2015 00:01:00 DIS Outpatient FABIÁN POSADA MD [facility] ONC [id number] 10/31/2015 12:55:00 10/31/2015 23:59:59 CLS Outpatient KAREN MORALES DO [facility] RAD EDEMA LEFT LEG [id number] 10/11/2015 06:16:00 10/11/2015 23:59:59 CLS Outpatient TELMA GRIER MD [facility] SDC ENDOMETRIAL CANCER [id number] 10/10/2015 13:30:00 10/10/2015 23:59:59 CLS Outpatient FABIÁN POSADA MD [facility] RAD ENDOMETRIAL CA [id number] 10/09/2015 10:57:00 10/09/2015 23:59:59 CLS Outpatient TELMA GRIER MD [facility] PREOP PORT PLACEMENT [id number] 10/04/2015 10:58:00 10/04/2015 23:59:59 CLS Outpatient ANNETTE JIMENEZ [facility] ONC [id number] 08/24/2015 12:26:00 09/12/2015 00:01:00 DIS Outpatient FABIÁN POSADA MD [facility] ONC [id number] 08/02/2015 21:58:00 08/06/2015 13:45:00 DIS Inpatient KAREN MORALES DO [facility] 4TH UTI,INTRACTABLE PAIN OF BUTTOCK,R/T RADIATION BURN [id number] 06/13/2015 12:33:00 06/13/2015 00:01:00 DIS Outpatient FABIÁN POSADA MD [facility] ONC [id number] 05/29/2015 10:34:00 05/29/2015 23:59:59 CLS Outpatient FABIÁN POSADA MD [facility] RAD ENDOMETRIAL CA [id number] 05/16/2015 12:32:00 05/25/2015 12:00:00 DIS Outpatient COLTHMAYTE CARDOSO DO [facility] WOUNDCARE [id number] 04/23/2015 13:56:00 04/23/2015 23:59:59 CLS Outpatient YANA BYRNES DO [facility] RAD POST MENOPAUSAL BLEEDING WITH MASS [id number] 04/13/2015 12:24:00 04/13/2015 23:59:59 CLS Outpatient LY MORALES [facility] RAD VAG BLEEDING [id number] 03/28/2015 12:02:00 03/28/2015 23:59:59 CLS Outpatient COLTHARP MAYTE BAEZ A [facility] RAD ULCER,DM,VENOUS INSUFFICIENCY [id number] 12/17/2014 07:48:00 12/17/2014 10:14:00 DIS Emergency VIRGILIO FREY, SANTIAGO Berkowitz [facility] ER CONGESTION [id number] 10/01/2018 15:53:00 ACT Emergency TOMMY FREY, DAMIAN Krueger [facility] ER ALTERED MENTAL STATE,DEMENTIA [id number] 10/05/2014 13:17:34 10/05/2014 13:17:34 DIS Outpatient [id number] 03/05/2015 17:16:57 Document Registration [id number] 03/05/2015 17:16:54 Document Registration [id number] 03/05/2015 17:16:50 Document Registration [id number] 03/05/2015 17:16:46 Document Registration [id number] 02/19/2015 14:34:20 Document Registration [id number] 02/19/2015 14:34:17 Document Registration [id number] 02/19/2015 14:34:13 Document Registration [id number] 02/19/2015 14:34:10 Document Registration [id number] 02/19/2015 14:34:05 Document Registration [id number] 02/19/2015 14:33:50 Document Registration [id number] 02/19/2015 14:33:45 Document Registration [id number] 08/07/2014 15:17:00 Document Registration [id number] 05/23/2014 18:42:00 Document Registration [email or web address] 06/25/2015 14:01:15 ACT Document Registration
--- NOTE | 2018-10-01 16:35 | ED Neurological Problem ---
General Stated Complaint: ALTERED MENTAL STATE,DEMENTIA Source: patient, family Exam Limitations: clinical condition History of Present Illness Date Seen by Provider: Oct 01, 2018 Time Seen by Provider: 15:30 Initial Comments This 78-year-old female presents via the paramedics with a change in mentation. The patient was noted to be extremely combative this morning subsequently precipitating the paramedics call this evening to the snf. This is unusual behavior for the patient. There was no easily identified associated symptoms such as fever or chills, productive cough, shortness of breath, chest pain, vomiting or diarrhea, dysuria , flank pain, or frequency. No new medications were given to the patient. In route the patient's agitation was treated with ketamine 400 mg IM. After arrival in the emergency department patient had a fall of her pulse oximeter into the 70s. The patient was oxygenated with a bag valve mask. Patient's pulse oximeter was 100 percent with bag valve mask. Preparations were initiated to intubate the patient. Patient received Versed and succinyl choline IV. As we prepared to intubate the patient the family arrived with a apparently valid DO NOT RESUSCITATE order for the patient. It was their wishes that the patient not be intubated. We have initiated laboratory testing on the patient. Allergies and Home Medications Allergies Coded Allergies: miconazole (Verified Allergy, Intermediate, RASH, 04/21/17) rash/hives ampicillin (Unverified Allergy, Unknown, 04/21/17) lanolin (Unverified Allergy, Unknown, 04/21/17) Rxeyymp-Tsg-Wfa Reductase Inhibitor (Unverified Adverse Reaction, Unknown , 04/21/17) adhesive tape (Unverified Adverse Reaction, Unknown, 04/21/17) latex (Unverified Adverse Reaction, Unknown, 04/21/17) Home Medications Amitriptyline HCl 25 Mg Tablet, 25 MG PO HS, (Reported) Amlodipine Besylate 5 Mg Tablet, 5 MG PO DAILY Prescribed by: LIBORIO FELDMAN on 09/09/18 0859 Calcium Carbonate/Vitamin D3 1 Each Tablet, 1 EACH PO BID, (Reported) Carboxymethylcellulose Sodium 15 Ml Drops, 1-2 DROPS OU QID PRN for DRY EYES, ( Reported) Ciprofloxacin HCl 500 Mg Tablet, 500 MG PO BID Prescribed by: LIBORIO FELDMAN on 09/09/18 0859 Citalopram Hydrobromide 10 Mg Tablet, 10 MG PO HS, (Reported) Cranberry Conc/Ascorbic Acid 1 Each Capsule, 2 EACH PO DAILY, (Reported) Desmopressin Acetate 0.2 Mg Tablet, 0.2 MG PO HS, (Reported) Insulin Glargine,Hum.rec.anlog 100 Unit/1 Ml Insuln.pen, 20 UNIT SQ HS, ( Reported) Letrozole 2.5 Mg Tablet, 2.5 MG PO DAILY, (Reported) Lisinopril 20 Mg Tablet, 20 MG PO DAILY, (Reported) Magnesium Oxide 400 Mg Capsule, 500 MG PO 1200, (Reported) Multivits,Ca,Minerals/Iron/FA 1 Each Tablet, 1 EACH PO DAILY, (Reported) Pantoprazole Sodium 40 Mg Tablet.dr, 40 MG PO DAILY Prescribed by: JASON BE on 02/21/17 1421 Ranitidine HCl 150 Mg Tablet, 150 MG PO DAILY PRN for HEARTBURN, (Reported) Solifenacin Succinate 5 Mg Tablet, 10 MG PO DAILY, (Reported) Triamcinolone Acet 15 Gm Cr, 1 GM TP DAILY, (Reported) Vit C/Vit E/Lutein/Min/[place]-3 1 Each Capsule, 1 CAP PO DAILY, (Reported) [Trubiotic] , 1 TAB PO 1200, (Reported) Patient Home Medication List Home Medication List Reviewed: Yes Review of Systems Review of Systems Constitutional: No chills, No fever Eyes: No Symptoms Reported Ears, Nose, Mouth, Throat: no symptoms reported Respiratory: No cough Cardiovascular: No chest pain Gastrointestinal: No abdominal pain, No diarrhea, No nausea, No vomiting Genitourinary: No dysuria, No frequency : No Musculoskeletal: no symptoms reported Skin: No change in color, No rash Psychiatric/Neurological: Cognitive Dysfunction, Other (agitation) Endocrine: No Symptoms Reported Hematologic/Lymphatic: No Symptoms Reported Past Hbevwzj-Vhlzpw-Wntvml Hx Past Med/Social Hx: Reviewed Nursing Past Med/Soc Hx Patient Social History Recent Hopitalizations: No Immunizations Up To Date Tetanus Booster (TDap): Unknown Date of Pneumonia Vaccine: Oct 02, 2015 Date of Influenza Vaccine: Jun 23, 2017 Seasonal Allergies Seasonal Allergies: No Past Medical History Surgeries: Yes (bilat knee scopes, umb hernia, R breast lumpectomy, ) Abdominal, Section, Eye Surgery, Gallbladder, Hysterectomy, Oophorectomy, Orthopedic Respiratory: No Cardiac: Yes Chronic Edema/Swelling Neurological: Yes Neuropathy Reproductive Disorders: Yes (CANCER--SEE BELOW) Sexually Transmitted Disease: No HIV/AIDS: No Genitourinary: No Renal Failure Gastrointestinal: No (hx of colon mass) Musculoskeletal: Yes Degenerate Disk Disease, Arthritis, Chronic Back Pain Endocrine: Yes (Type II, obesity) Diabetes, Insulin dep HEENT: Yes Macular Degeneration Loss of Vision: Bilateral Hearing Impairment: Denies Cancer: Yes (ENDOMETRIAL ) Breast, Uterine, Vaginal Did You Recieve Any Treatments: Yes What Type of Treatment Did You: Chemotherapy, Radiation, Surgical Intervention Psychosocial: Yes Sleep Difficulties Integumentary: Yes Pruritis, Recent Skin Changes Blood Disorders: No ("bleeds easily") Adverse Reaction/Blood Tranf: No Family Medical History FH: lung cancer G8 SISTER FH: stomach cancer G8 BROTHER FH: uterine cancer 19 MOTHER Myocardial infarction 19 FATHER Neoplasm SON No Pertinent Family Hx, Hypertension Physical Exam Vital Signs Capillary Refill : Height, Weight, BMI Height: 4'11.00" Weight: 184lbs. 8.0oz. 83.159563ht; 37.2 BMI Method:Stated General Appearance: moderate distress HEENT: normal ENT inspection Neck: supple Respiratory: decreased breath sounds Cardiovascular: regular rate, rhythm Gastrointestinal: normal bowel sounds, non tender, soft Back: normal inspection Extremities: normal inspection Neurologic/Psychiatric: other (the patient moved 4 extremities spontaneously. She appeared to have grossly normal sensation.) Focused Exam Lactate Level 10/01/18 15:55: Lactic Acid Level 1.16 Lactic Acid Level Laboratory Tests Test 10/01/18 15:55 Lactic Acid Level 1.16 MMOL/L (0.50-2.00) Progress/Results/Core Measures Results/Orders Lab Results Laboratory Tests Test 10/01/18 15:55 10/01/18 16:56 Range/Units White Blood Count 5.4 4.3-11.0 10^3/uL Red Blood Count 3.37 L 4.35-5.85 10^6/uL Hemoglobin 10.5 L 11.5-16.0 G/DL Hematocrit 30 L 35-52 % Mean Corpuscular Volume 90 80-99 FL Mean Corpuscular Hemoglobin 31 25-34 PG Mean Corpuscular Hemoglobin Concent 35 32-36 G/DL Red Cell Distribution Width 13.6 10.0-14.5 % Platelet Count 358 130-400 10^3/uL Mean Platelet Volume 9.0 7.4-10.4 FL Neutrophils (%) (Auto) 67 42-75 % Lymphocytes (%) (Auto) 15 12-44 % Monocytes (%) (Auto) 14 H 0-12 % Eosinophils (%) (Auto) 3 0-10 % Basophils (%) (Auto) 1 0-10 % Neutrophils # (Auto) 3.6 1.8-7.8 X 10^3 Lymphocytes # (Auto) 0.8 L 1.0-4.0 X 10^3 Monocytes # (Auto) 0.8 0.0-1.0 X 10^3 Eosinophils # (Auto) 0.2 0.0-0.3 10^3/uL Basophils # (Auto) 0.0 0.0-0.1 10^3/uL Sodium Level 130 L 135-145 MMOL/L Potassium Level 4.2 3.6-5.0 MMOL/L Chloride Level 93 L 98-107 MMOL/L Carbon Dioxide Level 25 21-32 MMOL/L Anion Gap 12 5-14 MMOL/L Blood Urea Nitrogen 21 H 7-18 MG/DL Creatinine 1.08 0.60-1.30 MG/DL Estimat Glomerular Filtration Rate 49 BUN/Creatinine Ratio 19 Glucose Level 81 70-105 MG/DL Lactic Acid Level 1.16 0.50-2.00 MMOL/L Calcium Level 9.7 8.5-10.1 MG/DL Corrected Calcium 9.8 8.5-10.1 MG/DL Total Bilirubin 0.5 0.1-1.0 MG/DL Aspartate Amino Transf (AST/SGOT) 23 5-34 U/L Alanine Aminotransferase (ALT/SGPT) 12 0-55 U/L Alkaline Phosphatase 81 40-136 U/L Total Protein 7.3 6.4-8.2 GM/DL Albumin 3.9 3.2-4.5 GM/DL Lipase 13 8-78 U/L Glucometer 94 70-110 MG/DL My Orders Orders - DAMIAN SANDERS MD Cbc With Automated Diff (10/01/18 15:58) Comprehensive Metabolic Panel (10/01/18 15:58) Ua Culture If Indicated (10/01/18 15:58) Lipase (10/01/18 15:58) Ekg Tracing (10/01/18 15:58) Ct Head Wo (10/01/18 15:58) Chest 1 View, Ap/Pa Only (10/01/18 15:58) Blood Culture (10/01/18 15:58) Lactic Acid Analyzer (10/01/18 15:58) Ns Iv 1000 Ml (Sodium Chloride 0.9%) (10/01/18 16:00) Progress Progress Note : Time: 17:55 Progress Note The patient's labs and radiologic evaluation were unremarkable. At the time of admission the patient's sat was 100% on a non-rebreather. Dr. Torres was kind enough to admit the patient. The patient was made DO NOT RESUSCITATE per the patient's and the family's wishes Departure Communication (Admissions) Time/Spoke to Admitting Phy: 17:59 Dr. Torres Impression Primary Impression: Change in behavior Additional Impression: Aspiration into airway Qualified Codes: T17.908A - Unspecified foreign body in respiratory tract, part unspecified causing other injury, initial encounter Disposition: ADMITTED INPATIENT Condition: Improved Admissions Decision to Admit Reason: Admit from ER (General) Decision to Admit/Date: Oct 01, 2018 Time/Decision to Admit Time: 17:59 Departure-Patient Inst. Referrals: KAREN MORALES DO (PCP/Family) Primary Care Physician DAMIAN SANDERS MD Oct 01, 2018 16:34
[2018-10-01 16:38] LABS: BASOPHILS % (AUTO) 1 % (0-10); EOSINOPHILS # (AUTO) 0.2 10^3/uL (0.0-0.3); EOSINOPHILS % (AUTO) 3 % (0-10); HEMATOCRIT 30 % (35-52); HEMOGLOBIN 10.5 G/DL (11.5-16.0); LYMPHOCYTES # (AUTO) 0.8 X 10^3 (1.0-4.0); LYMPHOCYTES % (AUTO) 15 % (12-44); MEAN CORPUSCULAR HEMOGLOBIN 31 PG (25-34); MEAN CORPUSCULAR HGB CONC 35 G/DL (32-36); MEAN CORPUSCULAR VOLUME 90 FL (80-99); MONOCYTES # (AUTO) 0.8 X 10^3 (0.0-1.0); MONOCYTES % (AUTO) 14 % (0-12); NEUTROPHILS # (AUTO) 3.6 X 10^3 (1.8-7.8); NEUTROPHILS % (AUTO) 67 % (42-75); PLATELET COUNT 358 10^3/uL (130-400); RED BLOOD COUNT 3.37 10^6/uL (4.35-5.85); RED CELL DISTRIBUTION WIDTH 13.6 % (10.0-14.5); WHITE BLOOD COUNT 5.4 10^3/uL (4.3-11.0)
[2018-10-01 16:57] LABS: ALBUMIN 3.9 GM/DL (3.2-4.5); BILIRUBIN,TOTAL 0.5 MG/DL (0.1-1.0); CALCIUM 9.7 MG/DL (8.5-10.1); CREATININE SERUM 1.08 MG/DL (0.60-1.30); POTASSIUM 4.2 MMOL/L (3.6-5.0); TOTAL PROTEIN 7.3 GM/DL (6.4-8.2)
--- NOTE | 2018-10-01 17:08 | Diagnostic Imaging Report ---
INDICATION: Respiratory distress. Portable chest at 04:58 p.m. FINDINGS: Heart size and pulmonary vascularity are normal. Lungs are clear. There are no effusions or pneumothoraces. IMPRESSION: Negative chest. Dictated by: Dictated on workstation # [id number]
--- NOTE | 2018-10-01 17:46 | Diagnostic Imaging Report ---
PROCEDURE: CT head without contrast. TECHNIQUE: Multiple contiguous axial images were obtained through the brain without the use of intravenous contrast. INDICATION: Confusion. COMPARISON: 09/06/2018. FINDINGS: Mild age-related cerebral volume loss and moderate chronic small vessel ischemic changes are present. There is no midline shift or mass effect. There is no hemorrhage or evidence of acute ischemia. No extra-axial fluid collection is seen. Bony calvarium, visualized paranasal sinuses and mastoids are normal. IMPRESSION: No acute intracranial abnormality. No focus of acute ischemia or hemorrhage is present. Dictated by: Dictated on workstation # [id number]
--- NOTE | 2018-10-01 18:13 | NUR ---
Attempt to call report.
--- NOTE | 2018-10-01 18:50 | NUR ---
PT ARRIVED ON FLOOR AT 1850. REPORT RECEIVED FROM DAY SHIFT MED/PHYSICAL THERAPIST ASSISTANTFREDDIE GARCIA AT 1930. SUSANA BELCHER admitted to room 408-1, with an admitting diagnosis of change in mentation, possible aspiration on 10/01/18 from ED via stretcher, accompanied by family and staff. SUSANA BELCHER introduced to surroundings, call light, bed controls, phone, TV, temperature control, lights, meal times, smoking policy, visitor policy, side rail policy, bathrooms and showers. Patient Rights given to patient in the handbook. USSANA BELCHER verbalizes understanding that [facility] is not responsible for the loss or damage to any personal effects or valuables that are kept in the patients posession during their hospitalization. Patient and/or family were informed about the Rapid Response Team and its purpose.
[2018-10-01] MEDS ORDERED: LORazepam INJ 2 MG/ML (ATIVAN) VIAL IV PRN (19:00)
[2018-10-01] MEDS ORDERED: CATHETER FLUSH 10 ML SYR IV PRN (19:00)
--- OUTSIDE RECORDS SUMMARY | 2018-10-01 19:25 | XMS REPORT | Clinical Summary ---
Author Author [facility] Organization [facility] Address Unknown Phone Unavailable Care Team Providers Care Clerical Aide Name Role Phone Missael Jaramillo MD PCP Nadege Knapp RN Unavailable Unavailable Natasha Echols MD Unavailable Source Comments Some departments are not documenting in the electronic medical record. If you do not see the information that you expected, contact Release of Information in the Health Information Management department at [phone] for further assistance in locating additional records.[facility] Allergies Comments Active Allergy Reactions Severity Noted Date Amoxicillin RASH Medium 05/07/2015 Chocolate HEADACHE Low 05/07/2015 Irbesartan RASH Medium 10/02/2017 Patient experiences swelling and hot skin to the touch. 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 Right breast sono-guided biopsy 05/11/17 ([place], [place]) revealed grade 2 invasive ductal carcinoma. Ms. Nicole has been followed by Dr. Tello and is currently getting endocrine therapy. A PET/CT was ordered in May 2017 which showed abnormal uptake in the pelvis and there was a possible rectosigmoid mass. Ms. Nicole underwent right lumpectomy on 10/29/17. PATHOLOGY: Tumor: 1.5 cm ILC Margins Free From Tumor: Yes ER: positive ID: positive Her 2: negative Grade: 2 LVSI: no BREAST IMAGING: Mammogram: -- Bilateral screening mammogram 04/16/17 ([place], [place]) revealed scattered fibroglandular densities. In the [...] unremarkable. Ultrasound: -- Right breast ultrasound 05/06/17 ([place], [place]) revealed a poorly defined spiculated hypoechoic mass measuring 1.6 x 1.5 x 1.6 cm in the region of mammogram finding. There was internal blood flow. Biopsy was recommended. -- Right breast ultrasound 08/19/17 ([place], [place]) revealed at 9:30, 6 cm FTN, there was a hypoechoic mass with irregular margins measuring 1.3 x 1.5 x 1.4 cm and demonstrated internal vascularity which appeared slightly less prominent compared to previous exam. This was minimally smaller in size compared to prior measurement of 1.6 x 1.5 x 1.6 cm. -- Right breast ultrasound 09/16/17 ([place], [place]) revealed at 9:30, 6 cm FTN [...] axillary lymph node. Other: -- PET/CT 05/19/17 ([place], [place]) revealed abnormal uptake involving the left [...] hysterectomy 05/15/[address] Mario Michael in [place], [place] with a diagnosis of endometrial FIGO grade 1. Per pt., was told that they got it all and did not need further tx. Pt. has not had annual pelvic examinations or f/u since that time. 2. Pt. was referred from PCP Dr. Jaramillo to SURVEY ANALYST Dr. Salinas in [place], [place] on 04/18/15 for post-menopausal bleeding beginning [...] her CT Scan, which was done in [place], I suspect the areas of interest are: [...] thought of traveling from her home in [place] to the cancer center, radiation/chemotherapy. I also discussed her options should she decline any therapy-would recommend hospice. Consideration for epidural pain pump in the event of progressive pain. I have contacted the [facility] [place] and she has been scheduled with one [...] Taken Vital Sign Reading 08/03/2018 2:16 PM UPHOLSTERY REPAIRER Blood Pressure 158/61 08/03/2018 2:16 PM UPHOLSTERY REPAIRER Pulse 65 08/03/2018 2:16 PM UPHOLSTERY REPAIRER Temperature 36.8 C (98.2 F) 08/03/2018 2:16 PM UPHOLSTERY REPAIRER Respiratory Rate 18 08/03/2018 2:16 PM UPHOLSTERY REPAIRER Oxygen Saturation 100% - Inhaled Oxygen - Concentration 08/03/2018 2:16 PM UPHOLSTERY REPAIRER Weight 83.7 kg (184 lb 9.6 oz) 08/03/2018 2:16 PM UPHOLSTERY REPAIRER Height 154.9 cm (5' 1") 08/03/2018 2:16 PM UPHOLSTERY REPAIRER Body Mass Index 34.88 Plan of Treatment [...] Type Area Manufactur er 06/02/2018 / / [id number] Smark-10/08/2017 Clip Implanted: Qty: 1 on 10/08/2017 by Mauro Pacheco MD Procedures Comments Procedure Name Priority Date/Time Associated Diagnosis MAMMO DIAGNOSTIC JUAN PABLO/DAYANA Routine 08/03/2018 Malignant neoplasm of 3:15 PM UPHOLSTERY REPAIRER upper-outer quadrant of right breast in female, estrogen receptor positive (HCC) from Last 3 Months Results * MAMMO DIAGNOSTIC JUAN PABLO/DAYANA (08/03/2018 3:15 PM UPHOLSTERY REPAIRER) Impressions Performed At [facility] BI-RADS Assessments: BIRAD 2-Benign [facility] RAD RESULTS RECOMMENDATION: Routine screening mammogram in 1 year. Narrative Performed At Last mammogram was performed 1 year and 3 months ago. [facility] RAD RESULTS Reason for exam: history of breast cancer, conservation therapy. first time back since surgery [id number] MAMMO DIAGNOSTIC JUAN PABLO/DAYANA: AUGUST 03, 2018 - 2D/3D Procedure 3D Routine views. 2D Routine views. Technologists: Angie Young, Bank Operations Officer; Eladia Goodson Prior study comparison: October 08, 2017, right breast [id number] MAMMO DIAG RT performed at [facility].October 02, 2017, right breast [id number] MAMMO DIAGNOSTIC RT/DAYANA performed at [facility]. May 11, 2017, mammogram.April 16, 2017, [...] signed and approved by: Mauro Pacheco M.D. [id number] Procedure Note Interface, Radiant Results - 08/03/2018 3:43 PM UPHOLSTERY REPAIRER Last mammogram was performed 1 year and 3 months ago. Reason for exam: history of breast cancer, conservation therapy. first time back since surgery [id number] MAMMO DIAGNOSTIC JUAN PABLO/DAYANA: AUGUST 03, 2018 - 2D/3D Procedure 3D Routine views. 2D Routine views. Technologists: Angie Young, Bank Operations Officer; Eladia Goodson Prior study comparison: October 08, 2017, right breast [id number] MAMMO DIAG RT performed at [facility]. October 02, 2017, right breast [id number] MAMMO DIAGNOSTIC RT/DAYANA performed at [facility]. May 11, 2017, mammogram. April 16, [...] signed and approved by: Mauro Pacheco M.D. [id number] IMPRESSION ACR BI-RADS Assessments: BIRAD 2-Benign RECOMMENDATION: [...] on file. For more information, please contact: [facility] [address] [place] [address]
--- OUTSIDE RECORDS SUMMARY | 2018-10-01 19:25 | XMS REPORT | Encounter Summary ---
Author Author [facility] Organization [facility] Address Unknown Phone Unavailable Care Team Providers Care Driver Education Instructor Name Role Phone Missael Jaramillo MD PCP Nadege Knapp RN Unavailable Unavailable Natasha Echols MD Unavailable Reason for Visit * Radiology Services (Routine) Referred By Contact Referred To Contact Status Reason Specialty Diagnoses / Procedures Franca Bills PA-C [address] [place] [address] Ic1 Mammo [address] [place] [address] No Auth Needed Radiology Diagnoses [id number] P rocedures DIGITAL MAMMO SCREEN BILAT HR/DAYANA/CAD DIGITAL MAMMO DX JUAN PABLO DAYANA Encounter Details Care Team Description Date Type Department Kirk Cho DO [address] [place] [address] [phone] 08/03/2018 Hospital [facility] Encounter [facility] [address] [place] [address] Social History Date Tobacco Use Types Packs/Day [...] Routine 08/03/2018 Malignant neoplasm of 3:15 PM CLINICAL STAFF RN upper-outer quadrant of right breast in female, estrogen receptor positive (HCC) in this encounter Results * MAMMO DIAGNOSTIC JUAN PABLO/DAYANA (08/03/2018 3:15 PM CLINICAL STAFF RN) Impressions Performed At [facility] BI-RADS Assessments: BIRAD 2-Benign [facility] RAD RESULTS RECOMMENDATION: Routine screening mammogram in 1 year. Narrative Performed At Last mammogram was performed 1 year and 3 months ago. [facility] RAD RESULTS Reason for exam: history of breast cancer, conservation therapy. first time back since surgery [id number] MAMMO DIAGNOSTIC JUAN PABLO/DAYANA: AUGUST 03, 2018 - 2D/3D Procedure 3D Routine views. 2D Routine views. Technologists: Angie Young, Iron Setter; Eladia Goodson Prior study comparison: October 08, 2017, right breast [id number] MAMMO DIAG RT performed at [facility].October 02, 2017, right breast [id number] MAMMO DIAGNOSTIC RT/DAYANA performed at [facility]. May 11, 2017, mammogram.April [...] signed and approved by: Mauro Pacheco M.D. [id number] Procedure Note Interface, Radiant Results - 08/03/2018 3:43 PM CLINICAL STAFF RN Last mammogram was performed 1 year and 3 months ago. Reason for exam: history of breast cancer, conservation therapy. first time back since surgery [id number] MAMMO DIAGNOSTIC JUAN PABLO/DAYANA: AUGUST 03, 2018 - 2D/3D Procedure 3D Routine views. 2D Routine views. Technologists: Angie Young, Iron Setter; Eladia Goodson Prior study comparison: October 08, 2017, right breast [id number] MAMMO DIAG RT performed at [facility]. October 02, 2017, right breast [id number] MAMMO DIAGNOSTIC RT/DAYANA performed at [facility]. May 11, 2017, mammogram. [...] signed and approved by: Mauro Pacheco M.D. [id number] IMPRESSION ACR BI-RADS Assessments: BIRAD 2-Benign RECOMMENDATION: Routine screening mammogram in 1 year. Performing Organization Address City/State/Zipcode Phone Number [facility] RAD RESULTS in this encounter Visit Diagnoses Diagnosis Malignant neoplasm of upper-outer quadrant of right breast in female, estrogen receptor positive (HCC) in this encounter
--- OUTSIDE RECORDS SUMMARY | 2018-10-01 19:25 | XMS REPORT | Encounter Summary ---
Author Author [facility] Organization [facility] Address Unknown Phone Unavailable Care Team Providers Care Real Estate Investor Name Role Phone Missael Jaramillo MD PCP Nadege Knapp RN Unavailable Unavailable Natasha Echols MD Unavailable Reason for Visit * Reason Comments Heme/Onc Care Encounter Details Care Team Description Date Type Department Kirk Cho DO [address] [place] [address] [phone] Franca Bills PA-C [address] [place] [address] [place] [address] [phone] Malignant neoplasm of upper-outer quadrant of right breast in female, estrogen receptor positive (HCC) (Primary Dx) 08/03/2018 Office Visit [facility] - IC Exam [id number] [place], [place] [address] Social History Date Tobacco Use Types Packs/Day [...] Taken Vital Sign Reading 08/03/2018 2:16 PM CARPENTER ASSISTANT INSTALLER Blood Pressure 158/61 08/03/2018 2:16 PM CARPENTER ASSISTANT INSTALLER Pulse 65 08/03/2018 2:16 PM CARPENTER ASSISTANT INSTALLER Temperature 36.8 C (98.2 F) 08/03/2018 2:16 PM CARPENTER ASSISTANT INSTALLER Respiratory Rate 18 08/03/2018 2:16 PM CARPENTER ASSISTANT INSTALLER Oxygen Saturation 100% - Inhaled Oxygen - Concentration 08/03/2018 2:16 PM CARPENTER ASSISTANT INSTALLER Weight 83.7 kg (184 lb 9.6 oz) 08/03/2018 2:16 PM CARPENTER ASSISTANT INSTALLER Height 154.9 cm (5' 1") 08/03/2018 2:16 PM CARPENTER ASSISTANT INSTALLER Body Mass Index 34.88 in this encounter [...] Franca Bills PA-C - 08/03/2018 2:15 PM CARPENTER ASSISTANT INSTALLER Name: Ayleen Nicole : 1940 AGE: 78 [...] was recommended. Right breast sono-guided biopsy 05/11/17 ([place], [place]) revealed grade 2 invasive ductal carcinoma. [...] IMAGING: Mammogram: -- Bilateral screening mammogram 04/16/17 ([place], [place]) revealed scattered fibroglandular densities. In the [...] unremarkable. Ultrasound: -- Right breast ultrasound 05/06/17 ([place], [place]) revealed a poorly defined spiculated hypoechoic mass measuring 1.6 x 1.5 x 1.6 cm in the region of mammogram finding. There was internal blood flow. Biopsy was recommended. -- Right breast ultrasound 08/19/17 ([place], [place]) revealed at 9:30, 6 cm FTN, there was a hypoechoic mass with irregular margins measuring 1.3 x 1.5 x 1.4 cm and demonstrated internal vascularity which appeared slightly less prominent compared to previous exam. This was minimally smaller in size compared to prior measurement of 1.6 x 1.5 x 1.6 cm. -- Right breast ultrasound 09/16/17 ([place], [place]) revealed at 9:30, 6 cm FTN [...] axillary lymph node. Other: -- PET/CT 05/19/17 ([place], [place]) revealed abnormal uptake involving the left [...] RASH Irbesartan RASH Latex RASH and ITCHING Cxrosjw-Age-Thh Reductase Inhibitors HEADACHE and RASH Chocolate HEADACHE [...] LUMPECTOMY performed by Kirk Cho DO at [facility] OR/PERIOP COLONOSCOPY HX CATARACT REMOVAL [...] a lot of difficulty getting up to [place]. She can continue mammograms and breast exams [...] today 3. RTC PRN Franca Bills PA-C ENTER ASSISTANT INSTALLER in this encounter Plan of Treatment Not on fileas of this encounter Visit Diagnoses Diagnosis Malignant neoplasm of upper-outer quadrant of right breast in female, estrogen receptor positive (HCC) - Primary in this encounter
--- OUTSIDE RECORDS SUMMARY | 2018-10-01 19:25 | XMS REPORT | Encounter Summary ---
Author Author [facility] Organization [facility] Address Unknown Phone Unavailable Care Team Providers Care Program Specialist Name Role Phone Missael Jaramillo MD PCP Nadege Knapp RN Unavailable Unavailable Natasha Echols MD Unavailable Reason for Visit * Reason Comments Results Encounter Details Care Team Description Date Type Department Kirk Cho DO [address] [place] [address] [phone] Results 08/09/2018 Telephone [facility] - IC Exam [id number] [place] [address] Social History Date Tobacco Use Types Packs/Day [...] Ruchi Bills RN - 08/09/2018 11:33 AM PLAYERS ASSISTANT Left message for patient with results of [...] signed and approved by: Mauro Pacheco M.D. [id number] IMPRESSION ACR BI-RADS Assessments: BIRAD 2-Benign RECOMMENDATION: Routine screening mammogram in 1 year. ERS ASSISTANT in this encounter Plan of Treatment Not on fileas of this encounter Visit Diagnoses Not on filein this encounter
--- OUTSIDE RECORDS SUMMARY | 2018-10-01 19:34 | XMS REPORT | Continuity of Care Document ---
Author Author [facility] Organization [facility] Address Unknown Phone Unavailable Allergies Active Description Code Type Severity Reaction Onset Reported/Identified Relationship to Patient Clinical Status Yes LANOLIN 6227 Drug Allergy N/A N/A Yes LATEX Drug Allergy N/A N/A Yes LIPITOR [id number] Drug Allergy N/A N/A Yes STATINS Drug Allergy N/A N/A Yes SULFA Drug Allergy N/A N/A Yes metformin [id number] Drug Allergy Unknown N/A 12/23/2006 Yes miconazole [id number] Drug Allergy Moderate RASH 04/21/2017 Yes adhesive tape [id number] Drug Allergy Unknown N/A 04/21/2017 Yes ampicillin [id number] Drug Allergy Unknown N/A 04/21/2017 Yes lanolin [id number] Drug Allergy Unknown N/A 04/21/2017 Yes latex [id number] Drug Allergy Unknown N/A 04/21/2017 Yes Avzqlbw-Nol-Lfc Reductase Inhibitor [id number] Drug Allergy Unknown N/A 04/2017 Medications Medication Packaging Start Date Stop Date Route Dosage Sig LANTUS ML 07/05/2014 Subcutaneous [id number] at bedtime LYRICA 09/04/2014 ORAL 3030 at [...] ADULT 08/13/1029 FABIÁN POSADA MD, Ot Z79.4 LONGTERM (CURRENT) USE OF INSULIN 08/13/1029 FABIÁN POSADA MD, Ot Z79.899 OTHER LONGTERM (CURRENT) DRUG THERAPY 08/13/1344 RICHMOND PADILLA MD, [...] ADULT 08/13/1344 RICHMOND PADILLA MD, Ot Z79.4 LONGTERM (CURRENT) USE OF INSULIN 08/13/1344 RICHMOND PADILLA MD, Ot Z79.899 OTHER LONGTERM (CURRENT) DRUG THERAPY 08/13/1344 RICHMOND PADILLA MD [...] 465.9 ACUTE URI NOS 12/17/2014 VIRGILIO FREY, SNATIAGO Berkowitz Ot 473.9 CHRONIC SINUSITIS NOS 12/17/2014 [...] FENECH DO, YANA S Ot 625.8 04/27/2015 [facility] DO, YANA S Ot 627.1 05/04/2015 LY MORALES IT SALES REPRESENTATIVE Ot 553.1 05/04/2015 LY MORALES IT SALES REPRESENTATIVE Ot 562.10 05/15/2015 FENECH DO, YANA S [...] ADULT 08/06/2015 KAREN MORALES DO, Ot Z79.4 LONGTERM (CURRENT) USE OF INSULIN 09/12/2015 FABIÁN POSADA [...] ADULT 09/12/2015 FABIÁN POSADA MD, Ot Z79.4 LONGTERM (CURRENT) USE OF INSULIN 09/12/2015 FABIÁN POSADA MD, Ot Z79.899 OTHER LONGTERM (CURRENT) DRUG THERAPY 09/24/2015 FABIÁN POSADA MD, [...] MAYTE A Ot 707.19 10/10/2015 LY MORALES IT SALES REPRESENTATIVE Ot 553.1 10/10/2015 LY MORALES IT SALES REPRESENTATIVE Ot 562.10 10/10/2015 FENECH DO, YANA S Ot 625.8 10/10/2015 [facility] DO, YANA S Ot 627.1 10/10/2015 [...] FABIÁN Haines Ot Z79.899 10/10/2015 ANNETTE JIMENEZ IT SALES REPRESENTATIVE Ot C54.1 10/10/2015 ANNETTE JIMENEZ IT SALES REPRESENTATIVE Ot E11.319 10/10/2015 ANNETTE JIMENEZ IT SALES REPRESENTATIVE Ot E66.01 10/10/2015 ANNETTE JIMENEZ IT SALES REPRESENTATIVE Ot H54.8 10/10/2015 ANNETTE JIMENEZ IT SALES REPRESENTATIVE Ot I10 10/10/2015 ANNETTE JIMENEZ IT SALES REPRESENTATIVE Ot Z68.41 10/10/2015 ANNETTE JIMENEZ IT SALES REPRESENTATIVE Ot Z79.4 10/10/2015 ANNETTE JIMENEZ IT SALES REPRESENTATIVE Ot Z79.899 10/10/2015 MARVEL FREY, TELMA Ot [...] FABIÁN K Ot Z79.899 10/25/2015 ANNETTE JIMENEZ IT SALES REPRESENTATIVE Ot C54.1 10/25/2015 ANNETTE JIMENEZ IT SALES REPRESENTATIVE Ot E11.319 10/25/2015 ANNETTE JIMENEZ IT SALES REPRESENTATIVE Ot E66.01 10/25/2015 NANETTE JIMENEZ IT SALES REPRESENTATIVE Ot H54.8 10/25/2015 ANNETTE JIMENEZ IT SALES REPRESENTATIVE Ot I10 10/25/2015 ANNETTE JIMENEZ IT SALES REPRESENTATIVE Ot Z68.41 10/25/2015 ANNETTE JIMENEZ IT SALES REPRESENTATIVE Ot Z79.4 10/25/2015 ANNETTE JIMENEZ IT SALES REPRESENTATIVE Ot Z79.899 10/31/2015 ALBINO FREY, FABIÁN Haines Ot C54.1 11/07/2015 ALBINO FREY, FABIÁN Haines Ot C54.1 11/07/2015 ALBINO FREY, FABIÁN K Ot E11.319 11/07/2015 ALBINO FREY, FABIÁN Haines Ot E66.01 11/07/2015 ALBINO FREY, FABIÁN Haines Ot H54.8 11/07/2015 ALBINO FREY, FABIÁN K Ot I10 11/07/2015 ALBINO FREY, FABÁIN Yancy Ot Z51.0 11/07/2015 ALBINO FREY, FABIÁN [...] FREY, FABIÁN Haines Ot H54.8 11/23/2015 ALBINO FERY, FABIÁN Haines Ot I10 11/23/2015 ALBINO FREY, [...] ADULT 12/30/2015 FABIÁN POSADA MD Ot Z79.4 SHOP ESTIMATOR (CURRENT) USE OF INSULIN 12/30/2015 FABIÁN POSADA MD, Ot Z79.899 OTHER SHOP ESTIMATOR (CURRENT) DRUG THERAPY 12/31/2015 FABIÁN POSADA MD, [...] ADULT 12/31/2015 FABIÁN POSADA MD, Ot Z79.4 SHOP ESTIMATOR (CURRENT) USE OF INSULIN 12/31/2015 FABIÁN POSADA MD, Ot Z79.899 OTHER LONGTERM (CURRENT) DRUG THERAPY 12/31/2015 FABIÁN POSADA MD, [...] ADULT 12/31/2015 FABIÁN POSADA MD Ot Z79.4 SHOP ESTIMATOR (CURRENT) USE OF INSULIN 12/31/2015 FABIÁN POSADA MD, Ot Z79.899 OTHER LONGTERM (CURRENT) DRUG THERAPY 01/04/2016 YANA HODGSON MD [...] ADULT 01/10/2016 FABIÁN POSADA MD, Ot Z79.4 SHOP ESTIMATOR (CURRENT) USE OF INSULIN 01/10/2016 FABIÁN POSADA MD, Ot Z79.899 OTHER LONGTERM (CURRENT) DRUG THERAPY 01/14/2016 FABIÁN POSADA MD [...] ADULT 01/31/2016 FABIÁN POSADA MD, Ot Z79.4 SHOP ESTIMATOR (CURRENT) USE OF INSULIN 01/31/2016 FABIÁN POSADA MD, Ot Z79.899 OTHER LONGTERM (CURRENT) DRUG THERAPY 02/05/2016 FABIÁN POSADA MD, [...] 03/17/2016 JAMEL DO, HUGH K Ot Z79.4 LONGTERM (CURRENT) USE OF INSULIN 03/17/2016 JAMEL DO, HUGH K Ot Z79.899 OTHER LONGTERM (CURRENT) DRUG THERAPY 03/20/2016 JAMEL DO, HUGH K Ot C54.1 MALIGNANT NEOPLASM OF ENDOMETRIUM 03/20/2016 JMAEL DO, HUGH K Ot 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 03/20/2016 JAMEL DO, HUGH K Ot E11.649 TYPE 2 DIABETES MELLITUS WITH HYPOGLYCEM 03/20/2016 JAMLE DO, HUGH K Ot E66.9 OBESITY, UNSPECIFIED 03/20/2016 JAMEL DO, HUGH K Ot N39.0 URINARY TRACT INFECTION, SITE NOT SPECIF 03/20/2016 JAMEL DO, HUGH K Ot Z79.4 LONGTERM (CURRENT) USE OF INSULIN 03/20/2016 JAMEL DO, HUGH K Ot Z79.899 OTHER SHOP ESTIMATOR (CURRENT) DRUG THERAPY 03/20/2016 JAMEL DO, HUGH K Ot 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 NEOPLASM OF ENDOMETRIUM 03/20/2016 HUGH MCCULLOUGH DO Ot 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 03/20/2016 HUGH MCCULLOUGH DO Ot E11.649 TYPE 2 DIABETES MELLITUS WITH HYPOGLYCEM 03/20/2016 HUGH MCCULLOUGH DO Ot E66.9 OBESITY, UNSPECIFIED 03/20/2016 HUGH MCCULLOUGH DO Ot N39.0 URINARY TRACT INFECTION, SITE NOT SPECIF 03/20/2016 HUGH MCCULLOUGH DO Ot Z79.4 SHOP ESTIMATOR (CURRENT) USE OF INSULIN 03/20/2016 HUGH MCCULLOUGH DO Ot Z79.899 OTHER LONGTERM (CURRENT) DRUG THERAPY 03/20/2016 COLTHARP MAYTE BAEZ A Ot 250.82 DIAB W OTH SPEC MANIFEST, TYPE II OR UNS 03/20/2016 COLTAYLORMAYTE CARDOSO DO Ot 459.81 VENOUS INSUFFICIENCY NOS 03/20/2016 COLARP MAYTE BAEZ Ot 707.19 ULCER OF OTHER PART OF LOWER LIMB 03/20/2016 LY MORALES IT SALES REPRESENTATIVE Ot 553.1 UMBILICAL HERNIA 03/20/2016 LY MORALES IT SALES REPRESENTATIVE Ot 562.10 DIVERTICULOSIS COLON (W/O MENT OF [...] 40.0-44.9, ADULT 03/20/2016 ANNETTE JIMENEZ Ot Z79.4 LONGTERM (CURRENT) USE OF INSULIN 03/20/2016 ANNETTE JIMENEZ Ot Z79.899 OTHER SHOP ESTIMATOR (CURRENT) DRUG THERAPY 03/20/2016 TELMA GRIER MD, [...] ADULT 03/20/2016 FABIÁN POSADA MD, Ot Z79.4 LONGTERM (CURRENT) USE OF INSULIN 03/20/2016 FABIÁN POSADA MD, Ot Z79.899 OTHER SHOP ESTIMATOR (CURRENT) DRUG THERAPY 03/20/2016 FABIÁN POSADA MD [...] SPECIF 03/20/2016 HUGH MCCULLOUGH DO Ot Z79.4 SHOP ESTIMATOR (CURRENT) USE OF INSULIN 03/20/2016 HUGH MCCULLOUGH DO Ot Z79.899 OTHER LONGTERM (CURRENT) DRUG THERAPY 03/24/2016 FABIÁN POSADA MD, Ot C54.1 MALIGNANT NEOPLASM OF ENDOMETRIUM 03/24/2016 FABIÁN POSADA MD, Ot E11.319 TYPE 2 DIABETES W [facility] DIABETIC RTNOP W/ 03/24/2016 FABIÁN POSADA [...] ADULT 03/24/2016 FABIÁN POSADA MD, Ot Z79.4 SHOP ESTIMATOR (CURRENT) USE OF INSULIN 03/24/2016 FABIÁN POSADA MD, Ot Z79.899 OTHER SHOP ESTIMATOR (CURRENT) DRUG THERAPY 04/02/2016 FABIÁN POSADA MD, Ot 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 ENDOMETRIUM 04/02/2016 FABIÁN POSADA MD, Ot E11.319 TYPE 2 DIABETES W [facility] DIABETIC RTNOP W04/02/2016 FABIÁN POSADA MD, [...] ADULT 04/02/2016 FABIÁN POSADA MD, Ot Z79.4 SHOP ESTIMATOR (CURRENT) USE OF INSULIN 04/02/2016 FABIÁN POSADA MD, Ot Z79.899 OTHER LONGTERM (CURRENT) DRUG THERAPY 04/09/2016 HUGH MCCULLOUGH DO [...] SPECIF 04/09/2016 HUGH MCCULLOUGH DO Ot Z79.4 SHOP ESTIMATOR (CURRENT) USE OF INSULIN 04/09/2016 HUGH MCCULLOUGH DO Ot Z79.899 OTHER SHOP ESTIMATOR (CURRENT) DRUG THERAPY 04/10/2016 FABIÁN POSADA MD, [...] ADULT 04/10/2016 FABIÁN POSADA MD Ot Z79.4 LONGTERM (CURRENT) USE OF INSULIN 04/10/2016 FABIÁN POSADA MD, Ot Z79.899 OTHER SHOP ESTIMATOR (CURRENT) DRUG THERAPY 04/10/2016 COLTHMAYTE CARDOSO DO Ot 250.82 DIAB W OTH SPEC MANIFEST, TYPE II OR UNS 04/10/2016 COLMAYTE RICHMOND DO Ot 459.81 VENOUS INSUFFICIENCY NOS 04/10/2016 COLMAYTE RICHMOND DO Ot 707.19 ULCER OF OTHER PART OF LOWER LIMB 04/10/2016 LY MORALES IT SALES REPRESENTATIVE Ot 553.1 UMBILICAL HERNIA 04/10/2016 LY MORALES IT SALES REPRESENTATIVE Ot 562.10 DIVERTICULOSIS COLON (W/O MENT OF [...] 40.0-44.9, ADULT 04/10/2016 ANNETTE JIMENEZP Ot Z79.4 LONGTERM (CURRENT) USE OF INSULIN 04/10/2016 ANNETTE JIMENEZP Ot Z79.899 OTHER SHOP ESTIMATOR (CURRENT) DRUG THERAPY 04/10/2016 TELMA GRIER MD [...] SPECIF 04/10/2016 HUGH MCCULLOUGH DO, Ot Z79.4 LONGTERM (CURRENT) USE OF INSULIN 04/10/2016 HUGH MCCULLOUGH DO, Ot Z79.899 OTHER SHOP ESTIMATOR (CURRENT) DRUG THERAPY 04/10/2016 FABIÁN POSADA MD, [...] ADULT 04/10/2016 FABIÁN POSADA MD, Ot Z79.4 LONGTERM (CURRENT) USE OF INSULIN 04/10/2016 FABIÁN POSADA MD, Ot Z79.899 OTHER SHOP ESTIMATOR (CURRENT) DRUG THERAPY 04/24/2016 KAREN MORALES DO Ot R19.7 DIARRHEA, UNSPECIFIED 05/07/2016 KAREN MORALES DO Ot R19.7 DIARRHEA, UNSPECIFIED 05/07/2016 FABIÁN POSADA MD, Ot C54.1 MALIGNANT NEOPLASM OF ENDOMETRIUM 05/07/2016 FABIÁN POSADA MD, Ot E11.319 [facility]/ 05/07/2016 FABIÁN POSADA [...] ADULT 05/07/2016 FABIÁN POSADA MD Ot Z79.4 LONGTERM (CURRENT) USE OF INSULIN 05/07/2016 FABIÁN POSADA MD, Ot Z79.899 OTHER LONGTERM (CURRENT) DRUG THERAPY 05/07/2016 FABIÁN POSADA MD, Ot C54.1 MALIGNANT NEOPLASM OF ENDOMETRIUM 05/07/2016 FABIÁN POSADA MD Ot E11.319 TYPE 2 DIABETES W [facility] DIABETIC RTNOP W05/07/2016 FABIÁN POSADA MD, [...] ADULT 05/07/2016 FABIÁN POSADA MD, Ot Z79.4 SHOP ESTIMATOR (CURRENT) USE OF INSULIN 05/07/2016 FABIÁN POSADA MD, Ot Z79.899 OTHER SHOP ESTIMATOR (CURRENT) DRUG THERAPY 05/09/2016 KAREN MORALES DO Ot R19.7 DIARRHEA, UNSPECIFIED 05/26/2016 KAREN MORALES DO Ot R19.7 DIARRHEA, UNSPECIFIED 06/10/2016 FABIÁN POSADA MD, Ot C54.1 MALIGNANT NEOPLASM OF ENDOMETRIUM 06/10/2016 FABIÁN POSADA MD, Ot E11.319 TYPE 2 DIABETES W [facility] DIABETIC RTNOP W/ 06/10/2016 FABIÁN POSADA [...] ADULT 06/10/2016 FABIÁN POSADA MD, Ot Z79.4 LONGTERM (CURRENT) USE OF INSULIN 06/10/2016 FABIÁN POSADA MD, Ot Z79.899 OTHER SHOP ESTIMATOR (CURRENT) DRUG THERAPY 06/13/2016 KAREN MORALES DO [...] ADULT 06/23/2016 FABIÁN POSADA MD, Ot Z79.4 SHOP ESTIMATOR (CURRENT) USE OF INSULIN 06/23/2016 FABIÁN POSADA MD, Ot Z79.899 OTHER SHOP ESTIMATOR (CURRENT) DRUG THERAPY 06/23/2016 KAREN MORALES DO Ot R30.0 DYSURIA 07/10/2016 COLYI BAEZ MAYTE A Ot 250.82 DIAB W OTH SPEC MANIFEST, TYPE II OR UNS 07/10/2016 COLYI BAEZ MAYTE A Ot 459.81 VENOUS INSUFFICIENCY NOS 07/10/2016 IZA BAEZ MAYTE A Ot 707.19 ULCER OF OTHER PART OF LOWER LIMB 07/10/2016 LY MORALES IT SALES REPRESENTATIVE Ot 553.1 UMBILICAL HERNIA 07/10/2016 LY MORALES IT SALES REPRESENTATIVE Ot 562.10 DIVERTICULOSIS COLON (W/O MENT OF [...] JIMENEZ Ot E11.319 TYPE 2 DIABETES W [facility] DIABETIC RTNOP W/ 07/10/2016 JIMENEZANNETTE Krueger DEXTER Ot E66.01 MORBID (SEVERE) OBESITY DUE TO EXCESS CA 07/10/2016 ANNETTE JIMENEZ DEXTER Ot 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, DEFINED IN [place] 07/10/2016 JIMENEZANNETTE Krueger DEXTER Ot I10 ESSENTIAL (PRIMARY) HYPERTENSION 07/10/2016 JIMENEZANNETTE Krueger DEXTER Ot Z68.41 BODY MASS INDEX (BMI) 40.0-44.9, ADULT 07/10/2016 JIMENEZANNETTE Krueger DEXTER Ot Z79.4 SHOP ESTIMATOR (CURRENT) USE OF INSULIN 07/10/2016 JIMENEZANNETTE Krueger DEXTER Ot Z79.899 OTHER LONGTERM (CURRENT) DRUG THERAPY 07/10/2016 TELMA GRIER MD, [...] MD Ot E11.319 TYPE 2 DIABETES W [facility] DIABETIC RTNOP W/ 07/10/2016 FABIÁN POSADA [...] ADULT 07/10/2016 FABIÁN POSADA MD Ot Z79.4 LONGTERM (CURRENT) USE OF INSULIN 07/10/2016 FABIÁN POSADA MD, Ot Z79.899 OTHER SHOP ESTIMATOR (CURRENT) DRUG THERAPY 07/10/2016 KAREN MORALES DO [...] ADULT 07/11/2016 FABIÁN POSADA MD, Ot Z79.4 LONGTERM (CURRENT) USE OF INSULIN 07/11/2016 FABIÁN POSADA MD, Ot Z79.899 OTHER SHOP ESTIMATOR (CURRENT) DRUG THERAPY 08/01/2016 FABIÁN POSADA MD, [...] ADULT 08/13/2016 FABIÁN POSADA MD, Ot Z79.4 SHOP ESTIMATOR (CURRENT) USE OF INSULIN 08/13/2016 FABIÁN POSADA MD, Ot Z79.899 OTHER LONGTERM (CURRENT) DRUG THERAPY 09/11/2016 FABIÁN POSADA MD, [...] ADULT 09/11/2016 FABIÁN POSADA MD, Ot Z79.4 LONGTERM (CURRENT) USE OF INSULIN 09/11/2016 FABIÁN POSADA MD, Ot Z79.899 OTHER SHOP ESTIMATOR (CURRENT) DRUG THERAPY 10/08/2016 FABIÁN POSADA MD, [...] ADULT 10/08/2016 FABIÁN POSADA MD Ot Z79.4 LONGTERM (CURRENT) USE OF INSULIN 10/08/2016 FABIÁN POSADA MD, Ot Z79.899 OTHER LONGTERM (CURRENT) DRUG THERAPY 10/09/2016 FABIÁN POSADA MD, [...] ADULT 10/09/2016 FABIÁN POSADA MD, Ot Z79.4 SHOP ESTIMATOR (CURRENT) USE OF INSULIN 10/09/2016 FABIÁN POSADA MD, Ot Z79.899 OTHER LONGTERM (CURRENT) DRUG THERAPY 10/10/2016 FABIÁN POSADA MD, [...] MASS INDEX (BMI) 40.0-44.9, ADULT 10/10/2016 FABIÁN OPSADA MD, Ot Z79.4 SHOP ESTIMATOR (CURRENT) USE OF INSULIN 10/10/2016 FABIÁN POSADA MD, Ot Z79.899 OTHER LONGTERM (CURRENT) DRUG THERAPY 10/14/2016 FABIÁN POSADA MD, [...] ADULT 10/14/2016 FABIÁN POSADA MD, Ot Z79.4 SHOP ESTIMATOR (CURRENT) USE OF INSULIN 10/14/2016 FABIÁN POSADA MD, Ot Z79.899 OTHER LONGTERM (CURRENT) DRUG THERAPY 12/04/2016 FABIÁN POSADA MD, [...] ADULT 12/04/2016 FABIÁN POSADA MD, Ot Z79.4 SHOP ESTIMATOR (CURRENT) USE OF INSULIN 12/04/2016 FABIÁN POSADA MD, Ot Z79.899 OTHER SHOP ESTIMATOR (CURRENT) DRUG THERAPY 01/11/2017 FABIÁN POSADA MD, [...] ADULT 01/11/2017 FABIÁN POSADA MD, Ot Z79.4 LONGTERM (CURRENT) USE OF INSULIN 01/11/2017 FABIÁN POSADA MD, Ot Z79.899 OTHER LONGTERM (CURRENT) DRUG THERAPY 01/12/2017 FABIÁN POSADA MD, Ot C54.1 MALIGNANT NEOPLASM OF ENDOMETRIUM 01/12/2017 FABIÁN POSADA MD, Ot 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 01/12/2017 FABIÁN POSADA MD, Ot E11.319 TYPE [facility]/ 01/12/2017 FABIÁN POSADA [...] ADULT 01/12/2017 FABIÁN POSADA MD, Ot Z79.4 LONGTERM (CURRENT) USE OF INSULIN 01/12/2017 FABIÁN POSADA MD, Ot Z79.899 OTHER SHOP ESTIMATOR (CURRENT) DRUG THERAPY 01/13/2017 FABIÁN POSADA MD, Ot C54.1 MALIGNANT NEOPLASM OF ENDOMETRIUM 01/13/2017 FABIÁN POSADA MD, Ot E11.319 TYPE 2 DIABETES W [facility] DIABETIC RTNOP W/ 01/13/2017 FABIÁN POSADA [...] ADULT 01/13/2017 FABIÁN POSADA MD, Ot Z79.4 LONGTERM (CURRENT) USE OF INSULIN 01/13/2017 FABIÁN POSADA MD, Ot Z79.899 OTHER LONGTERM (CURRENT) DRUG THERAPY 01/14/2017 FABIÁN POSADA MD, [...] ADULT 01/14/2017 FABIÁN POSADA MD, Ot Z79.4 LONGTERM (CURRENT) USE OF INSULIN 01/14/2017 FABIÁN POSADA MD, Ot Z79.899 OTHER LONGTERM (CURRENT) DRUG THERAPY 02/05/2017 COLTHARP MAYTE BAEZ A Ot 250.82 DIAB W OTH SPEC MANIFEST, TYPE II OR UNS 02/05/2017 COLTHMAYTE CARDOSO DO Ot 459.81 VENOUS INSUFFICIENCY NOS 02/05/2017 COLMAYTE CARDOSO DO Ot 707.19 ULCER OF OTHER PART OF LOWER LIMB 02/05/2017 LY MORALES IT SALES REPRESENTATIVE Ot 553.1 UMBILICAL HERNIA 02/05/2017 LY MORALES IT SALES REPRESENTATIVE Ot 562.10 DIVERTICULOSIS COLON (W/O MENT OF [...] JIMENEZ Ot E11.319 TYPE 2 DIABETES W [facility] DIABETIC RTNOP W/ 02/05/2017 ANNETTE JIMENEZ Ot E66.01 MORBID (SEVERE) OBESITY DUE TO EXCESS CA 02/05/2017 ANNETTE JIMENEZP Ot 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, DEFINED IN [place] 02/05/2017 ANNETTE JIMENEZ IT SALES REPRESENTATIVE Ot I10 ESSENTIAL (PRIMARY) HYPERTENSION 02/05/2017 ANNETTE JIMENEZP Ot Z68.41 BODY MASS INDEX (BMI) 40.0-44.9, ADULT 02/05/2017 ANNETTE JIMENEZP Ot Z79.4 LONGTERM (CURRENT) USE OF INSULIN 02/05/2017 ANNETTE JIMENEZ IT SALES REPRESENTATIVE Ot Z79.899 OTHER SHOP ESTIMATOR (CURRENT) DRUG THERAPY 02/05/2017 TELMA GRIER MD, [...] MD Ot E11.319 TYPE 2 DIABETES W [facility] DIABETIC RTNOP W/ 02/05/2017 FABIÁN POSADA [...] ADULT 02/05/2017 FABIÁN POSADA MD, Ot Z79.4 LONGTERM (CURRENT) USE OF INSULIN 02/05/2017 FABIÁN POSADA MD, Ot Z79.899 OTHER LONGTERM (CURRENT) DRUG THERAPY 02/09/2017 FABIÁN POSADA MD, [...] PART OF LOWER LIMB 02/19/2017 LY MORALES IT SALES REPRESENTATIVE Ot 553.1 UMBILICAL HERNIA 02/19/2017 LY MORALES IT SALES REPRESENTATIVE Ot 562.10 DIVERTICULOSIS COLON (W/O MENT OF [...] DEXTER Ot E11.319 TYPE 2 DIABETES W [facility] DIABETIC RTNOP W/ 02/19/2017 JIMENEZANNETTE Krueger DEXTER Ot E66.01 MORBID (SEVERE) OBESITY DUE TO EXCESS CA 02/19/2017 JOHN JIMENEZNENA Krueger DEXTER Ot 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899 OTHER LONGTERM (CURRENT) DRUG THERAPY 02/19/2017 FABIÁN POSADA MD, [...] ADULT 02/21/2017 TELMA GRIER MD, Ot Z79.4 SHOP ESTIMATOR (CURRENT) USE OF INSULIN 02/21/2017 TELMA GRIER [...] ADULT 02/21/2017 KIDO MD, TAKAAKI Ot Z79.4 SHOP ESTIMATOR (CURRENT) USE OF INSULIN 02/21/2017 TELMA GRIER [...] ADULT 02/25/2017 TELMA GRIER MD, Ot Z79.4 LONGTERM (CURRENT) USE OF INSULIN 02/25/2017 TELMA GRIER [...] ADULT 02/27/2017 TELMA GRIER MD, Ot Z79.4 LONGTERM (CURRENT) USE OF INSULIN 02/27/2017 TELMA GRIER [...] ADULT 03/06/2017 FABIÁN POSADA MD, Ot Z79.4 LONGTERM (CURRENT) USE OF INSULIN 03/06/2017 FABIÁN POSADA MD, Ot Z79.899 OTHER SHOP ESTIMATOR (CURRENT) DRUG THERAPY 03/25/2017 YANA HODGSON MD, [...] ADULT 04/12/2017 FABIÁN POSADA MD Ot Z79.4 LONGTERM (CURRENT) USE OF INSULIN 04/12/2017 FABIÁN POSADA MD, Ot Z79.899 OTHER LONGTERM (CURRENT) DRUG THERAPY 04/13/2017 FABIÁN POSADA MD Ot Z12.31 ENCNTR SCREEN MAMMOGRAM FOR MALIGNANT NE 04/13/2017 COLTHARP DO, MAYTE A Ot 250.82 DIAB W OTH SPEC MANIFEST, TYPE II OR UNS 04/13/2017 COLTHARP DO, MAYTE A Ot 459.81 VENOUS INSUFFICIENCY NOS 04/13/2017 COLTHARP DO MAYTE A Ot 707.19 ULCER OF OTHER PART OF LOWER LIMB 04/13/2017 LY MORALES IT SALES REPRESENTATIVE Ot 553.1 UMBILICAL HERNIA 04/13/2017 LY MORALES IT SALES REPRESENTATIVE Ot 562.10 DIVERTICULOSIS COLON (W/O MENT OF [...] 40.0-44.9, ADULT 04/13/2017 ANNETTE JIMENEZ Ot Z79.4 SHOP ESTIMATOR (CURRENT) USE OF INSULIN 04/13/2017 ANNETTE JIMENEZ Ot Z79.899 OTHER SHOP ESTIMATOR (CURRENT) DRUG THERAPY 04/13/2017 TELMA GRIER MD, [...] 40.0-44.9, ADULT 04/13/2017 NII BORDEN Ot Z79.4 SHOP ESTIMATOR (CURRENT) USE OF INSULIN 04/13/2017 NII BORDEN Ot Z79.899 OTHER LONGTERM (CURRENT) DRUG THERAPY 04/13/2017 FABIÁN POSADA MD, [...] ADULT 04/13/2017 FABIÁN POSADA MD Ot Z79.4 SHOP ESTIMATOR (CURRENT) USE OF INSULIN 04/13/2017 ALBINO FREY, FABIÁN Haines Ot Z79.899 OTHER SHOP ESTIMATOR (CURRENT) DRUG THERAPY 04/15/2017 COLTHARP MAYTE Garibay Ot 250.82 DIAB W OTH SPEC MANIFEST, TYPE II OR UNS 04/15/2017 COLYI BAEZ MAYTE Garibay Ot 459.81 VENOUS INSUFFICIENCY NOS 04/15/2017 COLTAYLORARP DO MAYTE Garibay Ot 707.19 ULCER OF OTHER PART OF LOWER LIMB 04/15/2017 LY MORALES IT SALES REPRESENTATIVE Ot 553.1 UMBILICAL HERNIA 04/15/2017 LY MORALES IT SALES REPRESENTATIVE Ot 562.10 DIVERTICULOSIS COLON (W/O MENT OF [...] 40.0-44.9, ADULT 04/15/2017 ANNETTE JIMENEZ Ot Z79.4 SHOP ESTIMATOR (CURRENT) USE OF INSULIN 04/15/2017 ANNETTE JIMENEZ Ot Z79.899 OTHER SHOP ESTIMATOR (CURRENT) DRUG THERAPY 04/15/2017 TELMA GRIER MD [...] OBESITY DUE TO EXCESS CA 04/15/2017 NII OBRDEN Ot 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, DEFINED IN [place] 04/15/2017 NII BORDEN Ot I10 ESSENTIAL (PRIMARY) HYPERTENSION 04/15/2017 NII BORDEN Ot R82.99 OTHER ABNORMAL FINDINGS IN URINE 04/15/2017 NII BORDEN Ot Z68.41 BODY MASS INDEX (BMI) 40.0-44.9, ADULT 04/15/2017 NII BORDEN Ot Z79.4 SHOP ESTIMATOR (CURRENT) USE OF INSULIN 04/15/2017 NII BORDEN Ot Z79.899 OTHER LONGTERM (CURRENT) DRUG THERAPY 04/16/2017 FABIÁN POSADA MD [...] 40.0-44.9, ADULT 04/17/2017 NII BORDEN Ot Z79.4 SHOP ESTIMATOR (CURRENT) USE OF INSULIN 04/17/2017 NII BORDEN Ot Z79.899 OTHER SHOP ESTIMATOR (CURRENT) DRUG THERAPY 04/20/2017 FABIÁN POSADA MD [...] 04/22/2017 TELMA GRIER MD Ot Z79.899 OTHER SHOP ESTIMATOR (CURRENT) DRUG THERAPY 04/22/2017 TELMA GRIER MD [...] 04/28/2017 TELMA GRIER MD, Ot Z79.899 OTHER SHOP ESTIMATOR (CURRENT) DRUG THERAPY 04/28/2017 TELMA GRIER MD, [...] MAMMOGRAM FOR MALIGNANT NE 05/11/2017 ANNETTE JIMENEZ IT SALES REPRESENTATIVE Ot R92.8 OTH ABN AND INCONCLUSIVE FINDINGS ON DX 05/14/2017 ANNETTE JIMENEZ IT SALES REPRESENTATIVE Ot C50.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 05/14/2017 ANNETTE JIMENEZ IT SALES REPRESENTATIVE Ot 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 05/15/2017 ANNETTE JIMENEZ IT SALES REPRESENTATIVE Ot 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 05/15/2017 ANNETTE JIMENEZ IT SALES REPRESENTATIVE Ot N63 UNSPECIFIED LUMP IN BREAST 05/20/2017 ANNETTE JIMENEZ IT SALES REPRESENTATIVE Ot N63 UNSPECIFIED LUMP IN BREAST 05/20/2017 NOBLE STILL FINANCIAL UNDERWRITER Ot K57.30 DVRTCLOS OF LG INT W/O PERFORATION OR AB 05/20/2017 NOBLE STILL FINANCIAL UNDERWRITER Ot K63.89 OTHER SPECIFIED DISEASES OF INTESTINE 05/20/2017 NOBLE STILL FINANCIAL UNDERWRITER Ot Z85.42 PERSONAL HISTORY OF MALIGNANT NEOPLASM O 05/20/2017 NOBLE STILL FINANCIAL UNDERWRITER Ot Z90.49 ACQUIRED ABSENCE OF OTHER SPECIFIED PART 05/20/2017 NOBLE STILL FINANCIAL UNDERWRITER Ot Z90.710 ACQUIRED ABSENCE OF BOTH CERVIX AND UTER 05/25/2017 ANNETTE JIMENEZ IT SALES REPRESENTATIVE Ot C50.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 05/25/2017 ANNETTE JIMENEZ IT SALES REPRESENTATIVE Ot K63.9 DISEASE OF INTESTINE, UNSPECIFIED 05/29/2017 SANDRA FREY, LEILA Ot R92.8 OTH ABN AND INCONCLUSIVE FINDINGS ON DX 06/05/2017 ANNETTE JIMENEZ IT SALES REPRESENTATIVE Ot N63 UNSPECIFIED LUMP IN BREAST 06/10/2017 ANNETTE JIMENEZ IT SALES REPRESENTATIVE Ot C50.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 06/10/2017 ANNETTE JIMENEZ IT SALES REPRESENTATIVE Ot K63.9 DISEASE OF INTESTINE, UNSPECIFIED 06/13/2017 [...] ADULT 06/13/2017 SUHASELVIN ORTEZFERMIN Kaur Ot Z79.4 LONGTERM (CURRENT) USE OF INSULIN 06/13/2017 NII BORDEN N Ot Z79.899 OTHER SHOP ESTIMATOR (CURRENT) DRUG THERAPY 06/18/2017 SUHA NII N [...] 40.0-44.9, ADULT 06/18/2017 NII BORDEN Ot Z79.4 LONGTERM (CURRENT) USE OF INSULIN 06/18/2017 NII BORDEN Ot Z79.899 OTHER LONGTERM (CURRENT) DRUG THERAPY 06/26/2017 KAREN MORALES DO [...] Ot R13.14 DYSPHAGIA, PHARYNGOESOPHAGEAL PHASE 06/29/2017 MAYTE COCUH DO Ot 250.82 DIAB W OTH SPEC MANIFEST, TYPE II OR UNS 06/29/2017 MAYTE COUCH DO Ot 459.81 VENOUS INSUFFICIENCY NOS 06/29/2017 MAYTE COUCH DO Ot 707.19 ULCER OF OTHER PART OF LOWER LIMB 06/29/2017 LY MORALES IT SALES REPRESENTATIVE Ot 553.1 UMBILICAL HERNIA 06/29/2017 LY MORALES IT SALES REPRESENTATIVE Ot 562.10 DIVERTICULOSIS COLON (W/O MENT OF HEMORR 06/29/2017 YANA BYRNES DO Ot 625.8 FEM GENITAL SYMPTOMS NEC 06/29/2017 YANA BYRNES DO Ot 627.1 POSTMENOPAUSAL BLEEDING 06/29/2017 ALBINO FREY, FABIÁN Haines Ot 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 06/29/2017 ALBINO FREY, FABIÁN Haines Ot C54.1 MALIGNANT NEOPLASM OF ENDOMETRIUM 06/29/2017 ANNETTE JIMENEZ IT SALES REPRESENTATIVE Ot C54.1 MALIGNANT NEOPLASM OF ENDOMETRIUM 06/29/2017 ANNETTE JIMENEZ IT SALES REPRESENTATIVE Ot E11.319 TYPE 2 DIABETES W UNSP DIABETIC RTNOP W/ 06/29/2017 ANNETTE JIMENEZ IT SALES REPRESENTATIVE Ot E66.01 MORBID (SEVERE) OBESITY DUE TO EXCESS CA 06/29/2017 ANNETTE JIMENEZ IT SALES REPRESENTATIVE Ot 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, [place]ED [place] 06/29/2017 ANNETTE JIMENEZ IT SALES REPRESENTATIVE Ot I10 ESSENTIAL (PRIMARY) HYPERTENSION 06/29/2017 ANNETTE JIMENEZ IT SALES REPRESENTATIVE Ot Z68.41 BODY MASS INDEX (BMI) 40.0-44.9, ADULT 06/29/2017 ANNETTE JIMENEZP Ot Z79.4 SHOP ESTIMATOR (CURRENT) USE OF INSULIN 06/29/2017 ANNETTE JIMENEZP Ot Z79.899 OTHER LONGTERM (CURRENT) DRUG THERAPY 06/29/2017 TELMA GRIER MD, [...] SCREEN MAMMOGRAM FOR MALIGNANT NE 06/29/2017 CHEKONOBLE FINANCIAL UNDERWRITER Ot K57.30 DVRTCLOS OF LG INT W/O PERFORATION OR AB 06/29/2017 CHEKOCRISTYIN L FINANCIAL UNDERWRITER Ot K63.89 OTHER SPECIFIED DISEASES OF INTESTINE 06/29/2017 CHEKOCRISTYIN L FINANCIAL UNDERWRITER Ot Z85.42 PERSONAL HISTORY OF MALIGNANT NEOPLASM O 06/29/2017 CHEKOCRISTYIN L FINANCIAL UNDERWRITER Ot Z90.49 ACQUIRED ABSENCE OF OTHER SPECIFIED PART 06/29/2017 CHEKOCRISTYIN L FINANCIAL UNDERWRITER Ot Z90.710 ACQUIRED ABSENCE OF BOTH CERVIX AND UTER 06/29/2017 SANDRA FREY, LEILA Ot R92.8 OTH ABN AND INCONCLUSIVE FINDINGS ON DX 06/29/2017 ANNETTE JIMENEZ IT SALES REPRESENTATIVE Ot N63 UNSPECIFIED LUMP IN BREAST 06/29/2017 ANNETTE JIMENEZ IT SALES REPRESENTATIVE Ot C50.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 06/29/2017 ANNETTE JIMENEZ IT SALES REPRESENTATIVE Ot K63.9 DISEASE OF INTESTINE, UNSPECIFIED 06/29/2017 ANNETTE JIMENEZ IT SALES REPRESENTATIVE Ot 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 06/29/2017 ANNETTE JIMENEZ IT SALES REPRESENTATIVE Ot C54.1 MALIGNANT NEOPLASM OF ENDOMETRIUM 06/29/2017 ANNETTE JIMENEZ IT SALES REPRESENTATIVE Ot Z78.0 ASYMPTOMATIC MENOPAUSAL STATE 06/29/2017 NII [...] ADULT 06/29/2017 NII BORDEN Natasha Ot Z79.4 SHOP ESTIMATOR (CURRENT) USE OF INSULIN 06/29/2017 SUHA NII Kaur Ot Z79.899 OTHER LONGTERM (CURRENT) DRUG THERAPY 06/29/2017 KAREN MORALES DO Ot R13.14 DYSPHAGIA, PHARYNGOESOPHAGEAL PHASE 07/16/2017 ANNETTE JIMENEZP Ot 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 07/16/2017 ANNETTE JIMENEZ IT SALES REPRESENTATIVE Ot C54.1 MALIGNANT NEOPLASM OF ENDOMETRIUM 07/16/2017 [...] ADULT 08/24/2017 RICHMOND PADILLA MD Ot Z79.4 LONGTERM (CURRENT) USE OF INSULIN 08/24/2017 RICHMOND PADILLA MD Ot Z79.899 OTHER LONGTERM (CURRENT) DRUG THERAPY 08/24/2017 RICHMOND PADILLA MD [...] ADULT 10/06/2017 RICHMOND PADILLA MD Ot Z79.4 LONGTERM (CURRENT) USE OF INSULIN 10/06/2017 RICHMOND PADILLA MD Ot Z79.899 OTHER LONGTERM (CURRENT) DRUG THERAPY 10/06/2017 RICHMOND PADILLA MD [...] ADULT 11/19/2017 RICHMOND PADILLA MD Ot Z79.4 SHOP ESTIMATOR (CURRENT) USE OF INSULIN 11/19/2017 RICHMOND PADILLA MD Ot Z79.899 OTHER LONGTERM (CURRENT) DRUG THERAPY 11/19/2017 RICHMOND PADILLA MD [...] ADULT 11/20/2017 RICHMOND PADILLA MD Ot Z79.4 LONGTERM (CURRENT) USE OF INSULIN 11/20/2017 RICHMOND PADILLA MD Ot Z79.899 OTHER SHOP ESTIMATOR (CURRENT) DRUG THERAPY 11/20/2017 RICHMOND PADILLA MD [...] NEOPLM OF UPPER-OUTER QUADRANT OF 11/27/2017 TELMA RGIER MD, Ot C54.1 MALIGNANT NEOPLASM OF ENDOMETRIUM [...] [ER+] 11/27/2017 TELMA GRIER MD, Ot Z79.4 LONGTERM (CURRENT) USE OF INSULIN 11/27/2017 TELMA GRIER MD Ot Z79.899 OTHER LONGTERM (CURRENT) DRUG THERAPY 11/27/2017 TELMA GRIER MD, [...] [ER+] 11/30/2017 TELMA GRIER MD, Ot Z79.4 SHOP ESTIMATOR (CURRENT) USE OF INSULIN 11/30/2017 TELMA GRIER MD, Ot Z79.899 OTHER SHOP ESTIMATOR (CURRENT) DRUG THERAPY 11/30/2017 TELMA GRIER MD, [...] ADULT 12/09/2017 RICHMOND PADILLA MD Ot Z79.4 LONGTERM (CURRENT) USE OF INSULIN 12/09/2017 RICHMOND PADILLA MD Ot Z79.899 OTHER SHOP ESTIMATOR (CURRENT) DRUG THERAPY 12/09/2017 RICHMOND PADILLA MD [...] ADULT 12/11/2017 RICHMOND PADILLA MD, Ot Z79.4 SHOP ESTIMATOR (CURRENT) USE OF INSULIN 12/11/2017 RICHMOND PADILLA MD, Ot Z79.899 OTHER SHOP ESTIMATOR (CURRENT) DRUG THERAPY 12/11/2017 RICHMOND PADILLA MD, [...] [ER+] 12/15/2017 TELMA GRIER MD, Ot Z79.4 SHOP ESTIMATOR (CURRENT) USE OF INSULIN 12/15/2017 TELMA GRIER MD, Ot Z79.899 OTHER SHOP ESTIMATOR (CURRENT) DRUG THERAPY 12/15/2017 TELMA GRIER MD, [...] ADULT 01/06/2018 RICHMOND PADILLA MD, Ot Z79.4 LONGTERM (CURRENT) USE OF INSULIN 01/06/2018 RICHMOND PADILLA MD, Ot Z79.899 OTHER LONGTERM (CURRENT) DRUG THERAPY 01/06/2018 RICHMOND PADILLA MD, [...] ADULT 02/18/2018 RICHMOND PADILLA MD, Ot Z79.4 SHOP ESTIMATOR (CURRENT) USE OF INSULIN 02/18/2018 RICHMOND PADILLA MD, Ot Z79.899 OTHER LONGTERM (CURRENT) DRUG THERAPY 02/18/2018 RICHMOND PADILLA MD, [...] ADULT 03/10/2018 RICHMOND PADILLA MD, Ot Z79.4 LONGTERM (CURRENT) USE OF INSULIN 03/10/2018 RICHMOND PADILLA MD, Ot Z79.899 OTHER SHOP ESTIMATOR (CURRENT) DRUG THERAPY 03/10/2018 RICHMOND PADILLA MD, [...] ADULT 03/11/2018 RICHMOND PADILLA MD Ot Z79.4 LONGTERM (CURRENT) USE OF INSULIN 03/11/2018 RICHMOND PADILLA MD Ot Z79.899 OTHER LONGTERM (CURRENT) DRUG THERAPY 03/11/2018 RICHMOND PADILLA MD [...] ADULT 03/19/2018 RICHMOND PADILLA MD Ot Z79.4 LONGTERM (CURRENT) USE OF INSULIN 03/19/2018 RICHMOND PADILLA MD Ot Z79.899 OTHER LONGTERM (CURRENT) DRUG THERAPY 03/19/2018 RICHMOND PADILLA MD [...] ADULT 05/04/2018 RICHMOND PADILLA MD Ot Z79.4 LONGTERM (CURRENT) USE OF INSULIN 05/04/2018 RICHMOND PADILLA MD, Ot Z79.899 OTHER LONGTERM (CURRENT) DRUG THERAPY 05/04/2018 RICHMOND PADILLA MD [...] INITIAL 05/28/2018 LESIA MERAZ MD Ot Y92.[address] [facility] [address] [facility]IVATE 05/28/2018 LESIA MERAZ MD, Ot Z68.35 BODY MASS INDEX (BMI) 35.0-35.9, ADULT 05/28/2018 LESIA MERAZ MD Ot Z79.4 LONGTERM (CURRENT) USE OF INSULIN 05/28/2018 LESIA MERAZ [...] MERAZ MD Ot Y92.[address] IN [facility] (PRIVATE 05/31/2018 LESIA MERAZ MD, Ot Z68.35 BODY MASS INDEX (BMI) 35.0-35.9, ADULT 05/31/2018 LESIA MERAZ MD, Ot Z79.4 SHOP ESTIMATOR (CURRENT) USE OF INSULIN 05/31/2018 LESIA MERAZ [...] ADULT 06/16/2018 RICHMOND PADILLA MD Ot Z79.4 LONGTERM (CURRENT) USE OF INSULIN 06/16/2018 RICHMOND PADILLA MD Ot Z79.899 OTHER LONGTERM (CURRENT) DRUG THERAPY 06/16/2018 RICHMOND PADILLA MD Ot Z90.710 ACQUIRED ABSENCE OF BOTH CERVIX AND UTER 06/16/2018 [facility] Ot 250.82 DIAB W OTH SPEC MANIFEST, TYPE II OR UNS 06/16/2018 [facility] MAYTE BAEZ A Ot 459.81 VENOUS INSUFFICIENCY NOS 06/16/2018 [facility] MAYTE BAEZ A Ot 707.19 ULCER OF OTHER PART OF LOWER LIMB 06/16/2018 LY MORALES IT SALES REPRESENTATIVE Ot 553.1 UMBILICAL HERNIA 06/16/2018 LY MORALES IT SALES REPRESENTATIVE Ot 562.10 DIVERTICULOSIS COLON (W/O MENT OF HEMORR 06/16/2018 YANA BYRNES DO Ot 625.8 FEM GENITAL SYMPTOMS NEC 06/16/2018 YANA BYRNES DO Ot 627.1 POSTMENOPAUSAL BLEEDING 06/16/2018 FABIÁN POSADA MD Ot 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 06/16/2018 FABIÁN POSADA MD Ot C54.1 MALIGNANT NEOPLASM OF ENDOMETRIUM 06/16/2018 JIMENEZANNETTE Krueger DEXTER Ot C54.1 MALIGNANT NEOPLASM OF ENDOMETRIUM 06/16/2018 JIMENEZANNETTE Krueger IT SALES REPRESENTATIVE Ot E11.319 TYPE 2 DIABETES W UNSP DIABETIC RTNOP W/ 06/16/2018 ANNETTE JIMENEZ IT SALES REPRESENTATIVE Ot E66.01 MORBID (SEVERE) OBESITY DUE TO EXCESS CA 06/16/2018 ANNETTE JIMENEZ IT SALES REPRESENTATIVE Ot 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, DEFINED IN [place] 06/16/2018 JOHN JIMENEZNENA Krueger IT SALES REPRESENTATIVE Ot I10 ESSENTIAL (PRIMARY) HYPERTENSION 06/16/2018 TONY ANNETTE Krueger IT SALES REPRESENTATIVE Ot Z68.41 BODY MASS INDEX (BMI) 40.0-44.9, ADULT 06/16/2018 TONY ANNETTE Krueger IT SALES REPRESENTATIVE Ot Z79.4 SHOP ESTIMATOR (CURRENT) USE OF INSULIN 06/16/2018 TONY ANNETTE Krueger IT SALES REPRESENTATIVE Ot Z79.899 OTHER SHOP ESTIMATOR (CURRENT) DRUG THERAPY 06/16/2018 TELMA GRIER MD, [...] MAMMOGRAM FOR MALIGNANT NE 06/16/2018 CHEKONOBLE L FINANCIAL UNDERWRITER Ot K57.30 DVRTCLOS OF LG INT W/O PERFORATION OR AB 06/16/2018 CHEKOCRISTYIN L FINANCIAL UNDERWRITER Ot K63.89 OTHER SPECIFIED DISEASES OF INTESTINE 06/16/2018 CHEKOCRISTY RAOIN L FINANCIAL UNDERWRITER Ot Z85.42 PERSONAL HISTORY OF MALIGNANT NEOPLASM O 06/16/2018 CHEKOCRISTY RAOIN L FINANCIAL UNDERWRITER Ot Z90.49 ACQUIRED ABSENCE OF OTHER SPECIFIED PART 06/16/2018 CHEKOCRISTYIN L FINANCIAL UNDERWRITER Ot Z90.710 ACQUIRED ABSENCE OF BOTH CERVIX AND UTER 06/16/2018 SANDRA FREY, LEILA Ot R92.8 OTH ABN AND INCONCLUSIVE FINDINGS ON DX 06/16/2018 ANNETTE JIMENEZ IT SALES REPRESENTATIVE Ot N63 UNSPECIFIED LUMP IN BREAST 06/16/2018 ANNETTE JIMENEZ IT SALES REPRESENTATIVE Ot C50.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 06/16/2018 ANNETTE JIMENEZ IT SALES REPRESENTATIVE Ot K63.9 DISEASE OF INTESTINE, UNSPECIFIED 06/16/2018 ANNETTE JIMENEZ IT SALES REPRESENTATIVE Ot 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 06/16/2018 ANNETTE JIMENEZ IT SALES REPRESENTATIVE Ot C54.1 MALIGNANT NEOPLASM OF ENDOMETRIUM 06/16/2018 ANNETTE JIMENEZ IT SALES REPRESENTATIVE Ot Z78.0 ASYMPTOMATIC MENOPAUSAL STATE 06/16/2018 KAREN MORALES DO Ot R13.14 DYSPHAGIA, PHARYNGOESOPHAGEAL PHASE 06/16/2018 RICHMOND PADILLA MD Ot 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 06/16/2018 RICHMOND PADILLA MD Ot 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 06/16/2018 JOSE ARMANDO RFEY FACC, ALI FACP CCDS Ot C50.411 MALIG [...] ADULT 08/09/2018 RICHMOND PADILLA MD, Ot Z79.4 LONGTERM (CURRENT) USE OF INSULIN 08/09/2018 RICHMOND PADILLA MD, Ot Z79.899 OTHER SHOP ESTIMATOR (CURRENT) DRUG THERAPY 08/09/2018 RICHMOND PADILLA MD, [...] ADULT 09/10/2018 LIBORIO FELDMAN DO Ot Z79.4 LONGTERM (CURRENT) USE OF INSULIN 09/10/2018 LIBORIO FELDMAN [...] ADULT 09/14/2018 RICHMOND PADILLA MD Ot Z79.4 SHOP ESTIMATOR (CURRENT) USE OF INSULIN 09/14/2018 RICHMOND PADILLA MD Ot Z79.899 OTHER SHOP ESTIMATOR (CURRENT) DRUG THERAPY 09/14/2018 RICHMOND PADILLA MD [...] ADULT 09/15/2018 RICHMOND PADILLA MD Ot Z79.4 SHOP ESTIMATOR (CURRENT) USE OF INSULIN 09/15/2018 RICHMOND PADILLA MD Ot Z79.899 OTHER SHOP ESTIMATOR (CURRENT) DRUG THERAPY 09/15/2018 RICHMOND PADILLA MD [...] ADULT 09/20/2018 RICHMOND PADILLA MD, Ot Z79.4 LONGTERM (CURRENT) USE OF INSULIN 09/20/2018 RICHMOND PADILLA MD, Ot Z79.899 OTHER SHOP ESTIMATOR (CURRENT) DRUG THERAPY 09/20/2018 RICHMOND PADILLA MD, Ot Z90.710 ACQUIRED ABSENCE OF BOTH CERVIX AND UTER Procedures There is no data. Results Test Result Range Bacterial urine culture - 04/17/16 15:25 Bacterial urine culture [id number] NRG COLONY COUNT >100,000/ML NRG FTX;REPORTABLE SENSITIVITY [...] measurement by glucometer (mass/volume) 77 mg/dL 70-110 [id number] - 04/29/17 10:39 Serum or plasma urea [...] culture - 05/07/17 12:00 Bacterial urine culture [id number] NR COLONY COUNT >100,000/ML NR FTX;REPORTABLE SENSITIVITY REPORTED 05/09/17 11:00 [facility] Bacterial susceptibility panel - 05/07/17 12:00 Gentamicin susceptibility test by minimum inhibitory concentration < = NR Trimethoprim/sulfamethoxazole susceptibility test by minimum inhibitoryconcentration >= NR Ampicillin susceptibility test by minimum inhibitory concentration > = NR Tobramycin susceptibility test by minimum inhibitory concentration < = NR Cefazolin susceptibility test by minimum inhibitory concentration S [facility] Ceftriaxone susceptibility test by minimum inhibitory concentration S [facility] Ampicillin/sulbactam susceptibility test by minimum inhibitory concentration <= NR Piperacillin/tazobactam susceptibility test by minimum inhibitory concentration <= NR Ciprofloxacin susceptibility test by minimum inhibitory concentration <= NR Meropenem susceptibility test by minimum inhibitory concentration < = NR Nitrofurantoin susceptibility test by minimum inhibitory concentration R [facility] Aztreonam susceptibility test by minimum inhibitory concentration S [facility] Bacterial urine culture - 05/26/17 [...] culture - 11/19/17 14:55 Bacterial urine culture [id number] NRG COLONY COUNT >100,000/ML NRG FTX;REPORTABLE SENSITIVITY [...] culture - 05/28/18 08:00 Bacterial urine culture [id number] NR COLONY COUNT >100,000/ML NR FTX;REPORTABLE [facility] SENT SENSITIVITY REPORT 05/30 09:05 [facility] RML Sensitivity Panel - 05/28/18 [...] culture - 09/06/18 14:54 Bacterial urine culture [id number] NRG COLONY COUNT >100,000/ML NRG FTX;REPORTABLE ID [...] Status Pt. Type Provider Facility Loc./Unit Complaint [id number] 09/17/2018 01:59:00 09/17/2018 23:59:59 CLS Outpatient RICHMOND PADILLA MD Via [facility] ONC [id number] 08/18/2018 15:20:00 09/14/2018 00:01:00 DIS Outpatient RICHMOND PADILLA MD [facility] ONC [id number] 09/06/2018 16:36:00 09/10/2018 15:15:00 DIS Inpatient LIBORIO FELDMAN DO Via [facility] 4TH HYPONATREMIA,UTI [id number] 06/22/2018 11:17:00 06/22/2018 23:59:59 CLS Outpatient RICHMOND PADILLA MD [facility] RAD MEMORY LOSS [id number] 05/04/2018 13:15:00 06/16/2018 13:45:00 DIS Outpatient RICHMOND PADILLA MD [facility] ONC [id number] 05/28/2018 07:52:00 05/28/2018 11:15:00 DIS Emergency LESIA MERAZ MD Via [facility] ER FALL;R SIDE PAIN;NECK PAIN [id number] 05/27/2018 16:02:00 05/27/2018 23:59:59 CLS Preadmit RICHMOND PADILLA MD [facility] RAD R41.3 MEMORY LOSS [id number] 03/18/2018 14:10:00 03/18/2018 23:59:59 CLS Preadmit RICHMOND PADILLA MD [facility] RAD MEMORY LOSS [id number] 02/18/2018 16:39:00 03/10/2018 00:01:00 DIS Outpatient RICHMOND PADILLA MD [facility] ONC [id number] 01/18/2018 13:33:00 01/18/2018 23:59:59 CLS Outpatient YANA HODGSON MD [facility] WOUNDCARE [id number] 01/04/2018 14:03:00 01/04/2018 23:59:59 CLS Outpatient YANA HODGSON MD [facility] WOUNDCARE [id number] 12/28/2017 12:18:00 12/28/2017 23:59:59 CLS Outpatient YANA HODGSON MD [facility] WOUNDCARE [id number] 11/27/2017 11:35:00 11/27/2017 15:35:00 DIS Outpatient TELMA GRIER MD [facility] ENDO HX OF COLON MASS [id number] 11/24/2017 06:33:00 11/24/2017 12:47:00 DIS Outpatient TELMA GRIER MD [facility] PREOP COLONOSCOPY [id number] 11/19/2017 13:56:00 11/19/2017 00:01:00 DIS Outpatient RICHMOND PADILLA MD [facility] ONC [id number] 10/07/2017 13:21:00 10/07/2017 23:59:59 CLS Outpatient JOSE ARMANDO FREY FACC, ALI FACP CCDS [facility] CARD R06.02 SHORTNESS OF BREATH [id number] 10/06/2017 08:21:00 10/06/2017 23:59:59 CLS Outpatient JOSE ARMANDO FREY FACC, NOEMI FACVaishali CCDS [facility] CARD R06.02 SHORTNESS OF BREATH [id number] 09/16/2017 08:54:00 09/16/2017 23:59:59 CLS Outpatient RICHMOND PADILLA MD [facility] RAD 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 [id number] 08/14/2017 12:36:00 08/20/2017 14:30:00 DIS Outpatient NII BORDEN [facility] ONC [id number] 08/19/2017 09:08:00 08/19/2017 23:59:59 CLS Outpatient RICHMOND PADILLA MD [facility] RAD 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 [id number] 06/29/2017 10:04:00 06/29/2017 23:59:59 CLS Outpatient KAREN MORALES DO [facility] RAD DYSPHAGIA TO SOLIDS R13.10 [id number] 06/25/2017 09:57:00 06/25/2017 23:59:59 CLS Outpatient ANNETTE JIMENEZ [facility] RAD Z78.0 [id number] 05/26/2017 15:31:00 06/13/2017 00:01:00 DIS Outpatient NII BORDEN [facility] ONC [id number] 05/19/2017 10:17:00 05/19/2017 23:59:59 CLS Outpatient ANNETTE JIMENEZ [facility] 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 [id number] 05/11/2017 12:49:00 05/11/2017 23:59:59 CLS Outpatient JIMENEZ ANNETTE Pati RENTERIA [facility] RAD R92.8 [id number] 05/06/2017 10:36:00 05/06/2017 23:59:59 CLS Outpatient LEILA FLORES MD [facility] RAD R92.8 [id number] 04/29/2017 10:17:00 04/29/2017 23:59:59 CLS Outpatient NOBLE STILL APRN [facility] RAD SIGMOID MASS, DIVERTICULOSIS [id number] 04/22/2017 11:00:00 04/22/2017 16:00:00 DIS Outpatient TELMA GRIER MD [facility] ENDO ANEMIA CHANGE BOWEL HABITS HX OF BLACK TARRY STOOL [id number] 04/21/2017 13:19:00 04/21/2017 13:27:00 DIS Outpatient TELMA GRIER MD [facility] PREOP ANEMIA CHANGE BOWEL HABITS HX BLACK TARRY STOOL [id number] 04/16/2017 11:30:00 04/16/2017 23:59:59 CLS Preadmit FABIÁN POSADA MD [facility] RAD SCREENING [id number] 04/16/2017 11:17:00 04/16/2017 23:59:59 CLS Outpatient FABIÁN POSADA MD [facility] RAD R63.4 ABNORMAL WEIGHT LOSS SCREENING [id number] 04/09/2017 13:34:00 04/09/2017 23:59:59 CLS Outpatient FABIÁN POSADA MD [facility] ONC [id number] 03/25/2017 12:40:00 03/25/2017 16:00:00 DIS Outpatient YANA HODGSON MD [facility] WOUNDCARE [id number] 02/19/2017 17:25:00 02/21/2017 12:57:00 DIS Outpatient TELMA GRIER MD [facility] SDC R THORACIC RADICULOPATHY [id number] 02/05/2017 12:16:00 02/05/2017 23:59:59 CLS Outpatient FABIÁN POSADA MD [facility] RAD C54.1 [id number] 01/05/2017 13:07:00 01/11/2017 00:01:00 DIS Outpatient FABIÁN POSADA MD [facility] ONC [id number] 08/28/2016 12:55:00 10/08/2016 00:01:00 DIS Outpatient FABIÁN POSADA MD [facility] ONC [id number] 07/10/2016 09:13:00 07/10/2016 23:59:59 CLS Outpatient FABIÁN POSADA MD [facility] RAD UTERINE CA [id number] 04/17/2016 13:49:00 06/23/2016 10:30:00 DIS Outpatient FABIÁN POSADA MD [facility] ONC [id number] 06/12/2016 11:57:00 06/12/2016 23:59:59 CLS Outpatient KAREN MORALES DO [facility] DYSURIA, POSSIBLE UTI [id number] 04/23/2016 16:55:00 04/23/2016 23:59:59 CLS Outpatient KAREN MORALES DO [facility] POSSIBLE C DIFF, DIARRHEA [id number] 03/20/2016 10:27:00 04/02/2016 00:01:00 DIS Outpatient FABIÁN POSADA MD [facility] ONC [id number] 03/17/2016 11:38:00 03/17/2016 15:24:00 DIS Emergency JAMEL HUGH BAEZ [facility] ER DIZZINESS [id number] 01/15/2016 12:02:00 01/15/2016 23:59:59 CLS Outpatient FABIÁN POSADA MD [facility] RAD UTERINE CANCER [id number] 01/10/2016 11:44:00 01/10/2016 23:59:59 CLS Outpatient FABIÁN POSADA MD [facility] RAD [id number] 01/09/2016 12:25:00 01/09/2016 15:00:00 DIS Outpatient YANA HODGSON MD [facility] WOUNDCARE [id number] 12/27/2015 09:54:00 12/30/2015 00:01:00 DIS Outpatient FABIÁN POSADA MD [facility] ONC [id number] 10/31/2015 12:55:00 10/31/2015 23:59:59 CLS Outpatient KAREN MORALES DO [facility] RAD EDEMA LEFT LEG [id number] 10/11/2015 06:16:00 10/11/2015 23:59:59 CLS Outpatient TELMA GRIER MD [facility] SDC ENDOMETRIAL CANCER [id number] 10/10/2015 13:30:00 10/10/2015 23:59:59 CLS Outpatient FABIÁN POSADA MD [facility] RAD ENDOMETRIAL CA [id number] 10/09/2015 10:57:00 10/09/2015 23:59:59 CLS Outpatient TELMA GRIER MD [facility] PREOP PORT PLACEMENT [id number] 10/04/2015 10:58:00 10/04/2015 23:59:59 CLS Outpatient ANNETTE JIMENEZ [facility] ONC [id number] 08/24/2015 12:26:00 09/12/2015 00:01:00 DIS Outpatient FABIÁN POSADA MD [facility] ONC [id number] 08/02/2015 21:58:00 08/06/2015 13:45:00 DIS Inpatient KAREN MORALES DO [facility] 4TH UTI,INTRACTABLE PAIN OF BUTTOCK,R/T RADIATION BURN [id number] 06/13/2015 12:33:00 06/13/2015 00:01:00 DIS Outpatient FABIÁN POSDAA MD [facility] ONC [id number] 05/29/2015 10:34:00 05/29/2015 23:59:59 CLS Outpatient FABIÁN POSADA MD [facility] RAD ENDOMETRIAL CA [id number] 05/16/2015 12:32:00 05/25/2015 12:00:00 DIS Outpatient COLTHMAYTE CARDOSO DO Via [facility] WOUNDCARE [id number] 04/23/2015 13:56:00 04/23/2015 23:59:59 CLS Outpatient YANA BYRNES DO [facility] RAD POST MENOPAUSAL BLEEDING WITH MASS [id number] 04/13/2015 12:24:00 04/13/2015 23:59:59 CLS Outpatient LY MORALES [facility] RAD VAG BLEEDING [id number] 03/28/2015 12:02:00 03/28/2015 23:59:59 CLS Outpatient COLTHARP MAYTE BAEZ A [facility] RAD ULCER,DM,VENOUS INSUFFICIENCY [id number] 12/17/2014 07:48:00 12/17/2014 10:14:00 DIS Emergency VIRGILIO FREY, SANTIAGO Berkowitz [facility] ER CONGESTION [id number] 10/01/2018 17:48:00 ACT Inpatient EMERITA FREY, ANGELINE Simms Via [address] CHANGE IN MENTATION;POSSIBLE ASPERATION [id number] 10/05/2014 13:17:34 10/05/2014 13:17:34 DIS Outpatient [id number] 03/05/2015 17:16:57 Document Registration [id number] 03/05/2015 17:16:54 Document Registration [id number] 03/05/2015 17:16:50 Document Registration [id number] 03/05/2015 17:16:46 Document Registration [id number] 02/19/2015 14:34:20 Document Registration [id number] 02/19/2015 14:34:17 Document Registration [id number] 02/19/2015 14:34:13 Document Registration [id number] 02/19/2015 14:34:10 Document Registration [id number] 02/19/2015 14:34:05 Document Registration [id number] 02/19/2015 14:33:50 Document Registration [id number] 02/19/2015 14:33:45 Document Registration [id number] 08/07/2014 15:17:00 Document Registration [id number] 05/23/2014 18:42:00 Document Registration [email or web address] 06/25/2015 14:01:15 ACT Document Registration
[2018-10-01 20:44] VITALS: BP 151/70
[2018-10-01] MEDS: NS IV 1000 ML 1,000 ML IV SCH (21:09)
[2018-10-02] VITALS (7 sets, daily range): BP systolic 141–167; BP diastolic 68–78
[2018-10-02] MEDS ORDERED: HALOPERIDOL 5 MG/ML (HALDOL) AMP ONE ×2 (01:36→05:25)
[2018-10-02] MEDS ORDERED: HALOPERIDOL 5 MG/ML (HALDOL) AMP IM ONE ×2 (02:00→05:30)
--- NOTE | 2018-10-02 02:29 | NUR ---
0130-WALKED INTO PTS ROOM, SHE HAD PULLED OUT HER IV IN HER ARM, TAKEN HER GOWN COMPLETELY OFF AND THREW IT IN THE FLOOR, TOOK THE PERIWIC OUT AND THREW IT ON THE FLOOR ALSO. PT WAS TRYING TO GET OUT OF BED AT THIS POINT. I TRIED CONSOLING PT BUT SHE STARTED YELLING AT ME "GET ME OUT OF THIS DAMN THING, PUT THIS THING DOWN". ANOTHER NURSE JOINED TO HELP CONSOLE THE PT SHE TRIED HITTING THE RN AND YELLED "IM GOING TO CHOKE YOU TO ". AT THIS POINT PT SCREAMING LOUDLY TO LEAVE HER ALONE AND LET HER OUT OF THE BED. ATTEMPTED TO EDUCATED PT ON LETTING US PUT ANOTHER IV IN BUT PT KEPT SWATTING AT US TELLING US TO LEAVE HER ALONE. 0136- SPOKE WITH DR. FELDER AND INFORMED HER OF PTS CONDITION. TELEPHONE ORDERS RECEIVED FOR 2MG IM HALDOL 1X DOSE AND IF UNSUCCESSFUL WITH FIRST DOSE TO ADMINISTER ANOTHER 2MG IM HALDOL 1X DOSE. 0142- 2MG IM HALDOL GIVEN IN RIGHT UPPER THIGH. 0150- PT ABLE TO CALM DOWN ENOUGH TO INSERT IV IN RIGHT FOREARM. 0155- PRN 0.5MG ATIVAN IV GIVEN. 0230- PT RESTING COMFORTABLY AT THIS TIME. WILL CONTINUE TO MONITOR.
[2018-10-02] MEDS ORDERED: GABA-486 PO (03:03)
[2018-10-02] MEDS ORDERED: MAGN400T6 PO (03:03)
[2018-10-02] MEDS ORDERED: ACET325T49 PO (03:03)
[2018-10-02] MEDS ORDERED: LACT1CAP39 PO (03:03)
[2018-10-02] MEDS ORDERED: NF-SOLIF5T PO (03:03)
[2018-10-02] MEDS ORDERED: ALPR0.25 PO (03:03)
[2018-10-02] MEDS: NS IV 1000 ML 1,000 ML IV SCH ×2 (05:33→15:30)
--- NOTE | 2018-10-02 05:49 | NUR ---
0530-WENT INTO PTS ROOM PTS TELE SITTER WAS GOING OFF. PT HAD HER GOWN OFF AGAIN, TRYING TO GET OUT OF BED. PT YELLING OUT "LET ME OUT OF THIS PLACE" OVER AND OVER AGAIN. PT VERY RESTLESS TRYING TO GET OUT OF BED, PT SWINGING HER ARMS AROUND. 0535-2MG HALDOL IM 1X DOSE GIVEN. 0547- PT STILL RESTLESS AT THIS TIME. WILL CONTINUE TO MONITOR.
[2018-10-02] MEDS ORDERED: LORazepam INJ 2 MG/ML (ATIVAN) VIAL ONE (06:21)
[2018-10-02] MEDS: LORazepam INJ 2 MG/ML (ATIVAN) VIAL IV PRN (06:30)
--- NOTE | 2018-10-02 06:47 | NUR ---
0615- PT STILL RESTLESS AND YELLING FOR HELP. SPOKE WITH DR. FELDER AND INFORMED HER OF PTS CONDITION. TELEPHONE ORDERS RECEIVED TO SWITCH ATIVAN 0.5MG IV Q6HRS PRN TO Q4HRS PRN. 0625- GAVE THE DOSE OF ATIVAN. 0648- PT RESTING COMFORTABLY AT THIS TIME. WILL CONTINUE TO MONITOR.
[2018-10-02 07:05] LABS: BASOPHILS % (AUTO) 1 % (0-10); EOSINOPHILS # (AUTO) 0.2 10^3/uL (0.0-0.3); EOSINOPHILS % (AUTO) 4 % (0-10); HEMATOCRIT 29 % (35-52); HEMOGLOBIN 9.8 G/DL (11.5-16.0); LYMPHOCYTES # (AUTO) 0.6 X 10^3 (1.0-4.0); LYMPHOCYTES % (AUTO) 16 % (12-44); MEAN CORPUSCULAR HEMOGLOBIN 31 PG (25-34); MEAN CORPUSCULAR HGB CONC 34 G/DL (32-36); MEAN CORPUSCULAR VOLUME 92 FL (80-99); MEAN PLATELET VOLUME 8.8 FL (7.4-10.4); MONOCYTES # (AUTO) 0.5 X 10^3 (0.0-1.0); MONOCYTES % (AUTO) 12 % (0-12); NEUTROPHILS # (AUTO) 2.6 X 10^3 (1.8-7.8); NEUTROPHILS % (AUTO) 67 % (42-75); PLATELET COUNT 277 10^3/uL (130-400); RED BLOOD COUNT 3.12 10^6/uL (4.35-5.85); RED CELL DISTRIBUTION WIDTH 13.3 % (10.0-14.5); WHITE BLOOD COUNT 3.9 10^3/uL (4.3-11.0)
[2018-10-02 07:25] LABS: ALANINE AMINOTRANSFERASE 13 U/L (0-55); ALBUMIN 3.4 GM/DL (3.2-4.5); ALKALINE PHOSPHATASE 72 U/L (40-136); BILIRUBIN,TOTAL 0.5 MG/DL (0.1-1.0); BUN/CREATININE RATIO 19; CARBON DIOXIDE 23 MMOL/L (21-32); CHLORIDE 99 MMOL/L (98-107); CREATININE SERUM 0.77 MG/DL (0.60-1.30); GFR ESTIMATED > 60; GLUCOSE 73 MG/DL (70-105); POTASSIUM 3.5 MMOL/L (3.6-5.0); SODIUM 131 MMOL/L (135-145); TOTAL PROTEIN 6.5 GM/DL (6.4-8.2)
--- NOTE | 2018-10-02 08:30 | Diagnostic Imaging Report ---
Indication: Altered mental status, dyspnea. Comparison: 10/01/2018. Discussion: Single portable upright view of the chest was obtained. Low lung volumes. Stable normal heart size. No focal consolidation, pleural fluid, or pneumothorax. Left-sided central venous catheter stable. No osseous abnormality. Impression: 1. Stable chest. No acute cardiopulmonary process. Dictated by: Dictated on workstation # [id number]
--- NOTE | 2018-10-02 09:19 | History & Physical-Hospitalist ---
History of Present Illness HPI/Chief Complaint Pt is an 78yoCF who is quite sedated and unable to provide history. She does not have family at her bedside currently to help with history. Everything is pulled from records. She reported became agitated at the shelter and EMS was called. She was given 400mg Ketamine IM by EMS and on arrival was having significant difficulty protecting her airway. Preparations were made to intubate patient and she was given RSI medications but just prior to intubation family arrived and stated she was a DNR and would not want intubation. She was bagged through the paralytics until she was breathing on her own again. CXR was done and revealed no PNA. Labs had no significant abnormalities. UA is still pending. CT head was negative. She was admitted for altered mentation. Per RN overnight she became agitated and pulled out her IV but responded well to IM haldol.This morning she has remained calm but sleepy since receiving medications for her agitation. Source: patient Date Seen 10/02/18 Time Seen by a Provider: 09:18 Attending Physician Angeline Torres MD PCP Missael Jaramlilo DO Referring Physician Date of Admission Oct 01, 2018 at 17:48 Home Medications & Allergies Home Medications Reviewed patient Home Medication Reconciliation performed by pharmacy medication reconciliations exercise equipment repair technician and/or nursing. Patients Allergies have been reviewed. Allergies Allergies Coded Allergies miconazole (Verified Allergy, Intermediate, RASH, 04/21/17) rash/hives ampicillin (Unverified Allergy, Unknown, 04/21/17) lanolin (Unverified Allergy, Unknown, 04/21/17) Vruwqxz-Kmn-Fas Reductase Inhibitor (Unverified Adverse Reaction, Unknown, 04/21) adhesive tape (Unverified Adverse Reaction, Unknown, 04/21/17) latex (Unverified Adverse Reaction, Unknown, 04/21/17) Past Zesgzar-Yogshy-Vdydhb Hx Past Med/Social Hx: Reviewed Nursing Past Med/Soc Hx Patient Social History Employed/Student: retired Alcohol Use: Denies Use Recreational Drug Use: No Smoking Status: Unknown if Ever Smoked Recent Foreign Travel: No Contact w/other who traveled: No Recent Hopitalizations: No Recent Infectious Disease Expo: No Immunizations Up To Date Tetanus Booster (TDap): Unknown Date of Pneumonia Vaccine: Oct 02, 2015 Date of Influenza Vaccine: Jun 23, 2017 Seasonal Allergies Seasonal Allergies: No Past Medical History Surgeries: Abdominal, Section, Eye Surgery, Gallbladder, Hysterectomy , Oophorectomy, Orthopedic Cardiac: Chronic Edema/Swelling, Hypertension Neurological: Neuropathy Reproductive: Yes (CANCER--SEE BELOW) Sexually Transmitted Disease: No HIV/AIDS: No Genitourinary: Renal Failure Musculoskeletal: Degenerate Disk Disease, Arthritis, Chronic Back Pain Endocrine: Diabetes, Insulin dep HEENT: Macular Degeneration Loss of Vision: Bilateral Hearing Impairment: Denies Cancer: Breast, Uterine, Vaginal Did You Recieve Any Treatments: Yes What Type of Treatment Did You: Chemotherapy, Radiation, Surgical Intervention Psychosocial: Sleep Difficulties Skin/Integumentary: Pruritis, Recent Skin Changes History of Blood Disorders: No ("bleeds easily") Adverse Reaction to Blood Nation: No Family History Reviewed Nursing Family Hx FH: lung cancer G8 SISTER FH: stomach cancer G8 BROTHER FH: uterine cancer 19 MOTHER Myocardial infarction 19 FATHER Neoplasm SON No Pertinent Family Hx, Hypertension Review of Systems ROS-Unable to Obtain: Sedated- unable to provide ROS Constitutional: see HPI Physical Exam Physical Exam Vital Signs Vital Signs - First Documented 10/01/18 10/01/18 10/01/18 16:55 18:52 20:44 Temp 97.9 Pulse 101 Resp 10 B/P (MAP) 172/85 (114) Pulse Ox 89 O2 Delivery Room Air O2 Flow Rate 8.00 Capillary Refill : Less Than 3 Seconds Height, Weight, BMI Height: 5'3.00" Weight: 174lbs. 0.0oz. [id number]; 30.8 BMI Method:Estimated General Appearance: No Apparent Distress, Chronically ill HEENT: PERRL/EOMI, Moist Mucous Membranes Neck: Non Tender, Supple Respiratory: Lungs Clear, No Respiratory Distress Cardiovascular: Regular Rate, Rhythm, No Murmur Gastrointestinal: Normal Bowel Sounds, Non Tender, Soft Extremity: Normal Capillary Refill, No Calf Tenderness Neurologic/Psychiatric: Other (sleeping comfortably, opened eyes to physical stimuli) Skin: Normal Color, Warm/Dry Results Results/Procedures Labs Laboratory Tests 10/01/18 15:55 10/02/18 06:52 Patient resulted labs reviewed. Imaging: Reviewed Imaging Report Assessment/Plan Admission Diagnosis Altered Mental Status Admission Status: Inpatient Order (span 2 midnights) Reason for Inpatient Admission: Needs furhter work up for evaluation of agitation, will take more than two midnights to stabilize for DC Diagnosis/Problems Diagnosis/Problems (1) Altered mental status Status: Acute Assessment & Plan: Ct head negative, no obvious lab abnormalities UA ordered Discussed with RN who will place catheter to obtain as patient is incontinent I have a high suspicion pt has UTI and underlying etiology of change in mentation Consider MRI head if UA negative Speech therapy ordered to make sure safe to take PO Qualifiers: Altered mental status type: transient alteration of awareness Qualified Codes: R40.4 - Transient alteration of awareness (2) Essential (primary) hypertension Assessment & Plan: Resume home meds as able (3) Dementia Status: Chronic Assessment & Plan: Unsure of baseline Will add scheduled risperdal for agitation Qualifiers: Dementia type: unspecified type Dementia behavioral disturbance: with behavioral disturbance Qualified Codes: F03.91 - Unspecified dementia with behavioral disturbance Clinical Quality Measures DVT/VTE Risk/Contraindication: Risk Factor Score Per Nursin RFS Level Per Nursing on Admit: 4+=Very High ANGELINE TORRES MD Oct 02, 2018 09:19
[2018-10-02] MEDS: risperiDONE 0.25 MG (RisperDAL) TAB PO SCH ×2 (09:48→20:59)
[2018-10-02] MEDS: lisINopril 20 MG (PRINIVIL) TABLET PO SCH (09:48)
[2018-10-02 09:54] LABS: BILIRUBIN,URINE NEGATIVE (NEGATIVE); CLARITY,URINE CLEAR; COLOR,URINE YELLOW; GLUCOSE, URINE (UA) NEGATIVE (NEGATIVE); KETONES,URINE 1+ (NEGATIVE); LEUKOCYTE ESTERASE ,URINE NEGATIVE (NEGATIVE); NITRITE,URINE NEGATIVE (NEGATIVE); PH,URINE 7 (5-9); PROTEIN,URINE 2+ (NEGATIVE); UROBILINOGEN,URINE NORMAL (NORMAL)
[2018-10-02 10:15] LABS: BACTERIA,URINE MODERATE /HPF; SQUAMOUS EPITHELIAL CELL,UR 0-2 /HPF; WBC,URINE 0-2 /HPF
[2018-10-02] MEDS ORDERED: MIDAZOLAM 5 MG/5 ML (VERSED) VIAL IJ ONE (12:28)
[2018-10-02] MEDS ORDERED: SUCCINYLCHOLINE INJ 100 MG/5 ML SYR INJ ONE (12:28)
--- NOTE | 2018-10-02 13:59 | Occ Therapy Progress Note ---
Therapy Progress Note [id number] Attempted OT evaluation but pt unable to remain awake to participate other than she did bring arms out of under the covers and squeeze OT 's hand. Speech mumbled and unintelligible. Difficult to assess orientation. Pt left up in bed, 4 rails up, sleeping. Will attempt eval again on 10-04-18. visit RENAN ODONNELL OT Oct 02, 2018 13:59
--- NOTE | 2018-10-02 14:15 | NUR ---
Attempted to contact RN at [facility] to receive information about pt's mental and physical baseline. No answer at this time. Will attempt again later.
[2018-10-02] MEDS: cefTRIAXone FOR IV USE 1,000 MG in NS (IVPB) 50 ML IV SCH (15:29)
[2018-10-02] MEDS ORDERED: D5 1/2 NS 1000 ML IV SOLUTION 1,000 ML IV ONE (19:24)
[2018-10-02] MEDS: D5 1/2 NS 1000 ML IV SOLUTION 1,000 ML IV SCH (19:28)
[2018-10-02] MEDS: DESMOPRESSIN 0.2 MG TAB (NON-FORMULARY) PO SCH (20:58)
[2018-10-02] MEDS: inSUlin DETERMIR 1 UNIT/0.01 ML (LEVEMIR) CHARGE PER UNIT SQ SCH (20:59)
[2018-10-02] MEDS: AMITRIPTYLINE 25 MG (ELAVIL) TAB PO SCH (20:59)
[2018-10-03] MEDS: LORazepam INJ 2 MG/ML (ATIVAN) VIAL IV PRN ×4 (03:30→22:55)
[2018-10-03 03:55] VITALS: BP 169/72
[2018-10-03] MEDS: D5 1/2 NS 1000 ML IV SOLUTION 1,000 ML IV SCH ×2 (05:57→15:23)
[2018-10-03 08:00] VITALS: BP 165/72
[2018-10-03] MEDS: risperiDONE 0.25 MG (RisperDAL) TAB PO SCH ×2 (08:23→21:20)
[2018-10-03] MEDS: lisINopril 20 MG (PRINIVIL) TABLET PO SCH (08:23)
--- NOTE | 2018-10-03 08:32 | NUR ---
NOTE THAT THIS RN FOUND THAT STAFF HAS BEEN GIVING PO MEDS -- AFTER ORAL CARE THIS RN HAD PT TAKE SIP OF WATER AND SHE TOLERATED WELL -- THIS RN GAVE PT HER AM MEDS WITH SIP OF WATER AND PT TOLERATED WELL, -- PT VOICED INCREASED CONFUSION AND PULLING AT IV LINE AND INCREASED ANXIETY --IV ATIVAN WAS GIVEN
--- NOTE | 2018-10-03 10:04 | Progress Note-Hospitalist ---
Subjective HPI/CC On Admission Date Seen by Provider: Oct 03, 2018 Time Seen by Provider: 09:58 Pt is an 78yoCF who is quite sedated and unable to provide history. She does not have family at her bedside currently to help with history. Everything is pulled from records. She reported became agitated at the intermediate and EMS was called. She was given 400mg Ketamine IM by EMS and on arrival was having significant difficulty protecting her airway. Preparations were made to intubate patient and she was given RSI medications but just prior to intubation family arrived and stated she was a DNR and would not want intubation. She was bagged through the paralytics until she was breathing on her own again. CXR was done and revealed no PNA. Labs had no significant abnormalities. UA is still pending. CT head was negative. She was admitted for altered mentation. Per RN overnight she became agitated and pulled out her IV but responded well to IM haldol.This morning she has remained calm but sleepy since receiving medications for her agitation. Subjective/Events-last exam Pt is more alert today. She seems very confused which is reportedly her baseline. They only thing she is able to articulate to me is "why am I here with all of these shoes?" There are no shoes in the room noted. Focused Exam Lactate Level 10/01/18 15:55: Lactic Acid Level 1.16 Objective Exam Vital Signs Vital Signs Date Time Temp Pulse Resp B/P (MAP) Pulse Ox O2 Delivery O2 Flow Rate FiO2 10/03/18 08:00 97.1 79 17 165/72 (103) 98 Nasal Cannula 2.00 Capillary Refill : Less Than 3 Seconds General Appearance: No Apparent Distress, Chronically ill Respiratory: Lungs Clear, No Respiratory Distress Cardiovascular: Regular Rate, Rhythm, No Murmur Neurologic/Psychiatric: Alert, Disoriented Results/Procedures Lab Patient resulted labs reviewed. Imaging: Reviewed Imaging Report Assessment/Plan Assessment and Plan Assess & Plan/Chief Complaint Altered Mentation Diagnosis/Problems Diagnosis/Problems (1) Altered mental status Status: Acute Assessment & Plan: Ct head negative, no obvious lab abnormalities UA consistent with UTI- await culture Discussed with RN who states large volume return with catheter placement- symptoms of agitation may have been precipitated by retention Speech therapy ordered to make sure safe to take PO Qualifiers: Altered mental status type: transient alteration of awareness Qualified Codes: R40.4 - Transient alteration of awareness (2) Essential (primary) hypertension Assessment & Plan: Resume home meds as able (3) Dementia Status: Chronic Assessment & Plan: RN spoke with NH who states she is baseline oriented only to self Will add scheduled risperdal for agitation Palliative care consult placed given PPS score of 40% Qualifiers: Dementia type: unspecified type Dementia behavioral disturbance: with behavioral disturbance Qualified Codes: F03.91 - Unspecified dementia with behavioral disturbance (4) Hypoglycemia Status: Acute Assessment & Plan: Continue D51/2NS Speech therapy ordered to help assess oral intake ability Clinical Quality Measures DVT/VTE Risk/Contraindication: Risk Factor Score Per Nursin RFS Level Per Nursing on Admit: 4+=Very High ANGELINE FELDER MD Oct 03, 2018 10:04
[2018-10-03] MEDS: HALOPERIDOL 5 MG/ML (HALDOL) AMP IM PRN ×2 (10:28→15:05)
[2018-10-03 12:00] VITALS: BP 179/78
--- NOTE | 2018-10-03 12:10 | NUR ---
NOTE THAT AT 1200 TELE SITTER WAS SOUNDING OFF -- THIS RN FOUND PT PULLING DSG OFF HER IV SITE IN L FA -- PT WAS ALSO PULLING AT CRAWFORD CATHETER AND VOICING SHE WAS WANTING OUT OF HERE AND SHE WAS GOING TO SCREAM -- IV WAS RE TAPED DOWN AND WRAPPED -- STAFF TRIED TO RE ORIENT PT BUT PT REMAINS VERY CONFUSED -- WILL CONTINUE TO MONITOR
--- NOTE | 2018-10-03 15:10 | NUR ---
PT REMAINS VERY CONFUSED AND CURSING AT STAFF AND TRYING TO PULL IV OUT AND PULLING AT CRAWFORD CATHETER -- AND TRYING TO GET OUT OF BED IV HALADOL PER PRN WAS GIVEN -- PT VERBALIZES SHE WANTS OUT OF HERE RE ORIENTING IS UNSUCCESSFUL PT VOICED SHE IS GOING TO KILL STAFF -- NOTE THAT HER DAUGHTER WAS CALLED
[2018-10-03] MEDS: cefTRIAXone FOR IV USE 1,000 MG in NS (IVPB) 50 ML IV SCH (15:22)
--- NOTE | 2018-10-03 15:59 | NUR ---
NOTE THAT VARSHA (SON-IN-LAW) IS TO ROOM WITH PT
[2018-10-03 16:00] VITALS: BP 172/76
[2018-10-03 20:07] VITALS: BP 152/72
[2018-10-03] MEDS: AMITRIPTYLINE 25 MG (ELAVIL) TAB PO SCH (21:20)
[2018-10-03] MEDS: DESMOPRESSIN 0.2 MG TAB (NON-FORMULARY) PO SCH (21:20)
[2018-10-03] MEDS: inSUlin DETERMIR 1 UNIT/0.01 ML (LEVEMIR) CHARGE PER UNIT SQ SCH (21:21)
[2018-10-04] VITALS (7 sets, daily range): BP systolic 143–183; BP diastolic 53–77
[2018-10-04] MEDS: HALOPERIDOL 5 MG/ML (HALDOL) AMP IM PRN ×3 (00:16→22:06)
[2018-10-04] MEDS ORDERED: diphenhydrAMINE 25 MG TAB (BENADRYL) PO ONE (00:44)
[2018-10-04] MEDS: diphenhydrAMINE 25 MG TAB (BENADRYL) PO PRN ×2 (00:45→18:13)
[2018-10-04] MEDS: D5 1/2 NS 1000 ML IV SOLUTION 1,000 ML IV SCH ×3 (01:38→22:05)
--- NOTE | 2018-10-04 08:50 | ST Dysphagia Evaluation ---
Speech Evaluation-General Medical Diagnosis Altered Mental Status, Onset Date: Oct 01, 2018 Therapy Diagnosis Therapy Diagnosis: Oropharyngeal Dysphagia Precautions Precautions: Aspiration Precautions/Isolations: Fall Prevention, Standard Precautions Medical History Pertinent Medical History: Arthritis, DM, Dementia, HTN, Macular Degenertion, Neuropathy, Renal Insufficiency Reviewed History: Yes Social History Home: Prison Speech PLF/Current-Dysphagia Prior Level of Function Patient lived in the half-way where she was receiving skilled therapy. Subjective Patient was confused and agitated through out the evaluation. Oral Motor Skills Dentition: Edentalous, Natural Patient wears dentures on the top and has natural teeth on the bottom. She did not have her dentures in at the time of evaluation. Oral Expression Ability: Mild Impairment Patient was NPO pending Bedside Dysphagia Evaluation. Face Facial Symmetry: Symmetrical Oral-Facial Assessment Oral-Facial Dentition: Underbite Dysphagia Evaluation Consistencies Presented: Thin Liquid, Pureed Oral Phase: Reduced Oral Transit Patient exhibited ability to clear with swallow. Dietary Recommendations: Pureed Liquid Recommendations: Thin Swallowing Precautions: Alternate Liquids/Solids, Double Swallow, Liquids from Spoon, No Straw, Small Bites and Sips, Sitting Upright 90 Degrees, Sitting 90 Degrees 30 Post Intake Dysphagia Evaluation Summary Patient is an 78 year old female who was referred for a Bedside Dysphagia Evaluation due to possible aspiration. Patient was agitated throughout the evaluation and required calming techniques to participate. Patient is reported to have become very confused and agitated while at the half-way where she resides and was sent to the hospital ED. Patient has altered mental status and is quite confused. Trials of thin liquids and puree were given without incident. Nursing had previously provided a nutritional shake and orange juice for giving medications. Barriers to Learning Altered Mental Status Speech Short Term Goals Short Term Goals Short Term Goals 1) Patient will tolerate least restrictive diet level without s/s of aspiration at 90% or greater. 2) Patient will follow verbal/visual cues for compensatory strategy training with 90% or greater. Speech Care Coordination Manager Goals Group Home Goals Patient will maintain adequate nutrition/hydration via safe effective swallow. Speech-Plan Patient/Family Goals Patient/Family Goals: Patient will return to the half-way where she resides post discharge. Treatment Plan Speech Therapy Treatment Plan: Continue Plan of Care Patient is recommended for skilled ST services to focus on dysphagia Frequency: 3 times per week Estimated Hrs Per Day: .25 hour per day Rehab Potential: Fair Barriers to Learning: ALtered Mental Status Pt/Family Agrees to Plan: Yes Safety Risks/Education Teaching Recipient: Patient, Family Teaching Methods: Discussion Response to Teaching: Verbalize Understanding Education Topics Provided: Safety strategies for oral intake Time Speech Therapy Time In: 08:00 Speech Therapy Time Out: 08:15 Total Billed Time: 15 Billed Treatment Time Godwin KARI Peres Oct 04, 2018 08:50
[2018-10-04] MEDS: risperiDONE 0.25 MG (RisperDAL) TAB PO SCH ×2 (10:29→22:07)
[2018-10-04] MEDS: lisINopril 20 MG (PRINIVIL) TABLET PO SCH (10:29)
[2018-10-04] MEDS ORDERED: CALC-901 PO (10:31)
[2018-10-04] MEDS ORDERED: DEXT15DR23 OU (10:31)
[2018-10-04] MEDS ORDERED: VIT1TABL26 PO (10:31)
[2018-10-04] MEDS ORDERED: PANT40TA2 PO (10:31)
[2018-10-04] MEDS ORDERED: CHOL5000 PO (10:31)
[2018-10-04] MEDS ORDERED: GUAI237L82 PO (10:31)
[2018-10-04] MEDS ORDERED: AMLO5TAB9 PO (10:31)
--- NOTE | 2018-10-04 10:38 | NUR ---
UPDATED MED REC WITH MAR FROM [facility]
--- NOTE | 2018-10-04 10:45 | NUR ---
PALLIATIVE CARE RN to room to see patient and talk with her daughter, Aileen. Patient is readmitted to us only 2+ weeks after discharge from her admission w Hyponatremia. She was admitted to [facility] skilled. Patient is confused...verbalizes somewhat incomprehensible nonsense..usually attack type behaviors.. Daughter reports she is hallucinating and seeing people young and old, known and unknown. Patient reports having pain all the time. Has neuropathy in her feet and had previously attempted Neurontin which also caused hallucinations. On her last admission hospice was discussed as a possible support for the patient and family. Will revisit this discussion this visit.
--- NOTE | 2018-10-04 12:09 | Occupational Therapy Eval ---
OT Evaluation-General/PLF Medical Diagnosis Admission Date Oct 01, 2018 at 17:48 Medical Diagnosis: Altered Mental Status, Onset Date: Oct 01, 2018 Therapy Diagnosis Therapy Diagnosis: Weakness, Decreased ADL skills Height/Weight Height (Feet): 5 Height (Inches): 3.00 Weight (Pounds): 174 Weight (Ounces): 0.0 Precautions Precautions/Isolations: Aspiration, Fall Prevention, Standard Precautions Safety Interventions: Bed Exit Alarm, Reorient-Attempt, Reorient-PRN Weight Bear Status Weight Bearing Restriction: Weight Bearing/Tolerated Referral Physician: Dr. Torres Referral Reason: Activity Tolerance, Self Care, Evaluation/Treatment, Strengthening/ROM Medical History Pertinent Medical History: Arthritis, DM, Dementia, HTN, Macular Degenertion, Neuropathy, Renal Insufficiency Additional Medical History Chronic edema, Renal failure, DDD, vaginal CA Current History Pt. typically lives with daughter. Became ill. Went to [facility]. Gained strength and was ready for discharge. Daughter states that pt. became ill again and came to hospital. Reviewed History: Yes Social History Home: Single Level Current Living Status: Children Entry Into Home: Level Entry ADL-Prior Level of Function Therapy Code Descriptions/Definitions Functional [place] Measure: 0=Not Assessed/NA 4=Minimal Assistance 1=Total Assistance 5=Supervision or Setup 2=Maximal Assistance 6=Modified [place] 3=Moderate Assistance 7=Complete [place] Therapy Quality Codes: 6 Independent with activity with or without an assistive device 5 Patient requires set up or clean up by helper. Patient completes activity by themselves 4 Supervision or touching assist (CGA). [place] provide cues , steadying assist 3 The helper provides less than half the effort to complete the activity 2 The helper provides more than half the effort to complete the activity 1 Dependent. The helper does all the effort to complete an activity 7 Patient refused to complete or attempt activity 9 The patient did not perform the activity before the current illness or injury 88 Not attempted due to Medical conditions or safety concerns Functional Abilities and Goals: Independent: Patient completed the activities by him/herself, with or without an assistive device, with no assistance from a helper. Needed Some Help: Patient needed partial assistance from another person to complete activities. Dependent: A helper completed the activities for the patient. Unknown: Not Applicable: ADL PLOF Comments Daughter states that she typically helps her mother bathe at home and dress. She is able to walk around with walker and feed self. Pt. has dementia. Self Care: Dependent Functional Cognition: Dependent DME/Equipment: Bath Chair, Shower DME/Equipment Comments Pt. has walker at home. OT Current Status Subjective Pt. does not report pain, but grimaces with movement. Appearance Pt. in bed. OT is able to get her to open eyes. Pt. agrees to work with OT. Mental Status/Objective Patient Orientation: Confused Pt. is able to answer some of OT's questions. However, daughter pulls this OT aside later and states that the information that pt. gave was incorrect. Pt. is very confused. Attachments: IV Current Upper Extremity ROM Pt. is able to actively range bilateral shoulders to 90 degrees. However, noted rigidity throughout movement. OT performed gentle PROM to bilateral UE at bed level. Completed shoulder flexion, elbow flexion, and finger flexion. ADL-Treatment Therapy Code Descriptions/Definitions Functional [place] Measure: 0=Not Assessed/NA 4=Minimal Assistance 1=Total Assistance 5=Supervision or Setup 2=Maximal Assistance 6=Modified [place] 3=Moderate Assistance 7=Complete [place] Therapy Quality Codes: 6 Independent with activity with or without an assistive device 5 Patient requires set up or clean up by helper. Patient completes activity by themselves 4 Supervision or touching assist (CGA). [place] provide cues , steadying assist 3 The helper provides less than half the effort to complete the activity 2 The helper provides more than half the effort to complete the activity 1 Dependent. The helper does all the effort to complete an activity 7 Patient refused to complete or attempt activity 9 The patient did not perform the activity before the current illness or injury 88 Not attempted due to Medical conditions or safety concerns Eating (FIM): 1 (Daughter reports that pt. needed assist to feed self.) Grooming (FIM): 1 (Pt. given hair pique. Pt. is unable to bring to her head. OT did this for her.) Transfers (B, C, W/C) (FIM): 1 (Pt. is able to transfer supine-sit with dependent assist. Sat on side of bed for approximately 10 minutes with min assist for balance. Transferred back to bed with dependent assistance x 2.) Education OT Patient Education: Correct positioning, Exercise program, Modified ADL techniques, Progress toward Goal/Update tx plan, Purpose of tx/functional activities, Reviewed precautions, Rehab process, Transfer techniques Teaching Recipient: Patient Teaching Methods: Demonstration, Discussion Response to Teaching: Verbalize Understanding, Return Demonstration OT Short Term Goals Short Term Goals Time Frame: Oct 11, 2018 Eating(FIM): 3 Grooming(FIM): 3 Toileting(FIM): 3 Transfers (B,C,W/C) (FIM): 3 Toilet/Commode Transfer(FIM): 3 Additional Short Term Goals: 1-Demonstrate ADL Tasks, 2-Verbalize Understanding , 3-ImproveStrength/Pedro 1=Demonstrate adherence to instructed precautions during ADL tasks. 2=Patient will verbalize/demonstrate understanding of assistive devices/ modifications for ADL. 3=Patient will improve strength/tolerance for activity to enable patient to perform ADL's. OT Mcc Goals Mcc Goals Time Frame: Oct 25, 2018 Eating (FIM): 5 Grooming(FIM): 5 Toileting(FIM): 4 Transfers (B,C,W/C) (FIM): 4 Toilet/Commode Transfer(FIM): 4 Additional Goals: 1-Demonstrate ADL Tasks, 2-Verbalize Understanding, 3- ImproveStrength/Pedro 1=Demonstrate adherence to instructed precautions during ADL tasks. 2=Patient will verbalize/demonstrate understanding of assistive devices/ modifications for ADL. 3=Patient will improve strength/tolerance for activity to enable patient to perform ADL's. OT Education/Plan Problem List/Assessment Assessment: Decreased Activ Tolerance, Decreased Safety Aware, Decreased UE Strength, Dependent Transfers, Impaired Bed Mobility, Impaired Cognition, Impaired Coordination, Impaired Funct Balance, Impaired I ADL's, Impaired Self- Care Skills, Restricted Funct UE ROM Discharge Recommendations Plan/Recommendations: Continue POC Therapy D/C Recommendations: 24 hr Supervision Treatment Plan/Plan of Care Treatment,Training & Education: Yes Patient would benefit from OT for education, treatment and training to promote independence in ADL's, mobility, safety and/or upper extremity function for ADL' s. Plan of Care: ADL Retraining, Caregiver Training, Functional Mobility, UE Funct Exercise/Act Treatment Duration: Oct 25, 2018 Frequency: 5 times per week Estimated Hrs Per Day: .25 hour per day Agreement: Yes Rehab Potential: Guarded Time/GCodes Start Time: 11:30 Stop Time: 11:55 Total Time Billed (hr/min): 25 Billed Treatment Time 1, EVH x 10minutes, FA x 15minutes KAYLA GOMEZ OT Oct 04, 2018 12:09
[2018-10-04] MEDS: LORazepam INJ 2 MG/ML (ATIVAN) VIAL IV PRN ×2 (13:15→18:14)
--- NOTE | 2018-10-04 13:45 | NUR ---
Pastoral Care Visit, pt confused, offered support and prayer with daughter at bedside.
[2018-10-04] MEDS: NITROGLYCERIN 2% OINT 1 GM UNIT DOSE PACKET TOP PRN (14:24)
[2018-10-04] MEDS: cefTRIAXone FOR IV USE 1,000 MG in NS (IVPB) 50 ML IV SCH (14:32)
--- NOTE | 2018-10-04 16:06 | Progress Note-Hospitalist ---
Progress Note Progress Notes/Assess & Plan Date Seen 10/04/18 Time Seen by Provider: 16:02 Assessment & Plan [facility] because [facility] and aggressive behavior. Her daughter is present in the room today and reports that this dementia has been increasing phenomenon since May or thereab. She has also had a history of recurrent urinary tract infections for much of her life. [facility] apparently [facility] room because of agitation and aggressive behavior. This has been present since before . Physical exam: the patient is agitated and quite confused. Because of this behavior Dr. Torres had started her on IV Haldol as necessary and scheduled Risperdal. To this point nothing much has improved. She speaks in a nonsensical fashion. Lungs are clear to auscultation. CV was regular. Impression: Agitated dementia. 2.apparent urinary tract infection with enterococcus faecalis. Plan: Change to Macrodantin by mouth and discontinue Rocephin. LESIA MERAZ MD Oct 04, 2018 16:06
[2018-10-04] MEDS ORDERED: HALOPERIDOL 5 MG/ML (HALDOL) AMP IM ONE (16:15)
--- NOTE | 2018-10-04 16:20 | NUR ---
PT HAS STARTED GETTING INCREASINGLY AGITATED. SPOKE WITH DR. MERAZ VERBAL ORDERS RECEIVED FOR 1X DOSE 2MG HALDOL IM.
--- NOTE | 2018-10-04 17:42 | NUR ---
1415-BP 172/70 1424-NITRO PATCH PLACED ON RIGHT CHEST WALL. 1500-2MG IM HALDOL GIVEN FOR INCREASING AGITATION. 1530-DR. MERAZ IN TO SEE PT AND SPOKE WITH DAUGHTER ABOUT CONTINUING IV ABX THEN GOING BACK TO [facility], [place]. DR. MERAZ ALSO ADVISED THE DAUGHTER THAT HE DOES NOT THINK THE INCREASING AGITATION IS DUE TO UTI, HE EDUCATED DAUGHTER ON HER INCREASING AGITATION IS MORE THAN LIKELY DUE TO DEMENTIA GETTING WORSE. 1554-BP 158/53 1600-PTS DAUGHTER HAD TO LEAVE AND PT GOT VERY AGITATED AFTER SHE LEFT. PT KEPT TRYING TO GET OUT OF BED, SHE WAS BANGING HER HAND ON THE SIDE RAIL YELLING VERY LOUD FOR HELP. WHEN ASKED WHAT THE PT WANTED SHE KEPT SAYING SHE NEEDED TO GET OUT OF HERE. PT ALSO PULLING AT HER CRAWFORD AND IV MULTIPLE TIMES. UNABLE TO CONSOLE PT AT THIS TIME. 1620-2MG IM HALDOL GIVEN. 1700-PTS SON IN LAW SHOWED UP AND HELPED CONSOLE PT. PT STARTING TO CALM BUT STILL TRYING TO GET OUT OF BED AND CONTINUES TO PULL AT HER CRAWFORD AND IV.
[2018-10-04] MEDS: NITROFURANTOIN 50 MG (MACRODANTIN) CAP PO SCH ×2 (18:13→23:31)
--- NOTE | 2018-10-04 19:42 | NUR ---
PTS IV INFILTRATED. SPOKE WITH DR. MERAZ, HE OKAYED FOR US TO USE PTS PORT. 2000- PTS PORT ACCESSED AT THIS TIME.
[2018-10-04] MEDS: DESMOPRESSIN 0.2 MG TAB (NON-FORMULARY) PO SCH (22:07)
[2018-10-04] MEDS: inSUlin DETERMIR 1 UNIT/0.01 ML (LEVEMIR) CHARGE PER UNIT SQ SCH (22:07)
[2018-10-04] MEDS: POLYETHYLENE GLYCOL 17 GM (MIRALAX) PACK PO SCH (22:07)
[2018-10-04] MEDS: AMITRIPTYLINE 25 MG (ELAVIL) TAB PO SCH (22:07)
[2018-10-05] VITALS (7 sets, daily range): BP systolic 140–194; BP diastolic 56–84
[2018-10-05] MEDS: LORazepam INJ 2 MG/ML (ATIVAN) VIAL IV PRN ×3 (01:05→10:54)
[2018-10-05] MEDS: diphenhydrAMINE 25 MG TAB (BENADRYL) PO PRN (01:11)
[2018-10-05] MEDS: HALOPERIDOL 5 MG/ML (HALDOL) AMP IM PRN (01:47)
--- NOTE | 2018-10-05 02:30 | NUR ---
CALLED DR. MERAZ AND INFORMED HIM THAT ATIVAN HAD BEEN ADMINISTERED AT 0100 AND THAT HALDOL HAD BEEN ADMINISTERED AT 0145 AND THAT PATIENT WAS STILL YELLING AND AGITATED. RECEIVED ORDER FOR ONE TIME DOSE OF HALDOL 2MG AND TO CHANGE THE PRN HALDOL ORDER TO 4MG. ALSO RECEIVED ORDERS TO CHANGE BENADRYL FROM PO TO IV.
[2018-10-05] MEDS ORDERED: HALOPERIDOL 5 MG/ML (HALDOL) AMP IM ONE (02:45)
[2018-10-05] MEDS ORDERED: HALOPERIDOL 5 MG/ML (HALDOL) AMP IM PRN ×2 (04:45→13:00)
[2018-10-05] MEDS: NITROFURANTOIN 50 MG (MACRODANTIN) CAP PO SCH ×3 (06:02→18:07)
[2018-10-05] MEDS: D5 1/2 NS 1000 ML IV SOLUTION 1,000 ML IV SCH ×3 (06:02→19:38)
--- NOTE | 2018-10-05 09:42 | NUR ---
PT SLEEPING. DAUGHTER REQUESTED TO WAIT ON 0900 MEDS THE PT IS FINALLY ASLEEP AND NONCOMBATIVE. WILL GIVE MEDS ONCE PT WAKES UP.
[2018-10-05] MEDS: risperiDONE 0.25 MG (RisperDAL) TAB PO SCH ×2 (10:54→22:00)
[2018-10-05] MEDS: lisINopril 20 MG (PRINIVIL) TABLET PO SCH (10:54)
--- NOTE | 2018-10-05 11:10 | NUR ---
PALLIATIVE CARE RN had a long discussion with patient's daughter, Aileen. She is asking good questions regarding he stage of dementia that her mother is in and looked to me for answers. Told her that she is nearing if not in the end stage with progression since early fall of last year. Patient is unable to communicate in intelligible form. She mostly answer with an "uh uh" in the negative. She is progressively agitated and fidgety. Daughter has requested to speak to hospice about possibilities for assist. She has not decided if she will be taking her home or placing her in the SNF for EOL care with hospice. Referral placed and Leigh is already here from [facility], [place].
--- NOTE | 2018-10-05 12:36 | Progress Note-Hospitalist ---
Progress Note Progress Notes/Assess & Plan Date Seen 10/05/18 Time Seen by Provider: 12:32 Assessment & Plan The daughter is at bedside and reports that her mother finally was able to sleep in the career development consultant hours. She is now arousable and seems to be placated by a fuzzy stuffed toy kitten. She states that she seems to be having some difficulty swallowing including medications. Speech saw her for a bedside swallow study yesterday and found that with repeated cues she was able to swallow satisfactorily. I would believe that medications may also be causing dry mouth adding to her difficulties. While I am in the room she is arousable but certainly not agitated. Physical exam: She is calm and peaceful today. Lungs are clear to auscultation. CV is regular. During the exam she made no attempt to grab or strike. Impression: Agitated dementia. 2.history of progressive dementia. 3.Enterococcus faecalis urinary tract infection. Plan: Adjust medications with regard to oral administration and management of aggression in the [facility] setting. LESIA MERAZ MD Oct 05, 2018 12:36
--- NOTE | 2018-10-05 14:25 | Occ Therapy Progress Note ---
Therapy Progress Note Attempted to see pt. this a.m. Family having conference with other clinician. Will attempt back at later time as time allows. 1, visit [id number] KAYLA GOMEZ OT Oct 05, 2018 14:25
--- NOTE | 2018-10-05 15:58 | Occ Therapy Progress Note ---
Therapy Progress Note Attempted treatment again this afternoon. Lights out, door shut. OT entered and pt. sound asleep, as is her family member who is also laying on pull out cot. Suspect little sleep last night due to pt's agitation and aggression. Will let family and pt. sleep at this time and check back in a.m. 1, visit [id number] KAYLA GOMEZ OT Oct 05, 2018 15:58
[2018-10-05] MEDS: NITROGLYCERIN 2% OINT 1 GM UNIT DOSE PACKET TOP PRN (16:56)
--- NOTE | 2018-10-05 16:58 | NUR ---
bp 194/79 nitro paste applied as ordered
--- NOTE | 2018-10-05 18:08 | NUR ---
PT NOT ALERT TO TAKE MED. DISCUSSED WITH PT DAUGHTER AND SHE VOICED HER UNDERSTANDING.
--- NOTE | 2018-10-05 18:38 | NUR ---
BP RECHECKED W MANUAL CUFF IN RIGHT ARM AND IT IS 164/78 AFTER HAVING NITRO PASTE APPLIED TO RIGHT CHEST.
[2018-10-05] MEDS: AMITRIPTYLINE 25 MG (ELAVIL) TAB PO SCH (22:00)
[2018-10-05] MEDS: DESMOPRESSIN 0.2 MG TAB (NON-FORMULARY) PO SCH (22:00)
[2018-10-05] MEDS: POLYETHYLENE GLYCOL 17 GM (MIRALAX) PACK PO SCH (22:00)
[2018-10-05] MEDS: inSUlin DETERMIR 1 UNIT/0.01 ML (LEVEMIR) CHARGE PER UNIT SQ SCH (22:02)
--- NOTE | 2018-10-05 22:02 | NUR ---
PT UNABLE TO WAKE UP ENOUGH TO TAKE ORAL MEDICATIONS AT THIS TIME. PTS BLOOD SUGAR WAS 89, HS LEVEMIR NOT GIVEN AT THIS TIME EITHER.
[2018-10-06] VITALS (7 sets, daily range): BP systolic 135–172; BP diastolic 70–84
[2018-10-06] MEDS: NITROGLYCERIN 2% OINT 1 GM UNIT DOSE PACKET TOP PRN (00:41)
[2018-10-06] MEDS: NITROFURANTOIN 50 MG (MACRODANTIN) CAP PO SCH ×4 (00:49→18:13)
--- NOTE | 2018-10-06 00:53 | NUR ---
0015- PTS BP 172/84 AT THIS TIME. 0035-NITRO PASTE PLACED ON LEFT CHEST WALL. PT ALSO NOT ABLE TO WAKE UP ENOUGH TO TAKE ORAL MEDICATIONS AT THIS TIME. WILL CONTINUE TO MONITOR.
[2018-10-06] MEDS: LORazepam INJ 2 MG/ML (ATIVAN) VIAL IV PRN ×4 (02:16→21:24)
[2018-10-06] MEDS: D5 1/2 NS 1000 ML IV SOLUTION 1,000 ML IV SCH ×2 (05:37→22:21)
--- NOTE | 2018-10-06 05:38 | NUR ---
PT LETHARGIC AT THIS TIME AND UNABLE TO SWALLOW 0600 MACRODANTIN MEDICATION.
--- NOTE | 2018-10-06 09:00 | NUR ---
PT. WAKING UP. MEDICATIONS CRUSHED AND ATTEMPTED TO ADMINISTER. PT. REFUSING TO TAKE A BITE OR DRINK. NO SIGNS OF AGITATION, JUST REFUSAL TO COOPERATE.
[2018-10-06] MEDS: lisINopril 20 MG (PRINIVIL) TABLET PO SCH (09:37)
[2018-10-06] MEDS: risperiDONE 0.25 MG (RisperDAL) TAB PO SCH ×2 (09:37→19:44)
--- NOTE | 2018-10-06 09:40 | NUR ---
PT. BACK TO A LETHARGIC STATE. ABLE TO OPEN EYES TO THIS ASSISTANT TRACK AND FIELD COACH'S VOICE BUT DOES NOT STAY ALERT.
--- NOTE | 2018-10-06 11:30 | Progress Note-Hospitalist ---
Progress Note Progress Notes/Assess & Plan Date Seen 10/06/18 Time Seen by Provider: 11:30 Assessment & Plan The patient is quite sedated today. She is arousable and mumbles responses to questions. She rather promptly dozes back to sleep. We had hoped to send her back to the long-term today however it would be more prudent to DC her Haldol and reduce the dose on the Risperdal prior to doing that. Vital signs are stable. Physical exam: She is calm and lethargic. Her tongue appears dry. Lungs are clear to auscultation. CV is regular. Impression: Urinary tract infection with enterococcus faecalis. 2.progressive dementia with aggressive behavior. Plan: Reduce medications and observe. LESIA MERAZ MD Oct 06, 2018 11:30
--- NOTE | 2018-10-06 11:32 | Occupational Ther Daily Note ---
OT Current Status-Daily Note Subjective Pt sleeping in bed, woke to touch and name. Pt groggy until she started talking about stuffed cat. Pt confused and pleasant. Mental Status/Objective Patient Orientation: Person, Confused Therapy Code Descriptions/Definitions Functional [place] Measure: 0=Not Assessed/NA 4=Minimal Assistance 1=Total Assistance 5=Supervision or Setup 2=Maximal Assistance 6=Modified [place] 3=Moderate Assistance 7=Complete [place] Attachments: Marroquin Catheter, IV Other Treatment Pt unable to follow simple directions. Given one step questions with verbal and gestural cues pt unable to complete ROM exercises. Physical cues required to complete ROM exercise for UE's. Pt resisted going full ROM and was guarded with movement. When attempted to allow pt to complete movement on own, pt would keep arm in same place after physical cue was gone then would continue with physical cue. Pt talked about her stuffed cat like it was alive. After therapy, pt lying in bed with call light in reach. Safety measures in place. Nrsg in room taking vital signs. All needs met in room. OT Short Term Goals Short Term Goals Time Frame: Oct 11, 2018 Eating(FIM): 3 Grooming(FIM): 3 Toileting(FIM): 3 Transfers (B,C,W/C) (FIM): 3 Toilet/Commode Transfer(FIM): 3 Additional Short Term Goals: 1-Demonstrate ADL Tasks, 2-Verbalize Understanding , 3-ImproveStrength/Pedro 1=Demonstrate adherence to instructed precautions during ADL tasks. 2=Patient will verbalize/demonstrate understanding of assistive devices/ modifications for ADL. 3=Patient will improve strength/tolerance for activity to enable patient to perform ADL's. OT Residential Goals Revenue Stamper Goals Time Frame: Oct 25, 2018 Eating (FIM): 5 Grooming(FIM): 5 Toileting(FIM): 4 Transfers (B,C,W/C) (FIM): 4 Toilet/Commode Transfer(FIM): 4 Additional Goals: 1-Demonstrate ADL Tasks, 2-Verbalize Understanding, 3- ImproveStrength/Pedro 1=Demonstrate adherence to instructed precautions during ADL tasks. 2=Patient will verbalize/demonstrate understanding of assistive devices/ modifications for ADL. 3=Patient will improve strength/tolerance for activity to enable patient to perform ADL's. OT Education/Plan Discharge Recommendations Plan/Recommendations: Continue POC Treatment Plan/Plan of Care Patient would benefit from OT for education, treatment and training to promote independence in ADL's, mobility, safety and/or upper extremity function for ADL' s. Plan of Care: ADL Retraining, Caregiver Training, Functional Mobility, UE Funct Exercise/Act Treatment Duration: Oct 25, 2018 Frequency: 5 times per week Estimated Hrs Per Day: .25 hour per day Agreement: Yes Rehab Potential: Guarded Time/GCodes Start Time: 11:15 Stop Time: 11:33 Total Time Billed (hr/min): 18 Billed Treatment Time 1 visit-FA 1 (18 min) LATRELL FRANCISCO Oct 06, 2018 11:32
--- NOTE | 2018-10-06 16:00 | NUR ---
Pt. awake and pulling at chapin catheter tubing. Pt. found to have pulled out her port access and has the IV tubing in hand. No signs of bleeding. IV ok to leave out per Dr. Paul. Alternative calming mechanisms tried with no relief. Pt. continues to be agitated. IV started in right forearm by nursing fire supervisor and PRN ativan given.
[2018-10-06] MEDS: AMITRIPTYLINE 25 MG (ELAVIL) TAB PO SCH (19:44)
[2018-10-06] MEDS ORDERED: BISACODYL 10 MG SUPP (DULCOLAX) PR NR (19:45)
[2018-10-06] MEDS: DESMOPRESSIN 0.2 MG TAB (NON-FORMULARY) PO SCH (19:45)
[2018-10-06] MEDS: POLYETHYLENE GLYCOL 17 GM (MIRALAX) PACK PO SCH (19:45)
[2018-10-06] MEDS: diphenhydrAMINE 50 MG/ML INJ (BENADRYL) IVP PRN (22:01)
[2018-10-06] MEDS: inSUlin DETERMIR 1 UNIT/0.01 ML (LEVEMIR) CHARGE PER UNIT SQ SCH (22:21)
[2018-10-07 00:15] VITALS: BP 130/58
[2018-10-07] MEDS: NITROFURANTOIN 50 MG (MACRODANTIN) CAP PO SCH ×3 (00:38→08:53)
[2018-10-07] MEDS: D5 1/2 NS 1000 ML IV SOLUTION 1,000 ML IV SCH ×2 (00:41→10:00)
--- NOTE | 2018-10-07 01:08 | NUR ---
1900- RIGHT AFTER GETTING REPORT ON PT, PTS DAUGHTER STOPPED ME IN THE HALLWAY STATING HER MOM WAS IN EXTREME PAIN AND WANTED TO KNOW WHEN WE COULD GET HER SOMETHING FOR THE PAIN. DAY SHIFT NURSE RECEIVED ORDERS FOR DULCOLAX SUPPOSITORY. 1944- PT ABLE TO TAKE ORAL MEDICATIONS AT THIS TIME CRUSHED IN PUDDING, PT ALSO DRANK HER MIRALAX. SUPPOSITORY GIVEN. PT VERY UPSET WHEN TURNING HER ON HER SIDE, PT YELLING SCREAMING, KICKING AND HITTING. PT ALSO THREATENED ME AND STAFF DURING THIS TIME. 2099 PT GETTING VERY AGITATED AGAIN SCREAMING, YELLING FOR HELP. PRN ATIVAN GIVEN. PT ON BEDPAN, PT WAS ABLE TO HAVE 1 SMALL BM. 2149- RECEIVED CALL FROM [employer] THAT PT HAS HER CRAWFORD IN HER HAND TRYING TO PULL AT IT. WALKED INTO PTS ROOM IMMEDIATELY AFTER RECEIVING THE CALL AND PT HAD RIPPED CRAWFORD OUT WITH BALLOON STILL INFLATED. SMALL AMT OF BLOOD AT VAGINAL AREA. 2199-IV BENADRYL GIVEN. 2299-PT ON BED VARGAS AGAIN, ABLE TO HAVE MODERATE SIZED BM. DEBURR OPERATOR ABLE TO PUT IN ANOTHER CRAWFORD 16F. PT WAS SCREAMING AND YELLING DURING THIS PROCESS. 0-PT CALM AT THIS TIME, MORE PLEASANT. PT ALSO STATES SHE FEELS BETTER AFTER BM. 0000-PT SLEEPING, UNABLE TO GIVE 0000 MEDICATIONS AT THIS TIME. DAUGHTER IS AT BEDSIDE AT THIS TIME. WILL CONTINUE TO MONITOR PT.
[2018-10-07] MEDS: diphenhydrAMINE 50 MG/ML INJ (BENADRYL) IVP PRN ×3 (02:54→11:19)
[2018-10-07 04:15] VITALS: BP 144/62
[2018-10-07 07:55] VITALS: BP 165/72
[2018-10-07] MEDS: risperiDONE 0.25 MG (RisperDAL) TAB PO SCH (08:52)
[2018-10-07] MEDS: lisINopril 20 MG (PRINIVIL) TABLET PO SCH ×2 (08:52→09:01)
[2018-10-07] MEDS: LORazepam INJ 2 MG/ML (ATIVAN) VIAL IV PRN (08:53)
--- NOTE | 2018-10-07 09:30 | NUR ---
PALLIATIVE CARE internal review and audit compliance events of the evening and night. Spoke with hospitalist, Dr. Mcdowell about and she is going to have [facility] evaluate.
[2018-10-07 09:42] LABS: BASOPHILS % (AUTO) 0 % (0-10); EOSINOPHILS # (AUTO) 0.1 10^3/uL (0.0-0.3); EOSINOPHILS % (AUTO) 1 % (0-10); HEMATOCRIT 28 % (35-52); HEMOGLOBIN 9.7 G/DL (11.5-16.0); LYMPHOCYTES # (AUTO) 0.7 X 10^3 (1.0-4.0); LYMPHOCYTES % (AUTO) 12 % (12-44); MEAN CORPUSCULAR HEMOGLOBIN 31 PG (25-34); MEAN CORPUSCULAR HGB CONC 34 G/DL (32-36); MEAN CORPUSCULAR VOLUME 92 FL (80-99); MEAN PLATELET VOLUME 8.5 FL (7.4-10.4); MONOCYTES # (AUTO) 0.7 X 10^3 (0.0-1.0); MONOCYTES % (AUTO) 11 % (0-12); NEUTROPHILS # (AUTO) 4.5 X 10^3 (1.8-7.8); NEUTROPHILS % (AUTO) 75 % (42-75); PLATELET COUNT 229 10^3/uL (130-400); RED BLOOD COUNT 3.09 10^6/uL (4.35-5.85); RED CELL DISTRIBUTION WIDTH 13.4 % (10.0-14.5)
[2018-10-07 10:05] LABS: ALANINE AMINOTRANSFERASE 43 U/L (0-55); ALBUMIN 3.2 GM/DL (3.2-4.5); ALKALINE PHOSPHATASE 80 U/L (40-136); BILIRUBIN,TOTAL 0.4 MG/DL (0.1-1.0); BUN/CREATININE RATIO 10; CALCIUM 8.8 MG/DL (8.5-10.1); CARBON DIOXIDE 24 MMOL/L (21-32); CREATININE SERUM 0.79 MG/DL (0.60-1.30); GFR ESTIMATED > 60; GLUCOSE 165 MG/DL (70-105)
[2018-10-07 10:35] LABS: CHLORIDE 104 MMOL/L (98-107); POTASSIUM 3.2 MMOL/L (3.6-5.0); SODIUM 136 MMOL/L (135-145)
--- NOTE | 2018-10-07 10:39 | Discharge Summary-Hospitalist ---
LIBORIO FELDMAN DO 10/07/18 1039: Diagnosis/Chief Complaint Date of Admission Oct 01, 2018 at 17:48 Date of Discharge Admission Diagnosis Altered Mental Status Discharge Diagnosis (1) Altered mental status Status: Acute Assessment & Plan: Ct head negative, no obvious lab abnormalities UA consistent with UTI- await culture Discussed with RN who states large volume return with catheter placement- symptoms of agitation may have been precipitated by retention Speech therapy ordered to make sure safe to take PO (2) Essential (primary) hypertension Assessment & Plan: Resume home meds as able (3) Dementia Status: Chronic Assessment & Plan: RN spoke with NH who states she is baseline oriented only to self Will add scheduled risperdal for agitation Palliative care consult placed given PPS score of 40% (4) Hypoglycemia Status: Acute Assessment & Plan: Continue D51/2NS Speech therapy ordered to help assess oral intake ability Discharge Summary Discharge Physical Exam Allergies: Coded Allergies: miconazole (Verified Allergy, Intermediate, RASH, 04/21/17) rash/hives ampicillin (Unverified Allergy, Unknown, 04/21/17) lanolin (Unverified Allergy, Unknown, 04/21/17) Jvnhuyp-Rcf-Bzz Reductase Inhibitor (Unverified Adverse Reaction, Unknown , 04/21/17) adhesive tape (Unverified Adverse Reaction, Unknown, 04/21/17) latex (Unverified Adverse Reaction, Unknown, 04/21/17) Vitals & I&Os Vital Signs Date Time Temp Pulse Resp B/P (MAP) Pulse Ox O2 Delivery O2 Flow Rate FiO2 10/07/18 11:37 98.4 83 18 172/68 (102) 99 Room Air 10/04/18 00:06 2.00 General Appearance: No Apparent Distress, WD/WN, Chronically ill Neurologic/Psychiatric: Alert, No Motor/Sensory Deficits, Normal Mood/Affect, Disoriented Hospital Course Was the Problem List Reviewed?: Yes Hospital course: Patient had a hospital course she was placed in the hospital for IV antibiotics and UTI with increased confusion. Antipsychotics were given due to agitation and aggression but that oversedated her so those were decreased and agitation persisted. Labs remained stable. Overall patient has such significant dementia she would have to be in [facility] unit for medication management prior to going back to the intermediate but DNR and poor prognosis persists. Labs (last 24 hrs) Microbiology 10/01/18 Blood Culture - Final, Complete No growth 10/02/18 Urine Culture - Final, Complete Enterococcus faecalis Patient resulted labs reviewed. Pending Labs Imaging: Reviewed Imaging Report Discussion & Recommendations Discharge Planning: <30 minutes discharge planning Discharge Home Medications: Active Scripts Active Reported Robitussin Cough-Chest Dm Liq (Guaifenesin/Dextromethorphan) 237 Ml Liquid 5 Ml PO Q4H PRN Vitamin D3 (Cholecalciferol (Vitamin D3)) 5,000 Unit Capsule 5,000 Unit PO DAILY Protonix (Pantoprazole Sodium) 40 Mg Tablet.dr 40 Mg PO DAILY Amlodipine Besylate 5 Mg Tablet 5 Mg PO DAILY Calcium 600 + Vit D 800 Tab (Calcium Carbonate/Vitamin D3) 1 Each Tablet 1 Tab PO BID Natural Balance Tears Eye Drop (Dextran 70/Hypromellose) 15 Ml Drops 1-2 Drops OU QID PRN Ocuvite with Lutein Tablet (Vit A,C & E/Lutein/Minerals) 1 Each Tablet 1 Tab PO DAILY Acetaminophen 325 Mg Tablet 650 Mg PO Q4H PRN Magnesium Oxide 400 Mg Tablet 400 Mg PO 1200 Culturelle (Lactobacillus Rhamnosus GG) 1 Each Capsule 1 Cap PO 1200 Gabapentin 100 Mg Capsule 100 Mg PO BID Vesicare (Solifenacin Succinate) 5 Mg Tablet 5 Mg PO DAILY Cranberry 12,600 mg Softgel (Cranberry Conc/Ascorbic Acid) 1 Each Capsule 2 Cap PO DAILY Women's Daily Caplet (Multivits,Ca,Minerals/Iron/FA) 1 Each Tablet 1 Tab PO DAILY Desmopressin Acetate 0.2 Mg Tablet 0.2 Mg PO HS Triamcinolone Acetonide 0.1% Cream (Triamcinolone Acet) 15 Gm Cr 1 Gm TP DAILY Lantus Solostar (Insulin Glargine,Hum.rec.anlog) 100 Unit/1 Ml Insuln.pen 20 Unit SQ HS Zantac (Ranitidine HCl) 150 Mg Tablet 150 Mg PO DAILY PRN Citalopram HBr (Citalopram Hydrobromide) 10 Mg Tablet 10 Mg PO HS Amitriptyline HCl 25 Mg Tablet 25 Mg PO HS Lisinopril 20 Mg Tablet 20 Mg PO DAILY Instructions to patient/family Please see electronic discharge instructions given to patient. Clinical Quality Measures DVT/VTE Risk/Contraindication: Risk Factor Score Per Nursin RFS Level Per Nursing on Admit: 4+=Very High YEVGENIY,CORNELIO MEDICAL STUDENT 1/24/19 1057: Discharge Summary Discharge Physical Exam Allergies: Coded Allergies: miconazole (Verified Allergy, Intermediate, RASH, 04/21/17) rash/hives ampicillin (Unverified Allergy, Unknown, 04/21/17) lanolin (Unverified Allergy, Unknown, 04/21/17) Vpotmxh-Wil-Dbu Reductase Inhibitor (Unverified Adverse Reaction, Unknown , 04/21/17) adhesive tape (Unverified Adverse Reaction, Unknown, 04/21/17) latex (Unverified Adverse Reaction, Unknown, 04/21/17) General Appearance: No Apparent Distress Respiratory: Lungs Clear, Normal Breath Sounds Cardiovascular: Regular Rate, Rhythm Neurologic/Psychiatric: Other (at baseline) Hospital Course This is an 78 year old female who had an uncomplicated hospital stay after being admitted for AMS from her intermediate. Pt is normally confused which is her baseline per family. Pt had negative CT head and negative CXR. Pt had episode where she became agitated at night and was given Haloperidol IM. Pt was found to have Enterococcus UTI and was switched to Macrodantin from Rocephin. Pt stable for discharge to [facility] unit. Problem Qualifiers (1) Altered mental status: Altered mental status type: transient alteration of awareness Qualified Codes : R40.4 - Transient alteration of awareness (2) Dementia: Dementia type: unspecified type Dementia behavioral disturbance: with behavioral disturbance Qualified Codes: F03.91 - Unspecified dementia with behavioral disturbance LIBORIO FELDMAN DO Oct 07, 2018 10:39 YANA VUONG MEDICAL STUDENT Oct 07, 2018 10:57
[2018-10-07] MEDS ORDERED: KCL 10 MEQ TAB (MICRO K) PO NR (10:45)
[2018-10-07 11:37] VITALS: BP 172/68
--- NOTE | 2018-10-07 11:44 | NUR ---
CALLED [facility] TO CONFIRM THEY KNEW OF EVAL FOR TRANSFER. ADVISED THAT SELMA SHOULD BE AT HOSPITAL ANY TIME TO DO EVAL.
[2018-10-07] MEDS: NITROGLYCERIN 2% OINT 1 GM UNIT DOSE PACKET TOP PRN (12:15)
--- NOTE | 2018-10-07 13:52 | NUR ---
DISCHARGE PLANNING: Patient has been referred and accepted to [facility] to get assist with her new and progressive anger/agitation/hallucinations that are present with her advancing dementia.
--- NOTE | 2018-10-07 14:57 | NUR ---
REPORT CALLED TO SEBASTIÁN ROBLES.
== END 2018-10-07 14:40 | DRG 690 ==
LOC: EDUNIT# 15:50 → ER 15:53 → 4TH 17:48
PROVIDERS: ADMIT Family Medicine; ATTEND Family Medicine
DX: N39.0 Urinary tract infection, site not specified (principal); B95.2 Enterococcus as the cause of diseases classified elsewhere; R33.9 Retention of urine, unspecified; I10 Essential (primary) hypertension; F03.91 Unspecified dementia, unspecified severity, with behavioral disturbance; E11.649 Type 2 diabetes mellitus with hypoglycemia without coma; E11.40 Type 2 diabetes mellitus with diabetic neuropathy, unspecified; Z66 Do not resuscitate; R13.12 Dysphagia, oropharyngeal phase; M19.91 Primary osteoarthritis, unspecified site; M54.9 Dorsalgia, unspecified; E66.9 Obesity, unspecified; H35.30 Unspecified macular degeneration; G47.9 Sleep disorder, unspecified; Z79.4 Long term (current) use of insulin; Z68.30 Body mass index [BMI] 30.0-30.9, adult; Z85.42 Personal history of malignant neoplasm of other parts of uterus; Z85.44 Personal history of malignant neoplasm of other female genital organs; Z85.3 Personal history of malignant neoplasm of breast; Z92.21 Personal history of antineoplastic chemotherapy; Z92.3 Personal history of irradiation
CPT/HCPCS: 36415; 70450; 71045; 80053; 81000; 82962; 83605; 83690; 85025; 87040; 87077; 87088; 87186; 93005; 94760; 96360; 96361

== ENCOUNTER 2018-11-12 13:42 | Emergency (ER) | payer MEDICARE, OTHER ==
[~2018-11-12] VITALS: Ht 160 cm; Wt 68.0 kg
[~2018-11-12 13:42] MED LIST changes: +ACET325T49 PO; +ALPR0.25 PO; +CALC-901 PO; +CHOL5000 PO; -DESM0.2T2 PO; +DESM0.2T29 PO; +DEXT15DR23 OU; +GABA-486 PO; +GUAI237L82 PO; +LACT1CAP39 PO; +MAGN400T6 PO; +OCUVITE SOFTGE1 EACH PO; -VIT1CAPS9 PO; +VIT1TABL26 PO
--- NOTE | 2018-11-12 13:57 | ED General ---
General Stated Complaint: UTI;FEVER Source of Information: Patient, EMS Exam Limitations: No Limitations History of Present Illness Date Seen by Provider: Nov 12, 2018 Time Seen by Provider: 13:55 Initial Comments This patient presents to ER per EMS from local [facility] with reports of nausea vomiting and fever. She was reportedly he somehow diagnosed with bacteria in her urine 4 days ago but has not yet started an antibiotic. Today she began with nausea vomiting and abdominal pain as well as a fever. Timing/Duration: 1-2 Days Severity: Moderate Associated Systoms: Cough, Fever/Chills, Nausea/Vomiting Allergies and Home Medications Allergies Coded Allergies: miconazole (Verified Allergy, Intermediate, RASH, 04/21/17) rash/hives ampicillin (Unverified Allergy, Unknown, 04/21/17) lanolin (Unverified Allergy, Unknown, 04/21/17) Lmcxmwn-Wvk-Hhe Reductase Inhibitor (Unverified Adverse Reaction, Unknown , 04/21/17) adhesive tape (Unverified Adverse Reaction, Unknown, 04/21/17) latex (Unverified Adverse Reaction, Unknown, 04/21/17) Home Medications Acetaminophen 325 Mg Tablet, 650 MG PO Q4H PRN for PAIN-MILD, (Reported) Amitriptyline HCl 25 Mg Tablet, 25 MG PO HS, (Reported) Amlodipine Besylate 5 Mg Tablet, 5 MG PO DAILY, (Reported) Calcium Carbonate/Vitamin D3 1 Each Tablet, 1 TAB PO BID, (Reported) Cholecalciferol (Vitamin D3) 5,000 Unit Capsule, 5,000 UNIT PO DAILY, (Reported) Citalopram Hydrobromide 10 Mg Tablet, 10 MG PO HS, (Reported) Cranberry Conc/Ascorbic Acid 1 Each Capsule, 2 CAP PO DAILY, (Reported) Desmopressin Acetate 0.2 Mg Tablet, 0.2 MG PO HS, (Reported) Dextran 70/Hypromellose 15 Ml Drops, 1-2 DROPS OU QID PRN for DRY EYES, ( Reported) Gabapentin 100 Mg Capsule, 100 MG PO BID, (Reported) Guaifenesin/Dextromethorphan 237 Ml Liquid, 5 ML PO Q4H PRN for COUGH, (Reported ) Insulin Glargine,Hum.rec.anlog 100 Unit/1 Ml Insuln.pen, 20 UNIT SQ HS, ( Reported) Lactobacillus Rhamnosus GG 1 Each Capsule, 1 CAP PO 1200, (Reported) Lisinopril 20 Mg Tablet, 20 MG PO DAILY, (Reported) Magnesium Oxide 400 Mg Tablet, 400 MG PO 1200, (Reported) Multivits,Ca,Minerals/Iron/FA 1 Each Tablet, 1 TAB PO DAILY, (Reported) Ondansetron 4 Mg Tab.rapdis, 4 MG PO Q6H PRN for NAUSEA/VOMITING Prescribed by: SAI ELENA on 11/12/18 1518 Pantoprazole Sodium 40 Mg Tablet.dr, 40 MG PO DAILY, (Reported) Ranitidine HCl 150 Mg Tablet, 150 MG PO DAILY PRN for HEARTBURN, (Reported) Solifenacin Succinate 5 Mg Tablet, 5 MG PO DAILY, (Reported) Triamcinolone Acet 15 Gm Cr, 1 GM TP DAILY, (Reported) Vit A,C & E/Lutein/Minerals 1 Each Tablet, 1 TAB PO DAILY, (Reported) Patient Home Medication List Home Medication List Reviewed: Yes Review of Systems Review of Systems Constitutional: see HPI, fever EENTM: see HPI Respiratory: see HPI, cough Cardiovascular: no symptoms reported Gastrointestinal: abdominal pain, nausea, vomiting Genitourinary: no symptoms reported Musculoskeletal: no symptoms reported Skin: no symptoms reported Psychiatric/Neurological: No Symptoms Reported Hematologic/Lymphatic: No Symptoms Reported Immunological/Allergic: no symptoms reported Past Dukzcto-Qzrqhf-Bndtlq Hx Patient Social History Recent Hopitalizations: No Immunizations Up To Date Tetanus Booster (TDap): Unknown Date of Pneumonia Vaccine: Oct 02, 2015 Date of Influenza Vaccine: Sep 07, 2018 Seasonal Allergies Seasonal Allergies: No Past Medical History Surgeries: Yes (bilat knee scopes, umb hernia, R breast lumpectomy, ) Abdominal, Section, Eye Surgery, Gallbladder, Hysterectomy, Oophorectomy, Orthopedic Respiratory: No Cardiac: Yes Chronic Edema/Swelling, Hypertension Neurological: Yes Neuropathy Reproductive Disorders: Yes (CANCER--SEE BELOW) Sexually Transmitted Disease: No HIV/AIDS: No Genitourinary: No Renal Failure Gastrointestinal: No (hx of colon mass) Musculoskeletal: Yes Degenerate Disk Disease, Arthritis, Chronic Back Pain Endocrine: Yes (Type II, obesity) Diabetes, Insulin dep HEENT: Yes Macular Degeneration Loss of Vision: Bilateral Hearing Impairment: Denies Cancer: Yes (ENDOMETRIAL ) Breast, Uterine, Vaginal Did You Recieve Any Treatments: Yes What Type of Treatment Did You: Chemotherapy, Radiation, Surgical Intervention Psychosocial: Yes Sleep Difficulties Integumentary: Yes Pruritis, Recent Skin Changes Blood Disorders: No ("bleeds easily") Adverse Reaction/Blood Tranf: No Family Medical History FH: lung cancer G8 SISTER FH: stomach cancer G8 BROTHER FH: uterine cancer 19 MOTHER Myocardial infarction 19 FATHER Neoplasm SON No Pertinent Family Hx, Hypertension Physical Exam Vital Signs Vital Signs - First Documented 11/12/18 13:56 Temp 98.6 Pulse 91 Resp 16 B/P (MAP) 205/87 (126) Pulse Ox 97 O2 Delivery Room Air Capillary Refill : Height, Weight, BMI Height: 5'3.00" Weight: 174lbs. 0.0oz. 78.084095bw; 30.8 BMI Method:Estimated General Appearance: No Apparent Distress, WD/WN Eyes: Bilateral Eye Normal Inspection, Bilateral Eye PERRL, Bilateral Eye EOMI HEENT: PERRL/EOMI Neck: Full Range of Motion, Normal Inspection Respiratory: No Accessory Muscle Use, No Respiratory Distress, Rhonci Gastrointestinal: Normal Bowel Sounds, Soft, Tenderness Neurologic/Psychiatric: Alert, Oriented x3, No Motor/Sensory Deficits Skin: Normal Color, Warm/Dry Focused Exam Lactate Level 11/12/18 14:02: Lactic Acid Level 1.20 Lactic Acid Level Progress/Results/Core Measures Suspected Sepsis SIRS Temperature: Pulse: Respiratory Rate: Laboratory Tests 11/12/18 14:02: White Blood Count 8.0 Blood Pressure / Mean: 11/12/18 14:02: Lactic Acid Level 1.20 Laboratory Tests 11/12/18 14:02: Creatinine 0.84, INR Comment 1.0, Platelet Count 290, Total Bilirubin 0.4 Results/Orders Lab Results Laboratory Tests Test 11/12/18 14:02 11/12/18 14:31 Range/Units White Blood Count 8.0 4.3-11.0 10^3/uL Red Blood Count 2.83 L 4.35-5.85 10^6/uL Hemoglobin 8.9 L 11.5-16.0 G/DL Hematocrit 26 L 35-52 % Mean Corpuscular Volume 93 80-99 FL Mean Corpuscular Hemoglobin 31 25-34 PG Mean Corpuscular Hemoglobin Concent 34 32-36 G/DL Red Cell Distribution Width 13.6 10.0-14.5 % Platelet Count 290 130-400 10^3/uL Mean Platelet Volume 8.9 7.4-10.4 FL Neutrophils (%) (Auto) 87 H 42-75 % Lymphocytes (%) (Auto) 5 L 12-44 % Monocytes (%) (Auto) 8 0-12 % Eosinophils (%) (Auto) 0 0-10 % Basophils (%) (Auto) 0 0-10 % Neutrophils # (Auto) 7.0 1.8-7.8 X 10^3 Lymphocytes # (Auto) 0.4 L 1.0-4.0 X 10^3 Monocytes # (Auto) 0.7 0.0-1.0 X 10^3 Eosinophils # (Auto) 0.0 0.0-0.3 10^3/uL Basophils # (Auto) 0.0 0.0-0.1 10^3/uL Neutrophils % (Manual) 90 % Lymphocytes % (Manual) 6 % Monocytes % (Manual) 2 % Eosinophils % (Manual) 0 % Basophils % (Manual) 0 % Band Neutrophils 2 % Blood Morphology Comment NORMAL Prothrombin Time 13.6 12.2-14.7 SEC INR Comment 1.0 0.8-1.4 Sodium Level 128 L 135-145 MMOL/L Potassium Level 4.2 3.6-5.0 MMOL/L Chloride Level 90 L 98-107 MMOL/L Carbon Dioxide Level 27 21-32 MMOL/L Anion Gap 11 5-14 MMOL/L Blood Urea Nitrogen 14 7-18 MG/DL Creatinine 0.84 0.60-1.30 MG/DL Estimat Glomerular Filtration Rate > 60 BUN/Creatinine Ratio 17 Glucose Level 212 H 70-105 MG/DL Lactic Acid Level 1.20 0.50-2.00 MMOL/L Calcium Level 9.2 8.5-10.1 MG/DL Corrected Calcium 9.7 8.5-10.1 MG/DL Total Bilirubin 0.4 0.1-1.0 MG/DL Aspartate Amino Transf (AST/SGOT) 20 5-34 U/L Alanine Aminotransferase (ALT/SGPT) 9 0-55 U/L Alkaline Phosphatase 82 40-136 U/L Total Protein 6.2 L 6.4-8.2 GM/DL Albumin 3.4 3.2-4.5 GM/DL Lipase 11 8-78 U/L Urine Color YELLOW Urine Clarity CLEAR Urine pH 6 5-9 Urine Specific Reserve 1.020 1.016-1.022 Urine Protein 3+ H NEGATIVE Urine Glucose (UA) 1+ H NEGATIVE Urine Ketones 3+ H NEGATIVE Urine Nitrite NEGATIVE NEGATIVE Urine Bilirubin NEGATIVE NEGATIVE Urine Urobilinogen NORMAL NORMAL MG/DL Urine Leukocyte Esterase 3+ H NEGATIVE Urine RBC (Auto) 3+ H NEGATIVE Urine RBC RARE /HPF Urine WBC >100 H /HPF Urine Squamous Epithelial Cells 5-10 /HPF Urine Crystals NONE /LPF Urine Bacteria LARGE H /HPF Urine Casts NONE /LPF Urine Mucus NEGATIVE /LPF Urine Culture Indicated YES Micro Results Microbiology 11/12/18 Influenza Types A,B Antigen (LEWIS) - Final, Complete My Orders Orders - SAI ELENA APRN Cbc With Automated Diff (11/12/18 13:50) Comprehensive Metabolic Panel (11/12/18 13:50) Blood Culture (11/12/18 13:50) Ua Culture If Indicated (11/12/18 13:50) Chest 1 View, Ap/Pa Only (11/12/18 13:50) Straight Cath (Urinary) (11/12/18 13:50) Lactic Acid Analyzer (11/12/18 13:50) Protime With Inr (11/12/18 13:50) Influenza A And B Antigens (11/12/18 13:50) Ct Abdomen/Pelvis Wo (11/12/18 13:50) Lipase (11/12/18 13:50) Manual Differential (11/12/18 14:02) Urine Culture (11/12/18 14:31) Ceftriaxone For Iv Use (Rocephin For I (11/12/18 15:15) Ns Iv 500 Ml (Sodium Chloride 0.9%) (11/12/18 15:15) Ondansetron Injection (Zofran Injectio (11/12/18 15:45) Promethazine Injection (Phenergan Injec (11/12/18 16:00) Lorazepam Injection (Ativan Injection) (11/12/18 16:45) Medications Given in ED Current Medications Medications Dose Ordered Sig/Anupam Route Start Time Stop Time Status Last Admin Dose Admin Ceftriaxone Sodium 1000 mg/ Sterile Water 10 ml @ 200 mls/hr ONCE ONCE IV 11/12/18 15:15 11/12/18 15:17 DC 11/12/18 15:55 200 MLS/HR Lorazepam 0.5 mg ONCE PRN IVP 11/12/18 16:45 11/12/18 16:58 DC 11/12/18 16:38 0.5 MG Ondansetron HCl 4 mg ONCE ONCE IVP 11/12/18 15:45 11/12/18 15:46 DC 11/12/18 15:56 4 MG Vital Signs/I&O 11/12/18 11/12/18 13:56 16:58 Temp 98.6 Pulse 91 90 Resp 16 16 B/P (MAP) 205/87 (126) 154/84 (107) Pulse Ox 97 95 O2 Delivery Room Air Capillary Refill : Departure Communication (Admissions) She does not have sepsis, symptoms of nausea and the UTI can be managed at the [facility]. I'll prescribe Zofran ODT and intramuscular Rocephin daily for the next 3 days. Impression Primary Impression: UTI (urinary tract infection) Qualified Codes: N30.00 - Acute cystitis without hematuria Disposition: 03 XFER SNF Condition: Stable Departure-Patient Inst. Decision time for Depature: 15:16 Referrals: KAREN MORALES DO (PCP/Family) Primary Care Physician Patient Instructions: Urinary Tract Infection, Adult (DC) Add. Discharge Instructions: 1. Return to ER for any concerns 2. Call her doctor for follow-up next week 3. Injection of Rocephin intramuscular 1 g daily 3 doses. Scripts Ondansetron (Ondansetron Odt) 4 Mg Tab.rapdis 4 MG PO Q6H PRN for NAUSEA/VOMITING, #10 TAB Prov: SAI ELENA APRN 11/12/18 SAI ELENA APRN Nov 12, 2018 13:57
[2018-11-12 14:13] LABS: BASOPHILS % (AUTO) 0 % (0-10); EOSINOPHILS % (AUTO) 0 % (0-10); HEMATOCRIT 26 % (35-52); HEMOGLOBIN 8.9 G/DL (11.5-16.0); LYMPHOCYTES # (AUTO) 0.4 X 10^3 (1.0-4.0); LYMPHOCYTES % (AUTO) 5 % (12-44); MEAN CORPUSCULAR HEMOGLOBIN 31 PG (25-34); MEAN CORPUSCULAR HGB CONC 34 G/DL (32-36); MEAN CORPUSCULAR VOLUME 93 FL (80-99); MEAN PLATELET VOLUME 8.9 FL (7.4-10.4); MONOCYTES # (AUTO) 0.7 X 10^3 (0.0-1.0); MONOCYTES % (AUTO) 8 % (0-12); NEUTROPHILS % (AUTO) 87 % (42-75); PLATELET COUNT 290 10^3/uL (130-400); RED CELL DISTRIBUTION WIDTH 13.6 % (10.0-14.5)
[2018-11-12 14:23] LABS: PROTHROMBIN TIME PATIENT 13.6 SEC (12.2-14.7)
[2018-11-12 14:38] LABS: ALANINE AMINOTRANSFERASE 9 U/L (0-55); ALBUMIN 3.4 GM/DL (3.2-4.5); ALKALINE PHOSPHATASE 82 U/L (40-136); BILIRUBIN,TOTAL 0.4 MG/DL (0.1-1.0); BUN/CREATININE RATIO 17; CALCIUM 9.2 MG/DL (8.5-10.1); CARBON DIOXIDE 27 MMOL/L (21-32); CHLORIDE 90 MMOL/L (98-107); CREATININE SERUM 0.84 MG/DL (0.60-1.30); GFR ESTIMATED > 60; GLUCOSE 212 MG/DL (70-105); LIPASE 11 U/L (8-78); POTASSIUM 4.2 MMOL/L (3.6-5.0); SODIUM 128 MMOL/L (135-145); TOTAL PROTEIN 6.2 GM/DL (6.4-8.2)
[2018-11-12 14:47] LABS: BILIRUBIN,URINE NEGATIVE (NEGATIVE); CLARITY,URINE CLEAR; COLOR,URINE YELLOW; GLUCOSE, URINE (UA) 1+ (NEGATIVE); KETONES,URINE 3+ (NEGATIVE); LEUKOCYTE ESTERASE ,URINE 3+ (NEGATIVE); NITRITE,URINE NEGATIVE (NEGATIVE); PH,URINE 6 (5-9); PROTEIN,URINE 3+ (NEGATIVE); UROBILINOGEN,URINE NORMAL (NORMAL)
[2018-11-12 14:48] LABS: BAND NEUTROPHILS 2 %; BASOPHILS % (MANUAL) 0 %; EOSINOPHILS % (MANUAL) 0 %; LYMPHOCYTES % (MANUAL) 6 %; MONOCYTES % (MANUAL) 2 %; NEUTROPHILS % (MANUAL) 90 %; RBC MORPH NORMAL
[2018-11-12 14:52] LABS: BACTERIA,URINE LARGE /HPF; RBC,URINE RARE /HPF; WBC,URINE >100 /HPF
--- NOTE | 2018-11-12 15:12 | Diagnostic Imaging Report ---
PATIENT HISTORY: Pain, nausea and vomiting. TECHNIQUE: Single frontal view of the chest. COMPARISON: 10/02/2018. FINDINGS: Lung volumes are normal. There are linear opacities in the left lung base which appear stable since the prior exam, may represent atelectasis or scarring. No new consolidation is seen. The cardiac silhouette is stable in size. There is mild prominence of the vasculature at the ross bilaterally which appear stable. There are degenerative changes in the shoulders and spine with no acute osseous abnormality seen. IMPRESSION: No acute pulmonary abnormality seen in the lungs. Chronic findings as described above. Dictated by: Dictated on workstation # [id number]
--- NOTE | 2018-11-12 15:14 | Diagnostic Imaging Report ---
PROCEDURE: CT abdomen and pelvis without contrast. TECHNIQUE: Multiple contiguous axial images were obtained through the abdomen and pelvis without the use of intravenous contrast. INDICATION: Abdominal pain, nausea, vomiting, fever. FINDINGS: The heart size is normal. Lung bases are clear. The liver is normal in size without focal lesions. Gallbladder appears to be surgically absent. There is no biliary ductal dilatation. Spleen is normal. The pancreas and adrenal glands are unremarkable. Kidneys are normal in appearance. Aorta is nonaneurysmal. There is a fat-containing umbilical hernia. There is a moderate amount of retained fecal material likely reflecting some degree of constipation. There is no free air. There is no ascites. There is some diverticular disease. There is no pelvic mass, adenopathy, or free fluid. There are moderate degenerative changes in the spine. IMPRESSION: 1. Diverticular disease without evidence of diverticulitis. 2. Moderate amount of retained fecal material likely reflecting some degree of constipation. 3. Fat-containing umbilical hernia. 4. Moderate degenerative changes in the spine. Dictated by: Dictated on workstation # [id number]
[2018-11-12] MEDS ORDERED: NS IV 500 ML 500 ML IV SCH (15:15)
[2018-11-12] MEDS ORDERED: cefTRIAXone FOR IV USE 1,000 MG in WATER (STERILE) FOR INJECTION 10 ML IV ONE (15:15)
[2018-11-12] MEDS ORDERED: ONDA4TAB11 PO (15:18)
[2018-11-12] MEDS ORDERED: ONDANSETRON 4 MG/2 ML (SDV) Z0FRAN IVP ONE (15:45)
[2018-11-12] MEDS ORDERED: PROMETHAZINE INJ 25 MG/ML (PHENERGAN) AMP IVP ONE (16:00)
--- NOTE | 2018-11-12 16:27 | NUR ---
[facility]IA [facility] CONTACTED FOR PT TRANSPORT.
[2018-11-12] MEDS ORDERED: LORazepam INJ 2 MG/ML (ATIVAN) VIAL IVP PRN (16:45)
[2018-11-12 16:58] VITALS: BP 154/84
--- OUTSIDE RECORDS SUMMARY | 2018-11-14 09:48 | XMS REPORT | Clinical Summary ---
Author Author [facility] Organization [facility] Address Unknown Phone Unavailable Care Team Providers Care Women'S Studies Professor Name Role Phone Missael Jaramillo MD PCP Nadege Knapp RN Unavailable Unavailable Natasha Echols MD Unavailable Source Comments Some departments are not documenting in the electronic medical record. If you do not see the information that you expected, contact Release of Information in the Health Information Management department at [phone] for further assistance in locating additional records.[facility] Allergies Comments Active Allergy Reactions Severity Noted Date Amoxicillin RASH Medium 05/07/2015 Chocolate HEADACHE Low 05/07/2015 Irbesartan RASH Medium 10/02/2017 Patient experiences swelling and hot skin to the touch. 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 Right breast sono-guided biopsy 05/11/17 ([place], [place]) revealed grade 2 invasive ductal carcinoma. Ms. Nicole has been followed by Dr. Tello and is currently getting endocrine therapy. A PET/CT was ordered in May 2017 which showed abnormal uptake in the pelvis and there was a possible rectosigmoid mass. Ms. Nicole underwent right lumpectomy on 10/29/17. PATHOLOGY: Tumor: 1.5 cm ILC Margins Free From Tumor: Yes ER: positive MI: positive Her 2: negative Grade: 2 LVSI: no BREAST IMAGING: Mammogram: -- Bilateral screening mammogram 04/16/17 ([place], [place]) revealed scattered fibroglandular densities. In the [...] unremarkable. Ultrasound: -- Right breast ultrasound 05/06/17 ([place], [place]) revealed a poorly defined spiculated hypoechoic mass measuring 1.6 x 1.5 x 1.6 cm in the region of mammogram finding. There was internal blood flow. Biopsy was recommended. -- Right breast ultrasound 08/19/17 ([place], [place]) revealed at 9:30, 6 cm FTN, there was a hypoechoic mass with irregular margins measuring 1.3 x 1.5 x 1.4 cm and demonstrated internal vascularity which appeared slightly less prominent compared to previous exam. This was minimally smaller in size compared to prior measurement of 1.6 x 1.5 x 1.6 cm. -- Right breast ultrasound 09/16/17 ([place], [place]) revealed at 9:30, 6 cm FTN [...] axillary lymph node. Other: -- PET/CT 05/19/17 ([place], [place]) revealed abnormal uptake involving the left [...] hysterectomy 05/15/[address] Mario Michael in [place], [place] with a diagnosis of endometrial FIGO grade 1. Per pt., was told that they got it all and did not need further tx. Pt. has not had annual pelvic examinations or f/u since that time. 2. Pt. was referred from PCP Dr. Jaramillo to [facility] Dr. Salinas in [place], [place] on 04/18/15 for post-menopausal bleeding beginning [...] her CT Scan, which was done in [place], I suspect the areas of interest are: [...] thought of traveling from her home in [place] to the cancer center, radiation/chemotherapy. I also discussed her options should she decline any therapy-would recommend hospice. Consideration for epidural pain pump in the event of progressive pain. I have contacted the [facility] [place] and she has been scheduled with one of the medical oncologists as well as with Dr. Field, the radiation oncologist. If her tumor is ER+, after radiation, consideration for antiestrogen therapy, such as megace, AI, could be considered. Family History Medical History Relation Name Comments [...] Taken Vital Sign Reading 08/03/2018 2:16 PM MAORI LIAISON ADVISER Blood Pressure 158/61 08/03/2018 2:16 PM MAORI LIAISON ADVISER Pulse 65 08/03/2018 2:16 PM MAORI LIAISON ADVISER Temperature 36.8 C (98.2 F) 08/03/2018 2:16 PM MAORI LIAISON ADVISER Respiratory Rate 18 08/03/2018 2:16 PM MAORI LIAISON ADVISER Oxygen Saturation 100% - Inhaled Oxygen - Concentration 08/03/2018 2:16 PM MAORI LIAISON ADVISER Weight 83.7 kg (184 lb 9.6 oz) 08/03/2018 2:16 PM MAORI LIAISON ADVISER Height 154.9 cm (5' 1") 08/03/2018 2:16 PM MAORI LIAISON ADVISER Body Mass Index 34.88 Plan of Treatment Health Maintenance Due Date Last Done Comments PHYSICAL (COMPREHENSIVE) 1945 EXAM DILATED EYE EXAM 1956 DTAP/TDAP VACCINES (1 - 1956 Tdap) FOOT EXAM 1956 HBA1C 1956 SHINGLES RECOMBINANT 1988 VACCINE (1 of 2) OSTEOPOROSIS 2003 SCREENING/MONITORING PNEUMONIA (PCV13/PPSV23) 2003 VACCINES (1 of 2 - PCV13) INFLUENZA VACCINE 04/14/2019 06/18/2009, 06/21/2008, 07/14/2003, Additional history exists Implants Device Identifier Shelf Expiration Date Model / Serial / Lot Implanted Type Area Manufactur er 06/02/2018 / / [id number] [employer]ark-10/08/2017 Clip Implanted: Qty: 1 on 10/08/2017 by Mauro Pacheco MD Results Not on filefrom Last 3 Months Insurance Payer Benefit Subscriber ID Type Phone Address Plan / Group MEDICARE MEDICARE xxxxxxxxxx Medicare PART A AND B [employer] xxxxxxxxx PPO [employer] Advance Directives Patient has advance care planning documents on file. For more information, please contact: [facility] [address] [place] [address]
== END 2018-11-12 16:58 | disposition home or self-care (01) ==
LOC: EDUNIT# 13:42 → ER 13:43
DX: N39.0 Urinary tract infection, site not specified (principal); I10 Essential (primary) hypertension; E66.9 Obesity, unspecified; E11.40 Type 2 diabetes mellitus with diabetic neuropathy, unspecified; Z85.3 Personal history of malignant neoplasm of breast; Z85.42 Personal history of malignant neoplasm of other parts of uterus; Z68.30 Body mass index [BMI] 30.0-30.9, adult; Z85.44 Personal history of malignant neoplasm of other female genital organs; Z92.21 Personal history of antineoplastic chemotherapy; Z80.1 Family history of malignant neoplasm of trachea, bronchus and lung; Z80.0 Family history of malignant neoplasm of digestive organs; Z82.49 Family history of ischemic heart disease and other diseases of the circulatory system; Z80.49 Family history of malignant neoplasm of other genital organs; Z88.0 Allergy status to penicillin; Z91.040 Latex allergy status; Z91.048 Other nonmedicinal substance allergy status; Z88.8 Allergy status to other drugs, medicaments and biological substances; Z79.4 Long term (current) use of insulin; Z98.890 Other specified postprocedural states; Z90.11 Acquired absence of right breast and nipple; Z90.710 Acquired absence of both cervix and uterus
CPT/HCPCS: 36415; 51701; 71045; 74176; 80053; 81000; 83605; 83690; 85007; 85027; 85610; 87040; 87077; 87088; 87186; 87804

== ENCOUNTER 2018-11-18 08:33 | Emergency (ER) | payer MEDICARE, OTHER ==
[~2018-11-18] VITALS: Ht 154.9 cm; Wt 68.0 kg
[~2018-11-18 08:33] MED LIST changes: +ONDA4TAB11 PO
[2018-11-18] MEDS ORDERED: NS IV 1000 ML 1,000 ML IV ONE ×2 (08:40→09:56)
[2018-11-18] MEDS ORDERED: risperiDONE 0.25 MG (RisperDAL) TAB PO ONE ×2 (08:45→14:00)
[2018-11-18] MEDS ORDERED: ONDANSETRON 4 MG/2 ML (SDV) Z0FRAN IVP ONE (08:45)
[2018-11-18] MEDS ORDERED: LORazepam INJ 2 MG/ML (ATIVAN) VIAL IVP ONE ×2 (08:45→14:45)
[2018-11-18 08:59] LABS: BASOPHILS % (AUTO) 0 % (0-10); EOSINOPHILS % (AUTO) 1 % (0-10); HEMATOCRIT 22 % (35-52); HEMOGLOBIN 7.5 G/DL (11.5-16.0); LYMPHOCYTES # (AUTO) 0.5 X 10^3 (1.0-4.0); LYMPHOCYTES % (AUTO) 9 % (12-44); MEAN CORPUSCULAR HEMOGLOBIN 32 PG (25-34); MEAN CORPUSCULAR HGB CONC 34 G/DL (32-36); MEAN CORPUSCULAR VOLUME 93 FL (80-99); MEAN PLATELET VOLUME 7.6 FL (7.4-10.4); MONOCYTES # (AUTO) 0.8 X 10^3 (0.0-1.0); MONOCYTES % (AUTO) 13 % (0-12); NEUTROPHILS # (AUTO) 4.5 X 10^3 (1.8-7.8); NEUTROPHILS % (AUTO) 77 % (42-75); PLATELET COUNT 312 10^3/uL (130-400); RED CELL DISTRIBUTION WIDTH 13.7 % (10.0-14.5); WHITE BLOOD COUNT 5.8 10^3/uL (4.3-11.0)
[2018-11-18 09:09] LABS: BILIRUBIN,URINE NEGATIVE (NEGATIVE); CLARITY,URINE VERY CLOUDY; COLOR,URINE YELLOW; GLUCOSE, URINE (UA) 2+ (NEGATIVE); KETONES,URINE 1+ (NEGATIVE); LEUKOCYTE ESTERASE ,URINE 2+ (NEGATIVE); NITRITE,URINE NEGATIVE (NEGATIVE); PH,URINE 6 (5-9); PROTEIN,URINE 3+ (NEGATIVE); UROBILINOGEN,URINE NORMAL (NORMAL)
[2018-11-18 09:23] LABS: BACTERIA,URINE TRACE /HPF; SQUAMOUS EPITHELIAL CELL,UR >50 /HPF
[2018-11-18 09:26] LABS: ALANINE AMINOTRANSFERASE 8 U/L (0-55); ALKALINE PHOSPHATASE 71 U/L (40-136); BILIRUBIN,TOTAL 0.3 MG/DL (0.1-1.0); BUN/CREATININE RATIO 15; CALCIUM 8.4 MG/DL (8.5-10.1); CARBON DIOXIDE 28 MMOL/L (21-32); CHLORIDE 90 MMOL/L (98-107); CREATININE SERUM 0.87 MG/DL (0.60-1.30); GFR ESTIMATED > 60; GLUCOSE 165 MG/DL (70-105); MAGNESIUM 1.2 MG/DL (1.8-2.4); POTASSIUM 3.7 MMOL/L (3.6-5.0); SODIUM 126 MMOL/L (135-145); TOTAL PROTEIN 5.3 GM/DL (6.4-8.2)
[2018-11-18 09:47] LABS: TSH (THYROID ANALYZER) 2.15 UIU/ML (0.35-4.94)
[2018-11-18 10:58] LABS: BILIRUBIN,URINE NEGATIVE (NEGATIVE); CLARITY,URINE SLIGHTLY CLOUDY; COLOR,URINE YELLOW; GLUCOSE, URINE (UA) NEGATIVE (NEGATIVE); KETONES,URINE NEGATIVE (NEGATIVE); LEUKOCYTE ESTERASE ,URINE 2+ (NEGATIVE); NITRITE,URINE NEGATIVE (NEGATIVE); PH,URINE 7 (5-9); PROTEIN,URINE 3+ (NEGATIVE); UROBILINOGEN,URINE NORMAL (NORMAL)
[2018-11-18 11:40] LABS: RBC,URINE >100 /HPF
[2018-11-18 11:41] LABS: BACTERIA,URINE TRACE /HPF; SQUAMOUS EPITHELIAL CELL,UR 25-50 /HPF
--- NOTE | 2018-11-18 12:00 | NUR ---
[facility] here to assess pt at this time.
--- NOTE | 2018-11-18 12:50 | NUR ---
[facility] in room with pt and family at this time.
[2018-11-18] MEDS ORDERED: cefTRIAXone FOR IV USE 1,000 MG in WATER (STERILE) FOR INJECTION 10 ML IV ONE (13:30)
[2018-11-18] MEDS: LORazepam INJ 2 MG/ML (ATIVAN) VIAL IVP ONE ×2 (14:13→15:07)
--- NOTE | 2018-11-18 14:33 | ED Psychosocial ---
General Chief Complaint: Altered Mental Status Stated Complaint: AMS Nursing Triage Note: PT PRESENTS TO ED VIA EMS FROM [facility] FOR INCREASED AGITATION AND CONFUSION. PT HAS HX OF DEMENTIA WITH BEHVIORAL DISTURBANCES. PRISON STAFF REPORTS PT REFUSED TO TAKE HER MEDS THIS AM. Source: patient, EMS, old records Exam Limitations: clinical condition History of Present Illness Date Seen by Provider: Nov 18, 2018 Time Seen by Provider: 08:34 Initial Comments This 78-year-old woman [facility] very [facility]. She was recently admitted to [facility] after a stay at [facility]. She reportedly has been on Rocephin for treatment of urinary tract infection. She is now on oral antibiotics. EMS reports blood sugar to be 223. Patient also was reported to have vomited this morning is 03:00. She either did not or could not take her morning medications due to vomiting. The content of patient's speech does not correlate with the situation. She appears acutely psychotic. She does have a history of psychosis for which she takes Risperdal. Allergies and Home Medications Allergies Coded Allergies: miconazole (Verified Allergy, Intermediate, RASH, 04/21/17) rash/hives ampicillin (Unverified Allergy, Unknown, 04/21/17) lanolin (Unverified Allergy, Unknown, 04/21/17) Wjlffht-Sik-Ear Reductase Inhibitor (Unverified Adverse Reaction, Unknown , 04/21/17) adhesive tape (Unverified Adverse Reaction, Unknown, 04/21/17) latex (Unverified Adverse Reaction, Unknown, 04/21/17) Home Medications Acetaminophen 325 Mg Tablet, 650 MG PO Q4H PRN for PAIN-MILD, (Reported) Amitriptyline HCl 25 Mg Tablet, 25 MG PO HS, (Reported) Amlodipine Besylate 5 Mg Tablet, 5 MG PO DAILY, (Reported) Calcium Carbonate/Vitamin D3 1 Each Tablet, 1 TAB PO BID, (Reported) Cholecalciferol (Vitamin D3) 5,000 Unit Capsule, 5,000 UNIT PO DAILY, (Reported) Citalopram Hydrobromide 10 Mg Tablet, 10 MG PO HS, (Reported) Cranberry Conc/Ascorbic Acid 1 Each Capsule, 2 CAP PO DAILY, (Reported) Desmopressin Acetate 0.2 Mg Tablet, 0.2 MG PO HS, (Reported) Dextran 70/Hypromellose 15 Ml Drops, 1-2 DROPS OU QID PRN for DRY EYES, ( Reported) Gabapentin 100 Mg Capsule, 100 MG PO BID, (Reported) Guaifenesin/Dextromethorphan 237 Ml Liquid, 5 ML PO Q4H PRN for COUGH, (Reported ) Insulin Glargine,Hum.rec.anlog 100 Unit/1 Ml Insuln.pen, 20 UNIT SQ HS, ( Reported) Lactobacillus Rhamnosus GG 1 Each Capsule, 1 CAP PO 1200, (Reported) Lisinopril 20 Mg Tablet, 20 MG PO DAILY, (Reported) Magnesium Oxide 400 Mg Tablet, 400 MG PO 1200, (Reported) Multivits,Ca,Minerals/Iron/FA 1 Each Tablet, 1 TAB PO DAILY, (Reported) Ondansetron 4 Mg Tab.rapdis, 4 MG PO Q6H PRN for NAUSEA/VOMITING Prescribed by: SAI ELENA on 11/12/18 1518 Pantoprazole Sodium 40 Mg Tablet.dr, 40 MG PO DAILY, (Reported) Ranitidine HCl 150 Mg Tablet, 150 MG PO DAILY PRN for HEARTBURN, (Reported) Solifenacin Succinate 5 Mg Tablet, 5 MG PO DAILY, (Reported) Triamcinolone Acet 15 Gm Cr, 1 GM TP DAILY, (Reported) Vit A,C & E/Lutein/Minerals 1 Each Tablet, 1 TAB PO DAILY, (Reported) Patient Home Medication List Home Medication List Reviewed: Yes Review of Systems Constitutional: no symptoms reported EENTM: no symptoms reported Respiratory: no symptoms reported Gastrointestinal: no symptoms reported Genitourinary: see HPI : No Musculoskeletal: no symptoms reported Skin: no symptoms reported Psychiatric/Neurological: See HPI Past Chcqbgo-Dcxtoi-Fuvhmw Hx Past Med/Social Hx: Reviewed Nursing Past Med/Soc Hx Patient Social History Alcohol Use: Denies Use Recreational Drug Use: No Smoking Status: Never a Smoker Recent Foreign Travel: No Contact w/Someone Who Travel: No Recent Infectious Disease Expo: No Recent Hopitalizations: No Physical Abuse: No Sexual Abuse: No Mistreated: No Fear: No Immunizations Up To Date Tetanus Booster (TDap): Unknown Date of Pneumonia Vaccine: Oct 02, 2015 Date of Influenza Vaccine: Sep 07, 2018 Seasonal Allergies Seasonal Allergies: No Past Medical History Surgeries: Yes (bilat knee scopes, umb hernia, R breast lumpectomy, ) Abdominal, Section, Eye Surgery, Gallbladder, Hysterectomy, Oophorectomy, Orthopedic Respiratory: No Cardiac: Yes Chronic Edema/Swelling, Hypertension Neurological: Yes Dementia, Neuropathy Reproductive Disorders: Yes (CANCER--SEE BELOW) Sexually Transmitted Disease: No HIV/AIDS: No Genitourinary: No Renal Failure Gastrointestinal: Yes (hx of colon mass) Gastroesophageal Reflux Musculoskeletal: Yes Degenerate Disk Disease, Arthritis, Chronic Back Pain Endocrine: Yes (Type II, obesity) Diabetes, Insulin dep HEENT: Yes Macular Degeneration Loss of Vision: Bilateral Hearing Impairment: Denies Cancer: Yes (ENDOMETRIAL ) Breast, Uterine, Vaginal Did You Recieve Any Treatments: Yes What Type of Treatment Did You: Chemotherapy, Radiation, Surgical Intervention Psychosocial: Yes (DELUSIONS, psychosis) Sleep Difficulties, Anxiety Integumentary: Yes Pruritis, Recent Skin Changes Blood Disorders: No ("bleeds easily") Adverse Reaction/Blood Tranf: No Family Medical History FH: lung cancer G8 SISTER FH: stomach cancer G8 BROTHER FH: uterine cancer 19 MOTHER Myocardial infarction 19 FATHER Neoplasm SON No Pertinent Family Hx, Hypertension Physical Exam Vital Signs - First Documented 11/18/18 08:36 Temp 97.9 Pulse 63 Resp 18 B/P (MAP) 142/65 (90) Pulse Ox 96 Capillary Refill : Less Than 3 Seconds Height, Weight, BMI Height: 5'1.00" Weight: 150lbs. 0.0oz. [id number]; 30.8 BMI Method:Estimated General Appearance: WD/WN, moderate distress HEENT: PERRL/EOMI, normal ENT inspection Neck: normal inspection Respiratory: lungs clear, normal breath sounds, no respiratory distress, no accessory muscle use Cardiovascular: regular rate, rhythm, no edema, no murmur Gastrointestinal: non tender, soft Extremities: normal inspection, no pedal edema Neurologic/Psychiatric: weight and test bar clerk II-XII nml as tested, no motor/sensory deficits, alert, other (agitated, psychotic) Appearance/Memory: disheveled Behavior/Eye Contact: belligerent, compulsive, uncooperative Thoughts/Hallucinations: delusions Skin: normal color, warm/dry Progress/Results/Core Measures Results/Orders Lab Results Laboratory Tests Test 11/18/18 08:50 11/18/18 09:02 11/18/18 10:36 Range/Units White Blood Count 5.8 4.3-11.0 10^3/uL Red Blood Count 2.38 L 4.35-5.85 10^6/uL Hemoglobin 7.5 L 11.5-16.0 G/DL Hematocrit 22 L 35-52 % Mean Corpuscular Volume 93 80-99 FL Mean Corpuscular Hemoglobin 32 25-34 PG Mean Corpuscular Hemoglobin Concent 34 32-36 G/DL Red Cell Distribution Width 13.7 10.0-14.5 % Platelet Count 312 130-400 10^3/uL Mean Platelet Volume 7.6 7.4-10.4 FL Neutrophils (%) (Auto) 77 H 42-75 % Lymphocytes (%) (Auto) 9 L 12-44 % Monocytes (%) (Auto) 13 H 0-12 % Eosinophils (%) (Auto) 1 0-10 % Basophils (%) (Auto) 0 0-10 % Neutrophils # (Auto) 4.5 1.8-7.8 X 10^3 Lymphocytes # (Auto) 0.5 L 1.0-4.0 X 10^3 Monocytes # (Auto) 0.8 0.0-1.0 X 10^3 Eosinophils # (Auto) 0.0 0.0-0.3 10^3/uL Basophils # (Auto) 0.0 0.0-0.1 10^3/uL Sodium Level 126 L 135-145 MMOL/L Potassium Level 3.7 3.6-5.0 MMOL/L Chloride Level 90 L 98-107 MMOL/L Carbon Dioxide Level 28 21-32 MMOL/L Anion Gap 8 5-14 MMOL/L Blood Urea Nitrogen 13 7-18 MG/DL Creatinine 0.87 0.60-1.30 MG/DL Estimat Glomerular Filtration Rate > 60 BUN/Creatinine Ratio 15 Glucose Level 165 H 70-105 MG/DL Calcium Level 8.4 L 8.5-10.1 MG/DL Corrected Calcium 9.2 8.5-10.1 MG/DL Magnesium Level 1.2 L 1.8-2.4 MG/DL Total Bilirubin 0.3 0.1-1.0 MG/DL Aspartate Amino Transf (AST/SGOT) 14 5-34 U/L Alanine Aminotransferase (ALT/SGPT) 8 0-55 U/L Alkaline Phosphatase 71 40-136 U/L Total Protein 5.3 L 6.4-8.2 GM/DL Albumin 3.0 L 3.2-4.5 GM/DL TSH [place] Testing 2.15 0.35-4.94 UIU/ML Urine Color YELLOW YELLOW Urine Clarity VERY CLOUDY H SLIGHTLY CLOUDY Urine pH 6 7 5-9 Urine Specific [place] 1.015 L 1.010 L 1.016-1.022 Urine Protein 3+ H 3+ H NEGATIVE Urine Glucose (UA) 2+ H NEGATIVE NEGATIVE Urine Ketones 1+ H NEGATIVE NEGATIVE Urine Nitrite NEGATIVE NEGATIVE NEGATIVE Urine Bilirubin NEGATIVE NEGATIVE NEGATIVE Urine Urobilinogen NORMAL NORMAL NORMAL MG/DL Urine Leukocyte Esterase 2+ H 2+ H NEGATIVE Urine RBC (Auto) 2+ H 5+ H NEGATIVE Urine RBC 2-5 H >100 H /HPF Urine WBC 10-25 H 10-25 H /HPF Urine Squamous Epithelial Cells >50 H 25-50 H /HPF Urine Crystals NONE NONE /LPF Urine Bacteria TRACE TRACE /HPF Urine Casts NONE NONE /LPF Urine Mucus NEGATIVE NEGATIVE /LPF Urine Culture Indicated YES YES My Orders Orders - SANTIAGO POOLE MD Cbc With Automated Diff (11/18/18 08:40) Comprehensive Metabolic Panel (11/18/18 08:40) Magnesium (11/18/18 08:40) Thyroid Analyzer (11/18/18 08:40) Ua Culture If Indicated (11/18/18 08:40) Saline Lock/Iv-Start (11/18/18 08:40) Ns Iv 1000 Ml (Sodium Chloride 0.9%) (11/18/18 08:40) Ondansetron Injection (Zofran Injectio (11/18/18 08:45) Risperidone Tablet (Risperdal Tablet) (11/18/18 08:45) Lorazepam Injection (Ativan Injection) (11/18/18 08:45) Saline Lock/Iv-Start (11/18/18 09:56) Ns Iv 1000 Ml (Sodium Chloride 0.9%) (11/18/18 09:56) Ua Culture If Indicated (11/18/18 10:51) Urine Culture (11/18/18 10:36) Ceftriaxone For Iv Use (Rocephin For I (11/18/18 13:30) Risperidone Tablet (Risperdal Tablet) (11/18/18 14:00) Lorazepam Injection (Ativan Injection) (11/18/18 14:15) Lorazepam Injection (Ativan Injection) (11/18/18 14:45) Medications Given in ED Current Medications Medications Dose Ordered Sig/Anupam Route Start Time Stop Time Status Last Admin Dose Admin Ceftriaxone Sodium 1000 mg/ Sterile Water 10 ml @ 200 mls/hr ONCE ONCE IV 11/18/18 13:30 11/18/18 13:32 DC 11/18/18 14:12 200 MLS/HR Lorazepam 0.5 mg ONCE ONCE IVP 11/18/18 14:45 11/18/18 14:46 DC 11/18/18 14:57 0.5 MG Risperidone 0.25 mg ONCE ONCE PO 11/18/18 14:00 11/18/18 14:01 DC 11/18/18 14:37 0.25 MG Vital Signs/I&O 11/18/18 15:15 Pulse 87 Resp 20 B/P (MAP) 147/79 (101) Pulse Ox 98 Blood Pressure Mean: 90 Progress Progress Note : Time: 14:50 Progress Note Patient was seen and examined. She was acutely psychotic. She was given Ativan 0.5 mg and her usual dose of risperidone. Zofran was also given. This seemed to calm her down for a few hours. Patient was assessed by the [facility] behavioral health screener. He was approved for admission to [facility]. Dr. Hernandez presented to the ER and assess the patient as well. A straight catheter UA was obtained. This appeared to represent urinary tract infection but squamous cells are present. At the request of Dr. Mcdowell, a repeat straight catheter UA was obtained with similar results. Rocephin was administered. Rocephin was chosen based on prior culture results. Patient has since become agitated again. Risperdal and Ativan were again given. A repeat dose of Ativan was needed. EMS transport is pending. She was hyponatremic and 1 L of IV normal saline was administered. Departure Impression Primary Impression: Acute psychosis Additional Impressions: Dementia Qualified Codes: F03.91 - Unspecified dementia with behavioral disturbance Urinary tract infection Qualified Codes: N39.0 - Urinary tract infection, site not specified Hyponatremia Chronic anemia Disposition: XFER SHT-TRM HOSP Condition: Stable Transfer Transfer Time: 15:15 Transfer Facility: [facility] Method of Transfer: EMS Departure-Patient Inst. Referrals: KAREN MORALES DO (PCP/Family) Primary Care Physician SANTIAGO POOLE MD Nov 18, 2018 14:33
[2018-11-18 15:15] VITALS: BP 147/79
== END 2018-11-18 15:15 | disposition short-term general hospital (02) ==
LOC: EDUNIT# 08:33 → ER 08:34
DX: F23 Brief psychotic disorder (principal); F03.91 Unspecified dementia, unspecified severity, with behavioral disturbance; N39.0 Urinary tract infection, site not specified; E87.1 Hypo-osmolality and hyponatremia; D63.8 Anemia in other chronic diseases classified elsewhere; I10 Essential (primary) hypertension; K21.9 Gastro-esophageal reflux disease without esophagitis; E11.40 Type 2 diabetes mellitus with diabetic neuropathy, unspecified; E66.9 Obesity, unspecified; F41.9 Anxiety disorder, unspecified; Z85.44 Personal history of malignant neoplasm of other female genital organs; Z85.42 Personal history of malignant neoplasm of other parts of uterus; Z88.0 Allergy status to penicillin; Z80.1 Family history of malignant neoplasm of trachea, bronchus and lung; Z80.0 Family history of malignant neoplasm of digestive organs; Z82.49 Family history of ischemic heart disease and other diseases of the circulatory system; Z68.30 Body mass index [BMI] 30.0-30.9, adult; Z92.21 Personal history of antineoplastic chemotherapy; Z85.3 Personal history of malignant neoplasm of breast; Z91.048 Other nonmedicinal substance allergy status; Z91.040 Latex allergy status; Z88.8 Allergy status to other drugs, medicaments and biological substances; Z87.440 Personal history of urinary (tract) infections; Z79.4 Long term (current) use of insulin; Z98.890 Other specified postprocedural states; Z90.710 Acquired absence of both cervix and uterus
CPT/HCPCS: 36415; 51701; 80053; 81000; 83735; 84443; 85025; 87088